=== PATIENT | male | born 1960 | race Caucasian/White ===

== ENCOUNTER 2016-07-14 23:13 | Inpatient (IN) | payer OTHER ==
[2016-07-15] MEDS ORDERED: HYDROmorphone 1 MG/ML 1 ML SYRINGE IVP STA ×2 (00:08→01:52)
[2016-07-15] MEDS ORDERED: SODIUM CHLORIDE 0.9% 1,000 ML IV STA (00:08)
[2016-07-15] MEDS ORDERED: SODIUM CHLORIDE 0.9% 500 ML IV STA (00:08)
--- NOTE | 2016-07-15 00:16 | ED ---
General Adult HPI - General Source: patient, family, RN notes reviewed, old records reviewed Mode of arrival: wheelchair Limitations: no limitations <Ced Ordaz - Last Filed: 07/15/16 01:17> <Rio Kahn - Last Filed: 07/15/16 03:02> - General Chief complaint: Abdominal Pain Stated complaint: Abd /Back Pain Time Seen by Provider: 07/14/16 23:57 - History of Present Illness Initial comments: Chief complaint and history of present illness is a 56-year-old male brought to emergency by family because of abdominal pain. Patient reports it seems toward the epigastric to right upper quadrant go straight through to the back. Patient 's temp was 101.0 upon arrival he did not think her pneumonia had a fever. Patient reports this is pain similar to the pain he had when he was previously admitted in November of last year that time he had pancreatitis with amylase and lipase significantly elevated. CAT scan that time showed acute pancreatitis with fluid in the adjacent area. Patient denies alcohol use or problems with his gallbladder. (Ced Ordaz) - Related Data Home Medications Medication Instructions Recorded Confirmed Bisoprolol-Hctz 10-6.25 mg [Ziac 1 tab PO DAILY 11/23/15 07/14/16 10-6.25 MG] Lisinopril [Zestril] 10 mg PO DAILY 11/23/15 07/14/16 Allergies Allergy/AdvReac Type Severity Reaction Status Date / Time No Known Allergies Allergy Verified 07/14/16 23:36 Review of Systems ROS Other: All systems not noted in ROS Statement are negative. <Ced Ordaz - Last Filed: 07/15/16 01:17> ROS Other: All systems not noted in ROS Statement are negative. <Rio Kahn - Last Filed: 07/15/16 03:02> ROS Statement: Those systems with pertinent positive or pertinent negative responses have been documented in the HPI. Review of systems. Patient denies any visual acuity or headache no stiff neck no chest pain or shortness of breath he has discomfort to the right upper quadrant the course through to the back. No nausea no vomiting has had a bowel movement today. No extremity pain but he has does have peripheral edema. All systems reviewed Past medical problems significant for hypertension for which she's taken several medications. Denies any surgeries. No history noncontributory. No known ALLERGIES. Patient states alcohol use is rare beer when he does drink. Every day smoker encouraged to stop smoking. (Ced Ordaz) Past Medical History Past Medical History: Hypertension Additional Past Medical History / Comment(s): . History of Any Multi-Drug Resistant Organisms: None Reported Past Surgical History: No Surgical Hx Reported Past Anesthesia/Blood Transfusion Reactions: No Reported Reaction Past Psychological History: No Psychological Hx Reported Smoking Status: Never smoker Past Alcohol Use History: Occasional Additional Past Alcohol Use History / Comment(s): Pt states 1-2 beers socially on occasion, family states at least a fifth per day Past Drug Use History: None Reported <Ced Ordaz - Last Filed: 07/15/16 01:17> General Exam Limitations: no limitations <Ced Ordaz - Last Filed: 07/15/16 01:17> <Rio Kahn - Last Filed: 07/15/16 03:02> - General Exam Comments Initial Comments: General: The patient is awake and alert, lying of epigastric and right upper quadrant pain that goes straight through to the back. No nausea no vomiting mild weakness just today. Vital signs shows temperature 101.0 pulse 73 respiratory rate 18 pulse ox 97% room air blood pressure 104/55. Eye: Pupils are equal, round and reactive to light, extra-ocular movements are intact ; there is normal conjunctiva bilaterally. No signs of icterus. Ears, nose, mouth and throat: There are moist mucous membranes and no oral lesions. Neck: The neck is supple, there is no tenderness , no anterior cervical lymphadenopathy. Cardiovascular: There is a regular rate and rhythm. No murmur, rub or gallop is appreciated. Respiratory: Lungs are clear to auscultation, respirations are non-labored, breath sounds are equal. No wheezes, stridor, rales, or rhonchi. Gastrointestinal: Tender with deep palpation to the right upper quadrant. No masses appreciated. Active bowel sounds. No rebound or referred pain. Abdominal pain goes straight through to the back area. No skin rashes noted. Back: Back pain that starts in the epigastric region of the abdomen. Musculoskeletal: Normal ROM, no tenderness, pitting edema to his knees. Neurological: No neuro deficits. Skin is warm and dry and no rashes or lesions are noted. (Ced Ordaz) Medical Decision Making - Lab Data Result diagrams: 07/15/16 00:15 04/10/17 00:15 <Ced Ordaz - Last Filed: 07/15/16 01:17> - Lab Data Result diagrams: 07/15/16 00:15 07/15/16 00:15 <Rio Kahn - Last Filed: 07/15/16 03:02> - Medical Decision Making Labs still pending. X-rays still pending. Final disposition will be determined by Dr. Kahn (Ced Ordaz) - Lab Data Lab Results 07/15/16 07/15/16 07/15/16 Range/Units 00:15 00:15 00:15 WBC 11.6 H (3.8-10.6) k/uL RBC 4.27 L (4.30-5.90) m/uL Hgb 14.6 (13.0-17.5) gm/dL Hct 44.9 (39.0-53.0) % MCV 105.2 H (80.0-100.0) fL MCH 34.2 (25.0-35.0) pg MCHC 32.5 (31.0-37.0) g/dL RDW 15.0 (11.5-15.5) % Plt Count 59 L (150-450) k/uL Neutrophils % 87 % Lymphocytes % 3 % Monocytes % 7 % Eosinophils % 0 % Basophils % 0 % Neutrophils # 10.1 H (1.3-7.7) k/uL Lymphocytes # 0.4 L (1.0-4.8) k/uL Monocytes # 0.9 (0-1.0) k/uL Eosinophils # 0.0 (0-0.7) k/uL Basophils # 0.0 (0-0.2) k/uL Manual Slide Review Performed Macrocytosis Moderate PT (9.0-12.0) sec INR (<1.1) APTT (22.0-30.0) sec Sodium 126 L (137-145) mmol/L Potassium 4.6 (3.5-5.1) mmol/L Chloride 97 L (98-107) mmol/L Carbon Dioxide 23 (22-30) mmol/L Anion Gap 6 mmol/L BUN 10 (9-20) mg/dL Creatinine 0.90 (0.66-1.25) mg/dL Est GFR (MDRD) Af Amer >60 (>60 ml/min/1.73 sqM) Est GFR (MDRD) Non-Af >60 (>60 ml/min/1.73 sqM) Glucose 101 H (74-99) mg/dL Plasma Lactic Acid Mason 1.8 (0.7-2.0) mmol/L Calcium 7.9 L (8.4-10.2) mg/dL Total Bilirubin 6.3 H (0.2-1.3) mg/dL AST 177 H (17-59) U/L ALT 76 H (21-72) U/L Alkaline Phosphatase 116 (38-126) U/L Total Protein 6.9 (6.3-8.2) g/dL Albumin 2.9 L (3.5-5.0) g/dL Amylase 1681 H* (30-110) U/L Lipase >14061 H (23-300) U/L Urine Color Urine Appearance (Clear) Urine pH (5.0-8.0) Ur Specific Pike (1.001-1.035) Urine Protein (Negative) Urine Glucose (UA) (Negative) Urine Ketones (Negative) Urine Blood (Negative) Urine Nitrite (Negative) Urine Bilirubin (Negative) Urine Urobilinogen (<2.0) mg/dL Ur Leukocyte Esterase (Negative) Serum Alcohol <10 mg/dL 07/15/16 07/15/16 Range/Units 00:15 02:04 WBC (3.8-10.6) k/uL RBC (4.30-5.90) m/uL Hgb (13.0-17.5) gm/dL Hct (39.0-53.0) % MCV (80.0-100.0) fL MCH (25.0-35.0) pg MCHC (31.0-37.0) g/dL RDW (11.5-15.5) % Plt Count (150-450) k/uL Neutrophils % % Lymphocytes % % Monocytes % % Eosinophils % % Basophils % % Neutrophils # (1.3-7.7) k/uL Lymphocytes # (1.0-4.8) k/uL Monocytes # (0-1.0) k/uL Eosinophils # (0-0.7) k/uL Basophils # (0-0.2) k/uL Manual Slide Review Macrocytosis PT 14.7 H (9.0-12.0) sec INR 1.5 (<1.1) APTT 26.4 (22.0-30.0) sec Sodium (137-145) mmol/L Potassium (3.5-5.1) mmol/L Chloride (98-107) mmol/L Carbon Dioxide (22-30) mmol/L Anion Gap mmol/L BUN (9-20) mg/dL Creatinine (0.66-1.25) mg/dL Est GFR (MDRD) Af Amer (>60 ml/min/1.73 sqM) Est GFR (MDRD) Non-Af (>60 ml/min/1.73 sqM) Glucose (74-99) mg/dL Plasma Lactic Acid Mason (0.7-2.0) mmol/L Calcium (8.4-10.2) mg/dL Total Bilirubin (0.2-1.3) mg/dL AST (17-59) U/L ALT (21-72) U/L Alkaline Phosphatase (38-126) U/L Total Protein (6.3-8.2) g/dL Albumin (3.5-5.0) g/dL Amylase (30-110) U/L Lipase (23-300) U/L Urine Color Brown Urine Appearance Clear (Clear) Urine pH 6.5 (5.0-8.0) Ur Specific Pike 1.014 (1.001-1.035) Urine Protein Trace H (Negative) Urine Glucose (UA) Negative (Negative) Urine Ketones Negative (Negative) Urine Blood Negative (Negative) Urine Nitrite Negative (Negative) Urine Bilirubin 2+ H (Negative) Urine Urobilinogen 8.0 (<2.0) mg/dL Ur Leukocyte Esterase Negative (Negative) Serum Alcohol mg/dL Disposition <Ced Ordaz - Last Filed: 07/15/16 01:17> <Rio Kahn - Last Filed: 07/15/16 03:02> Clinical Impression: Acute pancreatitis, unspecified, Abdominal pain Disposition: ADMITTED IP TO THIS [facility] Condition: Serious
[2016-07-15 00:34] LABS: Basophils % (A) 0 %; CHCM 32.5; Eosinophils % (A) 0 %; HCT 44.9 % (39.0-53.0); HDW 2.41; HGB 14.6 gm/dL (13.0-17.5); Luc # (Auto) 0.19; Luc % (Auto) 2; Lymphocytes # (A) 0.4 k/uL (1.0-4.8); Lymphocytes % (A) 3 %; MCH 34.2 pg (25.0-35.0); MCHC 32.5 g/dL (31.0-37.0); MCV 105.2 fL (80.0-100.0); Macrocytosis Moderate; Mean Platelet Volume 8.1; Monocytes # (A) 0.9 k/uL (0-1.0); Monocytes % (A) 7 %; Neutrophils # (A) 10.1 k/uL (1.3-7.7); Neutrophils % (A) 87 %; RBC 4.27 m/uL (4.30-5.90); WBC 11.6 k/uL (3.8-10.6); WBC (Perox) 11.11
[2016-07-15 00:46] LABS: INR 1.5 (<1.1); Partial Thromboplastin Time 26.4 sec (22.0-30.0); Prothrombin Time 14.7 sec (9.0-12.0)
[2016-07-15 01:02] LABS: Alcohol <10 mg/dL; Anion Gap 6 mmol/L; Calcium 7.9 mg/dL (8.4-10.2); Carbon Dioxide 23 mmol/L (22-30); Chloride 97 mmol/L (98-107); Glucose 101 mg/dL (74-99); Non-African American GFR(MDRD) >60 (>60 ml/min/1.73 sqM); Sodium 126 mmol/L (137-145); Total Bilirubin 6.3 mg/dL (0.2-1.3)
[2016-07-15 01:12] LABS: Potassium 4.6 mmol/L (3.5-5.1)
[2016-07-15 01:13] LABS: Blood Urea Nitrogen 10 mg/dL (9-20); Manual Review Performed; Total Protein 6.9 g/dL (6.3-8.2)
[2016-07-15 01:14] LABS: ALT 76 U/L (21-72); AST 177 U/L (17-59)
[2016-07-15 01:15] LABS: Alkaline Phosphatase 116 U/L (38-126)
--- NOTE | 2016-07-15 01:38 | XR ---
EXAM: XR Abdomen Complete, 2 or More Views. CLINICAL HISTORY: Right-sided abdominal pain, nausea. TECHNIQUE: Frontal view of the abdomen/pelvis with upright view of the abdomen. Total images: 3. COMPARISON: CT abdomen pelvis dated 11/23/15. FINDINGS: Intraperitoneal space: No evidence of free air. Gastrointestinal tract: There is relative paucity of bowel gas at the right abdomen, nonspecific. There is a single distended loop of small bowel at the left upper quadrant, which does not persist on the upright view. No air-fluid levels. Organs: Small calcifications at the lower pelvis suggest phleboliths. Bones/joints: Degenerative changes at the lower lumbar spine. IMPRESSION: 1. There is relative paucity of bowel gas at the right abdomen, nonspecific. Given history of right abdominal pain, an inflammatory process in this region is not excluded. If indicated, further evaluation with CT may be helpful. 2. No evidence of free air.
[2016-07-15 02:14] LABS: Appearance,Urine Clear (Clear); Bilirubin,Urine 2+ (Negative); Glucose,Urine (UA) Negative (Negative); Ketones,Urine Negative (Negative); Leukocyte Esterase,Urine Negative (Negative); Nitrite,Urine Negative (Negative); PH, Urine 6.5 (5.0-8.0); Protein,Urine Trace (Negative); Specific Gravity,Urine 1.014 (1.001-1.035); UA Billing (MACRO vs. MICRO) CHEM
[2016-07-15 02:18] LABS: Amylase 1681 U/L (30-110)
[2016-07-15] MEDS ORDERED: ONDANSETRON 4 MG/2 ML VIAL IVP PRN (02:56)
[2016-07-15] MEDS ORDERED: NALOXONE 0.4 MG/ML 1 ML VIAL IV PRN (02:56)
[2016-07-15] MEDS ORDERED: THIAMINE 100 MG/ML 2 ML VIAL IM STA (03:01)
[2016-07-15] MEDS ORDERED: LORazepam 2 MG/ML SYRINGE IV PRN ×3 (03:01)
[2016-07-15 04:18] VITALS: BMI 31.8
[2016-07-15] MEDS: SODIUM CHLORIDE 0.9% 1,000 ML IV SCH ×3 (04:32→19:23)
--- NOTE | 2016-07-15 08:16 | P.HPIM ---
History of Present Illness H&P Date: 07/15/16 Chief Complaint: Abdominal pain. This is a history of physical 56-year-old white male who has an underlying history of hypertension. He he states sudden onset abdominal pain yesterday. About 6 months ago he had previous episode of pancreatitis and because of this he returned to the emergency room and had recurrent diagnosis of recurrent acute pancreatitis. He is now stabilized but actually wants to eat. No sniffing chest pain per se. He denies any significant ethanol or illicit substance abuse. No previous gallbladder issues. GIs now consulted for recurrent pancreatitis. He seems to be stable this morning as far pain control. Review of Systems Constitutional: Denies chills, Denies fever Eyes: denies blurred vision, denies pain Ears, nose, mouth and throat: Denies headache, Denies sore throat Cardiovascular: Denies chest pain, Denies shortness of breath Respiratory: Denies cough Gastrointestinal: Reports as per HPI, Reports abdominal pain Musculoskeletal: Denies myalgias Integumentary: Denies pruritus, Denies rash Neurological: Denies numbness, Denies weakness Past Medical History Past Medical History: Hypertension Additional Past Medical History / Comment(s): . History of Any Multi-Drug Resistant Organisms: None Reported Past Surgical History: No Surgical Hx Reported Past Anesthesia/Blood Transfusion Reactions: No Reported Reaction Past Psychological History: No Psychological Hx Reported Smoking Status: Never smoker Past Alcohol Use History: Occasional Additional Past Alcohol Use History / Comment(s): Pt states 1-2 beers socially on occasion, family states at least a fifth per day Past Drug Use History: None Reported - Past Family History Mother Family Medical History: Hypertension Father Family Medical History: CVA/TIA Medications and Allergies Home Medications Medication Instructions Recorded Confirmed Type Bisoprolol-Hctz 10-6.25 mg [Ziac 1 tab PO DAILY 11/23/15 07/15/16 History 10-6.25 MG] Lisinopril [Zestril] 10 mg PO DAILY 11/23/15 07/15/16 History Allergies Allergy/AdvReac Type Severity Reaction Status Date / Time No Known Allergies Allergy Verified 07/15/16 07:51 Physical Exam Vitals: Vital Signs Temp Pulse Pulse Resp BP BP Pulse Ox 07/15/16 07:00 99.0 F 74 16 145/88 97 07/15/16 03:05 99.1 F 79 18 131/63 95 Intake and Output 07/14/16 07/15/16 07/15/16 22:59 06:59 14:59 Intake Total 1200 Balance 1200 Intake: Amount of Fluid Infused ( 1200 ml) Other: # Voids 0 Weight 103.8 kg - Constitutional General appearance: obese - EENT Eyes: EOMI - Neck Neck: no lymphadenopathy - Respiratory Respiratory: bilateral: CTA - Cardiovascular Rhythm: regular - Gastrointestinal General gastrointestinal: soft, no tenderness - Neurologic Neurologic: CNII-XII intact - Musculoskeletal Musculoskeletal: gait normal Results CBC & Chem 7: 07/15/16 00:15 07/15/16 00:15 Thrombosis Risk Factor Assmnt - Choose All That Apply Any of the Below Risk Factors Present?: Yes Each Factor Represents 1 point: Age 41-60 years Other Risk Factors: No Thrombosis Risk Factor Assessment Total Risk Factor Score: 1 Thrombosis Risk Factor Assessment Level: Low Risk Assessment and Plan (1) Acute pancreatitis, unspecified Status: Acute (2) Hypertension Status: Acute Plan: Reconcile home medications as necessary. Question need to stop JERMAINE inhibitor secondary to pancreatitis. However, he is tolerating this medication for many many years. Check CMP with amylase and lipase in a.m. Await GI input. We'll go ahead and order computed tomography scan without contrast. Time with Patient: Greater than 30
[2016-07-15] MEDS: PANTOPRAZOLE 40 MG/10 ML VIAL IV SCH (08:35)
[2016-07-15] MEDS: HYDROmorphone 1 MG/ML 1 ML SYRINGE IV PRN ×3 (08:36→22:09)
--- NOTE | 2016-07-15 09:19 | P.CONS ---
History of Present Illness - Reason for Consult Consult date: 07/15/16 Pancreatitis Requesting physician: Noman Ramos - History of Present Illness 56-year-old gentleman patient of Dr. Ramos past medical history hypertension presents with jaundice, fever, epigastric pain and elevated pancreatic enzymes consistent with acute pancreatitis. Patient was hospitalized in November 2015 with acute pancreatitis at time of unclear etiology. Pain started yesterday in the mid epigastrium with nausea vomiting. Denies hematemesis hematochezia or melena. CT abdomen and pelvis November 2015 reported extensive retroperitoneal fluid around the pancreas. Gallbladder showed no wall thickening. Bile ducts were not dilated. No mentioning of gallstones. He was advised to follow up in the GI office but did not. Patient vehemently denies EtOH abuse but drinks "a few beers here and there". According to the medical records family states that he drinks fifth of liquor a day sometimes. Admission white count 11.6. Hemoglobin 14.6. MCV 105. Platelet 59. INR 1.5. Total bilirubin 6.3. AST 177. ALT 76. Alkaline phosphatase 116. Lipase greater than 20,000. Amylase 1681. Serum alcohol less than 10. Denies changes in his color of urine or stool. T-max 101. Review of Systems Constitutional: Denies fever, chills, sweats, weight gain, or loss. HEENT: Negative for migraines, blurred vision or loss, earaches, drainage, tinnitus, oral mucosal lesions, dysphagia, or odynophagia. Cardiac: Hypertension. Negative for chest pain, arrhythmias, or palpitation. Respiratory: Negative for shortness of breath, hemoptysis, cough, or sputum production. Gastrointestinal: See HPI for pertinent findings. Genitourinary: Negative for hematuria, urgency, frequency, polyuria, dysuria, or penile discharge. Musculoskeletal: Negative for muscle aches, swelling, arthritis, and arthralgias. Neurologic: Negative for stroke or TIA. Endocrine: Negative for thyroid problems. Skin: Negative for rash or itching. Psychiatric: Negative history for depression and anxiety All systems: negative (See HPI) Past Medical History Past Medical History: Hypertension Additional Past Medical History / Comment(s): . History of Any Multi-Drug Resistant Organisms: None Reported Past Surgical History: No Surgical Hx Reported Past Anesthesia/Blood Transfusion Reactions: No Reported Reaction Past Psychological History: No Psychological Hx Reported Smoking Status: Never smoker Past Alcohol Use History: Occasional Additional Past Alcohol Use History / Comment(s): Pt states 1-2 beers socially on occasion, family states at least a fifth per day Past Drug Use History: None Reported - Past Family History Mother Family Medical History: Hypertension Father Family Medical History: CVA/TIA Medications and Allergies Home Medications Medication Instructions Recorded Confirmed Type Bisoprolol-Hctz 10-6.25 mg [Ziac 1 tab PO DAILY 11/23/15 07/15/16 History 10-6.25 MG] Lisinopril [Zestril] 10 mg PO DAILY 11/23/15 07/15/16 History Allergies Allergy/AdvReac Type Severity Reaction Status Date / Time No Known Allergies Allergy Verified 07/15/16 07:51 Physical Exam Vitals: Vital Signs Temp Pulse Pulse Resp BP BP Pulse Ox 07/15/16 07:00 99.0 F 74 16 145/88 97 07/15/16 03:05 99.1 F 79 18 131/63 95 Intake and Output 07/14/16 07/15/16 07/15/16 22:59 06:59 14:59 Intake Total 1200 Balance 1200 Intake: Amount of Fluid Infused ( 1200 ml) Other: # Voids 0 Weight 103.8 kg General appearance: The patient is alert, oriented, in no acute distress. Jaundice. HET: Head is normocephalic and atraumatic. Pupils are equal and reactive. Facial telangiectasias. Sclerae icterus. Oropharynx is clear without lesions. Neck: Supple without lymphadenopathy. Trachea midline. Heart: S1 S2. Regular rate and rhythm. Lungs: No crackles or wheezes are heard. Abdomen: Soft, epigastric tenderness, nondistended with bowel sounds. Reducible umbilical hernia. No peritoneal signs. No palpable organomegaly or masses. Extremities: Palmar erythema. Mild asterixis. Normal skin color and turgor. No cyanosis, rash, ulceration, clubbing, or edema. Radial and pedal pulses are 2/4 bilaterally. Neurological: No focal deficits. Strength and sensation are grossly intact. Results CBC & Chem 7: 07/17/16 09:38 07/19/16 08:48 CT scan - abdomen: pending Assessment and Plan (1) Acute pancreatitis Narrative/Plan: 56-year-old male admitted with acute pancreatitis with jaundice fever and elevated liver enzymes. Cannot exclude underlying cholangitis. This is his second episode of acute pancreatitis in several months. Suspect alcohol pancreatitis and hepatitis even though patient denies EtOH consumption on a daily basis. Biochemically he exhibits features of underlying chronic liver disease possibly from alcohol with thrombocytopenia, macrocytosis mild coagulopathy with physical stigmata of facial telangiectasia, mild asterixis, and mild palmar erythema. Will also obtain serology for workup for autoimmune pancreatitis as well. Status: Acute (2) Acute hepatitis Status: Acute (3) Jaundice Status: Acute (4) Fever Status: Acute (5) Thrombocytopenia Status: Acute (6) Coagulopathy Status: Acute (7) Macrocytosis without anemia Status: Acute Plan: 1. Check ammonia level, GGT , AFP and hepatitis panel. 2. IV Protonix 40 mg daily. 3. Computed tomography scan abdomen. 4. EtOH withdrawal protocol. 5. Blood cultures pending. 6. IV antibiotics recommended if he has recurrent fevers and/or CT shows evidence of cholangitis. Fever could be reactive to pancreatitis and hepatitis. 7. Consideration for oral prednisone for treatment of alcohol hepatitis based on clinical course. Thank you for this kind referral and the opportunity to participate in the care of your patient. This consultation was discussed with Dr. Smith. The impression and plan of care have been directed as dictated.
--- NOTE | 2016-07-15 11:05 | CT ---
EXAMINATION TYPE: CT abdomen w con DATE OF EXAM: 07/15/2016 9:19 AM COMPARISON: 11/23/2015 INDICATION: Patient having abdominal pain. Pancreatitis per order DLP: 1246 mGycm, Automated exposure control for dose reduction was used. CONTRAST: 100 mL of Omnipaque 300. Study performed without Oral Contrast TECHNIQUE: Axial images were obtained from above the diaphragm to the pubic rami in the axial plane a t 5 mm thick sections. Reconstructed images are reviewed on the computer in the coronal plane. FINDINGS: Limited CT sections are obtained the lung bases. Minimal compressive atelectasis is in the dependent portions of the lung bases bilaterally.. CT ABDOMEN: Liver: Small amount of fluid is adjacent to the liver. Mild diminished density in the liver is presen t. Correlate for mild fatty infiltration liver. Spleen: Small amount of fluid is adjacent to the spleen. Pancreas: There may be some mild fluid or inflammatory changes adjacent to the pancreas. Consider lares creatitis within the differential. This would be greater at the tail. Adrenal glands: The adrenal glands are normal. Gallbladder: Small amount of fluid may be near the neck of the gallbladder. Acute cholecystitis is no t excluded. Small gallstone appears to be present. Kidneys: No masses are evident. No hydronephrosis is present. A 0.9 cm mid to superior right renal cortical cyst is present on delayed images. Delayed images were obtained through the kidneys, which remain unremarkable. Aorta: Vascular calcification is within the aorta. Inferior vena cava: Normal. Loops of bowel without oral contrast within the abdomen appear unremarkable. IMPRESSIONS: 1. Mild diffuse ascites. 2. Small gallstone with some minimal pericholecystic fluid. Acute cholecystitis is not excluded. 3. Some fluid is also adjacent to the pancreas, mild pancreatitis is not excluded. 4. Cortical renal cyst right kidney. 5. Mild fatty infiltration of the liver
[2016-07-15 17:14] LABS: GGT 310 U/L (15-73)
[2016-07-15 17:46] LABS: Hepatitis B Surface Ag Index 0.05
[2016-07-15 17:52] LABS: Hepatitis B Core IgM Index 0.03
[2016-07-15 18:04] LABS: Hepatitis C Virus IgG Index 0.08
[2016-07-15 18:05] LABS: Hepatitis C Virus IgG Ab Negative (Negative)
[2016-07-15] MEDS: THIAMINE 100 MG TAB PO SCH (18:18)
[2016-07-16] MEDS: SODIUM CHLORIDE 0.9% 1,000 ML IV SCH ×3 (04:14→21:35)
[2016-07-16] MEDS: HYDROmorphone 1 MG/ML 1 ML SYRINGE IV PRN ×3 (06:54→21:38)
[2016-07-16] MEDS: BISOPROLOL-HCTZ 10-6.25 MG 1 EACH TAB PO SCH (07:59)
[2016-07-16] MEDS: LISINOPRIL 10 MG TAB PO SCH (07:59)
[2016-07-16] MEDS: PANTOPRAZOLE 40 MG/10 ML VIAL IV SCH (07:59)
--- NOTE | 2016-07-16 08:24 | P.PN ---
Subjective Principal diagnosis: pancreatitis/continued care. This is a continue progress note on a 56-year-old white male essentially admitted for recurrent pancreatitis. He has been placed on withdrawal protocol even though he vehemently denies any type of ethanol use. Enzymes are pending for this morning. Appreciate GI input. Objective - Vital Signs Vital signs: Vital Signs Temp 100.5 F H 07/16/16 07:00 Pulse 84 07/16/16 07:00 Resp 16 07/16/16 07:00 BP 134/71 07/16/16 07:00 Pulse Ox 92 L 07/16/16 07:00 Intake & Output 07/15/16 07/16/16 07/16/16 18:59 06:59 18:59 Intake Total 800 Balance 800 Intake: Intake, IV Titration 800 Amount Sodium Chloride 0.9% 1, 800 000 ml @ 125 mls/hr IV . Q8H BRIDGETT Rx#:[id number] Other: # Voids 3 2 - Constitutional General appearance: Present: average body habitus - EENT Eyes: Absent: abnormal pupil - Neck Neck: Absent: lymphadenopathy - Respiratory Respiratory: bilateral: CTA - Gastrointestinal General gastrointestinal: Present: soft. Absent: tenderness - Neurologic Neurologic: Present: CNII-XII intact - Musculoskeletal Musculoskeletal: Present: gait normal - Labs CBC & Chem 7: 07/15/16 00:15 07/15/16 00:15 Labs: Abnormal Lab Results - Last 24 Hours (Table) 07/15/16 07/15/16 Range/Units 09:38 16:22 GGT 310 H (15-73) U/L Ammonia 32 H (<30) umol/L Assessment and Plan (1) Acute pancreatitis, unspecified Status: Acute (2) Hypertension Status: Acute Plan: continue current treatment. We will hopefully be able advance diet later today. Check CBC, CMP, amylase and lipase. Continue current regimen of treatment otherwise.
--- NOTE | 2016-07-16 09:57 | P.PN ---
Subjective Principal diagnosis: Pancreatitis 56-year-old male limited with acute pancreatitis with suspected underlying alcohol abuse history. CT abdomen reported no evidence of pseudocyst, abscess with inflammatory changes around the pancreas consistent with acute pancreatitis. Diffuse mild abdominal ascites. AFP 3.9. GGT 310. Hepatitis panel negative. Abdominal pain still present but improving. Morning chemistries pending. Objective - Vital Signs Vital signs: Vital Signs Temp 100.5 F H 07/16/16 07:00 Pulse 84 07/16/16 07:00 Resp 16 07/16/16 07:00 BP 134/71 07/16/16 07:00 Pulse Ox 92 L 07/16/16 07:00 Intake & Output 07/15/16 07/16/16 07/16/16 18:59 06:59 18:59 Intake Total 800 Balance 800 Intake: Intake, IV Titration 800 Amount Sodium Chloride 0.9% 1, 800 000 ml @ 125 mls/hr IV . Q8H [facility] Rx#:[id number] Other: Voiding Method Toilet # Voids 3 2 - Exam General appearance: The patient is alert, oriented, in no acute distress. Jaundice. HET: Head is normocephalic and atraumatic. Pupils are equal and reactive. Oropharynx is clear without lesions. Sclerae icterus. Facial telangiectasias. Neck: Supple without lymphadenopathy. Trachea midline. Heart: S1 S2. Regular rate and rhythm. Lungs: No crackles or wheezes are heard. Abdomen: Soft, midepigastric tenderness, mildly bloated with bowel sounds. Reducible umbilical hernia No peritoneal signs. No palpable organomegaly or masses. Extremities: Normal skin color and turgor. No cyanosis, rash, ulceration, clubbing, or edema. Radial and pedal pulses are 2/4 bilaterally. Mild bilateral palmar erythema. Neurological: No focal deficits. Strength and sensation are grossly intact. - Labs CBC & Chem 7: 07/15/16 00:15 07/15/16 00:15 Labs: Abnormal Lab Results - Last 24 Hours (Table) 07/15/16 07/15/16 Range/Units 09:38 16:22 GGT 310 H (15-73) U/L Ammonia 32 H (<30) umol/L Assessment and Plan (1) Acute pancreatitis Narrative/Plan: Suspect alcohol pancreatitis and hepatitis Status: Acute (2) Acute hepatitis Status: Acute (3) Jaundice Status: Acute (4) Fever Status: Acute (5) Thrombocytopenia Status: Acute (6) Coagulopathy Status: Acute (7) Macrocytosis without anemia Status: Acute Plan: 1. Ammonia slightly elevated 32 yesterday. Lactulose 20 g daily. Alcohol abstinence and avoidance of hepatotoxic medications discussed with patient. 2. Clear liquid diet with slow advancement as tolerated today. 3. We'll continue to follow with you. 4. Return to GI office in 1-2 weeks after discharge. Assessment and plan a care discussed with Dr. Smith.
[2016-07-16 09:59] LABS: ALT 57 U/L (21-72); AST 84 U/L (17-59); Alkaline Phosphatase 90 U/L (38-126); Anion Gap 5 mmol/L; Blood Urea Nitrogen 15 mg/dL (9-20); Calcium 6.7 mg/dL (8.4-10.2); Carbon Dioxide 21 mmol/L (22-30); Chloride 102 mmol/L (98-107); Glucose 68 mg/dL (74-99); Non-African American GFR(MDRD) >60 (>60 ml/min/1.73 sqM); Potassium 3.9 mmol/L (3.5-5.1); Sodium 128 mmol/L (137-145); Total Bilirubin 5.7 mg/dL (0.2-1.3); Total Protein 5.5 g/dL (6.3-8.2)
[2016-07-16 10:14] LABS: Basophils % (A) 0 %; CH 33.4; CHCM 32.3; Eosinophils # (A) 0.1 k/uL (0-0.7); Eosinophils % (A) 1 %; HCT 35.7 % (39.0-53.0); HDW 2.39; Luc % (Auto) 3; Lymphocytes # (A) 0.5 k/uL (1.0-4.8); Lymphocytes % (A) 7 %; MCH 35.1 pg (25.0-35.0); MCHC 33.7 g/dL (31.0-37.0); MCV 104.3 fL (80.0-100.0); Macrocytosis Moderate; Mean Platelet Volume 8.2; Monocytes # (A) 0.6 k/uL (0-1.0); Monocytes % (A) 9 %; Neutrophils # (A) 5.3 k/uL (1.3-7.7); Neutrophils % (A) 81 %; RBC 3.43 m/uL (4.30-5.90); RDW 14.9 % (11.5-15.5); WBC 6.6 k/uL (3.8-10.6); WBC (Perox) 6.68
[2016-07-16 10:16] LABS: Amylase 356 U/L (30-110)
[2016-07-16] MEDS: LACTULOSE 20 GM/30 ML CUP PO SCH (10:21)
[2016-07-16] MEDS: THIAMINE 100 MG TAB PO SCH ×2 (11:10→17:13)
[2016-07-16 11:34] LABS: IgG Subclass 4 48.1 mg/dL (3.0-175.0)
[2016-07-17] MEDS: SODIUM CHLORIDE 0.9% 1,000 ML IV SCH ×3 (03:00→18:05)
[2016-07-17] MEDS: HYDROmorphone 1 MG/ML 1 ML SYRINGE IV PRN (07:44)
[2016-07-17] MEDS: LACTULOSE 20 GM/30 ML CUP PO SCH (08:12)
[2016-07-17] MEDS: LISINOPRIL 10 MG TAB PO SCH (08:19)
[2016-07-17] MEDS: PANTOPRAZOLE 40 MG/10 ML VIAL IV SCH (08:19)
[2016-07-17] MEDS: BISOPROLOL-HCTZ 10-6.25 MG 1 EACH TAB PO SCH (08:19)
--- NOTE | 2016-07-17 09:03 | P.PN ---
Subjective Principal diagnosis: Pancreatitis This is a continue present on a 56-year-old white male essentially admitted for recurrent bronchitis. We'll long discussion and didn't appropriate alcohol screen. He does score low for risk. However, within ammonia level elevating, he states that the lactulose is Having difficulty secondary to side effects of severe diarrhea. Otherwise, enzymatic elevation is now normalizing. He seems to be tolerating his diet. Objective - Vital Signs Vital signs: Vital Signs Temp 100.6 F H 07/17/16 07:00 Pulse 86 07/17/16 07:00 Resp 18 07/17/16 07:00 BP 150/73 07/17/16 07:00 Pulse Ox 94 L 07/17/16 07:00 Intake & Output 07/16/16 07/17/16 07/17/16 18:59 06:59 18:59 Intake Total 1480 Balance 1480 Intake: Intake, IV Titration 1000 Amount Sodium Chloride 0.9% 1, 1000 000 ml @ 125 mls/hr IV . Q8H [facility] Rx#:[id number] Oral 480 Other: Voiding Method Toilet # Voids 2 1 1 # Bowel Movements 2 - Constitutional General appearance: Present: obese - Respiratory Respiratory: bilateral: CTA - Cardiovascular Rhythm: regular Heart sounds: normal: S1, S2 - Gastrointestinal General gastrointestinal: Present: soft. Absent: tenderness - Labs CBC & Chem 7: 07/16/16 09:03 07/16/16 09:03 Labs: Abnormal Lab Results - Last 24 Hours (Table) 07/15/16 07/16/16 07/16/16 Range/Units 16:22 09:03 09:03 RBC 3.43 L (4.30-5.90) m/uL Hgb 12.0 L (13.0-17.5) gm/dL Hct 35.7 L (39.0-53.0) % MCV 104.3 H (80.0-100.0) fL MCH 35.1 H (25.0-35.0) pg Plt Count 43 L* (150-450) k/uL Lymphocytes # 0.5 L (1.0-4.8) k/uL Sodium 128 L (137-145) mmol/L Carbon Dioxide 21 L (22-30) mmol/L Glucose 68 L (74-99) mg/dL Calcium 6.7 L (8.4-10.2) mg/dL Total Bilirubin 5.7 H (0.2-1.3) mg/dL AST 84 H (17-59) U/L Total Protein 5.5 L (6.3-8.2) g/dL Albumin 2.1 L (3.5-5.0) g/dL Amylase 356 H* (30-110) U/L Lipase 2686 H (23-300) U/L IgG3 123.0 H (11.0-85.0) mg/dL Assessment and Plan (1) Acute pancreatitis, unspecified Status: Acute (2) Hypertension Status: Acute Plan: Continue current regimen of treatment. Hold lactulose if the patient does not tolerate side effects. Otherwise, had a long discussion regarding alcoholic risk and abstinence. Check CMP with amylase and lipase in a.m. Anticipate discharge in next 24-48 hours. Time with Patient: Less than 30
[2016-07-17 10:14] LABS: CH 33.4; HCT 35.4 % (39.0-53.0); HDW 2.34; HGB 11.9 gm/dL (13.0-17.5); MCH 35.4 pg (25.0-35.0); MCHC 33.7 g/dL (31.0-37.0); MCV 104.9 fL (80.0-100.0); Macrocytosis Moderate; Mean Platelet Volume 8.1; RBC 3.37 m/uL (4.30-5.90); RDW 14.9 % (11.5-15.5); WBC 8.9 k/uL (3.8-10.6)
[2016-07-17 10:31] LABS: ALT 58 U/L (21-72); AST 79 U/L (17-59); Alkaline Phosphatase 96 U/L (38-126); Amylase 73 U/L (30-110); Anion Gap 6 mmol/L; Blood Urea Nitrogen 10 mg/dL (9-20); Calcium 6.9 mg/dL (8.4-10.2); Carbon Dioxide 20 mmol/L (22-30); Chloride 103 mmol/L (98-107); Glucose 131 mg/dL (74-99); Non-African American GFR(MDRD) >60 (>60 ml/min/1.73 sqM); Potassium 3.5 mmol/L (3.5-5.1); Sodium 129 mmol/L (137-145); Total Bilirubin 7.2 mg/dL (0.2-1.3); Total Protein 5.6 g/dL (6.3-8.2)
[2016-07-17] MEDS: THIAMINE 100 MG TAB PO SCH ×2 (11:16→18:05)
[2016-07-17] MEDS: IBUPROFEN 400 MG TAB PO PRN (16:02)
--- NOTE | 2016-07-17 16:22 | XR ---
EXAMINATION TYPE: XR chest 2V DATE OF EXAM: 07/17/2016 4:13 PM COMPARISON: NONE HISTORY: Cough, congestion, and fever. TECHNIQUE: Frontal and lateral views of the chest are obtained. FINDINGS: There is no focal air space opacity or pneumothorax seen. The cardiac silhouette size is upper limits of normal. There are tiny bilateral pleural effusions with blunting of posterior costop hrenic angles. The osseous structures are intact. IMPRESSION: Tiny bilateral pleural effusions, no suspicious focal infiltrate.
--- NOTE | 2016-07-17 18:49 | PN ---
DATE OF SERVICE: 07/17/2016 Patient is a 56-year-old pleasant white male admitted to the hospital with acute recurrent pancreatitis, this being his second episode. Last episode was in November of 2015. He was noted to have elevated amylase and lipase. Overall he is feeling much better today. He still has some epigastric pain. Last pain medication was given at 9:00 this morning. He is presently on a soft diet, tolerating well. No nausea. No vomiting. He had some diarrhea yesterday, which has since resolved. No fever, chills, night sweats. On physical examination, he appears comfortable. No apparent distress. Vital signs are stable. Blood pressure 150/73, pulse rate 86. Temperature was 100.6. HEENT EXAMINATION: Unremarkable. Conjunctivae pink. Sclerae anicteric. Oral cavity with no lesions. NECK: No JVD or lymph node enlargement. Chest was clear to auscultation. HEART: Regular rate and rhythm. ABDOMEN: Soft. Mild tenderness in the epigastric area. Bowel sounds are positive. No organomegaly. EXTREMITIES: No pedal edema. SKIN: No rashes. NEURO: Alert and oriented x3. No focal deficits. Labs done from today showed bilirubin of 7.2, AST 79, ALT 58, alkaline phosphatase 96. Amylase 73, lipase 727. Platelets 50,000, WBC 8.9, hemoglobin 11.9. IMPRESSION: 1. Acute recurrent pancreatitis, possibly related to alcohol use, though the patient denies drinking any alcohol. But as per the family, he drinks about a fifth a day. Presently resolving. Amylase and lipase are gradually improving. 2. Elevated bilirubin and mild elevation of AST more than ALT, all consistent with acute alcoholic hepatitis. Recent CT of the abdomen and pelvis showed evidence of fatty liver but no evidence of biliary ductal dilation. 3. Thrombocytopenia, probably related to underlying liver cirrhosis. RECOMMENDATIONS: 1. Agree with soft diet. 2. Repeat labs in the morning. 3. If ( ) improving, he can be discharged home with outpatient followup in 1 to 2 weeks.
[2016-07-18] MEDS: HYDROmorphone 1 MG/ML 1 ML SYRINGE IV PRN ×3 (00:20→16:37)
[2016-07-18] MEDS: SODIUM CHLORIDE 0.9% 1,000 ML IV SCH ×3 (00:34→11:37)
[2016-07-18] MEDS: PANTOPRAZOLE 40 MG TABLET PO SCH (08:23)
[2016-07-18] MEDS: LACTULOSE 20 GM/30 ML CUP PO SCH (08:24)
[2016-07-18] MEDS: BISOPROLOL-HCTZ 10-6.25 MG 1 EACH TAB PO SCH (08:24)
[2016-07-18] MEDS: LISINOPRIL 10 MG TAB PO SCH (08:24)
--- NOTE | 2016-07-18 08:53 | P.PN ---
Subjective Principal diagnosis: Pancreatitis This continue process on a 56-year-old white male essentially admitted for acute pancreatitis. Enzymatic laboratory examination does show significant improvement. He does complain of pain. He is tolerating soft diet. We will go ahead and add Creon today. No significant fever or chills. He is emulating without difficulty. Objective - Vital Signs Vital signs: Vital Signs Temp 98.5 F 07/18/16 07:00 Pulse 73 07/18/16 07:00 Resp 16 07/18/16 07:00 BP 132/63 07/18/16 07:00 Pulse Ox 96 07/18/16 07:00 Intake & Output 07/17/16 07/18/16 07/18/16 18:59 06:59 18:59 Intake Total 1000 Balance 1000 Intake: IV 1000 Sodium Chloride 0.9% 1, 1000 000 ml @ 125 mls/hr IV . Q8H [facility] Rx#:[id number] Other: Voiding Method Toilet # Voids 1 2 - Constitutional General appearance: Present: obese - EENT Eyes: Absent: abnormal pupil - Cardiovascular Rhythm: regular Heart sounds: normal: S1, S2 - Gastrointestinal General gastrointestinal: Present: soft. Absent: tenderness - Neurologic Neurologic: Present: CNII-XII intact - Labs CBC & Chem 7: 07/17/16 09:38 07/17/16 09:38 Labs: Abnormal Lab Results - Last 24 Hours (Table) 07/17/16 07/17/16 Range/Units 09:38 09:38 RBC 3.37 L (4.30-5.90) m/uL Hgb 11.9 L (13.0-17.5) gm/dL Hct 35.4 L (39.0-53.0) % MCV 104.9 H (80.0-100.0) fL MCH 35.4 H (25.0-35.0) pg Plt Count 50 L* (150-450) k/uL Sodium 129 L (137-145) mmol/L Carbon Dioxide 20 L (22-30) mmol/L Glucose 131 H (74-99) mg/dL Calcium 6.9 L (8.4-10.2) mg/dL Total Bilirubin 7.2 H (0.2-1.3) mg/dL AST 79 H (17-59) U/L Total Protein 5.6 L (6.3-8.2) g/dL Albumin 2.1 L (3.5-5.0) g/dL Lipase 727 H (23-300) U/L Assessment and Plan (1) Acute pancreatitis, unspecified Status: Acute (2) Hypertension Status: Acute Plan: Go ahead and KVO IV fluid. Anticipate discharge in next 24 hours and Check amylase and lipase in a.m. Time with Patient: Less than 30
[2016-07-18 09:38] LABS: ALT 57 U/L (21-72); AST 81 U/L (17-59); Alkaline Phosphatase 95 U/L (38-126); Anion Gap 6 mmol/L; Blood Urea Nitrogen 9 mg/dL (9-20); Calcium 6.9 mg/dL (8.4-10.2); Carbon Dioxide 22 mmol/L (22-30); Chloride 101 mmol/L (98-107); Glucose 125 mg/dL (74-99); Non-African American GFR(MDRD) >60 (>60 ml/min/1.73 sqM); Potassium 3.3 mmol/L (3.5-5.1); Sodium 129 mmol/L (137-145); Total Bilirubin 7.7 mg/dL (0.2-1.3); Total Protein 5.6 g/dL (6.3-8.2)
[2016-07-18] MEDS ORDERED: Potassium Replacement Protocol 1 EACH MISC MISCELLANE PRN (11:07)
[2016-07-18] MEDS: POTASSIUM CHLORIDE ER 20 MEQ TAB.ER PO SCH ×4 (11:37→18:25)
[2016-07-18] MEDS: LIPASE 5,000/PROTEASE 17,000/AMYLASE 27,0000 PO SCH ×2 (11:38→16:34)
[2016-07-18] MEDS: THIAMINE 100 MG TAB PO SCH ×2 (11:39→16:34)
[2016-07-18 16:31] LABS: Magnesium 1.8 mg/dL (1.6-2.3); Potassium 3.5 mmol/L (3.5-5.1)
--- NOTE | 2016-07-18 17:56 | PN ---
DATE OF SERVICE: 07/18/2016 Patient is a 56-year-old pleasant white male admitted to the hospital with acute alcoholic pancreatitis as well as acute alcoholic hepatitis. The patient is feeling much better. The abdominal pain has resolved. He is at present on a soft diet, tolerating it well. No fever, chills, night sweats. On physical examination, blood pressure is 144/71, pulse rate 73, temperature 99.3. HEENT EXAMINATION: Unremarkable. Conjunctivae pink. Sclerae anicteric. Oral cavity with no lesions. NECK: No JVD or lymph node enlargement. Chest was clear to auscultation. HEART: Regular rate and rhythm. ABDOMEN: Soft, nontender, nondistended. Liver and spleen not palpable. Bowel sounds are positive. No organomegaly. EXTREMITIES: No pedal edema. SKIN: No rashes. NEURO: He is alert and oriented x3. No focal deficits. LABS FROM TODAY: CBC is not available. Bilirubin is 7.7. AST 81. ALT 57. Amylase and lipase from yesterday 73 and 727, respectively. IMPRESSION: 1. Acute pancreatitis related to alcohol use, gradually improving. 2. Acute alcoholic hepatitis with elevated serum transaminases as well as total bilirubin up to 7.7; remains stable. Ultrasound showed fatty liver disease. RECOMMENDATIONS: 1. Continue with soft low-fat diet. 2. Repeat labs in the morning. If they are improving, he can be discharged home with outpatient followup in 2 weeks. He was advised to remain abstinent from alcohol.
[2016-07-18] MEDS: IBUPROFEN 400 MG TAB PO PRN (18:25)
[2016-07-19 07:42] VITALS: BP 124/60; PULSE 79; RESP 20; TEMP 97.6
[2016-07-19] MEDS: LISINOPRIL 10 MG TAB PO SCH (08:06)
[2016-07-19] MEDS: LACTULOSE 20 GM/30 ML CUP PO SCH (08:06)
[2016-07-19] MEDS: BISOPROLOL-HCTZ 10-6.25 MG 1 EACH TAB PO SCH (08:06)
[2016-07-19] MEDS: LIPASE 5,000/PROTEASE 17,000/AMYLASE 27,0000 PO SCH ×2 (08:06→13:02)
[2016-07-19] MEDS: PANTOPRAZOLE 40 MG TABLET PO SCH (08:06)
[2016-07-19] MEDS: HYDROmorphone 1 MG/ML 1 ML SYRINGE IV PRN (08:09)
[2016-07-19 09:32] LABS: ALT 62 U/L (21-72); AST 98 U/L (17-59); Alkaline Phosphatase 99 U/L (38-126); Amylase 61 U/L (30-110); Anion Gap 5 mmol/L; Blood Urea Nitrogen 8 mg/dL (9-20); Carbon Dioxide 23 mmol/L (22-30); Chloride 102 mmol/L (98-107); Glucose 140 mg/dL (74-99); Non-African American GFR(MDRD) >60 (>60 ml/min/1.73 sqM); Potassium 3.8 mmol/L (3.5-5.1); Sodium 130 mmol/L (137-145); Total Bilirubin 6.4 mg/dL (0.2-1.3); Total Protein 5.6 g/dL (6.3-8.2)
[2016-07-19] MEDS: SODIUM CHLORIDE 0.9% 1,000 ML IV SCH (10:36)
--- NOTE | 2016-07-19 10:47 | P.DS ---
Providers Date of admission: 07/15/16 03:02 Attending physician: Noman Ramos Primary care physician: Noman Ramos - Discharge Diagnosis(es) (1) Acute pancreatitis, unspecified Current Visit: Yes Status: Acute (2) Hypertension Current Visit: No Status: Acute Hospital Course: This is a discharge summary 56-year-old white male essentially admitted for recurrent pancreatitis. The patient may him and he denies ethanol use however patient's family states at least a pint of fifth daily of alcohol. GGT was elevated also. His bilirubin has not come down to 80 nominal level at this time but his pancreatic enzymes are now stabilizing and the patient is tolerating diet. We will go ahead and send him on appropriate GI prophylaxis with appropriate pancreatic enzyme replacement. He will follow-up with me in 7 days. Patient Condition at Discharge: Serious Plan - Discharge Summary New Discharge Prescriptions: Lipase/Protease/Amylase [Jordan Dozier 5,000 Units Capsule] 1 each PO AC-TID #90 capsule. Lipase/Protease/Amylase [Jordan Dozier 5,000 Units Capsule] 1 each PO AC-TID #90 capsule. Pantoprazole [Protonix] 40 mg PO AC-BRKFST #30 tablet.dr Discharge Medication List Bisoprolol-Hctz 10-6.25 mg [Ziac 10-6.25 MG] 1 tab PO DAILY 11/23/15 [History] Lisinopril [Zestril] 10 mg PO DAILY 11/23/15 [History] Lipase/Protease/Amylase [Jordan Dozier 5,000 Units Capsule] 1 each PO AC-TID #90 capsule. 07/19/16 [Rx] Lipase/Protease/Amylase [Jordan Dozier 5,000 Units Capsule] 1 each PO AC-TID #90 capsule. 07/19/16 [Rx] Pantoprazole [Protonix] 40 mg PO AC-BRKFST #30 tablet. 07/19/16 [Rx] Follow up Appointment(s)/Referral(s): Ana Rosa Smith MD [STAFF PHYSICIAN] - 1 Week Noman Ramos MD [Primary Care Provider] - 3 Days Patient Instructions/Handouts: Pancreatitis (DC) Discharge Disposition: HOME SELF-CARE
[2016-07-19] MEDS: THIAMINE 100 MG TAB PO SCH (13:02)
== END 2016-07-19 13:27 | disposition home or self-care (01) | DRG 439 ==
LOC: EC 23:13 → 4MS4W 07-15 03:02
PROVIDERS: ADMIT Family Medicine; ATTEND Family Medicine
DX: K85.20 Alcohol induced acute pancreatitis without necrosis or infection (principal); D68.9 Coagulation defect, unspecified; D69.59 Other secondary thrombocytopenia; K86.1 Other chronic pancreatitis; K70.31 Alcoholic cirrhosis of liver with ascites; K70.11 Alcoholic hepatitis with ascites; D75.89 Other specified diseases of blood and blood-forming organs; I10 Essential (primary) hypertension; K76.0 Fatty (change of) liver, not elsewhere classified; R19.7 Diarrhea, unspecified; Z79.899 Other long term (current) drug therapy; Z82.49 Family history of ischemic heart disease and other diseases of the circulatory system
CPT/HCPCS: 36415; 71020; 74020; 74160; 80053; 80074; 80320; 81003; 82105; 82140; 82150; 82787; 82977; 83605; 83615; 83690; 83735; 84132; 85025; 85027; 85610; 85730; 86038; 87040; 87086; 96361; 96372; 96374; 96376; 99285

== ENCOUNTER 2016-12-07 08:59 | Inpatient (IN) | payer OTHER ==
[2016-12-07] MEDS ORDERED: SODIUM CHLORIDE 0.9% 1,000 ML IV STA ×2 (09:11)
[2016-12-07] MEDS ORDERED: HYDROmorphone 1 MG/ML 1 ML SYRINGE IVP STA (09:11)
[2016-12-07] MEDS ORDERED: ONDANSETRON 4 MG/2 ML VIAL IVP STA (09:11)
--- NOTE | 2016-12-07 09:29 | ED ---
General Adult HPI <Ajay Coughlin - Last Filed: 12/07/16 11:46> - General Source: patient, RN notes reviewed Mode of arrival: wheelchair Limitations: no limitations <Silvestre Goins - Last Filed: 12/07/16 11:58> - General Chief complaint: Abdominal Pain Stated complaint: ABDOMINAL PAIN RADIATING TO BACK, NAUSEA, VOMITING Time Seen by Provider: 12/07/16 09:07 - History of Present Illness Initial comments: Patient 56-year-old male significant past medical history for pancreatitis, who presents emergency room today with chief complaint of right-sided abdominal pain that started last night. Admits to symptoms of nausea vomiting. Denies any signs of blood. States that symptoms are consistent with pancreatitis that he's had in the past. Patient denies any recent fever, chills, shortness of breath, chest pain, back pain, numbness or tingling, dysuria or hematuria, constipation or diarrhea, headaches or visual changes, or any other complaints. (Silvestre Goins) - Related Data Home Medications Medication Instructions Recorded Confirmed Bisoprolol-Hctz 10-6.25 mg [Ziac 1 tab PO DAILY 11/23/15 07/15/16 10-6.25 MG] Lisinopril [Zestril] 10 mg PO DAILY 11/23/15 07/15/16 Previous Rx's Medication Instructions Recorded Lipase/Protease/Amylase [Jordan Dozier 1 each PO AC-TID #90 capsule. 07/19/16 5,000 Units Capsule] Lipase/Protease/Amylase [Jordan Dozier 1 each PO AC-TID #90 capsule. Mei 5,000 Units Capsule] Pantoprazole [Protonix] 40 mg PO AC-BRKFST #30 tablet. 07/19/16 Allergies Allergy/AdvReac Type Severity Reaction Status Date / Time No Known Allergies Allergy Verified 12/07/16 09:05 Review of Systems ROS Other: All systems not noted in ROS Statement are negative. <Ajay Coughlin - Last Filed: 12/07/16 11:46> ROS Other: All systems not noted in ROS Statement are negative. <Silvestre Goins - Last Filed: 12/07/16 11:58> ROS Statement: Those systems with pertinent positive or pertinent negative responses have been documented in the HPI. Past Medical History Past Medical History: Hypertension Additional Past Medical History / Comment(s): .pancreatitis History of Any Multi-Drug Resistant Organisms: None Reported Past Surgical History: No Surgical Hx Reported Past Anesthesia/Blood Transfusion Reactions: No Reported Reaction Past Psychological History: No Psychological Hx Reported Smoking Status: Never smoker Past Alcohol Use History: Occasional Past Drug Use History: None Reported - Past Family History Mother Family Medical History: Hypertension Father Family Medical History: CVA/TIA <Silvestre Goins - Last Filed: 12/07/16 11:58> General Exam <Ajay Coughlin - Last Filed: 12/07/16 11:46> Limitations: no limitations <Silvestre Goins - Last Filed: 12/07/16 11:58> - General Exam Comments Initial Comments: General: The patient is awake and alert, in no distress, and does not appear acutely ill. Eye: Pupils are equal, round and reactive to light, extra-ocular movements are intact. No nystagmus. There is normal conjunctiva bilaterally. No signs of icterus. Ears, nose, mouth and throat: There are moist mucous membranes and no oral lesions. Neck: The neck is supple, there is no tenderness or JVD. Cardiovascular: There is a regular rate and rhythm. No murmur, rub or gallop is appreciated. Respiratory: Lungs are clear to auscultation, respirations are non-labored, breath sounds are equal. No wheezes, stridor, rales, or rhonchi. Gastrointestinal: Normal appearance abdomen. Normal bowel sounds. Soft on palpation. Patient does have tenderness right upper quadrant. Mild epigastric. No rebound tenderness. No Guarding. Musculoskeletal: Normal ROM, no tenderness. Strength 5/5. Sensation intact. Pulses equal bilaterally 2+. Neurological: A&O x 3. CN II-XII intact, There are no obvious motor or sensory deficits. Coordination appears grossly intact. Speech is normal. Skin: Skin is warm and dry and no rashes or lesions are noted. Psychiatric: Cooperative, appropriate mood & affect, normal judgment. (Silvestre Goins) Course <Ajay Coughlin - Last Filed: 12/07/16 11:46> <Silvestre Goins - Last Filed: 12/07/16 11:58> Vital Signs 12/07/16 12/07/16 12/07/16 09:01 10:05 11:29 Temperature 97.4 F L Pulse Rate 80 83 82 Respiratory 18 18 18 Rate Blood Pressure 141/65 107/56 142/65 O2 Sat by Pulse 99 96 95 Oximetry - Reevaluation(s) Reevaluation #1: 12/07/16 11:47 I did personally do a [id number] evaluation the patient did discuss findings with him he will be admitted for treatment of acute pancreatitis. Patient will be admitted to the hospitalist group covering Dr. Ramos. (Ajay Coughlin) Medical Decision Making - Lab Data Result diagrams: 12/07/16 09:17 12/07/16 09:17 <Ajay Coughlin - Last Filed: 12/07/16 11:46> - Lab Data Result diagrams: 12/07/16 09:17 12/07/16 09:17 <Silvestre Goins - Last Filed: 12/07/16 11:58> - Medical Decision Making Patient reexamined at this time shows no signs of distress. He is resting comfortably. Does admit to improve after pain medication given here in emergency room. Assessment pain is beginning to come back. Patient's labs been reviewed shows sodium 131. Patient does have elevated amylase lipase. Amylase greater than 2000. Lipase greater than 20,000. Patient's ultrasound of the right upper quadrant reviewed and shows 1. Heterogeneity of the liver could reflect fatty infiltration or underlying hepatocellular disease. Some perihepatic ascites is redemonstrated. 2. Increasing moderate extrahepatic biliary dilation without suspicious intrahepatic biliary dilation 3. No shattering mobile gallstones or convincing evidence for acute cholecystitis. Case was discussed with attending physician Dr. Coughlin who did discuss case with admitting physician Dr. Hill who admit for Dr. Ramos. Patient will be admitted with consult to GI. Continue on oral hydration and pain medication. (Silvestre Goins) - Lab Data Lab Results 12/07/16 12/07/16 12/07/16 Range/Units 09:17 09: 09: WBC 8.5 (3.8-10.6) k/uL RBC 3.25 L (4.30-5.90) m/uL Hgb 12.2 L (13.0-17.5) gm/dL Hct 36.3 L (39.0-53.0) % MCV 111.8 H (80.0-100.0) fL MCH 37.5 H (25.0-35.0) pg MCHC 33.5 (31.0-37.0) g/dL RDW 14.6 (11.5-15.5) % Plt Count 65 L (150-450) k/uL Neutrophils % 92 % Lymphocytes % 2 % Monocytes % 4 % Eosinophils % 1 % Basophils % 0 % Neutrophils # 7.8 H (1.3-7.7) k/uL Lymphocytes # 0.2 L (1.0-4.8) k/uL Monocytes # 0.3 (0-1.0) k/uL Eosinophils # 0.0 (0-0.7) k/uL Basophils # 0.0 (0-0.2) k/uL Polychromasia Present Macrocytosis Marked PT 18.0 H (9.0-12.0) sec INR 1.9 H (<1.2) APTT 29.0 (22.0-30.0) sec Sodium 131 L (137-145) mmol/L Potassium 3.8 (3.5-5.1) mmol/L Chloride 100 (98-107) mmol/L Carbon Dioxide 22 (22-30) mmol/L Anion Gap 9 mmol/L BUN 6 L (9-20) mg/dL Creatinine 0.65 L (0.66-1.25) mg/dL Est GFR (MDRD) Af Amer >60 (>60 ml/min/1.73 sqM) Est GFR (MDRD) Non-Af >60 (>60 ml/min/1.73 sqM) Glucose 92 (74-99) mg/dL Calcium 8.3 L (8.4-10.2) mg/dL Total Bilirubin 6.1 H (0.2-1.3) mg/dL AST 114 H (17-59) U/L ALT 47 (21-72) U/L Alkaline Phosphatase 152 H (38-126) U/L Total Protein 7.9 (6.3-8.2) g/dL Albumin 3.1 L (3.5-5.0) g/dL Amylase 2004 H* (30-110) U/L Lipase >42836 H (23-300) U/L Urine Color Urine Appearance (Clear) Urine pH (5.0-8.0) Ur Specific [place] (1.001-1.035) Urine Protein (Negative) Urine Glucose (UA) (Negative) Urine Ketones (Negative) Urine Blood (Negative) Urine Nitrite (Negative) Urine Bilirubin (Negative) Urine Urobilinogen (<2.0) mg/dL Ur Leukocyte Esterase (Negative) 12/07/16 Range/Units 11:25 WBC (3.8-10.6) k/uL RBC (4.30-5.90) m/uL Hgb (13.0-17.5) gm/dL Hct (39.0-53.0) % MCV (80.0-100.0) fL MCH (25.0-35.0) pg MCHC (31.0-37.0) g/dL RDW (11.5-15.5) % Plt Count (150-450) k/uL Neutrophils % % Lymphocytes % % Monocytes % % Eosinophils % % Basophils % % Neutrophils # (1.3-7.7) k/uL Lymphocytes # (1.0-4.8) k/uL Monocytes # (0-1.0) k/uL Eosinophils # (0-0.7) k/uL Basophils # (0-0.2) k/uL Polychromasia Macrocytosis PT (9.0-12.0) sec INR (<1.2) APTT (22.0-30.0) sec Sodium (137-145) mmol/L Potassium (3.5-5.1) mmol/L Chloride (98-107) mmol/L Carbon Dioxide (22-30) mmol/L Anion Gap mmol/L BUN (9-20) mg/dL Creatinine (0.66-1.25) mg/dL Est GFR (MDRD) Af Amer (>60 ml/min/1.73 sqM) Est GFR (MDRD) Non-Af (>60 ml/min/1.73 sqM) Glucose (74-99) mg/dL Calcium (8.4-10.2) mg/dL Total Bilirubin (0.2-1.3) mg/dL AST (17-59) U/L ALT (21-72) U/L Alkaline Phosphatase (38-126) U/L Total Protein (6.3-8.2) g/dL Albumin (3.5-5.0) g/dL Amylase (30-110) U/L Lipase (23-300) U/L Urine Color [place] Urine Appearance Clear (Clear) Urine pH 8.0 (5.0-8.0) Ur Specific [place] 1.013 (1.001-1.035) Urine Protein Trace H (Negative) Urine Glucose (UA) Negative (Negative) Urine Ketones Negative (Negative) Urine Blood Negative (Negative) Urine Nitrite Negative (Negative) Urine Bilirubin 2+ H (Negative) Urine Urobilinogen 6.0 (<2.0) mg/dL Ur Leukocyte Esterase Negative (Negative) Disposition Decision Time: 11:40 <Ajay Coughlin - Last Filed: 12/07/16 11:46> Time of Disposition: 11:58 <Silvestre Goins - Last Filed: 12/07/16 11:58> Clinical Impression: Acute pancreatitis Disposition: ADMITTED IP TO THIS HOSP Condition: Good Referrals: Noman Ramos MD [Primary Care Provider] - 1-2 days
[2016-12-07 09:35] LABS: Basophils % (A) 0 %; CH 35.8; CHCM 32.2; Eosinophils % (A) 1 %; HCT 36.3 % (39.0-53.0); HDW 2.55; HGB 12.2 gm/dL (13.0-17.5); Luc # (Auto) 0.12; Luc % (Auto) 1; Lymphocytes # (A) 0.2 k/uL (1.0-4.8); Lymphocytes % (A) 2 %; MCH 37.5 pg (25.0-35.0); MCHC 33.5 g/dL (31.0-37.0); MCV 111.8 fL (80.0-100.0); Macrocytosis Marked; Mean Platelet Volume 7.9; Monocytes # (A) 0.3 k/uL (0-1.0); Monocytes % (A) 4 %; Neutrophils # (A) 7.8 k/uL (1.3-7.7); Neutrophils % (A) 92 %; RBC 3.25 m/uL (4.30-5.90); RDW 14.6 % (11.5-15.5); WBC 8.5 k/uL (3.8-10.6); WBC (Perox) 8.56
[2016-12-07 09:43] LABS: INR 1.9 (<1.2)
[2016-12-07 09:52] LABS: ALT 47 U/L (21-72); AST 114 U/L (17-59); Alkaline Phosphatase 152 U/L (38-126); Anion Gap 9 mmol/L; Blood Urea Nitrogen 6 mg/dL (9-20); Calcium 8.3 mg/dL (8.4-10.2); Carbon Dioxide 22 mmol/L (22-30); Chloride 100 mmol/L (98-107); Glucose 92 mg/dL (74-99); Non-African American GFR(MDRD) >60 (>60 ml/min/1.73 sqM); Potassium 3.8 mmol/L (3.5-5.1); Sodium 131 mmol/L (137-145); Total Bilirubin 6.1 mg/dL (0.2-1.3); Total Protein 7.9 g/dL (6.3-8.2)
[2016-12-07 09:58] LABS: Polychromasia Present
[2016-12-07 09:59] LABS: Amylase 2004 U/L (30-110)
--- NOTE | 2016-12-07 11:41 | US ---
EXAMINATION TYPE: US abdomen limited DATE OF EXAM: 12/07/2016 COMPARISON: CT abdomen July 15, 2016 CLINICAL HISTORY: Pain. Abdomen pain and N/V x 2 days EXAM MEASUREMENTS: Liver Length: 20.5 cm Gallbladder Wall: 0.3 cm CBD: 1.3 cm Right Kidney: 11.7 x 4.7 x 5.9 cm Pancreas: obscured by overlying midline bowel gas Liver: enlarged at 20.5cm, course echogenicity Gallbladder: 0.8cm echogenic focus, low level echoes within dependent portion of gallbladder Evidence for sonographic Lemon's sign: no CBD: dilated at 1.3cm Right Kidney: visualized portions wnl, inferior pole limited by overlying bowel gas Initial images show small amount of fluid near fausto hepatis. Pancreas is not well seen on images sukumar ed. Visualized liver is heterogeneous in appearance without intrahepatic ductal dilatation. Evaluatio n for focal masses is suboptimal due to the heterogeneity. 8mm nonmobile nonshadowing focus in gallbl adder favors polyp. Gallbladder has distended margins. There is no significant increased surrounding fluid or wall thickening. Sonographic Lemon sign is negative. Common bile duct is moderately dilated at 13 mm and more prominent versus prior CT. IMPRESSION: 1. Heterogeneity of liver could reflect fatty infiltration or underlying hepatocellular disease. Clin ical and liver lab correlation advised. Some perihepatic ascites is redemonstrated. 2. Increasing moderate extrahepatic biliary dilatation without suspicious intrahepatic biliary dilata tion. Need to further investigate by ERCP should be based on clinical and lab correlation. 3. No shadowing mobile gallstones or convincing ultrasound evidence for acute cholecystitis
[2016-12-07 11:51] LABS: Appearance,Urine Clear (Clear); Bilirubin,Urine 2+ (Negative); Glucose,Urine (UA) Negative (Negative); Ketones,Urine Negative (Negative); Leukocyte Esterase,Urine Negative (Negative); Nitrite,Urine Negative (Negative); Protein,Urine Trace (Negative); Specific Gravity,Urine 1.013 (1.001-1.035); UA Billing (MACRO vs. MICRO) CHEM
[2016-12-07] MEDS ORDERED: ONDANSETRON 4 MG/2 ML VIAL IVP PRN (11:58)
[2016-12-07] MEDS ORDERED: NALOXONE 0.4 MG/ML 1 ML VIAL IV PRN (11:58)
[2016-12-07] MEDS ORDERED: LORazepam 2 MG/ML SYRINGE IV PRN (11:58)
[2016-12-07] MEDS: HYDROmorphone 1 MG/ML 1 ML SYRINGE IV PRN ×3 (12:09→20:16)
[2016-12-07] MEDS ORDERED: ALPRAZolam 0.25 MG TAB PO PRN (15:24)
[2016-12-07] MEDS ORDERED: TEMAZEPAM 15 MG CAP PO PRN (15:24)
[2016-12-07 15:53] VITALS: BMI 33.5
--- NOTE | 2016-12-07 15:53 | XR ---
EXAMINATION TYPE: XR chest 1V portable DATE OF EXAM: 12/07/2016 CLINICAL HISTORY: CHF per order. Upper abdominal and back pain. TECHNIQUE: Single AP portable upright view of the chest is obtained. COMPARISON: Chest x-ray from July 17, 2016 FINDINGS: There is diminished inspiration on current study. There is new mild cardiomegaly. There is perhaps new mild central vascular congestion. There is patchy left greater than right bibasilar atel ectasis and/or infiltrate. No large pleural effusion or pneumothorax is present. Osseous structures a re intact. IMPRESSION: Cannot exclude CHF exacerbation as there is new mild cardiomegaly with mild central vascu lar congestion though findings may be exaggerated by poor inspiration. In addition there is patchy le ft greater than right bibasilar atelectasis and/or infiltrate noted. Progress two-view chest x-ray ad vised.
[2016-12-07] MEDS: IOHEXOL 350 MG/ML 25 ML BOTTLE (ORAL USE) PO PRN ×2 (16:03→17:11)
[2016-12-07] MEDS: MEROPENEM 2 GM in SODIUM CHLORIDE 0.9% 100 ML IVPB SCH ×2 (16:42→23:32)
[2016-12-07] MEDS: ONDANSETRON 4 MG/2 ML VIAL IVP PRN ×2 (16:48→21:41)
[2016-12-07] MEDS: PANTOPRAZOLE 40 MG/10 ML VIAL IVP SCH (20:16)
[2016-12-07] MEDS: HEPARIN SODIUM,PORCINE 5,000 UNIT/ML 1 ML VIAL SQ SCH (20:16)
--- NOTE | 2016-12-07 20:58 | CT ---
EXAMINATION TYPE: CT abdomen pelvis wo con DATE OF EXAM: 12/07/2016 HISTORY: Generalized abdominal pain per patient. Pancreatitis per order. CT DLP: 1161 mGycm. Automated Exposure Control for Dose Reduction was Utilized. TECHNIQUE: CT scan of the abdomen and pelvis is performed with oral but without IV contrast. COMPARISON: CT abdomen July 15, 2016. Limited abdominal ultrasound earlier today FINDINGS: Within the limitations of a non-contrast study, the following observations are made. LUNG BASES: There is persistent cardiomegaly and tiny bilateral pleural effusions no significant ho ge from prior CT. Liver: Liver is heterogeneously hypodense with lobulated peripheral contour suggesting fatty infiltra tion. Underlying cirrhosis not excluded. There is perihepatic ascites anteriorly that is slightly mor e prominent versus prior. Gallbladder has distended margins. Dependent densities consistent with smal l stones or gallbladder sludge. There is stable mild extra hepatic biliary dilatation without signifi cant intrahepatic biliary dilatation. PANCREAS: There is ill-defined fluid and fat stranding in the upper abdomen centered at level of panc reas with fluid layering inferiorly into Gerota's fascia. This is more prominent than prior CT. Promi nent but subcentimeter scattered lymph nodes are noted. No well-formed fluid collection is seen. Panc reas overall is diffusely prominent in size similar to prior. SPLEEN: There is redemonstration of splenomegaly measuring 14.7 cm on long axis on axial image 34. ADRENALS: No significant abnormality is seen. KIDNEYS: No significant abnormality is seen. BOWEL: Oral contrast only reaches distal jejunal loops in the left abdomen. There is mild prominence of stomach and duodenal sweep. There is prominence and mild dilatation of jejunal loops in the left a bdomen. Distal bowel shows no suspicious dilatation. GENITAL ORGANS: No gross abnormality seen. LYMPH NODES: No greater than 1cm abdominal or pelvic lymph nodes are appreciated. OSSEOUS STRUCTURES: No significant abnormality is seen. OTHER: There is moderate amount of free fluid in the pelvis. There is redemonstration of left ureter umbilical hernia containing short segment of bowel without gallegos spicious dilatation. There is moderate to large left inguinal hernia containing fluid. IMPRESSION: 1. CT findings are consistent with acute pancreatitis as detailed above. IV contrast was not given to evaluate for necrosis. No well-formed fluid collection is present. Degree of inflammatory change is more prominent than prior CT in July. 2. Cirrhotic liver versus fatty infiltration. Splenomegaly and surrounding ascites is noted increasin g suspicion for former. Clinical and lab correlation advised. 3. There is mild extrahepatic biliary dilatation that remains present as significantly changed from p rior CT without abnormal intrahepatic biliary dilatation. No significant change from recent CT is see n as was suspected on recent ultrasound. 4. Suspect pancreatitis is causing reactive ileus and/or partial small bowel obstruction. No complete bowel obstruction is felt present.
[2016-12-07] MEDS: SODIUM CHLORIDE 0.9% 1,000 ML IV SCH ×2 (21:14→21:49)
[2016-12-08] MEDS: SODIUM CHLORIDE 0.9% 1,000 ML IV SCH ×2 (03:55→20:30)
[2016-12-08] MEDS: HYDROmorphone 1 MG/ML 1 ML SYRINGE IV PRN ×5 (03:55→19:20)
[2016-12-08] MEDS: MEROPENEM 2 GM in SODIUM CHLORIDE 0.9% 100 ML IVPB SCH ×2 (07:25→15:45)
[2016-12-08] MEDS: HEPARIN SODIUM,PORCINE 5,000 UNIT/ML 1 ML VIAL SQ SCH (07:25)
[2016-12-08] MEDS: PANTOPRAZOLE 40 MG/10 ML VIAL IVP SCH ×2 (07:25→20:22)
[2016-12-08 08:19] LABS: Basophils % (A) 0 %; CH 35.5; CHCM 31.9; Eosinophils # (A) 0.1 k/uL (0-0.7); Eosinophils % (A) 1 %; HCT 31.7 % (39.0-53.0); HDW 2.53; HGB 10.5 gm/dL (13.0-17.5); Luc % (Auto) 4; Lymphocytes # (A) 0.5 k/uL (1.0-4.8); Lymphocytes % (A) 6 %; MCH 37.1 pg (25.0-35.0); MCHC 33.2 g/dL (31.0-37.0); MCV 111.8 fL (80.0-100.0); Macrocytosis Marked; Mean Platelet Volume 8.4; Monocytes # (A) 0.6 k/uL (0-1.0); Monocytes % (A) 7 %; Neutrophils # (A) 6.6 k/uL (1.3-7.7); Neutrophils % (A) 82 %; RBC 2.84 m/uL (4.30-5.90); RDW 14.5 % (11.5-15.5); WBC (Perox) 8.12
[2016-12-08 08:30] LABS: ALT 45 U/L (21-72); AST 89 U/L (17-59); Alkaline Phosphatase 96 U/L (38-126); Anion Gap 6 mmol/L; Blood Urea Nitrogen 11 mg/dL (9-20); Calcium 7.3 mg/dL (8.4-10.2); Carbon Dioxide 22 mmol/L (22-30); Chloride 101 mmol/L (98-107); Glucose 88 mg/dL (74-99); Non-African American GFR(MDRD) >60 (>60 ml/min/1.73 sqM); Potassium 4.1 mmol/L (3.5-5.1); Sodium 129 mmol/L (137-145); Total Bilirubin 7.4 mg/dL (0.2-1.3); Total Protein 6.7 g/dL (6.3-8.2)
[2016-12-08 08:34] LABS: Amylase 462 U/L (30-110)
[2016-12-08] MEDS: BISOPROLOL-HCTZ 10-6.25 MG 1 EACH TAB PO SCH (08:47)
[2016-12-08] MEDS: LISINOPRIL 10 MG TAB PO SCH (08:47)
--- NOTE | 2016-12-08 09:48 | HP ---
HISTORY AND PHYSICAL DATE OF SERVICE: 12/07/2016. I am covering for Dr. Ramos. CHIEF COMPLAINT: Abdominal pain. HISTORY OF PRESENT ILLNESS: This 56-year-old gentleman with past medical history of hypertension, history of pancreatitis being followed by Dr. Ramos in the outpatient setting has been complaining of abdominal pain. The patient was complaining of right-sided upper abdominal pain last night. The patient also had some nausea and vomiting. The pain also radiated to the back. The patient came to [facility] and had features of acute pancreatitis with increased amylase and lipase. Patient admitted for further evaluation treatment. Abdominal pelvis CT scan was also ordered which showed acute pancreatitis and also probably cirrhotic liver with fatty infiltration, splenomegaly and some ascites also. Mild extrahepatic biliary dilatation was also noted. Reactive ileus was also noted. The abdominal ultrasound done earlier showed no evidence of significant gallstones at this time. There is no history of fever, rigors. No history of headache, loss of consciousness, seizures. PAST MEDICAL HISTORY: History of hypertension, history of pancreatitis. MEDICATIONS PRIOR TO ADMISSION: 1. Zestril 10 mg daily. ALLERGIES: None. FAMILY HISTORY: History of hypertension. SOCIAL HISTORY: Occasional alcohol intake. No history of smoking. REVIEW OF SYSTEM: ENT: No diminished hearing or vision. CARDIOVASCULAR: No angina. RESPIRATORY: No cough or hemoptysis. GI: As mentioned earlier. : No dysuria. NERVOUS SYSTEM: No numbness or weakness. ALLERGY/IMMUNOLOGY: No asthma or hayfever. MUSCULOSKELETAL: As mentioned earlier. HEMATOLOGY/ONCOLOGY: No history of anemia. ENDOCRINE: No history of diabetes or hypothyroidism. CONSTITUTIONAL: As mentioned earlier. DERMATOLOGY: Negative. RHEUMATOLOGY: Negative. PSYCHIATRY: As mentioned earlier. PHYSICAL EXAM: Patient is alert, oriented x3. Pulse is 74, blood pressure 144/76, respiration 18, temperature 98 degrees, pulse ox 93% on room air. HEENT: Conjunctivae normal. Oral mucosa moist. NECK: No jugular venous distention. No carotid bruit. No thyroid enlargement. CARDIOVASCULAR: S1, S2. RESPIRATORY: Breath sounds are diminished in the bases. No rhonchi no crackles. ABDOMEN: Soft. Mild diffuse distention present. There is significant tenderness in the right upper quadrant. No guarding. No rigidity. No mass palpable. Bowel sounds diminished. No ascites. No hepatosplenomegaly clinically. LEGS: No edema, no swelling. NERVOUS SYSTEM: Higher function as mentioned earlier. Cranial nerves II through XII grossly intact. Moves all four limbs. No focal motor sensory deficits. LYMPHATICS: No lymphadenopathy in the neck, axillae or groin. SKIN: No rash, ulcer or bleeding. LABS: WBC 8.3, hemoglobin 12.3, MCV 111.8, sodium 131, INR 1.9. Total bilirubin 6.1. Amylase 2004, lipase is more than 20,000. ASSESSMENT: 1. Acute severe pancreatitis. 2. History of previous pancreatitis. 3. Possible cirrhosis of the liver. 4. Hyperbilirubinemia. 5. Anemia. 6. Recent cerebrovascular accident. 7. Hypertension. RECOMMENDATIONS AND DISCUSSION: In this 56-year-old gentleman who presents with multiple complex medical issues. We will monitor patient closely. Continue the current medications. Continue symptomatic treatment. I recommend a gastroenterology and surgical evaluations. I recommended pain medications. Repeat labs, empiric antibiotics. Otherwise clear liquids as tolerated. Guarded prognosis because of multiple complex medical issues. Further recommendations to follow. A copy of dictation forwarded to Dr. Ramos who is the primary physician. MMODL / IJN: [id number] / MTDGregory
--- NOTE | 2016-12-08 12:29 | P.GSCN ---
History of Present Illness Consult date: 12/08/16 Reason for Consult: Pancreatitis. History of present illness: This 56-year-old gentleman who began feeling pain in his right upper quadrant radiating around to his back 2 nights ago. He previously has had an episode of pancreatitis back in July. He denies any nausea vomiting. Denies any fevers chills. He states he still has some abdominal pain however it's improved now. He denies any recent alcohol use. He says he drinks on occasion. No other complaints at this time. Review of Systems 14 point review systems is obtained negative other than the noted in history of present illness. Past Medical History Past Medical History: Hypertension Additional Past Medical History / Comment(s): pancreatitis History of Any Multi-Drug Resistant Organisms: None Reported Past Surgical History: No Surgical Hx Reported Past Anesthesia/Blood Transfusion Reactions: No Reported Reaction Past Psychological History: No Psychological Hx Reported Smoking Status: Never smoker Past Alcohol Use History: Occasional Additional Past Alcohol Use History / Comment(s): drinks 3 beers 2-3 times a week Past Drug Use History: None Reported - Past Family History Mother Family Medical History: Hypertension Father Family Medical History: CVA/TIA Medications and Allergies Home Medications Medication Instructions Recorded Confirmed Type Bisoprolol-Hctz 10-6.25 mg [Ziac 1 tab PO DAILY 11/23/15 12/07/16 History 10-6.25 MG] Lisinopril [Zestril] 10 mg PO DAILY 11/23/15 12/07/16 History Allergies Allergy/AdvReac Type Severity Reaction Status Date / Time No Known Allergies Allergy Verified 12/07/16 12:29 Surgical - Exam Osteopathic Statement: *. No significant issues noted on an osteopathic structural exam other than those noted in the History and Physical/Consult. Vital Signs Temp Pulse Resp BP Pulse Ox 97.4 F L 80 18 141/65 99 12/07/16 09:01 12/07/16 09:01 12/07/16 09:01 12/07/16 09:01 12/07/16 09:01 - General well developed, well nourished - Eyes Non-icteric PERRL, normal ocular movement - Neck no masses - Respiratory normal expansion, normal respiratory effort - Cardiovascular Rhythm: regular - Abdomen No rebound rigidity or guarding. Negative Lemon sign Abdomen: soft, non tender - Psychiatric oriented to time, oriented to person, oriented to place Results - Labs 12/08/16 06:54 12/08/16 06:54 Abnormal Lab Results - Last 24 Hours (Table) 12/08/16 12/08/16 Range/Units 06:54 06:54 RBC 2.84 L (4.30-5.90) m/uL Hgb 10.5 L (13.0-17.5) gm/dL Hct 31.7 L (39.0-53.0) % MCV 111.8 H (80.0-100.0) fL MCH 37.1 H (25.0-35.0) pg Plt Count 45 L* (150-450) k/uL Lymphocytes # 0.5 L (1.0-4.8) k/uL Sodium 129 L (137-145) mmol/L Calcium 7.3 L (8.4-10.2) mg/dL Total Bilirubin 7.4 H (0.2-1.3) mg/dL AST 89 H (17-59) U/L Albumin 2.5 L (3.5-5.0) g/dL Amylase 462 H* (30-110) U/L Diabetes panel 12/08/16 Range/Units 06:54 Sodium 129 L (137-145) mmol/L Potassium 4.1 (3.5-5.1) mmol/L Chloride 101 (98-107) mmol/L Carbon Dioxide 22 (22-30) mmol/L BUN 11 (9-20) mg/dL Creatinine 0.67 (0.66-1.25) mg/dL Glucose 88 (74-99) mg/dL Calcium 7.3 L (8.4-10.2) mg/dL AST 89 H (17-59) U/L ALT 45 (21-72) U/L Alkaline Phosphatase 96 (38-126) U/L Total Protein 6.7 (6.3-8.2) g/dL Albumin 2.5 L (3.5-5.0) g/dL Calcium panel 12/08/16 Range/Units 06:54 Calcium 7.3 L (8.4-10.2) mg/dL Albumin 2.5 L (3.5-5.0) g/dL Pituitary panel 12/08/16 Range/Units 06:54 Sodium 129 L (137-145) mmol/L Potassium 4.1 (3.5-5.1) mmol/L Chloride 101 (98-107) mmol/L Carbon Dioxide 22 (22-30) mmol/L BUN 11 (9-20) mg/dL Creatinine 0.67 (0.66-1.25) mg/dL Glucose 88 (74-99) mg/dL Calcium 7.3 L (8.4-10.2) mg/dL Adrenal panel 12/08/16 Range/Units 06:54 Sodium 129 L (137-145) mmol/L Potassium 4.1 (3.5-5.1) mmol/L Chloride 101 (98-107) mmol/L Carbon Dioxide 22 (22-30) mmol/L BUN 11 (9-20) mg/dL Creatinine 0.67 (0.66-1.25) mg/dL Glucose 88 (74-99) mg/dL Calcium 7.3 L (8.4-10.2) mg/dL Total Bilirubin 7.4 H (0.2-1.3) mg/dL AST 89 H (17-59) U/L ALT 45 (21-72) U/L Alkaline Phosphatase 96 (38-126) U/L Total Protein 6.7 (6.3-8.2) g/dL Albumin 2.5 L (3.5-5.0) g/dL - Imaging Comments: All imaging studies reviewed. Assessment and Plan (1) Abdominal pain Status: Acute (2) Acute pancreatitis Status: Acute (3) Jaundice Status: Acute Plan: Imaging studies were read as gallbladder polyp however clinically the patient has a dilated common bile duct with hyperbilirubinemia which was increased today indicating he likely has choledocholithiasis with concurrent gallstone pancreatitis. GI is aware of these findings and will await recommendations on possible ERCP if the patient's bilirubins do not improve. Patient will likely need cholecystectomy upon resolution of pancreatitis and hyperbilirubinemia. .
--- NOTE | 2016-12-08 15:06 | CONS ---
CONSULTATION DATE OF DICTATION: December 08, 2016 REASON FOR CONSULTATION: Acute pancreatitis. HISTORY OF PRESENT ILLNESS: The patient is a 56-year-old, pleasant white male, with a acute recurrent pancreatitis being this being his third episode admitted to hospital with acute onset of severe epigastric pain that started around on Friday. The pain progressively got worse. He was admitted to the hospital and was noted to have significant elevation of amylase and lipase consistent with acute pancreatitis. The patient was having symptoms for the last 3 days duration. This morning he says the pain has significantly improved. He had multiple episodes of nausea and vomiting. He was admitted in November of 2015 with an acute pancreatitis and had another episode in July of 2016 with a 2nd episode of pancreatitis. During this hospitalization, he had a CT of the abdomen and pelvis done that showed possible cirrhotic appearing liver with fatty infiltration, splenomegaly, sinusitis and also inflammatory changes in the pancreatic. Also there was mention of some extrahepatic biliary ductal dilatation seen. Ultrasound of the abdomen did not show any evidence of gallstones. PAST MEDICAL HISTORY: Significant for acute recurrent pancreatitis. History of hypertension. MEDICATIONS: Medications at home: 1. Zestril. 2. Diuretic. SOCIAL HISTORY: Drinks alcohol about 4-5 drinks a week. No smoking. FAMILY HISTORY: Unremarkable. REVIEW OF SYSTEMS: Cardiopulmonary is no chest pain, shortness of breath. Genitourinary: No dysuria or hematuria. Musculoskeletal: Unremarkable. Skin: Unremarkable. Endocrine: Unremarkable. Psychiatric: Unremarkable. Neurological: Unremarkable. ENT/vision: Not remarkable. Constitutional: No recent weight loss. No fevers, chills or night sweats. PHYSICAL EXAMINATION: He appears comfortable in no apparent distress. VITAL SIGNS: Stable. Blood pressure is 144/76, pulse is 74, temperature 98. HEENT examination unremarkable. Conjunctivae pink. Sclerae anicteric. Oral cavity no lesions. Neck no jugular venous distention or lymph node enlargement. Chest was clear to auscultation. HEART: Regular rate and rhythm. ABDOMEN: Soft, slightly distended. Some tenderness in the epigastric area. Bowel sounds are positive. No organomegaly. EXTREMITIES: No pedal edema. SKIN: No rashes. NEUROLOGIC: Alert and oriented times three. No focal deficits. LAB: WBC 8.5, hemoglobin 12.2, MCV 111, platelets 65,000. PT 18. INR 1.9. Total bilirubin 6.1, AST 1114, ALT 47, alkaline phosphatase 152, amylase is 2000, lipases 20,000. Today amylase is down to 462. T-bilirubin is up to 7.4, AST 89, ALT 45. IMPRESSION: 1. Acute recurrent pancreatitis. This being the third episode. The first episode was in November of 2015. Second episode in July of 2016 and this is the 3rd episode. The patient presents with severe epigastric pain and noted to have an elevated amylase and lipase consistent with acute pancreatitis. Ultrasound did not show any evidence of gallstones and a CT of the abdomen did show possible cirrhotic appearing liver with changes consistent with acute pancreatitis. The biochemical pictures is very consistent with alcohol related acute recurrent pancreatitis with macrocytic anemia and thrombocytopenia as well as coagulopathy. Also his serum AST is more than ALT and all of these biochemical parameters are very consistent with alcohol-related liver disease/acute recurrent pancreatitis. However on questioning, the patient states that he only drinks 5-6 beers a week. It is unclear at this time if we are dealing with other causes of pancreatitis. During his previous hospitalization, I did investigate him for hypertriglyceridemia as well as autoimmune pancreatitis and all workup at that time was negative. 2. Thrombocytopenia probably related to chronic liver disease/cirrhosis of the liver. 3. Mild coagulopathy probably related to underlying liver disease. RECOMMENDATIONS: 1. Continue symptomatic and supportive care. 2. Continue IV proton pump inhibitor. 3. Will start on clear liquid diet today. 4. I suggested that we proceed with an MRCP to evaluate for any CBD pathology before considering endoscopy intervention. The elevated bilirubin appears to be unlikely related to biliary obstruction at the present time and most represents underlying liver disease. Thank you for the consultation. MMNORAHL / IJN: [id number] /
[2016-12-08] MEDS: ONDANSETRON 4 MG/2 ML VIAL IVP PRN (19:21)
[2016-12-09] MEDS: HYDROmorphone 1 MG/ML 1 ML SYRINGE IV PRN ×5 (00:11→22:26)
[2016-12-09] MEDS: MEROPENEM 2 GM in SODIUM CHLORIDE 0.9% 100 ML IVPB SCH ×3 (00:11→15:05)
[2016-12-09] MEDS: ONDANSETRON 4 MG/2 ML VIAL IVP PRN ×4 (00:12→22:34)
--- NOTE | 2016-12-09 02:36 | P.PN ---
Subjective Principal diagnosis: gallstone pancreatitis/choledocholithiasis Patient doing well today, abdominal pain improved. No complaints. Objective - Vital Signs Vital signs: Vital Signs Temp 97.6 F 12/08/16 20:20 Pulse 66 12/08/16 20:20 Resp 16 12/08/16 21:00 BP 116/68 12/08/16 20:20 Pulse Ox 94 L 12/08/16 20:20 Intake & Output 12/08/16 12/08/16 12/09/16 06:59 18:59 06:59 Intake Total 3790 700 400 Balance 3790 700 400 Weight 108.862 kg Intake: Intake, IV Titration 3200 700 Amount Meropenem 2 gm In Sodium 100 100 Chloride 0.9% 100 ml @ 200 mls/hr IVPB Q8HR BRIDGETT Rx#:[id number] Sodium Chloride 0.9% 1, 600 000 ml @ 100 mls/hr IV . Q10H STA Rx#:[id number] Sodium Chloride 0.9% 1, 3100 000 ml @ 200 mls/hr IV . Q5H BRIDGETT Rx#:[id number] Oral 590 400 Other: Voiding Method Toilet Toilet Toilet # Voids 2 2 1 - Constitutional General appearance: Present: average body habitus, cooperative - EENT Eyes: Present: PERRLA - Cardiovascular Rhythm: regular - Gastrointestinal Gastrointestinal Comment(s): soft nontended nondistended - Psychiatric Psychiatric: Present: A&O x's 3 - Labs CBC & Chem 7: 12/08/16 06:54 12/08/16 06:54 Labs: Abnormal Lab Results - Last 24 Hours (Table) 12/08/16 12/08/16 Range/Units 06:54 06:54 RBC 2.84 L (4.30-5.90) m/uL Hgb 10.5 L (13.0-17.5) gm/dL Hct 31.7 L (39.0-53.0) % MCV 111.8 H (80.0-100.0) fL MCH 37.1 H (25.0-35.0) pg Plt Count 45 L* (150-450) k/uL Lymphocytes # 0.5 L (1.0-4.8) k/uL Sodium 129 L (137-145) mmol/L Calcium 7.3 L (8.4-10.2) mg/dL Total Bilirubin 7.4 H (0.2-1.3) mg/dL AST 89 H (17-59) U/L Albumin 2.5 L (3.5-5.0) g/dL Amylase 462 H* (30-110) U/L Microbiology - Last 24 Hours (Table) 12/07/16 15:45 Blood Culture - Preliminary Blood No Growth after 24 hours 12/08/16 01:12 Urine Culture - Preliminary Urine,Voided Assessment and Plan (1) Abdominal pain Status: Acute (2) Acute pancreatitis Status: Acute (3) Jaundice Status: Acute Plan: Continue medical management per GI and primary. Will need to follow up with Dr. Rhodes in regards to possible cholecystectomy .
[2016-12-09 07:19] LABS: INR 1.9 (<1.2); Prothrombin Time 18.3 sec (9.0-12.0)
[2016-12-09 07:24] LABS: ALT 45 U/L (21-72); AST 75 U/L (17-59); Alkaline Phosphatase 98 U/L (38-126); Amylase 118 U/L (30-110); Anion Gap 6 mmol/L; Blood Urea Nitrogen 10 mg/dL (9-20); Calcium 7.3 mg/dL (8.4-10.2); Carbon Dioxide 23 mmol/L (22-30); Chloride 98 mmol/L (98-107); Glucose 76 mg/dL (74-99); Non-African American GFR(MDRD) >60 (>60 ml/min/1.73 sqM); Potassium 3.9 mmol/L (3.5-5.1); Sodium 127 mmol/L (137-145); Total Bilirubin 6.5 mg/dL (0.2-1.3); Total Protein 6.7 g/dL (6.3-8.2)
[2016-12-09] MEDS: SODIUM CHLORIDE 0.9% 1,000 ML IV SCH ×8 (07:29→22:34)
[2016-12-09 07:41] LABS: Basophils % (A) 0 %; CH 35.5; CHCM 31.5; Eosinophils # (A) 0.1 k/uL (0-0.7); Eosinophils % (A) 2 %; HCT 32.3 % (39.0-53.0); HDW 2.49; HGB 10.6 gm/dL (13.0-17.5); Hypochromasia Slight; Luc # (Auto) 0.24; Luc % (Auto) 4; Lymphocytes # (A) 0.5 k/uL (1.0-4.8); Lymphocytes % (A) 7 %; MCH 37.1 pg (25.0-35.0); MCHC 32.7 g/dL (31.0-37.0); MCV 113.4 fL (80.0-100.0); Macrocytosis Marked; Mean Platelet Volume 8.2; Monocytes # (A) 0.6 k/uL (0-1.0); Monocytes % (A) 10 %; Neutrophils # (A) 4.9 k/uL (1.3-7.7); Neutrophils % (A) 77 %; RBC 2.85 m/uL (4.30-5.90); RDW 14.6 % (11.5-15.5); WBC 6.4 k/uL (3.8-10.6); WBC (Perox) 6.02
[2016-12-09] MEDS: BISOPROLOL-HCTZ 10-6.25 MG 1 EACH TAB PO SCH (07:43)
[2016-12-09] MEDS: LISINOPRIL 10 MG TAB PO SCH (07:43)
[2016-12-09] MEDS: PANTOPRAZOLE 40 MG/10 ML VIAL IVP SCH ×2 (07:43→20:37)
[2016-12-09 08:02] LABS: Manual Review Performed
--- NOTE | 2016-12-09 08:25 | PN ---
PROGRESS NOTE DATE OF SERVICE: 12/08/2006. I am covering for Dr. Ramos. INTERVAL HISTORY: This 56-year-old gentleman admitted with severe abdominal pain and severe acute severe pancreatitis also. The patient also had previous pancreatitis, gallbladder polyp versus stone was suspected by surgery. Patient also had elevated LFTs. The patient also recommend a gastroenterology evaluation. CT scan showed possible appearance. Dr. Smith recommend MRCP evaluation but the patient would like to wait for Dr. Ramos's opinion before that. Laparoscopic cholecystectomy also suggested by surgeon as well. PAST MEDICAL HISTORY: Reviewed. REVIEW OF SYSTEMS: Cardio system: No palpitations or angina. Gastrointestinal: As mentioned earlier. Genitourinary: No dysuria. Central nervous system: No numbness, weakness. MEDICATIONS: Current medications are reviewed and include: 1. Xanax 0.25 t.i.d. 3. Heparin subcu b.i.d. 4. Dilaudid p.r.n. 5. Zestril 10 mg. 6. Ativan. 7. Narcan. 8. IV fluids. 9. Restoril. PHYSICAL EXAM: Patient is alert, oriented times three. Pulse 67. Blood pressure 120/64. Respirations 18, temperature 97.5, pulse ox 94% on room air. HEENT conjunctivae normal. Neck: No jugular venous distention. Cardiovascular: S1, S2. Respiratory: Breath sounds diminished in the bases. A few scattered rhonchi and crackles. ABDOMEN: Soft. Mild diffuse discomfort. Mild distention also present. Legs: No edema. No swelling. Central nervous system: No focal deficits. LABORATORY DATA: WBC 8, hemoglobin 10.5, platelets of 45. Otherwise bilirubin is 1.4, and AST 89 , amylase 462. ASSESSMENT: 1. Acute severe recurrent pancreatitis. 2. History of previous pancreatitis. 3. Possible cirrhosis of the liver. 4. Hyperbilirubinemia. 5. Anemia. 6. Cerebrovascular accident. 7. Hypertension. 8. Rule out cirrhosis of the liver. 9. Coagulopathy secondary to chronic liver disease. 10.Thrombocytopenia. RECOMMENDATIONS AND DISCUSSION: This 56-year-old gentleman presented with multiple medical problems as mentioned earlier. At this time we will monitor the patient closely. Continue current medications and symptomatic treatment. The patient is on clear liquids at this time. MRCP is recommended by Dr. Smith. Otherwise continue to monitor. Continue IV fluids. Monitor amylase and lipase. Prognosis guarded because of multiple complex medical issues. Further recommendations to follow. MMODL / IJN: [id number] / ARRON
--- NOTE | 2016-12-09 16:31 | PN ---
PROGRESS NOTE DATE OF SERVICE: 12/09/2016 The patient is a 56-year-old pleasant white male admitted to the hospital with acute onset of epigastric pain, nausea and vomiting for 2 days duration. Was noted to have elevated amylase and lipase consistent with acute pancreatitis. The patient states that he has been drinking 5-6 alcohol beers or alcohol drinks on a weekly basis for the last several years duration. At the time of admission to the hospital he was noted to have elevated amylase and lipase as well as elevated T. bili up to 7 g/dL. He did have a CT of the abdomen did not show any evidence of gallstones but evidence of changes in the pancreas consistent with acute pancreatitis and mild CBD duct dilation. The patient had two similar episodes of acute pancreatitis in the past one year duration. Today he feels better. Abdominal pain is improving. He is still requiring Dilaudid every 3 hours. Has some nausea. On a clear liquid diet, tolerating well. PHYSICAL EXAMINATION: Appears comfortable, no apparent distress. Vital signs are stable. Blood pressure is 116/68, pulse is 66, temperature 97.6. HEENT: Unremarkable. Conjunctivae pink. Sclerae anicteric. Oral cavity, no lesions. NECK: No JVD, no lymph node enlargement. CHEST: Clear to auscultation. HEART: Regular rate and rhythm. ABDOMEN: Soft. Bowel sounds are positive. No organomegaly. EXTREMITIES: Mild tenderness in the epigastric area. Bowel sounds are positive. EXTREMITIES: No pedal edema. SKIN: No rashes. NEURO: Alert and oriented x3. No focal deficits. LABS: From today show an amylase of 118. Lipase is still pending. T. bili is up to 7.3. AST 75, ALT 45. INR 1.9. WBC 6.4, hemoglobin 10.3, platelets are 52,000 and MCV is 113. IMPRESSION: 1. Acute recurrent pancreatitis, this being the third episode. Amylase and lipase are significantly improved. CT of the abdomen did show changes consistent with acute pancreatitis. Etiology of pancreatitis appears to be alcohol related. During his previous admissions he did have ultrasound of the abdomen that did not show any evidence of gallstones and the current CAT scan also does not show any evidence of gallstones. 2. Elevated bilirubin up to 6.5 with AST more than ALT and mild coagulopathy as well as pancytopenia, all of which are consistent with chronic liver disease with possible cirrhosis of the liver, most likely related to alcohol use. However, on further questioning patient admits to drinking only 4-5 beers on a weekly basis. He was investigated for other causes of pancreatitis which were all negative. In any event, it does not appear that we are dealing with any ascending cholangitis or common bile duct pathology and most likely this represents intrahepatic process. RECOMMENDATIONS: 1. I discussed with the patient and will schedule him for an MRCP tomorrow to evaluate the CBD. 2. Will continue with clear liquid diet. 3. Symptomatic and supportive care. 4. Will follow him closely during his hospital stay. At this time I will hold off on the ERCP and will . MMODL / IJN: [id number] /
--- NOTE | 2016-12-09 23:10 | PN ---
PROGRESS NOTE DATE OF SERVICE: 12/09/2016 This is a progress note. I am covering for Dr. Ramos. INTERVAL HISTORY: This 56-year-old gentleman who was admitted with abdominal pain had acute severe pancreatitis. The patient was suspected to have gallstone pancreatitis or polyp. MRCP has been recommended by Dr. Smith, and laparoscopic cholecystectomy is also consideration. Amylase and Lipase is improving at this time. No chest pain. No palpitations. Lipase level is not available for today. PHYSICAL EXAM: Alert oriented times three. Pulse 69, blood pressure 134/73. Respiratory rate 16, temp is 98.2, pulse ox 97% on room air. HEENT: Conjunctivae normal. Neck no jugular venous distention. Cardiovascular: S1, S2 muffled. Respiratory: Breath sounds diminished at the bases. No rhonchi. No crackles. ABDOMEN: Soft. Mild diffuse discomfort to palpation. No guarding. No rigidity. No mass palpable. Legs no edema. No swelling. central nervous system: No focal deficits. LABORATORY DATA: WBC 6.5, hemoglobin 10.6, INR is 1.9 and amylase is 180, lipase is not available. ASSESSMENT: 1. Acute severe recurrent pancreatitis. 2. History of previous pancreatitis. 3. Possible cirrhosis of the liver. 4. Rule out gallstones or polyps. 5. Hyperbilirubinemia. 6. Anemia. 7. Cerebrovascular accident. 8. Hypertension. 9. Rule out cirrhosis of the liver. 10.Coagulopathy secondary to chronic liver disease. 11.Thrombocytopenia. RECOMMENDATIONS AND DISCUSSION: Recommend to continue current medications and symptomatic treatment. Otherwise at this time recommend follow the patient closely. The platelets were 52 and stable today. Amylase and lipase improving as mentioned earlier, the total bilirubin is still elevated at 6.5, Dr. Smith minutes recommended MRCP for further evaluation. Overall prognosis is guarded because of multiple complex medical issues and Dr. Ramos will follow. MMODL / IJN: [id number] /
[2016-12-10] MEDS: MEROPENEM 2 GM in SODIUM CHLORIDE 0.9% 100 ML IVPB SCH ×4 (00:02→23:01)
[2016-12-10 07:58] LABS: INR 1.7 (<1.2); Prothrombin Time 16.6 sec (9.0-12.0)
[2016-12-10] MEDS: LISINOPRIL 10 MG TAB PO SCH (08:10)
[2016-12-10] MEDS: PANTOPRAZOLE 40 MG/10 ML VIAL IVP SCH (08:10)
[2016-12-10] MEDS: BISOPROLOL-HCTZ 10-6.25 MG 1 EACH TAB PO SCH (08:10)
--- NOTE | 2016-12-10 08:17 | P.PN ---
Subjective Principal diagnosis: Pancreatitis/continuing care. This is a continue present 56-year-old white male essentially admitted for recurrent pancreatitis. The patient is tolerating clear liquids. Question need for cholecystectomy. Appreciate surgical and GI input. Return examination otherwise noted. Objective - Vital Signs Vital signs: Vital Signs Temp 98.4 F 12/10/16 07:00 Pulse 76 12/10/16 07:00 Resp 18 12/10/16 07:00 BP 134/73 12/10/16 07:00 Pulse Ox 95 12/10/16 07:00 Intake & Output 12/09/16 12/10/16 12/10/16 18:59 06:59 18:59 Intake Total 2350 3200 Balance 2350 3200 Intake: Intake, IV Titration 1600 3200 Amount Sodium Chloride 0.9% 1, 1600 3200 000 ml @ 200 mls/hr IV . Q5H [facility] Rx#:[id number] Oral 750 Other: Voiding Method Toilet Toilet # Voids 2 3 # Bowel Movements 1 - Constitutional General appearance: Present: average body habitus - EENT Eyes: Absent: abnormal pupil - Respiratory Respiratory: bilateral: CTA - Cardiovascular Rhythm: regular Heart sounds: normal: S1, S2 - Gastrointestinal General gastrointestinal: Present: soft Localized gastrointestinal: tender: RUQ - Integumentary Integumentary: Absent: normal, pale - Labs CBC & Chem 7: 12/09/16 06:42 12/09/16 06:42 Labs: Abnormal Lab Results - Last 24 Hours (Table) 12/09/16 12/10/16 Range/Units 06:42 07:02 PT 16.6 H (9.0-12.0) sec INR 1.7 H (<1.2) Lipase 1539 H (23-300) U/L Microbiology - Last 24 Hours (Table) 12/07/16 15:45 Blood Culture - Preliminary Blood No Growth after 48 hours 12/08/16 01:12 Urine Culture - Final Urine,Voided Assessment and Plan (1) Acute pancreatitis Status: Acute Plan: Continue current regimen of treatment. Advance diet per surgery and GI. Check amylase and lipase in a.m. Anticipate discharge in next 24-48 hours if stabilizing.
[2016-12-10 08:25] LABS: ALT 41 U/L (21-72); AST 79 U/L (17-59); Alkaline Phosphatase 89 U/L (38-126); Amylase <30 U/L (30-110); Anion Gap 4 mmol/L; Blood Urea Nitrogen 6 mg/dL (9-20); Calcium 6.9 mg/dL (8.4-10.2); Carbon Dioxide 23 mmol/L (22-30); Chloride 98 mmol/L (98-107); Glucose 62 mg/dL (74-99); Non-African American GFR(MDRD) >60 (>60 ml/min/1.73 sqM); Potassium 4.3 mmol/L (3.5-5.1); Sodium 125 mmol/L (137-145); Total Bilirubin 5.8 mg/dL (0.2-1.3); Total Protein 6.3 g/dL (6.3-8.2)
[2016-12-10 08:30] LABS: Aty Lym Flag Slight; CH 35.6; CHCM 32.1; HCT 31.4 % (39.0-53.0); HGB 10.4 gm/dL (13.0-17.5); MCH 37.1 pg (25.0-35.0); MCHC 33.2 g/dL (31.0-37.0); MCV 111.6 fL (80.0-100.0); Macrocytosis Marked; Mean Platelet Volume 8.5; RBC 2.81 m/uL (4.30-5.90); RDW 14.3 % (11.5-15.5); WBC 4.3 k/uL (3.8-10.6); WBC (Perox) 4.45
[2016-12-10 09:08] LABS: Add Differential Manual Differential
[2016-12-10 09:12] LABS: Manual Review Performed; Nucleated Red Blood Cells 0 /100 WBC (0-0); Total Cells Counted 100
--- NOTE | 2016-12-10 09:19 | P.PN ---
Subjective Principal diagnosis: hepatitis jaundice 56-year-old male with clinical history to suggest EtOH abuse underlying alcohol liver disease cirrhosis presents with jaundice suspected alcohol induced pancreatitis. MRCP was recommended secondary to jaundice however patient was waiting to discuss this with his PCP this morning. Total bilirubin 6.9. Amylase less than 30. Lipase pending. INR 1.7. Sodium 125. AST 79. ALT 41 alkaline phosphatase 89 white count 4.3. Platelet 50,000.. Objective - Vital Signs Vital signs: Vital Signs Temp 98.4 F 12/10/16 07:00 Pulse 76 12/10/16 07:30 Resp 18 12/10/16 07:00 BP 134/73 12/10/16 07:00 Pulse Ox 95 12/10/16 07:00 Intake & Output 12/09/16 12/10/16 12/10/16 18:59 06:59 18:59 Intake Total 2350 3200 Balance 2350 3200 Intake: Intake, IV Titration 1600 3200 Amount Sodium Chloride 0.9% 1, 1600 3200 000 ml @ 200 mls/hr IV . Q5H [facility] Rx#:[id number] Oral 750 Other: Voiding Method Toilet Toilet # Voids 2 3 # Bowel Movements 1 - Exam General appearance: The patient is alert, oriented, in no acute distress. Jaundice. HET: Head is normocephalic and atraumatic. Pupils are equal and reactive. Sclerae icterus. Oropharynx is clear without lesions. Neck: Supple without lymphadenopathy. Trachea midline. Heart: S1 S2. Regular rate and rhythm. Lungs: No crackles or wheezes are heard. Abdomen: Soft, nontender, nondistended with bowel sounds. No peritoneal signs. No palpable organomegaly or masses. Extremities: Normal skin color and turgor. No cyanosis, rash, ulceration, clubbing, or edema. Radial and pedal pulses are 2/4 bilaterally. Neurological: No focal deficits. Strength and sensation are grossly intact. - Labs CBC & Chem 7: 12/10/16 07:02 12/10/16 07:02 Labs: Abnormal Lab Results - Last 24 Hours (Table) 12/09/16 12/10/16 12/10/16 Range/Units 06:42 07:02 07:02 RBC 2.81 L (4.30-5.90) m/uL Hgb 10.4 L (13.0-17.5) gm/dL Hct 31.4 L (39.0-53.0) % MCV 111.6 H (80.0-100.0) fL MCH 37.1 H (25.0-35.0) pg Plt Count 50 L* (150-450) k/uL PT (9.0-12.0) sec INR (<1.2) Sodium 125 L (137-145) mmol/L BUN 6 L (9-20) mg/dL Creatinine 0.59 L (0.66-1.25) mg/dL Glucose 62 L (74-99) mg/dL Calcium 6.9 L (8.4-10.2) mg/dL Total Bilirubin 5.8 H (0.2-1.3) mg/dL AST 79 H (17-59) U/L Albumin 2.3 L (3.5-5.0) g/dL Amylase <30 L (30-110) U/L Lipase 1539 H (23-300) U/L 12/10/16 Range/Units 07:02 RBC (4.30-5.90) m/uL Hgb (13.0-17.5) gm/dL Hct (39.0-53.0) % MCV (80.0-100.0) fL MCH (25.0-35.0) pg Plt Count (150-450) k/uL PT 16.6 H (9.0-12.0) sec INR 1.7 H (<1.2) Sodium (137-145) mmol/L BUN (9-20) mg/dL Creatinine (0.66-1.25) mg/dL Glucose (74-99) mg/dL Calcium (8.4-10.2) mg/dL Total Bilirubin (0.2-1.3) mg/dL AST (17-59) U/L Albumin (3.5-5.0) g/dL Amylase (30-110) U/L Lipase (23-300) U/L Microbiology - Last 24 Hours (Table) 12/07/16 15:45 Blood Culture - Preliminary Blood No Growth after 48 hours 12/08/16 01:12 Urine Culture - Final Urine,Voided Assessment and Plan (1) Acute pancreatitis Narrative/Plan: Suspect alcohol-induced pancreatitis with a history of alcohol consumption chronically with previous hospitalizations of hepatitis and pancreatitis. CT imaging suggestive possible cirrhotic liver and changes consistent with acute pancreatitis. Status: Acute (2) Acute hepatitis Status: Acute (3) Cholelithiasis Status: Acute (4) Jaundice Status: Acute (5) Thrombocytopenia Status: Acute (6) Coagulopathy Status: Acute (7) Macrocytosis Status: Chronic Plan: 1 MRCP recommended patient is still deciding. Recommendations discussed with Dr. Ramos this morning. Will await patient's decision. 2. Supportive measures. Assessment and plan a care discussed with Dr. Smith
[2016-12-10] MEDS: HYDROmorphone 1 MG/ML 1 ML SYRINGE IV PRN ×3 (10:46→23:04)
[2016-12-10] MEDS: ONDANSETRON 4 MG/2 ML VIAL IVP PRN ×2 (10:47→23:05)
[2016-12-10] MEDS: PANTOPRAZOLE 40 MG TABLET PO SCH (17:21)
--- NOTE | 2016-12-10 17:23 | P.PN ---
Progress Note - Text the patient's feeling better. Apparently his MRCP was canceled due to the width of his shoulders. He would not fit into the gantry of the MRI. The patient is unclear if he is having an ERCP performed tomorrow. On exam his vital signs are stable. His abdomen is soft. alcohol cirrhosis,. Scondition she was scheduled for ERCP. We will follow with you.
[2016-12-10 19:36] LABS: Hepatitis B Surface Ag Index 0.05
[2016-12-10 19:42] LABS: Hepatitis B Core IgM Index 0.01
[2016-12-10 19:54] LABS: Hepatitis C Virus IgG Ab Negative (Negative); Hepatitis C Virus IgG Index 0.19
[2016-12-10] MEDS: SODIUM CHLORIDE 0.9% 1,000 ML IV SCH (23:17)
[2016-12-11 07:34] LABS: Aty Lym Flag Slight; CH 35.8; CHCM 32.5; HCT 31.8 % (39.0-53.0); HGB 10.3 gm/dL (13.0-17.5); MCHC 32.5 g/dL (31.0-37.0); MCV 110.8 fL (80.0-100.0); Macrocytosis Marked; Mean Platelet Volume 7.5; RBC 2.87 m/uL (4.30-5.90); RDW 14.3 % (11.5-15.5); WBC 2.9 k/uL (3.8-10.6); WBC (Perox) 3.01
[2016-12-11 07:36] LABS: INR 1.8 (<1.2); Prothrombin Time 17.4 sec (9.0-12.0)
[2016-12-11 07:44] LABS: ALT 39 U/L (21-72); AST 60 U/L (17-59); Alkaline Phosphatase 102 U/L (38-126); Amylase <30 U/L (30-110); Anion Gap 3 mmol/L; Blood Urea Nitrogen 5 mg/dL (9-20); Calcium 7.2 mg/dL (8.4-10.2); Carbon Dioxide 25 mmol/L (22-30); Chloride 98 mmol/L (98-107); Glucose 75 mg/dL (74-99); Non-African American GFR(MDRD) >60 (>60 ml/min/1.73 sqM); Potassium 3.7 mmol/L (3.5-5.1); Sodium 126 mmol/L (137-145); Total Bilirubin 5.2 mg/dL (0.2-1.3); Total Protein 6.1 g/dL (6.3-8.2)
[2016-12-11] MEDS: SODIUM CHLORIDE 0.9% 1,000 ML IV SCH ×6 (07:57→08:26)
[2016-12-11] MEDS: MEROPENEM 2 GM in SODIUM CHLORIDE 0.9% 100 ML IVPB SCH ×2 (08:04→16:36)
[2016-12-11] MEDS: PANTOPRAZOLE 40 MG TABLET PO SCH ×2 (08:04→16:37)
[2016-12-11] MEDS: BISOPROLOL-HCTZ 10-6.25 MG 1 EACH TAB PO SCH (08:05)
[2016-12-11] MEDS: LISINOPRIL 10 MG TAB PO SCH (08:05)
[2016-12-11] MEDS: HYDROmorphone 1 MG/ML 1 ML SYRINGE IV PRN (08:05)
[2016-12-11] MEDS: ONDANSETRON 4 MG/2 ML VIAL IVP PRN (08:05)
[2016-12-11 10:24] LABS: Add Differential Manual Differential
[2016-12-11 10:26] LABS: Manual Review Performed; Nucleated Red Blood Cells 0 /100 WBC (0-0); Total Cells Counted 100
--- NOTE | 2016-12-11 11:00 | P.PN ---
Subjective Principal diagnosis: hepatitis jaundice 56-year-old male with clinical history to suggest EtOH abuse underlying alcohol liver disease cirrhosis presents with jaundice suspected alcohol induced pancreatitis. MRCP attempted yesterday cnacelled secondary to body habitus. Total bilirubin improved 5.2. Lipase 300 range. Tolerating low fat diet. Minimal abdominal pain. Objective - Vital Signs Vital signs: Vital Signs Temp 98.7 F 12/11/16 06:59 Pulse 78 12/11/16 08:00 Resp 18 12/11/16 06:59 BP 125/71 12/11/16 06:59 Pulse Ox 97 12/11/16 06:59 Intake & Output 12/10/16 12/11/16 12/11/16 18:59 06:59 18:59 Intake Total 525 400 Balance 525 400 Intake: Intake, IV Titration 525 Amount Sodium Chloride 0.9% 1, 525 000 ml @ 200 mls/hr IV . Q5H [facility] Rx#:[id number] Oral 400 Other: Voiding Method Toilet Toilet # Voids 3 1 # Bowel Movements 1 - Exam General appearance: The patient is alert, oriented, in no acute distress. Jaundice. HET: Head is normocephalic and atraumatic. Pupils are equal and reactive. Sclerae icterus. Oropharynx is clear without lesions. Neck: Supple without lymphadenopathy. Trachea midline. Heart: S1 S2. Regular rate and rhythm. Lungs: No crackles or wheezes are heard. Abdomen: Soft, nontender, nondistended with bowel sounds. No peritoneal signs. No palpable organomegaly or masses. Extremities: Normal skin color and turgor. No cyanosis, rash, ulceration, clubbing, or edema. Radial and pedal pulses are 2/4 bilaterally. Neurological: No focal deficits. Strength and sensation are grossly intact. - Labs CBC & Chem 7: 12/11/16 07:03 12/11/16 07:03 Labs: Abnormal Lab Results - Last 24 Hours (Table) 12/11/16 12/11/16 12/11/16 Range/Units 07:03 07:03 07:03 WBC 2.9 L (3.8-10.6) k/uL RBC 2.87 L (4.30-5.90) m/uL Hgb 10.3 L (13.0-17.5) gm/dL Hct 31.8 L (39.0-53.0) % MCV 110.8 H (80.0-100.0) fL MCH 36.0 H (25.0-35.0) pg Plt Count 48 L* (150-450) k/uL Lymphocytes # (Manual) 0.35 L (1.0-4.8) k/uL PT 17.4 H (9.0-12.0) sec INR 1.8 H (<1.2) Sodium 126 L (137-145) mmol/L BUN 5 L (9-20) mg/dL Creatinine 0.62 L (0.66-1.25) mg/dL Calcium 7.2 L (8.4-10.2) mg/dL Total Bilirubin 5.2 H (0.2-1.3) mg/dL AST 60 H (17-59) U/L Total Protein 6.1 L (6.3-8.2) g/dL Albumin 2.2 L (3.5-5.0) g/dL Amylase <30 L (30-110) U/L Lipase 336 H (23-300) U/L Microbiology - Last 24 Hours (Table) 12/07/16 15:45 Blood Culture - Preliminary Blood No Growth after 72 hours Assessment and Plan (1) Acute pancreatitis Narrative/Plan: Suspect alcohol-induced pancreatitis with a history of alcohol consumption chronically with previous hospitalizations of hepatitis and pancreatitis. CT imaging suggestive possible cirrhotic liver and changes consistent with acute pancreatitis. Status: Acute (2) Acute hepatitis Status: Acute (3) Cholelithiasis Status: Acute (4) Jaundice Status: Acute (5) Thrombocytopenia Status: Acute (6) Coagulopathy Status: Acute (7) Macrocytosis Status: Chronic Plan: 1. Outpatient MRI recommended. Will have GI office schedule. 2. DC per medicine. RTO after MRI is completed. Assessment and plan of care discussed with Dr. Smith
--- NOTE | 2016-12-11 14:40 | P.PN ---
Subjective 56-year-old male being seen on rounds patient currently is resting in bed. Patient states tolerating a low-fat diet. MRCP was attempted the day before but needed to be canceled secondary to patient's body habitus patient states is a noted improvement in the abdominal pain. Patient verbalizes an understanding of the plan of care. Patient states "I think I'm going to be discharged tomorrow and the MRCP will be scheduled at another facility. Once things could stabilized I will likely need a gallbladder addressed." Objective - Vital Signs Vital signs: Vital Signs Temp 98.7 F 12/11/16 06:59 Pulse 78 12/11/16 08:00 Resp 18 12/11/16 06:59 BP 125/71 12/11/16 06:59 Pulse Ox 97 12/11/16 06:59 Intake & Output 12/10/16 12/11/16 12/11/16 18:59 06:59 18:59 Intake Total 525 400 Balance 525 400 Intake: Intake, IV Titration 525 Amount Sodium Chloride 0.9% 1, 525 000 ml @ 200 mls/hr IV . Q5H [facility] Rx#:[id number] Oral 400 Other: Voiding Method Toilet Toilet # Voids 3 1 # Bowel Movements 1 - Exam Physical exam pleasant 56-year-old gentleman resting in bed watching television does not appear in acute distress states abdominal pain improved Lungs essentially clear with adequate air movement on room air Heart S1-S2 audible and regular Abdomen soft bowel tones present to palpable organomegaly. Nontender not distended bowel tones extremities no edema - Labs CBC & Chem 7: 12/11/16 07:03 12/11/16 07:03 Labs: Abnormal Lab Results - Last 24 Hours (Table) 12/11/16 12/11/16 12/11/16 Range/Units 07:03 07:03 07:03 WBC 2.9 L (3.8-10.6) k/uL RBC 2.87 L (4.30-5.90) m/uL Hgb 10.3 L (13.0-17.5) gm/dL Hct 31.8 L (39.0-53.0) % MCV 110.8 H (80.0-100.0) fL MCH 36.0 H (25.0-35.0) pg Plt Count 48 L* (150-450) k/uL Lymphocytes # (Manual) 0.35 L (1.0-4.8) k/uL PT 17.4 H (9.0-12.0) sec INR 1.8 H (<1.2) Sodium 126 L (137-145) mmol/L BUN 5 L (9-20) mg/dL Creatinine 0.62 L (0.66-1.25) mg/dL Calcium 7.2 L (8.4-10.2) mg/dL Total Bilirubin 5.2 H (0.2-1.3) mg/dL AST 60 H (17-59) U/L Total Protein 6.1 L (6.3-8.2) g/dL Albumin 2.2 L (3.5-5.0) g/dL Amylase <30 L (30-110) U/L Lipase 336 H (23-300) U/L Microbiology - Last 24 Hours (Table) 12/07/16 15:45 Blood Culture - Preliminary Blood No Growth after 72 hours Assessment and Plan Plan: Impression (1) Acute pancreatitis Narrative/Plan: Suspect alcohol-induced pancreatitis with a history of alcohol consumption chronically with previous hospitalizations of hepatitis and pancreatitis. CT imaging suggestive possible cirrhotic liver and changes consistent with acute pancreatitis. Status: Acute (2) Acute hepatitis Status: Acute (3) Cholelithiasis Status: Acute (4) Jaundice Status: Acute (5) Thrombocytopenia Status: Acute (6) Coagulopathy Status: Acute (7) Macrocytosis chronic From a surgical perspective patient is felt to be clinically stable and appropriate to proceed with a discharge home defer to the timing of the discharge to internal medicine service. Patient will need to possible have a lap cholecystectomy with Dr. bourne
[2016-12-12] MEDS: HYDROmorphone 1 MG/ML 1 ML SYRINGE IV PRN (00:20)
[2016-12-12] MEDS: MEROPENEM 2 GM in SODIUM CHLORIDE 0.9% 100 ML IVPB SCH ×2 (00:21→10:38)
[2016-12-12] MEDS: SODIUM CHLORIDE 0.9% 1,000 ML IV SCH (03:15)
--- NOTE | 2016-12-12 07:28 | P.DS ---
Providers Date of admission: 12/07/16 11:46 Attending physician: Noman Ramos Consults: 12/07/16 11:58 Consult Physician Stat Consulting Provider: Ana Rosa Smith Consult Reason/Comments: pancreatitis Do you want consulting provider notified?: Yes 12/07/16 15:20 Consult Physician Routine Consulting Provider: Colton Rhodes Consult Reason/Comments: gall stones Do you want consulting provider notified?: Yes Primary care physician: Noman Ramos - Discharge Diagnosis(es) (1) Acute pancreatitis Current Visit: No Status: Acute Hospital Course: This discharge summary 56-year-old white male essentially admitted for recurrent pancreatitis. There is suspicion of alcoholism given his liver dysfunctionality and PT/INR results. He denies any excessive ethanol usage. The patient has been stabilized and will require outpatient MRCP. The patient is discharged in stable condition with pancreatic enzyme supplementation to follow-up with me in about one week.z Patient Condition at Discharge: Good Plan - Discharge Summary New Discharge Prescriptions: New Lipase/Protease/Amylase [Bhupinder Dozier 6,000 Units Capsule] 1 each PO BID #60 capsule. No Action Lisinopril [Zestril] 10 mg PO DAILY Bisoprolol-Hctz 10-6.25 mg [Ziac 10-6.25 MG] 1 tab PO DAILY Discharge Medication List Bisoprolol-Hctz 10-6.25 mg [Ziac 10-6.25 MG] 1 tab PO DAILY 11/23/15 [History] Lisinopril [Zestril] 10 mg PO DAILY 11/23/15 [History] Lipase/Protease/Amylase [Bhupinder Dozier 6,000 Units Capsule] 1 each PO BID #60 capsule. 12/12/16 [Rx] Follow up Appointment(s)/Referral(s): Ana Rosa Smith MD [STAFF PHYSICIAN] - 2 Weeks Cloton Rhodes MD [STAFF PHYSICIAN] - 3 Weeks Noman Ramos MD [Primary Care Provider] - 1 Week Ambulatory/Diagnostic Orders: Miscellaneous Radiology Order [RAD.AMB] Time Frame: 1 Week, Location: Determined By Patient Activity/Diet/Wound Care/Special Instructions: Outpatient MRI; Dr. Smith's office to schedule. Discharge Disposition: HOME SELF-CARE
[2016-12-12 08:10] VITALS: BP 133/74; PULSE 75; TEMP 98.9
[2016-12-12] MEDS: BISOPROLOL-HCTZ 10-6.25 MG 1 EACH TAB PO SCH (08:28)
[2016-12-12] MEDS: LISINOPRIL 10 MG TAB PO SCH (08:29)
[2016-12-12] MEDS: PANTOPRAZOLE 40 MG TABLET PO SCH (08:29)
[2016-12-12 08:44] LABS: ALT 47 U/L (21-72); AST 61 U/L (17-59); Alkaline Phosphatase 92 U/L (38-126); Amylase <30 U/L (30-110); Anion Gap 3 mmol/L; Blood Urea Nitrogen 5 mg/dL (9-20); Calcium 7.4 mg/dL (8.4-10.2); Carbon Dioxide 28 mmol/L (22-30); Chloride 98 mmol/L (98-107); Glucose 74 mg/dL (74-99); Non-African American GFR(MDRD) >60 (>60 ml/min/1.73 sqM); Potassium 3.7 mmol/L (3.5-5.1); Sodium 129 mmol/L (137-145); Total Bilirubin 4.9 mg/dL (0.2-1.3)
[2016-12-12 08:47] LABS: INR 1.8 (<1.2); Prothrombin Time 17.7 sec (9.0-12.0)
[2016-12-12 09:03] LABS: Aty Lym Flag Slight; CH 35.4; HCT 31.2 % (39.0-53.0); HGB 10.1 gm/dL (13.0-17.5); MCH 35.9 pg (25.0-35.0); MCHC 32.2 g/dL (31.0-37.0); MCV 111.3 fL (80.0-100.0); Macrocytosis Marked; Mean Platelet Volume 7.8; RDW 14.3 % (11.5-15.5); WBC 2.3 k/uL (3.8-10.6); WBC (Perox) 2.29
[2016-12-12 09:47] VITALS: RESP 16
[2016-12-12 10:53] LABS: Add Differential Manual Differential
[2016-12-12 10:56] LABS: Manual Review Performed; Nucleated Red Blood Cells 0 /100 WBC (0-0); Total Cells Counted 100
== END 2016-12-12 13:00 | disposition home or self-care (01) | DRG 439 ==
LOC: EC 08:59 → 5MS5E 11:46
PROVIDERS: ADMIT Family Medicine; ATTEND Family Medicine
DX: K85.20 Alcohol induced acute pancreatitis without necrosis or infection (principal); B17.9 Acute viral hepatitis, unspecified; D61.818 Other pancytopenia; D68.4 Acquired coagulation factor deficiency; D69.6 Thrombocytopenia, unspecified; R56.9 Unspecified convulsions; K80.70 Calculus of gallbladder and bile duct without cholecystitis without obstruction; K70.31 Alcoholic cirrhosis of liver with ascites; D53.9 Nutritional anemia, unspecified; D75.89 Other specified diseases of blood and blood-forming organs; I10 Essential (primary) hypertension; F10.20 Alcohol dependence, uncomplicated; Z79.899 Other long term (current) drug therapy; Z82.49 Family history of ischemic heart disease and other diseases of the circulatory system
CPT/HCPCS: 36415; 71010; 74176; 76705; 80053; 80074; 81003; 82150; 83690; 85025; 85610; 85730; 87040; 87086; 93005; 96361; 96374; 96375; 96376; 99285

== ENCOUNTER 2017-12-01 20:38 | Inpatient (IN) | payer MEDICAID, OTHER ==
[2017-12-01 21:33] LABS: INR 1.6 (<1.2); Partial Thromboplastin Time 29.9 sec (22.0-30.0); Prothrombin Time 14.5 sec (9.0-12.0)
[2017-12-01 21:35] LABS: Anisocytosis Slight; Basophils % (A) 1 %; Eosinophils # (A) 0.2 k/uL (0-0.7); Eosinophils % (A) 5 %; HCT 32.5 % (39.0-53.0); HGB 10.5 gm/dL (13.0-17.5); Lymphocytes # (A) 0.5 k/uL (1.0-4.8); Lymphocytes % (A) 16 %; MCH 35.8 pg (25.0-35.0); MCHC 32.3 g/dL (31.0-37.0); MCV 110.7 fL (80.0-100.0); Macrocytosis Marked; Mean Platelet Volume 7.4; Monocytes # (A) 0.3 k/uL (0-1.0); Monocytes % (A) 10 %; Neutrophils # (A) 1.9 k/uL (1.3-7.7); Neutrophils % (A) 63 %; RBC 2.94 m/uL (4.30-5.90); RDW 16.6 % (11.5-15.5)
--- NOTE | 2017-12-01 21:37 | ED ---
General Adult HPI - General Chief complaint: Chest Pain Stated complaint: depression/sob/chest pain Time Seen by Provider: 12/01/17 21:02 Source: patient, RN notes reviewed, old records reviewed Mode of arrival: wheelchair Limitations: no limitations - History of Present Illness Initial comments: 57-year-old male presents to emergency department with 2 complaints, both chest pain and depression with suicidal ideation. Patient states over the past 3 weeks he's had intermittent central chest pain with some left arm pain and dyspnea. These episodes last approximately 15 minutes. No diaphoresis. No nausea or vomiting. Patient denies significant abdominal pain. No known history of CAD. He does have history of pancreatitis and admits to alcohol consumption. Patient's second and likely primary complaint is depression with suicidal ideation. He has had worsening depression over the past several weeks. He has had thoughts of committing suicide although he does not have a specific plan. Denies any self-harm or suicide attempt. - Related Data Home Medications Medication Instructions Recorded Confirmed Bisoprolol-Hctz 10-6.25 mg [Ziac 1 tab PO DAILY 11/23/15 12/01/17 10-6.25 MG] Lisinopril [Zestril] 10 mg PO DAILY 11/23/15 12/01/17 Previous Rx's Medication Instructions Recorded Lipase/Protease/Amylase [Bhupinder Dozier 1 each PO BID #60 capsule. 12/12/16 6,000 Units Capsule] Allergies Allergy/AdvReac Type Severity Reaction Status Date / Time No Known Allergies Allergy Verified 12/01/17 20:57 Review of Systems ROS Statement: Those systems with pertinent positive or pertinent negative responses have been documented in the HPI. ROS Other: All systems not noted in ROS Statement are negative. Past Medical History Past Medical History: Hypertension Additional Past Medical History / Comment(s): pancreatitis History of Any Multi-Drug Resistant Organisms: None Reported Past Surgical History: No Surgical Hx Reported Past Anesthesia/Blood Transfusion Reactions: No Reported Reaction Past Psychological History: No Psychological Hx Reported Smoking Status: Never smoker Past Alcohol Use History: Occasional Past Drug Use History: None Reported - Past Family History Mother Family Medical History: Hypertension Father Family Medical History: CVA/TIA General Exam Limitations: no limitations General appearance: alert, in no apparent distress Head exam: Present: atraumatic, normocephalic Eye exam: Present: normal appearance, PERRL ENT exam: Present: normal exam Neck exam: Present: normal inspection. Absent: tenderness, meningismus Respiratory exam: Present: normal lung sounds bilaterally. Absent: respiratory distress, wheezes, rales Cardiovascular Exam: Present: regular rate, normal rhythm GI/Abdominal exam: Present: soft, tenderness (Mild epigastric tenderness). Absent: distended Extremities exam: Present: normal inspection, normal capillary refill. Absent: pedal edema Back exam: Present: normal inspection. Absent: full ROM, tenderness Neurological exam: Present: alert, oriented X3, CN II-XII intact. Absent: motor sensory deficit Psychiatric exam: Present: depressed, suicidal ideation Skin exam: Present: warm, dry, intact. Absent: cyanosis, diaphoretic Course Vital Signs 12/01/17 12/01/17 20:53 21:54 Temperature 98.8 F Pulse Rate 68 66 Respiratory 16 18 Rate Blood Pressure 125/67 143/60 O2 Sat by Pulse 97 98 Oximetry EKG Findings - EKG Comments: EKG Findings:: EKG: Normal sinus rhythm, first-degree AV block, rate of 71, NJ interval 214, QRS duration 88, QTC 443, no ST segment elevation. Medical Decision Making - Medical Decision Making 57-year-old male presenting with chief complaint of depression and suicidal ideation. Secondary complaint is chest pain. Patient is evaluated in the emergency department for both of these issues. EKG is negative for definitive signs of ischemia, chest x-ray negative for acute cardiopulmonary disease. Laboratory studies reveal significant abnormalities however all of these appear chronic and improved from baseline including, white blood cell count 3.0 from 2.3, hemoglobin 10.5 from 10.1, INR 1.6 from 1.8, sodium 129 which is stable, total bilirubin is 2.9 from 4.9. Lipase mildly elevated and improved from baseline at 314, albumin 3.3 from 2.2, troponin is negative. All of these laboratory Values are explained by patient's chronic alcoholism. He is evaluated by EPS in the emergency department and will be admitted for further psychiatric treatment and evaluation. - Lab Data Result diagrams: 12/01/17 21:15 12/01/17 21:15 Lab Results 12/01/17 12/01/17 12/01/17 Range/Units 21:15 21:15 21:15 WBC 3.0 L (3.8-10.6) k/uL RBC 2.94 L (4.30-5.90) m/uL Hgb 10.5 L (13.0-17.5) gm/dL Hct 32.5 L (39.0-53.0) % MCV 110.7 H (80.0-100.0) fL MCH 35.8 H (25.0-35.0) pg MCHC 32.3 (31.0-37.0) g/dL RDW 16.6 H (11.5-15.5) % Plt Count 54 L (150-450) k/uL Neutrophils % 63 % Lymphocytes % 16 % Monocytes % 10 % Eosinophils % 5 % Basophils % 1 % Neutrophils # 1.9 (1.3-7.7) k/uL Lymphocytes # 0.5 L (1.0-4.8) k/uL Monocytes # 0.3 (0-1.0) k/uL Eosinophils # 0.2 (0-0.7) k/uL Basophils # 0.0 (0-0.2) k/uL Manual Slide Review Performed Poikilocytosis (manual Present Anisocytosis Slight Macrocytosis Marked PT (9.0-12.0) sec INR (<1.2) APTT (22.0-30.0) sec Sodium 129 L (137-145) mmol/L Potassium 3.8 (3.5-5.1) mmol/L Chloride 97 L (98-107) mmol/L Carbon Dioxide 21 L (22-30) mmol/L Anion Gap 11 mmol/L BUN 6 L (9-20) mg/dL Creatinine 0.80 (0.66-1.25) mg/dL Est GFR (CKD-EPI)AfAm >90 (>60 ml/min/1.73 sqM) Est GFR (CKD-EPI)NonAf >90 (>60 ml/min/1.73 sqM) Glucose 86 (74-99) mg/dL Calcium 8.2 L (8.4-10.2) mg/dL Magnesium 2.0 (1.6-2.3) mg/dL Total Bilirubin 2.9 H (0.2-1.3) mg/dL AST 62 H (17-59) U/L ALT 39 (21-72) U/L Alkaline Phosphatase 90 (38-126) U/L Total Creatine Kinase 97 (55-170) U/L CK-MB (CK-2) 1.1 (0.0-2.4) ng/mL CK-MB (CK-2) Rel Index 1.1 Troponin I <0.012 (0.000-0.034) ng/mL NT-Pro-B Natriuret Pep pg/mL Total Protein 7.6 (6.3-8.2) g/dL Albumin 3.3 L (3.5-5.0) g/dL Amylase 70 (30-110) U/L Lipase 314 H (23-300) U/L Urine Opiates Screen (NotDetected) Ur Oxycodone Screen (NotDetected) Urine Methadone Screen (NotDetected) Ur Propoxyphene Screen (NotDetected) Ur Barbiturates Screen (NotDetected) U Tricyclic Antidepress (NotDetected) Ur Phencyclidine Scrn (NotDetected) Ur Amphetamines Screen (NotDetected) U Methamphetamines Scrn (NotDetected) U Benzodiazepines Scrn (NotDetected) Urine Cocaine Screen (NotDetected) U Marijuana (THC) Screen (NotDetected) Serum Alcohol 93 mg/dL 12/01/17 12/01/17 12/01/17 Range/Units 21:15 21:15 21:52 WBC (3.8-10.6) k/uL RBC (4.30-5.90) m/uL Hgb (13.0-17.5) gm/dL Hct (39.0-53.0) % MCV (80.0-100.0) fL MCH (25.0-35.0) pg MCHC (31.0-37.0) g/dL RDW (11.5-15.5) % Plt Count (150-450) k/uL Neutrophils % % Lymphocytes % % Monocytes % % Eosinophils % % Basophils % % Neutrophils # (1.3-7.7) k/uL Lymphocytes # (1.0-4.8) k/uL Monocytes # (0-1.0) k/uL Eosinophils # (0-0.7) k/uL Basophils # (0-0.2) k/uL Manual Slide Review Poikilocytosis (manual Anisocytosis Macrocytosis PT 14.5 H (9.0-12.0) sec INR 1.6 H (<1.2) APTT 29.9 (22.0-30.0) sec Sodium (137-145) mmol/L Potassium (3.5-5.1) mmol/L Chloride (98-107) mmol/L Carbon Dioxide (22-30) mmol/L Anion Gap mmol/L BUN (9-20) mg/dL Creatinine (0.66-1.25) mg/dL Est GFR (CKD-EPI)AfAm (>60 ml/min/1.73 sqM) Est GFR (CKD-EPI)NonAf (>60 ml/min/1.73 sqM) Glucose (74-99) mg/dL Calcium (8.4-10.2) mg/dL Magnesium (1.6-2.3) mg/dL Total Bilirubin (0.2-1.3) mg/dL AST (17-59) U/L ALT (21-72) U/L Alkaline Phosphatase (38-126) U/L Total Creatine Kinase (55-170) U/L CK-MB (CK-2) (0.0-2.4) ng/mL CK-MB (CK-2) Rel Index Troponin I (0.000-0.034) ng/mL NT-Pro-B Natriuret Pep 263 pg/mL Total Protein (6.3-8.2) g/dL Albumin (3.5-5.0) g/dL Amylase (30-110) U/L Lipase (23-300) U/L Urine Opiates Screen Not Detected (NotDetected) Ur Oxycodone Screen Not Detected (NotDetected) Urine Methadone Screen Not Detected (NotDetected) Ur Propoxyphene Screen Not Detected (NotDetected) Ur Barbiturates Screen Not Detected (NotDetected) U Tricyclic Antidepress Not Detected (NotDetected) Ur Phencyclidine Scrn Not Detected (NotDetected) Ur Amphetamines Screen Not Detected (NotDetected) U Methamphetamines Scrn Not Detected (NotDetected) U Benzodiazepines Scrn Not Detected (NotDetected) Urine Cocaine Screen Not Detected (NotDetected) U Marijuana (THC) Screen Not Detected (NotDetected) Serum Alcohol mg/dL Disposition Clinical Impression: Depression, Suicidal ideation Disposition: ADMITTED IP TO THIS HOSP Condition: Stable Is patient prescribed a controlled substance at d/c from ED?: No Referrals: Noman Ramos MD [Primary Care Provider] - 1-2 days Decision to Admit Reason: Admit from EC Decision Date: 12/01/17 Decision Time: 23:30
[2017-12-01 21:42] LABS: ALT 39 U/L (21-72); AST 62 U/L (17-59); Albumin 3.3 g/dL (3.5-5.0); Alkaline Phosphatase 90 U/L (38-126); Amylase 70 U/L (30-110); Anion Gap 11 mmol/L; Blood Urea Nitrogen 6 mg/dL (9-20); Calcium 8.2 mg/dL (8.4-10.2); Carbon Dioxide 21 mmol/L (22-30); Chloride 97 mmol/L (98-107); Glucose 86 mg/dL (74-99); Lipase 314 U/L (23-300); Potassium 3.8 mmol/L (3.5-5.1); Sodium 129 mmol/L (137-145); Total Bilirubin 2.9 mg/dL (0.2-1.3); Total Protein 7.6 g/dL (6.3-8.2)
[2017-12-01 21:45] LABS: Platelet Count 54 k/uL (150-450); Poikilocytosis (M) Present
[2017-12-01 21:48] LABS: Creatine Kinase 97 U/L (55-170)
[2017-12-01 21:49] LABS: Alcohol 93 mg/dL
[2017-12-01 22:00] LABS: Creatine Kinase MB 1.1 ng/mL (0.0-2.4); Troponin I <0.012 ng/mL (0.000-0.034)
--- NOTE | 2017-12-01 22:00 | XR ---
EXAMINATION TYPE: XR chest 2V DATE OF EXAM: 12/01/2017 COMPARISON: December 07, 2016 HISTORY: Chest pain TECHNIQUE: Frontal and lateral views of the chest are obtained. FINDINGS: Heart and mediastinum are normal. Lungs are clear. Diaphragm is normal. Bony thorax is int act. There are chest leads. IMPRESSION: No active cardiopulmonary disease. No change.
[2017-12-01 22:10] LABS: Amphetamine Screen,Urine Not Detected (NotDetected); Barbiturate Screen,Urine Not Detected (NotDetected); Benzodiazepines Screen,Urine Not Detected (NotDetected); Cocaine Screen,Urine Not Detected (NotDetected); Methadone Screen, Urine Not Detected (NotDetected); Opiate Screen,Urine Not Detected (NotDetected); Oxycodone Screen, Urine Not Detected (NotDetected); Phencyclidine Screen,Urine Not Detected (NotDetected); Tricyclic Antidepressant,Urine Not Detected (NotDetected); Urn Cannabinoid Scrn Not Detected (NotDetected)
[2017-12-02] MEDS ORDERED: MAGNESIUM HYDROXIDE 2,400 MG/10 ML CUP PO PRN (00:12)
[2017-12-02] MEDS ORDERED: LORazepam 1 MG TAB PO PRN (00:12)
[2017-12-02] MEDS ORDERED: MAG HYDROX/AL HYDROX/SIMETH 30 ML CUP PO PRN (00:12)
[2017-12-02] MEDS ORDERED: ACETAMINOPHEN TAB 325 MG TAB PO PRN (00:12)
[2017-12-02 02:42] VITALS: BMI 34.4
[2017-12-02] MEDS: BISOPROLOL-HCTZ 10-6.25 MG 1 EACH TAB PO SCH (08:58)
[2017-12-02] MEDS: AMYLASE PO SCH ×2 (08:58→20:31)
[2017-12-02] MEDS: PROTEASE PO SCH ×2 (08:58→20:31)
[2017-12-02] MEDS: LOSARTAN 50 MG TAB PO SCH (08:58)
[2017-12-02] MEDS: LIPASE PO SCH ×2 (08:58→20:31)
[2017-12-02] MEDS: ESCITALOPRAM 5 MG TAB PO SCH (11:11)
[2017-12-02] MEDS: THIAMINE 100 MG TAB PO SCH (11:38)
[2017-12-02] MEDS: FOLIC ACID 1 MG TAB PO SCH (11:38)
--- NOTE | 2017-12-02 13:24 | P.HP ---
Psychiatric H&P - . H&P Date: 12/02/17 History & Physical: Allergies Allergy/AdvReac Type Severity Reaction Status Date / Time lisinopril AdvReac Cough Verified 12/02/17 01:42 Vital Signs Temp 98.0 F 12/02/17 02:26 Pulse 72 12/02/17 11:39 Resp 16 12/02/17 11:39 BP 146/70 12/02/17 11:39 Pulse Ox 98 12/01/17 23:44 Intake & Output 12/01/17 12/02/17 12/02/17 18:59 06:59 18:59 Weight 111.9 kg Laboratory Last Values WBC 3.0 k/uL (3.8-10.6) L 12/01/17 21:15 RBC 2.94 m/uL (4.30-5.90) L 12/01/17 21:15 Hgb 10.5 gm/dL (13.0-17.5) L 12/01/17 21:15 Hct 32.5 % (39.0-53.0) L 12/01/17 21:15 MCV 110.7 fL (80.0-100.0) H 12/01/17 21:15 MCH 35.8 pg (25.0-35.0) H 12/01/17 21:15 MCHC 32.3 g/dL (31.0-37.0) 12/01/17 21:15 RDW 16.6 % (11.5-15.5) H 12/01/17 21:15 Plt Count 54 k/uL (150-450) L 12/01/17 21:15 Neutrophils % 63 % 12/01/17 21:15 Lymphocytes % 16 % 12/01/17 21:15 Monocytes % 10 % 12/01/17 21:15 Eosinophils % 5 % 12/01/17 21:15 Basophils % 1 % 12/01/17 21:15 Neutrophils # 1.9 k/uL (1.3-7.7) 12/01/17 21:15 Lymphocytes # 0.5 k/uL (1.0-4.8) L 12/01/17 21:15 Monocytes # 0.3 k/uL (0-1.0) 12/01/17 21:15 Eosinophils # 0.2 k/uL (0-0.7) 12/01/17 21:15 Basophils # 0.0 k/uL (0-0.2) 12/01/17 21:15 Manual Slide Review Performed 12/01/17 21:15 Poikilocytosis (manual Present 12/01/17 21:15 Anisocytosis Slight 12/01/17 21:15 Macrocytosis Marked 12/01/17 21:15 PT 14.5 sec (9.0-12.0) H 12/01/17 21:15 INR 1.6 (<1.2) H 12/01/17 21:15 APTT 29.9 sec (22.0-30.0) 12/01/17 21:15 Sodium 129 mmol/L (137-145) L 12/01/17 21:15 Potassium 3.8 mmol/L (3.5-5.1) 12/01/17 21:15 Chloride 97 mmol/L (98-107) L 12/01/17 21:15 Carbon Dioxide 21 mmol/L (22-30) L 12/01/17 21:15 Anion Gap 11 mmol/L 12/01/17 21:15 BUN 6 mg/dL (9-20) L 12/01/17 21:15 Creatinine 0.80 mg/dL (0.66-1.25) 12/01/17 21:15 Est GFR (CKD-EPI)AfAm >90 (>60 ml/min/1.73 sqM) 12/01/17 21:15 Est GFR (CKD-EPI)NonAf >90 (>60 ml/min/1.73 sqM) 12/01/17 21:15 Glucose 86 mg/dL (74-99) 12/01/17 21:15 Calcium 8.2 mg/dL (8.4-10.2) L 12/01/17 21:15 Magnesium 2.0 mg/dL (1.6-2.3) 12/01/17 21:15 Total Bilirubin 2.9 mg/dL (0.2-1.3) H 12/01/17 21:15 GGT 134 U/L (15-73) H 12/01/17 21:15 AST 62 U/L (17-59) H 12/01/17 21:15 ALT 39 U/L (21-72) 12/01/17 21:15 Alkaline Phosphatase 90 U/L (38-126) 12/01/17 21:15 Total Creatine Kinase 97 U/L (55-170) 12/01/17 21:15 CK-MB (CK-2) 1.1 ng/mL (0.0-2.4) 12/01/17 21:15 CK-MB (CK-2) Rel Index 1.1 12/01/17 21:15 Troponin I <0.012 ng/mL (0.000-0.034) 12/01/17 21:15 NT-Pro-B Natriuret Pep 263 pg/mL 12/01/17 21:15 Total Protein 7.6 g/dL (6.3-8.2) 12/01/17 21:15 Albumin 3.3 g/dL (3.5-5.0) L 12/01/17 21:15 Triglycerides 67 mg/dL (<150) 12/01/17 21:15 Cholesterol 104 mg/dL (<200) 12/01/17 21:15 LDL Cholesterol, Calc 56 mg/dL (0-99) 12/01/17 21:15 HDL Cholesterol 35 mg/dL (40-60) L 12/01/17 21:15 Amylase 70 U/L (30-110) 12/01/17 21:15 Lipase 314 U/L (23-300) H 12/01/17 21:15 TSH 1.590 mIU/L (0.465-4.680) 12/01/17 21:15 Urine Opiates Screen Not Detected (NotDetected) 12/01/17 21:52 Ur Oxycodone Screen Not Detected (NotDetected) 12/01/17 21:52 Urine Methadone Screen Not Detected (NotDetected) 12/01/17 21:52 Ur Propoxyphene Screen Not Detected (NotDetected) 12/01/17 21:52 Ur Barbiturates Screen Not Detected (NotDetected) 12/01/17 21:52 U Tricyclic Antidepress Not Detected (NotDetected) 12/01/17 21:52 Ur Phencyclidine Scrn Not Detected (NotDetected) 12/01/17 21:52 Ur Amphetamines Screen Not Detected (NotDetected) 12/01/17 21:52 U Methamphetamines Scrn Not Detected (NotDetected) 12/01/17 21:52 U Benzodiazepines Scrn Not Detected (NotDetected) 12/01/17 21:52 Urine Cocaine Screen Not Detected (NotDetected) 12/01/17 21:52 U Marijuana (THC) Screen Not Detected (NotDetected) 12/01/17 21:52 Serum Alcohol 93 mg/dL 12/01/17 21:15 12/02/17 13:04 Identification: Patient is a 57-year-old male who was brought to the emergency room by his daughter and son-in-law due to suicidal ideations and depression as well as he reported complaints of chest pain. History of Present Illness: Patient states that the depression has been present for the last 4 months and he has not sought any treatment for this. He states that his daughter who works here at the hospital as a nurse recommended that he come into the hospital. He states that he's been sleeping more and has little motivation and no interest to do anything. He states that he's been living alone and his appetite is been decreased and he is feeling hopeless and helpless. He states that he has suicidal thoughts that there is no future for him but has no plan and does not want to . Patient states that he felt he should not be alone and presented to the hospital. Patient states that his other problem is that he now has no place to live as he was evicted from his apartment due to inability continue to pay the rent. Patient states that he lost his job 5-6 years ago and has been unemployed since that time and supporting himself on an inheritance. He states that he has no money left in his inheritance. He has been in this apartment for one year. Patient states that he has never been depressed in the past and has never received any treatment for depression in the past and has never been admitted to the inpatient psychiatric unit. Patient states that he is made no suicide attempts in the past. Patient does not endorse any history of psychotic symptoms manic symptoms or anxiety symptoms. Past Psychiatric History: Patient denies any prior inpatient admissions or outpatient treatment and has never been tried on any psychotropic medication. Past Medical/Surgical History: Patient has hypertension, he's been diagnosed and treated for pancreatitis. Family History: Patient reports no psychiatric history in the family, no alcohol or drug history in the family and no completed suicides. Social History: Patient was born and raised in [place] both of his parents are and he was an only child. He completed high school, had no service attended [employer] and then transferred to [employer] where he received his degree in [employer] science. 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 He states that the [employer] closed at this home and he was out of a job. Patient states this occurred in 2012. Patient states he's tried to find other jobs here but has not been able to do so and states that he has multiple applications out. Patient states that his mother in 2010 she was preceded by her and he received an inheritance from his parents at that time which he has been using to support himself since losing his job. Patient was for the first time for 5 years and . He had no children from that marriage. Patient was the second time for 22 years and is a , his in 2012. He has 3 children from that marriage who are ages 28, 26 and 24. Patient denies any abuse history. Patient states that he has no source of financial support he has no pension but he is on food stamps. He has been evicted from his apartment and has no place to live. Substance Use History: Patient states that he's used alcohol since he was in college drank more heavily in the past it states that the most he is ever used in the past was 8-9 beers 4-5 times a week. He states that currently he is using 4-5 beers a day and isn't drinking on a daily basis. He denies any use of hard liquor. Patient denies any current or prior drug use history and does not use tobacco products. Legal History: Patient denies any legal history Mental status: Appearance/Attitude: Patient is casually dressed, makes eye contact and is cooperative Behavior: Patient does not exhibit any psychomotor agitation or retardation. Speech/Language: Patient's speech is spontaneous of normal volume and rhythm and he is coherent. Thought Process: Patient is goal-directed there is no evidence of loose associations or flight of ideas Thought Content: Patient denies any auditory or visual hallucinations and no delusions or paranoid ideation or elicited. Patient states that he is feeling hopeless and helpless, he has no source of financial support and states he has been feeling depressed over the last 4 months patient states that he was recently evicted from his apartment. Patient states that he has been sleeping more but has no energy, no motivation. Patient states that his appetite is not been good. Suicidal/Homicidal Ideation: Patient states he has no current suicidal plan but states he has passive thoughts that he wonders if it's worth living, 20 to go on but states that he doesn't want to . Patient has no current homicidal ideation Sensorium/Cognition: Patient is alert and oriented to person, place, and time and his recent and remote memory are grossly intact Mood/Affect: Patient's mood is bland and his affect is blunted Insight/Judgment: Patient's insight and judgment are fair Intellectual Functioning: Patient's intellectual functioning appears average Strength/Weakness: Patient has an education, work history/lack of financial support, lack of housing Assessment: Patient presents states that he is had depressive symptoms for the last 4 months, has never been treated for depression in the past and does not endorse a history of anxiety, gino, psychosis or depressive symptoms prior to this. He has no history of suicide attempts in the past. Patient states that he's been feeling increasingly depressed, sleeping more with little motivation or energy to do things. Patient states he's feeling hopeless and helpless about the future has no suicidal plan but has had passive suicidal thoughts about whether or not it is worth going on. Patient states that he has no source of support is his inheritance ran out and he is unable to pay his rent and was evicted from his apartment. Patient lost his job 6 years ago as well as his in 2012. Patient downplays the use of alcohol, in reviewing his prior admissions it was proposed that his pancreatitis was secondary to lisinopril however an abdominal CAT scan in December 2016 revealed a fatty liver, ascites and splenomegaly as well as possible cirrhosis of the liver. Patient's lipase remains elevated, his AST is elevated and it GGT was ordered which was also elevated. Patient downplays the use of alcohol, does not see his pancreatitis is having anything to do with his alcohol use. Patient also has changes to his CBC which could be reflective of alcohol use. Upon discharge in December 2016 that was felt that some of his changes to his laboratory studies as well as the CAT scan results could have been consistent with alcohol use. Admission Diagnosis: Depressive disorder not otherwise specified, rule out alcohol induced depressive disorder, rule out alcohol use disorder Plan: Patient was admitted on a voluntary basis, placed on routine observation in group and activity therapy were ordered. Patient was also had routine laboratory studies and a medical consultation was also requested. Patient was placed on Lexapro 5 mg daily to target his depressive symptoms. He has a GGT elevation, blood alcohol level of 93 on admission, CAT scan results from December 2016 as well as a persistently elevated lipase, evidence of a macrocytic anemia which are suspect of an alcohol use disorder. Patient however downplayed this during our interview. Patient requires hospitalization to stabilize his mood. 12/02/17 13:20
--- NOTE | 2017-12-02 13:50 | P.CONS ---
History of Present Illness - Reason for Consult Consult date: 12/02/17 - Chief Complaint Depression - History of Present Illness This is a consultation on a 57-year-old white male who has been struggling with depression and despair with loneliness. He is living in a third floor apartment and is worried about inevitable falling and with poor health. Because of this element, he was appropriately admitted for severe depression and suicidality issues. He struggles with relationships with his family because he does struggle with chronic pancreatitis but admits to not drinking very much, evenfamily disagrees. No previous mental health issues. No significant fever or chills. No nausea, vomiting or diarrhea. No history of delirium tremens in the past. Review of Systems Constitutional: Denies chills, Denies fever Eyes: denies blurred vision, denies pain Ears, nose, mouth and throat: Denies headache, Denies sore throat Cardiovascular: Denies chest pain, Denies shortness of breath Respiratory: Denies cough Gastrointestinal: Denies abdominal pain, Denies diarrhea, Denies nausea, Denies vomiting Musculoskeletal: Denies myalgias Integumentary: Denies pruritus, Denies rash Psychiatric: Reports depression, Reports hopelessness, Reports mood swings Past Medical History Past Medical History: Hypertension Additional Past Medical History / Comment(s): pancreatitis History of Any Multi-Drug Resistant Organisms: None Reported Past Surgical History: No Surgical Hx Reported Past Anesthesia/Blood Transfusion Reactions: No Reported Reaction Smoking Status: Never smoker - Past Family History Mother Family Medical History: Hypertension Father Family Medical History: CVA/TIA Medications and Allergies Home Medications Medication Instructions Recorded Confirmed Type Bisoprolol-Hctz 10-6.25 mg [Ziac 1 tab PO DAILY 11/23/15 12/01/17 History 10-6.25 MG] Lipase/Protease/Amylase [Bhupinder Dozier 1 each PO BID #60 capsule. 12/12/16 Rx 6,000 Units Capsule] Losartan [Cozaar] 50 mg PO DAILY 12/02/17 12/02/17 History Allergies Allergy/AdvReac Type Severity Reaction Status Date / Time lisinopril AdvReac Cough Verified 12/02/17 01:42 Physical Exam Vitals: Vital Signs Temp Pulse Pulse Resp BP BP Pulse Ox 12/02/17 11:39 72 16 146/70 12/02/17 09:01 97 20 151/66 12/02/17 02:26 98.0 F 72 16 131/73 12/01/17 23:44 98.5 F 80 16 123/80 98 12/01/17 21:54 66 18 143/60 98 12/01/17 20:53 98.8 F 68 16 125/67 97 Intake and Output 12/01/17 12/02/17 12/02/17 22:59 06:59 14:59 Other: Weight 99.79 kg 111.9 kg - Constitutional General appearance: obese - EENT Eyes: no abnormal pupil - Respiratory Respiratory: bilateral: CTA - Cardiovascular Rhythm: regular Heart sounds: normal: S1, S2 Abnormal Heart Sounds: no S3 Gallop - Gastrointestinal General gastrointestinal: soft, no splenomegaly - Integumentary Integumentary: no cellulitis - Psychiatric Psychiatric: A&O x's 3, intact judgment & insight Results CBC & Chem 7: 12/01/17 21:15 12/01/17 21:15 Labs: Abnormal Lab Results - Last 24 Hours (Table) 12/01/17 12/01/17 12/01/17 Range/Units 21:15 21:15 21:15 WBC 3.0 L (3.8-10.6) k/uL RBC 2.94 L (4.30-5.90) m/uL Hgb 10.5 L (13.0-17.5) gm/dL Hct 32.5 L (39.0-53.0) % MCV 110.7 H (80.0-100.0) fL MCH 35.8 H (25.0-35.0) pg RDW 16.6 H (11.5-15.5) % Plt Count 54 L (150-450) k/uL Lymphocytes # 0.5 L (1.0-4.8) k/uL PT 14.5 H (9.0-12.0) sec INR 1.6 H (<1.2) Sodium 129 L (137-145) mmol/L Chloride 97 L (98-107) mmol/L Carbon Dioxide 21 L (22-30) mmol/L BUN 6 L (9-20) mg/dL Calcium 8.2 L (8.4-10.2) mg/dL Total Bilirubin 2.9 H (0.2-1.3) mg/dL GGT (15-73) U/L AST 62 H (17-59) U/L Albumin 3.3 L (3.5-5.0) g/dL HDL Cholesterol (40-60) mg/dL Lipase 314 H (23-300) U/L 12/01/17 Range/Units 21:15 WBC (3.8-10.6) k/uL RBC (4.30-5.90) m/uL Hgb (13.0-17.5) gm/dL Hct (39.0-53.0) % MCV (80.0-100.0) fL MCH (25.0-35.0) pg RDW (11.5-15.5) % Plt Count (150-450) k/uL Lymphocytes # (1.0-4.8) k/uL PT (9.0-12.0) sec INR (<1.2) Sodium (137-145) mmol/L Chloride (98-107) mmol/L Carbon Dioxide (22-30) mmol/L BUN (9-20) mg/dL Calcium (8.4-10.2) mg/dL Total Bilirubin (0.2-1.3) mg/dL GGT 134 H (15-73) U/L AST (17-59) U/L Albumin (3.5-5.0) g/dL HDL Cholesterol 35 L (40-60) mg/dL Lipase (23-300) U/L Assessment and Plan (1) Chronic pancreatitis Current Visit: Yes Status: Acute Code(s): K86.1 - OTHER CHRONIC PANCREATITIS SNOMED Code(s): 270557957 (2) Depression Current Visit: Yes Status: Acute Code(s): F32.9 - MAJOR DEPRESSIVE DISORDER , SINGLE EPISODE, UNSPECIFIED SNOMED Code(s): 67993860 (3) Suicidal ideation Current Visit: Yes Status: Acute Code(s): R45.851 - SUICIDAL IDEATIONS SNOMED Code(s): 6830912 (4) Hypertension Current Visit: No Status: Acute Code(s): I10 - ESSENTIAL (PRIMARY) HYPERTENSION SNOMED Code(s): 01020104 Plan: Reconcile home medications. Check CMP in the a.m. If there is element of macrocytosis, we will go ahead and restart multivitamin and thiamine. Check amylase and lipase in a.m. See orders otherwise.
[2017-12-02 21:28] LABS: Hemoglobin A1C 4.6 % (4.0-6.0)
[2017-12-03] MEDS: BISOPROLOL-HCTZ 10-6.25 MG 1 EACH TAB PO SCH (07:59)
[2017-12-03] MEDS: ESCITALOPRAM 5 MG TAB PO SCH (07:59)
[2017-12-03] MEDS: PROTEASE PO SCH ×2 (07:59→20:24)
[2017-12-03] MEDS: LOSARTAN 50 MG TAB PO SCH (07:59)
[2017-12-03] MEDS: LIPASE PO SCH ×2 (07:59→20:24)
[2017-12-03] MEDS: AMYLASE PO SCH ×2 (07:59→20:24)
[2017-12-03 10:07] LABS: ALT 38 U/L (21-72); AST 54 U/L (17-59); Albumin 3.2 g/dL (3.5-5.0); Alkaline Phosphatase 78 U/L (38-126); Anion Gap 9 mmol/L; Blood Urea Nitrogen 9 mg/dL (9-20); Calcium 8.2 mg/dL (8.4-10.2); Carbon Dioxide 24 mmol/L (22-30); Chloride 97 mmol/L (98-107); Glucose 147 mg/dL (74-99); Potassium 4.4 mmol/L (3.5-5.1); Sodium 130 mmol/L (137-145); Total Bilirubin 4.5 mg/dL (0.2-1.3); Total Protein 7.5 g/dL (6.3-8.2)
[2017-12-03] MEDS: FOLIC ACID 1 MG TAB PO SCH (12:12)
[2017-12-03] MEDS: THIAMINE 100 MG TAB PO SCH (12:12)
--- NOTE | 2017-12-03 12:27 | P.PN ---
Progress Note - Text Progress Note Date: 12/03/17 Interval History: Patient is a 57-year-old male who was seen today and he reports that he didn't sleep well last evening, that he is still a little bit suicidal and still feeling depressed. Patient stated that when he met with Dr. Ramos that they had discussed possibly a referral for assisted living or to [facility]. Patient states that he hasn't been working recently but has many resumes and applications out. Patient states that he has no side effects from beginning the Lexapro. Mental Status: Appearance/Attitude: Patient is casually dressed, makes good eye contact and is cooperative. Behavior: Patient does not display any psychomotor agitation or retardation. Speech/Language: Patient's speech is spontaneous of normal volume and rhythm and he is coherent. Thought Process: Patient's thought processes are goal-directed and there is no evidence of loose association or flight of ideas Thought Content: Patient denies any auditory or visual hallucinations and no delusions or paranoid ideation or elicited. Patient states that he still feeling depressed, little bit suicidal and did not sleep well last night. He states that he hasn't been working for some time and has no source of income and has not thought about where he would be living once he was discharged from the hospital. Suicidal/Homicidal Ideation: Patient denies any current homicidal ideation but states that he still a little bit suicidal with no plan or intent to act. Sensorium/Cognition: Patient is alert and oriented to person, place, and time and his recent and remote memory are grossly intact Mood/Affect: Patient's mood remains bland and his affect blunted, he states he still feeling depressed Insight/Judgment: Patient's insight and judgment are fair Assessment: Patient and I had a long discussion regarding his macrocytic anemia , his elevated liver enzymes, his elevated GGT as well as his history of pancreatitis in the past. I discussed with the patient that he needs to avoid all alcohol in the future, and reviewed with him the long-term complications of alcohol use. Patient's repeat liver enzymes have returned to normal, he is on folic acid and thiamine to target his macrocytic anemia. Patient has been attending groups and activities. Plan: Patient continue on Lexapro 5 mg in the morning and will add melatonin 3 mg at bedtime to assist with his sleep. Patient and I discussed the fact that he is not a candidate for assisted living or a half-way as he does not meet the criteria for a half-way and needs private funding to live in assisted living. I stated that he would most likely be referred to a skilled nursing on discharge. Patient requires hospitalization to continue to stabilize his mood.
[2017-12-03] MEDS: MELATONIN 3 MG TABLET PO SCH (20:24)
[2017-12-04] MEDS: ESCITALOPRAM 5 MG TAB PO SCH (08:44)
[2017-12-04] MEDS: BISOPROLOL-HCTZ 10-6.25 MG 1 EACH TAB PO SCH (08:44)
[2017-12-04] MEDS: AMYLASE PO SCH ×2 (08:44→21:02)
[2017-12-04] MEDS: PROTEASE PO SCH ×2 (08:44→21:02)
[2017-12-04] MEDS: LOSARTAN 50 MG TAB PO SCH (08:44)
[2017-12-04] MEDS: LIPASE PO SCH ×2 (08:44→21:02)
--- NOTE | 2017-12-04 11:59 | P.PN ---
Progress Note - Text Progress Note Date: 12/04/17 Interval History: Patient is a 57-year-old male who reports that he didn't sleep well last night and continues to feel lonely and down and helpless. Patient states he still feeling depressed and continues to have suicidal thoughts but no plan or intent to act. He states that he thinks his daughter is working on discharge plans for him. Patient denies any withdrawal symptoms. Patient states that his sleep is still an issue. He reports that he has been attending groups and has found him extremely helpful. Mental Status: Appearance/Attitude: Patient is casually dressed, makes eye contact and is cooperative. Behavior: He does not exhibit any psychomotor agitation or retardation. Speech/Language: Patient's speech is spontaneous of normal volume and rhythm and he is coherent. Thought Process: Patient is goal-directed there is no evidence of loose association or flight of ideas Thought Content: Patient denies any auditory or visual hallucination and no delusions or paranoid ideation or elicited. Patient states that he thinks his daughter is going to help find some living situation for him. He reports he continues to feel lonely, helpless and really doesn't appear to be overly worried about his financial situation. He reports that he is not able to sleep at night and his appetite is good. Suicidal/Homicidal Ideation: Patient reports he continues to have suicidal thoughts but no plan or intent to act and no current homicidal ideation Sensorium/Cognition: Patient is alert and oriented to person, place, and time and his recent and remote memory are grossly intact. Mood/Affect: Patient's mood is depressed, his affect is blunted. Insight/Judgment: His insight and judgment are limited regarding his financial situation, living situation Assessment: Patient reports his sleep is still poor and he is still feeling depressed and lonely, helpless and states that he still is suicidal thoughts but no plan or intent to act. He states that his daughter is going to check on things regarding his discharge living plans. Patient does not appear to be overly concerned about his financial situation. Patient states that he finds the group and activities helpful and has been attending them. It is documented that the patient slept for 6 hours he states he was not sleeping most of the night. Plan: Will increase patient's Lexapro to 10 mg to target his mood and continue with melatonin 3 mg at bedtime to assist with sleep. I again discussed with the patient that as he has no source of financial support that he would most likely be discharged to a care home. Patient had no response either verbally or emotionally to this. Patient continues to require hospitalization to further stabilize his mood.
[2017-12-04] MEDS: THIAMINE 100 MG TAB PO SCH (12:07)
[2017-12-04] MEDS: FOLIC ACID 1 MG TAB PO SCH (12:07)
[2017-12-04] MEDS: MELATONIN 3 MG TABLET PO SCH (21:02)
[2017-12-05] MEDS: AMYLASE PO SCH ×2 (08:51→20:55)
[2017-12-05] MEDS: BISOPROLOL-HCTZ 10-6.25 MG 1 EACH TAB PO SCH (08:51)
[2017-12-05] MEDS: PROTEASE PO SCH ×2 (08:51→20:55)
[2017-12-05] MEDS: LIPASE PO SCH ×2 (08:51→20:55)
[2017-12-05] MEDS: LOSARTAN 50 MG TAB PO SCH (08:51)
[2017-12-05] MEDS: ESCITALOPRAM 10 MG TAB PO SCH (08:51)
[2017-12-05] MEDS: THIAMINE 100 MG TAB PO SCH (12:17)
[2017-12-05] MEDS: FOLIC ACID 1 MG TAB PO SCH (12:17)
--- NOTE | 2017-12-05 15:43 | P.PN ---
Progress Note - Text Progress Note Date: 12/05/17 Interval History: Patient is a 57-year-old male who was seen today patient reports that he slept well last night, is eating well and has been attending groups and activities. Patient states that his daughter is still looking into things such as the [facility] housing, as he states he has no idea where he will live upon discharge. Patient states that he is not having any current suicidal ideation but is still feeling depressed. Patient states that he is blood pressure was better today and he felt a little dizzy earlier but states that is better. Mental Status: Appearance/Attitude: Patient is casually dressed, makes good eye contact and was cooperative Behavior: Patient does not exhibit any psychomotor agitation or retardation. Speech/Language: Patient's speech is spontaneous of normal volume and rhythm and he is coherent. Thought Process: Patient is goal-directed there is no evidence of loose association or flight of ideas Thought Content: Patient denies any auditory or visual hallucinations and no delusions or paranoid ideation or elicited. Patient states that his daughter is looking for housing solutions for him, he states that he isn't sure what he is going to do. Patient states that he felt a little dizzy this morning but his blood pressure has been better. Patient states that he slept better last night with the melatonin. He reports that he is eating well. Suicidal/Homicidal Ideation: Patient denies any current suicidal or homicidal ideation Sensorium/Cognition: Patient is alert and oriented to person, place, and time and his recent and remote memory are grossly intact Mood/Affect: Patient's mood is still depressed and his affect is blunted Insight/Judgment: Patient's insight and judgment are fair Assessment: Patient and I again discussed macrocytic anemia, consequences of alcohol use and the patient discussed that his daughter was looking for housing for him as he has no solution to the fact that he has no housing. Patient states that he has numerous resumes and applications out for jobs. He reports no suicidal ideation but still feels depressed. He states his sleep is much improved. Patient is attending groups and activities. Plan: Patient continues on Lexapro 10 mg and melatonin 3 mg daily to target his mood and sleep. Patient has no housing at this time and will probably need a referral to shelters on discharge. Patient does not wish any referral for inpatient or outpatient alcohol rehab stating that he can stop on his own. I would anticipate discharge early next week.
[2017-12-05] MEDS: MELATONIN 3 MG TABLET PO SCH (20:55)
[2017-12-06] MEDS: LOSARTAN 50 MG TAB PO SCH (09:39)
[2017-12-06] MEDS: BISOPROLOL-HCTZ 10-6.25 MG 1 EACH TAB PO SCH (09:39)
[2017-12-06] MEDS: PROTEASE PO SCH ×2 (09:39→21:37)
[2017-12-06] MEDS: AMYLASE PO SCH ×2 (09:39→21:37)
[2017-12-06] MEDS: LIPASE PO SCH ×2 (09:39→21:37)
[2017-12-06] MEDS: ESCITALOPRAM 10 MG TAB PO SCH (09:39)
[2017-12-06] MEDS: FOLIC ACID 1 MG TAB PO SCH (12:36)
[2017-12-06] MEDS: THIAMINE 100 MG TAB PO SCH (12:36)
--- NOTE | 2017-12-06 20:45 | P.PN ---
Progress Note - Text Progress Note Date: 12/06/17 IDENTIFICATION DATA 57-year-old male with no prior psychiatric treatment history admitted due to suicidal ideations and depression. INTERVAL HISTORY: He is tolerating his medications well. No side effects reported. He is still depressed and has ongoing suicidal ideations. He reports his sleep has improved to some extent with melatonin. He reports good appetite. He reports going to groups has been helpful to him MENTAL STATUS EXAMINATION: Patient is 57 year old man appears in fair marginal grooming and hygiene. His speech and thought process are linear and goal directed. mood is reported as sad and affect appropriate. he denies auditory or visual hallucinations. denies paranoia. He is alert and oriented X 4. ASSESSMENT AND PLAN: Continue current treatment.
[2017-12-06] MEDS: MELATONIN 3 MG TABLET PO SCH (21:37)
[2017-12-07] MEDS: AMYLASE PO SCH ×2 (08:52→20:24)
[2017-12-07] MEDS: ESCITALOPRAM 10 MG TAB PO SCH (08:52)
[2017-12-07] MEDS: PROTEASE PO SCH ×2 (08:52→20:24)
[2017-12-07] MEDS: LIPASE PO SCH ×2 (08:52→20:24)
[2017-12-07] MEDS: BISOPROLOL-HCTZ 10-6.25 MG 1 EACH TAB PO SCH (08:52)
[2017-12-07] MEDS: LOSARTAN 50 MG TAB PO SCH (08:56)
[2017-12-07] MEDS: THIAMINE 100 MG TAB PO SCH (13:25)
[2017-12-07] MEDS: FOLIC ACID 1 MG TAB PO SCH (13:25)
--- NOTE | 2017-12-07 15:30 | P.PN ---
Progress Note - Text Progress Note Date: 12/07/17 IDENTIFICATION DATA 57-year-old male with no prior psychiatric treatment history admitted due to suicidal ideations and depression. INTERVAL HISTORY: He denies sucidal ideations today but continues reports feeling depressed. He also reports not feeling safe to go home. He is tolerating his medications well. He reports to have slept only for two hours yesterday night and claims he stated awake most of the night and could not return back to sleep for unknown reasons. Discussed with the patient if it is just an isolated event or if it contijnues to be problem then his dose of melatonin could be increased as he seems to have responded well to it. He also reports having low blood pressure readings and feeling lightheaded at times. Discussed with t he patient about how diet changes could also affect his blood pressure. However if his reading continue to reamin low and if he is symptomatic he should follow up with primary care physician. He expressed his understanding . No behavioral problems reported. He is adjusting well and gets along well with his pers and staff. He reports good appetite. He reports going to all his groups. MENTAL STATUS EXAMINATION: Patient is 57 year old man appears in fair marginal grooming and hygiene. His speech and thought process are linear and goal directed. mood is reported as sad and affect appropriate. he denies auditory or visual hallucinations. denies paranoia. He is alert and oriented X 4. His insight and judgment are fair. ASSESSMENT AND PLAN: Continue current treatment.
[2017-12-07] MEDS: MELATONIN 3 MG TABLET PO SCH (20:25)
[2017-12-08] MEDS: ESCITALOPRAM 10 MG TAB PO SCH (09:12)
[2017-12-08] MEDS: LOSARTAN 50 MG TAB PO SCH (09:12)
[2017-12-08] MEDS: BISOPROLOL-HCTZ 10-6.25 MG 1 EACH TAB PO SCH (09:12)
[2017-12-08] MEDS: LIPASE PO SCH ×2 (09:13→20:08)
[2017-12-08] MEDS: AMYLASE PO SCH ×2 (09:13→20:08)
[2017-12-08] MEDS: PROTEASE PO SCH ×2 (09:13→20:08)
[2017-12-08] MEDS: FOLIC ACID 1 MG TAB PO SCH (12:33)
[2017-12-08] MEDS: THIAMINE 100 MG TAB PO SCH (12:33)
--- NOTE | 2017-12-08 16:36 | P.PN ---
Progress Note - Text Progress Note Date: 12/08/17 Clinical Problems: Major depressive disorder single episode without psychotic features, lack of housing, lack of employment, financial problems Interim history: I reviewed the medical record and interviewed the patient. He is a 57-year-old male admitted to the [facility] voluntarily with complaints of depression and suicidal ideation. He is becoming increasing depressed and developed suicidal ideation prior to admission due to mounting financial problems. He was recently evicted from his apartment for failure to pay his rent. He has no income and has been unable to find employment. He complained of continued feelings of depression but denied having suicidal thoughts since admission to the unit. He feels overwhelmed by his multiple psychosocial problems. He alleges that he has no family or friends with whom he may live and requests assistance with some form of placement. I explained that our only option would be to refer him to a local assisted. He denied side effects to the current dose of Lexapro (10 mg daily). He complained of intermittent problems with insomnia, decreased energy, persistent subjective anxiety and poor appetite. He denied psychotic symptoms. Mental status exam: He presented as a casually groomed moderately obese 57-year- old male who was pleasant on approach. He made eye contact and attended to the interview. He had healed scars from facial acne but no prominent physical maladies. He had a depressed facial expression. He was alert and oriented to person, place and time. He showed psychomotor retardation but no abnormal movements. His speech was spontaneous with decreased rate, rhythm and volume. His affect was depressed and not reactive. He denied suicidal ideation or wishes. He denied homicidal ideation. He expressed continued feelings of hopelessness, helplessness and worthlessness. He ruminated about his multiple psychosocial problems and repeatedly expressed feelings of hopelessness. He did not express ideas reference, paranoid ideation or delusional thoughts. His thinking was abstract and associations were coherent and, logical and goal directed. He denied hallucinations and did not appear to responding to internal stimuli. Assessment: He continues demonstrate moderately severe symptoms of depression without current suicidal ideation, plan or intent. He had benefited continue inpatient psychiatric hospitalization and social work assistance to dressed his psychosocial problems. Plan: Continue inpatient psychiatric hospitalization. Continue seeing precautions. Continue Lexapro 10 mg per day and titrated according to clinical response and tolerance. Encouraged continued participation in therapeutic groups and activities. Evaluate clinical status response to treatment daily basis.
[2017-12-08] MEDS: MELATONIN 3 MG TABLET PO SCH (20:53)
[2017-12-09] MEDS: LOSARTAN 50 MG TAB PO SCH (09:49)
[2017-12-09] MEDS: BISOPROLOL-HCTZ 10-6.25 MG 1 EACH TAB PO SCH (09:49)
[2017-12-09] MEDS: ESCITALOPRAM 10 MG TAB PO SCH (09:49)
[2017-12-09] MEDS: LIPASE PO SCH ×2 (09:50→20:09)
[2017-12-09] MEDS: PROTEASE PO SCH ×2 (09:50→20:09)
[2017-12-09] MEDS: AMYLASE PO SCH ×2 (09:50→20:09)
[2017-12-09] MEDS: FOLIC ACID 1 MG TAB PO SCH (12:39)
[2017-12-09] MEDS: THIAMINE 100 MG TAB PO SCH (12:39)
--- NOTE | 2017-12-09 15:13 | P.PN ---
Progress Note - Text Progress Note Date: 12/09/17 Clinical Problems: Major depressive disorder single episode without psychotic features, lack of housing, lack of employment, financial problems Interim history: Reviewed the medical record, interviewed the patient and discuss his treatment and treatment plan during team meeting. He complained of continued feelings depression, hopelessness and helplessness. He spoke with his daughter, who recently returned from holiday, and hopes that she will be a little assist with finding housing. He continues to feel overwhelmed by his multiple social problems and is afraid of a referral to a homeless longterm. I explained that unless his family were to intervene our only option would be a referral to the home of longterm. He feels that life is not worth living and at times wishing that he were but denied specific suicidal intent or plan. He continues to have difficulty falling and staying asleep. He has decreased energy and subjective tension. Mental status exam: He presented as an obese elderly male who was pleasant on approach. He made eye contact and attended the interview. He had no prominent physical Modalities. He had a depressed facial expression. He showed psychomotor retardation but no abnormal movements. He had a slow but steady gait. His speech was spontaneous with decreased rate, rhythm and volume. He had no articulation difficulties. His affect was depressed and not reactive. He described wishes but denied specific suicidal ideation. He continued to express feelings of hopelessness, helplessness and worthlessness. He ruminated about his multiple psychosocial problems including lack of housing. He did not express ideas reference, paranoid ideation or delusions. His thinking was abstract and his associations were coherent and logical. He denied hallucinations and did not appear to be responding to internal stimuli. Assessment: He continues to have symptoms of depression and depressive cognitions. The symptoms have not improved with a current dose of Lexapro. There is no evidence of psychosis. Plan: Continue inpatient psychiatric hospitalization. Increase Lexapro to 20 mg daily. Continue with antihypertensive medications as recommended by medicine service. Continue melatonin 3 mg at bedtime for sleep. Encouraged continued participation in therapeutic groups and activities. Evaluate clinical status response to treatment daily basis.
[2017-12-09 15:17] LABS: Appearance,Urine Clear (Clear); Bilirubin,Urine Negative (Negative); Blood,Urine Negative (Negative); Color,Urine Yellow; Glucose,Urine (UA) 3+ (Negative); Ketones,Urine Negative (Negative); Leukocyte Esterase,Urine Negative (Negative); Nitrite,Urine Negative (Negative); PH, Urine 7.5 (5.0-8.0); Protein,Urine Negative (Negative)
[2017-12-09] MEDS: MELATONIN 3 MG TABLET PO SCH (20:56)
[2017-12-10] MEDS: LIPASE PO SCH ×2 (08:54→21:17)
[2017-12-10] MEDS: LOSARTAN 50 MG TAB PO SCH (08:54)
[2017-12-10] MEDS: BISOPROLOL-HCTZ 10-6.25 MG 1 EACH TAB PO SCH (08:54)
[2017-12-10] MEDS: AMYLASE PO SCH ×2 (08:54→21:17)
[2017-12-10] MEDS: ESCITALOPRAM 20 MG TAB PO SCH (08:54)
[2017-12-10] MEDS: PROTEASE PO SCH ×2 (08:54→21:17)
[2017-12-10] MEDS: THIAMINE 100 MG TAB PO SCH (12:32)
[2017-12-10] MEDS: FOLIC ACID 1 MG TAB PO SCH (12:32)
--- NOTE | 2017-12-10 14:57 | P.PN ---
Progress Note - Text Progress Note Date: 12/10/17 Clinical Problems: Major depressive disorder single episode without psychotic features, lack of housing, lack of employment, lack of income, financial problems Interim history: I reviewed the medical record, interviewed the patient and discuss his treatment and treatment plan during team meeting. His overwhelming concern is lack of housing. He spoke with his daughter. She has spoken with several agencies about housing alternatives. He is apprehensive about living in a intermediate. He denied side effects to the increased dose of Lexapro. He slept 7 hours last night and is attended most therapeutic groups and activities. Mental status exam: He presented as casually dressed and groomed 57-year-old male who is moderately obese. He made eye contact and attended to interview. He had an anxious facial expression. He showed slight psychomotor retardation but no abnormal movements. Her speech was spontaneous with decreased rate and rhythm. His affect was depressed and anxious. He denied suicidal ideation or wishes. He denied homicidal ideation. He expresses feelings of helplessness regarding his financial and housing problems. He did not express ideas reference, paranoid ideation or delusional thoughts. Distinct was abstract and associations were logical, coherent and goal directed. Assessment: He remains overwhelmed by his social problems and appears frightened by the prospect of living in a homeless intermediate. Unfortunately, a family or friends or unwilling to house him, the only option would have would be discharged to a local intermediate. Plan: Continue inpatient hospitalization. Continue safety precautions. I referred him to his social professionals to again discuss housing options. Continue Lexapro 20 mg daily. Consider discharge on 12/11/2017. Continue participation in therapeutic groups and activities. Evaluate clinical status response to treatment daily basis.
[2017-12-10] MEDS: MELATONIN 3 MG TABLET PO SCH (21:17)
[2017-12-11 06:35] VITALS: TEMP 98
[2017-12-11] MEDS: BISOPROLOL-HCTZ 10-6.25 MG 1 EACH TAB PO SCH (09:08)
[2017-12-11] MEDS: PROTEASE PO SCH (09:08)
[2017-12-11] MEDS: LOSARTAN 50 MG TAB PO SCH (09:08)
[2017-12-11] MEDS: AMYLASE PO SCH (09:08)
[2017-12-11] MEDS: LIPASE PO SCH (09:08)
[2017-12-11] MEDS: ESCITALOPRAM 20 MG TAB PO SCH (09:08)
[2017-12-11] MEDS: FOLIC ACID 1 MG TAB PO SCH (12:18)
[2017-12-11] MEDS: THIAMINE 100 MG TAB PO SCH (12:18)
[2017-12-11 12:22] VITALS: BP 144/64; PULSE 64; RESP 16
--- NOTE | 2017-12-11 13:49 | P.DS ---
Providers Date of admission: 12/02/17 00:05 Attending physician: Tariq Matthews MD Consults: 12/02/17 00:12 Consult Physician Routine Consulting Provider: Noman Ramos Consult Reason/Comments: H&P for mental health admission Do you want consulting provider notified?: Yes, Notify in am Primary care physician: Noman Ramos - Discharge Diagnosis(es) (1) Suicidal ideation Current Visit: Yes Status: Resolved Priority: Medium (2) Depression Current Visit: Yes Status: Chronic Priority: Medium (3) Housing lack Current Visit: Yes Status: Chronic Priority: High (4) Financial problems Current Visit: Yes Status: Chronic Priority: High (5) Chronic pancreatitis Current Visit: Yes Status: Chronic Priority: Low Hospital Course: The patient is a 57-year-old male who presented to the psychiatric unit with complaints of chest pain, depression and suicidal ideation. He was initially admitted to medicine for evaluation of the chest pain then transferred to the psychiatric unit. Patient complained of depression and symptoms depression including feelings of hopelessness and helplessness. Depression has worsened with mounting financial problems. He lost his job 5-6 years ago and has been supporting himself with an inheritance. He is exhausted the inheritance and was evicted from his apartment. He has no income and no place to live. He is made to the psychiatric unit initially under the care of Dr. Silva. We provided a a biopsychosocial assessment. The telesales consultant play therapist completed initial physical exam and medical history. The play therapist diagnosed chronic pancreatitis, hypertension and recommended to continue his outpatient medications including Ziac 10-6.25, Zenpep DR 5000 units twice a day and Cozaar 50 mg daily. We treated his depressive symptoms with Lexapro 10 mg a day and titrated final dose to 20 mg daily and prescribed melatonin 3 mg at bedtime for sleep. He participated actively in therapeutic groups and activities. He posed no management problem and required no when necessary medications for behavioral dyscontrol. The patient's primary concern was his lack of income and housing. The social service manager spoke with his daughter who related that the patient had "burned his bridges" and the family is unable to provide him with assistance We explained that if he is unable to live with friends or family that our only resource is a referral to the local fdc. He was very anxious about the thought of going into fdc. At the time of discharge she presented as a mildly obese 57-year-old male who was pleasant on approach. He made eye contact and attended to the interview. He had healed acne scars on his face but no prominent physical abnormalities. He had an anxious facial expression. He was alert and oriented to person, place and time. He showed slight psychomotor retardation but no abnormal movements. His speech was spontaneous with slight decrease in rate and rhythm. His affect was anxious but stable and appropriate. He denied suicidal ideation or wishes. He denied homicidal ideation. He did not express feelings of hopelessness and helplessness. He ruminated about his multiple social problems and his concerns about living in a fdc. He did not express ideas reference, paranoid ideation or delusional thoughts. His thinking was abstract and associations were coherent, logical and goal directed. He denied hallucinations and did not appear to be responding to internal stimuli. Patient Condition at Discharge: Stable Plan - Discharge Summary Discharge Rx Participant: No New Discharge Prescriptions: New Bisoprolol-Hctz 10-6.25 mg [Ziac 10-6.25 MG] 1 each PO DAILY #30 tab Escitalopram [Lexapro] 20 mg PO DAILY #30 tab Lipase/Protease/Amylase [Jordan Dozier 5,000 Units Capsule] 1 each PO BID #60 capsule. Melatonin 3 mg PO HS #30 tablet Continue Losartan [Cozaar] 50 mg PO DAILY #30 tab Discontinued Bisoprolol-Hctz 10-6.25 mg [Ziac 10-6.25 MG] 1 tab PO DAILY Lipase/Protease/Amylase [Bhupinder Dozier 6,000 Units Capsule] 1 each PO BID #60 capsule. Discharge Medication List Bisoprolol-Hctz 10-6.25 mg [Ziac 10-6.25 MG] 1 each PO DAILY #30 tab 12/11/17 [ Rx] Escitalopram [Lexapro] 20 mg PO DAILY #30 tab 12/11/17 [Rx] Lipase/Protease/Amylase [Jordan Dozier 5,000 Units Capsule] 1 each PO BID #60 capsule. 12/11/17 [Rx] Losartan [Cozaar] 50 mg PO DAILY #30 tab 12/11/17 [Rx] Melatonin 3 mg PO HS #30 tablet 12/11/17 [Rx] Follow up Appointment(s)/Referral(s): [facility] [Outside] - 12/17/17 8:00 pm (Tariq Almaguer) Noman Ramos MD [Primary Care Provider] - 1-2 days Patient Instructions/Handouts: Depression (DC), Suicide Prevention (DC) Activity/Diet/Wound Care/Special Instructions: Activity and Diet as tolerated. Avoid the use of street drugs and alcohol. Take all medications as prescribed, when you are in need of refills contact your medical doctor or psychiatrist. Please go to all scheduled outpatient appointments for aftercare treatment. If symptoms return or worsen you can call the crisis line @ and/or return to the nearest emergency room for evaluation. Discharge Disposition: HOME SELF-CARE
== END 2017-12-11 14:32 | disposition home or self-care (01) | DRG 881 ==
LOC: EC 20:38 → 3MHU 12-02 00:05
PROVIDERS: ADMIT Psychiatry & Neurology Psychiatry; ATTEND Psychiatry & Neurology Psychiatry
DX: F32.9 Major depressive disorder, single episode, unspecified (principal); K86.1 Other chronic pancreatitis; R45.851 Suicidal ideations; D53.9 Nutritional anemia, unspecified; E66.9 Obesity, unspecified; F10.20 Alcohol dependence, uncomplicated; F41.9 Anxiety disorder, unspecified; G47.00 Insomnia, unspecified; I10 Essential (primary) hypertension; K76.0 Fatty (change of) liver, not elsewhere classified; R45.850 Homicidal ideations; Z79.899 Other long term (current) drug therapy; Z82.49 Family history of ischemic heart disease and other diseases of the circulatory system; Z59.0 Homelessness; Z88.8 Allergy status to other drugs, medicaments and biological substances; Z56.0 Unemployment, unspecified
CPT/HCPCS: 36415; 71046; 80053; 80061; 80306; 80320; 81003; 82150; 82550; 82553; 82977; 83036; 83690; 83735; 83880; 84443; 84484; 85025; 85610; 85730; 93005; 99285

== ENCOUNTER 2018-05-23 09:45 | Inpatient (IN) | payer MEDICAID, OTHER ==
[2018-05-23] MEDS ORDERED: MORPHINE SULFATE 4 MG/ML SYRINGE IVP STA (10:08)
[2018-05-23] MEDS ORDERED: ACETAMINOPHEN TAB 500 MG TAB PO STA (10:08)
[2018-05-23] MEDS ORDERED: ONDANSETRON 4 MG/2 ML VIAL IVP STA (10:08)
--- NOTE | 2018-05-23 10:17 | ED ---
Extremity Problem HPI - General Source: patient, RN notes reviewed Mode of arrival: ambulatory Limitations: no limitations <Rodrigo Elaine - Last Filed: 05/23/18 12:05> <Wilfrid Lees - Last Filed: 05/23/18 12:12> - General Chief complaint: Extremity Problem,Nontraumatic Stated complaint: gout pain Time Seen by Provider: 05/23/18 10:00 - History of Present Illness Initial comments: 58-year-old male presents emergency Department chief complaint of left foot, leg pain. Patient states this started and has progressed patient states she's had no injury noticed some swelling. Patient states the pain is severe to the point where he cannot ambulate on it. Patient also noted to have a fever today. Patient states he just generalized feels sick. Patient states he has a history of hypertension no other significant past medical history. Patient denies any redness to his leg no history DVT. Denies chest pain or shortness of breath. Patient states he is shaking from his fever. (Rodrigo Elaine) - Related Data Previous Rx's Medication Instructions Recorded Bisoprolol-Hctz 10-6.25 mg [Ziac 1 each PO DAILY #30 tab 12/11/17 10-6.25 MG] Escitalopram [Lexapro] 20 mg PO DAILY #30 tab 12/11/17 Lipase/Protease/Amylase [Zenpep Dr 1 each PO BID #60 capsule.dr 12/11/17 5,000 Unit Capsule] Losartan [Cozaar] 50 mg PO DAILY #30 tab 12/11/17 Melatonin 3 mg PO HS #30 tablet 12/11/17 Allergies Allergy/AdvReac Type Severity Reaction Status Date / Time lisinopril AdvReac Cough Verified 12/02/17 01:42 Review of Systems ROS Other: All systems not noted in ROS Statement are negative. <Rodrigo Elaine - Last Filed: 05/23/18 12:05> ROS Other: All systems not noted in ROS Statement are negative. <Wilfrid Lees - Last Filed: 05/23/18 12:12> ROS Statement: Those systems with pertinent positive or pertinent negative responses have been documented in the HPI. Past Medical History Past Medical History: Hypertension Additional Past Medical History / Comment(s): pancreatitis History of Any Multi-Drug Resistant Organisms: None Reported Past Surgical History: No Surgical Hx Reported Past Anesthesia/Blood Transfusion Reactions: No Reported Reaction Past Psychological History: No Psychological Hx Reported Smoking Status: Never smoker Past Alcohol Use History: None Reported Past Drug Use History: None Reported - Past Family History Mother Family Medical History: Hypertension Father Family Medical History: CVA/TIA <ReedRodrigo canales - Last Filed: 05/23/18 12:05> General Exam Limitations: no limitations General appearance: alert, in no apparent distress Head exam: Present: atraumatic, normocephalic, normal inspection Neck exam: Present: normal inspection, full ROM. Absent: tenderness, meningismus, lymphadenopathy Respiratory exam: Present: normal lung sounds bilaterally. Absent: respiratory distress, wheezes, rales, rhonchi, stridor Cardiovascular Exam: Present: regular rate, normal rhythm, normal heart sounds. Absent: systolic murmur, diastolic murmur, rubs, gallop, clicks Extremities exam: Present: other (Left foot, left leg notable swelling, minimal erythema, pedal pulses bilaterally there is diffuse tenderness with palpation the left foot, left ankle region swelling extends to the left knee) Neurological exam: Present: alert, oriented X3, CN II-XII intact Skin exam: Present: warm, dry, intact, normal color. Absent: rash <Rodrigo Elaine - Last Filed: 05/23/18 12:05> Course <Rodrigo Elaine - Last Filed: 05/23/18 12:05> <Wilfrid Lees - Last Filed: 05/23/18 12:12> Vital Signs 05/23/18 09:48 Temperature 100.3 F H Pulse Rate 96 Respiratory 18 Rate Blood Pressure 156/68 O2 Sat by Pulse 97 Oximetry - Reevaluation(s) Reevaluation #1: 05/23/18 12:11 Patient was reexamined and reevaluated by myself, Dr. Lees. Patient resting comfortably in bed. Patient states discomfort has been severe and he is unable to walk on the extremity. Patient's left foot does have moderate swelling. There is some mild erythema. There is some mild erythema of the lower leg without significant swelling. There is mild tenderness to palpation. Pedal pulses intact. Cap refill less than 2 seconds. Results reviewed. Case was discussed with practitioner in detail, I did review and agree with all. Findings. This includes all diagnostic interpretations and treatment plan. Case was discussed in detail with Dr. Heart, who will admit covering for Dr. Ramos. (Wilfrid Lees) Medical Decision Making - Lab Data Result diagrams: 05/23/18 11:00 05/23/18 11:00 <Rodrigo Elaine - Last Filed: 05/23/18 12:05> - Lab Data Result diagrams: 05/23/18 11:00 05/23/18 11:00 <Wilfrid Lees - Last Filed: 05/23/18 12:12> - Medical Decision Making 58-year-old male present emergency from for left leg pain and swelling. Patient is negative for DVT, x-ray show soft tissue swelling there is mild erythema possible early cellulitis. Patient has have noted thrombocytopenia, elevated lactic acid. Patient be admitted for IV antibiotics, intractable pain (Rodrigo Elaine) - Lab Data Lab Results 05/23/18 05/23/18 05/23/18 Range/Units 11:00 11:00 11:00 WBC 4.8 (3.8-10.6) k/uL RBC 3.33 L (4.30-5.90) m/uL Hgb 10.6 L (13.0-17.5) gm/dL Hct 31.3 L (39.0-53.0) % MCV 94.1 (80.0-100.0) fL MCH 31.8 (25.0-35.0) pg MCHC 33.8 (31.0-37.0) g/dL RDW 16.4 H (11.5-15.5) % Plt Count 49 L (150-450) k/uL Neutrophils % 79 % Lymphocytes % 7 % Monocytes % 10 % Eosinophils % 1 % Basophils % 0 % Neutrophils # 3.8 (1.3-7.7) k/uL Lymphocytes # 0.3 L (1.0-4.8) k/uL Monocytes # 0.5 (0-1.0) k/uL Eosinophils # 0.1 (0-0.7) k/uL Basophils # 0.0 (0-0.2) k/uL Manual Slide Review Performed Anisocytosis Slight PT (9.0-12.0) sec INR (<1.2) APTT (22.0-30.0) sec Sodium 132 L (137-145) mmol/L Potassium 4.5 (3.5-5.1) mmol/L Chloride 102 (98-107) mmol/L Carbon Dioxide 21 L (22-30) mmol/L Anion Gap 9 mmol/L BUN 18 (9-20) mg/dL Creatinine 0.58 L (0.66-1.25) mg/dL Est GFR (CKD-EPI)AfAm >90 (>60 ml/min/1.73 sqM) Est GFR (CKD-EPI)NonAf >90 (>60 ml/min/1.73 sqM) Glucose 101 H (74-99) mg/dL Plasma Lactic Acid Mason 2.1 H* (0.7-2.0) mmol/L Uric Acid 3.0 L (3.5-8.5) mg/dL Calcium 8.4 (8.4-10.2) mg/dL Total Bilirubin 3.9 H (0.2-1.3) mg/dL AST 40 (17-59) U/L ALT 30 (21-72) U/L Alkaline Phosphatase 87 (38-126) U/L C-Reactive Protein 31.4 H (<10.0) mg/L Total Protein 7.3 (6.3-8.2) g/dL Albumin 3.1 L (3.5-5.0) g/dL Urine Color Urine Appearance (Clear) Urine pH (5.0-8.0) Ur Specific [place] (1.001-1.035) Urine Protein (Negative) Urine Glucose (UA) (Negative) Urine Ketones (Negative) Urine Blood (Negative) Urine Nitrite (Negative) Urine Bilirubin (Negative) Urine Urobilinogen (<2.0) mg/dL Ur Leukocyte Esterase (Negative) Urine RBC (0-5) /hpf Urine WBC (0-5) /hpf Urine Mucus (None) /hpf Influenza Type A RNA (Not Detectd) Influenza Type B (PCR) (Not Detectd) 05/23/18 05/23/18 05/23/18 Range/Units 11:00 11:00 11:00 WBC (3.8-10.6) k/uL RBC (4.30-5.90) m/uL Hgb (13.0-17.5) gm/dL Hct (39.0-53.0) % MCV (80.0-100.0) fL MCH (25.0-35.0) pg MCHC (31.0-37.0) g/dL RDW (11.5-15.5) % Plt Count (150-450) k/uL Neutrophils % % Lymphocytes % % Monocytes % % Eosinophils % % Basophils % % Neutrophils # (1.3-7.7) k/uL Lymphocytes # (1.0-4.8) k/uL Monocytes # (0-1.0) k/uL Eosinophils # (0-0.7) k/uL Basophils # (0-0.2) k/uL Manual Slide Review Anisocytosis PT 13.4 H (9.0-12.0) sec INR 1.3 H (<1.2) APTT 28.8 (22.0-30.0) sec Sodium (137-145) mmol/L Potassium (3.5-5.1) mmol/L Chloride (98-107) mmol/L Carbon Dioxide (22-30) mmol/L Anion Gap mmol/L BUN (9-20) mg/dL Creatinine (0.66-1.25) mg/dL Est GFR (CKD-EPI)AfAm (>60 ml/min/1.73 sqM) Est GFR (CKD-EPI)NonAf (>60 ml/min/1.73 sqM) Glucose (74-99) mg/dL Plasma Lactic Acid Mason (0.7-2.0) mmol/L Uric Acid (3.5-8.5) mg/dL Calcium (8.4-10.2) mg/dL Total Bilirubin (0.2-1.3) mg/dL AST (17-59) U/L ALT (21-72) U/L Alkaline Phosphatase (38-126) U/L C-Reactive Protein (<10.0) mg/L Total Protein (6.3-8.2) g/dL Albumin (3.5-5.0) g/dL Urine Color Light Brown Urine Appearance Clear (Clear) Urine pH 6.0 (5.0-8.0) Ur Specific [place] 1.032 (1.001-1.035) Urine Protein 1+ H (Negative) Urine Glucose (UA) Negative (Negative) Urine Ketones Negative (Negative) Urine Blood Negative (Negative) Urine Nitrite Negative (Negative) Urine Bilirubin 1+ H (Negative) Urine Urobilinogen 6.0 (<2.0) mg/dL Ur Leukocyte Esterase Negative (Negative) Urine RBC 3 (0-5) /hpf Urine WBC 2 (0-5) /hpf Urine Mucus Many H (None) /hpf Influenza Type A RNA Not Detected (Not Detectd) Influenza Type B (PCR) Not Detected (Not Detectd) Disposition <Rodrigo Elaine - Last Filed: 05/23/18 12:05> <Wilfrid Lees - Last Filed: 05/23/18 12:12> Clinical Impression: Thrombocytopenia, Anemia, Left leg cellulitis, Lactic acidosis, Sepsis Disposition: ADMITTED IP TO THIS HOSP Condition: Fair Referrals: Noman Ramos MD [Primary Care Provider] - 1-2 days
[2018-05-23 11:22] LABS: Anisocytosis Slight; Basophils % (A) 0 %; Eosinophils # (A) 0.1 k/uL (0-0.7); Eosinophils % (A) 1 %; HCT 31.3 % (39.0-53.0); HGB 10.6 gm/dL (13.0-17.5); Lymphocytes # (A) 0.3 k/uL (1.0-4.8); Lymphocytes % (A) 7 %; MCH 31.8 pg (25.0-35.0); MCHC 33.8 g/dL (31.0-37.0); MCV 94.1 fL (80.0-100.0); Monocytes # (A) 0.5 k/uL (0-1.0); Monocytes % (A) 10 %; Neutrophils # (A) 3.8 k/uL (1.3-7.7); Neutrophils % (A) 79 %; RBC 3.33 m/uL (4.30-5.90); RDW 16.4 % (11.5-15.5); WBC 4.8 k/uL (3.8-10.6)
[2018-05-23 11:25] LABS: Appearance,Urine Clear (Clear); Bilirubin,Urine 1+ (Negative); Blood,Urine Negative (Negative); Color,Urine Light Brown; Glucose,Urine (UA) Negative (Negative); Ketones,Urine Negative (Negative); Leukocyte Esterase,Urine Negative (Negative); Mucus,Urine Many /hpf; Nitrite,Urine Negative (Negative); Protein,Urine 1+ (Negative); RBC,Urine 3 /hpf (0-5); Specific Gravity,Urine 1.032 (1.001-1.035)
--- NOTE | 2018-05-23 11:25 | US ---
EXAMINATION TYPE: US venous doppler duplex LE LT DATE OF EXAM: 05/23/2018 10:09 AM COMPARISON: NONE CLINICAL HISTORY: Pain. SIDE PERFORMED: Left TECHNIQUE: The lower extremity deep venous system is examined utilizing real time linear array sonog patrick with graded compression, doppler sonography and color-flow sonography. VESSELS IMAGED: External Iliac Vein (EIV) Common Femoral Vein Deep Femoral Vein Greater Saphenous Vein * Femoral Vein Popliteal Vein Small Saphenous Vein * Proximal Calf Veins (* superficial vessels) Left Leg: Negative for DVT IMPRESSION: No evidence for DVT at this time.
[2018-05-23 11:34] LABS: ALT 30 U/L (21-72); AST 40 U/L (17-59); Albumin 3.1 g/dL (3.5-5.0); Alkaline Phosphatase 87 U/L (38-126); Anion Gap 9 mmol/L; Blood Urea Nitrogen 18 mg/dL (9-20); C Reactive Protein 31.4 mg/L (<10.0); Calcium 8.4 mg/dL (8.4-10.2); Carbon Dioxide 21 mmol/L (22-30); Chloride 102 mmol/L (98-107); Glucose 101 mg/dL (74-99); Potassium 4.5 mmol/L (3.5-5.1); Sodium 132 mmol/L (137-145); Total Bilirubin 3.9 mg/dL (0.2-1.3); Total Protein 7.3 g/dL (6.3-8.2)
[2018-05-23 11:35] LABS: INR 1.3 (<1.2); Prothrombin Time 13.4 sec (9.0-12.0)
[2018-05-23 11:36] LABS: Partial Thromboplastin Time 28.8 sec (22.0-30.0)
--- NOTE | 2018-05-23 11:44 | XR ---
EXAMINATION TYPE: XR foot limited LT DATE OF EXAM: 05/23/2018 CLINICAL HISTORY: pain TECHNIQUE: Frontal, lateral images of the left foot are obtained. COMPARISON: None. FINDINGS: There is no acute fracture/dislocation evident. Moderate degenerative narrowing and subcho ndral cyst formation midfoot. Moderate soft tissue swelling overlying the dorsum of the foot may be p osttraumatic in nature or related to cellulitis. Correlate clinically. No bony destructive process to suggest osteomyelitis at this time. IMPRESSION: Moderate soft tissue swelling overlying the dorsum of the foot may be posttraumatic in nature or rela jaron to cellulitis. Correlate clinically. ICD 10 NO FRACTURE, INITIAL EVALUATION
[2018-05-23 11:49] LABS: Platelet Count 49 k/uL (150-450)
[2018-05-23] MEDS ORDERED: VANCOMYCIN IV PER PHARMACY 1 EACH MISC MISCELLANE PRN (12:03)
[2018-05-23] MEDS ORDERED: HYDROmorphone 1 MG/ML 1 ML SYRINGE IVP STA (12:05)
[2018-05-23] MEDS ORDERED: IBUPROFEN 400 MG TAB PO PRN (12:06)
[2018-05-23] MEDS ORDERED: HYDROmorphone 0.5 MG/0.5 ML SYRINGE IVP PRN (12:06)
[2018-05-23] MEDS ORDERED: NALOXONE 0.4 MG/ML 1 ML VIAL IV PRN (12:06)
[2018-05-23] MEDS ORDERED: ACETAMINOPHEN TAB 325 MG TAB PO PRN (12:06)
[2018-05-23] MEDS ORDERED: VANCOMYCIN 2,000 MG in SODIUM CHLORIDE 0.9% 500 ML 500 ML IVPB STA (12:09)
[2018-05-23 14:00] VITALS: BMI 38.4
[2018-05-23] MEDS: ceFAZolin IN SWFI 2 GM/20 ML SYRINGE IVP SCH ×2 (17:07→23:19)
[2018-05-23] MEDS: HYDROmorphone 1 MG/ML 1 ML SYRINGE IVP PRN ×2 (17:08→20:33)
[2018-05-23] MEDS ORDERED: ALPRAZolam 0.25 MG TAB PO PRN (20:37)
[2018-05-23] MEDS ORDERED: TEMAZEPAM 15 MG CAP PO PRN (20:37)
[2018-05-23] MEDS: HEPARIN SODIUM,PORCINE 5,000 UNIT/ML 1 ML VIAL SQ SCH (22:50)
--- NOTE | 2018-05-23 22:55 | HP ---
HISTORY AND PHYSICAL I am covering for Dr. Ramos. DATE OF SERVICE: 05/23/2018 CHIEF COMPLAINT: Left leg cellulitis and pain. HISTORY OF PRESENT ILLNESS: This 58-year-old gentleman with a past medical history of hypertension, history of pancreatitis, being followed by Dr. Ramos in the outpatient setting apparently noted significant pain and swelling of the left leg since last and progressed and involved the more proximal part and the patient had difficulty in ambulation. The patient came to [facility] Emergency Room and was admitted for further evaluation and treatment. There is no history of fever, rigors or chills. No history of headache, loss of consciousness or seizures. PAST MEDICAL: Hypertension and pancreatitis. MEDICATIONS: Home medications are: 1. Cozaar 50 mg p.o. daily. 2. Bisoprolol that is Ziac 1 p.o. daily. ALLERGIES: LISINOPRIL. FAMILY HISTORY: Of hypertension in the family. SOCIAL HISTORY: No history of smoking. Occasional alcohol intake. REVIEW OF SYSTEMS: ENT: No diminished hearing or vision. CARDIOVASCULAR SYSTEM: No angina or palpitations. RESPIRATORY: As mentioned earlier. GI no nausea or vomiting. : No dysuria. NERVOUS SYSTEM: No numbness or weakness. ALLERGY/IMMUNOLOGY: No asthma or hay fever. MUSCULOSKELETAL as mentioned earlier. HEMATOLOGY/ONCOLOGY: No history of anemia. ENDOCRINE: No history of diabetes or hypothyroidism. CONSTITUTIONAL: As mentioned earlier. Dermatology: Negative. Rheumatology: Negative. Psychiatry: As mentioned earlier. PHYSICAL EXAMINATION: Alert oriented x3. Pulse 80, blood pressure 130/70, respiration 16, temperature 97.6, T-max 100.2, pulse ox 98% on room air. HEENT: Conjunctivae normal. NECK: No jugular venous distention. CARDIOVASCULAR: S1, S2 muffled. RESPIRATION: Breath sounds diminished in the bases. A few scattered rhonchi. No crackles. ABDOMEN: Soft, nontender. LEGS: Left leg cellulitis. NERVOUS SYSTEM: No focal deficits. SKIN: As mentioned earlier. JOINTS: No active deforming arthropathy. LAB STUDIES: WBC 4.2, hemoglobin 10.6. INR 1.3. Sodium 132. Lactic acid 2.1. ASSESSMENT: 1. Acute left leg cellulitis. 2. History of hypertension. 3. History of pancreatitis. 4. Anemia, normocytic anemia of undetermined etiology. 5. Hyponatremia. 6. Lactic acid improved. RECOMMENDATIONS AND DISCUSSION: This 58-year-old gentleman who presented with multiple complex medical issues. We will monitor the patient closely. Continue the current medications, management and symptomatic treatment. Otherwise IV antibiotics. Infectious Disease evaluation. Resume the home medications. The venous Doppler was done which showed no DVT. A copy of dictation being forwarded to Dr. Ramos who is the primary physician. LISA / MAITEN: [id number] / MTDD
[2018-05-24] MEDS ORDERED: VANCOMYCIN 1,750 MG in SODIUM CHLORIDE 0.9% 500 ML 500 ML IVPB SCH ×2
[2018-05-24] MEDS: HYDROmorphone 1 MG/ML 1 ML SYRINGE IVP PRN ×5 (04:27→23:05)
[2018-05-24 07:43] LABS: Anisocytosis Slight; HCT 30.8 % (39.0-53.0); HGB 9.9 gm/dL (13.0-17.5); MCH 30.9 pg (25.0-35.0); MCHC 32.2 g/dL (31.0-37.0); MCV 96.2 fL (80.0-100.0); Mean Platelet Volume 7.9; RBC 3.21 m/uL (4.30-5.90); RDW 16.3 % (11.5-15.5); WBC 3.7 k/uL (3.8-10.6)
[2018-05-24] MEDS: LOSARTAN 50 MG TAB PO SCH (07:45)
[2018-05-24] MEDS: HEPARIN SODIUM,PORCINE 5,000 UNIT/ML 1 ML VIAL SQ SCH ×2 (07:45→20:40)
[2018-05-24] MEDS: MULTIVITAMINS, THERA 1 EACH TAB PO SCH (07:45)
[2018-05-24] MEDS: BISOPROLOL-HCTZ 10-6.25 MG 1 EACH TAB PO SCH (07:45)
[2018-05-24] MEDS: PANTOPRAZOLE 40 MG TABLET PO SCH (07:45)
[2018-05-24 07:53] LABS: Platelet Count 56 k/uL (150-450)
[2018-05-24 07:57] LABS: Anion Gap 4 mmol/L; Blood Urea Nitrogen 16 mg/dL (9-20); Carbon Dioxide 26 mmol/L (22-30); Chloride 99 mmol/L (98-107); Glucose 87 mg/dL (74-99); Potassium 4.9 mmol/L (3.5-5.1); Sodium 129 mmol/L (137-145)
[2018-05-24] MEDS: ceFAZolin IN SWFI 2 GM/20 ML SYRINGE IVP SCH ×3 (09:32→23:06)
[2018-05-24 09:45] LABS: Basophils # (M) 0.04 k/uL (0-0.2); Eosinophils # (M) 0.04 k/uL (0-0.7); Lymphocytes # (M) 0.19 k/uL (1.0-4.8); Monocytes # (M) 0.59 k/uL (0-1.0); Neutrophils # (M) 2.85 k/uL (1.3-7.7); Neutrophils % (M) 77 %; Nucleated Red Blood Cells 0 /100 WBC (0-0); Total Cells Counted 100
[2018-05-24] MEDS: HYDROcodone/APAP 5-325MG 1 EACH TAB PO PRN ×2 (11:57→20:40)
--- NOTE | 2018-05-24 14:12 | XR ---
EXAMINATION TYPE: XR chest 1V portable DATE OF EXAM: 05/24/2018 Comparison: 12/01/2017 Clinical History: 58 year-old male shortness of breath, CHF Findings: Heart mildly enlarged. Mild diffuse interstitial prominence. No consolidation or pleural effusion. Impression: Mild cardiomegaly and interstitial prominence. Findings may reflect mild pulmonary vascular congestio n. No dion pulmonary edema.
[2018-05-24] MEDS ORDERED: VANCOMYCIN IV PER PHARMACY 1 EACH MISC MISCELLANE PRN (14:18)
--- NOTE | 2018-05-24 14:21 | P.CONS ---
History of Present Illness - Reason for Consult Consult date: 05/23/18 Left leg and foot cellulitis Requesting physician: Victorino Heart - Chief Complaint Left leg pain and swelling x 3 days - History of Present Illness Patient is a 58-year-old male presenting to the ER at [facility] chief complaints of left foot and leg swelling that started on that is 3 days prior to presentation hospital patient denies any history of any trauma or twisting of his ankle the swelling and redness continued to get worse over the next 2 days and the patient complaining of pain in the foot ankle area intensity is about 10 out of 10 when he walks on it is mostly she throbbing in nature, with pain getting worse the point that he was unable to walk on it and the patient are having a fever that he presented to hospital patient did have a fear 100.3 on presentation patient did have worsening B Doppler was negative for DVT the patient was started on vancomycin and admitted to the hospital infectious disease was consulted for further recommendation regarding antibiotic therapy Review of Systems Review of system Constitutional: The patient complaining of fever or rigors or chills, the patient does complain of weakness. Eyes: No complaint ENT: No complaint Respiratory: No complaint Cardiovascular: No complaint Gastrointestinal: No complaint Genitourinary: No complaint Musculoskeletal: As per history of present illness Integumentary: No complaint Endocrine : No complaint Psycologial : No complaint Neurological: No complaint. Past Medical History Past Medical History: Hypertension Additional Past Medical History / Comment(s): pancreatitis-pt states pancreatitis was side effect from Lisinopril. History of Any Multi-Drug Resistant Organisms: None Reported Past Surgical History: No Surgical Hx Reported Additional Past Surgical History / Comment(s): . Past Anesthesia/Blood Transfusion Reactions: No Reported Reaction Smoking Status: Never smoker - Past Family History Mother Family Medical History: Hypertension Father Family Medical History: CVA/TIA Medications and Allergies Home Medications Medication Instructions Recorded Confirmed Type Losartan [Cozaar] 50 mg PO DAILY #30 tab 12/11/17 05/23/18 Rx Bisoprolol-Hctz 10-6.25 mg [Ziac 1 tab PO DAILY 05/23/18 05/23/18 History 10-6.25 MG] Allergies Allergy/AdvReac Type Severity Reaction Status Date / Time lisinopril AdvReac Cough Verified 05/23/18 12:18 Physical Exam Vitals: Vital Signs Temp Pulse Pulse Resp BP BP Pulse Ox 05/23/18 20:24 97.6 F 80 16 136/70 98 05/23/18 13:01 98.3 F 88 16 129/79 100 05/23/18 09:48 100.3 F H 96 18 156/68 97 Intake and Output 05/23/18 05/23/18 05/23/18 06:59 14:59 22:59 Intake Total 50 Balance 50 Intake: Intake, IV Titration 50 Amount cefTRIAXone 1 gm In 50 Sodium Chloride 0.9% 50 ml @ 100 mls/hr IVPB [facility] Rx#:[id number] Other: Voiding Method Urinal # Voids 1 Weight 117.934 kg General: The patient is awake and alert, in no distress. Skin: no rashes and no masses palpable. Eye: Pupils are equal, round, there is normal conjunctiva bilaterally. Ears, nose, mouth and throat: There are moist mucous membranes and no oral lesions. Neck: The neck is supple, there is no thyromegaly. Cardiovascular: S1-S2 regular rate and rhythm. No murmur. Respiratory: Unlabored breathing clear to auscultation bilaterally Gastrointestinal: Soft, non-distended, non-tender abdomen without masses or organomegaly noted. Neurological: There are no obvious motor or sensory deficits. Coordination appears grossly intact. Speech is normal. Psychiatric: Patient is awake and alert and oriented 3, appropriate mood & affect, normal judgment. Musculoskeletal : Left foot with diffuse swelling very minimal redness with some of the swelling redness extending to the lower leg currently with no open wound or any drainage Results CBC & Chem 7: 05/24/18 07:05 05/24/18 07:05 Labs: Abnormal Lab Results - Last 24 Hours (Table) 05/23/18 05/23/18 05/23/18 Range/Units 11:00 11:00 11:00 RBC 3.33 L (4.30-5.90) m/uL Hgb 10.6 L (13.0-17.5) gm/dL Hct 31.3 L (39.0-53.0) % RDW 16.4 H (11.5-15.5) % Plt Count 49 L (150-450) k/uL Lymphocytes # 0.3 L (1.0-4.8) k/uL PT (9.0-12.0) sec INR (<1.2) Sodium 132 L (137-145) mmol/L Carbon Dioxide 21 L (22-30) mmol/L Creatinine 0.58 L (0.66-1.25) mg/dL Glucose 101 H (74-99) mg/dL Plasma Lactic Acid Mason 2.1 H* (0.7-2.0) mmol/L Uric Acid 3.0 L (3.5-8.5) mg/dL Total Bilirubin 3.9 H (0.2-1.3) mg/dL C-Reactive Protein 31.4 H (<10.0) mg/L Albumin 3.1 L (3.5-5.0) g/dL Urine Protein (Negative) Urine Bilirubin (Negative) Urine Mucus (None) /hpf 05/23/18 05/23/18 Range/Units 11:00 11:00 RBC (4.30-5.90) m/uL Hgb (13.0-17.5) gm/dL Hct (39.0-53.0) % RDW (11.5-15.5) % Plt Count (150-450) k/uL Lymphocytes # (1.0-4.8) k/uL PT 13.4 H (9.0-12.0) sec INR 1.3 H (<1.2) Sodium (137-145) mmol/L Carbon Dioxide (22-30) mmol/L Creatinine (0.66-1.25) mg/dL Glucose (74-99) mg/dL Plasma Lactic Acid Mason (0.7-2.0) mmol/L Uric Acid (3.5-8.5) mg/dL Total Bilirubin (0.2-1.3) mg/dL C-Reactive Protein (<10.0) mg/L Albumin (3.5-5.0) g/dL Urine Protein 1+ H (Negative) Urine Bilirubin 1+ H (Negative) Urine Mucus Many H (None) /hpf Assessment and Plan (1) Left leg cellulitis Current Visit: Yes Status: Acute Code(s): L03.116 - CELLULITIS OF LEFT LOWER LIMB SNOMED Code(s): 402187444 Plan: 1-patient with acute left foot and leg cellulitis in this patient who do have a diffuse swelling redness suspicious for likely streptococcal cellulitis clinically doubt MRSA infection 2- we will discontinue vancomycin 3-start the patient cefazolin 2 g every 8 hours 4- Jagdeep wrap to the left foot and leg from March the toe to below the knee we will follow-up on clinical condition to further adjust medication if needed , thank you for this consultation will follow this patient along with you Time with Patient: Greater than 30
[2018-05-24] MEDS: FUROSEMIDE 10 MG/ML 4 ML VIAL IV SCH (14:28)
[2018-05-24] MEDS: VANCOMYCIN 1,750 MG in SODIUM CHLORIDE 0.9% 500 ML 500 ML IVPB SCH ×2 (15:48→23:06)
--- NOTE | 2018-05-24 17:20 | PN ---
PROGRESS NOTE I am covering for Dr. Ramos. DATE OF SERVICE: 03/23/2019 HISTORY: This 58-year-old gentleman was admitted with bilateral leg cellulitis on the right. He is being closely monitored. No chest pain. No palpitations. The patient also has leg edema also. A chest x-ray done today showed some interstitial prominence, otherwise Infectious Disease is following the patient closely. No chest pain. No palpitations. No fever. EXAM: Alert, oriented x3. Pulse is 66, blood pressure 170/70, respirations 16, temperature 98.6, pulse ox 94% on room air. HEENT: Conjunctivae normal. NECK: Supple. No JVD. CARDIOVASCULAR: S1 and S2 muffled. LUNGS: Breath sounds diminished in the bases. Few scattered rhonchi. No crackles. ABDOMEN: Soft, nontender. EXTREMITIES: Legs no edema, no swelling. NERVOUS SYSTEM: No focal deficits. LABS: WBC 3.2, hemoglobin 9.9, sodium 139. Other labs are noted. ASSESSMENT: 1. Bilateral leg cellulitis, left more than right. 2. History of hypertension. 3. History of pancreatitis. 4. Anemia, normocytic anemia, of undetermined etiology. 5. Hyponatremia. 6. Elevated lactic acid, improved. 7. Rule out CHF. RECOMMENDATIONS: Continue current medications and symptomatic treatment. Otherwise at this time I would recommend to continue the antibiotics. Also recommend a 2D echo with Doppler and BNP also. Dr. Ramos will follow. MMODL / IJN: [id number] /
--- NOTE | 2018-05-24 22:41 | PN ---
PROGRESS NOTE DATE OF SERVICE: 05/24/2018. REASON FOR FOLLOWUP: Left leg cellulitis. INTERVAL HISTORY: The patient's clinical course is complicated by development of new fever. Another fever this morning of 102.8. The patient's blood culture positive with gram- positive cocci. The patient did have pain to the left leg area with no worsening, more of a dull aching pain 3 to 4 out of 10 in duration. Denies having any chest pain. No shortness of breath or cough. No abdominal pain. No diarrhea. REVIEW OF SYSTEMS: Positive points have been mentioned in HPI. The rest of the review of systems has been negative. PAST MEDICAL: History reviewed and medication reviewed. PHYSICAL EXAMINATION: Blood pressure 117/72 with a pulse of 69, temperature 98.6, he is 94% on room air. GENERAL DESCRIPTION: A middle-aged male lying in bed in no distress. HEENT: Pallor. No scleral icterus. Oral mucosa dry. NECK: Trachea central. No thyromegaly. LUNGS: Unlabored breathing. Clear to auscultation anteriorly. HEART: S1, S2. Regular rate and rhythm. ABDOMEN: Soft. EXTREMITIES: Left leg did have some swelling and redness, slightly decreased. No area or any drainage. LABS: Hemoglobin is 9.8, white count 3.7, BUN of 16, creatinine 0.69. Blood culture with Staph aureus. DIAGNOSTIC IMPRESSION AND PLAN: Patient with acute left lower extremity cellulitis. Patient now with evidence of Staphylococcus aureus bacteremia. Vancomycin will be added while waiting for the sensitivity to finalize. Keep the patient Cefazolin as well along with Jagdeep wrap to keep the swelling down. Continue supportive care. MMODL / IJN: [id number] / [facility]CTORS HOSPITALGregory
[2018-05-25] MEDS: HYDROcodone/APAP 5-325MG 1 EACH TAB PO PRN ×4 (02:15→23:12)
[2018-05-25] MEDS: HYDROmorphone 1 MG/ML 1 ML SYRINGE IVP PRN ×4 (05:53→20:31)
[2018-05-25] MEDS: VANCOMYCIN 1,750 MG in SODIUM CHLORIDE 0.9% 500 ML 500 ML IVPB SCH ×3 (06:00→23:12)
[2018-05-25] MEDS: FUROSEMIDE 10 MG/ML 4 ML VIAL IV SCH (07:22)
[2018-05-25] MEDS: HEPARIN SODIUM,PORCINE 5,000 UNIT/ML 1 ML VIAL SQ SCH ×2 (07:22→20:32)
[2018-05-25] MEDS: LOSARTAN 50 MG TAB PO SCH (07:22)
[2018-05-25] MEDS: BISOPROLOL-HCTZ 10-6.25 MG 1 EACH TAB PO SCH (07:23)
[2018-05-25] MEDS: PANTOPRAZOLE 40 MG TABLET PO SCH (07:24)
[2018-05-25] MEDS: ceFAZolin IN SWFI 2 GM/20 ML SYRINGE IVP SCH ×3 (09:03→23:12)
[2018-05-25 09:24] LABS: Anisocytosis Slight; HCT 30.7 % (39.0-53.0); HGB 9.9 gm/dL (13.0-17.5); MCH 31.4 pg (25.0-35.0); MCHC 32.3 g/dL (31.0-37.0); MCV 97.2 fL (80.0-100.0); Macrocytosis Slight; Mean Platelet Volume 7.1; RBC 3.16 m/uL (4.30-5.90); RDW 16.4 % (11.5-15.5); WBC 3.8 k/uL (3.8-10.6)
[2018-05-25 09:28] LABS: Anion Gap 5 mmol/L; Blood Urea Nitrogen 15 mg/dL (9-20); Calcium 7.5 mg/dL (8.4-10.2); Carbon Dioxide 26 mmol/L (22-30); Chloride 96 mmol/L (98-107); Glucose 121 mg/dL (74-99); Platelet Count 75 k/uL (150-450); Potassium 4.1 mmol/L (3.5-5.1); Sodium 127 mmol/L (137-145)
--- NOTE | 2018-05-25 09:46 | P.PN ---
Subjective Progress Note Date: 05/25/18 Principal diagnosis: Cellulitis of the lower extremities The patient is a 58-year-old white male essentially admitted for cellulitis of the lower extremities. The patient has underlying history of hypertension. No fever or chills. Positive blood culture for staph coccus aureus otherwise. Objective - Vital Signs Vital signs: Vital Signs Temp 98.8 F 05/25/18 05:00 Pulse 76 05/25/18 05:00 Resp 18 05/25/18 05:00 BP 122/69 05/25/18 05:00 Pulse Ox 93 L 05/25/18 05:00 Intake & Output 05/24/18 05/25/18 05/25/18 18:59 06:59 18:59 Output Total 500 Balance -500 Output: Urine 500 Other: Voiding Method Urinal Urinal Urinal # Voids 3 1 # Bowel Movements 1 - Constitutional General appearance: Present: cooperative, no acute distress - EENT Eyes: Absent: abnormal pupil - Neck Neck: Absent: lymphadenopathy - Respiratory Respiratory: bilateral: CTA - Cardiovascular Rhythm: regular Heart sounds: normal: S1, S2 Abnormal Heart Sounds: Absent: S3 Gallop - Gastrointestinal General gastrointestinal: Present: soft - Integumentary Integumentary: Present: cellulitis - Labs CBC & Chem 7: 05/25/18 08:22 05/25/18 08:22 Labs: Abnormal Lab Results - Last 24 Hours (Table) 05/24/18 05/25/18 05/25/18 Range/Units 07:05 08:22 08:22 RBC 3.16 L (4.30-5.90) m/uL Hgb 9.9 L (13.0-17.5) gm/dL Hct 30.7 L (39.0-53.0) % RDW 16.4 H (11.5-15.5) % Plt Count 75 L (150-450) k/uL Lymphocytes # (Manual) 0.19 L (1.0-4.8) k/uL Sodium 127 L (137-145) mmol/L Chloride 96 L (98-107) mmol/L Glucose 121 H (74-99) mg/dL Calcium 7.5 L (8.4-10.2) mg/dL Microbiology - Last 24 Hours (Table) 05/23/18 11:00 Blood Culture Gram Stain - Preliminary Blood Blood Culture - Preliminary Staph aureus Assessment and Plan (1) Left leg cellulitis Current Visit: Yes Status: Acute Code(s): L03.116 - CELLULITIS OF LEFT LOWER LIMB SNOMED Code(s): 507475983 (2) Sepsis Current Visit: Yes Status: Acute Code(s): A41.9 - SEPSIS, UNSPECIFIED ORGANISM SNOMED Code(s): 80126199 (3) Thrombocytopenia Current Visit: Yes Status: Acute Code(s): D69.6 - THROMBOCYTOPENIA, UNSPECIFIED SNOMED Code(s): 179874171 (4) Depression Current Visit: No Status: Chronic Priority: Medium Code(s): F32.9 - MAJOR DEPRESSIVE DISORDER, SINGLE EPISODE, UNSPECIFIED SNOMED Code(s): 67131536 (5) Financial problems Current Visit: No Status: Chronic Priority: High Code(s): Z59.8 - OTHER PROBLEMS RELATED TO HOUSING AND ECONOMIC CIRCUMSTANCES SNOMED Code(s): 848918701 Plan: Continue current regimen anabiotic treatment pending blood culture and sensitivity. Check CBC in a.m. Watch for any type of alcohol-related issue. See orders otherwise. Time with Patient: Greater than 30
[2018-05-25 11:06] LABS: Eosinophils # (M) 0.19 k/uL (0-0.7); Lymphocytes # (M) 0.65 k/uL (1.0-4.8); Monocytes # (M) 0.42 k/uL (0-1.0); Neutrophils # (M) 2.55 k/uL (1.3-7.7); Neutrophils % (M) 67 %; Nucleated Red Blood Cells 0 /100 WBC (0-0); Poikilocytosis (M) Present; Total Cells Counted 100
[2018-05-25 11:07] LABS: Polychromasia Present
--- NOTE | 2018-05-25 11:10 | ECHOF ---
Referral Reason:chf MEASUREMENTS -------- HEIGHT: 175.3 cm WEIGHT: 9.1 kg BP: 122/69 RVIDd: 3.8 cm (< 3.3) IVSd: 1.0 cm (0.6 - 1.1) LVIDd: 5.5 cm (3.9 - 5.3) LVPWd: 1.0 cm (0.6 - 1.1) IVSs: 1.4 cm LVIDs: 3.7 cm LVPWs: 1.7 cm LA Diam: 4.8 cm (2.7 - 3.8) LAESV Index (A-L): 116.02 ml/m Ao Diam: 2.8 cm (2.0 - 3.7) AV Cusp: 2.3 cm (1.5 - 2.6) LA Diam: 4.3 cm (2.7 - 3.8) MV EXCURSION: 23.037 mm (> 18.000) MV EF SLOPE: 120 mm/s (70 - 150) EPSS: 0.4 cm MV E Archie: 0.80 m/s MV DecT: 201 ms MV A Archie: 0.59 m/s MV E/A Ratio: 1.36 RAP: 5.00 mmHg RVSP: 27.27 mmHg FINDINGS -------- Sinus rhythm. This was a technically adequate study. Morbid Obesity LV size, wall thickness and systolic function are normal, with an EF greater than 55%. The left home tricular size is normal. The right ventricle is normal in size. The left atrium is markedly dilated. LA is severely dilated >40 ml/m2 The right atrial size is normal. The aortic valve is trileaflet, and appears structurally normal. No aortic stenosis or regurgitation. Mild mitral regurgitation is present. Mild tricuspid regurgitation present. There is no evidence of pulmonary hypertension. The right v entricular systolic pressure, as measured by Doppler, is 27.27mmHg. There is no pulmonic regurgitation present. The aortic root size is normal. There is no pericardial effusion. CONCLUSIONS -------- 1. Morbid Obesity 2. LV size, wall thickness and systolic function are normal, with an EF greater than 55%. 3. The left ventricular size is normal. 4. The right ventricle is normal in size. 5. The left atrium is markedly dilated. 6. LA is severely dilated >40 ml/m2 7. The right atrial size is normal. 8. The aortic valve is trileaflet, and appears structurally normal. No aortic stenosis or regurgitati on. 9. Mild mitral regurgitation is present. 10. Mild tricuspid regurgitation present. 11. There is no evidence of pulmonary hypertension. 12. The right ventricular systolic pressure, as measured by Doppler, is 27.27mmHg. 13. There is no pulmonic regurgitation present. 14. The aortic root size is normal. 15. There is no pericardial effusion. RABBIT DRESSER: Minna Glasgow RDCS
[2018-05-25] MEDS: MULTIVITAMINS, THERA 1 EACH TAB PO SCH (12:10)
--- NOTE | 2018-05-25 19:04 | CT ---
CT scan of the left foot. History swelling and pain. Comparison none. TECHNIQUE: Multiple axial sections were obtained from the mid tibia to the bottom of the metatarsals with intrav enous contrast. The contrast was Isovue 100 mL. FINDINGS: There is a plantar calcaneal spur. There is hypertrophic spurring and joint space narrowing of the ta rsometatarsal joints. There is soft tissue mild swelling around the forefoot. The metatarsals appear intact. I see no focal bone destruction. The subtalar joint is intact. Calcaneus is intact. I see no discrete fluid collection. IMPRESSION: Osteoarthritic changes at the tarsometatarsal joints. No evidence of osteomyelitis. Soft tissue swelling consistent with cellulitis. No abscess.
--- NOTE | 2018-05-25 20:23 | PN ---
PROGRESS NOTE DATE OF SERVICE: 05/25/2018. REASON FOR FOLLOWUP: Left foot cellulitis, history of bacteremia. INTERVAL HISTORY: The patient is currently afebrile, has been breathing comfortably. Denies having any chest pain. No shortness of breath or cough. No abdominal pain or any diarrhea. PHYSICAL EXAMINATION: On examination, blood pressure is 91/59 with a pulse of 75, temperature 98.2. He is 95%. General description is a middle-aged male lying in bed in no distress. Respiratory system: Unlabored breathing. Clear to auscultation anteriorly. Heart S1, S2. Regular rate and rhythm. Abdomen soft. No tenderness. Left foot still has significant swelling but no redness was noted. Slightly tender to touch. No significant redness at the ankle joint area. LABS: Hemoglobin 9.8, white count 3.8 with a BUN of 15, creatinine 0.66. Blood culture with Staph aureus. Repeat blood culture sent yesterday are currently pending. DIAGNOSTIC IMPRESSION AND PLAN: Patient had with left foot and leg cellulitis in this patient now with evidence of a Staph aureus bacteremia with concern for possible deep infection. We will obtain a CT of the left foot with contrast to rule out any abscess. The patient is currently covered with cefazolin and vanco while waiting for the ID and sensitivity of this Staph aureus. Continue supportive care. MMODL / IJN: [id number] /
[2018-05-25] MEDS ORDERED: VANCOMYCIN TROUGH DUE 1 EACH MISC MISCELLANE ONE (22:00)
[2018-05-26] MEDS: HYDROmorphone 1 MG/ML 1 ML SYRINGE IVP PRN ×2 (03:22→09:23)
[2018-05-26] MEDS: HYDROcodone/APAP 5-325MG 1 EACH TAB PO PRN ×3 (06:00→20:15)
[2018-05-26] MEDS: VANCOMYCIN 1,750 MG in SODIUM CHLORIDE 0.9% 500 ML 500 ML IVPB SCH (06:01)
[2018-05-26 08:56] LABS: Anisocytosis Slight; HGB 10.1 gm/dL (13.0-17.5); MCH 31.1 pg (25.0-35.0); MCHC 31.5 g/dL (31.0-37.0); MCV 98.7 fL (80.0-100.0); Macrocytosis Slight; Mean Platelet Volume 7.1; RBC 3.24 m/uL (4.30-5.90); RDW 16.5 % (11.5-15.5); WBC 3.1 k/uL (3.8-10.6)
[2018-05-26] MEDS: PANTOPRAZOLE 40 MG TABLET PO SCH (08:58)
[2018-05-26] MEDS: HEPARIN SODIUM,PORCINE 5,000 UNIT/ML 1 ML VIAL SQ SCH ×2 (08:58→20:15)
[2018-05-26] MEDS: LOSARTAN 50 MG TAB PO SCH (08:58)
[2018-05-26 09:00] LABS: Platelet Count 81 k/uL (150-450)
[2018-05-26] MEDS: ceFAZolin IN SWFI 2 GM/20 ML SYRINGE IVP SCH ×3 (09:09→23:21)
[2018-05-26] MEDS: FUROSEMIDE 10 MG/ML 4 ML VIAL IV SCH (09:09)
[2018-05-26 09:12] LABS: ALT 27 U/L (21-72); AST 39 U/L (17-59); Albumin 2.6 g/dL (3.5-5.0); Alkaline Phosphatase 74 U/L (38-126); Anion Gap 4 mmol/L; Blood Urea Nitrogen 11 mg/dL (9-20); Calcium 7.5 mg/dL (8.4-10.2); Carbon Dioxide 28 mmol/L (22-30); Chloride 96 mmol/L (98-107); Glucose 104 mg/dL (74-99); Potassium 4.2 mmol/L (3.5-5.1); Sodium 128 mmol/L (137-145); Total Bilirubin 1.5 mg/dL (0.2-1.3); Total Protein 6.3 g/dL (6.3-8.2)
[2018-05-26] MEDS: BISOPROLOL-HCTZ 10-6.25 MG 1 EACH TAB PO SCH (09:12)
[2018-05-26 09:45] LABS: Band Neutrophils % 1 %; Eosinophils # (M) 0.12 k/uL (0-0.7); Lymphocytes # (M) 0.43 k/uL (1.0-4.8); Monocytes # (M) 0.31 k/uL (0-1.0); Neutrophils % (M) 71 %; Nucleated Red Blood Cells 0 /100 WBC (0-0); Total Cells Counted 100
[2018-05-26] MEDS: MULTIVITAMINS, THERA 1 EACH TAB PO SCH (13:12)
--- NOTE | 2018-05-26 16:18 | P.PN ---
Subjective Principal diagnosis: Cellulitis of the lower extremities The patient is here essentially because of cellulitis of the left lower extremity and positive sepsis for Staphylococcus aureus. Patient states he feels much better today.No voiding difficulties. Objective - Vital Signs Vital signs: Vital Signs Temp 98.1 F 05/26/18 13:45 Pulse 69 05/26/18 13:45 Resp 17 05/26/18 13:45 BP 97/54 05/26/18 13:45 Pulse Ox 97 05/26/18 13:45 Intake & Output 05/25/18 05/26/18 05/26/18 18:59 06:59 18:59 Intake Total 1650 1070 500 Output Total 700 400 Balance 1650 370 100 Intake: Intake, IV Titration 500 500 Amount Vancomycin 1,750 mg In 500 500 Sodium Chloride 0.9% 500 ml 500 ml @ 167 mls/hr IVPB Q8H [facility] Rx#: [id number] Oral 1150 1070 Output: Urine 700 400 Other: Voiding Method Urinal Urinal Urinal # Voids 3 1 - Constitutional General appearance: Present: average body habitus - EENT Eyes: Absent: abnormal pupil - Respiratory Respiratory: bilateral: diminished - Cardiovascular Rhythm: regular Heart sounds: normal: S1, S2 Abnormal Heart Sounds: Absent: S3 Gallop - Gastrointestinal General gastrointestinal: Present: soft. Absent: tenderness - Neurologic Neurologic: Present: CNII-XII intact - Labs CBC & Chem 7: 05/26/18 08:12 05/26/18 08:12 Labs: Abnormal Lab Results - Last 24 Hours (Table) 05/26/18 05/26/18 Range/Units 08:12 08:12 WBC 3.1 L (3.8-10.6) k/uL RBC 3.24 L (4.30-5.90) m/uL Hgb 10.1 L (13.0-17.5) gm/dL Hct 32.0 L (39.0-53.0) % RDW 16.5 H (11.5-15.5) % Plt Count 81 L (150-450) k/uL Lymphocytes # (Manual) 0.43 L (1.0-4.8) k/uL Sodium 128 L (137-145) mmol/L Chloride 96 L (98-107) mmol/L Creatinine 0.57 L (0.66-1.25) mg/dL Glucose 104 H (74-99) mg/dL Calcium 7.5 L (8.4-10.2) mg/dL Total Bilirubin 1.5 H (0.2-1.3) mg/dL Albumin 2.6 L (3.5-5.0) g/dL Microbiology - Last 24 Hours (Table) 05/23/18 11:00 Blood Culture Gram Stain - Final Blood Blood Culture - Final Staph aureus 05/24/18 15:59 Blood Culture - Preliminary Blood No Growth after 24 hours Assessment and Plan (1) Left leg cellulitis Current Visit: Yes Status: Acute Code(s): L03.116 - CELLULITIS OF LEFT LOWER LIMB SNOMED Code(s): 032189530 (2) Sepsis Current Visit: Yes Status: Acute Code(s): A41.9 - SEPSIS, UNSPECIFIED ORGANISM SNOMED Code(s): 53402857 (3) Thrombocytopenia Current Visit: Yes Status: Acute Code(s): D69.6 - THROMBOCYTOPENIA, UNSPECIFIED SNOMED Code(s): 364218506 (4) Depression Current Visit: No Status: Chronic Priority: Medium Code(s): F32.9 - MAJOR DEPRESSIVE DISORDER, SINGLE EPISODE, UNSPECIFIED SNOMED Code(s): 88661811 (5) Financial problems Current Visit: No Status: Chronic Priority: High Code(s): Z59.8 - OTHER PROBLEMS RELATED TO HOUSING AND ECONOMIC CIRCUMSTANCES SNOMED Code(s): 361921956 Plan: Continue current regimen and about treatment. Pending sensitivity for recent blood culture positivity for Staphylococcus aureus. Check CBC and CMP in a.m. See orders otherwise. Time with Patient: Less than 30
[2018-05-26] MEDS ORDERED: VANCOMYCIN 2,000 MG in SODIUM CHLORIDE 0.9% 500 ML 500 ML IVPB SCH (19:00)
[2018-05-27] MEDS: HYDROmorphone 1 MG/ML 1 ML SYRINGE IVP PRN (05:40)
--- NOTE | 2018-05-27 06:08 | PN ---
PROGRESS NOTE DATE OF SERVICE: 05/26/2018. REASON FOR FOLLOWUP: Left foot cellulitis and MSSA bacteremia. INTERVAL HISTORY: The patient is currently afebrile, has been breathing comfortably. The patient denies having any chest pain or shortness of breath, cough, no abdominal pain or pain to the left foot area. PHYSICAL EXAMINATION: Blood pressure is 111/63 with a pulse of 54, temperature 98.2. He is 97% on room air. General description is a middle-aged male lying in bed in no distress. Respiratory system: Unlabored breathing, clear to auscultation anteriorly. Heart S1, S2. Regular rate and rhythm. Abdomen soft, no tenderness. Left foot leg redness slightly decreased. LABS: Hemoglobin is 10.9, white count 3.1, BUN of 11, creatinine 0.57. Blood culture MSSA. Repeat blood culture has been negative. DIAGNOSTIC IMPRESSION AND PLAN: Patient with acute left foot cellulitis. The patient did have a CT which was negative for any abscess or osteomyelitis. The patient blood culture finalized with MSSA and he will keep the patient on cefazolin 2 g. However, discontinue the vancomycin and plan on getting a midline possible with a plan for continuation of cefazolin 2 g every eight hours in the outpatient setting for at least 2 more weeks. Continue supportive care. MMODL / IJN: [id number] / [facility]
[2018-05-27] MEDS: HYDROcodone/APAP 5-325MG 1 EACH TAB PO PRN ×3 (06:17→20:39)
--- NOTE | 2018-05-27 07:47 | P.PN ---
Subjective Principal diagnosis: Element of cellulitis The patient is here essentially because of cellulitis of left lower extremity with element of sepsis. Long-term IV antibiotic therapy has been suggested. Discharge planning will be consulted for possible placement for infusion element Objective - Vital Signs Vital signs: Vital Signs Temp 98.8 F 05/27/18 04:35 Pulse 76 05/27/18 04:35 Resp 18 05/27/18 04:35 BP 118/61 05/27/18 04:35 Pulse Ox 93 L 05/27/18 04:35 Intake & Output 05/26/18 05/27/18 05/27/18 18:59 06:59 18:59 Intake Total 1000 Output Total 1200 Balance -200 Intake: Intake, IV Titration 1000 Amount Vancomycin 1,750 mg In 500 Sodium Chloride 0.9% 500 ml 500 ml @ 167 mls/hr IVPB Q8H [facility] Rx#: [id number] Vancomycin 2,000 mg In 500 Sodium Chloride 0.9% 500 ml 500 ml @ 167 mls/hr IVPB Q12H [facility] Rx#: [id number] Output: Urine 1200 Other: Voiding Method Urinal Urinal # Voids 2 - Constitutional General appearance: Present: obese - EENT Eyes: Absent: abnormal pupil - Respiratory Respiratory: bilateral: CTA - Cardiovascular Rhythm: regular Abnormal Heart Sounds: Absent: S3 Gallop - Gastrointestinal General gastrointestinal: Present: soft. Absent: tenderness - Integumentary Integumentary: Present: cellulitis - Labs CBC & Chem 7: 05/26/18 08:12 05/26/18 08:12 Labs: Abnormal Lab Results - Last 24 Hours (Table) 05/26/18 05/26/18 Range/Units 08:12 08:12 WBC 3.1 L (3.8-10.6) k/uL RBC 3.24 L (4.30-5.90) m/uL Hgb 10.1 L (13.0-17.5) gm/dL Hct 32.0 L (39.0-53.0) % RDW 16.5 H (11.5-15.5) % Plt Count 81 L (150-450) k/uL Lymphocytes # (Manual) 0.43 L (1.0-4.8) k/uL Sodium 128 L (137-145) mmol/L Chloride 96 L (98-107) mmol/L Creatinine 0.57 L (0.66-1.25) mg/dL Glucose 104 H (74-99) mg/dL Calcium 7.5 L (8.4-10.2) mg/dL Total Bilirubin 1.5 H (0.2-1.3) mg/dL Albumin 2.6 L (3.5-5.0) g/dL Microbiology - Last 24 Hours (Table) 05/24/18 15:59 Blood Culture - Preliminary Blood No Growth after 48 hours 05/23/18 11:00 Blood Culture Gram Stain - Final Blood Blood Culture - Final Staph aureus Assessment and Plan (1) Left leg cellulitis Current Visit: Yes Status: Acute Code(s): L03.116 - CELLULITIS OF LEFT LOWER LIMB SNOMED Code(s): 379978916 (2) Sepsis Current Visit: Yes Status: Acute Code(s): A41.9 - SEPSIS, UNSPECIFIED ORGANISM SNOMED Code(s): 99360721 (3) Thrombocytopenia Current Visit: Yes Status: Acute Code(s): D69.6 - THROMBOCYTOPENIA, UNSPECIFIED SNOMED Code(s): 980654276 (4) Depression Current Visit: No Status: Chronic Priority: Medium Code(s): F32.9 - MAJOR DEPRESSIVE DISORDER, SINGLE EPISODE, UNSPECIFIED SNOMED Code(s): 58828827 (5) Financial problems Current Visit: No Status: Chronic Priority: High Code(s): Z59.8 - OTHER PROBLEMS RELATED TO HOUSING AND ECONOMIC CIRCUMSTANCES SNOMED Code(s): 685907739 Plan: The plan would be to transfer this patient ECF/rehab with the additional help for ambulation. The patient will have line for infusion and surgeon in the next day or so. Check CBC and CMP in a.m. Prognosis is improving. PT and OT. Time with Patient: Less than 30
[2018-05-27 08:09] LABS: Anisocytosis Slight; HCT 30.8 % (39.0-53.0); HGB 10.1 gm/dL (13.0-17.5); MCHC 32.7 g/dL (31.0-37.0); Macrocytosis Slight; Mean Platelet Volume 6.8; RBC 3.15 m/uL (4.30-5.90); RDW 16.3 % (11.5-15.5); WBC 2.9 k/uL (3.8-10.6)
[2018-05-27 08:12] LABS: Anion Gap 4 mmol/L; Blood Urea Nitrogen 11 mg/dL (9-20); Calcium 7.6 mg/dL (8.4-10.2); Carbon Dioxide 29 mmol/L (22-30); Chloride 98 mmol/L (98-107); Glucose 110 mg/dL (74-99); Potassium 4.3 mmol/L (3.5-5.1); Sodium 131 mmol/L (137-145)
[2018-05-27] MEDS: ceFAZolin IN SWFI 2 GM/20 ML SYRINGE IVP SCH ×2 (08:19→15:20)
[2018-05-27] MEDS: FUROSEMIDE 10 MG/ML 4 ML VIAL IV SCH (08:19)
[2018-05-27] MEDS: PANTOPRAZOLE 40 MG TABLET PO SCH (08:20)
[2018-05-27 08:21] LABS: Platelet Count 72 k/uL (150-450)
[2018-05-27] MEDS: HEPARIN SODIUM,PORCINE 5,000 UNIT/ML 1 ML VIAL SQ SCH ×2 (08:21→20:39)
[2018-05-27] MEDS: LOSARTAN 50 MG TAB PO SCH (08:21)
[2018-05-27] MEDS: BISOPROLOL-HCTZ 10-6.25 MG 1 EACH TAB PO SCH (08:21)
[2018-05-27 09:26] LABS: Eosinophils # (M) 0.06 k/uL (0-0.7); Lymphocytes # (M) 0.49 k/uL (1.0-4.8); Monocytes # (M) 0.41 k/uL (0-1.0); Neutrophils # (M) 1.94 k/uL (1.3-7.7); Neutrophils % (M) 67 %; Nucleated Red Blood Cells 0 /100 WBC (0-0); Total Cells Counted 100
[2018-05-27 09:27] LABS: Poikilocytosis (M) Present
--- NOTE | 2018-05-27 11:43 | CDI ---
Documentation Clarification Form Date: 05/27/2018 11:23:28 AM From: Chanel Mejia RN, CCDS Admit Date: 05/23/2018 12:13:00 PM Patient Name: Fred Kim Visit Number: [id number] Discharge Date: ATTENTION: The Clinical Documentation Specialists (CDI) and [facility] Coding Staff appreciate your assistance in clarifying documentation. Please respond to the clarification below the line at the bottom and electronically sign. The CDI & [facility] Coding staff will review the response and follow-up if needed. Please note: Queries are made part of the Legal Health Record. If you have any questions, please contact the author of this message via ITS. Dr. Noman Ramos Thrombocytopenia is documented in the Emergency Department impression, in your documentation on 05/25/18 and ongoing progress notes . Patient history/risk factors: Hypertension, Pancreatitis Clinical Indicators: Present for pain and swelling of left leg with history of pancreatitis and was noted in H/P has occasional alcohol intake. Platelet count: 49, 56, 74, 81, 72 Treatment: Monitor CBC In your professional opinion, can the type and etiology of thrombocytopenia be further specified as one of the following, if known? Idiopathic Thrombocytopenia Primary Thrombocytopenia Secondary Thrombocytopenia Thrombocytopenia due to drugs Other, please specify Unable to determine (Last Revision: January 2017) The patient most likely has an underlying history of thrombocytopenia due to alcohol use chronically. Please add some form of thrombocytopenia related to secondary cause of alcoholism. MTDD
--- NOTE | 2018-05-27 12:26 | CDI ---
Documentation Clarification Form Date: 05/27/2018 11:45:38 AM From: Chanel Mejia RN, CCDS Admit Date: 05/23/2018 12:13:00 PM Patient Name: Fred Kim Visit Number: [id number] Discharge Date: ATTENTION: The Clinical Documentation Specialists (CDI) and [facility] Coding Staff appreciate your assistance in clarifying documentation. Please respond to the clarification below the line at the bottom and electronically sign. The CDI & [facility] Coding staff will review the response and follow-up if needed. Please note: Queries are made part of the Legal Health Record. If you have any questions, please contact the author of this message via ITS. Dr. Noman Ramos CHF is documented in the progress notes on 05/24/18, Rule out CHF. History/Risk Factors: Hypertension, Pancreatitis Clinical Indicators: 58-year-old male who present with bilateral leg cellulitis and leg edema. Lungs: Breath sounds diminished in the bases. Few scattered rhonchi. VS/Pulse OX: 117/72 69 16 98.6 BNP: 632 Echocardiogram Results: EF greater than 55 % Chest X Ray: Mild cardiomegaly and interstitial prominence. Findings may reflect mild pulmonary vascular congestion. No dion pulmonary edema Treatment: Lasix 40 IV Daily In your professional opinion, can you please clarify the acuity and type of CHF if known? CHF ruled out Acute Diastolic Heart Failure: Acute on Chronic Diastolic Heart Failure Unable to Determine Other, please specify (Last Revision: July 2017) CHF ruled out. Please add to diagnoses MTDD
[2018-05-27] MEDS: MULTIVITAMINS, THERA 1 EACH TAB PO SCH (13:00)
--- NOTE | 2018-05-27 20:17 | PN ---
PROGRESS NOTE DATE OF SERVICE: 05/27/2018. REASON FOR FOLLOWUP: Left foot cellulitis with MSSA bacteremia. INTERVAL HISTORY: The patient is currently afebrile. He has been breathing comfortably. The patient denies having any chest pain or shortness of breath or cough. No abdominal pain. Left foot still has some swelling but some improvement in the pain. PHYSICAL EXAMINATION: Blood pressure is 96/54 with a pulse of 60, temperature 98.4. He is 94% on room air. General description is a middle-aged male lying in bed in no distress. RESPIRATORY SYSTEM: Unlabored breathing. Clear to auscultation anteriorly. HEART: S1, S2. Regular rate and rhythm. ABDOMEN: Soft. No tenderness. LEFT LEG: Foot swelling and redness slightly decreased. LABS: Hemoglobin is 10.1 with a white count of 2.9, BUN of 11, creatinine 0.57. Blood culture with MSSA. Blood culture repeat 05/24 has been negative so far. DIAGNOSTIC IMPRESSION AND PLAN: Patient with acute left foot cellulitis in this patient who did have methicillin- susceptible Staphylococcus aeruginosa bacteremia. CT was negative for any abscess or osteomyelitis. The patient will need cefazolin 2 grams q.8 for a total of 2 weeks from his negative blood culture, for which we will place a midline. Continue supportive care. MMODL / IJN: [id number] /
[2018-05-28] MEDS: ceFAZolin IN SWFI 2 GM/20 ML SYRINGE IVP SCH ×4 (00:04→23:53)
[2018-05-28] MEDS: HYDROcodone/APAP 5-325MG 1 EACH TAB PO PRN ×3 (01:44→17:58)
[2018-05-28 08:53] LABS: Anisocytosis Slight; Basophils % (A) 0 %; Eosinophils # (A) 0.1 k/uL (0-0.7); Eosinophils % (A) 6 %; HCT 30.8 % (39.0-53.0); Hypochromasia Slight; Lymphocytes # (A) 0.5 k/uL (1.0-4.8); Lymphocytes % (A) 23 %; MCH 31.9 pg (25.0-35.0); MCHC 32.5 g/dL (31.0-37.0); MCV 98.4 fL (80.0-100.0); Macrocytosis Slight; Monocytes # (A) 0.2 k/uL (0-1.0); Monocytes % (A) 8 %; Neutrophils # (A) 1.3 k/uL (1.3-7.7); Neutrophils % (A) 60 %; RBC 3.13 m/uL (4.30-5.90); RDW 16.2 % (11.5-15.5); WBC 2.2 k/uL (3.8-10.6)
[2018-05-28 09:13] LABS: Platelet Count 71 k/uL (150-450)
[2018-05-28] MEDS: PANTOPRAZOLE 40 MG TABLET PO SCH (09:16)
[2018-05-28] MEDS: BISOPROLOL-HCTZ 10-6.25 MG 1 EACH TAB PO SCH (09:17)
[2018-05-28] MEDS: HEPARIN SODIUM,PORCINE 5,000 UNIT/ML 1 ML VIAL SQ SCH ×2 (09:17→20:06)
[2018-05-28] MEDS: LOSARTAN 50 MG TAB PO SCH (09:17)
[2018-05-28 09:25] LABS: ALT 31 U/L (21-72); AST 47 U/L (17-59); Albumin 2.5 g/dL (3.5-5.0); Alkaline Phosphatase 84 U/L (38-126); Anion Gap 6 mmol/L; Blood Urea Nitrogen 13 mg/dL (9-20); Calcium 7.8 mg/dL (8.4-10.2); Carbon Dioxide 27 mmol/L (22-30); Chloride 98 mmol/L (98-107); Glucose 105 mg/dL (74-99); Potassium 4.2 mmol/L (3.5-5.1); Sodium 131 mmol/L (137-145); Total Bilirubin 1.6 mg/dL (0.2-1.3); Total Protein 6.2 g/dL (6.3-8.2)
[2018-05-28] MEDS: MULTIVITAMINS, THERA 1 EACH TAB PO SCH (11:22)
[2018-05-28] MEDS: FUROSEMIDE 10 MG/ML 4 ML VIAL IV SCH (11:22)
--- NOTE | 2018-05-28 20:36 | PN ---
PROGRESS NOTE DATE OF SERVICE: 05/28/2018. REASON FOR FOLLOWUP: Left foot cellulitis and MSSA bacteremia. INTERVAL HISTORY: The patient is currently afebrile. The patient has been breathing comfortably, left foot and leg swelling very slightly decreased, able to put a little bit of weight on it. Denies any chest pain or shortness of breath or cough. No abdominal pain or diarrhea. PHYSICAL EXAMINATION: Blood pressure 141/72 with a pulse of 52. Temperature 98.3. He is 97% on room air. General description is a middle aged male up in the bed in no distress. RESPIRATORY SYSTEM: Unlabored breathing. Clear to auscultation anteriorly. HEART: S1, S2. Regular rate and rhythm. ABDOMEN: Soft, no tenderness. Left foot and leg swelling and redness have slightly decreased. No drainage. LABS: Hemoglobin is 10 with white count 2.2, BUN of 13, creatinine 0.66. DIAGNOSTIC IMPRESSION AND PLAN: Patient with acute left foot cellulitis in this patient who did have MSSA bacteremia. The patient's CT was negative for any abscess or osteo. Patient currently on cefazolin 2 g daily for another 2 weeks with close outpatient followup. Jagdeep wrap to keep the swelling down. Continue supportive care. MMODL / IJN: [id number] / ARRON
[2018-05-28 20:37] VITALS: RESP 16
[2018-05-29 04:50] VITALS: BP 134/68; PULSE 66; TEMP 99
--- NOTE | 2018-05-29 07:46 | P.DS ---
Providers Date of admission: 05/23/18 12:13 Attending physician: Noman Ramos Consults: 05/23/18 12:06 Consult Physician Stat Consulting Provider: Geovanna Randle Consult Reason/Comments: Left leg cellulitis, fever Do you want consulting provider notified?: Yes Primary care physician: Noman Ramos - Discharge Diagnosis(es) (1) Left leg cellulitis Current Visit: Yes Status: Acute (2) Sepsis Current Visit: Yes Status: Acute (3) Thrombocytopenia Current Visit: Yes Status: Acute (4) Depression Current Visit: No Status: Chronic Priority: Medium (5) Financial problems Current Visit: No Status: Chronic Priority: High Hospital Course: This discharge summary 58-year-old white male essentially admitted for cellulitis with element of sepsis. Positive blood culture was noted. The patient is now treated with daily for the next 2 weeks. Because of his immobility and rehab potential, he hopefully will be transferred to [facility] for rehab facility. The patient will follow-up with me in approximately 3 weeks. Patient Condition at Discharge: Fair Plan - Discharge Summary New Discharge Prescriptions: New Cefazolin Sodium/D5w [Kefzol 2 Gm/D5w 100 ml] 2 gm IV DAILY #14 plast..bag No Action Losartan [Cozaar] 50 mg PO DAILY #30 tab Bisoprolol-Hctz 10-6.25 mg [Ziac 10-6.25 MG] 1 tab PO DAILY Discharge Medication List Losartan [Cozaar] 50 mg PO DAILY #30 tab 12/11/17 [Rx] Bisoprolol-Hctz 10-6.25 mg [Ziac 10-6.25 MG] 1 tab PO DAILY 05/23/18 [History] Cefazolin Sodium/D5w [Kefzol 2 Gm/D5w 100 ml] 2 gm IV DAILY #14 plast..bag 05/29 [Rx] Follow up Appointment(s)/Referral(s): Noman Ramos MD [Primary Care Provider] - 3 Weeks
[2018-05-29] MEDS ORDERED: guaiFENesin-DM 100-10MG/5ML 10 ML CUP PO PRN (07:58)
[2018-05-29] MEDS: PANTOPRAZOLE 40 MG TABLET PO SCH (08:20)
[2018-05-29] MEDS: BISOPROLOL-HCTZ 10-6.25 MG 1 EACH TAB PO SCH (08:20)
[2018-05-29] MEDS: HEPARIN SODIUM,PORCINE 5,000 UNIT/ML 1 ML VIAL SQ SCH (08:20)
[2018-05-29] MEDS: FUROSEMIDE 10 MG/ML 4 ML VIAL IV SCH (08:20)
[2018-05-29] MEDS: ceFAZolin IN SWFI 2 GM/20 ML SYRINGE IVP SCH (08:20)
[2018-05-29] MEDS: HYDROcodone/APAP 5-325MG 1 EACH TAB PO PRN (08:21)
[2018-05-29] MEDS: LOSARTAN 50 MG TAB PO SCH (08:21)
[2018-05-29] MEDS: MULTIVITAMINS, THERA 1 EACH TAB PO SCH (08:21)
--- NOTE | 2018-05-29 15:16 | PN ---
PROGRESS NOTE DATE OF SERVICE: 05/29/2018 REASON FOR FOLLOWUP: Left foot cellulitis with MSSA bacteremia. INTERVAL HISTORY: The patient is currently afebrile. The patient has been breathing comfortably. Denies having any chest pain any cough. No abdominal pain. Overall pain to the left foot is currently decreased. PHYSICAL EXAMINATION: Blood pressure 134/68 with a pulse of 66, temperature 99. He is 97% on room air. General description is a middle-aged male lying in bed in no distress. RESPIRATORY SYSTEM: Unlabored breathing. Clear to auscultation anteriorly. HEART: S1, S2. Regular rate and rhythm. ABDOMEN: Soft. No tenderness. Left foot swelling slightly decreased. No redness. LABS: No new labs have been obtained today. Blood culture from 05/24/2018 has been negative. DIAGNOSTIC IMPRESSION AND PLAN: Patient with left foot cellulitis. CT was negative for any osteomyelitis or an abscess. The patient did have MSSA bacteremia with repeat blood culture that has been negative. Patient is to continue with cefazolin 2 grams q.8 for another 2 weeks with close outpatient followup. Continue with Jagdeep wrap to keep the swelling down. Continue with supportive care. MMODL / IJN: [id number] /
== END 2018-05-29 15:50 | DRG 872 ==
LOC: EC 09:45 → 3NMEDONC 12:13
PROVIDERS: ADMIT Family Medicine; ATTEND Family Medicine
PROC: 05HD33Z Insertion of Infusion Device into Right Cephalic Vein, Percutaneous Approach (ICD-10-PCS; principal; 2018-05-28 08:00)
DX: A41.01 Sepsis due to Methicillin susceptible Staphylococcus aureus (principal); E87.1 Hypo-osmolality and hyponatremia; E87.2 Acidosis; L03.115 Cellulitis of right lower limb; L03.116 Cellulitis of left lower limb; D64.9 Anemia, unspecified; F32.9 Major depressive disorder, single episode, unspecified; I10 Essential (primary) hypertension; M10.9 Gout, unspecified; R56.9 Unspecified convulsions; Z59.9 Problem related to housing and economic circumstances, unspecified; Z79.899 Other long term (current) drug therapy; Z82.49 Family history of ischemic heart disease and other diseases of the circulatory system; Z82.3 Family history of stroke; D69.59 Other secondary thrombocytopenia
CPT/HCPCS: 36410; 36415; 71045; 76937; 80048; 80053; 80202; 81001; 83605; 83880; 84550; 85025; 85610; 85730; 86140; 87040; 87077; 87186; 87502; 93306; 96365; 96375; 99285

== ENCOUNTER → 2018-06-26 | Outpatient (CLI) | payer OTHER | END | disposition home or self-care (01) | LOC: LABWHC1 13:58 | PROVIDERS: ATTEND Internal Medicine Infectious Disease | DX: R78.81 Bacteremia (principal); B95.61 Methicillin susceptible Staphylococcus aureus infection as the cause of diseases classified elsewhere | CPT/HCPCS: 36415; 87040 ==

== ENCOUNTER 2019-11-23 14:50 | Inpatient (IN) | payer OTHER ==
[2019-11-23] MEDS ORDERED: IPRATROPIUM-ALBUTEROL 3 ML NEB INHALATION STA (15:18)
[2019-11-23] MEDS ORDERED: ACETAMINOPHEN TAB 500 MG TAB PO STA (15:18)
--- NOTE | 2019-11-23 15:21 | ED ---
General Adult HPI - General Chief complaint: Weakness Stated complaint: fatigue Time Seen by Provider: 11/23/19 15:01 Source: patient, RN notes reviewed Mode of arrival: wheelchair Limitations: no limitations - History of Present Illness Initial comments: Patient is a pleasant [age]-year-old male presenting to the emergency department with fatigue. Symptoms have been present and progressive over several days. Patient does have cough with clear sputum. Patient feels achy however did not notice fever at home. Patient does feel little short of breath. No history of COPD or asthma or similar lung problems. Patient has had decreased appetite and decreased solid food intake for the past couple of days. Patient states his urine does look somewhat dark. No dysuria. No abdominal pain. - Related Data Home Medications Medication Instructions Recorded Confirmed Bisoprolol-Hctz 10-6.25 mg [Ziac 1 tab PO DAILY 05/23/18 11/23/19 10-6.25 MG] Aspirin EC [Ecotrin Low Dose] 81 mg PO DAILY 11/23/19 11/23/19 Irbesartan [Avapro] 150 mg PO DAILY 11/23/19 11/23/19 Multivit-Min/FA/Lycopen/Lutein 1 tab PO DAILY 11/23/19 11/23/19 [Centrum Silver Men Tablet] Vitamin D3(Unknown Dose) 1 tab PO DAILY 11/23/19 11/23/19 Allergies Allergy/AdvReac Type Severity Reaction Status Date / Time lisinopril AdvReac causes Verified 11/23/19 15:50 pancreatitis Review of Systems ROS Statement: Those systems with pertinent positive or pertinent negative responses have been documented in the HPI. ROS Other: All systems not noted in ROS Statement are negative. Constitutional: Reports: as per HPI, chills Eyes: Denies: eye pain ENT: Denies: ear pain Respiratory: Reports: as per HPI, cough, dyspnea Cardiovascular: Denies: chest pain Endocrine: Reports: fatigue Gastrointestinal: Reports: nausea. Denies: abdominal pain Genitourinary: Reports: as per HPI Musculoskeletal: Denies: back pain Skin: Denies: rash Neurological: Denies: confusion Past Medical History Past Medical History: Hypertension Additional Past Medical History / Comment(s): pancreatitis-pt states pancreatitis was side effect from Lisinopril. History of Any Multi-Drug Resistant Organisms: None Reported Past Surgical History: No Surgical Hx Reported Additional Past Surgical History / Comment(s): . Past Anesthesia/Blood Transfusion Reactions: No Reported Reaction Past Psychological History: No Psychological Hx Reported Smoking Status: Never smoker Past Alcohol Use History: Occasional Past Drug Use History: None Reported - Past Family History Mother Family Medical History: Hypertension Father Family Medical History: CVA/TIA General Exam Limitations: physical limitation General appearance: alert, in no apparent distress Head exam: Present: normocephalic Eye exam: Present: normal appearance, PERRL Neck exam: Present: normal inspection Respiratory exam: Present: wheezes Cardiovascular Exam: Present: regular rate, normal rhythm GI/Abdominal exam: Present: soft. Absent: tenderness Extremities exam: Present: normal inspection. Absent: pedal edema, calf tend erness Neurological exam: Present: alert Psychiatric exam: Present: normal affect, normal mood Skin exam: Present: normal color Course Vital Signs 11/23/19 11/23/19 11/23/19 14:54 15:57 16:04 Temperature 102 F H Pulse Rate 85 79 81 Respiratory 18 18 18 Rate Blood Pressure 124/64 O2 Sat by Pulse 98 Oximetry 11/23/19 11/23/19 16:15 17:00 Temperature 103 F H Pulse Rate 80 76 Respiratory 20 18 Rate Blood Pressure 87/49 94/57 O2 Sat by Pulse 94 L 93 L Oximetry - Reevaluation(s) Reevaluation #1: 11/23/19 16:27 Patient does have borderline blood pressure. Patient was given fluid bolus of 30 mL/kg based off ideal body weight of 78 kg, calculated at 2350 mL. 11/23/19 16:30 Patient does meet sepsis criteria diagnosed at 1625. Blood culture and lactic acid have been ordered. IV fluid bolus ordered. IV antibiotics will be ordered. EKG Findings - EKG Comments: EKG Findings:: Normal sinus rhythm 83. LA 182. QRS 76. QT 370. QTc 434. Normal axis. Normal QRS. No acute ST change. Medical Decision Making - Medical Decision Making Patient reevaluated and updated. Blood pressure systolic is 94 after 1 L. 2 4:30 liters have been ordered. Case was discussed with Dr. Cho who patient requested secondary to change of insurance tumor guardian. Dr. Ramos is aware. Dr. Cho will admit. He does request CT chest abdomen pelvis and ICU admission. Dr. Elliott has been paged. - Lab Data Result diagrams: 11/23/19 15:14 11/23/19 15:14 Lab Results 11/23/19 11/23/19 11/23/19 Range/Units 15:14 15:14 15:14 WBC 24.9 H (3.8-10.6) k/uL RBC 4.08 L (4.30-5.90) m/uL Hgb 14.3 (13.0-17.5) gm/dL Hct 42.6 (39.0-53.0) % MCV 104.2 H (80.0-100.0) fL MCH 34.9 (25.0-35.0) pg MCHC 33.5 (31.0-37.0) g/dL RDW 13.9 (11.5-15.5) % Plt Count 90 L (150-450) k/uL Neutrophils % 90 % Lymphocytes % 2 % Monocytes % 5 % Eosinophils % 0 % Basophils % 0 % Neutrophils # 22.4 H (1.3-7.7) k/uL Lymphocytes # 0.5 L (1.0-4.8) k/uL Monocytes # 1.3 H (0-1.0) k/uL Eosinophils # 0.0 (0-0.7) k/uL Basophils # 0.0 (0-0.2) k/uL Macrocytosis Slight PT 14.7 H (9.0-12.0) sec INR 1.5 H (<1.2) APTT 26.5 (22.0-30.0) sec Sodium 122 L (137-145) mmol/L Potassium 3.9 (3.5-5.1) mmol/L Chloride 92 L (98-107) mmol/L Carbon Dioxide 19 L (22-30) mmol/L Anion Gap 11 mmol/L BUN 19 (9-20) mg/dL Creatinine 0.88 (0.66-1.25) mg/dL Est GFR (CKD-EPI)AfAm >90 (>60 ml/min/1.73 sqM) Est GFR (CKD-EPI)NonAf >90 (>60 ml/min/1.73 sqM) Glucose 101 H (74-99) mg/dL Plasma Lactic Acid Mason (0.7-2.0) mmol/L Calcium 7.7 L (8.4-10.2) mg/dL Magnesium 2.1 (1.6-2.3) mg/dL Total Bilirubin 9.3 H (0.2-1.3) mg/dL AST 96 H (17-59) U/L ALT 53 H (4-49) U/L Alkaline Phosphatase 129 H (38-126) U/L Lactate Dehydrogenase 686 H (313-618) U/L C-Reactive Protein 79.1 H (<10.0) mg/L Total Protein 7.2 (6.3-8.2) g/dL Albumin 3.2 L (3.5-5.0) g/dL 11/23/19 Range/Units 15:14 WBC (3.8-10.6) k/uL RBC (4.30-5.90) m/uL Hgb (13.0-17.5) gm/dL Hct (39.0-53.0) % MCV (80.0-100.0) fL MCH (25.0-35.0) pg MCHC (31.0-37.0) g/dL RDW (11.5-15.5) % Plt Count (150-450) k/uL Neutrophils % % Lymphocytes % % Monocytes % % Eosinophils % % Basophils % % Neutrophils # (1.3-7.7) k/uL Lymphocytes # (1.0-4.8) k/uL Monocytes # (0-1.0) k/uL Eosinophils # (0-0.7) k/uL Basophils # (0-0.2) k/uL Macrocytosis PT (9.0-12.0) sec INR (<1.2) APTT (22.0-30.0) sec Sodium (137-145) mmol/L Potassium (3.5-5.1) mmol/L Chloride (98-107) mmol/L Carbon Dioxide (22-30) mmol/L Anion Gap mmol/L BUN (9-20) mg/dL Creatinine (0.66-1.25) mg/dL Est GFR (CKD-EPI)AfAm (>60 ml/min/1.73 sqM) Est GFR (CKD-EPI)NonAf (>60 ml/min/1.73 sqM) Glucose (74-99) mg/dL Plasma Lactic Acid Mason 2.0 (0.7-2.0) mmol/L Calcium (8.4-10.2) mg/dL Magnesium (1.6-2.3) mg/dL Total Bilirubin (0.2-1.3) mg/dL AST (17-59) U/L ALT (4-49) U/L Alkaline Phosphatase (38-126) U/L Lactate Dehydrogenase (313-618) U/L C-Reactive Protein (<10.0) mg/L Total Protein (6.3-8.2) g/dL Albumin (3.5-5.0) g/dL - Radiology Data Radiology results: image reviewed (Chest x-ray shows right lower lobe infiltrate) Critical Care Time Critical Care Time: Yes Total Critical Care Time: 33 Disposition Clinical Impression: Sepsis, Pneumonia Disposition: ADMITTED IP TO THIS [facility] Condition: Serious Is patient prescribed a controlled substance at d/c from ED?: No Decision Time: 16:31
--- NOTE | 2019-11-23 16:01 | XR ---
EXAMINATION TYPE: XR chest 1V portable DATE OF EXAM: 11/23/2019 CLINICAL HISTORY: Suspected Covid 19 pneumonia. Weakness, fatigue, shortness of breath. TECHNIQUE: Portable upright view of the chest obtained. COMPARISON: 05/24/2018 chest radiograph FINDINGS: The cardiomediastinal silhouette is within normal limits for size. Pulmonary vasculature i s normal. There is asymmetric opacity of the right lung base. No pleural effusion. No evidence of pne umothorax. The osseous structures are intact. IMPRESSION: Asymmetric opacity over the right lung base, more than is expected for the overlying soft tissue. Findings may represent airspace opacity.
[2019-11-23 16:03] LABS: Basophils % (A) 0 %; Eosinophils % (A) 0 %; HCT 42.6 % (39.0-53.0); HGB 14.3 gm/dL (13.0-17.5); Lymphocytes # (A) 0.5 k/uL (1.0-4.8); Lymphocytes % (A) 2 %; MCH 34.9 pg (25.0-35.0); MCHC 33.5 g/dL (31.0-37.0); MCV 104.2 fL (80.0-100.0); Macrocytosis Slight; Mean Platelet Volume 7.8; Monocytes # (A) 1.3 k/uL (0-1.0); Monocytes % (A) 5 %; Neutrophils # (A) 22.4 k/uL (1.3-7.7); Neutrophils % (A) 90 %; RBC 4.08 m/uL (4.30-5.90); RDW 13.9 % (11.5-15.5); WBC 24.9 k/uL (3.8-10.6)
[2019-11-23 16:08] LABS: Platelet Count 90 k/uL (150-450)
[2019-11-23 16:10] LABS: ALT 53 U/L (4-49); AST 96 U/L (17-59); African American GFR (CKD) >90 (>60 ml/min/1.73 sqM); Albumin 3.2 g/dL (3.5-5.0); Alkaline Phosphatase 129 U/L (38-126); Anion Gap 11 mmol/L; Blood Urea Nitrogen 19 mg/dL (9-20); C Reactive Protein 79.1 mg/L (<10.0); Calcium 7.7 mg/dL (8.4-10.2); Carbon Dioxide 19 mmol/L (22-30); Chloride 92 mmol/L (98-107); Glucose 101 mg/dL (74-99); LDH 686 U/L (313-618); Magnesium 2.1 mg/dL (1.6-2.3); Non-African American GFR(CKD) >90 (>60 ml/min/1.73 sqM); Potassium 3.9 mmol/L (3.5-5.1); Sodium 122 mmol/L (137-145); Total Bilirubin 9.3 mg/dL (0.2-1.3); Total Protein 7.2 g/dL (6.3-8.2)
[2019-11-23 16:13] LABS: INR 1.5 (<1.2); Partial Thromboplastin Time 26.5 sec (22.0-30.0); Prothrombin Time 14.7 sec (9.0-12.0)
[2019-11-23] MEDS ORDERED: SODIUM CHLORIDE 0.9% 1,000 ML IV STA ×2 (16:25→16:27)
[2019-11-23] MEDS ORDERED: SODIUM CHLORIDE 0.9% 500 ML 500 ML IV STA (16:25)
[2019-11-23] MEDS ORDERED: IPRATROPIUM-ALBUTEROL 3 ML NEB INHALATION PRN (16:31)
[2019-11-23] MEDS ORDERED: AZITHROMYCIN 500 MG in SODIUM CHLORIDE 0.9% 250 ML IVPB STA (16:31)
[2019-11-23] MEDS ORDERED: PNEUMONIA PROTOCOL UTILIZED 1 EACH MISC PO PRN (16:31)
[2019-11-23 17:14] LABS: Amylase 40 U/L (30-110)
--- NOTE | 2019-11-23 17:17 | US ---
EXAMINATION TYPE: US gallbladder DATE OF EXAM: 11/23/2019 COMPARISON: NONE CLINICAL HISTORY: fever. elevated lft's, no abd symptoms EXAM MEASUREMENTS: Liver Length: 18.8 cm Gallbladder Wall: 0.5 cm CBD: 0.7 cm Right Kidney: 12.6 x 4.3 x 5.5 cm Pancreas: limited views appear wnl Liver: upper limits of normal for size, lobular contour, mild free fluid adjacent to right lobe Gallbladder: single stone seen = 1.5cm Evidence for sonographic Lemon's sign: no CBD: wnl Right Kidney: wnl IMPRESSION: There is a single large gallstone. There is mild gallbladder wall thickening suggestive of cholecysti tis. No dilation of the intrahepatic bile ducts. Large common bile duct suggestive of some gallbladde r dysfunction.
[2019-11-23 18:20] LABS: Glucose,Whole Blood 101 mg/dL (75-99)
--- NOTE | 2019-11-23 18:35 | CT ---
EXAMINATION TYPE: CT ChestAbdPelvis w con DATE OF EXAM: 11/23/2019 COMPARISON: None HISTORY: Pneumonia, sepsis, hyperbilirubinemia. CT DLP: 1957.4 mGycm Automated exposure control for dose reduction was used. CONTRAST: Performed with IV Contrast, patient injected with 100 mL of Isovue 300. Images were obtained from the thoracic inlet to the floor the pelvis with IV contrast. There is some airspace consolidation in the lateral aspect of the right upper lobe. The left lung is clear. There is no mediastinal adenopathy. There are no hilar masses. There is some coronary artery c alcification. There is no pleural effusion or pneumothorax. Liver is irregular suggestive of cirrhosis. Spleen is enlarged and measures 16 cm. There is no eviden ce of pancreatic mass. There is 1 cm gallstone. Gallbladder has normal size. The bile ducts are not d ilated. Stomach is intact. There is no adrenal mass. Kidneys show satisfactory contrast opacification. There is no hydronephrosi s. Ureters are not dilated. There is no retroperitoneal adenopathy. There is 3 x 2 cm umbilical herni a that contains fat. Bladder distends smoothly. There is no inguinal hernia. There is no free fluid i n the pelvis. There is no evidence of pelvic mass. There is no mesenteric edema. There is no ascites or free air. There is no evidence of bowel obstruct ion. There are some prominent veins at the umbilicus. Thoracic and lumbar vertebra appear intact without evidence of compression fracture. There is a degen erative mild first-degree L4-5 spondylolisthesis. IMPRESSION: Changes in the liver consistent with cirrhosis. Splenomegaly. There are some umbilical varices sugges tive of portal venous chronic hypertension. No evidence of portal vein thrombosis. Right upper lobe airspace consolidation in the lateral aspect consistent with bronchopneumonia.
[2019-11-23] MEDS: SODIUM CHLORIDE 0.9% 1,000 ML IV SCH (21:08)
--- NOTE | 2019-11-24 07:53 | XR ---
EXAMINATION TYPE: XR chest 1V DATE OF EXAM: 11/24/2019 COMPARISON: 11/23/2019 HISTORY: Cough TECHNIQUE: Single frontal view of the chest is obtained. FINDINGS: Large area of consolidation involving the right lower lung field. Left lung clear. No pleu ral effusion or pneumothorax. Heart size stable. IMPRESSION: Correlate for pneumonia stable in appearance.
[2019-11-24] MEDS: SODIUM CHLORIDE 0.9% 1,000 ML IV SCH ×3 (08:12→17:20)
[2019-11-24 08:51] LABS: Basophils % (A) 0 %; Eosinophils # (A) 0.2 k/uL (0-0.7); Eosinophils % (A) 2 %; HCT 35.1 % (39.0-53.0); HGB 11.7 gm/dL (13.0-17.5); Lymphocytes # (A) 0.4 k/uL (1.0-4.8); Lymphocytes % (A) 3 %; MCH 35.2 pg (25.0-35.0); MCHC 33.4 g/dL (31.0-37.0); MCV 105.5 fL (80.0-100.0); Macrocytosis Moderate; Mean Platelet Volume 7.9; Monocytes # (A) 0.8 k/uL (0-1.0); Monocytes % (A) 6 %; Neutrophils # (A) 10.5 k/uL (1.3-7.7); Neutrophils % (A) 86 %; RBC 3.33 m/uL (4.30-5.90); RDW 13.9 % (11.5-15.5); WBC 12.2 k/uL (3.8-10.6)
[2019-11-24 08:54] LABS: Platelet Count 76 k/uL (150-450)
[2019-11-24 09:15] LABS: African American GFR (CKD) >90 (>60 ml/min/1.73 sqM); Anion Gap 7 mmol/L; Blood Urea Nitrogen 19 mg/dL (9-20); Calcium 6.9 mg/dL (8.4-10.2); Carbon Dioxide 20 mmol/L (22-30); Chloride 100 mmol/L (98-107); Glucose 117 mg/dL (74-99); Non-African American GFR(CKD) >90 (>60 ml/min/1.73 sqM); Potassium 3.4 mmol/L (3.5-5.1); Sodium 127 mmol/L (137-145)
--- NOTE | 2019-11-24 10:03 | CONS ---
CONSULTATION PULMONARY/CRITICAL CARE CONSULTATION: DATE OF SERVICE: 11/24/2019 HISTORY OF PRESENT ILLNESS: This is a 59-year-old gentleman who presented to the emergency department on November 22. He apparently presented with fever, weakness, fatigue. The patient was not really eating or drinking very much. He had not been feeling well for about 5 or 6 days prior to admission. Finally got so bad, he had come in to be evaluated. In addition, he did have shortness of breath. He also complained of cough and chest congestion with occasional phlegm production. The patient was tested for haney virus in the emergency department. Those results are currently pending. Chest x-ray and CT scan showed a right-sided pneumonia. It is likely community-acquired. The patient is a lifelong nonsmoker. He does have a history of hypertension for which he is being treated. His current physician is Dr. Cho. He used to see Dr. Ramos. His only allergy is LISINOPRIL. Here in the ICU, the patient is on O2 at 2 L. He is getting saline at 130 mL an hour. He never required any vasopressor. He is currently on Rocephin and Zithromax for the pneumonia. He is feeling much better. His sodium was 122. CURRENT HOME MEDICATIONS: Include Ziac daily, aspirin, Avapro, multiple vitamins, and vitamin D3. ALLERGIES: LISINOPRIL. MEDICAL HISTORY: Only essential hypertension. The patient also has a history of pancreatitis secondary to previous use of lisinopril. SURGICAL HISTORY: Surgical history is denied. FAMILY HISTORY: Positive for mother with hypertension, a father with CVA. SOCIAL HISTORY: Negative for tobacco use. He drinks occasionally. No illicit drug use. 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 REVIEW OF SYSTEMS: CONSTITUTIONAL: Fatigue, weakness, fever. NEUROLOGIC: Negative. HEENT: Negative. CARDIOVASCULAR: Negative. PULMONARY: Shortness of breath, cough, chest congestion, occasional phlegm production. GI: Negative. : Negative. RHEUMATOLOGIC: Negative. IMMUNOLOGIC: Negative. ENDOCRINOLOGIC: Negative. DERMATOLOGIC: Negative. PHYSICAL EXAMINATION: VITAL SIGNS: Current vital signs are reviewed. Temperature is 98.7, heart rate 63, respiratory rate 18, blood pressure 130/63, mean 85, saturations are 95%. Appears in no acute distress. HEENT: Examination is grossly unremarkable. Nasal O2 in place. It is running at 2 L. NECK: Supple, full range of motion. No adenopathy. Neck veins are flat. CARDIOVASCULAR: Examination reveals regular rhythm and rate. S1, S2 normal. No S3, S4, or murmur. LUNGS: A few scattered rhonchi and wheezes. They were mostly noted on the right side. Left lung sounds are relatively clear. No crackles. ABDOMEN: Soft. Bowel sounds are heard. No masses or tenderness. EXTREMITIES: Intact. No cyanosis, clubbing, or edema. SKIN: Without rash. NEUROLOGIC: Examination is brief but nonfocal. LABS: Reviewed. White count 12.2, hemoglobin 11.7, hematocrit 35.1, platelet count 76,000. The electrolyte profile from today is still pending. From yesterday, sodium was 122, carbon dioxide 19, anion gap of 11. Kidney function normal. In addition, his bilirubin from yesterday was 9.3, calcium 7.7, AST 96, ALT 53, alkaline phosphatase 129, LDH 686, and C-reactive protein 79.1. Procalcitonin was elevated at 0.98. Microbiology is currently pending or negative. IMAGING: A chest x-ray shows right-sided infiltrate. Chest x-ray from today shows again an area of consolidation in the right lower lobe. CT scan of the chest, abdomen and pelvis showed changes in the liver consistent with cirrhosis. There is splenomegaly. There is some umbilical varices suggestive of portal venous hypertension. There is also right upper lobe airspace consolidation consistent with bronchopneumonia. The gallbladder ultrasound reveals a single large gallstone. There is mild gallbladder wall thickening suggestive of cholecystitis. MEDICATIONS: Reviewed. Currently he is on Zithromax, Rocephin, DuoNeb and saline IV. ASSESSMENT: 1. Right upper lobe bronchopneumonia. 2. Sepsis, stable. 3. Gallstone pancreatitis. 4. History of hypertension. PLAN: Currently, the patient is on good antibiotics in form of azithromycin and ceftriaxone. The patient will eventually need to be evaluated for possible cholecystectomy. Currently, he is being treated for the pneumonia. His clinical status is stable. We will continue to follow. He never required any pressors. We will continue with current medications. Repeat sodium today. No additional recommendations are made. Prognosis is guarded. His only medical problem is hypertension. MMODL / IJN: [id number] /
[2019-11-24 11:33] LABS: Glucose,Whole Blood 114 mg/dL (75-99)
[2019-11-24] MEDS: LOSARTAN 50 MG TAB PO SCH (11:49)
[2019-11-24] MEDS: BISOPROLOL-HCTZ 10-6.25 MG 1 EACH TAB PO SCH (11:49)
[2019-11-24] MEDS: ASPIRIN 81 MG PO SCH (11:49)
[2019-11-24] MEDS: MULTIVITAMINS, THERA 1 EACH TAB PO SCH (11:49)
[2019-11-24 13:19] LABS: Appearance,Urine Cloudy (Clear); Bacteria,Urine Rare /hpf; Bilirubin,Urine 1+ (Negative); Blood,Urine Large (Negative); Color,Urine Dark Brown; Glucose,Urine (UA) Negative (Negative); Ketones,Urine Negative (Negative); Leukocyte Esterase,Urine Negative (Negative); Nitrite,Urine Negative (Negative); Protein,Urine Trace (Negative); RBC,Urine >182 /hpf (0-5); Specific Gravity,Urine 1.022 (1.001-1.035); Urobilinogen,Urine >12.0 mg/dL (<2.0); WBC,Urine 6 /hpf (0-5)
[2019-11-24 16:36] LABS: Glucose,Whole Blood 108 mg/dL (75-99)
--- NOTE | 2019-11-24 16:48 | P.HPIM ---
History of Present Illness H&P Date: 11/23/19 Chief Complaint: Right lower lobe pneumonia/ Acute cholecystitis/liver cirrhosis This is a 59 year old male with a previous medical history significant for hypertension and hypertensive cardiovascular disease, hyperlipidemia, history of pancreatitis in the past along with prior history of sepsis due to cellulitis about 2 year ago, patient presented to the emergency department at [facility] after a week long of increased fatigue and generalized weakness associated with increased coughing with increased phlegm production, he has lost his appetite and has not been eating much, he denied any sick contact, he noticed that his urine is getting darker with nausea without any vomiting , and yesterday he had diarrhea and his son came and took him to the ER for evaluation, he had a CXR that showed right lower lobe pneumonia, and had leukocytosis with significant hyponatremia secondary to hypovolemia , his USof the abdomen suggesting of acute cholecystitis and gallstones , this was followed by CT chest/ Abdomen and pelvis that confirmed pneumonia and liver cirrhosis changes with splenomegaly, patient was admitted to the ICU and consultation for and Dr. Smith was obtained. Review of Systems Constitutional: Reports anorexia, Reports fatigue, Reports sweats, Reports weakness Eyes: denies blurred vision, denies bulging eye, denies decreased vision Ears: deny: decreased hearing Ears, nose, mouth and throat: Denies dysphagia, Denies neck lump, Denies sore throat Cardiovascular: Reports decreased exercise tolerance, Reports dyspnea on exertion, Reports shortness of breath, Denies chest pain, Denies leg edema, Denies lightheadedness, Denies rapid heart beat, Denies syncope Respiratory: Reports congestion, Reports cough, Reports cough with sputum, Reports respiratory infections, Reports sleep apnea, Denies hemoptysis, Denies home oxygen, Denies pain, Denies snoring, Denies wheezing Gastrointestinal: Reports bloating, Reports change in bowel habits, Reports dyspepsia, Reports early satiety, Reports indigestion, Reports jaundice, Reports loss of appetite, Reports nausea, Denies abdominal pain, Denies hematemesis, Denies hematochezia, Denies lactose intolerance, Denies melena, Denies vomiting Genitourinary: Reports nocturia, Denies dysuria Musculoskeletal: Denies myalgias Musculoskeletal: absent: ankle pain, ankle stiffness, ankle swelling, elbow pain, elbow stiffness, elbow swelling, foot pain, foot stiffness, foot swelling, hand pain, hand stiffness, hand swelling, hip pain, hip stiffness, hip swelling, knee pain, knee stiffness, knee swelling, shoulder pain, shoulder stiffness, shoulder swelling, wrist pain, wrist stiffness, wrist swelling Integumentary: Denies pruritus, Denies rash Neurological: Denies numbness, Denies weakness Psychiatric: Denies anxiety, Denies depression Endocrine: Denies fatigue, Denies weight change Past Medical History Past Medical History: Hypertension, Liver Disease Additional Past Medical History / Comment(s): pancreatitis-pt states pancreatitis was side effect from Lisinopril. History of Any Multi-Drug Resistant Organisms: None Reported Past Surgical History: No Surgical Hx Reported Additional Past Surgical History / Comment(s): . Past Anesthesia/Blood Transfusion Reactions: No Reported Reaction Past Psychological History: No Psychological Hx Reported Smoking Status: Never smoker Past Alcohol Use History: Occasional Additional Past Alcohol Use History / Comment(s): pt states he drinks no alcohol at this time. Past Drug Use History: None Reported - Past Family History Mother Family Medical History: Hypertension (Mother at the age of 91 from old age and had hypertension.) Father Family Medical History: CVA/TIA (Father at the age of 65 from CVA) Son(s) Family Medical History: No Reported History (2 sons no major medical issues.) Daughter(s) Family Medical History: No Reported History (one daughter no issues.) Medications and Allergies Home Medications Medication Instructions Recorded Confirmed Type Bisoprolol-Hctz 10-6.25 mg [Ziac 1 tab PO DAILY 05/23/18 11/23/19 History 10-6.25 MG] Aspirin EC [Ecotrin Low Dose] 81 mg PO DAILY 11/23/19 11/23/19 History Irbesartan [Avapro] 150 mg PO DAILY 11/23/19 11/23/19 History Multivit-Min/FA/Lycopen/Lutein 1 tab PO DAILY 11/23/19 11/23/19 History [Centrum Silver Men Tablet] Vitamin D3(Unknown Dose) 1 tab PO DAILY 11/23/19 11/23/19 History Allergies Allergy/AdvReac Type Severity Reaction Status Date / Time lisinopril AdvReac causes Verified 11/23/19 15:50 pancreatitis Physical Exam Vitals: Vital Signs Temp Pulse Resp BP Pulse Ox 11/24/19 04:00 18 11/24/19 02:00 63 18 130/63 95 11/24/19 01:00 63 16 141/66 96 11/24/19 00:00 98.7 F 65 18 134/67 95 11/23/19 23:29 62 15 134/67 94 L 11/23/19 23:00 64 13 134/67 95 11/23/19 22:00 64 16 95 11/23/19 21:00 67 13 96 11/23/19 20:00 99.1 F 67 11 L 94 L 11/23/19 19:30 70 16 95 11/23/19 19:20 73 20 95 11/23/19 19:10 75 21 93 L 11/23/19 19:00 75 21 94 L 11/23/19 18:50 70 14 148/77 95 11/23/19 18:40 74 13 141/71 95 11/23/19 18:30 75 22 148/83 95 11/23/19 18:20 84 32 H 89 L 11/23/19 18:18 75 18 118/61 97 11/23/19 17:30 73 18 105/66 94 L 11/23/19 17:20 99.9 F H 74 18 104/59 94 L 11/23/19 17:00 76 18 94/57 93 L 11/23/19 16:15 103 F H 80 20 87/49 94 L 11/23/19 16:04 81 18 11/23/19 15:57 79 18 11/23/19 14:54 102 F H 85 18 124/64 98 Intake and Output 11/23/19 11/24/19 11/24/19 22:59 06:59 14:59 Intake Total 650 1040 260 Balance 650 1040 260 Intake: IV 390 1040 260 0.9 390 1040 260 Intake, IV Titration 260 Amount Sodium Chloride 0.9% 1, 260 000 ml @ 130 mls/hr IV . Q7H42M [facility] Rx#:[id number] Other: # Voids 1 1 # Bowel Movements 1 Weight 111.13 kg 112.24 kg Physical Examination: HEENT: head is atraumatic normocephalic, pupils were equal round reactive to light and accommodations extra ocular muscle movements were intact, sclerae were deeply icteric, mucous membranes of the mouth are somewhat dry. Neck: supple no JVP or lymphadenopathy. Chest: decrease breath sounds at the bases with positive egophony to the right middle and right lower lobes, no chest wall tenderness or intercostal retractions. Heart: first heart sound is depressed, second heart sound is normal there is no gallop or murmur. Abdomen: soft distended positive for splenomegaly, positive for bowel sounds. Extremities: there is chronic skin changes due to prior stasis dermatitis and possible old cellulitis. Neurologic examination: patient is awake alert and oriented X3 CN II-XII are grossly intact , muscle power 5/5 in upper and lower extremities , deep tendon reflexes were normal. Results CBC & Chem 7: 11/24/19 08:34 11/24/19 08:34 Labs: Abnormal Lab Results - Last 24 Hours (Table) 11/23/19 11/23/19 11/23/19 Range/Units 15:14 15:14 15:14 WBC 24.9 H (3.8-10.6) k/uL RBC 4.08 L (4.30-5.90) m/uL Hgb (13.0-17.5) gm/dL Hct (39.0-53.0) % MCV 104.2 H (80.0-100.0) fL MCH (25.0-35.0) pg Plt Count 90 L (150-450) k/uL Neutrophils # 22.4 H (1.3-7.7) k/uL Lymphocytes # 0.5 L (1.0-4.8) k/uL Monocytes # 1.3 H (0-1.0) k/uL PT 14.7 H (9.0-12.0) sec INR 1.5 H (<1.2) Sodium 122 L (137-145) mmol/L Potassium (3.5-5.1) mmol/L Chloride 92 L (98-107) mmol/L Carbon Dioxide 19 L (22-30) mmol/L Creatinine (0.66-1.25) mg/dL Glucose 101 H (74-99) mg/dL POC Glucose (mg/dL) (75-99) mg/dL Calcium 7.7 L (8.4-10.2) mg/dL Total Bilirubin 9.3 H (0.2-1.3) mg/dL AST 96 H (17-59) U/L ALT 53 H (4-49) U/L Alkaline Phosphatase 129 H (38-126) U/L Lactate Dehydrogenase 686 H (313-618) U/L C-Reactive Protein 79.1 H (<10.0) mg/L Albumin 3.2 L (3.5-5.0) g/dL Procalcitonin (0.02-0.09) ng/mL 11/23/19 11/23/19 11/24/19 Range/Units 15:14 18:18 08:34 WBC (3.8-10.6) k/uL RBC (4.30-5.90) m/uL Hgb (13.0-17.5) gm/dL Hct (39.0-53.0) % MCV (80.0-100.0) fL MCH (25.0-35.0) pg Plt Count (150-450) k/uL Neutrophils # (1.3-7.7) k/uL Lymphocytes # (1.0-4.8) k/uL Monocytes # (0-1.0) k/uL PT (9.0-12.0) sec INR (<1.2) Sodium 127 L (137-145) mmol/L Potassium 3.4 L (3.5-5.1) mmol/L Chloride (98-107) mmol/L Carbon Dioxide 20 L (22-30) mmol/L Creatinine 0.64 L (0.66-1.25) mg/dL Glucose 117 H (74-99) mg/dL POC Glucose (mg/dL) 101 H (75-99) mg/dL Calcium 6.9 L (8.4-10.2) mg/dL Total Bilirubin (0.2-1.3) mg/dL AST (17-59) U/L ALT (4-49) U/L Alkaline Phosphatase (38-126) U/L Lactate Dehydrogenase (313-618) U/L C-Reactive Protein (<10.0) mg/L Albumin (3.5-5.0) g/dL Procalcitonin 0.98 H (0.02-0.09) ng/mL 11/24/19 Range/Units 08:34 WBC 12.2 H (3.8-10.6) k/uL RBC 3.33 L (4.30-5.90) m/uL Hgb 11.7 L (13.0-17.5) gm/dL Hct 35.1 L (39.0-53.0) % MCV 105.5 H (80.0-100.0) fL MCH 35.2 H (25.0-35.0) pg Plt Count 76 L (150-450) k/uL Neutrophils # 10.5 H (1.3-7.7) k/uL Lymphocytes # 0.4 L (1.0-4.8) k/uL Monocytes # (0-1.0) k/uL PT (9.0-12.0) sec INR (<1.2) Sodium (137-145) mmol/L Potassium (3.5-5.1) mmol/L Chloride (98-107) mmol/L Carbon Dioxide (22-30) mmol/L Creatinine (0.66-1.25) mg/dL Glucose (74-99) mg/dL POC Glucose (mg/dL) (75-99) mg/dL Calcium (8.4-10.2) mg/dL Total Bilirubin (0.2-1.3) mg/dL AST (17-59) U/L ALT (4-49) U/L Alkaline Phosphatase (38-126) U/L Lactate Dehydrogenase (313-618) U/L C-Reactive Protein (<10.0) mg/L Albumin (3.5-5.0) g/dL Procalcitonin (0.02-0.09) ng/mL Thrombosis Risk Factor Assmnt - DVT/VTE Prophylaxis DVT/VTE Prophylaxis: Pharmacologic Prophylaxis ordered, Mechanical Prophylaxis ordered Assessment and Plan Assessment: Assessment and plan: 1. Right lower lobe pneumonia with sepsis. we will continue with IVF normal saline 130 ml/ h and we will continue with Rocephin 1 gr IVPB daily along with Zithromax 500 mg IVPB daily, sputum cultures and blood cultures, we will check COVID-19 as well, we will consult pulmonary , we will contiue with O2 support and Nebulized treatment Duoneb 3 ml QID. 2. severe hypovolemic hyponatremia. we will continue with IVF with NS at 130 ml/h and we will continue to monitor labs very closely. 3. Leukocytosis due to pneumonia with sepsis. we will continue with IVF and IV antibiotics and repeat CBC in AM. 4. 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 we will check hepatitis panel and ferritin level, and Alpha Feto Protein, patient does not think he has issues with alcohol. 5. History of pancreatitis in the past . stable. 6. Hypertension and hypertensive cardiovascular disease. we will continue with Losartan 50 mg orally daily and Bisoprolol 10 mg orally daily no HCTZ. 7. Thrombocytopenia. likely related to lver cirrhosis. 8. DVT prophylaxis. we will start Heparin 5000 units SC q 12 hours. 9. GI prophylaxis. we will continue with protonix 40 mg orally daily. 10. Admit to inpatient estimated length of stay is 2 midnights. 11. Full code.
[2019-11-24] MEDS: AZITHROMYCIN 500 MG TAB PO SCH (17:20)
[2019-11-24 19:33] LABS: Ferritin 509.4 ng/mL (22.0-322.0)
[2019-11-24 20:42] LABS: Glucose,Whole Blood 121 mg/dL (75-99)
[2019-11-24 21:32] LABS: Hepatitis A Antibody IgM Non-Reactive (Non-Reactive); Hepatitis B Core IgM Non-Reactive (Non-Reactive); Hepatitis B Surface Antigen Non-Reactive (Non-Reactive); Hepatitis C IgG Antibody Non-Reactive (Non-Reactive)
[2019-11-25] MEDS: SODIUM CHLORIDE 0.9% 1,000 ML IV SCH ×4 (00:10→08:28)
--- NOTE | 2019-11-25 03:10 | CONS ---
CONSULTATION DATE OF DICTATION: 11/24/2019 REASON FOR CONSULTATION: Elevated LFTs and possible cirrhosis. HISTORY OF PRESENT ILLNESS: The patient is a 59-year-old pleasant white male with history of hypertension, hyperlipidemia, was admitted to the hospital because of increasing fatigue, shortness of breath, coughing with sputum production for the last 2 or 3 days duration. He came into the emergency room and he had chest x-ray done that showed right lower lobe pneumonia and was also noted to have leukocytosis. He was subsequently admitted to the hospital for pneumonia and presently on broad-spectrum antibiotics. At the time of admission hospital, he was also noted to have elevated LFTs and jaundice. T-bilirubin was 9. ALT and AST were slightly elevated. He did have a CT of the abdomen and pelvis done that showed evidence of nodular-appearing liver consistent with liver cirrhosis and changes consistent with portal hypertension and splenomegaly. Also, he was noted to have pneumonia presently getting antibiotics. He was initially in ICU was just transferred to the floor. Overall he is feeling better. The coughing has subsided. Shortness of breath has improved. The patient has no history of chronic liver disease. No history of jaundice or hepatitis in the past. No family history of chronic liver disease. He denies taking any new medications recently. He admits to drinking alcohol 2 to 3 beers a day about 5 days a week for several years. He denies ever being alcoholic in the past. No history of chronic liver disease. PAST MEDICAL HISTORY: Hypertension, history of pancreatitis. PAST SURGICAL HISTORY: None. MEDICATIONS: Medications at home include aspirin, Avapro, Centrum Silver, vitamin D3, Ziac. ALLERGIES: LISINOPRIL. SOCIAL HISTORY: No smoking. Alcohol use with moderate amount of drinking about 15 to 20 beers on a weekly basis for several years. FAMILY HISTORY: Mother was diagnosed with hypertension. Father had CAD. REVIEW OF SYSTEMS: CARDIOPULMONARY: No chest pain or shortness of breath. GENITOURINARY: No dysuria or hematuria. MUSCULOSKELETAL: Unremarkable. SKIN: Unremarkable. ENDOCRINE: Unremarkable. PSYCHIATRY: Unremarkable. NEUROLOGY: Unremarkable. ENT/VISION: Unremarkable. CONSTITUTIONAL: No recent weight loss. No fever, chills, night sweats. PHYSICAL EXAMINATION: He appears comfortable, no apparent distress. Vital signs are stable. Blood pressure is 123/71, pulse rate 67, temperature 98. HEENT EXAMINATION: Unremarkable. Conjunctivae pink. Sclerae icteric. Oral cavity, no lesions. NECK: No JVD or lymph node enlargement. CHEST: Clear to auscultation. HEART: Regular rate and rhythm. ABDOMEN: Soft. Liver was palpable 2 cm below the right costal margin. Spleen was not palpable. EXTREMITIES: No pedal edema. NEURO: He is alert and oriented x3. No focal deficits. LABS: WBC 12.2, hemoglobin 11.7, platelets 76. MCV is 104. INR 1.5. AST 96, ALT 53, alkaline phosphatase 129, T bilirubin is 9.3. Ferritin is 509. Amylase and lipase are normal. CT of the abdomen done last night did show nodular appearing liver consistent with liver cirrhosis. Evidence of splenomegaly. Small umbilical varices suggestive of portal venous hypertension. Right upper lobe consolidation consistent with pneumonia. IMPRESSION: 1. Right upper lobe pneumonia on broad-spectrum antibiotics doing well. 2. Cirrhosis of the liver noted on imaging studies in this patient with no history of chronic liver disease. He does have history of moderate drinking and usually consumes about 15 to 20 beers on a weekly basis for the last 20 to 30 years duration. His biochemical parameters are very consistent with alcoholic liver disease resulting in possible cirrhosis with portal hypertension. However, other etiologies of chronic liver disease needs to be considered. 3. Elevated LFTs and jaundice as well as coagulopathy, all consistent with alcoholic liver disease. Rule out other etiologies. 4. Portal hypertension. RECOMMENDATIONS: I had a lengthy discussion with the patient regarding possible etiologies for chronic liver disease and most likely in his case would be related to alcohol use. I recommended abstinence from alcohol. In the meantime, we will initiate workup for chronic liver disease. Obtain hepatitis serologies for A, B and C, autoimmune markers as well as alpha fetoprotein. Repeat labs in the morning. Will follow with you closely. Thank you for this consultation. MMODL / IJN: [id number] /
[2019-11-25 07:20] LABS: Basophils % (A) 0 %; Eosinophils # (A) 0.2 k/uL (0-0.7); Eosinophils % (A) 2 %; HCT 39.8 % (39.0-53.0); HGB 12.9 gm/dL (13.0-17.5); Lymphocytes # (A) 0.6 k/uL (1.0-4.8); Lymphocytes % (A) 7 %; MCH 34.7 pg (25.0-35.0); MCHC 32.6 g/dL (31.0-37.0); MCV 106.6 fL (80.0-100.0); Macrocytosis Moderate; Mean Platelet Volume 7.7; Monocytes # (A) 0.4 k/uL (0-1.0); Monocytes % (A) 4 %; Neutrophils # (A) 7.8 k/uL (1.3-7.7); Neutrophils % (A) 84 %; Platelet Count 108 k/uL (150-450); RBC 3.73 m/uL (4.30-5.90); WBC 9.3 k/uL (3.8-10.6)
[2019-11-25 07:37] LABS: Glucose 99 mg/dL (74-99)
[2019-11-25 07:38] LABS: Glucose,Whole Blood 108 mg/dL (75-99)
[2019-11-25 07:41] LABS: ALT 102 U/L (4-49); AST 185 U/L (17-59); African American GFR (CKD) >90 (>60 ml/min/1.73 sqM); Albumin 2.7 g/dL (3.5-5.0); Alkaline Phosphatase 126 U/L (38-126); Anion Gap 6 mmol/L; Blood Urea Nitrogen 13 mg/dL (9-20); Calcium 6.8 mg/dL (8.4-10.2); Carbon Dioxide 25 mmol/L (22-30); Chloride 99 mmol/L (98-107); Non-African American GFR(CKD) >90 (>60 ml/min/1.73 sqM); Potassium 3.9 mmol/L (3.5-5.1); Sodium 130 mmol/L (137-145); Total Bilirubin 3.9 mg/dL (0.2-1.3); Total Protein 6.4 g/dL (6.3-8.2)
[2019-11-25] MEDS: MULTIVITAMINS, THERA 1 EACH TAB PO SCH (08:29)
[2019-11-25] MEDS: BISOPROLOL-HCTZ 10-6.25 MG 1 EACH TAB PO SCH (08:29)
[2019-11-25] MEDS: ASPIRIN 81 MG PO SCH (08:29)
[2019-11-25] MEDS: LOSARTAN 50 MG TAB PO SCH (08:29)
--- NOTE | 2019-11-25 11:13 | P.PN ---
Subjective Progress Note Date: 11/25/19 Principal diagnosis: Right lung bronchopneumonia The patient is seen today 11/25/2019 in follow-up on the regular medical floor. He is currently sitting up in bed. Awake and alert in no acute distress. Feeling about the same as compared to yesterday. No real improvement. He is maintaining O2 saturations in the 90s on 2 L/m per nasal cannula. He's been afebrile. Hemodynamically stable. Blood culture reveals no growth to date. White count 9.3. Hemoglobin 12.9. Sodium 1:30. Potassium 3.9. Creatinine 0.57. AST 185. ALT 102. Hepatitis screen negative. He remains on ceftriaxone and azithromycin. Bronchodilators as needed. Objective - Vital Signs Vital signs: Vital Signs Temp 98.2 F 11/25/19 06:59 Pulse 68 11/25/19 06:59 Resp 18 11/25/19 06:59 BP 133/79 11/25/19 06:59 Pulse Ox 94 L 11/25/19 06:59 Intake & Output 11/24/19 11/25/19 11/25/19 18:59 06:59 18:59 Intake Total 260 1690 Balance 260 1690 Intake: IV 260 0.9 260 Intake, IV Titration 1450 Amount Sodium Chloride 0.9% 1, 1450 000 ml @ 130 mls/hr IV . Q7H42M [facility] Rx#:[id number] Oral 240 Other: Voiding Method Urinal Toilet Toilet Urinal Urinal # Voids 1 1 # Bowel Movements 1 - Exam GENERAL EXAM: Alert, pleasant 59-year-old gentleman, on 2 L nasal cannula, comfortable in no apparent distress. HEAD: Normocephalic. EYES: Normal reaction of pupils, equal size. NOSE: Clear with pink turbinates. THROAT: No erythema or exudates. NECK: No masses, no JVD. CHEST: No chest wall deformity. LUNGS: Equal air entry with scattered rhonchi more so on the right lung CVS: S1 and S2 normal with no audible murmur, regular rhythm. ABDOMEN: No hepatosplenomegaly, normal bowel sounds, no guarding or rigidity. SPINE: No scoliosis or deformity SKIN: No rashes CENTRAL NERVOUS SYSTEM: No focal deficits, tone is normal in all 4 extremities. EXTREMITIES: There is no peripheral edema. No clubbing, no cyanosis. Peripheral pulses are intact. - Labs CBC & Chem 7: 11/25/19 06:41 11/25/19 06:41 Labs: Abnormal Lab Results - Last 24 Hours (Table) 11/23/19 11/24/19 11/24/19 Range/Units 15:14 11:30 13:00 RBC (4.30-5.90) m/uL Hgb (13.0-17.5) gm/dL MCV (80.0-100.0) fL Plt Count (150-450) k/uL Neutrophils # (1.3-7.7) k/uL Lymphocytes # (1.0-4.8) k/uL Sodium (137-145) mmol/L Creatinine (0.66-1.25) mg/dL POC Glucose (mg/dL) 114 H (75-99) mg/dL Calcium (8.4-10.2) mg/dL Ferritin 509.4 H (22.0-322.0) ng/mL Total Bilirubin (0.2-1.3) mg/dL AST (17-59) U/L ALT (4-49) U/L Albumin (3.5-5.0) g/dL Urine Protein Trace H (Negative) Urine Blood Large H (Negative) Urine Bilirubin 1+ H (Negative) Urine RBC >182 H (0-5) /hpf Urine WBC 6 H (0-5) /hpf Urine Bacteria Rare H (None) /hpf 11/24/19 11/24/19 11/24/19 Range/Units 13:17 16:35 20:41 RBC (4.30-5.90) m/uL Hgb (13.0-17.5) gm/dL MCV (80.0-100.0) fL Plt Count (150-450) k/uL Neutrophils # (1.3-7.7) k/uL Lymphocytes # (1.0-4.8) k/uL Sodium (137-145) mmol/L Creatinine (0.66-1.25) mg/dL POC Glucose (mg/dL) 108 H 121 H (75-99) mg/dL Calcium (8.4-10.2) mg/dL Ferritin 469.6 H (22.0-322.0) ng/mL Total Bilirubin (0.2-1.3) mg/dL AST (17-59) U/L ALT (4-49) U/L Albumin (3.5-5.0) g/dL Urine Protein (Negative) Urine Blood (Negative) Urine Bilirubin (Negative) Urine RBC (0-5) /hpf Urine WBC (0-5) /hpf Urine Bacteria (None) /hpf 11/25/19 11/25/19 11/25/19 Range/Units 06:41 06:41 06:57 RBC 3.73 L (4.30-5.90) m/uL Hgb 12.9 L (13.0-17.5) gm/dL MCV 106.6 H (80.0-100.0) fL Plt Count 108 L (150-450) k/uL Neutrophils # 7.8 H (1.3-7.7) k/uL Lymphocytes # 0.6 L (1.0-4.8) k/uL Sodium 130 L (137-145) mmol/L Creatinine 0.57 L (0.66-1.25) mg/dL POC Glucose (mg/dL) 108 H (75-99) mg/dL Calcium 6.8 L (8.4-10.2) mg/dL Ferritin (22.0-322.0) ng/mL Total Bilirubin 3.9 H (0.2-1.3) mg/dL AST 185 H (17-59) U/L ALT 102 H (4-49) U/L Albumin 2.7 L (3.5-5.0) g/dL Urine Protein (Negative) Urine Blood (Negative) Urine Bilirubin (Negative) Urine RBC (0-5) /hpf Urine WBC (0-5) /hpf Urine Bacteria (None) /hpf Microbiology - Last 24 Hours (Table) 11/23/19 15:14 Blood Culture - Preliminary Blood No Growth after 24 hours Assessment and Plan Assessment: Acute community-acquired right lung pneumonia Acute hypoxemic respiratory failure secondary to above Gallstone pancreatitis Sepsis secondary to above Liver cirrhosis Previous history of pancreatitis Alcohol use Hypertension Plan: The patient was seen and evaluated by Dr. Kaye Continue the current treatment plan Repeat chest x-ray in a.m. Titrate down the FiO2 as tolerated We'll continue to follow I, the cosigning physician, performed a history & physical examination of the patient. Lungs sounds with scattered rhonchi more so on the right. Maintaining good O2 saturations in the 90s on 2 L/m per nasal cannula. I discussed the assessment and plan of care with my nurse practitioner, Zaida Moon. I attest to the above note as dictated by her.
--- NOTE | 2019-11-25 12:15 | P.PN ---
Subjective Progress Note Date: 11/24/19 This is a 59 year old male with a previous medical history significant for hypertension and hypertensive cardiovascular disease, hyperlipidemia, history of pancreatitis in the past along with prior history of sepsis due to cellulitis about 2 year ago, patient presented to the emergency department at [facility] after a week long of increased fatigue and generalized weakness associated with increased coughing with increased phlegm production, he has lost his appetite and has not been eating much, he denied any sick contact, he noticed that his urine is getting darker with nausea without any vomiting , and yesterday he had diarrhea and his son came and took him to the ER for evaluation, he had a CXR that showed right lower lobe pneumonia, and had leukocytosis with significant hyponatremia secondary to hypovolemia , his USof the abdomen suggesting of acute cholecystitis and gallstones , this was followed by CT chest/ Abdomen and pelvis that confirmed pneumonia and liver cirrhosis changes with splenomegaly, patient was admitted to the ICU and consultation for and Dr. Smith was obtained. 11/23: Patient has been transferred out of the intensive care unit and is seen t fermin on the [facility] floor. He has been afebrile since admission, blood pressure 139/75, pulse ox 94% on room air, heart rate 69. Repeat blood work reveals improving leukocytosis at 12.2, hemoglobin is 11.7, platelet count 76. Sodium improved to 127, potassium 3.4 and has been replaced, chloride 100, CO2 20, BUN 19 and creatinine 0.64. Blood sugars running between 101 and 117. Calcium 6.9. Patient states that he is feeling much better from yesterday. Patient complains of cough with sputum production. Patient has been seen by Dr. Kaye and legionella mycoplasma testing added. Coronavirus testing remains pending. Blood culture is status received. He is currently on antibiotics the form of azathioprine myosin and ceftriaxone. Sputum culture to be obtained. We have also added and alpha-fetoprotein tumor marker, ferritin level, viral hepatitis panel and consult with GI. Patient has been seen by Dr. Castaneda on previous admissions for acute pancreatitis. Objective - Vital Signs Vital signs: Vital Signs Temp 98.3 F 11/24/19 11:19 Pulse 69 11/24/19 11:19 Resp 18 11/24/19 11:19 BP 139/75 11/24/19 11:19 Pulse Ox 94 L 11/24/19 11:19 Intake & Output 11/23/19 11/24/19 11/24/19 18:59 06:59 18:59 Intake Total 130 1560 260 Balance 130 1560 260 Weight 111.13 kg 112.24 kg Intake: IV 1430 260 0.9 1430 260 Intake, IV Titration 130 130 Amount Sodium Chloride 0.9% 1, 130 130 000 ml @ 130 mls/hr IV . Q7H42M [facility] Rx#:[id number] Other: # Voids 1 # Bowel Movements 1 - Exam Review of Systems Constitutional: Reports anorexia, Reports fatigue, Reports sweats, Reports weakness Eyes: denies blurred vision, denies bulging eye, denies decreased vision Ears, nose, mouth and throat: Denies dysphagia, Denies neck lump, Denies sore throat Cardiovascular: Reports decreased exercise tolerance, Reports dyspnea on exertion, Reports shortness of breath, Denies chest pain, Denies leg edema, Denies lightheadedness, Denies rapid heart beat, Denies syncope Respiratory: Reports congestion, Reports cough, Reports cough with sputum, Reports respiratory infections, Reports sleep apnea, Denies hemoptysis, Denies home oxygen, Denies pain, Denies snoring, Denies wheezing Gastrointestinal: Reports bloating, Reports change in bowel habits, Reports dyspepsia, Reports early satiety, Reports indigestion, Reports jaundice, Reports loss of appetite, Reports nausea, Denies abdominal pain, Denies hematemesis, Denies hematochezia, Denies lactose intolerance, Denies melena, Denies vomiting Genitourinary: Reports nocturia, Denies dysuria Musculoskeletal: Denies myalgias Musculoskeletal: absent: ankle pain, ankle stiffness, ankle swelling, elbow pain, elbow stiffness, elbow swelling, foot pain, foot stiffness, foot swelling, hand pain, hand stiffness, hand swelling, hip pain, hip stiffness, hip swelling, knee pain, knee stiffness, knee swelling, shoulder pain, shoulder stiffness, shoulder swelling, wrist pain, wrist stiffness, wrist swelling Integumentary: Denies pruritus, Denies rash Neurological: Denies numbness, Denies weakness Psychiatric: Denies anxiety, Denies depression Endocrine: Denies fatigue, Denies weight change Physical Examination: HEENT: head is atraumatic normocephalic, pupils were equal round reactive to lig ht and accommodations extra ocular muscle movements were intact, sclerae were deeply icteric, mucous membranes of the mouth are somewhat dry. Neck: supple no JVP or lymphadenopathy. Chest: decrease breath sounds at the bases with positive egophony to the right middle and right lower lobes, no chest wall tenderness or intercostal retractions. Heart: first heart sound is depressed, second heart sound is normal there is no gallop or murmur. Abdomen: soft distended positive for splenomegaly, positive for bowel sounds. Extremities: chronic skin changes due to prior stasis dermatitis and possible old cellulitis. Neurologic examination: patient is awake alert and oriented X3 CN II-XII are saw ssly intact , muscle power 5/5 in upper and lower extremities , deep tendon reflexes were normal. - Labs CBC & Chem 7: 11/25/19 06:41 11/25/19 06:41 Labs: Abnormal Lab Results - Last 24 Hours (Table) 11/23/19 11/23/19 11/23/19 Range/Units 15:14 15:14 15:14 WBC 24.9 H (3.8-10.6) k/uL RBC 4.08 L (4.30-5.90) m/uL Hgb (13.0-17.5) gm/dL Hct (39.0-53.0) % MCV 104.2 H (80.0-100.0) fL MCH (25.0-35.0) pg Plt Count 90 L (150-450) k/uL Neutrophils # 22.4 H (1.3-7.7) k/uL Lymphocytes # 0.5 L (1.0-4.8) k/uL Monocytes # 1.3 H (0-1.0) k/uL PT 14.7 H (9.0-12.0) sec INR 1.5 H (<1.2) Sodium 122 L (137-145) mmol/L Potassium (3.5-5.1) mmol/L Chloride 92 L (98-107) mmol/L Carbon Dioxide 19 L (22-30) mmol/L Creatinine (0.66-1.25) mg/dL Glucose 101 H (74-99) mg/dL POC Glucose (mg/dL) (75-99) mg/dL Calcium 7.7 L (8.4-10.2) mg/dL Total Bilirubin 9.3 H (0.2-1.3) mg/dL AST 96 H (17-59) U/L ALT 53 H (4-49) U/L Alkaline Phosphatase 129 H (38-126) U/L Lactate Dehydrogenase 686 H (313-618) U/L C-Reactive Protein 79.1 H (<10.0) mg/L Albumin 3.2 L (3.5-5.0) g/dL Procalcitonin (0.02-0.09) ng/mL 11/23/19 11/23/19 11/24/19 Range/Units 15:14 18:18 08:34 WBC (3.8-10.6) k/uL RBC (4.30-5.90) m/uL Hgb (13.0-17.5) gm/dL Hct (39.0-53.0) % MCV (80.0-100.0) fL MCH (25.0-35.0) pg Plt Count (150-450) k/uL Neutrophils # (1.3-7.7) k/uL Lymphocytes # (1.0-4.8) k/uL Monocytes # (0-1.0) k/uL PT (9.0-12.0) sec INR (<1.2) Sodium 127 L (137-145) mmol/L Potassium 3.4 L (3.5-5.1) mmol/L Chloride (98-107) mmol/L Carbon Dioxide 20 L (22-30) mmol/L Creatinine 0.64 L (0.66-1.25) mg/dL Glucose 117 H (74-99) mg/dL POC Glucose (mg/dL) 101 H (75-99) mg/dL Calcium 6.9 L (8.4-10.2) mg/dL Total Bilirubin (0.2-1.3) mg/dL AST (17-59) U/L ALT (4-49) U/L Alkaline Phosphatase (38-126) U/L Lactate Dehydrogenase (313-618) U/L C-Reactive Protein (<10.0) mg/L Albumin (3.5-5.0) g/dL Procalcitonin 0.98 H (0.02-0.09) ng/mL 11/24/19 11/24/19 Range/Units 08:34 11:30 WBC 12.2 H (3.8-10.6) k/uL RBC 3.33 L (4.30-5.90) m/uL Hgb 11.7 L (13.0-17.5) gm/dL Hct 35.1 L (39.0-53.0) % MCV 105.5 H (80.0-100.0) fL MCH 35.2 H (25.0-35.0) pg Plt Count 76 L (150-450) k/uL Neutrophils # 10.5 H (1.3-7.7) k/uL Lymphocytes # 0.4 L (1.0-4.8) k/uL Monocytes # (0-1.0) k/uL PT (9.0-12.0) sec INR (<1.2) Sodium (137-145) mmol/L Potassium (3.5-5.1) mmol/L Chloride (98-107) mmol/L Carbon Dioxide (22-30) mmol/L Creatinine (0.66-1.25) mg/dL Glucose (74-99) mg/dL POC Glucose (mg/dL) 114 H (75-99) mg/dL Calcium (8.4-10.2) mg/dL Total Bilirubin (0.2-1.3) mg/dL AST (17-59) U/L ALT (4-49) U/L Alkaline Phosphatase (38-126) U/L Lactate Dehydrogenase (313-618) U/L C-Reactive Protein (<10.0) mg/L Albumin (3.5-5.0) g/dL Procalcitonin (0.02-0.09) ng/mL Assessment and Plan Plan: 1. Right lower lobe pneumonia with sepsis. continue with IVF normal saline 130 ml/ h, Rocephin 1 gr IVPB daily along with Zithromax 500 mg IVPB daily, sputum cultures and blood cultures, we will check COVID-19 as well, consult with appreciated, we will contiue with O2 support and Nebulized treatment Duoneb 3 ml QID. 2. severe hypovolemic hyponatremia. Continue with IVF with NS at 130 ml/h and we will continue to monitor labs very closely. 3. Leukocytosis due to pneumonia with sepsis. we will continue with IVF and IV antibiotics and repeat CBC in AM. 4. 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 we will check hepatitis panel and ferritin level, and Alpha Feto Protein, patient does not think he has issues with alcohol. 5. History of pancreatitis in the past. stable. Consult GI. 6. Hypertension and hypertensive cardiovascular disease. we will continue with Losartan 50 mg orally daily and Bisoprolol 10 mg orally daily no HCTZ. 7. Thrombocytopenia. likely related to lver cirrhosis. 8. DVT prophylaxis. we will start Heparin 5000 units SC q 12 hours. 9. GI prophylaxis. we will continue with protonix 40 mg orally daily. 10. Admit to inpatient estimated length of stay is 2 midnights. 11. Full code. Discharge plan: to be determined Impression and plan of care have been directed as dictated by the signing physician. Sherita Nicole nurse practitioner acting as scribe for signing physician.
--- NOTE | 2019-11-25 12:39 | P.PN ---
Subjective Progress Note Date: 11/25/19 This is a 59 year old male with a previous medical history significant for hypertension and hypertensive cardiovascular disease, hyperlipidemia, history of pancreatitis in the past along with prior history of sepsis due to cellulitis about 2 year ago, patient presented to the emergency department at [facility] after a week long of increased fatigue and generalized weakness associated with increased coughing with increased phlegm production, he has lost his appetite and has not been eating much, he denied any sick contact, he noticed that his urine is getting darker with nausea without any vomiting , and yesterday he had diarrhea and his son came and took him to the ER for evaluation, he had a CXR that showed right lower lobe pneumonia, and had leukocytosis with significant hyponatremia secondary to hypovolemia , his USof the abdomen suggesting of acute cholecystitis and gallstones , this was followed by CT chest/ Abdomen and pelvis that confirmed pneumonia and liver cirrhosis changes with splenomegaly, patient was admitted to the ICU and consultation for and Dr. Smith was obtained. 11/23: Patient has been transferred out of the intensive care unit and is seen t fermin on the [facility] floor. He has been afebrile since admission, blood pressure 139/75, pulse ox 94% on room air, heart rate 69. Repeat blood work reveals improving leukocytosis at 12.2, hemoglobin is 11.7, platelet count 76. Sodium improved to 127, potassium 3.4 and has been replaced, chloride 100, CO2 20, BUN 19 and creatinine 0.64. Blood sugars running between 101 and 117. Calcium 6.9. Patient states that he is feeling much better from yesterday. Patient complains of cough with sputum production. Patient has been seen by Dr. Kaye and legionella mycoplasma testing added. Coronavirus testing remains pending. Blood culture is status received. He is currently on antibiotics the form of azathioprine myosin and ceftriaxone. Sputum culture to be obtained. We have also added and alpha-fetoprotein tumor marker, ferritin level, viral hepatitis panel and consult with GI. Patient has been seen by Dr. Castaneda on previous admissions for acute pancreatitis. 11/24: Patient has been seen by Sera Smith with recommendations for chronic liver disease workup. Patient is seen and followed by pulmonary medicine. Patient has been afebrile, heart rate 68, blood pressure 133/79, pulse ox 94% on room air. Repeat blood work reveals Barbara BC 9.3, hemoglobin 12.9, platelet count 108. Sodium 130, potassium 3.9, chloride 99, CO2 25, BUN 13 and creatinine 0.57. Calcium 6.8, total bilirubin 3.9, AST 185, ALT 102. Ferritin level high at 469.6. Ammonia level 17. Alpha-fetoprotein tumor marker less than 2.5. Hepatitis panel negative. Coronavirus not detected. Urinalysis dark brown cloudy, blood large, bilirubin 1+, RBCs greater than 182, WBC 6, bacteria rare. Legionella, mycoplasma, alpha-1 antitrypsin, LINDSAY, ceruloplasmin, protein electrophoresis, iron profile, smooth muscle antibody pending. Patient is complaining of insomnia which has been a long-term problem for him. He has tried melatonin without improvement. Trazodone started. He continues to have cough. Objective - Vital Signs Vital signs: Vital Signs Temp 98.2 F 11/25/19 06:59 Pulse 68 11/25/19 06:59 Resp 18 11/25/19 06:59 BP 133/79 11/25/19 06:59 Pulse Ox 94 L 11/25/19 06:59 Intake & Output 11/24/19 11/25/19 11/25/19 18:59 06:59 18:59 Intake Total 260 1690 Balance 260 1690 Intake: IV 260 0.9 260 Intake, IV Titration 1450 Amount Sodium Chloride 0.9% 1, 1450 000 ml @ 130 mls/hr IV . Q7H42M [facility] Rx#:[id number] Oral 240 Other: Voiding Method Urinal Toilet Toilet Urinal Urinal # Voids 1 1 # Bowel Movements 1 - Exam Review of Systems Constitutional: Reports anorexia, Reports fatigue, Reports sweats, Reports weakness Eyes: denies blurred vision, denies bulging eye, denies decreased vision Ears, nose, mouth and throat: Denies dysphagia, Denies neck lump, Denies sore throat Cardiovascular: Reports decreased exercise tolerance, Reports dyspnea on exertion, Reports shortness of breath, Denies chest pain, Denies leg edema, Denies lightheadedness, Denies rapid heart beat, Denies syncope Respiratory: Reports congestion, Reports cough, Reports cough with sputum production, Reports respiratory infections, Reports sleep apnea, Denies hemoptysis, Denies home oxygen, Denies pain, Denies snoring, Denies wheezing Gastrointestinal: Reports bloating, Reports change in bowel habits, Reports dyspepsia, Reports early satiety, Reports indigestion, Reports jaundice, Reports loss of appetite, Reports nausea, Denies abdominal pain, Denies hematemesis, Denies hematochezia, Denies lactose intolerance, Denies melena, Denies vomiting Genitourinary: Reports nocturia, Denies dysuria Musculoskeletal: Denies myalgias Musculoskeletal: absent: ankle pain, ankle stiffness, ankle swelling, elbow pain, elbow stiffness, elbow swelling, foot pain, foot stiffness, foot swelling, hand pain, hand stiffness, hand swelling, hip pain, hip stiffness, hip swelling, knee pain, knee stiffness, knee swelling, shoulder pain, shoulder stiffness, shoulder swelling, wrist pain, wrist stiffness, wrist swelling Integumentary: Denies pruritus, Denies rash Neurological: Denies numbness, Denies weakness Psychiatric: Denies anxiety, Denies depression Endocrine: Denies fatigue, Denies weight change Physical Examination: GEN: This is a 59-year-old male patient resting in bed and appears to be comfortable and in no acute distress. HEENT: head is atraumatic normocephalic, pupils were equal round reactive to light and accommodations extra ocular muscle movements were intact, sclerae were deeply icteric, mucous membranes of the mouth are somewhat dry. Neck: supple no JVP or lymphadenopathy. Chest: decrease breath sounds at the bases with positive egophony to the right middle and right lower lobes, no chest wall tenderness or intercostal retractions. Heart: first heart sound is depressed, second heart sound is normal there is no gallop or murmur. Abdomen: soft distended positive for splenomegaly, positive for bowel sounds. Extremities: chronic skin changes due to prior stasis dermatitis and possible old cellulitis. Neurologic examination: patient is awake alert and oriented X3 CN II-XII are grossly intact , muscle power 5/5 in upper and lower extremities , deep tendon reflexes were normal. - Labs CBC & Chem 7: 11/25/19 06:41 11/25/19 06:41 Labs: Abnormal Lab Results - Last 24 Hours (Table) 11/23/19 11/24/19 11/24/19 Range/Units 15:14 13:00 13:17 RBC (4.30-5.90) m/uL Hgb (13.0-17.5) gm/dL MCV (80.0-100.0) fL Plt Count (150-450) k/uL Neutrophils # (1.3-7.7) k/uL Lymphocytes # (1.0-4.8) k/uL Sodium (137-145) mmol/L Creatinine (0.66-1.25) mg/dL POC Glucose (mg/dL) (75-99) mg/dL Calcium (8.4-10.2) mg/dL Ferritin 509.4 H 469.6 H (22.0-322.0) ng/mL Total Bilirubin (0.2-1.3) mg/dL AST (17-59) U/L ALT (4-49) U/L Albumin (3.5-5.0) g/dL Urine Protein Trace H (Negative) Urine Blood Large H (Negative) Urine Bilirubin 1+ H (Negative) Urine RBC >182 H (0-5) /hpf Urine WBC 6 H (0-5) /hpf Urine Bacteria Rare H (None) /hpf 11/24/19 11/24/19 11/25/19 Range/Units 16:35 20:41 06:41 RBC 3.73 L (4.30-5.90) m/uL Hgb 12.9 L (13.0-17.5) gm/dL MCV 106.6 H (80.0-100.0) fL Plt Count 108 L (150-450) k/uL Neutrophils # 7.8 H (1.3-7.7) k/uL Lymphocytes # 0.6 L (1.0-4.8) k/uL Sodium (137-145) mmol/L Creatinine (0.66-1.25) mg/dL POC Glucose (mg/dL) 108 H 121 H (75-99) mg/dL Calcium (8.4-10.2) mg/dL Ferritin (22.0-322.0) ng/mL Total Bilirubin (0.2-1.3) mg/dL AST (17-59) U/L ALT (4-49) U/L Albumin (3.5-5.0) g/dL Urine Protein (Negative) Urine Blood (Negative) Urine Bilirubin (Negative) Urine RBC (0-5) /hpf Urine WBC (0-5) /hpf Urine Bacteria (None) /hpf 11/25/19 11/25/19 Range/Units 06:41 06:57 RBC (4.30-5.90) m/uL Hgb (13.0-17.5) gm/dL MCV (80.0-100.0) fL Plt Count (150-450) k/uL Neutrophils # (1.3-7.7) k/uL Lymphocytes # (1.0-4.8) k/uL Sodium 130 L (137-145) mmol/L Creatinine 0.57 L (0.66-1.25) mg/dL POC Glucose (mg/dL) 108 H (75-99) mg/dL Calcium 6.8 L (8.4-10.2) mg/dL Ferritin (22.0-322.0) ng/mL Total Bilirubin 3.9 H (0.2-1.3) mg/dL AST 185 H (17-59) U/L ALT 102 H (4-49) U/L Albumin 2.7 L (3.5-5.0) g/dL Urine Protein (Negative) Urine Blood (Negative) Urine Bilirubin (Negative) Urine RBC (0-5) /hpf Urine WBC (0-5) /hpf Urine Bacteria (None) /hpf Microbiology - Last 24 Hours (Table) 11/23/19 15:14 Blood Culture - Preliminary Blood No Growth after 24 hours Assessment and Plan Plan: 1. Right lower lobe pneumonia with sepsis. continue with IVF normal saline 130 ml/ h, Rocephin 1 gr IVPB daily along with Zithromax 500 mg IVPB daily, sputum cultures and blood cultures, we will check COVID-19 as well, consult with appreciated, we will contiue with O2 support and Nebulized treatment Duoneb 3 ml QID. 2. severe hypovolemic hyponatremia. Continue with IVF with NS at 130 ml/h and we will continue to monitor labs very closely. 3. Leukocytosis due to pneumonia with sepsis. we will continue with IVF and IV antibiotics and repeat CBC in AM. 4. 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 we will check hepatitis panel and ferritin level, and Alpha Feto Protein, patient does not think he has issues with alcohol. 5. History of pancreatitis in the past. stable. Consult GI. 6. Hypertension and hypertensive cardiovascular disease. we will continue with Losartan 50 mg orally daily and Bisoprolol 10 mg orally daily no HCTZ. 7. Thrombocytopenia. likely related to lver cirrhosis. 8. DVT prophylaxis. we will start Heparin 5000 units SC q 12 hours. 9. GI prophylaxis. we will continue with protonix 40 mg orally daily. 10. Insomnia. Patient started on Trazodone. 11. Full code. Discharge plan: home Impression and plan of care have been directed as dictated by the signing physi cian. Sherita Nicole nurse practitioner acting as scribe for signing physician.
[2019-11-25 14:26] LABS: Ceruloplasmin 27.9 mg/dL (20.0-60.0)
[2019-11-25] MEDS: AZITHROMYCIN 500 MG TAB PO SCH (16:50)
[2019-11-25 16:55] LABS: % Iron Saturation 19.74 (15.00-50.00); Iron 46 ug/dL (65-175); Total Iron Binding Capacity 233 ug/dL (228-460)
--- NOTE | 2019-11-25 19:54 | PN ---
PROGRESS NOTE DATE OF SERVICE: 11/25/2019 HISTORY OF PRESENT ILLNESS: Patient is a 59-year-old pleasant white male admitted to the hospital with pneumonia and presently on broad-spectrum antibiotics. While in the hospital, he had a CT scan that showed cirrhosis of the liver with elevated LFTs and hence he was seen on consultation yesterday. Workup for chronic liver disease is in progress. The patient denies any symptoms other than fatigue and weakness. PHYSICAL EXAMINATION: VITAL SIGNS: Stable. Blood pressure is 112/58, pulse rate 65, temperature 98.2. HEENT: Examination unremarkable. Conjunctivae are pink. Sclerae anicteric. Oral cavity no lesions. NECK: No JVD or lymph node enlargement. CHEST: Clear auscultation. HEART: Regular rate and rhythm. ABDOMEN: Soft. Bowel sounds are positive. No organomegaly. EXTREMITIES: No pedal edema. NEUROLOGIC: Alert and oriented x3. No focal deficits. LABS: WBC 9.3, hemoglobin 12.9, MCV 106, platelets 108, T-bili down to 3.9. AST and ALT are 185 and 102 respectively. Alkaline phosphatase 126. Alpha fetoprotein less than 2.5. Alpha 1 antitrypsin normal. Ceruloplasmin is normal. Iron saturation 19%, ferritin 469. Hepatitis serologies for A, B and C negative. LINDSAY is negative. IMPRESSION: 1. Cirrhosis of the liver secondary to possible alcoholic liver disease. So far all the workup has been negative including hepatitis serologies for B and C, LINDSAY, autoimmune markers, as well as ferritin and iron saturation. Serum bilirubin has improved significantly. 2. Pneumonia, on broad-spectrum antibiotics. 3. Thrombocytopenia probably secondary to underlying chronic liver disease and cirrhosis of the liver. 4. Microcytic anemia, probably related to underlying liver cirrhosis. RECOMMENDATION: 1. Await the rest of the workup. 2. Continue antibiotics. 3. Repeat labs in the morning. 4. Abstinence from alcohol. We will follow with you closely. Thank you for this consultation. MMODL / IJN: [id number] /
[2019-11-25] MEDS: traZODone HCL 50 MG TAB PO SCH (20:54)
[2019-11-25] MEDS ORDERED: MELATONIN 5 MG TABLET PO SCH (21:00)
[2019-11-26] MEDS: ASPIRIN 81 MG PO SCH (08:46)
[2019-11-26] MEDS: LOSARTAN 50 MG TAB PO SCH (08:46)
[2019-11-26] MEDS: MULTIVITAMINS, THERA 1 EACH TAB PO SCH (08:46)
[2019-11-26] MEDS ORDERED: IBUPROFEN 600 MG TAB PO PRN (09:09)
[2019-11-26] MEDS: predniSONE 20 MG TAB PO SCH (09:57)
[2019-11-26] MEDS: BISOPROLOL-HCTZ 10-6.25 MG 1 EACH TAB PO SCH (09:57)
[2019-11-26] MEDS: guaiFENesin-Coden 100-10MG/5ML 10 ML CUP PO PRN ×3 (09:57→21:52)
[2019-11-26 10:19] LABS: Basophils % (A) 1 %; Eosinophils # (A) 0.1 k/uL (0-0.7); Eosinophils % (A) 2 %; HCT 36.5 % (39.0-53.0); HGB 12.1 gm/dL (13.0-17.5); Lymphocytes # (A) 0.6 k/uL (1.0-4.8); Lymphocytes % (A) 12 %; MCH 35.5 pg (25.0-35.0); MCHC 33.2 g/dL (31.0-37.0); MCV 106.9 fL (80.0-100.0); Macrocytosis Moderate; Mean Platelet Volume 7.6; Monocytes # (A) 0.4 k/uL (0-1.0); Monocytes % (A) 7 %; Neutrophils % (A) 74 %; RBC 3.42 m/uL (4.30-5.90); RDW 13.8 % (11.5-15.5); WBC 5.3 k/uL (3.8-10.6)
[2019-11-26 10:20] LABS: ALT 107 U/L (4-49); AST 141 U/L (17-59); African American GFR (CKD) >90 (>60 ml/min/1.73 sqM); Albumin 2.7 g/dL (3.5-5.0); Alkaline Phosphatase 121 U/L (38-126); Anion Gap 6 mmol/L; Blood Urea Nitrogen 10 mg/dL (9-20); Calcium 7.4 mg/dL (8.4-10.2); Carbon Dioxide 26 mmol/L (22-30); Chloride 98 mmol/L (98-107); Glucose 118 mg/dL (74-99); Non-African American GFR(CKD) >90 (>60 ml/min/1.73 sqM); Potassium 3.8 mmol/L (3.5-5.1); Sodium 130 mmol/L (137-145); Total Bilirubin 3.3 mg/dL (0.2-1.3); Total Protein 6.3 g/dL (6.3-8.2)
--- NOTE | 2019-11-26 10:31 | P.PN ---
Subjective Progress Note Date: 11/26/19 Principal diagnosis: Right lung bronchopneumonia The patient is seen today 11/25/2019 in follow-up on the regular medical floor. He is currently sitting up in bed. Awake and alert in no acute distress. Feeling about the same as compared to yesterday. No real improvement. He is maintaining O2 saturations in the 90s on 2 L/m per nasal cannula. He's been afebrile. Hemodynamically stable. Blood culture reveals no growth to date. White count 9.3. Hemoglobin 12.9. Sodium 1:30. Potassium 3.9. Creatinine 0.57. AST 185. ALT 102. Hepatitis screen negative. He remains on ceftriaxone and azithromycin. Bronchodilators as needed. The patient is seen today 11/26/2019 in follow-up on the regular medical floor. He is awake and alert in no acute distress. He is a bit more short of breath. Some what bronchospastic and wheezy today. Still with cough and congestion. He is maintaining O2 saturations in the mid 90s on 2 L/m per nasal cannula. He's been afebrile. Hemodynamically stable. Blood culture reveals no growth. Sodium 1:30. Potassium 3.8. Creatinine 0.60. AST 141. ALT 107. He remains on ceftriaxone and azithromycin. Objective - Vital Signs Vital signs: Vital Signs Temp 98.1 F 11/26/19 07:00 Pulse 66 11/26/19 07:00 Resp 18 11/26/19 07:00 BP 120/54 11/26/19 07:00 Pulse Ox 96 11/26/19 07:00 Intake & Output 11/25/19 11/26/19 11/26/19 18:59 06:59 18:59 Intake Total 1390 Balance 1390 Intake: Intake, IV Titration 1090 Amount Sodium Chloride 0.9% 1, 1040 000 ml @ 130 mls/hr IV . Q7H42M [facility] Rx#:[id number] cefTRIAXone 2 gm In 50 Sodium Chloride 0.9% 50 ml @ 100 mls/hr IVPB Q24H [facility] Rx#:[id number] Oral 300 Other: Voiding Method Toilet Toilet Toilet Urinal Urinal Urinal # Voids 3 1 - Exam GENERAL EXAM: Alert, pleasant 59-year-old gentleman, on 2 L nasal cannula, comfortable in no apparent distress. HEAD: Normocephalic. EYES: Normal reaction of pupils, equal size. NOSE: Clear with pink turbinates. THROAT: No erythema or exudates. NECK: No masses, no JVD. CHEST: No chest wall deformity. LUNGS: Equal air entry with end expiratory wheeze, scattered rhonchi more so on the right lung CVS: S1 and S2 normal with no audible murmur, regular rhythm. ABDOMEN: No hepatosplenomegaly, normal bowel sounds, no guarding or rigidity. SPINE: No scoliosis or deformity SKIN: No rashes CENTRAL NERVOUS SYSTEM: No focal deficits, tone is normal in all 4 extremities. EXTREMITIES: There is no peripheral edema. No clubbing, no cyanosis. Peripheral pulses are intact. - Labs CBC & Chem 7: 11/25/19 06:41 11/26/19 09:36 Labs: Abnormal Lab Results - Last 24 Hours (Table) 11/24/19 11/25/19 11/25/19 Range/Units 08:34 06:41 06:41 Sodium (137-145) mmol/L Creatinine (0.66-1.25) mg/dL Glucose (74-99) mg/dL Calcium (8.4-10.2) mg/dL Iron 46 L (65-175) ug/dL Total Bilirubin (0.2-1.3) mg/dL AST (17-59) U/L ALT (4-49) U/L Total Protein (PEP) 6.0 L (6.2-8.2) g/dL Albumin (3.5-5.0) g/dL Mycoplasma pneumon IgG 2.35 H (<=0.90) INDEX 11/26/19 Range/Units 09:36 Sodium 130 L (137-145) mmol/L Creatinine 0.60 L (0.66-1.25) mg/dL Glucose 118 H (74-99) mg/dL Calcium 7.4 L (8.4-10.2) mg/dL Iron (65-175) ug/dL Total Bilirubin 3.3 H (0.2-1.3) mg/dL AST 141 H (17-59) U/L ALT 107 H (4-49) U/L Total Protein (PEP) (6.2-8.2) g/dL Albumin 2.7 L (3.5-5.0) g/dL Mycoplasma pneumon IgG (<=0.90) INDEX Microbiology - Last 24 Hours (Table) 11/23/19 15:14 Blood Culture - Preliminary Blood No Growth after 48 hours Assessment and Plan Assessment: Acute community-acquired right lung pneumonia Acute hypoxemic respiratory failure secondary to above Gallstone pancreatitis Sepsis secondary to above Liver cirrhosis Previous history of pancreatitis Alcohol use Hypertension Plan: The patient was seen and evaluated by Kailey Leonard scheduled, [facility] Repeat chest x-ray in a.m. We'll continue to follow I, the cosigning physician, performed a history & physical examination of the patient. Lungs sounds with end expiratory wheeze, scattered rhonchi more so on the right. Maintaining good O2 saturations in the 90s on 2 L/m per nasal cannula. I discussed the assessment and plan of care with my nurse practitioner, Zaida Moon. I attest to the above note as dictated by her.
[2019-11-26] MEDS: IPRATROPIUM-ALBUTEROL 3 ML NEB INHALATION SCH ×3 (11:30→19:48)
[2019-11-26 11:45] LABS: Anisocytosis (M) Present; Platelet Count 92 k/uL (150-450)
[2019-11-26 15:23] LABS: Albumin 2.59 g/dL (3.80-4.90); Gamma Globulin 1.53 g/dL (0.70-1.50)
--- NOTE | 2019-11-26 16:14 | P.PN ---
Subjective Progress Note Date: 11/26/19 This is a 59 year old male with a previous medical history significant for hypertension and hypertensive cardiovascular disease, hyperlipidemia, history of pancreatitis in the past along with prior history of sepsis due to cellulitis about 2 year ago, patient presented to the emergency department at [facility] after a week long of increased fatigue and generalized weakness associated with increased coughing with increased phlegm production, he has lost his appetite and has not been eating much, he denied any sick contact, he noticed that his urine is getting darker with nausea without any vomiting , and yesterday he had diarrhea and his son came and took him to the ER for evaluation, he had a CXR that showed right lower lobe pneumonia, and had leukocytosis with significant hyponatremia secondary to hypovolemia , his USof the abdomen suggesting of acute cholecystitis and gallstones , this was followed by CT chest/ Abdomen and pelvis that confirmed pneumonia and liver cirrhosis changes with splenomegaly, patient was admitted to the ICU and consultation for and Dr. Smith was obtained. 11/23: Patient has been transferred out of the intensive care unit and is seen t fermin on the [facility] floor. He has been afebrile since admission, blood pressure 139/75, pulse ox 94% on room air, heart rate 69. Repeat blood work reveals improving leukocytosis at 12.2, hemoglobin is 11.7, platelet count 76. Sodium improved to 127, potassium 3.4 and has been replaced, chloride 100, CO2 20, BUN 19 and creatinine 0.64. Blood sugars running between 101 and 117. Calcium 6.9. Patient states that he is feeling much better from yesterday. Patient complains of cough with sputum production. Patient has been seen by Dr. Kaye and legionella mycoplasma testing added. Coronavirus testing remains pending. Blood culture is status received. He is currently on antibiotics the form of azathioprine myosin and ceftriaxone. Sputum culture to be obtained. We have also added and alpha-fetoprotein tumor marker, ferritin level, viral hepatitis panel and consult with GI. Patient has been seen by Dr. Castaneda on previous admissions for acute pancreatitis. 11/24: Patient has been seen by Sera Smith with recommendations for chronic liver disease workup. Patient is seen and followed by pulmonary medicine. Patient has been afebrile, heart rate 68, blood pressure 133/79, pulse ox 94% on room air. Repeat blood work reveals Barbara BC 9.3, hemoglobin 12.9, platelet count 108. Sodium 130, potassium 3.9, chloride 99, CO2 25, BUN 13 and creatinine 0.57. Calcium 6.8, total bilirubin 3.9, AST 185, ALT 102. Ferritin level high at 469.6. Ammonia level 17. Alpha-fetoprotein tumor marker less than 2.5. Hepatitis panel negative. Coronavirus not detected. Urinalysis dark brown cloudy, blood large, bilirubin 1+, RBCs greater than 182, WBC 6, bacteria rare. Legionella, mycoplasma, alpha-1 antitrypsin, LINDSAY, ceruloplasmin, protein electrophoresis, iron profile, smooth muscle antibody pending. Patient is complaining of insomnia which has been a long-term problem for him. He has tried melatonin without improvement. Trazodone started. He continues to have cough. 11/25: Patient had a rough night with coughing and shortness of breath. He is improved at the time of evaluation. He continues to have cough with sputum production. He has been afebrile, heart rate 66, blood pressure 141/78, pulse ox 92% on room air. Sodium 130, Potassium 3.8. Creatinine 0.60. AST 141. ALT 107. He remains on ceftriaxone and azithromycin. Repeat chest x-ray has been ordered for tomorrow. We will add in Lasix, Aldactone and discontinue hydrochlorothiazide. Anticipate possible discharge over the weekend. Blood culture showing no growth at 48 hours. Objective - Vital Signs Vital signs: Vital Signs Temp 98.1 F 11/26/19 07:00 Pulse 72 11/26/19 11:43 Resp 18 11/26/19 07:00 BP 120/54 11/26/19 07:00 Pulse Ox 96 11/26/19 07:00 Intake & Output 11/25/19 11/26/19 11/26/19 18:59 06:59 18:59 Intake Total 1390 Balance 1390 Intake: Intake, IV Titration 1090 Amount Sodium Chloride 0.9% 1, 1040 000 ml @ 130 mls/hr IV . [id number] [facility] Rx#:[id number] cefTRIAXone 2 gm In 50 Sodium Chloride 0.9% 50 ml @ 100 mls/hr IVPB Q24H [facility] Rx#:[id number] Oral 300 Other: Voiding Method Toilet Toilet Toilet Urinal Urinal Urinal # Voids 3 1 - Exam Review of Systems Constitutional: Reports anorexia, Reports fatigue, Reports sweats, Reports weakness Eyes: denies blurred vision, denies bulging eye, denies decreased vision Ears, nose, mouth and throat: Denies dysphagia, Denies neck lump, Denies sore throat Cardiovascular: Reports decreased exercise tolerance, Reports dyspnea on exertion, Reports shortness of breath, Denies chest pain, Denies leg edema, Denies lightheadedness, Denies rapid heart beat, Denies syncope Respiratory: Reports congestion, Reports cough, Reports cough with sputum production, Reports respiratory infections, Reports sleep apnea, Denies hemoptysis, Denies home oxygen, Denies pain, Denies snoring, Denies wheezing Gastrointestinal: Reports bloating, Reports change in bowel habits, Reports dyspepsia, Reports early satiety, Reports indigestion, Reports jaundice, Reports loss of appetite, Reports nausea, Denies abdominal pain, Denies hematemesis, Denies hematochezia, Denies lactose intolerance, Denies melena, Denies vomiting Genitourinary: Reports nocturia, Denies dysuria Musculoskeletal: absent: ankle pain, ankle stiffness, ankle swelling, elbow pain, elbow stiffness, elbow swelling, foot pain, foot stiffness, foot swelling, hand pain, hand stiffness, hand swelling, hip pain, hip stiffness, hip swelling, knee pain, knee stiffness, knee swelling, shoulder pain, shoulder stiffness, shoulder swelling, wrist pain, wrist stiffness, wrist swelling Integumentary: Denies pruritus, Denies rash Neurological: Denies numbness, Denies weakness Psychiatric: Denies anxiety, Denies depression Endocrine: Denies fatigue, Denies weight change Physical Examination: GEN: This is a 59-year-old male patient resting in bed and appears to be comfortable and in no acute distress. HEENT: head is atraumatic normocephalic, pupils were equal round reactive to light and accommodations extra ocular muscle movements were intact, sclerae were deeply icteric, mucous membranes of the mouth are somewhat dry. Neck: supple no JVP or lymphadenopathy. Chest: decrease breath sounds at the bases with mild positive egophony to the right middle and right lower lobes, few scattered rhonchi, no chest wall tendern ess or intercostal retractions. Heart: first heart sound is depressed, second heart sound is normal there is no gallop or murmur. Abdomen: soft distended positive for splenomegaly, positive for bowel sounds. Extremities: chronic skin changes due to prior stasis dermatitis and possible old cellulitis. Neurologic examination: patient is awake alert and oriented X3 CN II-XII are grossly intact , muscle power 5/5 in upper and lower extremities , deep tendon reflexes were normal. - Labs CBC & Chem 7: 11/26/19 09:36 11/26/19 09:36 Labs: Abnormal Lab Results - Last 24 Hours (Table) 11/24/19 11/25/19 11/26/19 Range/Units 08:34 06:41 09:36 RBC 3.42 L (4.30-5.90) m/uL Hgb 12.1 L (13.0-17.5) gm/dL Hct 36.5 L (39.0-53.0) % MCV 106.9 H (80.0-100.0) fL MCH 35.5 H (25.0-35.0) pg Plt Count 92 L (150-450) k/uL Lymphocytes # 0.6 L (1.0-4.8) k/uL Sodium (137-145) mmol/L Creatinine (0.66-1.25) mg/dL Glucose (74-99) mg/dL Calcium (8.4-10.2) mg/dL Iron 46 L (65-175) ug/dL Total Bilirubin (0.2-1.3) mg/dL AST (17-59) U/L ALT (4-49) U/L Albumin (3.5-5.0) g/dL Mycoplasma pneumon IgG 2.35 H (<=0.90) INDEX 11/26/19 Range/Units 09:36 RBC (4.30-5.90) m/uL Hgb (13.0-17.5) gm/dL Hct (39.0-53.0) % MCV (80.0-100.0) fL MCH (25.0-35.0) pg Plt Count (150-450) k/uL Lymphocytes # (1.0-4.8) k/uL Sodium 130 L (137-145) mmol/L Creatinine 0.60 L (0.66-1.25) mg/dL Glucose 118 H (74-99) mg/dL Calcium 7.4 L (8.4-10.2) mg/dL Iron (65-175) ug/dL Total Bilirubin 3.3 H (0.2-1.3) mg/dL AST 141 H (17-59) U/L ALT 107 H (4-49) U/L Albumin 2.7 L (3.5-5.0) g/dL Mycoplasma pneumon IgG (<=0.90) INDEX Microbiology - Last 24 Hours (Table) 11/23/19 15:14 Blood Culture - Preliminary Blood No Growth after 48 hours Assessment and Plan Plan: 1. Right lower lobe pneumonia with sepsis. Continue Rocephin 1 gr IVPB daily along with Zithromax 500 mg oral daily, sputum cultures and blood cultures, consult with appreciated, we will contiue with O2 support and Nebulized treatment Duoneb 3 ml QID. 2. severe hypovolemic hyponatremia. Patient is off IV fluids.. 3. Leukocytosis due to pneumonia with sepsis. we will continue antibiotics. 4. Liver cirrhosis with splenomegaly and umbilical varices most likely secondary to alcohol abuse. Lasix 20 mg daily, Aldactone 25 mg daily added. Discontinue hydrochlorothiazide. Continue beta nicki. 5. History of pancreatitis in the past. stable. Consult GI. 6. Hypertension and hypertensive cardiovascular disease. we will continue with Losartan 50 mg orally daily and Bisoprolol 10 mg orally daily no HCTZ. 7. Thrombocytopenia. likely related to lver cirrhosis. 8. DVT prophylaxis. we will start Heparin 5000 units SC q 12 hours. 9. GI prophylaxis. we will continue with protonix 40 mg orally daily. 10. Insomnia. Patient started on Trazodone. 11. Full code. Discharge plan: home Impression and plan of care have been directed as dictated by the signing physician. Sherita Nicole nurse practitioner acting as scribe for signing physician.
[2019-11-26] MEDS: SPIRONOLACTONE 25 MG TAB PO SCH (16:27)
[2019-11-26] MEDS: FUROSEMIDE 20 MG TAB PO SCH (16:27)
[2019-11-26] MEDS: AZITHROMYCIN 500 MG TAB PO SCH (16:27)
--- NOTE | 2019-11-26 18:52 | PN ---
PROGRESS NOTE DATE OF DICTATION: 11/26/2019 This patient is a 59-year-old white male admitted to the hospital with pneumonia. While in the hospital he was noted to have cirrhosis of the liver with elevated LFTs and jaundice on a CT scan of the abdomen. He had hepatitis serologies for A, B and C which were negative. Workup is negative. Iron studies normal. Ferritin elevated at 400. LINDSAY negative alpha 1 antitrysin normal. Ceruloplasmin normal PHYSICAL EXAMINATION: He appears comfortable. No apparent distress. VITAL SIGNS: Stable. Blood pressure is 112/85, pulse rate 92 per minute and afebrile. HEENT examination unremarkable. Conjunctivae pink. Sclerae slightly icteric. Oral cavity no lesions. NECK: No JVD or lymph node enlargement. CHEST: Clear to auscultation. HEART: Regular rate and rhythm. ABDOMEN: Soft. Bowel sounds are positive. No organomegaly. EXTREMITIES: No pedal edema. SKIN: No rashes. NEUROLOGIC: Alert and oriented x3. No focal deficits. LABS: Labs done from today show WBC 5.3, hemoglobin 12.7, platelets 92,000. Bilirubin is 3.3, AST 107, ALT 121, alkaline phosphatase normal. IMPRESSION: 1. Cirrhosis of the liver, possibly related to alcohol history. All workup for chronic liver disease has been negative. Patient has well-compensated liver disease. 2. Pneumonia, on broad-spectrum antibiotics. RECOMMENDATIONS: Monitor LFTs closely. Discussed with the patient regarding all the workup. Recommended abstinence from alcohol. Patient was advised to follow up in the office 2 weeks following discharge from the hospital to monitor LFTs closely. Thank you for this consultation. MMODL / IJN: [id number] / ARRON
[2019-11-26] MEDS: traZODone HCL 50 MG TAB PO SCH (21:52)
[2019-11-27] MEDS: guaiFENesin-Coden 100-10MG/5ML 10 ML CUP PO PRN ×3 (04:53→21:24)
--- NOTE | 2019-11-27 07:31 | XR ---
EXAMINATION TYPE: XR chest 1V DATE OF EXAM: 11/27/2019 HISTORY: Shortness of breath. COMPARISON: 11/24/2019 TECHNIQUE: Single view of the chest is submitted. FINDINGS: Demonstrated are scattered senescent parenchymal change. Right lower lobe infiltrate is noted. Orally for pneumonia and progress studies are advised. The heart is stable. Hilar and mediastinal structures are within normal limits. Degenerative changes are seen of the dorsal spine. IMPRESSION: 1. Right lower lobe infiltrate is noted. Orally for pneumonia and progress studies are advised.
[2019-11-27 07:41] LABS: HCT 37.1 % (39.0-53.0); Hypochromasia Slight; MCH 34.6 pg (25.0-35.0); MCHC 32.5 g/dL (31.0-37.0); MCV 106.5 fL (80.0-100.0); Macrocytosis Moderate; Mean Platelet Volume 7.4; RBC 3.48 m/uL (4.30-5.90); RDW 13.9 % (11.5-15.5)
[2019-11-27 07:49] LABS: Platelet Count 97 k/uL (150-450)
[2019-11-27 07:55] LABS: ALT 90 U/L (4-49); AST 96 U/L (17-59); African American GFR (CKD) >90 (>60 ml/min/1.73 sqM); Albumin 2.8 g/dL (3.5-5.0); Alkaline Phosphatase 127 U/L (38-126); Anion Gap 6 mmol/L; Blood Urea Nitrogen 12 mg/dL (9-20); Carbon Dioxide 23 mmol/L (22-30); Chloride 102 mmol/L (98-107); Glucose 110 mg/dL (74-99); Non-African American GFR(CKD) >90 (>60 ml/min/1.73 sqM); Potassium 3.9 mmol/L (3.5-5.1); Sodium 131 mmol/L (137-145); Total Bilirubin 2.6 mg/dL (0.2-1.3); Total Protein 6.5 g/dL (6.3-8.2)
[2019-11-27] MEDS: BISOPROLOL 5 MG TAB PO SCH (08:32)
[2019-11-27] MEDS: MULTIVITAMINS, THERA 1 EACH TAB PO SCH (08:33)
[2019-11-27] MEDS: predniSONE 20 MG TAB PO SCH (08:33)
[2019-11-27] MEDS: LOSARTAN 50 MG TAB PO SCH (08:33)
[2019-11-27] MEDS: SPIRONOLACTONE 25 MG TAB PO SCH (08:33)
[2019-11-27] MEDS: FUROSEMIDE 20 MG TAB PO SCH (08:33)
[2019-11-27] MEDS: ASPIRIN 81 MG PO SCH (08:33)
[2019-11-27] MEDS: IPRATROPIUM-ALBUTEROL 3 ML NEB INHALATION SCH ×4 (09:30→20:45)
--- NOTE | 2019-11-27 11:38 | P.PN ---
Subjective Progress Note Date: 11/27/19 This is a 59 year old male with a previous medical history significant for hypertension and hypertensive cardiovascular disease, hyperlipidemia, history of pancreatitis in the past along with prior history of sepsis due to cellulitis about 2 year ago, patient presented to the emergency department at [facility] after a week long of increased fatigue and generalized weakness associated with increased coughing with increased phlegm production, he has lost his appetite and has not been eating much, he denied any sick contact, he noticed that his urine is getting darker with nausea without any vomiting , and yesterday he had diarrhea and his son came and took him to the ER for evaluation, he had a CXR that showed right lower lobe pneumonia, and had leukocytosis with significant hyponatremia secondary to hypovolemia , his USof the abdomen suggesting of acute cholecystitis and gallstones , this was followed by CT chest/ Abdomen and pelvis that confirmed pneumonia and liver cirrhosis changes with splenomegaly, patient was admitted to the ICU and consultation for and Dr. Smith was obtained. 11/23: Patient has been transferred out of the intensive care unit and is seen t fermin on the [facility] floor. He has been afebrile since admission, blood pressure 139/75, pulse ox 94% on room air, heart rate 69. Repeat blood work reveals improving leukocytosis at 12.2, hemoglobin is 11.7, platelet count 76. Sodium improved to 127, potassium 3.4 and has been replaced, chloride 100, CO2 20, BUN 19 and creatinine 0.64. Blood sugars running between 101 and 117. Calcium 6.9. Patient states that he is feeling much better from yesterday. Patient complains of cough with sputum production. Patient has been seen by Dr. Kaye and legionella mycoplasma testing added. Coronavirus testing remains pending. Blood culture is status received. He is currently on antibiotics the form of azathioprine myosin and ceftriaxone. Sputum culture to be obtained. We have also added and alpha-fetoprotein tumor marker, ferritin level, viral hepatitis panel and consult with GI. Patient has been seen by Dr. Castaneda on previous admissions for acute pancreatitis. 11/24: Patient has been seen by Sera Smith with recommendations for chronic liver disease workup. Patient is seen and followed by pulmonary medicine. Patient has been afebrile, heart rate 68, blood pressure 133/79, pulse ox 94% on room air. Repeat blood work reveals Barbara BC 9.3, hemoglobin 12.9, platelet count 108. Sodium 130, potassium 3.9, chloride 99, CO2 25, BUN 13 and creatinine 0.57. Calcium 6.8, total bilirubin 3.9, AST 185, ALT 102. Ferritin level high at 469.6. Ammonia level 17. Alpha-fetoprotein tumor marker less than 2.5. Hepatitis panel negative. Coronavirus not detected. Urinalysis dark brown cloudy, blood large, bilirubin 1+, RBCs greater than 182, WBC 6, bacteria rare. Legionella, mycoplasma, alpha-1 antitrypsin, LINDSAY, ceruloplasmin, protein electrophoresis, iron profile, smooth muscle antibody pending. Patient is complaining of insomnia which has been a long-term problem for him. He has tried melatonin without improvement. Trazodone started. He continues to have cough. 11/25: Patient had a rough night with coughing and shortness of breath. He is improved at the time of evaluation. He continues to have cough with sputum production. He has been afebrile, heart rate 66, blood pressure 141/78, pulse ox 92% on room air. Sodium 130, Potassium 3.8. Creatinine 0.60. AST 141. ALT 107. He remains on ceftriaxone and azithromycin. Repeat chest x-ray has been ordered for tomorrow. We will add in Lasix, Aldactone and discontinue hydrochlorothiazide. Anticipate possible discharge over the weekend. Blood culture showing no growth at 48 hours. 11/26: Patient sitting up in no apparent distress he continues to be a bit short of breath. He denies any coughing or any phlegm production, he has no abdominal pain, nausea or vomiting he had urinated very well over the last 24 hours, he is not using his oxygen, he is ventilating very well, he is tolerating his diet very well, most likely would be staying in the hospital for another 24 hours and hopefully home on Friday. Objective - Vital Signs Vital signs: Vital Signs Temp 97.7 F 11/27/19 06:56 Pulse 70 11/27/19 09:40 Resp 18 11/27/19 06:56 BP 157/73 11/27/19 06:56 Pulse Ox 93 L 11/27/19 06:56 Intake & Output 11/26/19 11/27/19 11/27/19 18:59 06:59 18:59 Intake Total 300 Balance 300 Intake: Oral 300 Other: Voiding Method Toilet Toilet Toilet Urinal Urinal Urinal # Voids 1 1 - Exam - Exam Review of Systems Constitutional: Reports anorexia, Reports fatigue, Reports sweats, Reports weakness Eyes: denies blurred vision, denies bulging eye, denies decreased vision Ears, nose, mouth and throat: Denies dysphagia, Denies neck lump, Denies sore t hroat Cardiovascular: Reports decreased exercise tolerance, Reports dyspnea on exertion, Reports shortness of breath, Denies chest pain, Denies leg edema, Denies lightheadedness, Denies rapid heart beat, Denies syncope Respiratory: Reports congestion, Reports cough, Reports cough with sputum production, Reports respiratory infections, Reports sleep apnea, Denies hemoptysis, Denies home oxygen, Denies pain, Denies snoring, Denies wheezing Gastrointestinal: Reports bloating, Reports change in bowel habits, Reports dyspepsia, Reports early satiety, Reports indigestion, Reports jaundice, Reports loss of appetite, Reports nausea, Denies abdominal pain, Denies hematemesis, Denies hematochezia, Denies lactose intolerance, Denies melena, Denies vomiting Genitourinary: Reports nocturia, Denies dysuria Musculoskeletal: absent: ankle pain, ankle stiffness, ankle swelling, elbow pain, elbow stiffness, elbow swelling, foot pain, foot stiffness, foot swelling, hand pain, hand stiffness, hand swelling, hip pain, hip stiffness, hip swelling, knee pain, knee stiffness, knee swelling, shoulder pain, shoulder stiffness, shoulder swelling, wrist pain, wrist stiffness, wrist swelling Integumentary: Denies pruritus, Denies rash Neurological: Denies numbness, Denies weakness Psychiatric: Denies anxiety, Denies depression Endocrine: Denies fatigue, Denies weight change Physical Examination: GEN: This is a 59-year-old male patient resting in bed and appears to be comfortable and in no acute distress. HEENT: head is atraumatic normocephalic, pupils were equal round reactive to light and accommodations extra ocular muscle movements were intact, sclerae were deeply icteric, mucous membranes of the mouth are somewhat dry. Neck: supple no JVP or lymphadenopathy. Chest: decrease breath sounds at the bases with mild positive egophony to the right middle and right lower lobes, few scattered rhonchi, no chest wall tenderness or intercostal retractions. Heart: first heart sound is depressed, second heart sound is normal there is no gallop or murmur. Abdomen: soft distended positive for splenomegaly, positive for bowel sounds. Extremities: chronic skin changes due to prior stasis dermatitis and possible old cellulitis. Neurologic examination: patient is awake alert and oriented X3 CN II-XII are grossly intact , muscle power 5/5 in upper and lower extremities , deep tendon reflexes were normal. - Labs CBC & Chem 7: 11/27/19 07:15 11/27/19 07:15 Labs: Abnormal Lab Results - Last 24 Hours (Table) 11/25/19 11/25/19 11/26/19 Range/Units 06:41 06:41 09:36 RBC 3.42 L (4.30-5.90) m/uL Hgb 12.1 L (13.0-17.5) gm/dL Hct 36.5 L (39.0-53.0) % MCV 106.9 H (80.0-100.0) fL MCH 35.5 H (25.0-35.0) pg Plt Count 92 L (150-450) k/uL Lymphocytes # 0.6 L (1.0-4.8) k/uL Sodium (137-145) mmol/L Creatinine (0.66-1.25) mg/dL Glucose (74-99) mg/dL Calcium (8.4-10.2) mg/dL Total Bilirubin (0.2-1.3) mg/dL AST (17-59) U/L ALT (4-49) U/L Alkaline Phosphatase (38-126) U/L Albumin (3.5-5.0) g/dL Albumin (PEP) 2.59 L (3.80-4.90) g/dL Gamma Globulins 1.53 H (0.70-1.50) g/dL Anti-Smooth Muscle Ab 43 H (<20) UNITS 11/27/19 11/27/19 Range/Units 07:15 07:15 RBC 3.48 L (4.30-5.90) m/uL Hgb 12.0 L (13.0-17.5) gm/dL Hct 37.1 L (39.0-53.0) % MCV 106.5 H (80.0-100.0) fL MCH (25.0-35.0) pg Plt Count 97 L (150-450) k/uL Lymphocytes # (1.0-4.8) k/uL Sodium 131 L (137-145) mmol/L Creatinine 0.55 L (0.66-1.25) mg/dL Glucose 110 H (74-99) mg/dL Calcium 8.0 L (8.4-10.2) mg/dL Total Bilirubin 2.6 H (0.2-1.3) mg/dL AST 96 H (17-59) U/L ALT 90 H (4-49) U/L Alkaline Phosphatase 127 H (38-126) U/L Albumin 2.8 L (3.5-5.0) g/dL Albumin (PEP) (3.80-4.90) g/dL Gamma Globulins (0.70-1.50) g/dL Anti-Smooth Muscle Ab (<20) UNITS Microbiology - Last 24 Hours (Table) 11/26/19 00:01 Gram Stain - Preliminary Sputum Sputum Culture - Preliminary 11/23/19 15:14 Blood Culture - Preliminary Blood No Growth after 72 hours Assessment and Plan Assessment: Assessment and Plan Plan: 1. Right lower lobe pneumonia with sepsis. Continue Rocephin 1 gr IVPB daily along with Zithromax 500 mg oral daily, sputum cultures and blood cultures, patient Mycoplasma antibody were positive for IgG and IgM was negative, he is mentating and Zithromax 500 mg orally once every day, as well as Rocephin, we'll continue with incentive spirometer will continue with DuoNeb treatment nebulization 4 times every day continue with oxygen to keep his saturation greater than 93% at all the time. 2. severe hypovolemic hyponatremia. His sodium is back to normal. 3. Leukocytosis due to pneumonia with sepsis. Resolved. 4. 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 Continue patient on Lasix 20 mg orally once every day spironolactone 25 mg orally once every day, continue bisoprolol 10 mg orally once every day was taken off hydrochlorothiazide due to hypovolemic hyponatremia. 5. History of pancreatitis in the past. stable. Appears stable 6. Hypertension and hypertensive cardiovascular disease. we will continue with Losartan 50 mg orally daily and Bisoprolol 10 mg orally daily. 7. Thrombocytopenia. likely related to lver cirrhosis. 8. DVT prophylaxis. we will start Heparin 5000 units SC q 12 hours. 9. GI prophylaxis. we will continue with protonix 40 mg orally daily. 10. Insomnia. We'll continue with trazodone. 11. Increase activity. 12. Likely home on Friday.
--- NOTE | 2019-11-27 12:54 | PN ---
PROGRESS NOTE DATE OF SERVICE: 11/27/2019 INTERVAL HISTORY: The patient is a 59-year-old pleasant white male admitted to the hospital with pneumonia on antibiotics, was diagnosed with cirrhosis on imaging studies during this hospitalization. Workup for chronic liver disease is all negative. Anti smooth muscle antibody was slightly positive. However, antinuclear antibody was negative. LABS: From today show bilirubin is 2.6, AST and ALT are 96 and 90 respectively, alkaline phosphatase is 127. BUN and creatinine are within normal limits. WBC 7, hemoglobin 12, platelets 97,000. PHYSICAL EXAMINATION: He appears comfortable. VITAL SIGNS: Stable. Blood pressure 157/73, pulse 67, temperature 97.7. HEENT: Examination unremarkable. Conjunctivae are pink. Sclerae anicteric. Oral cavity no lesions. NECK: No JVD or lymph node enlargement. CHEST: Clear to auscultation. HEART: Regular rate and rhythm. ABDOMEN: Obese. Bowel sounds are positive. No organomegaly. EXTREMITIES: No edema. NEURO: He is alert and oriented x3. No focal deficits. IMPRESSION: 1. Cirrhosis of the liver, most likely alcohol related. All workup for chronic liver disease is negative. The anti smooth muscle antibody was slightly positive, but in the setting of negative antinuclear antibody and the pattern of LFTs, it is very unlikely we are dealing with autoimmune hepatitis. Often patients with alcoholic fatty liver disease do have a false-positive anti smooth muscle antibody. 2. Pneumonia, on broad-spectrum antibiotics. 3. Anemia and thrombocytopenia. Macrocytic anemia and thrombocytopenia may be related to portal hypertension and hypersplenism. RECOMMENDATIONS: 1. Discussed with the patient all the workup of chronic liver disease. 2. Abstinence from alcohol. 3. He was advised to follow up in the office in 2-3 weeks following discharge from the hospital. Thank you for this consultation. MMODL / IJN: [id number] /
--- NOTE | 2019-11-27 13:02 | P.PN ---
Subjective Progress Note Date: 11/27/19 Principal diagnosis: Right lung bronchopneumonia The patient is seen today 11/25/2019 in follow-up on the regular medical floor. He is currently sitting up in bed. Awake and alert in no acute distress. Feeling about the same as compared to yesterday. No real improvement. He is maintaining O2 saturations in the 90s on 2 L/m per nasal cannula. He's been afebrile. Hemodynamically stable. Blood culture reveals no growth to date. White count 9.3. Hemoglobin 12.9. Sodium 1:30. Potassium 3.9. Creatinine 0.57. AST 185. ALT 102. Hepatitis screen negative. He remains on ceftriaxone and azithromycin. Bronchodilators as needed. The patient is seen today 11/26/2019 in follow-up on the regular medical floor. He is awake and alert in no acute distress. He is a bit more short of breath. Some what bronchospastic and wheezy today. Still with cough and congestion. He is maintaining O2 saturations in the mid 90s on 2 L/m per nasal cannula. He's been afebrile. Hemodynamically stable. Blood culture reveals no growth. Sodium 1:30. Potassium 3.8. Creatinine 0.60. AST 141. ALT 107. He remains on ceftriaxone and azithromycin. The patient is seen today 11/27/2019 in follow-up on the regular medical floor. He is currently resting comfortably in bed. No acute distress. Maintaining good O2 saturations in the 90s on room air. She's afebrile. Hemodynamically stable. Blood culture reveals no growth. Sputum culture pending. White count 7.0. Hemoglobin 12.0. Platelet count 97,000. Sodium 131. Potassium 3.9. Creatinine 0.55. AST 96. ALT 90. Alk phos 127. Chest x-ray reveals stable right lower lobe infiltrate. Remains on bronchodilators and azithromycin. Objective - Vital Signs Vital signs: Vital Signs Temp 97.7 F 11/27/19 06:56 Pulse 70 11/27/19 12:58 Resp 18 11/27/19 06:56 BP 157/73 11/27/19 06:56 Pulse Ox 93 L 11/27/19 06:56 Intake & Output 11/26/19 11/27/19 11/27/19 18:59 06:59 18:59 Intake Total 300 Balance 300 Intake: Oral 300 Other: Voiding Method Toilet Toilet Toilet Urinal Urinal Urinal # Voids 1 1 - Exam GENERAL EXAM: Alert, pleasant 59-year-old gentleman, on room air, comfortable in no apparent distress. HEAD: Normocephalic. EYES: Normal reaction of pupils, equal size. NOSE: Clear with pink turbinates. THROAT: No erythema or exudates. NECK: No masses, no JVD. CHEST: No chest wall deformity. LUNGS: Equal air entry with scattered rhonchi more so on the right lung CVS: S1 and S2 normal with no audible murmur, regular rhythm. ABDOMEN: No hepatosplenomegaly, normal bowel sounds, no guarding or rigidity. SPINE: No scoliosis or deformity SKIN: No rashes CENTRAL NERVOUS SYSTEM: No focal deficits, tone is normal in all 4 extremities. EXTREMITIES: There is no peripheral edema. No clubbing, no cyanosis. Peripheral pulses are intact. - Labs CBC & Chem 7: 11/27/19 07:15 11/27/19 07:15 Labs: Abnormal Lab Results - Last 24 Hours (Table) 11/25/19 11/25/19 11/27/19 Range/Units 06:41 06:41 07:15 RBC 3.48 L (4.30-5.90) m/uL Hgb 12.0 L (13.0-17.5) gm/dL Hct 37.1 L (39.0-53.0) % MCV 106.5 H (80.0-100.0) fL Plt Count 97 L (150-450) k/uL Sodium (137-145) mmol/L Creatinine (0.66-1.25) mg/dL Glucose (74-99) mg/dL Calcium (8.4-10.2) mg/dL Total Bilirubin (0.2-1.3) mg/dL AST (17-59) U/L ALT (4-49) U/L Alkaline Phosphatase (38-126) U/L Albumin (3.5-5.0) g/dL Albumin (PEP) 2.59 L (3.80-4.90) g/dL Gamma Globulins 1.53 H (0.70-1.50) g/dL Anti-Smooth Muscle Ab 43 H (<20) UNITS 11/27/19 Range/Units 07:15 RBC (4.30-5.90) m/uL Hgb (13.0-17.5) gm/dL Hct (39.0-53.0) % MCV (80.0-100.0) fL Plt Count (150-450) k/uL Sodium 131 L (137-145) mmol/L Creatinine 0.55 L (0.66-1.25) mg/dL Glucose 110 H (74-99) mg/dL Calcium 8.0 L (8.4-10.2) mg/dL Total Bilirubin 2.6 H (0.2-1.3) mg/dL AST 96 H (17-59) U/L ALT 90 H (4-49) U/L Alkaline Phosphatase 127 H (38-126) U/L Albumin 2.8 L (3.5-5.0) g/dL Albumin (PEP) (3.80-4.90) g/dL Gamma Globulins (0.70-1.50) g/dL Anti-Smooth Muscle Ab (<20) UNITS Microbiology - Last 24 Hours (Table) 11/26/19 00:01 Gram Stain - Preliminary Sputum Sputum Culture - Preliminary 11/23/19 15:14 Blood Culture - Preliminary Blood No Growth after 72 hours Assessment and Plan Assessment: Acute community-acquired right lung pneumonia Acute hypoxemic respiratory failure secondary to above Gallstone pancreatitis Sepsis secondary to above Liver cirrhosis Previous history of pancreatitis Alcohol use Hypertension Plan: The patient was seen and evaluated by Dr. Kaye Chest x-ray and labs reviewed Continue prednisone, DuoNeb scheduled, Robitussin-AC Continue azithromycin We'll continue to follow I, the cosigning physician, performed a history & physical examination of the patient. Lungs sounds with scattered rhonchi more so on the right. Maintaining good O2 saturations in the 90s on room air. I discussed the assessment and plan of care with my nurse practitioner, Zaida Moon. I attest to the above note as dictated by her.
[2019-11-27] MEDS: AZITHROMYCIN 500 MG TAB PO SCH (16:33)
[2019-11-27] MEDS: traZODone HCL 50 MG TAB PO SCH (21:24)
[2019-11-28] MEDS: guaiFENesin-Coden 100-10MG/5ML 10 ML CUP PO PRN ×3 (06:03→21:32)
[2019-11-28 07:04] LABS: Basophils % (A) 0 %; Eosinophils # (A) 0.1 k/uL (0-0.7); Eosinophils % (A) 3 %; HCT 36.6 % (39.0-53.0); HGB 11.6 gm/dL (13.0-17.5); Lymphocytes # (A) 0.5 k/uL (1.0-4.8); Lymphocytes % (A) 12 %; MCH 33.9 pg (25.0-35.0); MCHC 31.9 g/dL (31.0-37.0); MCV 106.3 fL (80.0-100.0); Macrocytosis Moderate; Mean Platelet Volume 7.8; Monocytes # (A) 0.4 k/uL (0-1.0); Monocytes % (A) 8 %; Neutrophils # (A) 3.5 k/uL (1.3-7.7); Neutrophils % (A) 74 %; Platelet Count 107 k/uL (150-450); RBC 3.44 m/uL (4.30-5.90); RDW 13.8 % (11.5-15.5); WBC 4.7 k/uL (3.8-10.6)
[2019-11-28 07:22] LABS: ALT 88 U/L (4-49); AST 78 U/L (17-59); African American GFR (CKD) >90 (>60 ml/min/1.73 sqM); Albumin 2.8 g/dL (3.5-5.0); Alkaline Phosphatase 113 U/L (38-126); Anion Gap 5 mmol/L; Blood Urea Nitrogen 14 mg/dL (9-20); Calcium 8.2 mg/dL (8.4-10.2); Carbon Dioxide 27 mmol/L (22-30); Chloride 101 mmol/L (98-107); Glucose 96 mg/dL (74-99); Non-African American GFR(CKD) >90 (>60 ml/min/1.73 sqM); Sodium 133 mmol/L (137-145); Total Bilirubin 2.3 mg/dL (0.2-1.3); Total Protein 6.4 g/dL (6.3-8.2)
[2019-11-28] MEDS: MULTIVITAMINS, THERA 1 EACH TAB PO SCH (08:28)
[2019-11-28] MEDS: FUROSEMIDE 20 MG TAB PO SCH (08:28)
[2019-11-28] MEDS: LOSARTAN 50 MG TAB PO SCH (08:28)
[2019-11-28] MEDS: predniSONE 20 MG TAB PO SCH (08:28)
[2019-11-28] MEDS: BISOPROLOL 5 MG TAB PO SCH (08:28)
[2019-11-28] MEDS: ASPIRIN 81 MG PO SCH (08:28)
[2019-11-28] MEDS: SPIRONOLACTONE 25 MG TAB PO SCH (08:28)
[2019-11-28] MEDS: IPRATROPIUM-ALBUTEROL 3 ML NEB INHALATION SCH ×4 (08:36→19:37)
--- NOTE | 2019-11-28 10:46 | P.PN ---
Subjective Progress Note Date: 11/28/19 Principal diagnosis: Right lung bronchopneumonia The patient is seen today 11/25/2019 in follow-up on the regular medical floor. He is currently sitting up in bed. Awake and alert in no acute distress. Feeling about the same as compared to yesterday. No real improvement. He is maintaining O2 saturations in the 90s on 2 L/m per nasal cannula. He's been afebrile. Hemodynamically stable. Blood culture reveals no growth to date. White count 9.3. Hemoglobin 12.9. Sodium 1:30. Potassium 3.9. Creatinine 0.57. AST 185. ALT 102. Hepatitis screen negative. He remains on ceftriaxone and azithromycin. Bronchodilators as needed. The patient is seen today 11/26/2019 in follow-up on the regular medical floor. He is awake and alert in no acute distress. He is a bit more short of breath. Some what bronchospastic and wheezy today. Still with cough and congestion. He is maintaining O2 saturations in the mid 90s on 2 L/m per nasal cannula. He's been afebrile. Hemodynamically stable. Blood culture reveals no growth. Sodium 1:30. Potassium 3.8. Creatinine 0.60. AST 141. ALT 107. He remains on ceftriaxone and azithromycin. The patient is seen today 11/27/2019 in follow-up on the regular medical floor. He is currently resting comfortably in bed. No acute distress. Maintaining good O2 saturations in the 90s on room air. She's afebrile. Hemodynamically stable. Blood culture reveals no growth. Sputum culture pending. White count 7.0. Hemoglobin 12.0. Platelet count 97,000. Sodium 131. Potassium 3.9. Creatinine 0.55. AST 96. ALT 90. Alk phos 127. Chest x-ray reveals stable right lower lobe infiltrate. Remains on bronchodilators and azithromycin. The patient is seen today 11/28/2019 in follow-up on the regular medical floor. He is awake and alert in no acute distress. Breathing easier today compared to yesterday. Still some cough and congestion. Stating he had a coughing episode approximate 4:30 this morning. He is maintaining good O2 saturations in the mid 90s on room air. He's afebrile. Hemodynamically stable. Blood cultures reveal no growth. Sputum culture positive for Kamryn only. White count 4.7. Hemo globin 11.6. Sodium 133. Potassium 4.0. Creatinine 0.58. AST 78. ALT 88. He is continued on DuoNeb inhalations, oral prednisone, azithromycin. Objective - Vital Signs Vital signs: Vital Signs Temp 98.0 F 11/28/19 07:31 Pulse 68 11/28/19 08:58 Resp 16 11/28/19 07:31 BP 138/78 11/28/19 07:31 Pulse Ox 95 11/28/19 07:31 Intake & Output 11/27/19 11/28/19 11/28/19 18:59 06:59 18:59 Intake Total 250 Balance 250 Intake: Oral 250 Other: Voiding Method Toilet Toilet Toilet Urinal Urinal Urinal # Voids 3 1 - Exam GENERAL EXAM: Alert, pleasant 59-year-old gentleman, on room air, comfortable in no apparent distress. HEAD: Normocephalic. EYES: Normal reaction of pupils, equal size. NOSE: Clear with pink turbinates. THROAT: No erythema or exudates. NECK: No masses, no JVD. CHEST: No chest wall deformity. LUNGS: Equal air entry with scattered rhonchi more so on the right lung CVS: S1 and S2 normal with no audible murmur, regular rhythm. ABDOMEN: No hepatosplenomegaly, normal bowel sounds, no guarding or rigidity. SPINE: No scoliosis or deformity SKIN: No rashes CENTRAL NERVOUS SYSTEM: No focal deficits, tone is normal in all 4 extremities. EXTREMITIES: There is no peripheral edema. No clubbing, no cyanosis. Peripheral pulses are intact. - Labs CBC & Chem 7: 11/28/19 06:24 11/28/19 06:24 Labs: Abnormal Lab Results - Last 24 Hours (Table) 11/28/19 11/28/19 Range/Units 06:24 06:24 RBC 3.44 L (4.30-5.90) m/uL Hgb 11.6 L (13.0-17.5) gm/dL Hct 36.6 L (39.0-53.0) % MCV 106.3 H (80.0-100.0) fL Plt Count 107 L (150-450) k/uL Lymphocytes # 0.5 L (1.0-4.8) k/uL Sodium 133 L (137-145) mmol/L Creatinine 0.58 L (0.66-1.25) mg/dL Calcium 8.2 L (8.4-10.2) mg/dL Total Bilirubin 2.3 H (0.2-1.3) mg/dL AST 78 H (17-59) U/L ALT 88 H (4-49) U/L Albumin 2.8 L (3.5-5.0) g/dL Microbiology - Last 24 Hours (Table) 11/26/19 00:01 Gram Stain - Final Sputum Sputum Culture - Final Kamryn albicans 11/23/19 15:14 Blood Culture - Preliminary Blood No Growth after 96 hours Assessment and Plan Assessment: Acute community-acquired right lung pneumonia Acute hypoxemic respiratory failure secondary to above Gallstone pancreatitis Sepsis secondary to above Liver cirrhosis Previous history of pancreatitis Alcohol use Hypertension Plan: The patient was seen and evaluated by Dr. Vargas Peterson prednisone, DuoNeb scheduled, Robitussin-AC Continue azithromycin Repeat chest x-ray in a.m. Probable discharge in the a.m. I, the cosigning physician, performed a history & physical examination of the patient. Lungs sounds with scattered rhonchi more so on the right. Maintaining good O2 saturations in the 90s on room air. I discussed the assessment and plan of care with my nurse practitioner, Zaida Moon. I attest to the above note as dictated by her.
--- NOTE | 2019-11-28 11:46 | P.PN ---
Subjective Progress Note Date: 11/28/19 This is a 59 year old male with a previous medical history significant for hypertension and hypertensive cardiovascular disease, hyperlipidemia, history of pancreatitis in the past along with prior history of sepsis due to cellulitis about 2 year ago, patient presented to the emergency department at [facility] after a week long of increased fatigue and generalized weakness associated with increased coughing with increased phlegm production, he has lost his appetite and has not been eating much, he denied any sick contact, he noticed that his urine is getting darker with nausea without any vomiting , and yesterday he had diarrhea and his son came and took him to the ER for evaluation, he had a CXR that showed right lower lobe pneumonia, and had leukocytosis with significant hyponatremia secondary to hypovolemia , his USof the abdomen suggesting of acute cholecystitis and gallstones , this was followed by CT chest/ Abdomen and pelvis that confirmed pneumonia and liver cirrhosis changes with splenomegaly, patient was admitted to the ICU and consultation for and Dr. Smith was obtained. 11/23: Patient has been transferred out of the intensive care unit and is seen t fermin on the [facility] floor. He has been afebrile since admission, blood pressure 139/75, pulse ox 94% on room air, heart rate 69. Repeat blood work reveals improving leukocytosis at 12.2, hemoglobin is 11.7, platelet count 76. Sodium improved to 127, potassium 3.4 and has been replaced, chloride 100, CO2 20, BUN 19 and creatinine 0.64. Blood sugars running between 101 and 117. Calcium 6.9. Patient states that he is feeling much better from yesterday. Patient complains of cough with sputum production. Patient has been seen by Dr. Kaye and legionella mycoplasma testing added. Coronavirus testing remains pending. Blood culture is status received. He is currently on antibiotics the form of azathioprine myosin and ceftriaxone. Sputum culture to be obtained. We have also added and alpha-fetoprotein tumor marker, ferritin level, viral hepatitis panel and consult with GI. Patient has been seen by Dr. Castaneda on previous admissions for acute pancreatitis. 11/24: Patient has been seen by Sera Smith with recommendations for chronic liver disease workup. Patient is seen and followed by pulmonary medicine. Patient has been afebrile, heart rate 68, blood pressure 133/79, pulse ox 94% on room air. Repeat blood work reveals Barbara BC 9.3, hemoglobin 12.9, platelet count 108. Sodium 130, potassium 3.9, chloride 99, CO2 25, BUN 13 and creatinine 0.57. Calcium 6.8, total bilirubin 3.9, AST 185, ALT 102. Ferritin level high at 469.6. Ammonia level 17. Alpha-fetoprotein tumor marker less than 2.5. Hepatitis panel negative. Coronavirus not detected. Urinalysis dark brown cloudy, blood large, bilirubin 1+, RBCs greater than 182, WBC 6, bacteria rare. Legionella, mycoplasma, alpha-1 antitrypsin, LINDSAY, ceruloplasmin, protein electrophoresis, iron profile, smooth muscle antibody pending. Patient is complaining of insomnia which has been a long-term problem for him. He has tried melatonin without improvement. Trazodone started. He continues to have cough. 11/25: Patient had a rough night with coughing and shortness of breath. He is improved at the time of evaluation. He continues to have cough with sputum production. He has been afebrile, heart rate 66, blood pressure 141/78, pulse ox 92% on room air. Sodium 130, Potassium 3.8. Creatinine 0.60. AST 141. ALT 107. He remains on ceftriaxone and azithromycin. Repeat chest x-ray has been ordered for tomorrow. We will add in Lasix, Aldactone and discontinue hydrochlorothiazide. Anticipate possible discharge over the weekend. Blood culture showing no growth at 48 hours. 11/26: Patient sitting up in no apparent distress he continues to be a bit short of breath. He denies any coughing or any phlegm production, he has no abdominal pain, nausea or vomiting he had urinated very well over the last 24 hours, he is not using his oxygen, he is ventilating very well, he is tolerating his diet very well, most likely would be staying in the hospital for another 24 hours and hopefully home on Friday. 11/27: Patient is laying down in bed in no apparent distress she had an episode of shortness of breath in the morning with increased coughing and minimal from production, he has no fever or chills at this time, he has no abdominal pain no nausea or vomiting has a good bowel movement is tolerating history metoprolol, he is likely will be discharged from the next 1 or 2 days likely on Friday. Objective - Vital Signs Vital signs: Vital Signs Temp 98.0 F 11/28/19 07:31 Pulse 68 11/28/19 08:58 Resp 16 11/28/19 07:31 BP 138/78 11/28/19 07:31 Pulse Ox 95 11/28/19 07:31 Intake & Output 11/27/19 11/28/19 11/28/19 18:59 06:59 18:59 Intake Total 250 Balance 250 Intake: Oral 250 Other: Voiding Method Toilet Toilet Toilet Urinal Urinal Urinal # Voids 3 1 - Exam - Exam Review of Systems Constitutional: Reports anorexia, Reports fatigue, Reports sweats, Reports weakness Eyes: denies blurred vision, denies bulging eye, denies decreased vision Ears, nose, mouth and throat: Denies dysphagia, Denies neck lump, Denies sore throat Cardiovascular: Reports decreased exercise tolerance, Reports dyspnea on ex ertion, Reports shortness of breath, Denies chest pain, Denies leg edema, Denies lightheadedness, Denies rapid heart beat, Denies syncope Respiratory: Reports congestion, Reports cough, Reports cough with sputum production, Reports respiratory infections, Reports sleep apnea, Denies hemoptysis, Denies home oxygen, Denies pain, Denies snoring, Denies wheezing Gastrointestinal: Reports bloating, Reports change in bowel habits, Reports dyspepsia, Reports early satiety, Reports indigestion, Reports jaundice, Reports loss of appetite, Reports nausea, Denies abdominal pain, Denies hematemesis, Denies hematochezia, Denies lactose intolerance, Denies melena, Denies vomiting Genitourinary: Reports nocturia, Denies dysuria Musculoskeletal: absent: ankle pain, ankle stiffness, ankle swelling, elbow p ain, elbow stiffness, elbow swelling, foot pain, foot stiffness, foot swelling, hand pain, hand stiffness, hand swelling, hip pain, hip stiffness, hip swelling, knee pain, knee stiffness, knee swelling, shoulder pain, shoulder stiffness, shoulder swelling, wrist pain, wrist stiffness, wrist swelling Integumentary: Denies pruritus, Denies rash Neurological: Denies numbness, Denies weakness Psychiatric: Denies anxiety, Denies depression Endocrine: Denies fatigue, Denies weight change Physical Examination: GEN: This is a 59-year-old male patient resting in bed and appears to be comfortable and in no acute distress. HEENT: head is atraumatic normocephalic, pupils were equal round reactive to light and accommodations extra ocular muscle movements were intact, sclerae were deeply icteric, mucous membranes of the mouth are somewhat dry. Neck: supple no JVP or lymphadenopathy. Chest: decrease breath sounds at the bases with mild positive egophony to the right middle and right lower lobes, few scattered rhonchi, no chest wall tenderness or intercostal retractions. Heart: first heart sound is depressed, second heart sound is normal there is no gallop or murmur. Abdomen: soft distended positive for splenomegaly, positive for bowel sounds. Extremities: chronic skin changes due to prior stasis dermatitis and possible old cellulitis. Neurologic examination: patient is awake alert and oriented X3 CN II-XII are grossly intact , muscle power 5/5 in upper and lower extremities , deep tendon reflexes were normal. - Labs CBC & Chem 7: 11/28/19 06:24 11/28/19 06:24 Labs: Abnormal Lab Results - Last 24 Hours (Table) 11/28/19 11/28/19 Range/Units 06:24 06:24 RBC 3.44 L (4.30-5.90) m/uL Hgb 11.6 L (13.0-17.5) gm/dL Hct 36.6 L (39.0-53.0) % MCV 106.3 H (80.0-100.0) fL Plt Count 107 L (150-450) k/uL Lymphocytes # 0.5 L (1.0-4.8) k/uL Sodium 133 L (137-145) mmol/L Creatinine 0.58 L (0.66-1.25) mg/dL Calcium 8.2 L (8.4-10.2) mg/dL Total Bilirubin 2.3 H (0.2-1.3) mg/dL AST 78 H (17-59) U/L ALT 88 H (4-49) U/L Albumin 2.8 L (3.5-5.0) g/dL Microbiology - Last 24 Hours (Table) 11/26/19 00:01 Gram Stain - Final Sputum Sputum Culture - Final Kamryn albicans 11/23/19 15:14 Blood Culture - Preliminary Blood No Growth after 96 hours Assessment and Plan Assessment: Assessment and Plan Plan: 1. Right lower lobe pneumonia with sepsis. Continue Zithromax 500 mg oral daily, we will continue with oxygen as needed, continue with DuoNeb 3 mL nebulization 4 times every day, sputum culture showed Kamryn albicans, blood cultures are negative after 96 hours, Mycoplasma IgG is positive Mycoplasma IgM is negative, keep the patient for another one of today's. 2. severe hypovolemic hyponatremia. His sodium is back to normal. 3. Leukocytosis due to pneumonia with sepsis. Resolved. 4. 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 Continue patient on Lasix 20 mg orally once every day spironolactone 25 mg orally once every day, continue bisoprolol 10 mg orally once every day was taken off hydrochlorothiazide due to hypovolemic hyponatremia. 5. History of pancreatitis in the past. stable. Appears stable 6. Hypertension and hypertensive cardiovascular disease. we will continue with Losartan 50 mg orally daily and Bisoprolol 10 mg orally daily. 7. Thrombocytopenia. likely related to lver cirrhosis. 8. DVT prophylaxis. we will start Heparin 5000 units SC q 12 hours. 9. GI prophylaxis. we will continue with protonix 40 mg orally daily. 10. Insomnia. We'll continue with trazodone 11. Increase activity. 12. Likely home on Friday.
--- NOTE | 2019-11-28 13:43 | PN ---
PROGRESS NOTE DATE OF SERVICE: 11/28/2019 INTERVAL HISTORY: Patient is a 59-year-old pleasant white male with positive alcoholic cirrhosis of the liver and elevated LFTs, admitted to the hospital with pneumonia. He is doing well. He states that early this morning he had severe wheezing and shortness of breath and felt better after receiving an albuterol treatment. This morning he is feeling better. PHYSICAL EXAMINATION: He appears comfortable. VITAL SIGNS: Stable. Blood pressure is 149/96, pulse rate 86 per minute and afebrile. HEENT: Examination unremarkable. Conjunctivae pink. Sclerae anicteric. Oral cavity no lesions. CHEST: Decreased breath sounds with expiratory wheezing. HEART: Regular rate and rhythm. ABDOMEN: Soft, it was obese. Bowel sounds are positive. No organomegaly. EXTREMITIES: Trace pedal edema. NEUROLOGIC: Alert and oriented x3. No focal deficits. LABS: From today WBC is 4.7, hemoglobin 11.6, platelets 107. AST and ALT are 78 and 88 respectively. T bilirubin of 2.3, alkaline phosphatase 113. IMPRESSION: 1. Pneumonia. On broad-spectrum antibiotics. 2. Alcoholic cirrhosis of the liver with portal hypertension. All workup for chronic liver disease has been negative. Serum transaminases gradually improving. T bilirubin is down to 2.3. RECOMMENDATIONS: Continue with current antibiotic therapy. In regard to the chronic liver disease and cirrhosis of the liver, I suggested that he follow up in the office in 3-4 weeks following discharge from the hospital. At this time we will sign off. Please call us if needed. Thank you for this consultation. MMALEKSANDER / MAITEN: [id number] /
[2019-11-28] MEDS: AZITHROMYCIN 500 MG TAB PO SCH (16:42)
[2019-11-28] MEDS: traZODone HCL 50 MG TAB PO SCH (21:28)
[2019-11-29] MEDS: ASPIRIN 81 MG PO SCH (07:26)
[2019-11-29] MEDS: SPIRONOLACTONE 25 MG TAB PO SCH (07:26)
[2019-11-29] MEDS: predniSONE 20 MG TAB PO SCH (07:26)
[2019-11-29] MEDS: LOSARTAN 50 MG TAB PO SCH (07:27)
[2019-11-29] MEDS: FUROSEMIDE 20 MG TAB PO SCH (07:27)
[2019-11-29] MEDS: MULTIVITAMINS, THERA 1 EACH TAB PO SCH (07:27)
[2019-11-29] MEDS: BISOPROLOL 5 MG TAB PO SCH (07:27)
[2019-11-29] MEDS: guaiFENesin-Coden 100-10MG/5ML 10 ML CUP PO PRN ×2 (07:29→17:59)
[2019-11-29] MEDS: IPRATROPIUM-ALBUTEROL 3 ML NEB INHALATION SCH ×4 (08:27→19:42)
--- NOTE | 2019-11-29 08:38 | XR ---
EXAMINATION TYPE: XR chest 2V DATE OF EXAM: 11/29/2019 CLINICAL HISTORY: Pneumonia TECHNIQUE: Frontal and lateral views of the chest are obtained. COMPARISON: 11/27/[address] chest 11/23/2019. FINDINGS: The cardiomediastinal silhouette is within normal limits for size. Pulmonary vasculature i s normal. Patchy airspace opacity of the right middle lobe is mildly decreased versus 11/27/2019 [facility]. No pleural effusion or pneumothorax seen. The osseous structures are intact. IMPRESSION: Right middle lobe pneumonia mildly decreased versus 11/27/2019 comparison.
--- NOTE | 2019-11-29 11:33 | P.PN ---
Subjective Progress Note Date: 11/29/19 Principal diagnosis: Right lung bronchopneumonia The patient is seen today 11/25/2019 in follow-up on the regular medical floor. He is currently sitting up in bed. Awake and alert in no acute distress. Feeling about the same as compared to yesterday. No real improvement. He is maintaining O2 saturations in the 90s on 2 L/m per nasal cannula. He's been afebrile. Hemodynamically stable. Blood culture reveals no growth to date. White count 9.3. Hemoglobin 12.9. Sodium 1:30. Potassium 3.9. Creatinine 0.57. AST 185. ALT 102. Hepatitis screen negative. He remains on ceftriaxone and azithromycin. Bronchodilators as needed. The patient is seen today 11/26/2019 in follow-up on the regular medical floor. He is awake and alert in no acute distress. He is a bit more short of breath. Some what bronchospastic and wheezy today. Still with cough and congestion. He is maintaining O2 saturations in the mid 90s on 2 L/m per nasal cannula. He's been afebrile. Hemodynamically stable. Blood culture reveals no growth. Sodium 1:30. Potassium 3.8. Creatinine 0.60. AST 141. ALT 107. He remains on ceftriaxone and azithromycin. The patient is seen today 11/27/2019 in follow-up on the regular medical floor. He is currently resting comfortably in bed. No acute distress. Maintaining good O2 saturations in the 90s on room air. She's afebrile. Hemodynamically stable. Blood culture reveals no growth. Sputum culture pending. White count 7.0. Hemoglobin 12.0. Platelet count 97,000. Sodium 131. Potassium 3.9. Creatinine 0.55. AST 96. ALT 90. Alk phos 127. Chest x-ray reveals stable right lower lobe infiltrate. Remains on bronchodilators and azithromycin. The patient is seen today 11/28/2019 in follow-up on the regular medical floor. He is awake and alert in no acute distress. Breathing easier today compared to yesterday. Still some cough and congestion. Stating he had a coughing episode approximate 4:30 this morning. He is maintaining good O2 saturations in the mid 90s on room air. He's afebrile. Hemodynamically stable. Blood cultures reveal no growth. Sputum culture positive for Kamryn only. White count 4.7. Hemo globin 11.6. Sodium 133. Potassium 4.0. Creatinine 0.58. AST 78. ALT 88. He is continued on DuoNeb inhalations, oral prednisone, azithromycin. On 11/29/2019 patient seen in follow-up on the regular medical surgical floor. He is awake and alert, in no acute distress, breathing easier today, he is on room air, lung sounds are clear, his chest x-ray shows clearing of the right middle lobe pneumonia. No fever or chills, no complaints of chest pain. Breathing is comfortable. Room air pulse ox is 95%, sputum culture showed Kamryn albicans only, blood culture showed no growth. Patient has been transitioned to oral prednisone, patient has completed a course of Zithromax and Rocephin. Objective - Vital Signs Vital signs: Vital Signs Temp 98.0 F 11/29/19 07:00 Pulse 60 11/29/19 08:40 Resp 18 11/29/19 08:00 BP 160/88 11/29/19 07:00 Pulse Ox 95 11/29/19 07:00 Intake & Output 11/28/19 11/29/19 11/29/19 18:59 06:59 18:59 Intake Total 1200 500 Balance 1200 500 Intake: Oral 1200 500 Other: Voiding Method Toilet Toilet Toilet Urinal Urinal Urinal # Voids 2 1 - Exam GENERAL EXAM: Alert, very pleasant, 59-year-old white male, on room air with a pulse ox of 95% comfortable in no apparent distress. HEAD: Normocephalic/atraumatic. EYES: Normal reaction of pupils, equal size. Conjunctiva pink, sclera white. NOSE: Clear with pink turbinates. THROAT: No erythema or exudates. NECK: No masses, no JVD, no thyroid enlargement, no adenopathy. CHEST: No chest wall deformity. Symmetrical expansion. LUNGS: Equal air entry with no crackles, wheeze, rhonchi or dullness. CVS: Regular rate and rhythm, normal S1 and S2, no gallops, no murmurs, no rubs ABDOMEN: Soft, nontender. No hepatosplenomegaly, normal bowel sounds, no guarding or rigidity. EXTREMITIES: No clubbing, no edema, no cyanosis, 2+ pulses and upper and lower extremities. MUSCULOSKELETAL: Muscle strength and tone normal. SPINE: No scoliosis or deformity SKIN: No rashes CENTRAL NERVOUS SYSTEM: Alert and oriented -3. No focal deficits, tone is normal in all 4 extremities. PSYCHIATRIC: Alert and oriented -3. Appropriate affect. Intact judgment and insight. - Labs CBC & Chem 7: 11/28/19 06:24 11/28/19 06:24 Labs: Microbiology - Last 24 Hours (Table) 11/23/19 15:14 Blood Culture - Preliminary Blood No Growth after 120 hours 11/26/19 00:01 Gram Stain - Final Sputum Sputum Culture - Final Kamryn albicans Assessment and Plan Plan: Assessment: #1. Acute community acquired right lung pneumonia, improving, patient completed a course of Rocephin and azithromycin #2. Acute hypoxemic respiratory failure secondary to the above, resolved #3. Gallstone pancreatitis #4. Sepsis secondary to the above #5. Liver cirrhosis #6. Previous history of pancreatitis #7. Alcohol use #8. Hypertension Plan: Continue current medical treatment, patient has completed his antibiotics, no fever or chills, chest x-ray shows improvement of the right lung pneumonia, patient is on room air, no acute events overnight, increase activity as tolerated, anticipate discharge home in the next 24 hours I performed a history & physical examination of the patient and discussed their management with my nurse practitioner, Shayla Jones. I reviewed the nurse practitioner's note and agree with the documented findings and plan of care. Lung sounds are positive for clear breath sounds. The findings and the impression was discussed with the patient. I attest to the documentation by the nurse practitioner. Time with Patient: Less than 30
--- NOTE | 2019-11-29 18:28 | P.PN ---
Subjective Progress Note Date: 11/29/19 This is a 59 year old male with a previous medical history significant for hypertension and hypertensive cardiovascular disease, hyperlipidemia, history of pancreatitis in the past along with prior history of sepsis due to cellulitis about 2 year ago, patient presented to the emergency department at [facility] after a week long of increased fatigue and generalized weakness associated with increased coughing with increased phlegm production, he has lost his appetite and has not been eating much, he denied any sick contact, he noticed that his urine is getting darker with nausea without any vomiting , and yesterday he had diarrhea and his son came and took him to the ER for evaluation, he had a CXR that showed right lower lobe pneumonia, and had leukocytosis with significant hyponatremia secondary to hypovolemia , his USof the abdomen suggesting of acute cholecystitis and gallstones , this was followed by CT chest/ Abdomen and pelvis that confirmed pneumonia and liver cirrhosis changes with splenomegaly, patient was admitted to the ICU and consultation for and Dr. Smith was obtained. 11/23: Patient has been transferred out of the intensive care unit and is seen t fermin on the [facility] floor. He has been afebrile since admission, blood pressure 139/75, pulse ox 94% on room air, heart rate 69. Repeat blood work reveals improving leukocytosis at 12.2, hemoglobin is 11.7, platelet count 76. Sodium improved to 127, potassium 3.4 and has been replaced, chloride 100, CO2 20, BUN 19 and creatinine 0.64. Blood sugars running between 101 and 117. Calcium 6.9. Patient states that he is feeling much better from yesterday. Patient complains of cough with sputum production. Patient has been seen by Dr. Kaye and legionella mycoplasma testing added. Coronavirus testing remains pending. Blood culture is status received. He is currently on antibiotics the form of azathioprine myosin and ceftriaxone. Sputum culture to be obtained. We have also added and alpha-fetoprotein tumor marker, ferritin level, viral hepatitis panel and consult with GI. Patient has been seen by Dr. Castaneda on previous admissions for acute pancreatitis. 11/24: Patient has been seen by Sera Smith with recommendations for chronic liver disease workup. Patient is seen and followed by pulmonary medicine. Patient has been afebrile, heart rate 68, blood pressure 133/79, pulse ox 94% on room air. Repeat blood work reveals Barbara BC 9.3, hemoglobin 12.9, platelet count 108. Sodium 130, potassium 3.9, chloride 99, CO2 25, BUN 13 and creatinine 0.57. Calcium 6.8, total bilirubin 3.9, AST 185, ALT 102. Ferritin level high at 469.6. Ammonia level 17. Alpha-fetoprotein tumor marker less than 2.5. Hepatitis panel negative. Coronavirus not detected. Urinalysis dark brown cloudy, blood large, bilirubin 1+, RBCs greater than 182, WBC 6, bacteria rare. Legionella, mycoplasma, alpha-1 antitrypsin, LINDSAY, ceruloplasmin, protein electrophoresis, iron profile, smooth muscle antibody pending. Patient is complaining of insomnia which has been a long-term problem for him. He has tried melatonin without improvement. Trazodone started. He continues to have cough. 11/25: Patient had a rough night with coughing and shortness of breath. He is improved at the time of evaluation. He continues to have cough with sputum production. He has been afebrile, heart rate 66, blood pressure 141/78, pulse ox 92% on room air. Sodium 130, Potassium 3.8. Creatinine 0.60. AST 141. ALT 107. He remains on ceftriaxone and azithromycin. Repeat chest x-ray has been ordered for tomorrow. We will add in Lasix, Aldactone and discontinue hydrochlorothiazide. Anticipate possible discharge over the weekend. Blood culture showing no growth at 48 hours. 11/26: Patient sitting up in no apparent distress he continues to be a bit short of breath. He denies any coughing or any phlegm production, he has no abdominal pain, nausea or vomiting he had urinated very well over the last 24 hours, he is not using his oxygen, he is ventilating very well, he is tolerating his diet very well, most likely would be staying in the hospital for another 24 hours and hopefully home on Friday. 11/27: Patient is laying down in bed in no apparent distress she had an episode of shortness of breath in the morning with increased coughing and minimal from production, he has no fever or chills at this time, he has no abdominal pain no nausea or vomiting has a good bowel movement is tolerating history metoprolol, he is likely will be discharged from the next 1 or 2 days likely on Friday. 11/28: Patient is doing much better , still feel short of breath and he requires nebulized treatment , less coughing and less phlegm production, patient has been using his Zihromax 500 mg po daily, likely home in 2 4 hours. Objective - Vital Signs Vital signs: Vital Signs Temp 98.0 F 11/29/19 07:00 Pulse 60 11/29/19 08:40 Resp 18 11/29/19 08:00 BP 160/88 11/29/19 07:00 Pulse Ox 95 11/29/19 07:00 Intake & Output 11/28/19 11/29/19 11/29/19 18:59 06:59 18:59 Intake Total 1200 500 Balance 1200 500 Intake: Oral 1200 500 Other: Voiding Method Toilet Toilet Toilet Urinal Urinal Urinal # Voids 2 1 - Exam - Exam Review of Systems Constitutional: Reports anorexia, Reports fatigue, Reports sweats, Reports weakness Eyes: denies blurred vision, denies bulging eye, denies decreased vision Ears, nose, mouth and throat: Denies dysphagia, Denies neck lump, Denies sore throat Cardiovascular: Reports decreased exercise tolerance, Reports dyspnea on exertion, Reports shortness of breath, Denies chest pain, Denies leg edema, Denies lightheadedness, Denies rapid heart beat, Denies syncope Respiratory: Reports congestion, Reports cough, Reports cough with sputum production, Reports respiratory infections, Reports sleep apnea, Denies hemoptysis, Denies home oxygen, Denies pain, Denies snoring, Denies wheezing Gastrointestinal: Reports bloating, Reports change in bowel habits, Reports dyspepsia, Reports early satiety, Reports indigestion, Reports jaundice, Reports loss of appetite, Reports nausea, Denies abdominal pain, Denies hematemesis, Denies hematochezia, Denies lactose intolerance, Denies melena, Denies vomiting Genitourinary: Reports nocturia, Denies dysuria Musculoskeletal: absent: ankle pain, ankle stiffness, ankle swelling, elbow pain, elbow stiffness, elbow swelling, foot pain, foot stiffness, foot swelling, hand pain, hand stiffness, hand swelling, hip pain, hip stiffness, hip swelling, knee pain, knee stiffness, knee swelling, shoulder pain, shoulder stiffness, shoulder swelling, wrist pain, wrist stiffness, wrist swelling Integumentary: Denies pruritus, Denies rash Neurological: Denies numbness, Denies weakness Psychiatric: Denies anxiety, Denies depression Endocrine: Denies fatigue, Denies weight change Physical Examination: GEN: This is a 59-year-old male patient resting in bed and appears to be comfortable and in no acute distress. HEENT: head is atraumatic normocephalic, pupils were equal round reactive to light and accommodations extra ocular muscle movements were intact, sclerae were deeply icteric, mucous membranes of the mouth are somewhat dry. Neck: supple no JVP or lymphadenopathy. Chest: decrease breath sounds at the bases with mild positive egophony to the right middle and right lower lobes, few scattered rhonchi, no chest wall tenderness or intercostal retractions. Heart: first heart sound is depressed, second heart sound is normal there is no gallop or murmur. Abdomen: soft distended positive for splenomegaly, positive for bowel sounds. Extremities: chronic skin changes due to prior stasis dermatitis and possible old cellulitis. Neurologic examination: patient is awake alert and oriented X3 CN II-XII are grossly intact , muscle power 5/5 in upper and lower extremities , deep tendon reflexes were normal. - Labs CBC & Chem 7: 11/28/19 06:24 11/28/19 06:24 Labs: Microbiology - Last 24 Hours (Table) 11/23/19 15:14 Blood Culture - Preliminary Blood No Growth after 120 hours 11/26/19 00:01 Gram Stain - Final Sputum Sputum Culture - Final Kamryn albicans Assessment and Plan Assessment: Assessment and Plan Plan: 1. Right lower lobe pneumonia with sepsis. Continue Zithromax 500 mg oral daily, we will continue with oxygen as needed, continue with DuoNeb 3 mL nebulization 4 times every day, sputum culture showed Kamryn albicans, blood cultures are negative after 96 hours, Mycoplasma IgG is positive Mycoplasma IgM is negative, keep the patient for another one of today's. 2. severe hypovolemic hyponatremia. His sodium is back to normal. 3. Leukocytosis due to pneumonia with sepsis. Resolved. 4. 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 Continue patient on Lasix 20 mg orally once every day spironolactone 25 mg orally once every day, continue bisoprolol 10 mg orally once every day was taken off hydrochlorothiazide due to hypovolemic hyponatremia. 5. History of pancreatitis in the past. stable. Appears stable 6. Hypertension and hypertensive cardiovascular disease. we will continue with Losartan 50 mg orally daily and Bisoprolol 10 mg orally daily. 7. Thrombocytopenia. likely related to lver cirrhosis. 8. DVT prophylaxis. we will start Heparin 5000 units SC q 12 hours. 9. GI prophylaxis. we will continue with protonix 40 mg orally daily. 10. Insomnia. We'll continue with trazodone 11. Increase activity. 12. Likely home in AM
[2019-11-29] MEDS: traZODone HCL 50 MG TAB PO SCH (21:43)
[2019-11-30] MEDS: guaiFENesin-Coden 100-10MG/5ML 10 ML CUP PO PRN (02:28)
[2019-11-30] MEDS: IPRATROPIUM-ALBUTEROL 3 ML NEB INHALATION SCH ×2 (07:28→12:44)
[2019-11-30] MEDS: predniSONE 20 MG TAB PO SCH (07:39)
[2019-11-30] MEDS: SPIRONOLACTONE 25 MG TAB PO SCH (07:40)
[2019-11-30] MEDS: FUROSEMIDE 20 MG TAB PO SCH (07:40)
[2019-11-30] MEDS: LOSARTAN 50 MG TAB PO SCH (07:40)
[2019-11-30] MEDS: ASPIRIN 81 MG PO SCH (07:40)
[2019-11-30] MEDS: MULTIVITAMINS, THERA 1 EACH TAB PO SCH (07:40)
[2019-11-30] MEDS: BISOPROLOL 5 MG TAB PO SCH (07:40)
[2019-11-30 07:56] VITALS: RESP 16
[2019-11-30 08:07] VITALS: BP 126/81; PULSE 66; TEMP 98.4
[2019-11-30 08:26] LABS: Basophils % (A) 0 %; Eosinophils # (A) 0.1 k/uL (0-0.7); Eosinophils % (A) 1 %; HCT 43.9 % (39.0-53.0); HGB 14.1 gm/dL (13.0-17.5); Lymphocytes % (A) 15 %; MCH 34.7 pg (25.0-35.0); MCHC 32.2 g/dL (31.0-37.0); MCV 107.8 fL (80.0-100.0); Macrocytosis Moderate; Mean Platelet Volume 7.2; Monocytes # (A) 0.6 k/uL (0-1.0); Monocytes % (A) 8 %; Neutrophils % (A) 72 %; RBC 4.07 m/uL (4.30-5.90); RDW 13.8 % (11.5-15.5)
[2019-11-30 08:28] LABS: Platelet Count 174 k/uL (150-450)
[2019-11-30 08:30] LABS: ALT 95 U/L (4-49); AST 70 U/L (17-59); African American GFR (CKD) >90 (>60 ml/min/1.73 sqM); Albumin 3.4 g/dL (3.5-5.0); Alkaline Phosphatase 116 U/L (38-126); Anion Gap 7 mmol/L; Blood Urea Nitrogen 17 mg/dL (9-20); Calcium 8.8 mg/dL (8.4-10.2); Carbon Dioxide 29 mmol/L (22-30); Chloride 98 mmol/L (98-107); Glucose 85 mg/dL (74-99); Non-African American GFR(CKD) >90 (>60 ml/min/1.73 sqM); Potassium 4.3 mmol/L (3.5-5.1); Sodium 134 mmol/L (137-145); Total Bilirubin 2.6 mg/dL (0.2-1.3); Total Protein 7.6 g/dL (6.3-8.2)
--- NOTE | 2019-11-30 11:19 | P.PN ---
Subjective Progress Note Date: 11/30/19 Principal diagnosis: Right lung bronchopneumonia The patient is seen today 11/25/2019 in follow-up on the regular medical floor. He is currently sitting up in bed. Awake and alert in no acute distress. Feeling about the same as compared to yesterday. No real improvement. He is maintaining O2 saturations in the 90s on 2 L/m per nasal cannula. He's been afebrile. Hemodynamically stable. Blood culture reveals no growth to date. White count 9.3. Hemoglobin 12.9. Sodium 1:30. Potassium 3.9. Creatinine 0.57. AST 185. ALT 102. Hepatitis screen negative. He remains on ceftriaxone and azithromycin. Bronchodilators as needed. The patient is seen today 11/26/2019 in follow-up on the regular medical floor. He is awake and alert in no acute distress. He is a bit more short of breath. Some what bronchospastic and wheezy today. Still with cough and congestion. He is maintaining O2 saturations in the mid 90s on 2 L/m per nasal cannula. He's been afebrile. Hemodynamically stable. Blood culture reveals no growth. Sodium 1:30. Potassium 3.8. Creatinine 0.60. AST 141. ALT 107. He remains on ceftriaxone and azithromycin. The patient is seen today 11/27/2019 in follow-up on the regular medical floor. He is currently resting comfortably in bed. No acute distress. Maintaining good O2 saturations in the 90s on room air. She's afebrile. Hemodynamically stable. Blood culture reveals no growth. Sputum culture pending. White count 7.0. Hemoglobin 12.0. Platelet count 97,000. Sodium 131. Potassium 3.9. Creatinine 0.55. AST 96. ALT 90. Alk phos 127. Chest x-ray reveals stable right lower lobe infiltrate. Remains on bronchodilators and azithromycin. The patient is seen today 11/28/2019 in follow-up on the regular medical floor. He is awake and alert in no acute distress. Breathing easier today compared to yesterday. Still some cough and congestion. Stating he had a coughing episode approximate 4:30 this morning. He is maintaining good O2 saturations in the mid 90s on room air. He's afebrile. Hemodynamically stable. Blood cultures reveal no growth. Sputum culture positive for Kamryn only. White count 4.7. Hemo globin 11.6. Sodium 133. Potassium 4.0. Creatinine 0.58. AST 78. ALT 88. He is continued on DuoNeb inhalations, oral prednisone, azithromycin. On 11/29/2019 patient seen in follow-up on the regular medical surgical floor. He is awake and alert, in no acute distress, breathing easier today, he is on room air, lung sounds are clear, his chest x-ray shows clearing of the right middle lobe pneumonia. No fever or chills, no complaints of chest pain. Breathing is comfortable. Room air pulse ox is 95%, sputum culture showed Kamryn albicans only, blood culture showed no growth. Patient has been transitioned to oral prednisone, patient has completed a course of Zithromax and Rocephin. On 11/30/2019 patient seen in follow-up on the regular medical surgical floor. Clinically has remained stable over last few days, no specific complaints, no shortness of breath, mild end expiratory wheezing in bilateral lower lobes, no phlegm production, no hemoptysis, no complaints of chest pain, breathing is comfortable, room air pulse ox is 97%, respirations are equal and nonlabored, afebrile. Blood cultures have shown no growth, sputum culture was positive for Kamryn albicans only, patient has completed his course of azithromycin and Rocephin, yesterday chest x-ray showed improvement in the appearance of right lung pneumonia. His lab work shows no evidence of leukocytosis, with white blood cell, 7.0, hemoglobin of 14.1, sodium is 134, respiratory electrolytes were within normal limits, BUN 17 creatinine 0.61 Objective - Vital Signs Vital signs: Vital Signs Temp 98.4 F 11/30/19 07:00 Pulse 66 11/30/19 08:00 Resp 16 11/30/19 08:00 BP 126/81 11/30/19 07:00 Pulse Ox 97 11/30/19 07:00 Intake & Output 11/29/19 11/30/19 11/30/19 18:59 06:59 18:59 Other: Voiding Method Toilet Toilet Toilet Urinal Urinal Urinal # Voids 2 2 - Exam GENERAL EXAM: Alert, very pleasant, 59-year-old white male, on room air with a pulse ox of 97% comfortable in no apparent distress. HEAD: Normocephalic/atraumatic. EYES: Normal reaction of pupils, equal size. Conjunctiva pink, sclera white. NOSE: Clear with pink turbinates. THROAT: No erythema or exudates. NECK: No masses, no JVD, no thyroid enlargement, no adenopathy. CHEST: No chest wall deformity. Symmetrical expansion. LUNGS: Equal air entry with no crackles, wheeze, rhonchi or dullness. CVS: Regular rate and rhythm, normal S1 and S2, no gallops, no murmurs, no rubs ABDOMEN: Soft, nontender. No hepatosplenomegaly, normal bowel sounds, no guarding or rigidity. EXTREMITIES: No clubbing, no edema, no cyanosis, 2+ pulses and upper and lower extremities. MUSCULOSKELETAL: Muscle strength and tone normal. SPINE: No scoliosis or deformity SKIN: No rashes CENTRAL NERVOUS SYSTEM: Alert and oriented -3. No focal deficits, tone is normal in all 4 extremities. PSYCHIATRIC: Alert and oriented -3. Appropriate affect. Intact judgment and insight. - Labs CBC & Chem 7: 11/30/19 07:42 11/30/19 07:42 Labs: Abnormal Lab Results - Last 24 Hours (Table) 11/30/19 11/30/19 Range/Units 07:42 07:42 RBC 4.07 L (4.30-5.90) m/uL MCV 107.8 H (80.0-100.0) fL Sodium 134 L (137-145) mmol/L Creatinine 0.61 L (0.66-1.25) mg/dL Total Bilirubin 2.6 H (0.2-1.3) mg/dL AST 70 H (17-59) U/L ALT 95 H (4-49) U/L Albumin 3.4 L (3.5-5.0) g/dL Microbiology - Last 24 Hours (Table) 11/23/19 15:14 Blood Culture - Final Blood No Growth after 144 hours Assessment and Plan Plan: Assessment: #1. Acute community acquired right lung pneumonia, improving, patient completed a course of Rocephin and azithromycin #2. Acute hypoxemic respiratory failure secondary to the above, resolved #3. Gallstone pancreatitis #4. Sepsis secondary to the above #5. Liver cirrhosis #6. Previous history of pancreatitis #7. Alcohol use #8. Hypertension Plan: Patient remains stable, no specific complaints, no acute events overnight, he is on room air, his been afebrile, he has completed his antibiotics, no leukocytosis and today's labs, today's chest x-ray has been reviewed, showing some patchy airspace residual pneumonia in the right middle lobe, improved since admission, and a relatively unchanged since yesterday's exam. From pulmonary perspective patient is stable for discharge home today and she will need outpatient follow-up with Dr. Kaye in the office in 7-10 days I performed a history & physical examination of the patient and discussed their management with my nurse practitioner, Shayla Jones. I reviewed the nurse practitioner's note and agree with the documented findings and plan of care. Lung sounds are positive for clear breath sounds. The findings and the impression was discussed with the patient. I attest to the documentation by the nurse practitioner. Time with Patient: Less than 30
--- NOTE | 2019-11-30 12:34 | XR ---
EXAMINATION TYPE: XR chest 2V DATE OF EXAM: 11/30/2019 CLINICAL HISTORY: Pneumonia TECHNIQUE: Frontal and lateral views of the chest are obtained. COMPARISON: 12/04 07/25 chest radiograph FINDINGS: The cardiomediastinal silhouette is within normal limits for size. Pulmonary vasculature i s normal. Patchy subtle airspace opacity of the right middle lobe. No pleural effusion, or pneumothor ax seen. The osseous structures are intact. IMPRESSION: Right middle lobe consolidation similar to 11/29/2019, and decreased versus 11/27/2019 comp ron.
--- NOTE | 2019-11-30 12:51 | P.DS ---
Providers Date of admission: 11/23/19 16:31 Expected date of discharge: 11/30/19 Attending physician: Reggie Cho Consults: 11/23/19 17:51 Consult Physician Urgent Consulting Provider: Ajay Kaye Consult Reason/Comments: critical care Do you want consulting provider notified?: Already Contacted 11/24/19 13:03 Consult Physician Routine Consulting Provider: Ana Rosa Smith Consult Reason/Comments: elevated liver enzymes Do you want consulting provider notified?: Yes Primary care physician: Noman Ramos [facility] Course: This is a 59 year old male with a previous medical history significant for hypertension and hypertensive cardiovascular disease, hyperlipidemia, history of pancreatitis in the past along with prior history of sepsis due to cellulitis about 2 year ago, patient presented to the emergency department at [facility] after a week long of increased fatigue and generalized weakness associated with increased coughing with increased phlegm production, he has lost his appetite and has not been eating much, he denied any sick contact, he noticed that his urine is getting darker with nausea without any vomiting , and yesterday he had diarrhea and his son came and took him to the ER for evaluation, he had a CXR that showed right lower lobe pneumonia, and had leukocytosis with significant hyponatremia secondary to hypovolemia , his USof t he abdomen suggesting of acute cholecystitis and gallstones , this was followed by CT chest/ Abdomen and pelvis that confirmed pneumonia and liver cirrhosis changes with splenomegaly, patient was admitted to the ICU and consultation for and Dr. Smith was obtained. 11/23: Patient has been transferred out of the intensive care unit and is seen today on the [facility] floor. He has been afebrile since admission, blood pressure 139/75, pulse ox 94% on room air, heart rate 69. Repeat blood work reveals improving leukocytosis at 12.2, hemoglobin is 11.7, platelet count 76. Sodium improved to 127, potassium 3.4 and has been replaced, chloride 100, CO2 20, BUN 19 and creatinine 0.64. Blood sugars running between 101 and 117. Calcium 6.9. Patient states that he is feeling much better from yesterday. Patient complains of cough with sputum production. Patient has been seen by Dr. Kaye and legionella mycoplasma testing added. Coronavirus testing remains pending. Blood culture is status received. He is currently on antibiotics the form of azathioprine myosin and ceftriaxone. Sputum culture to be obtained. We have also added and alpha-fetoprotein tumor marker, ferritin level, viral hepatitis panel and consult with GI. Patient has been seen by Dr. Castaneda on previous admissions for acute pancreatitis. 11/24: Patient has been seen by Sera Smith with recommendations for chronic liver disease workup. Patient is seen and followed by pulmonary medicine. Patient has been afebrile, heart rate 68, blood pressure 133/79, pulse ox 94% on room air. Repeat blood work reveals Barbara BC 9.3, hemoglobin 12.9, platelet count 108. Sodium 130, potassium 3.9, chloride 99, CO2 25, BUN 13 and creatinine 0.57. Calcium 6.8, total bilirubin 3.9, AST 185, ALT 102. Ferritin level high at 469.6. Ammonia level 17. Alpha-fetoprotein tumor marker less than 2.5. Hepatitis panel negative. Coronavirus not detected. Urinalysis dark brown cloudy, blood large, bilirubin 1+, RBCs greater than 182, WBC 6, bacteria rare. Legionella, mycoplasma, alpha-1 antitrypsin, LINDSAY, ceruloplasmin, protein electrophoresis, iron profile, smooth muscle antibody pending. Patient is complaining of insomnia which has been a long-term problem for him. He has tried melatonin without improvement. Trazodone started. He continues to have cough. 11/25: Patient had a rough night with coughing and shortness of breath. He is improved at the time of evaluation. He continues to have cough with sputum production. He has been afebrile, heart rate 66, blood pressure 141/78, pulse ox 92% on room air. Sodium 130, Potassium 3.8. Creatinine 0.60. AST 141. ALT 107. He remains on ceftriaxone and azithromycin. Repeat chest x-ray has been ordered for tomorrow. We will add in Lasix, Aldactone and discontinue hydrochlorothiazide. Anticipate possible discharge over the weekend. Blood culture showing no growth at 48 hours. 11/26: Patient sitting up in no apparent distress he continues to be a bit short of breath. He denies any coughing or any phlegm production, he has no abdominal pain, nausea or vomiting he had urinated very well over the last 24 hours, he is not using his oxygen, he is ventilating very well, he is tolerating his diet very well, most likely would be staying in the hospital for another 24 hours and hopefully home on Friday. 11/27: Patient is laying down in bed in no apparent distress she had an episode of shortness of breath in the morning with increased coughing and minimal from production, he has no fever or chills at this time, he has no abdominal pain no nausea or vomiting has a good bowel movement is tolerating history metoprolol, he is likely will be discharged from the next 1 or 2 days likely on Friday. 11/28: Patient is doing much better , still feel short of breath and he requires nebulized treatment , less coughing and less phlegm production, patient has been using his Zihromax 500 mg po daily, likely home in 2 4 hours. discharge diagnoses: 1. Right lower lobe pneumonia with sepsis. 2. severe hypovolemic hyponatremia. 3. Leukocytosis due to pneumonia with sepsis. 4. 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 5. History of pancreatitis in the past. 6. Hypertension and hypertensive cardiovascular disease. 7. Thrombocytopenia Patient Condition at Discharge: Serious Plan - Discharge Summary New Discharge Prescriptions: No Action Bisoprolol-Hctz 10-6.25 mg [Ziac 10-6.25 MG] 1 tab PO DAILY Irbesartan [Avapro] 150 mg PO DAILY Aspirin EC [Ecotrin Low Dose] 81 mg PO DAILY Vitamin D3(Unknown Dose) 1 tab PO DAILY Multivit-Min/FA/Lycopen/Lutein [Centrum Silver Men Tablet] 1 tab PO DAILY Discharge Medication List Bisoprolol-Hctz 10-6.25 mg [Ziac 10-6.25 MG] 1 tab PO DAILY 05/23/18 [History] Aspirin EC [Ecotrin Low Dose] 81 mg PO DAILY 11/23/19 [History] Irbesartan [Avapro] 150 mg PO DAILY 11/23/19 [History] Multivit-Min/FA/Lycopen/Lutein [Centrum Silver Men Tablet] 1 tab PO DAILY 11/23/19 [History] Vitamin D3(Unknown Dose) 1 tab PO DAILY 11/23/19 [History] Follow up Appointment(s)/Referral(s): Reggie Cho MD [STAFF PHYSICIAN] - 1 Week Ana Rosa Smith MD [STAFF PHYSICIAN] - 2 Weeks
--- NOTE | 2019-12-02 13:45 | CDI ---
Documentation Clarification Form Date: 12/02/2019 01:27:19 PM From: Nirali Subramanian Phone: If you have a question about this query, please contact Holly José Chart Writer at [phone] between 8am and 5pm. Admit Date: 11/23/2019 04:31:00 PM Patient Name: Fred Kim Visit Number: [id number] Discharge Date: 11/30/2019 02:28:00 PM ATTENTION: The Clinical Documentation Specialists (CDI) and [facility] Coding Staff appreciate your assistance in clarifying documentation. Please respond to the clarification below the line at the bottom and electronically sign. The CDI & [facility] Coding staff will review the response and follow-up if needed. Please note: Queries are made part of the Legal Health Record. If you have any questions, please contact the author of this message via ITS. Dr. Reggie Cho The patient presented with documented sepsis secondary to pneumonia. Per 11/29 PN Sputum culture was positive for Kamryn Albicans. Please clarify if there is any clinical significance to sputum culture being positive for Kamryn albicans. History/Risk Factors: Patient with sepsis and pneumonia, cholecystitis and gallstone pancreatitis, alcoholic liver disease portal HTN and jaundice. Lab findings: sputum positive for Kamryn Albicans Radiology findings: Correlate for pneumonia Vital Signs: 102 F, 85 bpm, 18 124/64 98 % RA on admit then 89% Other Clinical Indicators: Treatment: Zithromax 500 mg IVPB And Rocephin 1 gr. IVPB O2 nebulizer treatments Consults: Pulmonary In your professional opinion, can you please clarify Clinical significance of Kamryn Albicans in sputum culture No clinical significance Other, please specify Unable to determine No clinical significance of Kamryn Albicans in sputum MTDD
== END 2019-11-30 14:28 | disposition home or self-care (01) | DRG 871 ==
LOC: EC 14:50 → 3SCARD 16:31 → 2SICU 17:15 → 4SSUR 11-24 10:43
PROVIDERS: ADMIT Internal Medicine; ATTEND Internal Medicine
DX: A41.9 Sepsis, unspecified organism (principal); J18.0 Bronchopneumonia, unspecified organism; J96.01 Acute respiratory failure with hypoxia; K85.10 Biliary acute pancreatitis without necrosis or infection; D68.9 Coagulation defect, unspecified; E87.1 Hypo-osmolality and hyponatremia; K76.6 Portal hypertension; K80.00 Calculus of gallbladder with acute cholecystitis without obstruction; D50.9 Iron deficiency anemia, unspecified; D53.9 Nutritional anemia, unspecified; D69.59 Other secondary thrombocytopenia; E78.5 Hyperlipidemia, unspecified; E86.1 Hypovolemia; Z20.828 Contact with and (suspected) exposure to other viral communicable diseases; G47.00 Insomnia, unspecified; I11.9 Hypertensive heart disease without heart failure; K70.30 Alcoholic cirrhosis of liver without ascites; K70.0 Alcoholic fatty liver; Z79.82 Long term (current) use of aspirin; Z79.899 Other long term (current) drug therapy; Z82.3 Family history of stroke; Z82.49 Family history of ischemic heart disease and other diseases of the circulatory system; I86.8 Varicose veins of other specified sites; R16.1 Splenomegaly, not elsewhere classified; Z88.8 Allergy status to other drugs, medicaments and biological substances; F10.20 Alcohol dependence, uncomplicated
CPT/HCPCS: 36415; 71045; 71046; 71260; 74177; 76705; 80048; 80053; 80074; 81001; 82103; 82105; 82140; 82150; 82390; 82728; 83516; 83540; 83550; 83605; 83615; 83690; 83735; 84145; 84165; 85025; 85027; 85610; 85730; 86038; 86140; 86738; 87040; 87070; 87205; 87449; 93005; 94640; 94760; 96365; 96367; 99291

== ENCOUNTER → 2020-05-26 | Outpatient (CLI) | payer OTHER ==
--- NOTE | 2020-05-26 16:05 | XR ---
EXAMINATION TYPE: XR Hip Bilateral Complete DATE OF EXAM: 05/26/2020 COMPARISON: NONE HISTORY: Pain TECHNIQUE: 2 views submitted of each hip FINDINGS: There is no evidence of erosive change or acute fracture. Hypertrophic change of the acetabulum bilat erally. Mild concentric narrowing of joint space. Tiny density seen adjacent to the lateral margin th e right acetabulum. Vascular calcifications noted. IMPRESSION: 1. No evidence of acute fracture or dislocation. 2. Mild arthropathy correlate for femoral acetabular impingement. Tiny density seen along the lateral margin of the right acetabulum can sometimes be associated with chronic acetabular labral tear. 3. Calcifications in the pelvis likely vascular. If there is concern for ureteral stone correlate wit h noncontrast CT.
--- NOTE | 2020-05-26 16:10 | XR ---
EXAMINATION TYPE: XR knee standing AP BILAT DATE OF EXAM: 05/26/2020 COMPARISON: NONE HISTORY: Pain TECHNIQUE: 5 views of each knee submitted including a standing frontal view. FINDINGS: There is narrowing of the medial compartment of the knee joint with no evidence of erosive change. Mild hypertrophic changes are seen. Mild hypertrophic arthropathy of the bilateral patellofem oral joint. Osseous structures intact. No acute fracture or dislocation. IMPRESSION: 1. Mild bilateral osteoarthritis.
== END | disposition home or self-care (01) ==
LOC: RADXRMAIN 14:24
PROVIDERS: ATTEND Internal Medicine
DX: M12.852 Other specific arthropathies, not elsewhere classified, left hip (principal); M12.851 Other specific arthropathies, not elsewhere classified, right hip; M85.88 Other specified disorders of bone density and structure, other site
CPT/HCPCS: 73521; 73565

== ENCOUNTER 2021-07-13 14:57 | Inpatient (IN) | payer OTHER ==
--- NOTE | 2021-07-13 17:24 | ED ---
General Adult HPI - General Chief complaint: Extremity Problem,Nontraumatic Stated complaint: R leg swelling-sent by Dr. Cho Source: patient Mode of arrival: ambulatory Limitations: no limitations - History of Present Illness Initial comments: 61-year-old male with past medical history of liver cirrhosis secondary to alcohol use, pancreatitis, hypertension presents emergency Department with lower extremity edema. He was hospitalized at our facility from June 18. He was then discharged to [facility]. He just returned home on Friday. States he is having difficulty living at home. Cannot take care of himself. Has difficulty ambulating, getting dressed. Swelling in his legs has gotten increasingly worse. He has shortness of breath when at rest. No chest pain. States that his abdominal girth does not appear to be increasing in size. He has been taking his diuretics as directed without any missed doses. No fevers, chills or cough. No changes in his bowel or bladder habits. Patient was seen in Dr. Humphrey office earlier today and was directed to come into the emergency department for admission. No other alleviating, precipitating or modifying factors - Related Data Home Medications Medication Instructions Recorded Confirmed Albuterol Sulfate [Proair Hfa] 2 puff INHALATION RT-Q6H PRN 06/18/21 07/13/21 Zinc Gluconate [Zinc] 50 mg PO HS 06/18/21 07/13/21 traZODone HCL [Desyrel] 100 mg PO HS 06/18/21 07/13/21 Furosemide [Lasix] 20 mg PO DAILY 07/13/21 07/13/21 Midodrine [ProAmatine] 5 mg PO Q8H 07/13/21 07/13/21 Spironolactone 25 mg PO DAILY 07/13/21 07/13/21 Previous Rx's Medication Instructions Recorded Ipratropium-Albuterol Nebulize 3 ml INHALATION RT-QID PRN ml 06/22/21 [Duoneb 0.5 mg-3 mg/3 ml Soln] Pantoprazole [Protonix] 40 mg PO AC-[id number] tab 06/22/21 Allergies Allergy/AdvReac Type Severity Reaction Status Date / Time lisinopril AdvReac causes Verified 07/13/21 17:28 pancreatitis Review of Systems ROS Statement: Those systems with pertinent positive or pertinent negative responses have been documented in the HPI. ROS Other: All systems not noted in ROS Statement are negative. Past Medical History Past Medical History: Hypertension, Liver Disease, Pneumonia Additional Past Medical History / Comment(s): Liver cirrhosis, splenomegaly, pancreatitis-pt states pancreatitis was side effect from Lisinopril, pt denies hx of alcoholism/drinking heavily, cellulitis with sepsis History of Any Multi-Drug Resistant Organisms: None Reported Past Surgical History: No Surgical Hx Reported Additional Past Surgical History / Comment(s): Pt has never had surgery. Past Anesthesia/Blood Transfusion Reactions: Unable to Obtain Additional Past Anesthesia/Blood Transfusion Reaction / Comment(s): Pt has never had anesthesia Past Psychological History: No Psychological Hx Reported Smoking Status: Never smoker Past Alcohol Use History: None Reported Past Drug Use History: None Reported - Past Family History Mother Family Medical History: Hypertension Additional Family Medical History / Comment(s): Mother lived to be 91 yrs old. Father Family Medical History: CVA/TIA Additional Family Medical History / Comment(s): Father of a CVA at the age of 65yrs. Son(s) Family Medical History: No Reported History Daughter(s) Family Medical History: No Reported History General Exam Limitations: no limitations Course Vital Signs 07/13/21 07/13/21 07/13/21 15:00 16:36 18:44 Temperature 97.4 F L Pulse Rate 106 H 95 91 Respiratory 20 18 18 Rate Blood Pressure 151/78 116/79 121/73 O2 Sat by Pulse 97 99 100 Oximetry 07/13/21 20:28 Temperature 98.2 F Pulse Rate 98 Respiratory 20 Rate Blood Pressure 123/76 O2 Sat by Pulse 98 Oximetry EKG Findings - EKG Comments: EKG Findings:: EKG demonstrates sinus rhythm with a rate of 93. ID interval 202. QRS 77. QTC 407. No acute ST segment elevations or depressions Medical Decision Making - Medical Decision Making Upon arrival the patient is placed into room 4. A thorough history and physical exam is performed. IV access is established and laboratory studies are conducted. Patient does have a pancytopenia. INR 1.6. D-dimer 2. Sodium low at 1:30. Bilirubin down to 6. Chest x-ray demonstrates no acute cardiopulmonary process. CT of the chest is performed because of the elevated d-dimer. Demonstrates scattered reticular opacities most pronounced in the right upper lobe. Hepatic cirrhosis with ascites. No evidence of PE. Results are discussed patient. Discussed results with Dr. Cho. He recommends 40 mg Lasix twice a day and 50 mg of spironolactone daily. Patient is given an additional 25 mg of spironolactone as he already took his home dose. Patient's admitted and taken to the floor in stable condition - Lab Data Result diagrams: 07/13/21 17:11 07/13/21 17:11 Lab Results 07/13/21 07/13/21 07/13/21 Range/Units 17:11 17:11 17:11 WBC 3.7 L (3.8-10.6) k/uL RBC 2.40 L (4.30-5.90) m/uL Hgb 9.2 L D (13.0-17.5) gm/dL Hct 28.1 L (39.0-53.0) % MCV 117.3 H (80.0-100.0) fL MCH 38.4 H (25.0-35.0) pg MCHC 32.8 (31.0-37.0) g/dL RDW 17.3 H (11.5-15.5) % Plt Count 64 L (150-450) k/uL MPV 8.1 Neutrophils % (Manual) 83 % Lymphocytes % (Manual) 4 % Monocytes % (Manual) 5 % Eosinophils % (Manual) 8 % Neutrophils # (Manual) 3.07 (1.3-7.7) k/uL Lymphocytes # (Manual) 0.15 L (1.0-4.8) k/uL Monocytes # (Manual) 0.19 (0-1.0) k/uL Eosinophils # (Manual) 0.30 (0-0.7) k/uL Nucleated RBCs 0 (0-0) /100 WBC Manual Slide Review Performed Polychromasia Present Hypochromasia Moderate Poikilocytosis Slight Anisocytosis Slight Macrocytosis Marked A PT 16.7 H (9.0-12.0) sec INR 1.6 H (<1.2) APTT 30.2 H (22.0-30.0) sec D-Dimer 2.06 H (<0.60) mg/L FEU Sodium 130 L (137-145) mmol/L Potassium 4.2 (3.5-5.1) mmol/L Chloride 104 (98-107) mmol/L Carbon Dioxide 21 L (22-30) mmol/L Anion Gap 5 mmol/L BUN 13 (9-20) mg/dL Creatinine 0.75 (0.66-1.25) mg/dL Est GFR (CKD-EPI)AfAm >90 (>60 ml/min/1.73 sqM) Est GFR (CKD-EPI)NonAf >90 (>60 ml/min/1.73 sqM) Glucose 103 H (74-99) mg/dL Plasma Lactic Acid Mason (0.7-2.0) mmol/L Calcium 7.8 L (8.4-10.2) mg/dL Magnesium 1.8 (1.6-2.3) mg/dL Total Bilirubin 6.0 H (0.2-1.3) mg/dL AST 88 H (17-59) U/L ALT 73 H (4-49) U/L Alkaline Phosphatase 104 (38-126) U/L Ammonia (<30) umol/L Troponin I (0.000-0.034) ng/mL NT-Pro-B Natriuret Pep pg/mL Total Protein 7.2 (6.3-8.2) g/dL Albumin 2.4 L (3.5-5.0) g/dL Urine Color Urine Appearance (Clear) Urine pH (5.0-8.0) Ur Specific [place] (1.001-1.035) Urine Protein (Negative) Urine Glucose (UA) (Negative) Urine Ketones (Negative) Urine Blood (Negative) Urine Nitrite (Negative) Urine Bilirubin (Negative) Urine Urobilinogen (<2.0) mg/dL Ur Leukocyte Esterase (Negative) 07/13/21 07/13/21 07/13/21 Range/Units 17:11 17:11 17:11 WBC (3.8-10.6) k/uL RBC (4.30-5.90) m/uL Hgb (13.0-17.5) gm/dL Hct (39.0-53.0) % MCV (80.0-100.0) fL MCH (25.0-35.0) pg MCHC (31.0-37.0) g/dL RDW (11.5-15.5) % Plt Count (150-450) k/uL MPV Neutrophils % (Manual) % Lymphocytes % (Manual) % Monocytes % (Manual) % Eosinophils % (Manual) % Neutrophils # (Manual) (1.3-7.7) k/uL Lymphocytes # (Manual) (1.0-4.8) k/uL Monocytes # (Manual) (0-1.0) k/uL Eosinophils # (Manual) (0-0.7) k/uL Nucleated RBCs (0-0) /100 WBC Manual Slide Review Polychromasia Hypochromasia Poikilocytosis Anisocytosis Macrocytosis PT (9.0-12.0) sec INR (<1.2) APTT (22.0-30.0) sec D-Dimer (<0.60) mg/L FEU Sodium (137-145) mmol/L Potassium (3.5-5.1) mmol/L Chloride (98-107) mmol/L Carbon Dioxide (22-30) mmol/L Anion Gap mmol/L BUN (9-20) mg/dL Creatinine (0.66-1.25) mg/dL Est GFR (CKD-EPI)AfAm (>60 ml/min/1.73 sqM) Est GFR (CKD-EPI)NonAf (>60 ml/min/1.73 sqM) Glucose (74-99) mg/dL Plasma Lactic Acid Mason 1.6 (0.7-2.0) mmol/L Calcium (8.4-10.2) mg/dL Magnesium (1.6-2.3) mg/dL Total Bilirubin (0.2-1.3) mg/dL AST (17-59) U/L ALT (4-49) U/L Alkaline Phosphatase (38-126) U/L Ammonia <9 (<30) umol/L Troponin I <0.012 (0.000-0.034) ng/mL NT-Pro-B Natriuret Pep 860 pg/mL Total Protein (6.3-8.2) g/dL Albumin (3.5-5.0) g/dL Urine Color Urine Appearance (Clear) Urine pH (5.0-8.0) Ur Specific [place] (1.001-1.035) Urine Protein (Negative) Urine Glucose (UA) (Negative) Urine Ketones (Negative) Urine Blood (Negative) Urine Nitrite (Negative) Urine Bilirubin (Negative) Urine Urobilinogen (<2.0) mg/dL Ur Leukocyte Esterase (Negative) 07/13/21 Range/Units 17:11 WBC (3.8-10.6) k/uL RBC (4.30-5.90) m/uL Hgb (13.0-17.5) gm/dL Hct (39.0-53.0) % MCV (80.0-100.0) fL MCH (25.0-35.0) pg MCHC (31.0-37.0) g/dL RDW (11.5-15.5) % Plt Count (150-450) k/uL MPV Neutrophils % (Manual) % Lymphocytes % (Manual) % Monocytes % (Manual) % Eosinophils % (Manual) % Neutrophils # (Manual) (1.3-7.7) k/uL Lymphocytes # (Manual) (1.0-4.8) k/uL Monocytes # (Manual) (0-1.0) k/uL Eosinophils # (Manual) (0-0.7) k/uL Nucleated RBCs (0-0) /100 WBC Manual Slide Review Polychromasia Hypochromasia Poikilocytosis Anisocytosis Macrocytosis PT (9.0-12.0) sec INR (<1.2) APTT (22.0-30.0) sec D-Dimer (<0.60) mg/L FEU Sodium (137-145) mmol/L Potassium (3.5-5.1) mmol/L Chloride (98-107) mmol/L Carbon Dioxide (22-30) mmol/L Anion Gap mmol/L BUN (9-20) mg/dL Creatinine (0.66-1.25) mg/dL Est GFR (CKD-EPI)AfAm (>60 ml/min/1.73 sqM) Est GFR (CKD-EPI)NonAf (>60 ml/min/1.73 sqM) Glucose (74-99) mg/dL Plasma Lactic Acid Mason (0.7-2.0) mmol/L Calcium (8.4-10.2) mg/dL Magnesium (1.6-2.3) mg/dL Total Bilirubin (0.2-1.3) mg/dL AST (17-59) U/L ALT (4-49) U/L Alkaline Phosphatase (38-126) U/L Ammonia (<30) umol/L Troponin I (0.000-0.034) ng/mL NT-Pro-B Natriuret Pep pg/mL Total Protein (6.3-8.2) g/dL Albumin (3.5-5.0) g/dL Urine Color Yellow Urine Appearance Clear (Clear) Urine pH 6.0 (5.0-8.0) Ur Specific [place] 1.042 H (1.001-1.035) Urine Protein Negative (Negative) Urine Glucose (UA) Negative (Negative) Urine Ketones Negative (Negative) Urine Blood Negative (Negative) Urine Nitrite Negative (Negative) Urine Bilirubin 1+ H (Negative) Urine Urobilinogen 4.0 (<2.0) mg/dL Ur Leukocyte Esterase Negative (Negative) Disposition Clinical Impression: Hyponatremia, Alcoholic cirrhosis of liver, Coagulopathy, Thrombocytopenia Disposition: ADMITTED IP TO THIS [facility] Condition: Stable Is patient prescribed a controlled substance at d/c from ED?: No Time of Disposition: 19:07 Decision to Admit Reason: Admit from EC Decision Date: 07/13/21 Decision Time: 19:07
[2021-07-13 17:34] LABS: African American GFR (CKD) >90 (>60 ml/min/1.73 sqM); Anion Gap 5 mmol/L; Blood Urea Nitrogen 13 mg/dL (9-20); Carbon Dioxide 21 mmol/L (22-30); Chloride 104 mmol/L (98-107); Glucose 103 mg/dL (74-99); Potassium 4.2 mmol/L (3.5-5.1); Sodium 130 mmol/L (137-145)
[2021-07-13 17:35] LABS: ALT 73 U/L (4-49); AST 88 U/L (17-59); Albumin 2.4 g/dL (3.5-5.0); Alkaline Phosphatase 104 U/L (38-126); Calcium 7.8 mg/dL (8.4-10.2); Lactic Acid, Venous 1.6 mmol/L (0.7-2.0); Magnesium 1.8 mg/dL (1.6-2.3); Non-African American GFR(CKD) >90 (>60 ml/min/1.73 sqM); Total Protein 7.2 g/dL (6.3-8.2)
[2021-07-13 17:38] LABS: INR 1.6 (<1.2); Partial Thromboplastin Time 30.2 sec (22.0-30.0); Prothrombin Time 16.7 sec (9.0-12.0)
[2021-07-13 17:54] LABS: Anisocytosis Slight; HCT 28.1 % (39.0-53.0); Hypochromasia Moderate; MCH 38.4 pg (25.0-35.0); MCHC 32.8 g/dL (31.0-37.0); MCV 117.3 fL (80.0-100.0); Macrocytosis Marked; Mean Platelet Volume 8.1; Poikilocytosis Slight; RDW 17.3 % (11.5-15.5); WBC 3.7 k/uL (3.8-10.6)
[2021-07-13 17:58] LABS: HGB 9.2 gm/dL (13.0-17.5)
--- NOTE | 2021-07-13 18:20 | XR ---
EXAMINATION TYPE: XR chest 2V DATE OF EXAM: 07/13/2021 5:40 PM COMPARISON: 11/30/2019 TECHNIQUE: XR chest 2V Frontal and lateral views of the chest. CLINICAL INDICATION:Male, 61 years old with history of difficulty breathing; FINDINGS: Lungs/Pleura: There is no evidence of pleural effusion, focal consolidation, or pneumothorax. Pulmonary vascularity: Unremarkable. Heart/mediastinum: Cardiomediastinal silhouette is unremarkable. Musculoskeletal: No acute osseous pathology. IMPRESSION: No acute cardiopulmonary disease/process.
--- NOTE | 2021-07-13 18:41 | CT ---
EXAMINATION TYPE: CT chest angio for PE CT DLP: 595.1 mGycm, Automated exposure control for dose reduction was used. DATE OF EXAM: 07/13/2021 6:05 PM COMPARISON: Chest radiograph from same day. Multiple CTs of the chest with most recent on 11/23/2019 . CLINICAL INDICATION:Male, 61 years old with history of Shortness of breath. TECHNIQUE/CONTRAST: CTA scan of the thorax is performed with IV Contrast, patient injected with 100 mL of Isovue 370, pul monary embolism protocol. MIP images are created and reviewed. FINDINGS: Pulmonary Artery: There is no evidence for a filling defect within the pulmonary vasculature to sugge st acute pulmonary embolism. The pulmonary artery is of normal size. Lungs/Pleura: No evidence of focal consolidation, pleural effusion or pneumothorax. Scattered reticul ar opacities most pronounced in the right upper lobe periphery nonspecific. Airway: Large airways are patent. Heart: Within normal limits for size. Three-vessel coronary artery atherosclerosis. Vasculature: No evidence of aortic aneurysm. Mediastinum: No gross evidence of adenopathy. Musculoskeletal: No acute osseous abnormalities Soft Tissues: Unremarkable. Lower neck: No significant findings. Upper Abdomen: Moderate amount of ascites. There is a shrunken nodular contour to liver. IMPRESSION: 1. No evidence of pulmonary embolism. 2. Scattered reticular opacities most pronounced in the right upper lobe periphery could represent se quela prior infection. 3. Hepatic cirrhosis with ascites.
[2021-07-13 18:48] LABS: Lymphocytes # (M) 0.15 k/uL (1.0-4.8); Monocytes # (M) 0.19 k/uL (0-1.0); Neutrophils # (M) 3.07 k/uL (1.3-7.7); Neutrophils % (M) 83 %; Nucleated Red Blood Cells 0 /100 WBC (0-0); Total Cells Counted 100
[2021-07-13 18:49] LABS: Platelet Count 64 k/uL (150-450); Polychromasia Present
[2021-07-13] MEDS ORDERED: NALOXONE 0.4 MG/ML 1 ML VIAL IV PRN (19:07)
[2021-07-13 19:12] LABS: Appearance,Urine Clear (Clear); Bilirubin,Urine 1+ (Negative); Blood,Urine Negative (Negative); Color,Urine Yellow; Glucose,Urine (UA) Negative (Negative); Ketones,Urine Negative (Negative); Leukocyte Esterase,Urine Negative (Negative); Nitrite,Urine Negative (Negative); Protein,Urine Negative (Negative); Specific Gravity,Urine 1.042 (1.001-1.035)
[2021-07-13] MEDS ORDERED: SPIRONOLACTONE 25 MG TAB PO STA (19:17)
[2021-07-13] MEDS: FUROSEMIDE 10 MG/ML 4 ML VIAL IV SCH ×2 (20:29→21:41)
[2021-07-13] MEDS ORDERED: IPRATROPIUM-ALBUTEROL 3 ML NEB INHALATION PRN (23:12)
[2021-07-13] MEDS ORDERED: MIDODRINE 5 MG TAB PO SCH (23:15)
[2021-07-13] MEDS ORDERED: NON FORMULARY DRUG (Zinc Gluconate 50 MG Tab) PO SCH (23:15)
[2021-07-14] MEDS: traZODone HCL 100 MG TAB PO SCH ×2 (00:46→21:11)
[2021-07-14 09:09] LABS: African American GFR (CKD) 110.2 (60.0-200.0); BUN/Creat Ratio 14.5 Ratio (12.00-20.00); Blood Urea Nitrogen 11.6 mg/dL (9.0-27.0); Calcium 7.7 mg/dL (8.7-10.3); Non-African American GFR(CKD) 95.1 (60.0-200.0); Potassium 3.6 mmol/L (3.5-5.5)
[2021-07-14] MEDS: MIDODRINE 5 MG TAB PO SCH ×3 (09:17→17:48)
[2021-07-14] MEDS: SPIRONOLACTONE 25 MG TAB PO SCH (09:17)
[2021-07-14] MEDS: FUROSEMIDE 10 MG/ML 4 ML VIAL IV SCH ×2 (09:17→21:10)
[2021-07-14] MEDS: PANTOPRAZOLE 40 MG TABLET PO SCH (09:18)
[2021-07-14 09:24] LABS: Basophils # (A) 0.02 X 10*3/uL (0.00-0.10); Basophils % (A) 0.8 %; Eosinophils # (A) 0.24 X 10*3/uL (0.04-0.35); Eosinophils % (A) 9.8 %; HCT 22.6 % (39.6-50.0); HGB 7.4 g/dL (13.0-17.0); Immature Grans, Automated 0.4 %; Lymphocytes # (A) 0.41 X 10*3/uL (0.90-5.00); Lymphocytes % (A) 16.7 %; MCH 36.6 pg (27.0-32.0); MCHC 32.7 g/dL (32.0-37.0); MCV 111.9 fL (80.0-97.0); Monocytes # (A) 0.33 X 10*3/uL (0.20-1.00); Monocytes % (A) 13.5 %; NRBC Per 100 WBC 0 /100 WBCS (0.0-0.0); Neutrophils # (A) 1.44 X 10*3/uL (1.80-7.70); Neutrophils % (A) 58.8 %; Platelet Count 45 X 10*3/uL (140-440); RBC 2.02 X 10*6/uL (4.40-5.60); RDW 17.2 % (11.5-14.5); WBC 2.45 X 10*3/uL (4.50-10.00)
[2021-07-14 09:25] LABS: Immature Platelet Fraction 3.4 % (1.1-6.1)
--- NOTE | 2021-07-14 11:43 | P.HPIM ---
History of Present Illness H&P Date: 07/14/21 Chief Complaint: Alcoholic liver cirrhosis with anasarca. HISTORY OF PRESENT ILLNESS: This is a 61 year old male with a previous medical history significant for hypertension and hypertensive cardiovascular disease, hyperlipidemia, history of pancreatitis in the past along with prior history of sepsis due to cellulitis about 2 year ago, history of chronic alcoholic hepatitis with alcoholic liver cirrhosis with elevated coags liver function test as well as from cytopenia without evidence of ascites in the past, patient was recently hospitalized on 06/18/2021 after he was admitted to the hospital with generalized abdominal distention as well as increase fluid in both lower extremities and inability to ambulate due to significant edema in both lower extremities, patient was admitted for worsening liver cirrhosis and he was treated with diuretics initially including Lasix and spironolactone however the patient became hypotensive and he was taken off diuretics including Lasix and spironolactone and he was taken off his antihypertensive medication as well, patient was seen in consultation by gastroenterology was recommended to continue with low-salt high-protein diet and follow-up with GI as an outpatient, patient was sent to [facility] for physical therapy rehabilitation he was just discharged about a few days ago after his days at the rehabilitation are ended and the patient came to my office yesterday with increased fatigue and tiredness and inability to perform activities of daily living, significant edema both lower extremities despite taking Lasix 20 mg once every day as well as spironolactone 25 mg once every day, patient has been sober without any alcohol ingestion since he was at [facility] patient was hard to ambulate he was taken outside the office by wheelchair and the patient wanted to be admitted to an extended care facility for chronic care as he is not able to carry on his activities of daily living, his son was with him at the bedside and he stated that he is not able to the care of his dad because the patient is not able to perform activities of daily living patient had significant edema both lower extremities, significant abdominal distention without evidence of ascites patient was referred to the ER for evaluation he was started on Lasix 40 mg IV push every 12 hours along with spironolactone 50 mg orally once every day, patient had an elevated d-dimer underwent CTA of the chest that was negative for pulmonary embolism, patient was admitted to the hospital for evaluation by physical therapy and hopefully this position to extended care facility for chronic care. REVIEW OF SYSTEMS: Constitutional: No documented fever, no chills, no night sweats. No weight change. positive for weakness, positive for fatigue or lethargy. No daytime sleepiness. HEENT: No headache. No blurred vision or double vision, no loss of vision. No loss of Hearing, no ringing in the ears, no dizziness. No nasal drainage or congestion. No epistaxis. No sore throat. Lungs: No shortness of breath, no cough, no sputum production. No wheezing. Reports dyspnea with activity. Cardiovascular: No chest pain, positive for lower extremity edema. No palpitations. No paroxysmal nocturnal dyspnea. No orthopnea. No lightheadedness or dizziness. No syncopal episodes. Abdominal: Reports abdominal pain. No nausea, vomiting. positive for diarrhea. No constipation. No bloody or tarry stools reports loss of appetite. Genitourinary: No dysuria, increased frequency, urgency. No urinary retention. Musculoskeletal: No myalgias. positive for muscle weakness, no gait dysfunction, no frequent falls. No back pain. No neck pain. Integumentary: No wounds, no lesions. No rash or pruritus. No unusual bruising. No change in hair or nails. Neurologic: No aphasia. No facial droop. No change in mentation. No head injury. No headache. No paralysis. No paresthesia. Psychiatric: No depression. No anxiety. No mood swings. Endocrine: No abnormal blood sugars. No weight change. PAST MEDICAL HISTORY: Hypertension and hypertensive cardiovascular disease Hyperlipidemia. History of pancreatitis Chronic alcoholic hepatitis Liver cirrhosis. GERD. osteoarthritis. PAST SURGICAL HISTORY: No surgery. SOCIAL HISTORY: Patient is a lifelong nonsmoker, he drinks about 3-4 beers on a daily basis, was counseled about alcohol cessation many many times in the past unfortunately he continues to drink despite his alcoholic liver cirrhosis. He denies any marijuana use or abuse he denies any drug use or abuse. FAMILY HISTORY: Mother at age of 91 from old age and she had a history of hypertension, father at age 65 from CVA. Patient has 2 sons no major medical problems, and one daughter no major medical problems. PHYSICAL EXAMINATION: General: 61-year-old male laying down in bed in no apparent distress HEENT: Head is atraumatic, normocephalic, pupils were equal round reactive to light and recommendation, extraocular muscle movement were intact, sclera are deeply icteric, conjunctivae were pale, mucous membranes of the mouth are somewhat dry. Neck: Supple, no JVP, normal carotid upstroke bilaterally, no lymphadenopathy. Chest: Decreased breath sounds at the bases, few rhonchi, no expiratory wheezes, no chest wall tenderness, no intercostal retractions. Heart: First heart sound is normal, second heart sounds normal there is BLANCA 2/6 located at the left sternal border Abdomen: Soft, distended moderate ascites, nonspecific tenderness, positive bowel sounds. Extremities: There is +3 edema no calf tenderness DP +2 bilaterally. Neurologic examination: Patient is awake alert and oriented X 3, cranial nerves II-12 appear grossly intact, muscle power were 5 out of 5 in upper extremities and 5 out of 5 in bilateral lower extremities, deep tendon reflexes normal b ilaterally. ASSESSMENT AND PLAN: 1. Acute on chronic alcohol hepatitis with alcoholic liver cirrhosis associated with decompensated Ascites . Start the patient on low-salt diet, high-protein diet, start the patient on Lasix 40 mg IV push every 12 hours, start the patient on Spiriva and rectal 50 mg orally once every day, continue with monitor the patient input and output and daily weight. 2. Moderate amount of ascites. Less and patient does not have significant amount of ascites in abdomen soft he never had any paracentesis. We'll continue with diuretics for now and monitor the patient's symptoms very closely. 3. Hypertension and hypertensive cardiovascular disease. Currently nor motensive patient has been off his antihypertensive medications. 4. GERD. Continue patient on Protonix 40 mg orally once every day. 5. DVT prophylaxis. Bilateral knee-high TAMI hose. 6. Pancytopenia. likely related to liver cirrhosis, continue to monitor the patient CBC over the next 24 hours, we'll transfuse for hemoglobin less than 7. 7. Hyponatremia likely related to hypervolemia. Start the patient on Lasix 40 mg IV push every 12 hours, start the patient on spironolactone 50 mg orally once every day, monitor the patient CMP over the next 24 hours. 8. Medical debility due to underlying liver cirrhosis physical therapy evaluation. 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 10. Admitted to inpatient. Estimate a length of stay 2 midnights. 11. Patient is full code. Past Medical History Past Medical History: Hypertension, Liver Disease, Pneumonia Additional Past Medical History / Comment(s): Liver cirrhosis, splenomegaly, pancreatitis-pt states pancreatitis was side effect from Lisinopril, pt denies hx of alcoholism/drinking heavily, cellulitis with sepsis History of Any Multi-Drug Resistant Organisms: None Reported Past Surgical History: No Surgical Hx Reported Additional Past Surgical History / Comment(s): Pt has never had surgery. Past Anesthesia/Blood Transfusion Reactions: Unable to Obtain Additional Past Anesthesia/Blood Transfusion Reaction / Comment(s): Pt has never had anesthesia Past Psychological History: No Psychological Hx Reported Smoking Status: Never smoker Past Alcohol Use History: None Reported Past Drug Use History: None Reported - Past Family History Mother Family Medical History: Hypertension Additional Family Medical History / Comment(s): Mother lived to be 91 yrs old. Father Family Medical History: CVA/TIA Additional Family Medical History / Comment(s): Father of a CVA at the age of 65yrs. Son(s) Family Medical History: No Reported History Daughter(s) Family Medical History: No Reported History Medications and Allergies Home Medications Medication Instructions Recorded Confirmed Type Albuterol Sulfate [Proair Hfa] 2 puff INHALATION RT-Q6H PRN 06/18/21 07/13/21 History Zinc Gluconate [Zinc] 50 mg PO HS 06/18/21 07/13/21 History traZODone HCL [Desyrel] 100 mg PO HS 06/18/21 07/13/21 History Ipratropium-Albuterol Nebulize 3 ml INHALATION RT-QID PRN ml 06/22/21 07/13/21 Rx [Duoneb 0.5 mg-3 mg/3 ml Soln] Pantoprazole [Protonix] 40 mg PO AC-[id number] tab 06/22/21 07/13/21 Rx Furosemide [Lasix] 20 mg PO DAILY 07/13/21 07/13/21 History Midodrine [ProAmatine] 5 mg PO Q8H 07/13/21 07/13/21 History Spironolactone 25 mg PO DAILY 07/13/21 07/13/21 History Allergies Allergy/AdvReac Type Severity Reaction Status Date / Time lisinopril AdvReac causes Verified 07/13/21 17:28 pancreatitis Physical Exam Vitals: Vital Signs Temp Pulse Pulse Resp BP BP Pulse Ox 07/14/21 07:30 98.5 F 71 16 111/66 97 07/14/21 01:37 98.6 F 78 18 115/64 97 07/13/21 20:28 98.2 F 98 20 123/76 98 07/13/21 18:44 91 18 121/73 100 07/13/21 16:36 95 18 116/79 99 07/13/21 15:00 97.4 F L 106 H 20 151/78 97 Intake and Output 07/13/21 07/14/21 07/14/21 22:59 06:59 14:59 Output Total 700 Balance -700 Output: Urine 700 Other: Weight 124.284 kg Results CBC & Chem 7: 07/14/21 06:08 07/14/21 06:02 Labs: Abnormal Lab Results - Last 24 Hours (Table) 07/13/21 07/13/21 07/13/21 Range/Units 17:11 17:11 17:11 WBC 3.7 L (3.8-10.6) k/uL RBC 2.40 L (4.30-5.90) m/uL Hgb 9.2 L D (13.0-17.5) gm/dL Hct 28.1 L (39.0-53.0) % MCV 117.3 H (80.0-100.0) fL MCH 38.4 H (25.0-35.0) pg RDW 17.3 H (11.5-15.5) % Plt Count 64 L (150-450) k/uL Neutrophils # (1.80-7.70) X 10*3/uL Lymphocytes # (0.90-5.00) X 10*3/uL Lymphocytes # (Manual) 0.15 L (1.0-4.8) k/uL Macrocytosis Marked A PT 16.7 H (9.0-12.0) sec INR 1.6 H (<1.2) APTT 30.2 H (22.0-30.0) sec D-Dimer 2.06 H (<0.60) mg/L FEU Sodium 130 L (137-145) mmol/L Carbon Dioxide 21 L (22-30) mmol/L Glucose 103 H (74-99) mg/dL Calcium 7.8 L (8.4-10.2) mg/dL Total Bilirubin 6.0 H (0.2-1.3) mg/dL AST 88 H (17-59) U/L ALT 73 H (4-49) U/L Albumin 2.4 L (3.5-5.0) g/dL Ur Specific [place] (1.001-1.035) Urine Bilirubin (Negative) 07/13/21 07/14/21 07/14/21 Range/Units 17:11 06:02 06:08 WBC 2.45 L (3.8-10.6) k/uL RBC 2.02 L (4.30-5.90) m/uL Hgb 7.4 L (13.0-17.5) gm/dL Hct 22.6 L (39.0-53.0) % MCV 111.9 H (80.0-100.0) fL MCH 36.6 H (25.0-35.0) pg RDW 17.2 H (11.5-15.5) % Plt Count 45 L (150-450) k/uL Neutrophils # 1.44 L (1.80-7.70) X 10*3/uL Lymphocytes # 0.41 L (0.90-5.00) X 10*3/uL Lymphocytes # (Manual) (1.0-4.8) k/uL Macrocytosis PT (9.0-12.0) sec INR (<1.2) APTT (22.0-30.0) sec D-Dimer (<0.60) mg/L FEU Sodium 133 L (137-145) mmol/L Carbon Dioxide 19.0 L (22-30) mmol/L Glucose (74-99) mg/dL Calcium 7.7 L (8.4-10.2) mg/dL Total Bilirubin (0.2-1.3) mg/dL AST (17-59) U/L ALT (4-49) U/L Albumin (3.5-5.0) g/dL Ur Specific [place] 1.042 H (1.001-1.035) Urine Bilirubin 1+ H (Negative) Thrombosis Risk Factor Assmnt - Choose All That Apply Any of the Below Risk Factors Present?: Yes Each Factor Represents 1 point: Swollen legs (current) Other Risk Factors: Yes Each Risk Factor Represents 2 Points: Age 61-74 years Thrombosis Risk Factor Assessment Total Risk Factor Score: 3 Thrombosis Risk Factor Assessment Level: Moderate Risk
[2021-07-15 07:09] LABS: INR 1.6 (<1.2); Partial Thromboplastin Time 31.7 sec (22.0-30.0); Prothrombin Time 16.8 sec (9.0-12.0)
[2021-07-15] MEDS: FOLIC ACID 1 MG TAB PO SCH (08:32)
[2021-07-15] MEDS: PANTOPRAZOLE 40 MG TABLET PO SCH (08:32)
[2021-07-15] MEDS: SPIRONOLACTONE 25 MG TAB PO SCH (08:32)
[2021-07-15] MEDS: CYANOCOBALAMIN 500 MCG TAB PO SCH (08:32)
[2021-07-15] MEDS: MIDODRINE 5 MG TAB PO SCH ×3 (08:33→17:30)
--- NOTE | 2021-07-15 08:49 | P.PN ---
Subjective Progress Note Date: 07/15/21 HISTORY OF PRESENT ILLNESS: This is a 61 year old male with a previous medical history significant for hypertension and hypertensive cardiovascular disease, hyperlipidemia, history of pancreatitis in the past along with prior history of sepsis due to cellulitis about 2 year ago, history of chronic alcoholic hepatitis with alcoholic liver cirrhosis with elevated coags liver function test as well as from cytopenia without evidence of ascites in the past, patient was recently hospitalized on 06/18/2021 after he was admitted to the hospital with generalized abdominal distention as well as increase fluid in both lower extremities and inability to ambulate due to significant edema in both lower extremities, patient was admitted for worsening liver cirrhosis and he was treated with diuretics initially including Lasix and spironolactone however the patient became hypotensive and he was taken off diuretics including Lasix and spironolactone and he was taken off his antihypertensive medication as well, patient was seen in consultation by gastroenterology was recommended to continue with low-salt high-protein diet and follow-up with GI as an outpatient, patient was sent to [facility] for physical therapy rehabilitation he was just discharged about a few days ago after his days at the rehabilitation are ended and the patient came to my office yesterday with increased fatigue and tiredness and inability to perform activities of daily living, significant edema both lower extremities despite taking Lasix 20 mg once every day as well as spironolactone 25 mg once every day, patient has been sober without any alcohol ingestion since he was at [facility] patient was hard to ambulate he was taken outside the office by wheelchair and the patient wanted to be admitted to an extended care facility for chronic care as he is not able to carry on his activities of daily living, his son was with him at the bedside and he stated that he is not able to the care of his dad because the patient is not able to perform activities of daily living patient had significant edema both lower extremities, significant abdominal distention without evidence of ascites patient was referred to the ER for evaluation he was started on Lasix 40 mg IV push every 12 hours along with spironolactone 50 mg orally once every day, patient had an elevated d-dimer underwent CTA of the chest that was negative for pulmonary embolism, patient was admitted to the hospital for evaluation by [facility] and hopefully this position to extended care facility for chronic care. 07/15: Patient is laying down in bed he appears to be a bit down today, he continues to urinate a lot with the Lasix, we will continue to monitor the patient awake twice, magnesium, potassium, patient will be started on stool softeners Senokot 2 tablets at bedtime, because of constipation, patient declined lactulose as this time even though it may be a better choice due to his liver cirrhosis and possibility of hepatic encephalopathy due to ammonia buildup. REVIEW OF SYSTEMS: Constitutional: No documented fever, no chills, no night sweats. No weight change. positive for weakness, positive for fatigue or lethargy. No daytime sleepiness. HEENT: No headache. No blurred vision or double vision, no loss of vision. No loss of Hearing, no ringing in the ears, no dizziness. No nasal drainage or congestion. No epistaxis. No sore throat. Lungs: No shortness of breath, no cough, no sputum production. No wheezing. Reports dyspnea with activity. Cardiovascular: No chest pain, positive for lower extremity edema. No palpitations. No paroxysmal nocturnal dyspnea. No orthopnea. No lightheadedness or dizziness. No syncopal episodes. Abdominal: Reports abdominal pain. No nausea, vomiting. positive for diarrhea. No constipation. No bloody or tarry stools reports loss of appetite. Genitourinary: No dysuria, increased frequency, urgency. No urinary retention. Musculoskeletal: No myalgias. positive for muscle weakness, no gait dysfunction, no frequent falls. No back pain. No neck pain. Integumentary: No wounds, no lesions. No rash or pruritus. No unusual bruising. No change in hair or nails. Neurologic: No aphasia. No facial droop. No change in mentation. No head injury. No headache. No paralysis. No paresthesia. Psychiatric: No depression. No anxiety. No mood swings. Endocrine: No abnormal blood sugars. No weight change. PHYSICAL EXAMINATION: General: 61-year-old male laying down in bed in no apparent distress HEENT: Head is atraumatic, normocephalic, pupils were equal round reactive to light and recommendation, extraocular muscle movement were intact, sclera are deeply icteric, conjunctivae were pale, mucous membranes of the mouth are somewhat dry. Neck: Supple, no JVP, normal carotid upstroke bilaterally, no lymphadenopathy. Chest: Decreased breath sounds at the bases, few rhonchi, no expiratory wheezes, no chest wall tenderness, no intercostal retractions. Heart: First heart sound is normal, second heart sounds normal there is BLANCA 2/6 located at the left sternal border Abdomen: Soft, distended moderate ascites, nonspecific tenderness, positive bowel sounds. Extremities: There is +3 edema no calf tenderness DP +2 bilaterally. Neurologic examination: Patient is awake alert and oriented X 3, cranial nerves II-12 appear grossly intact, muscle power were 5 out of 5 in upper extremities and 5 out of 5 in bilateral lower extremities, deep tendon reflexes normal bilaterally. ASSESSMENT AND PLAN: 1. Acute on chronic alcohol hepatitis with alcoholic liver cirrhosis associated with decompensated Ascites . continue patient on low-salt diet, high-protein diet, start the patient on Lasix 40 mg IV push every 12 hours, start the patient on Spirinolactone 50 mg orally once every day, continue with monitor the patient input and output and daily weight. 2. Moderate amount of ascites. Less and patient does not have significant amount of ascites in abdomen soft he never had any paracentesis. We'll continue with diuretics for now and monitor the patient's symptoms very closely. 3. Hypertension and hypertensive cardiovascular disease. Currently normotensive patient has been off his antihypertensive medications. 4. GERD. Continue patient on Protonix 40 mg orally once every day. 5. DVT prophylaxis. Bilateral knee-high TAMI hose. 6. Pancytopenia. likely related to liver cirrhosis, continue to monitor the patient CBC over the next 24 hours, we'll transfuse for hemoglobin less than 7. 7. Hyponatremia likely related to hypervolemia. continue Lasix 40 mg IV push every 12 hours, start the patient on spironolactone 50 mg orally once every day, monitor the patient CMP over the next 24 hours. 8. Medical debility due to underlying liver cirrhosis physical therapy evaluation. 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 Objective - Vital Signs Vital signs: Vital Signs Temp 98.5 F 07/15/21 08:00 Pulse 92 07/15/21 08:00 Resp 16 07/15/21 08:00 BP 129/70 07/15/21 08:00 Pulse Ox 94 L 07/15/21 08:00 Intake & Output 07/14/21 07/15/21 07/15/21 18:59 06:59 18:59 Output Total 650 Balance -650 Output: Urine 650 Other: # Voids 3 4 # Bowel Movements 1 - Labs CBC & Chem 7: 07/14/21 06:08 07/14/21 06:02 Labs: Abnormal Lab Results - Last 24 Hours (Table) 07/14/21 07/14/21 07/15/21 Range/Units 06:02 06:08 06:28 WBC 2.45 L (4.50-10.00) X 10*3/uL RBC 2.02 L (4.40-5.60) X 10*6/uL Hgb 7.4 L (13.0-17.0) g/dL Hct 22.6 L (39.6-50.0) % MCV 111.9 H (80.0-97.0) fL MCH 36.6 H (27.0-32.0) pg RDW 17.2 H (11.5-14.5) % Plt Count 45 L (140-440) X 10*3/uL Neutrophils # 1.44 L (1.80-7.70) X 10*3/uL Lymphocytes # 0.41 L (0.90-5.00) X 10*3/uL PT 16.8 H (9.0-12.0) sec INR 1.6 H (<1.2) APTT 31.7 H (22.0-30.0) sec Sodium 133 L (135-145) mmol/L Carbon Dioxide 19.0 L (20.0-27.5) mmol/L Calcium 7.7 L (8.7-10.3) mg/dL Ammonia (<30) umol/L 07/15/21 Range/Units 06:28 WBC (4.50-10.00) X 10*3/uL RBC (4.40-5.60) X 10*6/uL Hgb (13.0-17.0) g/dL Hct (39.6-50.0) % MCV (80.0-97.0) fL MCH (27.0-32.0) pg RDW (11.5-14.5) % Plt Count (140-440) X 10*3/uL Neutrophils # (1.80-7.70) X 10*3/uL Lymphocytes # (0.90-5.00) X 10*3/uL PT (9.0-12.0) sec INR (<1.2) APTT (22.0-30.0) sec Sodium (135-145) mmol/L Carbon Dioxide (20.0-27.5) mmol/L Calcium (8.7-10.3) mg/dL Ammonia 46 H (<30) umol/L
[2021-07-15] MEDS ORDERED: IRON POLYSACCHARIDES COMPLEX 150 MG CAP PO SCH (09:00)
[2021-07-15] MEDS: FUROSEMIDE 10 MG/ML 4 ML VIAL IV SCH ×2 (09:33→21:03)
[2021-07-15] MEDS: SENNOSIDES-DOCUSATE SODIUM 1 EACH TAB PO SCH ×2 (09:33→21:03)
[2021-07-15 12:24] LABS: African American GFR (CKD) 110.9 (60.0-200.0); Albumin 2.2 g/dL (3.8-4.9); Albumin/Globulin Ratio 0.58 (1.60-3.17); Anion Gap 8.7 mmol/L (10.00-18.00); BUN/Creat Ratio 13.2 Ratio (12.00-20.00); Blood Urea Nitrogen 10.4 mg/dL (9.0-27.0); Calcium 7.8 mg/dL (8.7-10.3); Carbon Dioxide 22.3 mmol/L (20.0-27.5); Globulin 3.7 g/dL (1.6-3.3); Non-African American GFR(CKD) 95.7 (60.0-200.0); Total Bilirubin 5.2 mg/dL (0.30-1.20); Total Protein 5.9 g/dL (6.2-8.2)
[2021-07-15 12:38] LABS: Basophils # (A) 0.02 X 10*3/uL (0.00-0.10); Basophils % (A) 0.8 %; Eosinophils # (A) 0.26 X 10*3/uL (0.04-0.35); Eosinophils % (A) 10.3 %; HCT 24.3 % (39.6-50.0); HGB 7.9 g/dL (13.0-17.0); Immature Grans, Automated 0 %; Immature Platelet Fraction 2.9 % (1.1-6.1); Lymphocytes # (A) 0.43 X 10*3/uL (0.90-5.00); MCH 36.6 pg (27.0-32.0); MCHC 32.5 g/dL (32.0-37.0); MCV 112.5 fL (80.0-97.0); Mean Platelet Volume 11.3 fL (9.5-12.2); Monocytes # (A) 0.32 X 10*3/uL (0.20-1.00); Monocytes % (A) 12.6 %; NRBC Per 100 WBC 0 /100 WBCS (0.0-0.0); Neutrophils % (A) 59.3 %; Platelet Count 50 X 10*3/uL (140-440); RBC 2.16 X 10*6/uL (4.40-5.60); RDW 16.9 % (11.5-14.5); WBC 2.53 X 10*3/uL (4.50-10.00)
[2021-07-15] MEDS: traZODone HCL 100 MG TAB PO SCH (21:03)
[2021-07-16] MEDS: CYANOCOBALAMIN 500 MCG TAB PO SCH (07:22)
[2021-07-16] MEDS: FOLIC ACID 1 MG TAB PO SCH (07:23)
[2021-07-16] MEDS: SPIRONOLACTONE 25 MG TAB PO SCH ×2 (07:23→20:18)
[2021-07-16] MEDS: MIDODRINE 5 MG TAB PO SCH ×3 (07:23→17:09)
[2021-07-16] MEDS: PANTOPRAZOLE 40 MG TABLET PO SCH (07:23)
[2021-07-16] MEDS: SENNOSIDES-DOCUSATE SODIUM 1 EACH TAB PO SCH ×2 (07:23→20:18)
[2021-07-16] MEDS: FUROSEMIDE 10 MG/ML 4 ML VIAL IV SCH ×2 (09:02→20:18)
[2021-07-16] MEDS: IRON POLYSACCHARIDES COMPLEX 150 MG CAP PO SCH (12:16)
[2021-07-16 12:41] LABS: African American GFR (CKD) >90 (>60 ml/min/1.73 sqM); Anion Gap 6 mmol/L; Blood Urea Nitrogen 10 mg/dL (9-20); Calcium 7.4 mg/dL (8.4-10.2); Carbon Dioxide 29 mmol/L (22-30); Chloride 98 mmol/L (98-107); Glucose 115 mg/dL (74-99); Non-African American GFR(CKD) >90 (>60 ml/min/1.73 sqM); Sodium 133 mmol/L (137-145)
[2021-07-16] MEDS ORDERED: POTASSIUM CHLORIDE ER 20 MEQ TAB.ER PO STA ×3 (13:56→19:05)
--- NOTE | 2021-07-16 14:00 | P.PN ---
Subjective Progress Note Date: 07/16/21 HISTORY OF PRESENT ILLNESS: This is a 61 year old male with a previous medical history significant for hypertension and hypertensive cardiovascular disease, hyperlipidemia, history of pancreatitis in the past along with prior history of sepsis due to cellulitis about 2 year ago, history of chronic alcoholic hepatitis with alcoholic liver cirrhosis with elevated coags liver function test as well as from cytopenia without evidence of ascites in the past, patient was recently hospitalized on 06/18/2021 after he was admitted to the hospital with generalized abdominal distention as well as increase fluid in both lower extremities and inability to ambulate due to significant edema in both lower extremities, patient was admitted for worsening liver cirrhosis and he was treated with diuretics initially including Lasix and spironolactone however the patient became hypotensive and he was taken off diuretics including Lasix and spironolactone and he was taken off his antihypertensive medication as well, patient was seen in consultation by gastroenterology was recommended to continue with low-salt high-protein diet and follow-up with GI as an outpatient, patient was sent to [facility] for physical therapy rehabilitation he was just discharged about a few days ago after his days at the rehabilitation are ended and the patient came to my office yesterday with increased fatigue and tiredness and inability to perform activities of daily living, significant edema both lower extremities despite taking Lasix 20 mg once every day as well as spironolactone 25 mg once every day, patient has been sober without any alcohol ingestion since he was at [facility] patient was hard to ambulate he was taken outside the office by wheelchair and the patient wanted to be admitted to an extended care facility for chronic care as he is not able to carry on his activities of daily living, his son was with him at the bedside and he stated that he is not able to the care of his dad because the patient is not able to perform activities of daily living patient had significant edema both lower extremities, significant abdominal distention without evidence of ascites patient was referred to the ER for evaluation he was started on Lasix 40 mg IV push every 12 hours along with spironolactone 50 mg orally once every day, patient had an elevated d-dimer underwent CTA of the chest that was negative for pulmonary embolism, patient was admitted to the hospital for evaluation by [facility] and hopefully this position to extended care facility for chronic care. 07/15: Patient is laying down in bed he appears to be a bit down today, he continues to urinate a lot with the Lasix, we will continue to monitor the patient awake twice, magnesium, potassium, patient will be started on stool softeners Senokot 2 tablets at bedtime, because of constipation, patient declined lactulose as this time even though it may be a better choice due to his liver cirrhosis and possibility of hepatic encephalopathy due to ammonia buildup. 07/16: Patient is diuresing very well but continues to have significant edema. We'll continue Lasix at 40 mg IV twice daily and increase Aldactone to 50 mg twice daily. Patient has been afebrile, heart rate 78, blood pressure 97/58, pulse ox 95% on room air Blood work today reveals sodium 133, potassium 3.0 and will be replaced. BUN 10 and creatinine 0.71. REVIEW OF SYSTEMS: Constitutional: No documented fever, no chills, no night sweats. No weight change. positive for weakness, positive for fatigue or lethargy. No daytime sleepiness. HEENT: No headache. No blurred vision or double vision, no loss of vision. No loss of Hearing, no ringing in the ears, no dizziness. No nasal drainage or congestion. No epistaxis. No sore throat. Lungs: No shortness of breath, no cough, no sputum production. No wheezing. Reports dyspnea with activity. Cardiovascular: No chest pain, positive for lower extremity edema. No palpitations. No paroxysmal nocturnal dyspnea. No orthopnea. No lightheadedness or dizziness. No syncopal episodes. Abdominal: Reports abdominal pain. No nausea, vomiting. positive for diarrhea. No constipation. No bloody or tarry stools reports loss of appetite. Genitourinary: No dysuria, increased frequency, urgency. No urinary retention. Musculoskeletal: No myalgias. positive for muscle weakness, no gait dysfunction, no frequent falls. No back pain. No neck pain. Integumentary: No wounds, no lesions. No rash or pruritus. No unusual bruising. No change in hair or nails. Neurologic: No aphasia. No facial droop. No change in mentation. No head injury. No headache. No paralysis. No paresthesia. Psychiatric: No depression. No anxiety. No mood swings. Endocrine: No abnormal blood sugars. No weight change. PHYSICAL EXAMINATION: General: 61-year-old male laying down in bed in no apparent distress HEENT: Head is atraumatic, normocephalic, pupils were equal round reactive to li ght and recommendation, extraocular muscle movement were intact, sclera are deeply icteric, conjunctivae were pale, mucous membranes of the mouth are somewhat dry. Neck: Supple, no JVP, normal carotid upstroke bilaterally, no lymphadenopathy. Chest: Decreased breath sounds at the bases, few rhonchi, no expiratory wheezes, no chest wall tenderness, no intercostal retractions. Heart: First heart sound is normal, second heart sounds normal there is BLANCA 2/6 located at the left sternal border Abdomen: Soft, distended moderate ascites, nonspecific tenderness, positive bowel sounds. Extremities: There is +2-3 edema no calf tenderness DP +2 bilaterally. Jagdeep wraps in place to the bilateral lower extremities. Neurologic examination: Patient is awake alert and oriented X 3, cranial nerves II-12 appear grossly intact, muscle power were 5 out of 5 in upper extremities and 5 out of 5 in bilateral lower extremities, deep tendon reflexes normal bilaterally. ASSESSMENT AND PLAN: 1. Acute on chronic alcohol hepatitis with alcoholic liver cirrhosis associated with decompensated Ascites . continue patient on low-salt diet, high-protein diet, start the patient on Lasix 40 mg IV push every 12 hours, start the patient on Spirinolactone 50 mg orally twice daily, continue with monitor the patient input and output and daily weight. 2. Moderate amount of ascites. Less and patient does not have significant amount of ascites in abdomen soft he never had any paracentesis. We'll continue with diuretics for now and monitor the patient's symptoms very closely. 3. Hypertension and hypertensive cardiovascular disease. Currently normotensive patient has been off his antihypertensive medications. 4. GERD. Continue patient on Protonix 40 mg orally once every day. 5. DVT prophylaxis. Bilateral knee-high TAMI hose. 6. Pancytopenia. likely related to liver cirrhosis, continue to monitor the patient CBC over the next 24 hours, we'll transfuse for hemoglobin less than 7. 7. Hyponatremia likely related to hypervolemia. continue Lasix 40 mg IV push every 12 hours, start the patient on spironolactone 50 mg orally once every day, monitor the patient CMP over the next 24 hours. 8. Medical debility due to underlying liver cirrhosis physical therapy evaluation. 9. Hypotension. Patient is on midodrine 5 mg 3 times daily. plate worker consultation for discharge planning patient is asking to be admitted to a shelter for chronic care. DISCHARGE PLAN Friday Impression and plan of care have been directed as dictated by the signing physician. Sherita Nicole nurse practitioner acting as scribe for signing physician. Objective - Vital Signs Vital signs: Vital Signs Temp 98.6 F 07/16/21 07:36 Pulse 78 07/16/21 07:36 Resp 18 07/16/21 07:36 BP 97/58 07/16/21 07:36 Pulse Ox 95 07/16/21 07:36 Intake & Output 07/15/21 07/16/21 07/16/21 18:59 06:59 18:59 Output Total 1300 Balance -1300 Output: Urine 1300 Other: # Voids 3 # Bowel Movements 1 - Labs CBC & Chem 7: 07/15/21 06:28 07/16/21 12:12 Labs: Abnormal Lab Results - Last 24 Hours (Table) 07/15/21 07/15/21 Range/Units 06:28 06:28 WBC 2.53 L (4.50-10.00) X 10*3/uL RBC 2.16 L (4.40-5.60) X 10*6/uL Hgb 7.9 L (13.0-17.0) g/dL Hct 24.3 L (39.6-50.0) % MCV 112.5 H (80.0-97.0) fL MCH 36.6 H (27.0-32.0) pg RDW 16.9 H (11.5-14.5) % Plt Count 50 L (140-440) X 10*3/uL Neutrophils # 1.50 L (1.80-7.70) X 10*3/uL Lymphocytes # 0.43 L (0.90-5.00) X 10*3/uL Sodium 132 L (135-145) mmol/L Potassium 3.0 L (3.5-5.5) mmol/L Anion Gap 8.70 L (10.00-18.00) mmol/L Calcium 7.8 L (8.7-10.3) mg/dL Total Bilirubin 5.20 H (0.30-1.20) mg/dL AST 64 H (14-35) U/L ALT 61 H (10-49) U/L Total Protein 5.9 L (6.2-8.2) g/dL Albumin 2.2 L (3.8-4.9) g/dL Globulin 3.7 H (1.6-3.3) g/dL Albumin/Globulin Ratio 0.58 L (1.60-3.17) g/dL
[2021-07-16] MEDS: traZODone HCL 100 MG TAB PO SCH (20:18)
[2021-07-16] MEDS: SERTRALINE 50 MG TAB PO SCH (20:19)
[2021-07-17] MEDS: MIDODRINE 5 MG TAB PO SCH ×3 (06:53→15:44)
[2021-07-17] MEDS: FOLIC ACID 1 MG TAB PO SCH (06:53)
[2021-07-17] MEDS: SPIRONOLACTONE 25 MG TAB PO SCH ×2 (06:53→22:17)
[2021-07-17] MEDS: CYANOCOBALAMIN 500 MCG TAB PO SCH (06:53)
[2021-07-17] MEDS: SENNOSIDES-DOCUSATE SODIUM 1 EACH TAB PO SCH ×2 (06:53→22:18)
[2021-07-17] MEDS: PANTOPRAZOLE 40 MG TABLET PO SCH (06:54)
[2021-07-17] MEDS: FUROSEMIDE 10 MG/ML 4 ML VIAL IV SCH (09:26)
[2021-07-17 10:06] LABS: African American GFR (CKD) 116.4 (60.0-200.0); Albumin 2.1 g/dL (3.8-4.9); Albumin/Globulin Ratio 0.6 (1.60-3.17); Blood Urea Nitrogen 9.8 mg/dL (9.0-27.0); Calcium 7.6 mg/dL (8.7-10.3); Globulin 3.5 g/dL (1.6-3.3); Non-African American GFR(CKD) 100.4 (60.0-200.0); Potassium 3.3 mmol/L (3.5-5.5); Total Bilirubin 4.6 mg/dL (0.30-1.20); Total Protein 5.6 g/dL (6.2-8.2)
[2021-07-17] MEDS ORDERED: Potassium Replacement Protocol 1 EACH MISC MISCELLANE PRN (10:11)
[2021-07-17 10:34] LABS: HCT 24.4 % (39.6-50.0); HGB 7.8 g/dL (13.0-17.0); MCH 35.8 pg (27.0-32.0); MCV 111.9 fL (80.0-97.0); Mean Platelet Volume 11.3 fL (9.5-12.2); NRBC Per 100 WBC 0 /100 WBCS (0.0-0.0); Platelet Count 44 X 10*3/uL (140-440); RBC 2.18 X 10*6/uL (4.40-5.60); RDW 16.3 % (11.5-14.5); WBC 2.31 X 10*3/uL (4.50-10.00)
[2021-07-17 10:35] LABS: Immature Platelet Fraction 3.5 % (1.1-6.1)
[2021-07-17] MEDS: POTASSIUM CHLORIDE ER 20 MEQ TAB.ER PO SCH ×2 (10:40→11:39)
[2021-07-17] MEDS: IRON POLYSACCHARIDES COMPLEX 150 MG CAP PO SCH (11:39)
[2021-07-17] MEDS ORDERED: POTASSIUM CHLORIDE ER 20 MEQ TAB.ER PO STA (12:35)
--- NOTE | 2021-07-17 14:21 | P.PN ---
Subjective Progress Note Date: 07/17/21 HISTORY OF PRESENT ILLNESS: This is a 61 year old male with a previous medical history significant for hypertension and hypertensive cardiovascular disease, hyperlipidemia, history of pancreatitis in the past along with prior history of sepsis due to cellulitis about 2 year ago, history of chronic alcoholic hepatitis with alcoholic liver cirrhosis with elevated coags liver function test as well as from cytopenia without evidence of ascites in the past, patient was recently hospitalized on 06/18/2021 after he was admitted to the hospital with generalized abdominal distention as well as increase fluid in both lower extremities and inability to ambulate due to significant edema in both lower extremities, patient was admitted for worsening liver cirrhosis and he was treated with diuretics initially including Lasix and spironolactone however the patient became hypotensive and he was taken off diuretics including Lasix and spironolactone and he was taken off his antihypertensive medication as well, patient was seen in consultation by gastroenterology was recommended to continue with low-salt high-protein diet and follow-up with GI as an outpatient, patient was sent to [facility] for physical therapy rehabilitation he was just discharged about a few days ago after his days at the rehabilitation are ended and the patient came to my office yesterday with increased fatigue and tiredness and inability to perform activities of daily living, significant edema both lower extremities despite taking Lasix 20 mg once every day as well as spironolactone 25 mg once every day, patient has been sober without any alcohol ingestion since he was at [facility] patient was hard to ambulate he was taken outside the office by wheelchair and the patient wanted to be admitted to an extended care facility for chronic care as he is not able to carry on his activities of daily living, his son was with him at the bedside and he stated that he is not able to the care of his dad because the patient is not able to perform activities of daily living patient had significant edema both lower extremities, significant abdominal distention without evidence of ascites patient was referred to the ER for evaluation he was started on Lasix 40 mg IV push every 12 hours along with spironolactone 50 mg orally once every day, patient had an elevated d-dimer underwent CTA of the chest that was negative for pulmonary embolism, patient was admitted to the hospital for evaluation by [facility] and hopefully this position to extended care facility for chronic care. 07/15: Patient is laying down in bed he appears to be a bit down today, he continues to urinate a lot with the Lasix, we will continue to monitor the patient awake twice, magnesium, potassium, patient will be started on stool softeners Senokot 2 tablets at bedtime, because of constipation, patient declined lactulose as this time even though it may be a better choice due to his liver cirrhosis and possibility of hepatic encephalopathy due to ammonia buildup. 07/16: Patient is diuresing very well but continues to have significant edema. We'll continue Lasix at 40 mg IV twice daily and increase Aldactone to 50 mg twice daily. Patient has been afebrile, heart rate 78, blood pressure 97/58, pulse ox 95% on room air Blood work today reveals sodium 133, potassium 3.0 and will be replaced. BUN 10 and creatinine 0.71. 07/17: Patient has improvement of his lower extremity edema. He does have some nausea started around midnight when he was getting up to the bathroom. He developed diarrhea. He has been afebrile, heart rate 81, blood pressure 123/74, pulse ox 94% on room air. Lasix will be transitioned to oral and patient continued on Aldactone. Insurance authorization has been obtained and patient will be discharged to [facility] tomorrow. REVIEW OF SYSTEMS: Constitutional: No documented fever, no chills, no night sweats. No weight change. positive for weakness, positive for fatigue or lethargy. No daytime sleepiness. HEENT: No headache. No blurred vision or double vision, no loss of vision. No loss of Hearing, no ringing in the ears, no dizziness. No nasal drainage or congestion. No epistaxis. No sore throat. Lungs: No shortness of breath, no cough, no sputum production. No wheezing. Reports dyspnea with activity. Cardiovascular: No chest pain, positive for lower extremity edema-improved. No palpitations. No paroxysmal nocturnal dyspnea. No orthopnea. No lightheadedne ss or dizziness. No syncopal episodes. Abdominal: Reports abdominal pain. Positive nausea, vomiting. positive for diarrhea. No constipation. No bloody or tarry stools reports loss of appetite. Genitourinary: No dysuria, increased frequency, urgency. No urinary retention. Musculoskeletal: No myalgias. positive for muscle weakness, no gait dysfunction, no frequent falls. No back pain. No neck pain. Integumentary: No wounds, no lesions. No rash or pruritus. No unusual bruising. No change in hair or nails. Neurologic: No aphasia. No facial droop. No change in mentation. No head injury. No headache. No paralysis. No paresthesia. Psychiatric: No depression. No anxiety. No mood swings. Endocrine: No abnormal blood sugars. No weight change. PHYSICAL EXAMINATION: General: 61-year-old male laying down in bed in no apparent distress HEENT: Head is atraumatic, normocephalic, pupils were equal round reactive to light and recommendation, extraocular muscle movement were intact, sclera are deeply icteric, conjunctivae were pale, mucous membranes of the mouth are somewh at dry. Neck: Supple, no JVP, normal carotid upstroke bilaterally, no lymphadenopathy. Chest: Decreased breath sounds at the bases, few rhonchi, no expiratory wheezes, no chest wall tenderness, no intercostal retractions. Heart: First heart sound is normal, second heart sounds normal there is BLANCA 2/6 located at the left sternal border Abdomen: Soft, distended moderate ascites, nonspecific tenderness, positive bowel sounds. Extremities: There is +1 edema no calf tenderness DP +2 bilaterally. Jagdeep wraps in place to the bilateral lower extremities. Neurologic examination: Patient is awake alert and oriented X 3, cranial nerves II-12 appear grossly intact, muscle power were 5 out of 5 in upper extremities and 5 out of 5 in bilateral lower extremities, deep tendon reflexes normal bilaterally. ASSESSMENT AND PLAN: 1. Acute on chronic alcohol hepatitis with alcoholic liver cirrhosis associated with decompensated Ascites . continue patient on low-salt diet, high-protein diet, start the patient on Lasix 40 mg oral twice daily continue Aldactone 50 mg twice daily.Monitor the patient input and output and daily weight. 2. Moderate amount of ascites. Less and patient does not have significant amount of ascites in abdomen soft he never had any paracentesis. We'll continue with diuretics for now and monitor the patient's symptoms very closely. 3. Hypertension and hypertensive cardiovascular disease. Currently normotensive patient has been off his antihypertensive medications. 4. GERD. Continue patient on Protonix 40 mg orally once every day. 5. DVT prophylaxis. Bilateral knee-high TAMI hose. 6. Pancytopenia. likely related to liver cirrhosis, we'll transfuse for hemoglobin less than 7. 7. Hyponatremia likely related to hypervolemia.. Continue Lasix and Aldactone. 8. Medical debility due to underlying liver cirrhosis physical therapy evaluation. 9. Hypotension. Patient is on midodrine 5 mg 3 times daily. social contact worker consultation for discharge planning patient is asking to be admitted to a skilled nursing for chronic care. DISCHARGE PLAN Friday Impression and plan of care have been directed as dictated by the signing physician. Sherita Nicole nurse practitioner acting as scribe for signing physician. Objective - Vital Signs Vital signs: Vital Signs Temp 97.9 F 07/17/21 07:08 Pulse 81 07/17/21 07:08 Resp 19 07/17/21 07:08 BP 123/74 07/17/21 07:08 Pulse Ox 94 L 07/17/21 07:08 Intake & Output 07/16/21 07/17/21 07/17/21 18:59 06:59 18:59 Intake Total 1080 Output Total 800 Balance 1080 -800 Intake: Oral 1080 Output: Urine 800 Other: # Voids 3 1 # Bowel Movements 1 1 - Labs CBC & Chem 7: 07/17/21 04:17 07/17/21 04:17 Labs: Abnormal Lab Results - Last 24 Hours (Table) 07/16/21 07/17/21 07/17/21 Range/Units 12:12 04:17 04:17 WBC 2.31 L (4.50-10.00) X 10*3/uL RBC 2.18 L (4.40-5.60) X 10*6/uL Hgb 7.8 L (13.0-17.0) g/dL Hct 24.4 L (39.6-50.0) % MCV 111.9 H (80.0-97.0) fL MCH 35.8 H (27.0-32.0) pg RDW 16.3 H (11.5-14.5) % Plt Count 44 L (140-440) X 10*3/uL Sodium 133 L 133 L (137-145) mmol/L Potassium 3.0 L 3.3 L (3.5-5.1) mmol/L Anion Gap 6.00 L (10.00-18.00) mmol/L Glucose 115 H (74-99) mg/dL Calcium 7.4 L 7.6 L (8.4-10.2) mg/dL Total Bilirubin 4.60 H (0.30-1.20) mg/dL AST 50 H (14-35) U/L ALT 51 H (10-49) U/L Total Protein 5.6 L (6.2-8.2) g/dL Albumin 2.1 L (3.8-4.9) g/dL Globulin 3.5 H (1.6-3.3) g/dL Albumin/Globulin Ratio 0.60 L (1.60-3.17) g/dL
[2021-07-17] MEDS: FUROSEMIDE 40 MG TAB PO SCH (15:44)
[2021-07-17] MEDS: traZODone HCL 100 MG TAB PO SCH (22:18)
[2021-07-17] MEDS: SERTRALINE 50 MG TAB PO SCH (22:18)
[2021-07-18] MEDS: FOLIC ACID 1 MG TAB PO SCH (07:29)
[2021-07-18] MEDS: CYANOCOBALAMIN 500 MCG TAB PO SCH (07:29)
[2021-07-18] MEDS: SENNOSIDES-DOCUSATE SODIUM 1 EACH TAB PO SCH (07:30)
[2021-07-18] MEDS: SPIRONOLACTONE 25 MG TAB PO SCH (07:30)
[2021-07-18] MEDS: PANTOPRAZOLE 40 MG TABLET PO SCH (07:31)
[2021-07-18] MEDS: MIDODRINE 5 MG TAB PO SCH ×2 (07:32→13:17)
[2021-07-18] MEDS: FUROSEMIDE 40 MG TAB PO SCH ×2 (07:32→15:31)
[2021-07-18] MEDS ORDERED: POTASSIUM CHLORIDE ER 20 MEQ TAB.ER PO SCH (09:00)
[2021-07-18] MEDS ORDERED: SENNOSIDES-DOCUSATE SODIUM 1 EACH TAB PO PRN (11:59)
[2021-07-18] MEDS: IRON POLYSACCHARIDES COMPLEX 150 MG CAP PO SCH (13:17)
--- NOTE | 2021-07-18 13:30 | P.DS ---
Providers Date of admission: 07/13/21 19:07 Expected date of discharge: 07/18/21 Attending physician: Reggie Cho Primary care physician: Reggie Cho Hospital Course: HISTORY OF PRESENT ILLNESS: This is a 61 year old male with a previous medical history significant for hypertension and hypertensive cardiovascular disease, hyperlipidemia, history of pancreatitis in the past along with prior history of sepsis due to cellulitis about 2 year ago, history of chronic alcoholic hepatitis with alcoholic liver cirrhosis with elevated coags liver function test as well as from cytopenia without evidence of ascites in the past, patient was recently hospitalized on 06/18/2021 after he was admitted to the hospital with generalized abdominal distention as well as increase fluid in both lower extremities and inability to ambulate due to significant edema in both lower extremities, patient was admitted for worsening liver cirrhosis and he was treated with diuretics initially including Lasix and spironolactone however the patient became hypotensive and he was taken off diuretics including Lasix and spironolactone and he was taken off his antihypertensive medication as well, patient was seen in consultation by gastroenterology was recommended to continue with low-salt high-protein diet and follow-up with GI as an outpatient, patient was sent to [facility] for physical therapy rehabilitation he was just discharged about a few days ago after his days at the rehabilitation are ended and the patient came to my office yesterday with increased fatigue and tiredness and inability to perform activities of daily living, significant edema both lower extremities despite taking Lasix 20 mg once every day as well as spironolactone 25 mg once every day, patient has been sober without any alcohol ingestion since he was at [facility] patient was hard to ambulate he was taken outside the office by wheelchair and the patient wanted to be admitted to an extended care facility for chronic care as he is not able to carry on his activities of daily living, his son was with him at the bedside and he stated that he is not able to the care of his dad because the patient is not able to perform activities of daily living patient had significant edema both lower extremities, significant abdominal distention without evidence of ascites patient was referred to the ER for evaluation he was started on Lasix 40 mg IV push every 12 hours along with spironolactone 50 mg orally once every day, patient had an elevated d-dimer underwent CTA of the chest that was negative for pulmonary embolism, patient was admitted to the hospital for evaluation by physical therapy and hopefully this position to extended care facility for chronic care. 07/15: Patient is laying down in bed he appears to be a bit down today, he contin ues to urinate a lot with the Lasix, we will continue to monitor the patient awake twice, magnesium, potassium, patient will be started on stool softeners Senokot 2 tablets at bedtime, because of constipation, patient declined lactulose as this time even though it may be a better choice due to his liver cirrhosis and possibility of hepatic encephalopathy due to ammonia buildup. 07/16: Patient is diuresing very well but continues to have significant edema. We'll continue Lasix at 40 mg IV twice daily and increase Aldactone to 50 mg twice daily. Patient has been afebrile, heart rate 78, blood pressure 97/58, pulse ox 95% on room air Blood work today reveals sodium 133, potassium 3.0 and will be replaced. BUN 10 and creatinine 0.71. 07/17: Patient has improvement of his lower extremity edema. He does have some nausea started around midnight when he was getting up to the bathroom. He developed diarrhea. He has been afebrile, heart rate 81, blood pressure 123/74, pulse ox 94% on room air. Lasix will be transitioned to oral and patient continued on Aldactone. Insurance authorization has been obtained and patient will be discharged to [facility] tomorrow. 07/18: Patient denies new complaints. Ambulating slowly with cane, edema is improved. Appetite is adequate. Potassium is improved as well and will plan to monitor closely while on Potassium and aldactone. Patient will be discharged to [facility] in stable conidition. DISCHARGE DIAGNOSES 1. Acute on chronic alcohol hepatitis with alcoholic liver cirrhosis associated with decompensated Ascites. 2. Moderate amount of ascites. 3. Hypertension and hypertensive cardiovascular disease. 4. GERD. 5. Hypotension. 6. Pancytopenia. likely related to liver cirrhosis. 7. Hyponatremia likely related to hypervolemia. 8. Medical debility due to underlying liver cirrhosis physical therapy evaluation. DISCHARGE PLAN Regen Greater than 35 minutes was utilized and coordinating patient's discharge. Impression and plan of care have been directed as dictated by the signing physician. Sherita Nicole nurse practitioner acting as scribe for signing physician. Patient Condition at Discharge: Stable Plan - Discharge Summary Discharge Rx Participant: No New Discharge Prescriptions: New Folic Acid 1 mg PO DAILY tab Iron Polysaccharides Complex [Niferex-150] 150 mg PO DAILY@1200 cap Sennosides-Docusate Sodium [Senokot-S] 1 each PO BID PRN tab PRN Reason: Constipation Cyanocobalamin [Vitamin B-12] 1,000 mcg PO DAILY tab Spironolactone [Aldactone] 50 mg PO BID tab Potassium Chloride ER [K-Dur 20] 20 meq PO DAILY tablet Furosemide [Lasix] 40 mg PO BID@0900,1600 tab Sertraline [Zoloft] 50 mg PO HS tab Discontinued Furosemide [Lasix] 20 mg PO DAILY No Action Ipratropium-Albuterol Nebulize [Duoneb 0.5 mg-3 mg/3 ml Soln] 3 ml INHALATION RT-QID PRN ml PRN Reason: Shortness Of Breath Or Wheezing Zinc Gluconate [Zinc] 50 mg PO HS Albuterol Sulfate [Proair Hfa] 2 puff INHALATION RT-Q6H PRN PRN Reason: Shortness Of Breath traZODone HCL [Desyrel] 100 mg PO HS Pantoprazole [Protonix] 40 mg PO AC-BRKFST tab Spironolactone 25 mg PO DAILY Midodrine [ProAmatine] 5 mg PO Q8H Discharge Medication List Albuterol Sulfate [Proair Hfa] 2 puff INHALATION RT-Q6H PRN 06/18/21 [History] Zinc Gluconate [Zinc] 50 mg PO HS 06/18/21 [History] traZODone HCL [Desyrel] 100 mg PO HS 06/18/21 [History] Ipratropium-Albuterol Nebulize [Duoneb 0.5 mg-3 mg/3 ml Soln] 3 ml INHALATION RT-QID PRN ml 06/22/21 [Rx] Pantoprazole [Protonix] 40 mg PO AC-BRKFST tab 06/22/21 [Rx] Midodrine [ProAmatine] 5 mg PO Q8H 07/13/21 [History] Spironolactone 25 mg PO DAILY 07/13/21 [History] Cyanocobalamin [Vitamin B-12] 1,000 mcg PO DAILY tab 07/18/21 [Rx] Folic Acid 1 mg PO DAILY tab 07/18/21 [Rx] Furosemide [Lasix] 40 mg PO BID@0900,1600 tab 07/18/21 [Rx] Iron Polysaccharides Complex [Niferex-150] 150 mg PO DAILY@1200 cap 07/18/21 [Rx] Potassium Chloride ER [K-Dur 20] 20 meq PO DAILY tablet 07/18/21 [Rx] Sennosides-Docusate Sodium [Senokot-S] 1 each PO BID PRN tab 07/18/21 [Rx] Sertraline [Zoloft] 50 mg PO HS tab 07/18/21 [Rx] Spironolactone [Aldactone] 50 mg PO BID tab 07/18/21 [Rx] Follow up Appointment(s)/Referral(s): Reggie Cho MD [Primary Care Provider] - 1 Week (at [facility]) Ambulatory/Diagnostic Orders: Comprehensive Metabolic Panel [LAB.AMB] Location: None Selected Discharge Disposition: TRANSFER TO SNF/ECF
[2021-07-18 15:16] VITALS: BP 125/74; PULSE 92; RESP 18; TEMP 98.7
== END 2021-07-18 17:14 | DRG 433 ==
LOC: EC 14:57 → 4SSUR 19:07
PROVIDERS: ADMIT Internal Medicine; ATTEND Internal Medicine
DX: K70.11 Alcoholic hepatitis with ascites (principal); D61.818 Other pancytopenia; E87.1 Hypo-osmolality and hyponatremia; D68.9 Coagulation defect, unspecified; K86.1 Other chronic pancreatitis; K70.31 Alcoholic cirrhosis of liver with ascites; F10.20 Alcohol dependence, uncomplicated; R16.1 Splenomegaly, not elsewhere classified; E87.70 Fluid overload, unspecified; R60.0 Localized edema; K59.00 Constipation, unspecified; I10 Essential (primary) hypertension; I95.9 Hypotension, unspecified; E78.5 Hyperlipidemia, unspecified; K21.9 Gastro-esophageal reflux disease without esophagitis; M19.90 Unspecified osteoarthritis, unspecified site; Z88.8 Allergy status to other drugs, medicaments and biological substances; Z79.899 Other long term (current) drug therapy; Z87.01 Personal history of pneumonia (recurrent); Z86.19 Personal history of other infectious and parasitic diseases; Z82.49 Family history of ischemic heart disease and other diseases of the circulatory system; Z82.3 Family history of stroke
CPT/HCPCS: 36415; 71046; 71275; 80048; 80053; 81003; 82140; 83605; 83735; 83880; 84132; 84484; 85025; 85027; 85379; 85610; 85730; 93005; 94760; 96374; 99285

== ENCOUNTER 2021-08-17 08:49 | Day surgery (SDC) | payer OTHER ==
[2021-08-17 09:36] LABS: Mean Platelet Volume 7.4
[2021-08-17 09:39] LABS: Platelet Count 87 k/uL (150-450)
[2021-08-17 09:41] VITALS: TEMP 98
[2021-08-17 09:49] LABS: INR 1.4 (<1.2); Prothrombin Time 14.8 sec (9.0-12.0)
[2021-08-17 09:50] LABS: African American GFR (CKD) >90 (>60 ml/min/1.73 sqM); Non-African American GFR(CKD) >90 (>60 ml/min/1.73 sqM)
[2021-08-17] MEDS ORDERED: LIDOCAINE 1% INJ 10MG/ML (5 ML VIAL-PF) SQ ONE (10:17)
[2021-08-17] MEDS: ALBUMIN HUMAN 25% 50 ML in EMPTY BAG 1 BAG IVPB SCH ×4 (10:42→11:19)
--- NOTE | 2021-08-17 11:58 | US ---
Ultrasound-guided paracentesis. DATE OF EXAM: 08/17/2021 CLINICAL HISTORY: Ascites The procedure was discussed with the patient. The risks, complications, benefits, and alternatives we re discussed and any questions were answered. Informed consent was obtained. The patient was placed s upine on the ultrasound table and prepped and draped in the usual sterile fashion. All elements of maximal barrier technique were utilized. Under ultrasound guidance, access into the right lower quadrant was obtained, via the paracentesis catheter system and direct ultrasound guidanc e. Approximately 6.7 liters of straw-colored fluid was removed. The patient was stable throughout the pr ocedure and remained stable upon discharge from Department of Radiology. IMPRESSION: Successful paracentesis under ultrasound guidance.
[2021-08-17 12:06] VITALS: RESP 16
[2021-08-17 12:07] VITALS: BP 144/70; PULSE 85
[2021-08-17 19:41] LABS: Appearance,BF Cloudy
[2021-08-17 23:25] LABS: Glucose, BF Source Peritoneal Fluid; Glucose, Body Fluid 107 mg/dL; LDH, Body Fluid Source Peritoneal Fluid; T. Protein, Body Fluid Source Peritoneal Fluid; Total Protein, Body Fluid 1150 mg/dL
== END 2021-08-17 11:55 | disposition home or self-care (01) ==
LOC: RADPROMAIN 08:49
PROVIDERS: ATTEND Internal Medicine
DX: R18.8 Other ascites (principal)
CPT/HCPCS: 88108; 88305; 89050; 82565; 85049; 85610; 82945; 83615; 84157; 36415; 49083; J2001; P9047

== ENCOUNTER 2021-10-03 08:55 | Day surgery (SDC) | payer OTHER ==
[2021-10-03 09:34] VITALS: RESP 18; TEMP 98.3
[2021-10-03 09:38] LABS: Mean Platelet Volume 8.2
[2021-10-03 09:43] LABS: INR 1.4 (<1.2); Prothrombin Time 14.4 sec (9.0-12.0)
[2021-10-03 09:49] LABS: African American GFR (CKD) >90 (>60 ml/min/1.73 sqM); Non-African American GFR(CKD) >90 (>60 ml/min/1.73 sqM)
[2021-10-03 09:51] LABS: Platelet Count 80 k/uL (150-450)
[2021-10-03] MEDS: ALBUMIN HUMAN 25% 50 ML in EMPTY BAG 1 BAG IVPB SCH ×4 (10:31→11:35)
[2021-10-03 12:41] VITALS: BP 129/56; PULSE 90
--- NOTE | 2021-10-03 13:11 | US ---
Ultrasound-guided paracentesis. DATE OF EXAM: 10/03/2021 CLINICAL HISTORY: Ascites The procedure was discussed with the patient. The risks, complications, benefits, and alternatives we re discussed and any questions were answered. Informed consent was obtained. The patient was placed s upine on the ultrasound table and prepped and draped in the usual sterile fashion. All elements of maximal barrier technique were utilized. Under ultrasound guidance, access into the right lower quadrant was obtained, via the paracentesis catheter system and direct ultrasound guidanc e. Approximately 12 liters of straw-colored fluid was removed. The patient was stable throughout the pro cedure and remained stable upon discharge from Department of Radiology. IMPRESSION: Successful paracentesis under ultrasound guidance.
== END 2021-10-03 12:30 | disposition home or self-care (01) ==
LOC: RADPROMAIN 08:55
PROVIDERS: ATTEND Internal Medicine
DX: K70.31 Alcoholic cirrhosis of liver with ascites (principal)
CPT/HCPCS: 82565; 85049; 85610; 36415; 49083; P9047

== ENCOUNTER 2021-10-29 08:41 | Day surgery (SDC) | payer OTHER ==
[2021-10-29 09:08] VITALS: RESP 16; TEMP 99.1
[2021-10-29 09:26] LABS: INR 1.4 (<1.2); Prothrombin Time 14.3 sec (9.0-12.0)
[2021-10-29 09:49] LABS: African American GFR (CKD) >90 (>60 ml/min/1.73 sqM); Non-African American GFR(CKD) >90 (>60 ml/min/1.73 sqM)
[2021-10-29] MEDS: ALBUMIN HUMAN 25% 50 ML in EMPTY BAG 1 BAG IVPB SCH ×4 (10:20→11:10)
[2021-10-29 10:52] LABS: Platelet Count 75 k/uL (150-450)
[2021-10-29 12:03] VITALS: BP 126/73; PULSE 85
--- NOTE | 2021-10-29 13:08 | US ---
EXAMINATION TYPE: US paracentesis abd w/image DATE OF EXAM: 10/29/2021 COMPARISON: NONE HISTORY: Ascites. PROCEDURE: Maximal barrier technique was utilized. The skin overlying a suitable pocket of fluid was localized with ultrasound and the overlying skin was prepped and draped. Ultrasound was utilized with sterile technique. Lidocaine was used for local anesthesia and a skin renetta made with a scalpel. Catheter was advanced under direct ultrasound guidance into a suitable pocket of fluid and approximately 14.1 lite rs of ascites fluid were removed. Catheter was withdrawn and hemostasis achieved. There is no immed iate complication; the patient is discharged in stable condition. IMPRESSION: STATUS POST ULTRASOUND GUIDED PARACENTESIS FOR PALLIATION OF ASCITES. THIS PROCEDURE WA S PERFORMED BY THE UNDERSIGNED.
== END 2021-10-29 12:15 | disposition home or self-care (01) ==
LOC: RADPROMAIN 08:41
PROVIDERS: ATTEND Internal Medicine
DX: R18.8 Other ascites (principal)
CPT/HCPCS: 82565; 85049; 85610; 36415; 49083; P9047

== ENCOUNTER 2021-11-12 08:48 | Day surgery (SDC) | payer OTHER ==
[2021-11-12 09:21] VITALS: RESP 16; TEMP 98.5
[2021-11-12 09:38] LABS: Mean Platelet Volume 8.1
[2021-11-12 09:42] LABS: Platelet Count 70 k/uL (150-450)
[2021-11-12 09:45] LABS: INR 1.4 (<1.2); Prothrombin Time 14.1 sec (9.0-12.0)
[2021-11-12 09:51] LABS: African American GFR (CKD) >90 (>60 ml/min/1.73 sqM); Non-African American GFR(CKD) >90 (>60 ml/min/1.73 sqM)
[2021-11-12] MEDS: ALBUMIN HUMAN 25% 50 ML in EMPTY BAG 1 BAG IVPB SCH ×4 (10:25→11:16)
[2021-11-12 11:54] VITALS: BP 124/69; PULSE 82
--- NOTE | 2021-11-12 12:29 | US ---
Ultrasound-guided paracentesis. DATE OF EXAM: 11/12/2021 CLINICAL HISTORY: Ascites The procedure was discussed with the patient. The risks, complications, benefits, and alternatives we re discussed and any questions were answered. Informed consent was obtained. The patient was placed s upine on the ultrasound table and prepped and draped in the usual sterile fashion. All elements of maximal barrier technique were utilized. Under ultrasound guidance, access into the right lower quadrant was obtained, via the paracentesis catheter system and direct ultrasound guidanc e. Approximately 12.1 liters of straw-colored fluid was removed. The patient was stable throughout the p rocedure and remained stable upon discharge from Department of Radiology. IMPRESSION: Successful paracentesis under ultrasound guidance.
== END 2021-11-12 12:05 | disposition home or self-care (01) ==
LOC: RADPROMAIN 08:48
PROVIDERS: ATTEND Internal Medicine
DX: K70.31 Alcoholic cirrhosis of liver with ascites (principal); Z88.8 Allergy status to other drugs, medicaments and biological substances; Z79.899 Other long term (current) drug therapy; Z82.49 Family history of ischemic heart disease and other diseases of the circulatory system; Z82.3 Family history of stroke
CPT/HCPCS: 82565; 85049; 85610; 36415; 49083; P9047

== ENCOUNTER 2021-12-12 08:43 | Day surgery (SDC) | payer OTHER ==
[2021-12-12 09:34] VITALS: RESP 16; TEMP 98.2
[2021-12-12 09:46] LABS: Mean Platelet Volume 10.2
[2021-12-12 09:51] LABS: Platelet Count 41 k/uL (150-450)
[2021-12-12 09:53] LABS: African American GFR (CKD) >90 (>60 ml/min/1.73 sqM); Non-African American GFR(CKD) >90 (>60 ml/min/1.73 sqM)
[2021-12-12 10:29] LABS: INR 1.4 (<1.2); Prothrombin Time 14.3 sec (9.0-12.0)
[2021-12-12] MEDS: ALBUMIN HUMAN 25% 50 ML in EMPTY BAG 1 BAG IVPB SCH ×4 (11:56→12:49)
[2021-12-12 12:54] VITALS: BP 136/60; PULSE 75
--- NOTE | 2021-12-14 08:15 | US ---
Ultrasound-guided paracentesis. DATE OF EXAM: 12/13/2021 CLINICAL HISTORY: Ascites The procedure was discussed with the patient. The risks, complications, benefits, and alternatives we re discussed and any questions were answered. Informed consent was obtained. The patient was placed s upine on the ultrasound table and prepped and draped in the usual sterile fashion. All elements of maximal barrier technique were utilized. Under ultrasound guidance, access into the right lower quadrant was obtained, via the paracentesis catheter system and direct ultrasound guidanc e. Approximately 12 liters of straw-colored fluid was removed. The patient was stable throughout the pro cedure and remained stable upon discharge from Department of Radiology. IMPRESSION: Successful paracentesis under ultrasound guidance.
== END 2021-12-12 13:20 | disposition home or self-care (01) ==
LOC: RADPROMAIN 08:43
PROVIDERS: ATTEND Internal Medicine
DX: K70.31 Alcoholic cirrhosis of liver with ascites (principal); Z88.8 Allergy status to other drugs, medicaments and biological substances; Z79.899 Other long term (current) drug therapy; Z82.3 Family history of stroke; Z82.49 Family history of ischemic heart disease and other diseases of the circulatory system
CPT/HCPCS: 82565; 85049; 85610; 36415; 49083; P9047

== ENCOUNTER → 2021-12-19 | Outpatient (CLI) | payer OTHER | END | disposition home or self-care (01) | LOC: LABPAT 13:37 | PROVIDERS: ATTEND Internal Medicine | DX: Z01.812 Encounter for preprocedural laboratory examination (principal) | CPT/HCPCS: 36415; 86850; 86900; 86901 ==

== ENCOUNTER 2021-12-26 07:43 | Day surgery (SDC) | payer OTHER ==
[2021-12-26 08:43] VITALS: RESP 16; TEMP 98.6
[2021-12-26 08:51] LABS: Mean Platelet Volume 8.1; Platelet Count 64 k/uL (150-450)
[2021-12-26] MEDS: ALBUMIN HUMAN 25% 50 ML in EMPTY BAG 1 BAG IVPB SCH ×4 (08:55→10:17)
[2021-12-26 08:56] LABS: INR 1.4 (<1.2); Prothrombin Time 14.8 sec (9.0-12.0)
[2021-12-26 09:00] LABS: African American GFR (CKD) >90 (>60 ml/min/1.73 sqM); Non-African American GFR(CKD) >90 (>60 ml/min/1.73 sqM)
[2021-12-26 11:49] VITALS: BP 130/71; PULSE 76
--- NOTE | 2021-12-26 13:50 | US ---
EXAMINATION TYPE: US paracentesis abd w/image DATE OF EXAM: 12/26/2021 COMPARISON: NONE HISTORY: Ascites. PROCEDURE: Maximal barrier technique was utilized. The skin overlying a suitable pocket of fluid was localized with ultrasound and the overlying skin was prepped and draped. Ultrasound was utilized with sterile technique. Lidocaine was used for local anesthesia and a skin renetta made with a scalpel. Catheter was advanced under direct ultrasound guidance into a suitable pocket of fluid and approximately 13.7 lite rs of ascites fluid were removed. Catheter was withdrawn and hemostasis achieved. There is no immed iate complication; the patient is discharged in stable condition. IMPRESSION: STATUS POST ULTRASOUND GUIDED PARACENTESIS FOR PALLIATION OF ASCITES. THIS PROCEDURE WA S PERFORMED BY THE UNDERSIGNED.
== END 2021-12-26 12:00 | disposition home or self-care (01) ==
LOC: RADPROMAIN 07:43
PROVIDERS: ATTEND Internal Medicine
DX: R18.8 Other ascites (principal)
CPT/HCPCS: 86900; 86901; 82565; 85049; 85610; 86850; 36415 ×2; 49083; P9047

== ENCOUNTER 2022-01-09 07:36 | Day surgery (SDC) | payer OTHER ==
[2022-01-09 08:34] LABS: Mean Platelet Volume 8.4
[2022-01-09 08:38] VITALS: RESP 18; TEMP 98.1
[2022-01-09 08:38] LABS: INR 1.4 (<1.2); Prothrombin Time 14.2 sec (9.0-12.0)
[2022-01-09 08:40] LABS: Platelet Count 61 k/uL (150-450)
[2022-01-09 08:46] LABS: African American GFR (CKD) >90 (>60 ml/min/1.73 sqM); Non-African American GFR(CKD) >90 (>60 ml/min/1.73 sqM)
[2022-01-09] MEDS: ALBUMIN HUMAN 25% 50 ML in EMPTY BAG 1 BAG IVPB SCH ×4 (09:48→10:41)
[2022-01-09 11:19] VITALS: BP 127/60; PULSE 77
--- NOTE | 2022-01-09 11:55 | US ---
Ultrasound-guided paracentesis. DATE OF EXAM: 01/09/2022 CLINICAL HISTORY: Ascites The procedure was discussed with the patient. The risks, complications, benefits, and alternatives we re discussed and any questions were answered. Informed consent was obtained. The patient was placed s upine on the ultrasound table and prepped and draped in the usual sterile fashion. All elements of maximal barrier technique were utilized. Under ultrasound guidance, access into the right lower quadrant was obtained, via the paracentesis catheter system and direct ultrasound guidanc e. Approximately 12.6 liters of straw-colored fluid was removed. The patient was stable throughout the p rocedure and remained stable upon discharge from Department of Radiology. IMPRESSION: Successful paracentesis under ultrasound guidance.
== END 2022-01-09 11:15 | disposition home or self-care (01) ==
LOC: RADPROMAIN 07:36
PROVIDERS: ATTEND Internal Medicine
DX: R18.8 Other ascites (principal)
CPT/HCPCS: 82565; 85049; 85610; 36415; 49083; P9047

== ENCOUNTER 2022-01-23 07:47 | Day surgery (SDC) | payer OTHER ==
[2022-01-23 08:37] LABS: INR 1.4 (<1.2); Prothrombin Time 14.2 sec (9.0-12.0)
[2022-01-23 08:38] VITALS: TEMP 98
[2022-01-23 08:38] LABS: Mean Platelet Volume 9.7
[2022-01-23 08:43] LABS: African American GFR (CKD) >90 (>60 ml/min/1.73 sqM); Non-African American GFR(CKD) >90 (>60 ml/min/1.73 sqM)
[2022-01-23 08:56] LABS: Platelet Count 65 k/uL (150-450)
[2022-01-23] MEDS: ALBUMIN HUMAN 25% 50 ML in EMPTY BAG 1 BAG IVPB SCH ×4 (09:20→10:19)
[2022-01-23 09:35] VITALS: RESP 18
[2022-01-23 10:37] VITALS: BP 128/58; PULSE 75
--- NOTE | 2022-01-23 12:11 | US ---
Ultrasound-guided paracentesis. DATE OF EXAM: 01/23/2022 CLINICAL HISTORY: Cirrhosis with ascites The procedure was discussed with the patient. The risks, complications, benefits, and alternatives we re discussed and any questions were answered. Informed consent was obtained. The patient was placed s upine on the ultrasound table and prepped and draped in the usual sterile fashion. All elements of maximal barrier technique were utilized. Under ultrasound guidance, access into the right lower quadrant was obtained, via the paracentesis catheter system and direct ultrasound guidanc e. Approximately 14 liters of straw-colored fluid was removed. The patient was stable throughout the pro cedure and remained stable upon discharge from Department of Radiology. IMPRESSION: Successful paracentesis under ultrasound guidance.
== END 2022-01-23 11:49 | disposition home or self-care (01) ==
LOC: RADPROMAIN 07:47
PROVIDERS: ATTEND Internal Medicine
DX: R18.8 Other ascites (principal); K74.60 Unspecified cirrhosis of liver
CPT/HCPCS: 82565; 85049; 85610; 36415; 49083; P9047

== ENCOUNTER 2022-02-20 07:42 | Day surgery (SDC) | payer OTHER ==
[2022-02-20 08:39] LABS: Mean Platelet Volume 8.9
[2022-02-20 08:45] LABS: INR 1.3 (<1.2)
[2022-02-20 08:50] LABS: African American GFR (CKD) >90 (>60 ml/min/1.73 sqM); Non-African American GFR(CKD) >90 (>60 ml/min/1.73 sqM)
[2022-02-20 08:53] VITALS: TEMP 97.6
[2022-02-20 08:53] LABS: Glucose 86 mg/dL (74-99)
[2022-02-20 09:01] LABS: Platelet Count 68 k/uL (150-450)
[2022-02-20] MEDS: ALBUMIN HUMAN 25% 50 ML in EMPTY BAG 1 BAG IVPB SCH ×4 (09:23→10:18)
[2022-02-20 10:17] VITALS: RESP 16
[2022-02-20 11:30] VITALS: BP 117/71; PULSE 74
--- NOTE | 2022-02-20 12:17 | US ---
Ultrasound-guided paracentesis. DATE OF EXAM: 02/20/2022 CLINICAL HISTORY: Ascites The procedure was discussed with the patient. The risks, complications, benefits, and alternatives we re discussed and any questions were answered. Informed consent was obtained. The patient was placed s upine on the ultrasound table and prepped and draped in the usual sterile fashion. All elements of maximal barrier technique were utilized. Under ultrasound guidance, access into the right lower quadrant was obtained, via the paracentesis catheter system and direct ultrasound guidanc e. Approximately 15 liters of straw-colored fluid was removed. The patient was stable throughout the pro cedure and remained stable upon discharge from Department of Radiology. IMPRESSION: Successful paracentesis under ultrasound guidance.
== END 2022-02-20 11:20 | disposition home or self-care (01) ==
LOC: RADPROMAIN 07:42
PROVIDERS: ATTEND Internal Medicine
DX: R18.8 Other ascites (principal)
CPT/HCPCS: 82565; 82947; 85049; 85610; 36415; 49083; P9047

== ENCOUNTER 2022-03-06 07:43 | Day surgery (SDC) | payer OTHER ==
[2022-03-06 08:42] VITALS: RESP 16; TEMP 98.2
[2022-03-06 08:46] LABS: Mean Platelet Volume 8.7
[2022-03-06 08:49] LABS: Platelet Count 61 k/uL (150-450)
[2022-03-06 08:55] LABS: African American GFR (CKD) >90 (>60 ml/min/1.73 sqM); Non-African American GFR(CKD) >90 (>60 ml/min/1.73 sqM)
[2022-03-06 09:04] LABS: INR 1.4 (<1.2); Prothrombin Time 13.8 sec (9.0-12.0)
[2022-03-06] MEDS: ALBUMIN HUMAN 25% 50 ML in EMPTY BAG 1 BAG IVPB SCH ×4 (09:33→10:25)
[2022-03-06 11:14] VITALS: BP 117/67; PULSE 79
--- NOTE | 2022-03-06 13:10 | US ---
EXAM: Ultrasound-guided Paracentesis DATE: 03/06/2022 11:39 AM REASON FOR EXAM: Ascites RADIOLOGIST: Dr. Riley LENS GRINDER: None ANESTHESIA: Local Lidocaine TECHNIQUE: I verify that I have discussed the potential benefits, risks, and side effects regarding this treatme nt/procedure, the likelihood of the patient achieving his or her goals, and the potential problems th at might occur during recuperation. I verify that I have explained the alternatives to the patient i ncluding the risks, benefits, and side effects related to the alternatives and the risks related to n ot receiving the operation/procedure/treatment. The patient/surrogate decision maker has had an oppo rtunity to ask and have questions answered. I have secured the patient's or the surrogate decision m joe's consent prior to the operation/procedure/treatment. Patient was placed supine on ultrasound table and the lower abdomen was prepped and draped in usual s terile fashion. 1% lidocaine was infused into the skin and subcutaneous soft tissues to achieve local anesthesia. Under sonographic guidance a 5 F Yueh needle was advanced into the ascites. Approximat bret 14,800 ml of dark pascale-colored fluid was removed. FINDINGS: Sonographic images of the abdomen demonstrate a large amount of free fluid. IMPRESSION: Technically successful uncomplicated paracentesis.
== END 2022-03-06 11:25 | disposition home or self-care (01) ==
LOC: RADPROMAIN 07:43
PROVIDERS: ATTEND Internal Medicine
DX: R18.8 Other ascites (principal)
CPT/HCPCS: 82565; 85049; 85610; 49083; P9047

== ENCOUNTER → 2022-03-06 | Outpatient (CLI) | payer OTHER ==
[2022-03-06 19:23] LABS: Chol/HDL Ratio 2.46 Ratio; LDL Cholesterol,Calculated 44.7 mg/dL (0.0-131.0); Magnesium 2.2 mg/dL (1.5-2.4)
[2022-03-06 19:38] LABS: Basophils # (A) 0.02 X 10*3/uL (0.00-0.10); Eosinophils % (A) 5.2 %; HCT 30.4 % (39.6-50.0); HGB 10.1 g/dL (13.0-17.0); Immature Grans, Automated 0 %; Immature Platelet Fraction 2.9 % (1.1-6.1); Lymphocytes # (A) 0.35 X 10*3/uL (0.90-5.00); MCHC 33.2 g/dL (32.0-37.0); MCV 99.3 fL (80.0-97.0); Mean Platelet Volume 11.7 fL (9.5-12.2); Monocytes # (A) 0.22 X 10*3/uL (0.20-1.00); Monocytes % (A) 11.3 %; NRBC Per 100 WBC 0 /100 WBCS (0.0-0.0); Neutrophils # (A) 1.25 X 10*3/uL (1.80-7.70); Neutrophils % (A) 64.5 %; Platelet Count 48 X 10*3/uL (140-440); RBC 3.06 X 10*6/uL (4.40-5.60); RDW 14.6 % (11.5-14.5); WBC 1.94 X 10*3/uL (4.50-10.00)
[2022-03-06 19:53] LABS: INR 1.3 (0.90-1.11); Prothrombin Time 14.5 sec (9.9-11.9)
[2022-03-06 20:18] LABS: ALT 20 U/L (10-49); AST 32 U/L (14-35); African American GFR (CKD) 107.5 (60.0-200.0); Albumin 3.2 g/dL (3.8-4.9); Albumin/Globulin Ratio 1.11 (1.60-3.17); Alkaline Phosphatase 90 U/L (41-126); BUN/Creat Ratio 11.15 Ratio (12.00-20.00); Blood Urea Nitrogen 9.5 mg/dL (9.0-27.0); Calcium 8.2 mg/dL (8.7-10.3); Chloride 104 mmol/L (96-109); Globulin 2.9 g/dL (1.6-3.3); Glucose 79 mg/dL (70-110); Non-African American GFR(CKD) 92.8 (60.0-200.0); Potassium 3.4 mmol/L (3.5-5.5); Sodium 136 mmol/L (135-145); Total Protein 6.1 g/dL (6.2-8.2)
== END | disposition home or self-care (01) ==
LOC: LABWHC1 11:24
PROVIDERS: ATTEND Internal Medicine
DX: E78.2 Mixed hyperlipidemia (principal); K70.31 Alcoholic cirrhosis of liver with ascites; J44.9 Chronic obstructive pulmonary disease, unspecified
CPT/HCPCS: 36415; 80053; 80061; 82140; 83036; 83735; 83880; 84439; 84443; 85025; 85610

== ENCOUNTER 2022-03-18 10:08 | Day surgery (SDC) | payer OTHER ==
[2022-03-18 10:54] VITALS: TEMP 98.1
[2022-03-18 11:11] LABS: Mean Platelet Volume 9.4
[2022-03-18] MEDS: ALBUMIN HUMAN 25% 50 ML in EMPTY BAG 1 BAG IVPB SCH ×4 (11:11→12:18)
[2022-03-18 11:17] LABS: Platelet Count 55 k/uL (150-450)
[2022-03-18 11:28] LABS: African American GFR (CKD) >90 (>60 ml/min/1.73 sqM); Non-African American GFR(CKD) >90 (>60 ml/min/1.73 sqM)
[2022-03-18 11:40] LABS: INR 1.3 (<1.2); Prothrombin Time 13.5 sec (9.0-12.0)
[2022-03-18 12:39] VITALS: RESP 16
[2022-03-18 13:51] VITALS: BP 109/61; PULSE 77
--- NOTE | 2022-03-18 14:29 | US ---
Ultrasound-guided paracentesis. DATE OF EXAM: 03/18/2022 CLINICAL HISTORY: Ascites The procedure was discussed with the patient. The risks, complications, benefits, and alternatives we re discussed and any questions were answered. Informed consent was obtained. The patient was placed s upine on the ultrasound table and prepped and draped in the usual sterile fashion. All elements of maximal barrier technique were utilized. Under ultrasound guidance, access into the left lower quadrant was obtained, via the paracentesis catheter system and direct ultrasound guidance . Approximately 14.6 liters of straw-colored fluid was removed. The patient was stable throughout the p rocedure and remained stable upon discharge from Department of Radiology. IMPRESSION: Successful paracentesis under ultrasound guidance.
== END 2022-03-18 14:05 | disposition home or self-care (01) ==
LOC: RADPROMAIN 10:08
PROVIDERS: ATTEND Internal Medicine
DX: R18.8 Other ascites (principal)
CPT/HCPCS: 82565; 85049; 85610; 36415; 49083; P9047

== ENCOUNTER 2022-03-19 08:59 | Day surgery (SDC) | payer OTHER ==
[2022-03-14 10:55] VITALS: BMI 31.2
[~2022-03-19 08:59] MED LIST: LACTATED RINGERS 1,000 ML IV SCH
[2022-03-19 09:40] VITALS: RESP 16; TEMP 97.9
[2022-03-19] MEDS ORDERED: LIDOCAINE 1% (10MG/ML) FOR IV START INTRADERMA ONE (10:08)
[2022-03-19] MEDS ORDERED: LIDOCAINE 2% INJ 20 MG/ML (2 ML VIAL) ONE (10:10)
[2022-03-19] MEDS ORDERED: PROPOFOL 10 MG/ML 20 ML VIAL IV ONE (10:10)
--- NOTE | 2022-03-19 10:19 | P.GSHP ---
History of Present Illness H&P Date: 03/19/22 Chief Complaint: Colon cancer screening 61-year-old male here today for colonoscopy. He has not had 1 previously. No bowel complaints. No family history of colon cancer. Patient does have cirrhosis with ascites. Had paracentesis yesterday. Past Medical History Past Medical History: Hypertension, Liver Disease, Pneumonia Additional Past Medical History / Comment(s): Liver cirrhosis, splenomegaly, pancreatitis-pt states pancreatitis was side effect from Lisinopril, pt denies hx of alcoholism/drinking heavily, cellulitis with sepsis, ASCITES History of Any Multi-Drug Resistant Organisms: None Reported Past Surgical History: No Surgical Hx Reported Additional Past Surgical History / Comment(s): Pt has never had surgery. Past Anesthesia/Blood Transfusion Reactions: No Reported Reaction, Unable to Obtain Additional Past Anesthesia/Blood Transfusion Reaction / Comment(s): Pt has never had anesthesia Past Psychological History: No Psychological Hx Reported Additional Psychological History / Comment(s): He uses a cane to ambulate. He can drive and states he is indpendent. Smoking Status: Never smoker Past Alcohol Use History: None Reported Past Drug Use History: None Reported - Past Family History Mother Family Medical History: Hypertension Additional Family Medical History / Comment(s): Mother lived to be 91 yrs old. Father Family Medical History: CVA/TIA Additional Family Medical History / Comment(s): Father of a CVA at the age of 65yrs. Son(s) Family Medical History: No Reported History Daughter(s) Family Medical History: No Reported History Medications and Allergies Home Medications Medication Instructions Recorded Confirmed Type traZODone HCL [Desyrel] 100 mg PO HS 06/18/21 03/18/22 History Pantoprazole [Protonix] 40 mg PO AC-BRKFST tab 06/22/21 03/18/22 Rx Midodrine [ProAmatine] 5 mg PO Q8H 07/13/21 03/18/22 History Folic Acid 1 mg PO DAILY tab 07/18/21 03/18/22 Rx Furosemide [Lasix] 40 mg PO BID@0900,1600 tab 07/18/21 03/18/22 Rx Potassium Chloride ER [K-Dur 20] 20 meq PO DAILY tablet 07/18/21 03/18/22 Rx Sertraline [Zoloft] 50 mg PO HS tab 07/18/21 03/18/22 Rx Spironolactone [Aldactone] 50 mg PO BID tab 07/18/21 03/18/22 Rx Allergies Allergy/AdvReac Type Severity Reaction Status Date / Time lisinopril AdvReac causes Verified 03/19/22 09:38 pancreatitis Surgical - Exam Vital Signs Temp Pulse Resp BP Pulse Ox 97.9 F 83 16 140/71 97 03/19/22 09:38 03/19/22 09:38 03/19/22 09:38 03/19/22 09:38 03/19/22 09:38 Physical exam: General: Well-developed, well-nourished HEENT: Normocephalic, sclerae nonicteric Abdomen: Nontender, mild distention, reducible umbilical hernia present Extremities: No edema Neuro: Alert and oriented Assessment and Plan (1) Colon cancer screening Narrative/Plan: Will proceed with colonoscopy Current Visit: Yes Status: Acute Code(s): Z12.11 - ENCOUNTER FOR SCREENING FOR MALIGNANT NEOPLASM OF COLON SNOMED Code(s): 636465388
--- NOTE | 2022-03-19 10:34 | P.PCN ---
Date of Procedure: 03/19/22 Procedure(s) Performed: PREOPERATIVE DIAGNOSIS: Colon cancer screening POSTOPERATIVE DIAGNOSIS: Normal exam PROCEDURE: Colonoscopy ANESTHESIA: MAC SURGEON: Silvestre Lester M.D. SPECIMENS: None ENDOSCOPIC PROCEDURE: The patient was placed on the endoscopy table in the left decubitus position. The Olympus colonoscope was inserted into the anus and passed under direct visualization to the base of the cecum. The appendiceal orifice was visualized. From that point the scope was slowly withdrawn inspecti ng all surfaces carefully. There were no neoplastic inflammatory or polypoid lesions throughout the cecum, ascending, transverse, descending, sigmoid and rectum. There was no visible diverticulosis noted. Digital rectal examination was normal. The patient was taken to the recovery room in stable condition per anesthesia guidelines. RECOMMENDATIONS: Resume diet. Patient with umbilical hernia. Patient with cirrhosis and ascites. Continue observation for now. Recommend abdominal binder to protect the patient's umbilical hernia skin.
[2022-03-19 10:59] VITALS: BP 126/72; PULSE 77
== END 2022-03-19 11:30 | disposition home or self-care (01) ==
LOC: ORWHC2ENDO 08:59
PROVIDERS: ATTEND Surgery
DX: Z12.11 Encounter for screening for malignant neoplasm of colon (principal); K74.60 Unspecified cirrhosis of liver; A41.9 Sepsis, unspecified organism; R18.8 Other ascites; K42.9 Umbilical hernia without obstruction or gangrene; I10 Essential (primary) hypertension; J18.9 Pneumonia, unspecified organism; R16.1 Splenomegaly, not elsewhere classified; Z87.19 Personal history of other diseases of the digestive system; Z82.49 Family history of ischemic heart disease and other diseases of the circulatory system; F10.188 Alcohol abuse with other alcohol-induced disorder; Z88.8 Allergy status to other drugs, medicaments and biological substances; Z79.01 Long term (current) use of anticoagulants; Z79.83 Long term (current) use of bisphosphonates; Z79.899 Other long term (current) drug therapy
CPT/HCPCS: 45378; J2704; J2001; G0121

== ENCOUNTER 2022-04-03 07:51 | Day surgery (SDC) | payer OTHER ==
[2022-04-03 08:40] VITALS: TEMP 98.3
[2022-04-03 08:47] LABS: Mean Platelet Volume 9.1
[2022-04-03 08:57] LABS: Platelet Count 56 k/uL (150-450)
[2022-04-03 08:58] LABS: INR 1.4 (<1.2)
[2022-04-03 09:00] LABS: African American GFR (CKD) >90 (>60 ml/min/1.73 sqM); Non-African American GFR(CKD) >90 (>60 ml/min/1.73 sqM)
[2022-04-03] MEDS: ALBUMIN HUMAN 25% 50 ML in EMPTY BAG 1 BAG IVPB SCH ×4 (09:27→10:21)
[2022-04-03 09:34] VITALS: RESP 16
[2022-04-03] MEDS ORDERED: ALBUMIN HUMAN 25% 50 ML in EMPTY BAG 1 BAG IVPB ONE (10:59)
[2022-04-03 11:56] VITALS: BP 115/73; PULSE 72
--- NOTE | 2022-04-03 13:15 | US ---
EXAMINATION TYPE: US paracentesis abd w/image DATE OF EXAM: 04/03/2022 CLINICAL HISTORY: Cirrhosis with ascites The procedure was discussed with the patient. The risks, complications, benefits, and alternatives we re discussed and any questions were answered. Informed consent was obtained. The patient was placed s upine on the ultrasound table and prepped and draped in the usual sterile fashion. All elements of maximal barrier technique were utilized. An appropriate site in the right lower quad rant was marked for access. Approximately 17.4 liters of straw-colored fluid was removed. The patient was stable throughout the p rocedure and remained stable upon discharge from Department of Radiology. IMPRESSION: Successful therapeutic paracentesis under ultrasound guidance.
== END 2022-04-03 11:45 | disposition home or self-care (01) ==
LOC: RADPROMAIN 07:51
PROVIDERS: ATTEND Internal Medicine
DX: R18.8 Other ascites (principal); K74.60 Unspecified cirrhosis of liver
CPT/HCPCS: 82565; 85049; 85610; 36415; 49083; P9047

== ENCOUNTER 2022-04-17 07:48 | Day surgery (SDC) | payer OTHER ==
[2022-04-17 08:33] LABS: Mean Platelet Volume 8.2
[2022-04-17 08:37] LABS: Platelet Count 72 k/uL (150-450)
[2022-04-17 08:39] LABS: INR 1.4 (<1.2); Prothrombin Time 13.8 sec (9.0-12.0)
[2022-04-17 08:47] VITALS: TEMP 98
[2022-04-17 08:47] LABS: African American GFR (CKD) >90 (>60 ml/min/1.73 sqM); Non-African American GFR(CKD) >90 (>60 ml/min/1.73 sqM)
[2022-04-17] MEDS: ALBUMIN HUMAN 25% 50 ML in EMPTY BAG 1 BAG IVPB SCH ×4 (09:34→10:28)
[2022-04-17 12:12] VITALS: BP 116/69; PULSE 78; RESP 18
--- NOTE | 2022-04-17 12:50 | US ---
Ultrasound-guided paracentesis. DATE OF EXAM: 04/17/2022 CLINICAL HISTORY: Ascites The procedure was discussed with the patient. The risks, complications, benefits, and alternatives we re discussed and any questions were answered. Informed consent was obtained. The patient was placed s upine on the ultrasound table and prepped and draped in the usual sterile fashion. All elements of maximal barrier technique were utilized. Under ultrasound guidance, access into the right lower quadrant was obtained, via the paracentesis catheter system and direct ultrasound guidanc e. Approximately 17 liters of straw-colored fluid was removed. The patient was stable throughout the pro cedure and remained stable upon discharge from Department of Radiology. IMPRESSION: Successful paracentesis under ultrasound guidance.
== END 2022-04-17 11:55 | disposition home or self-care (01) ==
LOC: RADPROMAIN 07:48
PROVIDERS: ATTEND Internal Medicine
DX: R18.8 Other ascites (principal)
CPT/HCPCS: 82565; 85049; 85610; 36415; 49083; P9047

== ENCOUNTER 2022-04-24 07:54 | Day surgery (SDC) | payer OTHER ==
[2022-04-24 08:35] VITALS: RESP 16; TEMP 98
[2022-04-24 08:35] LABS: Mean Platelet Volume 8.3
[2022-04-24 08:44] LABS: African American GFR (CKD) >90 (>60 ml/min/1.73 sqM); Non-African American GFR(CKD) >90 (>60 ml/min/1.73 sqM)
[2022-04-24 08:45] LABS: Platelet Count 62 k/uL (150-450)
[2022-04-24 08:50] LABS: INR 1.3 (<1.2)
[2022-04-24] MEDS: ALBUMIN HUMAN 25% 50 ML in EMPTY BAG 1 BAG IVPB SCH ×4 (08:51→09:45)
[2022-04-24 10:59] VITALS: BP 115/65; PULSE 72
--- NOTE | 2022-04-24 13:39 | US ---
Ultrasound-guided paracentesis. DATE OF EXAM: 04/24/2022 CLINICAL HISTORY: Ascites The procedure was discussed with the patient. The risks, complications, benefits, and alternatives we re discussed and any questions were answered. Informed consent was obtained. The patient was placed s upine on the ultrasound table and prepped and draped in the usual sterile fashion. All elements of maximal barrier technique were utilized. Under ultrasound guidance, access into the right lower quadrant was obtained, via the paracentesis catheter system and direct ultrasound guidanc e. Approximately 13.9 liters of straw-colored fluid was removed. The patient was stable throughout the p rocedure and remained stable upon discharge from Department of Radiology. IMPRESSION: Successful paracentesis under ultrasound guidance.
== END 2022-04-24 10:55 | disposition home or self-care (01) ==
LOC: RADPROMAIN 07:54
PROVIDERS: ATTEND Internal Medicine
DX: R18.8 Other ascites (principal)
CPT/HCPCS: 82565; 85049; 85610; 36415; 49083; P9047

== ENCOUNTER 2022-05-01 07:45 | Day surgery (SDC) | payer OTHER ==
[2022-05-01 09:15] VITALS: RESP 18; TEMP 97.9
[2022-05-01] MEDS: ALBUMIN HUMAN 25% 50 ML in EMPTY BAG 1 BAG IVPB SCH ×4 (09:40→10:31)
[2022-05-01 11:28] VITALS: BP 135/61; PULSE 74
--- NOTE | 2022-05-01 13:09 | US ---
EXAMINATION TYPE: US paracentesis abd w/image DATE OF EXAM: 05/01/2022 CLINICAL HISTORY: Ascites The procedure was discussed with the patient. The risks, complications, benefits, and alternatives we re discussed and any questions were answered. Informed consent was obtained. The patient was placed s upine on the ultrasound table and prepped and draped in the usual sterile fashion. All elements of maximal barrier technique were utilized. Ultrasound was used to aman an appropriate s ite in the right lower quadrant. [place] II the ascites was obtained with a paracentesis catheter. Approximately 8.8 liters of straw-colored fluid was removed. The patient was stable throughout the pr ocedure and remained stable upon discharge from Department of Radiology. IMPRESSION: Successful therapeutic paracentesis under ultrasound guidance.
== END 2022-05-01 11:10 | disposition home or self-care (01) ==
LOC: RADPROMAIN 07:45
PROVIDERS: ATTEND Internal Medicine
DX: R18.8 Other ascites (principal)
CPT/HCPCS: 36415; 49083; P9047

== ENCOUNTER 2022-05-08 07:38 | Day surgery (SDC) | payer OTHER ==
[2022-05-08 08:35] VITALS: RESP 16; TEMP 98
[2022-05-08 08:46] LABS: Mean Platelet Volume 7.9
[2022-05-08 08:53] LABS: Platelet Count 69 k/uL (150-450)
[2022-05-08 08:58] LABS: African American GFR (CKD) >90 (>60 ml/min/1.73 sqM); Non-African American GFR(CKD) >90 (>60 ml/min/1.73 sqM)
[2022-05-08 09:01] LABS: INR 1.3 (<1.2); Prothrombin Time 13.3 sec (9.0-12.0)
[2022-05-08] MEDS: ALBUMIN HUMAN 25% 50 ML in EMPTY BAG 1 BAG IVPB SCH ×4 (09:19→10:04)
[2022-05-08 10:48] VITALS: BP 114/66; PULSE 76
--- NOTE | 2022-05-08 12:35 | US ---
Ultrasound-guided paracentesis. DATE OF EXAM: 05/08/2022 CLINICAL HISTORY: Ascites The procedure was discussed with the patient. The risks, complications, benefits, and alternatives we re discussed and any questions were answered. Informed consent was obtained. The patient was placed s upine on the ultrasound table and prepped and draped in the usual sterile fashion. All elements of maximal barrier technique were utilized. Under ultrasound guidance, access into the right lower quadrant was obtained, via the paracentesis catheter system and direct ultrasound guidanc e. Approximately 13.5 liters of straw-colored fluid was removed. The patient was stable throughout the p rocedure and remained stable upon discharge from Department of Radiology. IMPRESSION: Successful paracentesis under ultrasound guidance.
== END 2022-05-08 11:00 | disposition home or self-care (01) ==
LOC: RADPROMAIN 07:38
PROVIDERS: ATTEND Internal Medicine
DX: R18.8 Other ascites (principal)
CPT/HCPCS: 82565; 85049; 85610; 36415; 49083; P9047

== ENCOUNTER 2022-06-19 07:56 | Day surgery (SDC) | payer OTHER ==
[2022-06-19 08:48] LABS: Mean Platelet Volume 7.9
[2022-06-19 08:51] VITALS: TEMP 98.1
[2022-06-19 08:55] LABS: Platelet Count 60 k/uL (150-450)
[2022-06-19 08:57] LABS: INR 1.2 (<1.2); Prothrombin Time 12.4 sec (9.0-12.0)
[2022-06-19 09:04] LABS: African American GFR (CKD) >90 (>60 ml/min/1.73 sqM); Non-African American GFR(CKD) >90 (>60 ml/min/1.73 sqM)
[2022-06-19] MEDS: ALBUMIN HUMAN 25% 50 ML in EMPTY BAG 1 BAG IVPB SCH ×4 (09:26→10:11)
[2022-06-19 09:50] VITALS: RESP 16
[2022-06-19 11:10] VITALS: BP 100/70; PULSE 76
--- NOTE | 2022-06-19 11:23 | US ---
Ultrasound-guided paracentesis. DATE OF EXAM: 06/19/2022 CLINICAL HISTORY: Ascites The procedure was discussed with the patient. The risks, complications, benefits, and alternatives we re discussed and any questions were answered. Informed consent was obtained. The patient was placed s upine on the ultrasound table and prepped and draped in the usual sterile fashion. All elements of maximal barrier technique were utilized. Under ultrasound guidance, access into the right lower quadrant was obtained, via the paracentesis catheter system and direct ultrasound guidanc e. Approximately 12.5 liters of straw-colored fluid was removed. The patient was stable throughout the p rocedure and remained stable upon discharge from Department of Radiology. IMPRESSION: Successful paracentesis under ultrasound guidance.
== END 2022-06-19 11:00 | disposition home or self-care (01) ==
LOC: RADPROMAIN 07:56
PROVIDERS: ATTEND Internal Medicine
DX: R18.8 Other ascites (principal)
CPT/HCPCS: 82565; 85049; 85610; 36415; 49083; P9047

== ENCOUNTER 2022-06-26 07:40 | Day surgery (SDC) | payer OTHER ==
[2022-06-26 08:59] VITALS: RESP 16; TEMP 97.8
[2022-06-26 08:59] LABS: African American GFR (CKD) >90 (>60 ml/min/1.73 sqM); Non-African American GFR(CKD) >90 (>60 ml/min/1.73 sqM)
[2022-06-26 09:03] LABS: Platelet Count 55 k/uL (150-450)
[2022-06-26 09:20] LABS: INR 1.3 (<1.2)
[2022-06-26] MEDS: ALBUMIN HUMAN 25% 50 ML in EMPTY BAG 1 BAG IVPB SCH ×4 (10:12→10:54)
[2022-06-26 11:39] VITALS: BP 116/57; PULSE 76
--- NOTE | 2022-06-26 13:26 | US ---
Ultrasound-guided paracentesis. DATE OF EXAM: 06/26/2022 CLINICAL HISTORY: Ascites The procedure was discussed with the patient. The risks, complications, benefits, and alternatives we re discussed and any questions were answered. Informed consent was obtained. The patient was placed s upine on the ultrasound table and prepped and draped in the usual sterile fashion. All elements of maximal barrier technique were utilized. Under ultrasound guidance, access into the right lower quadrant was obtained, via the paracentesis catheter system and direct ultrasound guidanc e. The patient was stable throughout the procedure and remained stable upon discharge from Department of Radiology. IMPRESSION: Successful paracentesis under ultrasound guidance.
== END 2022-06-26 11:45 | disposition home or self-care (01) ==
LOC: RADPROMAIN 07:40
PROVIDERS: ATTEND Internal Medicine
DX: R18.8 Other ascites (principal)
CPT/HCPCS: 82565; 85049; 85610; 36415; 49083; P9047

== ENCOUNTER 2022-07-03 07:46 | Day surgery (SDC) | payer OTHER ==
[2022-07-03 08:57] LABS: Mean Platelet Volume 8.1
[2022-07-03 09:03] LABS: African American GFR (CKD) >90 (>60 ml/min/1.73 sqM); Non-African American GFR(CKD) >90 (>60 ml/min/1.73 sqM)
[2022-07-03 09:06] VITALS: RESP 16; TEMP 97.8
[2022-07-03 09:06] LABS: Platelet Count 48 k/uL (150-450)
[2022-07-03 09:18] LABS: INR 1.3 (<1.2); Prothrombin Time 13.3 sec (9.0-12.0)
[2022-07-03] MEDS: ALBUMIN HUMAN 25% 50 ML in EMPTY BAG 1 BAG IVPB SCH ×4 (09:50→10:40)
--- NOTE | 2022-07-03 11:20 | US ---
Ultrasound-guided paracentesis. DATE OF EXAM: 07/03/2022 CLINICAL HISTORY: Ascites The procedure was discussed with the patient. The risks, complications, benefits, and alternatives we re discussed and any questions were answered. Informed consent was obtained. The patient was placed s upine on the ultrasound table and prepped and draped in the usual sterile fashion. All elements of maximal barrier technique were utilized. Under ultrasound guidance, access into the right lower quadrant was obtained, via the paracentesis catheter system and direct ultrasound guidanc e. Approximately 12 liters of straw-colored fluid was removed. The patient was stable throughout the pro cedure and remained stable upon discharge from Department of Radiology. IMPRESSION: Successful paracentesis under ultrasound guidance.
[2022-07-03 11:33] VITALS: BP 123/71; PULSE 70
== END 2022-07-03 11:30 | disposition home or self-care (01) ==
LOC: RADPROMAIN 07:46
PROVIDERS: ATTEND Internal Medicine
DX: R18.8 Other ascites (principal)
CPT/HCPCS: 82565; 85049; 85610; 36415; 49083; P9047

== ENCOUNTER 2022-07-10 08:05 | Day surgery (SDC) | payer OTHER ==
[2022-07-10 08:59] LABS: INR 1.4 (<1.2); Mean Platelet Volume 8.1; Prothrombin Time 14.2 sec (9.0-12.0)
[2022-07-10 09:11] LABS: Platelet Count 64 k/uL (150-450)
[2022-07-10 09:17] LABS: African American GFR (CKD) >90 (>60 ml/min/1.73 sqM); Non-African American GFR(CKD) >90 (>60 ml/min/1.73 sqM)
[2022-07-10] MEDS: ALBUMIN HUMAN 25% 50 ML in EMPTY BAG 1 BAG IVPB SCH ×4 (09:24→11:01)
[2022-07-10 10:02] VITALS: RESP 16; TEMP 98.5
--- NOTE | 2022-07-10 11:37 | US ---
Ultrasound-guided paracentesis. DATE OF EXAM: 07/10/2022 CLINICAL HISTORY: Ascites The procedure was discussed with the patient. The risks, complications, benefits, and alternatives we re discussed and any questions were answered. Informed consent was obtained. The patient was placed s upine on the ultrasound table and prepped and draped in the usual sterile fashion. All elements of maximal barrier technique were utilized. Under ultrasound guidance, access into the left lower quadrant was obtained, via the paracentesis catheter system and direct ultrasound guidance . The patient was stable throughout the procedure and remained stable upon discharge from Department of Radiology. IMPRESSION: Successful paracentesis under ultrasound guidance.
[2022-07-10 11:58] VITALS: BP 98/61; PULSE 77
== END 2022-07-10 11:35 | disposition home or self-care (01) ==
LOC: RADPROMAIN 08:05
PROVIDERS: ATTEND Internal Medicine
DX: R18.8 Other ascites (principal)
CPT/HCPCS: 82565; 85049; 85610; 36415; 49083; P9047

== ENCOUNTER 2022-07-12 08:59 | Day surgery (SDC) | payer OTHER ==
[2022-07-12] MEDS ORDERED: LIDOCAINE 1% (10MG/ML) FOR IV START INTRADERMA ONE (09:40)
[2022-07-12 09:41] VITALS: TEMP 97.5
[2022-07-12] MEDS ORDERED: PROPOFOL 10 MG/ML 20 ML VIAL IV ONE (09:49)
--- NOTE | 2022-07-12 09:59 | P.PCN ---
Date of Procedure: 07/12/22 Procedure(s) Performed: BRIEF HISTORY: Patient is a 62-year-old, pleasant, white male with history of alcoholic cirrhosis of the liver diagnosed in November 2021. He has refractory ascites requiring paracentesis on a weekly basis. He scheduled for an upper endoscopy to evaluate for esophageal varices. PROCEDURE PERFORMED: Esophagogastroduodenoscopy with biopsy. PREOPERATIVE DIAGNOSIS: History of alcoholic cirrhosis of the liver, screening for esophageal varices. IV sedation per anesthesia. PROCEDURE: After informed consent was obtained, the patient was brought into the endoscopy unit. IV sedation was administered by Anesthesia under continuous monitoring. Initially the Olympus GIF-140 video endoscope was inserted into the mouth. Esophagus intubated without any difficulty. It was gradually advanced into the stomach and duodenum and carefully examined. The bulb and the second part of the duodenum appeared normal. The scope at this time was withdrawn to the stomach, adequately insufflated with air, and upon careful examination, mucosa of the antrum, body, cardia and the fundus had changes consistent with [id number]: Hypertensive gastropathy. No gastric varices seen. normal. The scope was then withdrawn into the esophagus. The GE junction was located at 39 cm from the incisors. There were no esophageal varices seen. There were whitish plaques noted throughout the entire esophagus consistent with [place] esophagitis. Biopsies were done from the esophagus and the patient tolerated the procedure well. IMPRESSION: 1. Whitish plaques throughout the entire esophagus consistent with [place] esophagitis. 2. No evidence of gastric or esophageal varices 3. Mild portal hypertensive gastropathy RECOMMENDATIONS: The findings of this examination were discussed with the patient as well as his family. He will be given a prescription for oral nystatin swish and swallow for 7 days. Recommend repeat EGD in 2-3 years to screen for esophageal varices
[2022-07-12 10:20] VITALS: BP 112/70; PULSE 84; RESP 18
== END 2022-07-12 11:12 | disposition home or self-care (01) ==
LOC: ORWHC2ENDO 08:59
PROVIDERS: ATTEND Internal Medicine Gastroenterology
DX: B37.81 Candidal esophagitis (principal); K31.89 Other diseases of stomach and duodenum; K76.6 Portal hypertension; K70.31 Alcoholic cirrhosis of liver with ascites; K20.90 Esophagitis, unspecified without bleeding; Z88.8 Allergy status to other drugs, medicaments and biological substances; F10.20 Alcohol dependence, uncomplicated; I10 Essential (primary) hypertension; R16.1 Splenomegaly, not elsewhere classified; Z79.1 Long term (current) use of non-steroidal anti-inflammatories (NSAID); Z79.899 Other long term (current) drug therapy
CPT/HCPCS: 88305; 43239; J2704

== ENCOUNTER 2022-07-17 07:56 | Day surgery (SDC) | payer OTHER ==
[2022-07-17 08:35] LABS: Mean Platelet Volume 7.8
[2022-07-17 08:38] VITALS: TEMP 98.6
[2022-07-17 08:48] LABS: African American GFR (CKD) >90 (>60 ml/min/1.73 sqM); Non-African American GFR(CKD) >90 (>60 ml/min/1.73 sqM)
[2022-07-17 08:50] LABS: Platelet Count 54 k/uL (150-450)
[2022-07-17 08:53] LABS: INR 1.3 (<1.2); Prothrombin Time 12.8 sec (9.0-12.0)
[2022-07-17] MEDS: ALBUMIN HUMAN 25% 50 ML in EMPTY BAG 1 BAG IVPB SCH ×4 (09:10→10:30)
--- NOTE | 2022-07-17 09:52 | US ---
Ultrasound-guided paracentesis. DATE OF EXAM: 07/17/2022 CLINICAL HISTORY: Ascites The procedure was discussed with the patient. The risks, complications, benefits, and alternatives we re discussed and any questions were answered. Informed consent was obtained. The patient was placed s upine on the ultrasound table and prepped and draped in the usual sterile fashion. All elements of maximal barrier technique were utilized. Under ultrasound guidance, access into the right lower quadrant was obtained, via the paracentesis catheter system and direct ultrasound guidanc e. The patient was stable throughout the procedure and remained stable upon discharge from Department of Radiology. IMPRESSION: Successful paracentesis under ultrasound guidance.
[2022-07-17 10:40] VITALS: BP 109/54; PULSE 79; RESP 16
== END 2022-07-17 10:38 | disposition home or self-care (01) ==
LOC: RADPROMAIN 07:56
PROVIDERS: ATTEND Internal Medicine
DX: K70.31 Alcoholic cirrhosis of liver with ascites (principal)
CPT/HCPCS: 82565; 85049; 85610; 36415; 49083; P9047

== ENCOUNTER 2022-07-24 12:06 | Day surgery (SDC) | payer OTHER ==
[2022-07-24 12:56] VITALS: TEMP 98.9
[2022-07-24 13:12] LABS: African American GFR (CKD) >90 (>60 ml/min/1.73 sqM); Mean Platelet Volume 7.8; Non-African American GFR(CKD) >90 (>60 ml/min/1.73 sqM)
[2022-07-24 13:14] LABS: Platelet Count 59 k/uL (150-450)
[2022-07-24 13:21] LABS: INR 1.3 (<1.2); Prothrombin Time 13.6 sec (9.0-12.0)
[2022-07-24] MEDS: ALBUMIN HUMAN 25% 50 ML in EMPTY BAG 1 BAG IVPB SCH ×4 (13:57→14:53)
[2022-07-24 14:28] VITALS: RESP 16
[2022-07-24 14:59] VITALS: BP 106/54; PULSE 74
--- NOTE | 2022-07-25 08:02 | US ---
Ultrasound-guided paracentesis. DATE OF EXAM: 07/24/2022 CLINICAL HISTORY: Ascites The procedure was discussed with the patient. The risks, complications, benefits, and alternatives we re discussed and any questions were answered. Informed consent was obtained. The patient was placed s upine on the ultrasound table and prepped and draped in the usual sterile fashion. All elements of maximal barrier technique were utilized. Under ultrasound guidance, access into the peritoneal cavity was obtained, via the paracentesis catheter system. Clear, serous fluid was removed. The patient was stable throughout the procedure and remained stable upon discharge from Department of Radiology. IMPRESSION: Successful paracentesis under ultrasound guidance.
== END 2022-07-24 15:15 | disposition home or self-care (01) ==
LOC: RADPROMAIN 12:06
PROVIDERS: ATTEND Internal Medicine
DX: R18.8 Other ascites (principal)
CPT/HCPCS: 82565; 85049; 85610; 36415; 49083; P9047

== ENCOUNTER 2022-07-31 08:01 | Day surgery (SDC) | payer OTHER ==
[2022-07-31 08:47] LABS: Mean Platelet Volume 8.1
[2022-07-31 08:50] VITALS: TEMP 98.4
[2022-07-31 09:02] LABS: Platelet Count 62 k/uL (150-450)
[2022-07-31 09:10] LABS: INR 1.4 (<1.2); Prothrombin Time 14.1 sec (9.0-12.0)
[2022-07-31] MEDS: ALBUMIN HUMAN 25% 50 ML in EMPTY BAG 1 BAG IVPB SCH ×4 (09:25→10:14)
[2022-07-31 09:47] VITALS: RESP 16
--- NOTE | 2022-07-31 10:22 | US ---
Ultrasound-guided paracentesis. DATE OF EXAM: 07/31/2022 CLINICAL HISTORY: Ascites The procedure was discussed with the patient. The risks, complications, benefits, and alternatives we re discussed and any questions were answered. Informed consent was obtained. The patient was placed s upine on the ultrasound table and prepped and draped in the usual sterile fashion. All elements of maximal barrier technique were utilized. Under ultrasound guidance, access into the right lower quadrant was obtained, via the paracentesis catheter system and direct ultrasound guidanc e. The patient was stable throughout the procedure and remained stable upon discharge from Department of Radiology. IMPRESSION: Successful paracentesis under ultrasound guidance.
[2022-07-31 11:07] VITALS: BP 106/71; PULSE 69
== END 2022-07-31 10:40 | disposition home or self-care (01) ==
LOC: RADPROMAIN 08:01
PROVIDERS: ATTEND Internal Medicine
DX: R18.8 Other ascites (principal)
CPT/HCPCS: 82565; 85049; 85610; 36415; 49083; P9047

== ENCOUNTER 2022-08-07 08:02 | Day surgery (SDC) | payer OTHER ==
[2022-08-07 08:42] LABS: Mean Platelet Volume 8.5
[2022-08-07 08:51] LABS: African American GFR (CKD) >90 (>60 ml/min/1.73 sqM); Non-African American GFR(CKD) 90 (>60 ml/min/1.73 sqM)
[2022-08-07 08:53] LABS: INR 1.3 (<1.2); Prothrombin Time 13.2 sec (9.0-12.0)
[2022-08-07 08:54] LABS: Platelet Count 68 k/uL (150-450)
[2022-08-07] MEDS: ALBUMIN HUMAN 25% 50 ML in EMPTY BAG 1 BAG IVPB SCH ×2 (09:15→09:39)
[2022-08-07 09:35] VITALS: RESP 18
[2022-08-07 11:48] VITALS: BP 103/65; PULSE 74
--- NOTE | 2022-08-07 12:38 | US ---
Ultrasound-guided paracentesis. DATE OF EXAM: 08/07/2022 CLINICAL HISTORY: ascites The procedure was discussed with the patient. The risks, complications, benefits, and alternatives we re discussed and any questions were answered. Informed consent was obtained. The patient was placed s upine on the ultrasound table and prepped and draped in the usual sterile fashion. All elements of maximal barrier technique were utilized. Under ultrasound guidance, access into the right lower quadrant was obtained, via the paracentesis catheter system and direct ultrasound guidanc e. Approximately 10.2 liters of straw-colored fluid was removed. The patient was stable throughout the p rocedure and remained stable upon discharge from Department of Radiology. IMPRESSION: Successful paracentesis under ultrasound guidance.
== END 2022-08-07 11:40 | disposition home or self-care (01) ==
LOC: RADPROMAIN 08:02
PROVIDERS: ATTEND Internal Medicine
DX: R18.8 Other ascites (principal)
CPT/HCPCS: 36415; 49083; 82565; 85049; 85610

== ENCOUNTER 2022-08-14 08:05 | Day surgery (SDC) | payer OTHER ==
[2022-08-14 08:46] VITALS: RESP 16; TEMP 98
[2022-08-14 09:05] LABS: Mean Platelet Volume 7.7
[2022-08-14 09:13] LABS: INR 1.3 (<1.2); Prothrombin Time 13.1 sec (9.0-12.0)
[2022-08-14 09:17] LABS: Platelet Count 75 k/uL (150-450)
[2022-08-14] MEDS: ALBUMIN HUMAN 25% 50 ML in EMPTY BAG 1 BAG IVPB SCH ×4 (09:48→10:34)
[2022-08-14 10:59] VITALS: BP 103/59; PULSE 69
--- NOTE | 2022-08-14 11:21 | US ---
Ultrasound-guided paracentesis. DATE OF EXAM: 08/14/2022 CLINICAL HISTORY: Ascites The procedure was discussed with the patient. The risks, complications, benefits, and alternatives we re discussed and any questions were answered. Informed consent was obtained. The patient was placed s upine on the ultrasound table and prepped and draped in the usual sterile fashion. All elements of maximal barrier technique were utilized. Under ultrasound guidance, access into the right lower quadrant was obtained, via the paracentesis catheter system and direct ultrasound guidanc e. Approximately 10.3 liters of straw-colored fluid was removed. The patient was stable throughout the p rocedure and remained stable upon discharge from Department of Radiology. IMPRESSION: Successful paracentesis under ultrasound guidance.
== END 2022-08-14 11:15 | disposition home or self-care (01) ==
LOC: RADPROMAIN 08:05
PROVIDERS: ATTEND Internal Medicine
DX: R18.8 Other ascites (principal)
CPT/HCPCS: 82565; 85049; 85610; 36415; 49083; P9047

== ENCOUNTER 2022-08-21 08:04 | Day surgery (SDC) | payer OTHER ==
[2022-08-21 08:43] LABS: Mean Platelet Volume 8.2
[2022-08-21 08:47] LABS: Platelet Count 71 k/uL (150-450)
[2022-08-21 08:49] LABS: INR 1.3 (<1.2)
[2022-08-21 08:54] VITALS: RESP 16; TEMP 98.2
[2022-08-21 09:07] LABS: African American GFR (CKD) >90 (>60 ml/min/1.73 sqM); Non-African American GFR(CKD) >90 (>60 ml/min/1.73 sqM)
[2022-08-21] MEDS: ALBUMIN HUMAN 25% 50 ML in EMPTY BAG 1 BAG IVPB SCH ×4 (09:15→10:18)
[2022-08-21 11:45] VITALS: BP 102/58; PULSE 72
--- NOTE | 2022-08-21 11:48 | US ---
Ultrasound-guided paracentesis. DATE OF EXAM: 08/21/2022 CLINICAL HISTORY: Ascites The procedure was discussed with the patient. The risks, complications, benefits, and alternatives we re discussed and any questions were answered. Informed consent was obtained. The patient was placed s upine on the ultrasound table and prepped and draped in the usual sterile fashion. All elements of maximal barrier technique were utilized. Under ultrasound guidance, access into the right lower quadrant was obtained, via the paracentesis catheter system and direct ultrasound guidanc e. Approximately 10 liters of straw-colored fluid was removed. The patient was stable throughout the pro cedure and remained stable upon discharge from Department of Radiology. IMPRESSION: Successful paracentesis under ultrasound guidance.
== END 2022-08-21 11:05 | disposition home or self-care (01) ==
LOC: RADPROMAIN 08:04
PROVIDERS: ATTEND Internal Medicine
DX: R18.8 Other ascites (principal)
CPT/HCPCS: 82565; 85049; 85610; 36415; 49083; P9047

== ENCOUNTER 2022-08-28 08:00 | Day surgery (SDC) | payer OTHER ==
[2022-08-28 08:51] LABS: Mean Platelet Volume 7.8
[2022-08-28 08:55] LABS: INR 1.2 (<1.2); Platelet Count 60 k/uL (150-450); Prothrombin Time 12.6 sec (9.0-12.0)
[2022-08-28 09:04] LABS: African American GFR (CKD) >90 (>60 ml/min/1.73 sqM); Non-African American GFR(CKD) >90 (>60 ml/min/1.73 sqM)
[2022-08-28 09:10] VITALS: TEMP 98.1
[2022-08-28] MEDS: ALBUMIN HUMAN 25% 50 ML in EMPTY BAG 1 BAG IVPB SCH ×4 (09:43→10:27)
[2022-08-28 10:04] VITALS: RESP 16
[2022-08-28 11:17] VITALS: BP 104/64; PULSE 75
--- NOTE | 2022-08-28 16:31 | US ---
Ultrasound-guided paracentesis. DATE OF EXAM: 08/28/2022 CLINICAL HISTORY: Ascites. Swelling. Comparison: Study performed one week earlier and older studies. Findings: The procedure was discussed with the patient. The risks, complications, benefits, and alternatives we re discussed and any questions were answered. Informed consent was obtained. The patient was placed s upine on the ultrasound table and prepped and draped in the usual sterile fashion. All elements of maximal barrier technique were utilized. Under ultrasound guidance, access into the right lower quadrant was obtained, via the paracentesis catheter system and direct ultrasound guidanc e. Amount of fluid removed documented by IR nurse. The patient was stable throughout the procedure and r emained stable upon discharge from Department of Radiology. IMPRESSION: Successful paracentesis under ultrasound guidance for therapeutic benefit.
== END 2022-08-28 11:02 | disposition home or self-care (01) ==
LOC: RADPROMAIN 08:00
PROVIDERS: ATTEND Internal Medicine
DX: R18.8 Other ascites (principal)
CPT/HCPCS: 82565; 85049; 85610; 36415; 49083; P9047

== ENCOUNTER 2022-09-04 08:47 | Day surgery (SDC) | payer OTHER ==
[2022-09-04 09:30] LABS: Platelet Count 68 k/uL (150-450)
[2022-09-04 09:41] LABS: African American GFR (CKD) >90 (>60 ml/min/1.73 sqM); Non-African American GFR(CKD) >90 (>60 ml/min/1.73 sqM)
[2022-09-04 09:43] LABS: INR 1.1 (<1.2); Prothrombin Time 11.7 sec (9.0-12.0)
[2022-09-04] MEDS: ALBUMIN HUMAN 25% 50 ML in EMPTY BAG 1 BAG IVPB SCH ×4 (09:52→10:39)
[2022-09-04 11:25] VITALS: RESP 15
--- NOTE | 2022-09-04 11:45 | US ---
Ultrasound-guided paracentesis. DATE OF EXAM: 09/04/2022 CLINICAL HISTORY: Ascites The procedure was discussed with the patient. The risks, complications, benefits, and alternatives we re discussed and any questions were answered. Informed consent was obtained. The patient was placed s upine on the ultrasound table and prepped and draped in the usual sterile fashion. All elements of maximal barrier technique were utilized. Under ultrasound guidance, access into the right lower quadrant was obtained, via the paracentesis catheter system and direct ultrasound guidanc e. Approximately 11 liters of straw-colored fluid was removed. The patient was stable throughout the pro cedure and remained stable upon discharge from Department of Radiology. IMPRESSION: Successful paracentesis under ultrasound guidance.
[2022-09-04 11:55] VITALS: BP 116/77; PULSE 81; TEMP 98
== END 2022-09-04 11:50 | disposition home or self-care (01) ==
LOC: RADPROMAIN 08:47
PROVIDERS: ATTEND Internal Medicine
DX: R18.8 Other ascites (principal)
CPT/HCPCS: 82565; 85049; 85610; 36415; 49083; P9047

== ENCOUNTER 2022-09-12 08:42 | Day surgery (SDC) | payer OTHER ==
[2022-09-12 09:19] LABS: Mean Platelet Volume 7.5
[2022-09-12 09:27] LABS: African American GFR (CKD) >90 (>60 ml/min/1.73 sqM); Non-African American GFR(CKD) >90 (>60 ml/min/1.73 sqM)
[2022-09-12 09:29] LABS: Platelet Count 73 k/uL (150-450)
[2022-09-12 09:32] LABS: INR 1.2 (<1.2)
[2022-09-12 09:33] VITALS: RESP 16; TEMP 98
[2022-09-12] MEDS: ALBUMIN HUMAN 25% 50 ML in EMPTY BAG 1 BAG IVPB SCH ×4 (09:33→10:26)
[2022-09-12 11:16] VITALS: BP 117/59; PULSE 80
--- NOTE | 2022-09-12 14:27 | US ---
Ultrasound-guided paracentesis. DATE OF EXAM: 09/12/2022 CLINICAL HISTORY: Ascites The procedure was discussed with the patient. The risks, complications, benefits, and alternatives we re discussed and any questions were answered. Informed consent was obtained. The patient was placed s upine on the ultrasound table and prepped and draped in the usual sterile fashion. All elements of maximal barrier technique were utilized. Under ultrasound guidance, access into the right lower quadrant was obtained, via the paracentesis catheter system and direct ultrasound guidanc e. Approximately 11 liters of straw-colored fluid was removed. The patient was stable throughout the pro cedure and remained stable upon discharge from Department of Radiology. IMPRESSION: Successful paracentesis under ultrasound guidance.
== END 2022-09-12 11:18 | disposition home or self-care (01) ==
LOC: RADPROMAIN 08:42
PROVIDERS: ATTEND Internal Medicine
DX: R18.8 Other ascites (principal)
CPT/HCPCS: 82565; 85049; 85610; 49083; P9047

== ENCOUNTER 2022-09-17 07:56 | Day surgery (SDC) | payer OTHER ==
[2022-09-17] MEDS: ALBUMIN HUMAN 25% 50 ML in EMPTY BAG 1 BAG IVPB SCH ×4 (08:45→09:30)
[2022-09-17 09:15] VITALS: RESP 18; TEMP 98.3
[2022-09-17 11:07] VITALS: BP 105/67; PULSE 74
--- NOTE | 2022-09-17 11:48 | US ---
Ultrasound-guided paracentesis. DATE OF EXAM: 09/17/2022 CLINICAL HISTORY: Ascites The procedure was discussed with the patient. The risks, complications, benefits, and alternatives we re discussed and any questions were answered. Informed consent was obtained. The patient was placed s upine on the ultrasound table and prepped and draped in the usual sterile fashion. All elements of maximal barrier technique were utilized. Under ultrasound guidance, access into the right lower quadrant was obtained, via the paracentesis catheter system and direct ultrasound guidanc e. Approximately 10 liters of straw-colored fluid was removed. The patient was stable throughout the pro cedure and remained stable upon discharge from Department of Radiology. IMPRESSION: Successful paracentesis under ultrasound guidance.
== END 2022-09-17 11:00 | disposition home or self-care (01) ==
LOC: RADPROMAIN 07:56
PROVIDERS: ATTEND Internal Medicine
DX: R18.8 Other ascites (principal)
CPT/HCPCS: 49083; P9047

== ENCOUNTER 2022-09-18 07:27 | Day surgery (SDC) | payer OTHER ==
[2022-09-16 11:17] VITALS: BMI 26.9
[~2022-09-18 07:27] MED LIST changes: +LIDOCAINE 1% (10MG/ML) FOR IV START INTRADERMA PRN; +MOXIFLOXACIN HCL 0.5% DROPS 3 ML BTL OP PRN; +TETRACAINE 0.5% OPHTH (PF) DROPS 4 ML BTL OP PRN; +TIMOLOL 0.5% OPHTH DROPS 5 ML BTL OP PRN
[2022-09-18] MEDS: CYCLOPENTOLATE 1% OPHTH SOLN 2 ML BTL OP PRN ×3 (08:04→08:16)
[2022-09-18] MEDS: PHENYLEPHRINE 2.5% OPHTH DRP 2ML OP PRN ×3 (08:07→08:14)
[2022-09-18 08:44] VITALS: RESP 16; TEMP 98.1
[2022-09-18] MEDS ORDERED: fentaNYL (PF) 50 MCG/ML 2 ML AMP ONE (09:13)
[2022-09-18] MEDS ORDERED: MIDAZOLAM 2 MG/2 ML VIAL ONE (09:13)
[2022-09-18] MEDS ORDERED: EPINEPHrine (PF) 0.3 ML in BALANCED SALT IRRIG SOLN COMB2 500 ML IRRIGATION ONE (09:29)
[2022-09-18] MEDS ORDERED: BALANCED SALT IRRIG SOLN COMB2 15 ML IRRIG.SOLN INTRAOCULA ONE (09:30)
[2022-09-18] MEDS ORDERED: LIDOCAINE 1% (PF) 10MG/ML VIAL MISCELLANE ONE (09:30)
[2022-09-18] MEDS ORDERED: DUOVISC KIT (GREEN BOX) INTRAOCULA ONE (09:30)
[2022-09-18] MEDS ORDERED: TIMOLOL 0.5% OPHTH DROPS 5 ML BTL RIGHT EYE ONE (09:32)
[2022-09-18] MEDS ORDERED: MOXIFLOXACIN HCL 0.5% DROPS 3 ML BTL RIGHT EYE ONE (09:34)
--- NOTE | 2022-09-18 09:43 | P.OP ---
Date of Procedure: 09/18/22 Preoperative Diagnosis: NS Postoperative Diagnosis: same Procedure(s) Performed: PIOL, OD Implants: [id number] 16.00 Anesthesia: MAC Surgeon: Lance Alvarez Pathology: none sent Condition: stable Disposition: same day Indications for Procedure: blurry vision Operative Findings: no complications
[2022-09-18 10:03] VITALS: BP 127/79; PULSE 78
--- NOTE | 2022-09-18 11:29 | OP ---
OPERATIVE REPORT DATE OF SERVICE : 09/18/2022 PREOPERATIVE DIAGNOSIS: Nuclear sclerosis. POSTOPERATIVE DIAGNOSIS: Nuclear sclerosis. OPERATION: Phacoemulsification of cataract and intraocular intra-ocular lens implant of the right eye. ESTIMATED BLOOD LOSS: Zero. SPECIMEN TAKEN: None. NARRATIVE: After obtaining the appropriate consent, the patient was brought to the operating room where the patient was placed under cardiac monitoring and prepped and draped in the usual sterile manner. At the 11 o'clock position, a 15-degree super sharp blade was used to create a paracentesis followed by instillation of 1% Xylocaine MPF 50:50 mix with BSS into the anterior chamber. This was followed by Duovisc viscoelastic to stabilize the anterior chamber. At the 9 o'clock position a self-sealing corneal flap incision was created using 2.8 mm gloria keratome. A cystotome was used to initiate a continuous tear capsulorrhexis which was completed with the Utrata forceps. A Binkhorst cannula was used to hydrodissect the lens nucleus followed by hydrodelineation. Phacoemulsification of the lens was performed utilizing phacochop in 31.68 seconds at 20% power. The remaining cortical material was removed using the irrigation aspiration mode followed by additional 1% Xylocaine MPF into the anterior chamber followed by viscoelastic to stabilize the capsular bag. A [employer]ch [employer] Lomb MX60E 16.0, posterior chamber lens was placed into the capsular bag without difficulty. The remaining viscoelastic material was removed from the anterior chamber with the irrigation/aspiration. Balanced salt solution was used to normalize the intraocular pressure. The incision was checked for watertight integrity. The patient then received 2 drops of 0.5% timolol followed by 2 drops Vigamox, was lightly patched and shielded in the usual manner. There were no complications from the procedure. The patient tolerated the procedure well and was returned to recovery in good condition. MMODL / IJN: [id number] /
== END 2022-09-18 10:31 | disposition home or self-care (01) ==
LOC: OR 07:27
PROVIDERS: ATTEND Ophthalmology
DX: H25.11 Age-related nuclear cataract, right eye (principal); I10 Essential (primary) hypertension; K74.60 Unspecified cirrhosis of liver; K75.9 Inflammatory liver disease, unspecified; K21.9 Gastro-esophageal reflux disease without esophagitis; Z98.890 Other specified postprocedural states; Z79.2 Long term (current) use of antibiotics; Z79.52 Long term (current) use of systemic steroids; Z79.899 Other long term (current) drug therapy; Z88.8 Allergy status to other drugs, medicaments and biological substances
CPT/HCPCS: 66982; C1780; J2250; J0171; J3010; J2001

== ENCOUNTER 2022-09-24 07:48 | Day surgery (SDC) | payer OTHER ==
[2022-09-24 08:55] LABS: Mean Platelet Volume 8.1
[2022-09-24 08:59] LABS: Platelet Count 61 k/uL (150-450)
[2022-09-24 09:04] LABS: INR 1.1 (<1.2); Prothrombin Time 11.3 sec (9.0-12.0)
[2022-09-24 09:05] LABS: African American GFR (CKD) >90 (>60 ml/min/1.73 sqM); Glucose 98 mg/dL (74-99); Non-African American GFR(CKD) >90 (>60 ml/min/1.73 sqM)
[2022-09-24] MEDS: ALBUMIN HUMAN 25% 50 ML in EMPTY BAG 1 BAG IVPB SCH ×3 (09:41→10:16)
[2022-09-24 09:48] VITALS: RESP 16; TEMP 97.6
--- NOTE | 2022-09-24 09:59 | US ---
Ultrasound-guided paracentesis. DATE OF EXAM: 09/24/2022 CLINICAL HISTORY: Ascites The procedure was discussed with the patient. The risks, complications, benefits, and alternatives we re discussed and any questions were answered. Informed consent was obtained. The patient was placed s upine on the ultrasound table and prepped and draped in the usual sterile fashion. All elements of maximal barrier technique were utilized. Under ultrasound guidance, access into the right lower quadrant was obtained, via the paracentesis catheter system and direct ultrasound guidanc e. Approximately 10 liters of straw-colored fluid was removed. The patient was stable throughout the pro cedure and remained stable upon discharge from Department of Radiology. IMPRESSION: Successful paracentesis under ultrasound guidance.
[2022-09-24] MEDS ORDERED: ALBUMIN HUMAN 25% 50 ML in EMPTY BAG 1 BAG IVPB ONE (10:18)
[2022-09-24 11:36] VITALS: BP 124/71; PULSE 74
== END 2022-09-24 11:20 | disposition home or self-care (01) ==
LOC: RADPROMAIN 07:48
PROVIDERS: ATTEND Internal Medicine
DX: R18.8 Other ascites (principal)
CPT/HCPCS: 82565; 82947; 85049; 85610; 36415; 49083; P9047

== ENCOUNTER 2022-10-01 07:58 | Day surgery (SDC) | payer OTHER ==
[2022-10-01 08:51] LABS: Mean Platelet Volume 8.5
[2022-10-01 08:54] LABS: Platelet Count 59 k/uL (150-450)
[2022-10-01 09:01] LABS: INR 1.2 (<1.2); Prothrombin Time 12.1 sec (9.0-12.0)
[2022-10-01 09:10] VITALS: RESP 16; TEMP 97.7
[2022-10-01 09:12] LABS: African American GFR (CKD) >90 (>60 ml/min/1.73 sqM); Non-African American GFR(CKD) 86 (>60 ml/min/1.73 sqM)
[2022-10-01] MEDS: ALBUMIN HUMAN 25% 50 ML in EMPTY BAG 1 BAG IVPB SCH ×4 (09:51→10:37)
[2022-10-01 11:22] VITALS: BP 111/60; PULSE 77
--- NOTE | 2022-10-02 08:27 | US ---
Ultrasound-guided paracentesis. DATE OF EXAM: 10/01/2022 CLINICAL HISTORY: Ascites. Swelling. Comparison: Study performed one week earlier and older studies. Findings: The procedure was discussed with the patient. The risks, complications, benefits, and alternatives we re discussed and any questions were answered. Informed consent was obtained. The patient was placed s upine on the ultrasound table and prepped and draped in the usual sterile fashion. All elements of maximal barrier technique were utilized. Under ultrasound guidance, access into the right lower quadrant was obtained, via the paracentesis catheter system and direct ultrasound guidanc e. Amount of fluid removed documented by IR nurse was 13.6L straw colored fluid. The patient was stable throughout the procedure and remained stable upon discharge from Department of Radiology. IMPRESSION: Successful paracentesis under ultrasound guidance for therapeutic benefit.
== END 2022-10-01 11:35 | disposition home or self-care (01) ==
LOC: RADPROMAIN 07:58
PROVIDERS: ATTEND Internal Medicine
DX: R18.8 Other ascites (principal)
CPT/HCPCS: 82565; 85049; 85610; 36415; 49083; P9047

== ENCOUNTER 2022-10-02 07:38 | Day surgery (SDC) | payer OTHER ==
[2022-09-30 11:28] VITALS: BMI 26.9
[~2022-10-02 07:38] MED LIST changes: -LACTATED RINGERS 1,000 ML IV SCH; -LIDOCAINE 1% (10MG/ML) FOR IV START INTRADERMA PRN
[2022-10-02] MEDS ORDERED: LIDOCAINE 1% (10MG/ML) FOR IV START INTRADERMA PRN (07:49)
[2022-10-02] MEDS ORDERED: LACTATED RINGERS 1,000 ML IV SCH (07:49)
[2022-10-02] MEDS: CYCLOPENTOLATE 1% OPHTH SOLN 2 ML BTL OP PRN ×3 (08:07→08:30)
[2022-10-02] MEDS: PHENYLEPHRINE 2.5% OPHTH DRP 2ML OP PRN ×3 (08:11→08:34)
[2022-10-02 08:30] VITALS: TEMP 98.3
[2022-10-02] MEDS ORDERED: HYDROCORTISONE SUCCINATE 100 MG/2 ML VIAL ONE (09:33)
[2022-10-02] MEDS ORDERED: MIDAZOLAM 2 MG/2 ML VIAL ONE (09:33)
[2022-10-02] MEDS ORDERED: fentaNYL (PF) 50 MCG/ML 2 ML AMP ONE (09:33)
[2022-10-02] MEDS ORDERED: EPINEPHrine (PF) 0.3 ML in BALANCED SALT IRRIG SOLN COMB2 500 ML IRRIGATION ONE (09:43)
[2022-10-02] MEDS ORDERED: LIDOCAINE 1% (PF) 10MG/ML VIAL MISCELLANE ONE (09:45)
[2022-10-02] MEDS ORDERED: HYALURONATE SODIUM INTRAOCULAR 1 EACH SYRINGE (12MG/ML) INTRAOCULA ONE (09:45)
[2022-10-02] MEDS ORDERED: BALANCED SALT IRRIG SOLN COMB2 15 ML IRRIG.SOLN INTRAOCULA ONE (09:45)
[2022-10-02] MEDS ORDERED: TRIAMCINOLONE ACETONIDE (PF) 40 MG/ML 1ML VIAL INTRAOCULA ONE (10:23)
[2022-10-02] MEDS ORDERED: ACETYLCHOLINE CHLORIDE 10 MG/ML 2 ML KIT INTRAOCULA ONE (10:23)
[2022-10-02] MEDS ORDERED: DUOVISC KIT (GREEN BOX) INTRAOCULA ONE (10:38)
--- NOTE | 2022-10-02 10:55 | P.OP ---
Date of Procedure: 10/02/22 Preoperative Diagnosis: NS Postoperative Diagnosis: pc rent & vitrectomy with lens implant Procedure(s) Performed: PIOL, OS & anterior vitrectomy Implants: [id number] 17.00 Anesthesia: MAC Surgeon: Lance Alvarez Pathology: none sent Condition: stable Disposition: same day Indications for Procedure: blurry vision Operative Findings: limited ant vit with Triescence and sulcus fixed IOL
[2022-10-02 10:57] VITALS: RESP 12
[2022-10-02 11:17] VITALS: BP 106/65; PULSE 67
--- NOTE | 2022-10-03 01:02 | OP ---
OPERATIVE REPORT DATE OF SERVICE : 10/02/2022 PROCEDURE PERFORMED: Phacoemulsification of cataract and intraocular lens implant to the left eye. PREOPERATIVE DIAGNOSIS: Nuclear sclerosis. 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 ANESTHESIA: Monitored anesthesia care. ESTIMATED BLOOD LOSS: None. SPECIMEN TAKEN: None. NARRATIVE: After obtaining the appropriate consent, the patient was brought to the operating room. There, he was placed under cardiac monitoring and prepped and draped in the usual sterile manner. He was approached from his left temporal side and at the 5 o'clock position, an MVR blade was used to create a paracentesis port. Through this opening, 1% Xylocaine MPF 50:50 mix with balanced salt solution was injected into the anterior chamber. This was followed by a Viscoat, which was used to stabilize the anterior chamber and at the 3 o'clock position, a 2.5 mm keratome was used to create a self- sealing corneal flap incision. Through this opening, a cystotome was introduced to begin a continuous tear capsulorrhexis which was completed using the Utrata forceps. Hydrodissection and hydrodelineation of the lens were accomplished with balanced salt solution. Phacoemulsification of the lens was begun. However, the phacoemulsification machine malfunctioned and there was no ability to phacoemulsify at the moment intended. Through several attempts, it was finally decided to manually divide and conquer this advanced dense cataract using standard dividing conquer and extracapsular cataract surgery methods. Intermittently, the phacoemulsification unit did perform and the lens was eventually removed in 47.72 seconds at 17% power, however, during the final stages of removal of cortical material, following the additional Xylocaine MPF into the anterior chamber, it was identified that the posterior capsule had become torn. Viscoelastic was used to stabilize the posterior rent and Triesence was used to identify any vitreous which is drained into the anterior chamber. Examination of the eye did not reveal any nuclear material having fallen into the vitreous cavity. Therefore, a simple limited anterior vitrectomy was performed from the anterior chamber without difficulty. The anterior capsule had remained intact during the course of this procedure. Therefore, the sulcus fixed Bausch [employer] Lomb LI61AO 17 diopter posterior chamber intraocular lens was chosen. However, during the initial delivery of this implant into the eye, it was identified once 90% of the optic had been delivered into the anterior chamber that both the lead haptic which had a small distortion to it and the trailing haptic, which was bent 180 degrees upon itself, it was decided that lens would not be well supported in the ciliary sulcus and was removed using the Dexin Interactive lens removal system. A second LI61 AO 17 diopter posterior chamber intraocular lens did deliver faithfully into the anterior chamber touching both haptics within the sulcus and the optic was overlying the anterior capsule. Miochol was used to bring about pupillary miosis and the remaining viscoelastic was removed from the anterior chamber under irrigation and aspiration. Because of the temporal incision had to be enlarged to accommodate the LI61 lens injector once the eye was brought to normal intraocular pressure, the wound was dried and Tisseel was used to ensure watertighting closure at the end of the case. The patient did receive 2 drops of 0.5% timolol followed by 2 drops of 0.5% moxifloxacin. He was then lightly patched and shielded in the usual manner. He did experience some discomfort during the course of the procedure, which was handled through intravenous and additional topical medications, however, he was returned to recovery in good condition. MMODL / IJN: [id number] / ARRON
== END 2022-10-02 11:52 | disposition home or self-care (01) ==
LOC: OR 07:38
PROVIDERS: ATTEND Ophthalmology
DX: H25.12 Age-related nuclear cataract, left eye (principal); H01.00A Unspecified blepharitis right eye, upper and lower eyelids; H52.4 Presbyopia; H52.223 Regular astigmatism, bilateral; I10 Essential (primary) hypertension; Z96.1 Presence of intraocular lens; Z79.899 Other long term (current) drug therapy; Z98.890 Other specified postprocedural states
CPT/HCPCS: 67042; 66984; C1762; V2632; J2250; J1720; J0171; J3010; J3300; J2001

== ENCOUNTER 2022-10-07 08:36 | Day surgery (SDC) | payer OTHER ==
[2022-10-07 09:42] LABS: Mean Platelet Volume 8.6
[2022-10-07 09:45] LABS: Platelet Count 71 k/uL (150-450)
[2022-10-07 09:52] LABS: INR 1.1 (<1.2); Prothrombin Time 11.7 sec (9.0-12.0)
[2022-10-07 09:55] LABS: African American GFR (CKD) >90 (>60 ml/min/1.73 sqM); Non-African American GFR(CKD) 88 (>60 ml/min/1.73 sqM)
[2022-10-07 10:00] VITALS: TEMP 98.2
[2022-10-07] MEDS: ALBUMIN HUMAN 25% 50 ML in EMPTY BAG 1 BAG IVPB SCH ×4 (10:49→11:21)
[2022-10-07 11:47] VITALS: RESP 16
[2022-10-07 12:31] VITALS: BP 121/61; PULSE 76
--- NOTE | 2022-10-07 13:16 | US ---
Ultrasound-guided paracentesis. DATE OF EXAM: 10/07/2022 CLINICAL HISTORY: Ascites The procedure was discussed with the patient. The risks, complications, benefits, and alternatives we re discussed and any questions were answered. Informed consent was obtained. The patient was placed s upine on the ultrasound table and prepped and draped in the usual sterile fashion. All elements of maximal barrier technique were utilized. Under ultrasound guidance, access into the right lower quadrant was obtained, via the paracentesis catheter system and direct ultrasound guidanc e. Approximately 13 liters of straw-colored fluid was removed. The patient was stable throughout the pro cedure and remained stable upon discharge from Department of Radiology. IMPRESSION: Successful paracentesis under ultrasound guidance.
== END 2022-10-07 12:25 | disposition home or self-care (01) ==
LOC: RADPROMAIN 08:36
PROVIDERS: ATTEND Internal Medicine
DX: R18.8 Other ascites (principal)
CPT/HCPCS: 82565; 85049; 85610; 36415; 49083; P9047

== ENCOUNTER 2022-10-15 07:52 | Day surgery (SDC) | payer OTHER ==
[2022-10-15 08:40] LABS: Mean Platelet Volume 9.1
[2022-10-15 08:42] LABS: Platelet Count 65 k/uL (150-450)
[2022-10-15 08:43] VITALS: TEMP 98.1
[2022-10-15 08:47] LABS: INR 1.2 (<1.2); Prothrombin Time 12.4 sec (9.0-12.0)
[2022-10-15 08:50] LABS: African American GFR (CKD) >90 (>60 ml/min/1.73 sqM); Non-African American GFR(CKD) 85 (>60 ml/min/1.73 sqM)
[2022-10-15] MEDS: ALBUMIN HUMAN 25% 50 ML in EMPTY BAG 1 BAG IVPB SCH ×4 (09:20→09:53)
[2022-10-15 09:57] VITALS: RESP 16
[2022-10-15 10:26] VITALS: BP 110/66; PULSE 71
--- NOTE | 2022-10-15 11:47 | US ---
Ultrasound-guided paracentesis. DATE OF EXAM: 10/15/2022 CLINICAL HISTORY: Ascites The procedure was discussed with the patient. The risks, complications, benefits, and alternatives we re discussed and any questions were answered. Informed consent was obtained. The patient was placed s upine on the ultrasound table and prepped and draped in the usual sterile fashion. All elements of maximal barrier technique were utilized. Under ultrasound guidance, access into the right lower quadrant was obtained, via the paracentesis catheter system and direct ultrasound guidanc e. Approximately 13 liters of straw-colored fluid was removed. The patient was stable throughout the pro cedure and remained stable upon discharge from Department of Radiology. IMPRESSION: Successful paracentesis under ultrasound guidance.
== END 2022-10-15 11:00 | disposition home or self-care (01) ==
LOC: RADPROMAIN 07:52
PROVIDERS: ATTEND Internal Medicine
DX: R18.8 Other ascites (principal)
CPT/HCPCS: 82565; 85049; 85610; 36415; 49083; P9047

== ENCOUNTER 2022-10-29 07:48 | Day surgery (SDC) | payer OTHER ==
[2022-10-29 08:56] VITALS: TEMP 98.2
[2022-10-29 08:58] LABS: Mean Platelet Volume 8.9
[2022-10-29 09:00] LABS: Platelet Count 54 k/uL (150-450)
[2022-10-29 09:02] LABS: African American GFR (CKD) >90 (>60 ml/min/1.73 sqM); Non-African American GFR(CKD) 88 (>60 ml/min/1.73 sqM)
[2022-10-29 09:05] LABS: INR 1.2 (<1.2); Prothrombin Time 12.5 sec (9.0-12.0)
[2022-10-29] MEDS: ALBUMIN HUMAN 25% 50 ML in EMPTY BAG 1 BAG IVPB SCH ×4 (09:31→10:16)
[2022-10-29 09:56] VITALS: RESP 16
[2022-10-29 11:27] VITALS: BP 112/62; PULSE 72
--- NOTE | 2022-10-29 11:58 | US ---
EXAMINATION TYPE: US paracentesis abd w/image DATE OF EXAM: 10/29/2022 9:29 AM CLINICAL INDICATION:Male, 62 years old with history of R18.8 ascites; COMPARISON: 10/22/2022 ATTENDING: Dr. Ajay Cunha PROCEDURE: Informed consent was obtained. The risks of the procedure were extensively explained incl uding risk of damage to surrounding bowel with perforation and need for additional procedures. Proced ure was performed in the ultrasound procedure suite. Ultrasound imaging of the abdomen demonstrate as citic fluid. An appropriate access site was localized to the right lower abdomen. Timeout was taken p er protocol. The skin was prepped and draped in the usual sterile fashion and then locally anesthetiz ed with 1% lidocaine. The peritoneal cavity was then accessed via a 5-Bengali one-step needle/cathete r. Approximately 13,700 cc of clear straw-colored fluid was obtained. Postprocedural imaging of the abdomen demonstrate a minimal amount of abdominal fluid. Patient tolerated procedure well without immediate complication. Hemostasis at the procedural site w as obtained with a sterile bandage placed. The patient was monitored in the holding area following th e procedure and was subsequently discharged in stable condition. IMPRESSION: Ultrasound guided paracentesis, with approximately 13,700 cc of clear straw-colored fluid drained. No immediate complications were evident.
== END 2022-10-29 11:05 | disposition home or self-care (01) ==
LOC: RADPROMAIN 07:48
PROVIDERS: ATTEND Internal Medicine
DX: R18.8 Other ascites (principal)
CPT/HCPCS: 82565; 85049; 85610; 49083; P9047

== ENCOUNTER 2022-11-05 07:56 | Day surgery (SDC) | payer OTHER ==
[2022-11-05 08:29] VITALS: RESP 16; TEMP 98.1
[2022-11-05 08:55] LABS: Mean Platelet Volume 8.2
[2022-11-05 08:56] LABS: Platelet Count 58 k/uL (150-450)
[2022-11-05 09:00] LABS: African American GFR (CKD) >90 (>60 ml/min/1.73 sqM); Non-African American GFR(CKD) 89 (>60 ml/min/1.73 sqM)
[2022-11-05 09:04] LABS: INR 1.2 (<1.2); Prothrombin Time 12.6 sec (9.0-12.0)
[2022-11-05] MEDS: ALBUMIN HUMAN 25% 50 ML in EMPTY BAG 1 BAG IVPB SCH ×4 (09:28→10:16)
[2022-11-05 11:05] VITALS: BP 124/59; PULSE 80
--- NOTE | 2022-11-05 11:16 | US ---
Ultrasound-guided paracentesis. DATE OF EXAM: 11/05/2022 CLINICAL HISTORY: Ascites The procedure was discussed with the patient. The risks, complications, benefits, and alternatives we re discussed and any questions were answered. Informed consent was obtained. The patient was placed s upine on the ultrasound table and prepped and draped in the usual sterile fashion. All elements of maximal barrier technique were utilized. Under ultrasound guidance, access into the right lower quadrant was obtained, via the paracentesis catheter system and direct ultrasound guidanc e. Approximately 14 liters of straw-colored fluid was removed. The patient was stable throughout the pro cedure and remained stable upon discharge from Department of Radiology. IMPRESSION: Successful paracentesis under ultrasound guidance.
== END 2022-11-05 11:15 | disposition home or self-care (01) ==
LOC: RADPROMAIN 07:56
PROVIDERS: ATTEND Internal Medicine
DX: R18.8 Other ascites (principal)
CPT/HCPCS: 82565; 85049; 85610; 36415; 49083; P9047

== ENCOUNTER → 2022-11-11 | Outpatient (CLI) | payer OTHER ==
[2022-11-11 15:49] LABS: INR 1.09 sec (0.93-1.11); Prothrombin Time 12.3 sec (9.9-11.9)
[2022-11-11 16:04] LABS: Basophils # (A) 0.02 X 10*3/uL (0.00-0.10); Basophils % (A) 0.6 %; Eosinophils # (A) 0.15 X 10*3/uL (0.04-0.35); Eosinophils % (A) 4.4 %; HCT 33.5 % (39.6-50.0); HGB 11.1 d/dL (13.0-17.0); Immature Platelet Fraction 2.2 % (1.1-6.1); Lymphocytes # (A) 0.27 X 10*3/uL (0.90-5.00); Lymphocytes % (A) 7.9 %; MCHC 33.1 d/dL (32.0-37.0); MCV 96.5 FL (80.0-97.0); Mean Platelet Volume 10.9 FL (9.5-12.2); Monocytes # (A) 0.31 X 10*3/uL (0.20-1.00); NRBC Per 100 WBC 0 X 10*3/uL (0.00-0.01); Neutrophils # (A) 2.67 X 10*3/uL (1.80-7.70); Neutrophils % (A) 77.8 %; Platelet Count 59 X 10*3/uL (140-440); RBC 3.47 X 10*6/uL (4.40-5.60); RBC Morphology Normal (Normal); RDW 14.3 % (11.5-14.5); WBC 3.43 X 10*3/uL (4.50-10.00)
[2022-11-11 16:55] LABS: ALT 21 U/L (10-49); AST 33 U/L (14-35); Albumin 3.4 d/dL (3.8-4.9); Albumin/Globulin Ratio 1.42 Ratio (1.60-3.17); Alkaline Phosphatase 92 U/L (41-126); BUN/Creat Ratio 13.55 Ratio (12.00-20.00); Blood Urea Nitrogen 14.9 mg/dL (9.0-27.0); Calcium 8.5 mg/dL (8.7-10.3); Carbon Dioxide 21.6 mmol/L (21.6-31.8); Chloride 97 mmol/L (96-109); Globulin 2.4 d/dL (1.6-3.3); Glucose 138 mg/dL (70-110); Potassium 4.5 mmol/L (3.5-5.5); Sodium 130 mmol/L (135-145); Total Protein 5.8 d/dL (6.2-8.2)
== END | disposition home or self-care (01) ==
LOC: LABWHC1 09:20
PROVIDERS: ATTEND Internal Medicine Gastroenterology
DX: K70.31 Alcoholic cirrhosis of liver with ascites (principal)
CPT/HCPCS: 36415; 80053; 85025; 85610

== ENCOUNTER 2022-11-12 07:43 | Day surgery (SDC) | payer OTHER ==
[2022-11-12 08:24] VITALS: RESP 16; TEMP 98.2
[2022-11-12] MEDS: ALBUMIN HUMAN 25% 50 ML in EMPTY BAG 1 BAG IVPB SCH ×4 (09:12→09:55)
[2022-11-12 10:30] VITALS: BP 122/63; PULSE 76
--- NOTE | 2022-11-12 11:31 | US ---
EXAMINATION TYPE: US paracentesis abd w/image DATE OF EXAM: 11/12/2022 9:06 AM CLINICAL INDICATION:Male, 62 years old with history of R18.8 ASCITES; COMPARISON: 11/05/2022 ATTENDING: Dr. Ajay Cunha PROCEDURE: Informed consent was obtained. The risks of the procedure were extensively explained incl uding risk of damage to surrounding bowel with perforation and need for additional procedures. Proced ure was performed in the ultrasound procedure suite. Ultrasound imaging of the abdomen demonstrate as citic fluid. An appropriate access site was localized to the right lower abdomen. Timeout was taken p er protocol. The skin was prepped and draped in the usual sterile fashion and then locally anesthetiz ed with 1% lidocaine. The peritoneal cavity was then accessed via a 5-[place]ore[place] one-step needle/cathete r. Approximately 73922 cc of clear straw-colored fluid was obtained. Postprocedural imaging of the abdomen demonstrate a minimal amount of abdominal fluid. Patient tolerated procedure well without immediate complication. Hemostasis at the procedural site w as obtained with a sterile bandage placed. The patient was monitored in the holding area following th e procedure and was subsequently discharged in stable condition. IMPRESSION: Ultrasound guided paracentesis, with approximately 22474 cc of clear straw-colored fluid drained. No immediate complications were evident.
== END 2022-11-12 10:40 | disposition home or self-care (01) ==
LOC: RADPROMAIN 07:43
PROVIDERS: ATTEND Internal Medicine
DX: R18.8 Other ascites (principal)
CPT/HCPCS: 49083; P9047

== ENCOUNTER 2022-11-15 08:50 | Day surgery (SDC) | payer OTHER ==
[2022-11-15 09:12] VITALS: RESP 16; TEMP 97.9
[2022-11-15] MEDS: ALBUMIN HUMAN 25% 50 ML in EMPTY BAG 1 BAG IVPB SCH ×4 (10:16→10:59)
[2022-11-15 10:51] VITALS: PULSE 73
[2022-11-15 11:54] VITALS: BP 118/66
--- NOTE | 2022-11-15 22:49 | US ---
EXAMINATION TYPE: US paracentesis abd w/image DATE OF EXAM: 11/15/2022 CLINICAL HISTORY: 62-year-old male R18.8, ascites, referred for biweekly paracentesis. The procedure was discussed with the patient. The risks, complications, benefits, and alternatives we re discussed and any questions were answered. Informed consent was obtained. The patient was placed s upine on the ultrasound table and prepped and draped in the usual sterile fashion. All elements of maximal barrier technique were utilized. Ultrasound was used to determine the precise skin entry site along the right lower quadrant. Utilizing a 6 Cymraes safety centesis catheter system and trocar technique, the catheter was advanced into the right lower quadrant ascites collection. Approximately 8.7 liters of straw-colored fluid was removed. The catheter was removed, hemostasis obtained, and a dressing placed. The patient was stable throughout the procedure and remained stable upon discharge from Department of Radiology. IMPRESSION: Successful therapeutic paracentesis under ultrasound guidance. 8.7 L removed.
== END 2022-11-15 11:20 | disposition home or self-care (01) ==
LOC: RADPROMAIN 08:50
PROVIDERS: ATTEND Internal Medicine
DX: R18.8 Other ascites (principal)
CPT/HCPCS: 49083; P9047

== ENCOUNTER 2022-11-19 07:53 | Day surgery (SDC) | payer OTHER ==
[2022-11-19 08:35] VITALS: RESP 16; TEMP 98.3
[2022-11-19] MEDS: ALBUMIN HUMAN 25% 50 ML in EMPTY BAG 1 BAG IVPB SCH ×4 (09:20→10:22)
[2022-11-19 10:32] VITALS: BP 129/79; PULSE 79
--- NOTE | 2022-11-19 11:50 | US ---
Ultrasound-guided paracentesis. DATE OF EXAM: 11/19/2022 CLINICAL HISTORY: Ascites The procedure was discussed with the patient. The risks, complications, benefits, and alternatives we re discussed and any questions were answered. Informed consent was obtained. The patient was placed s upine on the ultrasound table and prepped and draped in the usual sterile fashion. All elements of maximal barrier technique were utilized. Under ultrasound guidance, access into the right lower quadrant was obtained, via the paracentesis catheter system and direct ultrasound guidanc e. Approximately 8.1 liters of straw-colored fluid was removed. The patient was stable throughout the pr ocedure and remained stable upon discharge from Department of Radiology. IMPRESSION: Successful paracentesis under ultrasound guidance.
== END 2022-11-19 10:25 | disposition home or self-care (01) ==
LOC: RADPROMAIN 07:53
PROVIDERS: ATTEND Internal Medicine
DX: R18.8 Other ascites (principal)
CPT/HCPCS: 49083; P9047

== ENCOUNTER → 2022-11-20 | Outpatient (CLI) | payer OTHER ==
--- NOTE | 2022-11-20 23:43 | US ---
EXAMINATION TYPE: US liver DATE OF EXAM: 11/20/2022 COMPARISON: NONE CLINICAL INDICATION: Male, 62 years old with history of K70.31 ALCOHOLIC CIRRHOSIS OF LIVER WITH ASCI BERTA; cirrhosis ascites follow up patient has para every week. TECHNIQUE: Multiple sonographic images of the right upper quadrant are obtained. FINDINGS: EXAM MEASUREMENTS: Liver Length: 21 cm Gallbladder Wall: .4 cm CBD: .5 cm Right Kidney: 10.8 x 4.8 x 4.5 cm OVERHEAD DOOR TECHNICIAN NOTES: Pancreas: Obscured by bowel gas Liver: Increased attenuation hepatomegaly ascites. Gallbladder: Stones visualized Evidence for sonographic Lemon's sign: no CBD: wnl Right Kidney: No hydronephrosis or masses seen IMPRESSION: 1. Ascites. 2. Hepatomegaly. 3.: Cholelithiasis. Gallbladder wall thickening is present. Correlate for acute cholecystitis.
== END | disposition home or self-care (01) ==
LOC: RADUSWWP 10:11
PROVIDERS: ATTEND Internal Medicine Gastroenterology
DX: K70.31 Alcoholic cirrhosis of liver with ascites (principal); K80.20 Calculus of gallbladder without cholecystitis without obstruction
CPT/HCPCS: 76705

== ENCOUNTER 2022-11-22 13:40 | Emergency (ER) | payer OTHER ==
[2022-11-22 14:02] VITALS: RESP 18
[2022-11-22] MEDS ORDERED: TRANEXAMIC ACID 1,000 MG/10 ML VIAL MISCELLANE ONE (14:20)
[2022-11-22] MEDS ORDERED: GELATIN SPONGE,ABSORB (LARGE) 1 EACH SPONGE TOPICAL STA (15:35)
--- NOTE | 2022-11-22 15:59 | ED ---
ENT HPI - General Chief complaint: ENT Stated complaint: bleeding gums-post surgery Time Seen by Provider: 11/22/22 14:09 Source: patient, family Mode of arrival: ambulatory Limitations: no limitations - History of Present Illness Initial comments: Patient is a 62-year-old male who presents to the emergency department for bleeding gums. Patient had full dental extraction this morning around 9:30 at the dentist. Patient continued to have some oozing in his gums despite pressure. Patient denies that he was given epinephrine despite triage note. He denies blood thinner use. He has very minimal pain due to numbing. No lightheadedness, dizziness, syncope, chest pain, shortness of breath. - Related Data Home Medications Medication Instructions Recorded Confirmed traZODone HCL [Desyrel] 100 mg PO HS 06/18/21 11/26/22 Midodrine [ProAmatine] 5 mg PO Q8H 07/13/21 11/26/22 Spironolactone [Aldactone] 100 mg PO BID 05/29/22 11/26/22 Previous Rx's Medication Instructions Recorded Pantoprazole [Protonix] 40 mg PO AC-BRKFST tab 06/22/21 Folic Acid 1 mg PO DAILY tab 07/18/21 Furosemide [Lasix] 40 mg PO BID@0900,1600 tab 07/18/21 Potassium Chloride ER [K-Dur 20] 20 meq PO DAILY tablet 07/18/21 Allergies Allergy/AdvReac Type Severity Reaction Status Date / Time lisinopril AdvReac causes Verified 11/26/22 08:55 pancreatitis Review of Systems ROS Statement: Those systems with pertinent positive or pertinent negative responses have been documented in the HPI. ROS Other: All systems not noted in ROS Statement are negative. Past Medical History Past Medical History: Hypertension, Liver Disease, Pneumonia Additional Past Medical History / Comment(s): Liver cirrhosis, splenomegaly, pa ncreatitis-pt states pancreatitis was side effect from Lisinopril, pt denies hx of alcoholism/drinking heavily, cellulitis with sepsis, ASCITES History of Any Multi-Drug Resistant Organisms: None Reported Past Surgical History: No Surgical Hx Reported Additional Past Surgical History / Comment(s): Pt has never had surgery. Past Anesthesia/Blood Transfusion Reactions: No Reported Reaction, Unable to Obtain Additional Past Anesthesia/Blood Transfusion Reaction / Comment(s): Pt has never had anesthesia Past Psychological History: No Psychological Hx Reported Smoking Status: Never smoker Past Alcohol Use History: None Reported Past Drug Use History: None Reported - Past Family History Mother Family Medical History: Hypertension Additional Family Medical History / Comment(s): Mother lived to be 91 yrs old. Father Family Medical History: CVA/TIA Additional Family Medical History / Comment(s): Father of a CVA at the age of 65yrs. Son(s) Family Medical History: No Reported History Daughter(s) Family Medical History: No Reported History General Exam Limitations: no limitations General appearance: alert ENT exam: Present: normal oropharynx (All teeth extracted mild oozing of blood from the bilateral lower posterior gums) Respiratory exam: Present: normal lung sounds bilaterally. Absent: respiratory distress, wheezes, rales, rhonchi, stridor Cardiovascular Exam: Present: regular rate, normal rhythm, normal heart sounds. Absent: systolic murmur, diastolic murmur, rubs, gallop, clicks Neurological exam: Present: alert Psychiatric exam: Present: normal affect, normal mood Skin exam: Present: warm, dry, intact, normal color. Absent: rash Course Vital Signs 11/22/22 11/22/22 13:58 16:21 Temperature 97.2 F L 98.3 F Pulse Rate 85 82 Respiratory 18 18 Rate Blood Pressure 132/66 150/69 O2 Sat by Pulse 99 98 Oximetry Medical Decision Making - Medical Decision Making Was pt. sent in by a medical professional or institution (, PA, SECTION MAINTAINER, urgent care, hospital, or residential...) When possible be specific @ -No Did you speak to anyone other than the patient for history (EMS, parent, family, police, friend...)? What history was obtained from this source @ -No Did you review nursing and triage notes (agree or disagree)? Why? @ -I reviewed and agree with nursing and triage notes Were old charts reviewed (outside hosp., previous admission, EMS record, old EKG, old radiological studies, urgent care reports/EKG's, residential records)? Report findings @ -No old charts were reviewed Differential Diagnosis (chest pain, altered mental status, abdominal pain women, abdominal pain men, vaginal bleeding, weakness, fever, dyspnea, syncope, headache, dizziness, GI bleed, back pain, seizure, CVA, palpatations, mental health)? @ -not applicable EKG interpreted by me (3pts min.). @ -As above X-rays interpreted by me (1pt min.). @ -None done CT interpreted by me (1pt min.). @ -None done U/S interpreted by me (1pt. min.). @ -None done What testing was considered but not performed or refused? (CT, X-rays, U/S, labs)? Why? @ -None What meds were considered but not given or refused? Why? @ -None Did you discuss the management of the patient with other professionals (professionals i.e. DrGonzalez, PA, SECTION MAINTAINER, lab, RT, psych nurse, social service technician, vp production, teacher, electorate officer, manager rn case)? Give summary @ -No Was smoking cessation discussed for >3mins.? @ -No Was critical care preformed (if so, how long)? @ -No Were there social determinants of health that impacted care today? How? (Homelessness, low income, unemployed, alcoholism, drug addiction, transportation, low edu. Level, literacy, decrease access to med. care, senior care, rehab)? @ -No Was there de-escalation of care discussed even if they declined (Discuss DNR or withdrawal of care, Hospice)? DNR status @ -No What co-morbidities impacted this encounter? (DM, HTN, Smoking, COPD, CAD, Cancer, CVA, ARF, Chemo, Hep., AIDS, mental health diagnosis, sleep apnea, morbid obesity)? @ -None Was patient admitted / discharged? Hospital course, mention meds given and route, prescriptions, significant lab abnormalities, going to OR and other pertinent info. @ -Patient presenting for bleeding gums after dental procedure. All teeth are extracted there is mild oozing of blood from the bilateral lower posterior gums. Patient swish with ice water. TXA soaked gauze was then applied which slowed the bleeding. I applied gelfoam which didn't stay well however bleeding is minimal patient is discharged in stable condition. He will continue to swish ice cold water home. We discussed return parameters. Undiagnosed new problem with uncertain prognosis? @ -No Drug Therapy requiring intensive monitoring for toxicity (Heparin, Nitro, Ins ulin, Cardizem)? @ -No Were any procedures done? @ -No Diagnosis/symptom? @ -bleeding gums Acute, or Chronic, or Acute on Chronic? @ -acute Uncomplicated (without systemic symptoms) or Complicated (systemic symptoms)? @ -uncomplicated Side effects of treatment? @ -No Exacerbation, Progression, or Severe Exacerbation? @ -No Poses a threat to life or bodily function? How? (Chest pain, [place], [place], pneumonia, PE, COPD, DKA, ARF, appy, cholecystitis, CVA, Diverticulitis, Homicidal, Suicidal, threat to staff... and all critical care pts) @ -No Dr. Resendiz is my attending Disposition Clinical Impression: Bleeding gums Disposition: HOME SELF-CARE Condition: Good Instructions (If sedation given, give patient instructions): Postoperative Bleeding (ED) Additional Instructions: Keep the Gelfoam in until tomorrow. If it falls out and continue to bleed, swish with ice cold water. Follow-up with dentist in 1-2 days. Return to the emergency Department if you experience new, concerning, or worsening symptoms Is patient prescribed a controlled substance at d/c from ED?: No Referrals: Reggie Cho MD [Primary Care Provider] - 1-2 days
[2022-11-22] MEDS ORDERED: ACETAMINOPHEN TAB 500 MG TAB PO STA (16:05)
[2022-11-22 16:22] VITALS: BP 150/69; PULSE 82; TEMP 98.3
== END 2022-11-22 16:22 | disposition home or self-care (01) ==
LOC: EC 13:40
DX: K08.409 Partial loss of teeth, unspecified cause, unspecified class (principal); I10 Essential (primary) hypertension; Z79.899 Other long term (current) drug therapy; Z88.8 Allergy status to other drugs, medicaments and biological substances; Z98.818 Other dental procedure status
CPT/HCPCS: 99283

== ENCOUNTER 2022-11-26 07:50 | Day surgery (SDC) | payer OTHER ==
[2022-11-26 08:49] VITALS: TEMP 98
[2022-11-26 09:20] VITALS: PULSE 76; RESP 16
[2022-11-26] MEDS: ALBUMIN HUMAN 25% 50 ML in EMPTY BAG 1 BAG IVPB SCH ×4 (09:24→09:51)
[2022-11-26 10:48] VITALS: BP 108/74
--- NOTE | 2022-11-26 11:23 | US ---
Ultrasound-guided paracentesis. DATE OF EXAM: 11/26/2022 CLINICAL HISTORY: Ascites The procedure was discussed with the patient. The risks, complications, benefits, and alternatives we re discussed and any questions were answered. Informed consent was obtained. The patient was placed s upine on the ultrasound table and prepped and draped in the usual sterile fashion. All elements of maximal barrier technique were utilized. Under ultrasound guidance, access into the right lower quadrant was obtained, via the paracentesis catheter system and direct ultrasound guidanc e. Approximately 9 liters of straw-colored fluid was removed. The patient was stable throughout the proc edure and remained stable upon discharge from Department of Radiology. IMPRESSION: Successful paracentesis under ultrasound guidance.
== END 2022-11-26 10:15 | disposition home or self-care (01) ==
LOC: RADPROMAIN 07:50
PROVIDERS: ATTEND Internal Medicine
DX: R18.8 Other ascites (principal)
CPT/HCPCS: 49083; P9047

== ENCOUNTER 2022-11-29 08:54 | Day surgery (SDC) | payer OTHER ==
[2022-11-29 09:30] VITALS: TEMP 98
[2022-11-29] MEDS: ALBUMIN HUMAN 25% 50 ML in EMPTY BAG 1 BAG IVPB SCH ×4 (10:05→10:59)
[2022-11-29 11:01] VITALS: BP 126/69; PULSE 79; RESP 18
--- NOTE | 2022-11-29 12:01 | US ---
Ultrasound-guided paracentesis. DATE OF EXAM: 11/29/2022 CLINICAL HISTORY: Ascites The procedure was discussed with the patient. The risks, complications, benefits, and alternatives we re discussed and any questions were answered. Informed consent was obtained. The patient was placed s upine on the ultrasound table and prepped and draped in the usual sterile fashion. All elements of maximal barrier technique were utilized. Under ultrasound guidance, access into the right lower quadrant was obtained, via the paracentesis catheter system and direct ultrasound guidanc e. Approximately 6.3 liters of straw-colored fluid was removed. The patient was stable throughout the pr ocedure and remained stable upon discharge from Department of Radiology. IMPRESSION: Successful paracentesis under ultrasound guidance.
== END 2022-11-29 11:04 | disposition home or self-care (01) ==
LOC: RADPROMAIN 08:54
PROVIDERS: ATTEND Internal Medicine
DX: R18.8 Other ascites (principal)
CPT/HCPCS: 49083; P9047

== ENCOUNTER 2022-12-03 08:10 | Day surgery (SDC) | payer OTHER ==
[2022-12-03 08:49] VITALS: TEMP 98.4
[2022-12-03] MEDS: ALBUMIN HUMAN 25% 50 ML in EMPTY BAG 1 BAG IVPB SCH ×3 (09:23→10:44)
[2022-12-03 09:58] VITALS: PULSE 71
[2022-12-03 10:33] VITALS: BP 116/60; RESP 6
--- NOTE | 2022-12-03 11:14 | US ---
Ultrasound-guided paracentesis. DATE OF EXAM: 12/03/2022 CLINICAL HISTORY: Ascites The procedure was discussed with the patient. The risks, complications, benefits, and alternatives we re discussed and any questions were answered. Informed consent was obtained. The patient was placed s upine on the ultrasound table and prepped and draped in the usual sterile fashion. All elements of maximal barrier technique were utilized. Under ultrasound guidance, access into the right lower quadrant was obtained, via the paracentesis catheter system and direct ultrasound guidanc e. Approximately 5.4 liters of straw-colored fluid was removed. The patient was stable throughout the pr ocedure and remained stable upon discharge from Department of Radiology. IMPRESSION: Successful paracentesis under ultrasound guidance.
== END 2022-12-03 10:25 | disposition home or self-care (01) ==
LOC: RADPROMAIN 08:10
PROVIDERS: ATTEND Internal Medicine
DX: R18.8 Other ascites (principal)
CPT/HCPCS: 36415; 49083; P9047

== ENCOUNTER 2022-12-06 08:47 | Day surgery (SDC) | payer OTHER ==
[2022-12-06 10:02] VITALS: RESP 16; TEMP 98.4
[2022-12-06 10:14] LABS: INR 1.2 (<1.2)
[2022-12-06 10:25] LABS: Platelet Count 78 k/uL (150-450)
[2022-12-06 10:28] LABS: African American GFR (CKD) >90 (>60 ml/min/1.73 sqM); Non-African American GFR(CKD) 85 (>60 ml/min/1.73 sqM)
[2022-12-06] MEDS: ALBUMIN HUMAN 25% 50 ML in EMPTY BAG 1 BAG IVPB SCH ×2 (10:46→11:03)
[2022-12-06 11:42] VITALS: BP 133/68; PULSE 81
--- NOTE | 2022-12-06 11:48 | US ---
Ultrasound-guided paracentesis. DATE OF EXAM: 12/06/2022 CLINICAL HISTORY: Ascites The procedure was discussed with the patient. The risks, complications, benefits, and alternatives we re discussed and any questions were answered. Informed consent was obtained. The patient was placed s upine on the ultrasound table and prepped and draped in the usual sterile fashion. All elements of maximal barrier technique were utilized. Under ultrasound guidance, access into the right lower quadrant was obtained, via the paracentesis catheter system and direct ultrasound guidanc e. Approximately 2.2 liters of straw-colored fluid was removed. The patient was stable throughout the pr ocedure and remained stable upon discharge from Department of Radiology. IMPRESSION: Successful paracentesis under ultrasound guidance.
== END 2022-12-06 11:07 | disposition home or self-care (01) ==
LOC: RADPROMAIN 08:47
PROVIDERS: ATTEND Internal Medicine
DX: R18.8 Other ascites (principal)
CPT/HCPCS: 82565; 85049; 85610; 36415; 49083; P9047

== ENCOUNTER 2022-12-10 07:54 | Day surgery (SDC) | payer OTHER ==
[2022-12-10 09:07] VITALS: RESP 18
[2022-12-10] MEDS: ALBUMIN HUMAN 25% 50 ML in EMPTY BAG 1 BAG IVPB SCH ×2 (09:45→10:11)
--- NOTE | 2022-12-10 10:40 | US ---
Ultrasound-guided paracentesis. DATE OF EXAM: 12/10/2022 CLINICAL HISTORY: Ascites The procedure was discussed with the patient. The risks, complications, benefits, and alternatives we re discussed and any questions were answered. Informed consent was obtained. The patient was placed s upine on the ultrasound table and prepped and draped in the usual sterile fashion. All elements of maximal barrier technique were utilized. Under ultrasound guidance, access into the right lower quadrant was obtained, via the paracentesis catheter system and direct ultrasound guidanc e. Approximately 5.2 liters of straw-colored fluid was removed. The patient was stable throughout the pr ocedure and remained stable upon discharge from Department of Radiology. IMPRESSION: Successful paracentesis under ultrasound guidance.
[2022-12-10 11:45] VITALS: BP 110/68; PULSE 77
== END 2022-12-10 10:15 | disposition home or self-care (01) ==
LOC: RADPROMAIN 07:54
PROVIDERS: ATTEND Internal Medicine
DX: R18.8 Other ascites (principal)
CPT/HCPCS: 36430; 49083; P9047

== ENCOUNTER → 2022-12-12 | Outpatient (CLI) | payer OTHER ==
[2022-12-12 11:38] LABS: Basophils % (A) 0 %; Eosinophils # (A) 0.1 k/uL (0-0.7); Eosinophils % (A) 4 %; HCT 35.2 % (39.0-53.0); HGB 11.7 gm/dL (13.0-17.5); Lymphocytes # (A) 0.3 k/uL (1.0-4.8); Lymphocytes % (A) 12 %; MCH 32.4 pg (25.0-35.0); MCHC 33.2 g/dL (31.0-37.0); MCV 97.7 fL (80.0-100.0); Monocytes # (A) 0.3 k/uL (0-1.0); Monocytes % (A) 12 %; Neutrophils # (A) 1.4 k/uL (1.3-7.7); Neutrophils % (A) 68 %; RDW 14.2 % (11.5-15.5); WBC 2.1 k/uL (3.8-10.6)
[2022-12-12 11:44] LABS: ALT 20 U/L (4-49); AST 33 U/L (17-59); African American GFR (CKD) >90 (>60 ml/min/1.73 sqM); Albumin 3.3 g/dL (3.5-5.0); Albumin/Globulin Ratio 1.1; Alkaline Phosphatase 67 U/L (38-126); Anion Gap 9 mmol/L; Blood Urea Nitrogen 15 mg/dL (9-20); Calcium 8.6 mg/dL (8.4-10.2); Carbon Dioxide 21 mmol/L (22-30); Chloride 94 mmol/L (98-107); Globulin 3.1 g/dL; Glucose 121 mg/dL (74-99); Non-African American GFR(CKD) 83 (>60 ml/min/1.73 sqM); Sodium 124 mmol/L (137-145); Total Bilirubin 1.9 mg/dL (0.2-1.3); Total Protein 6.4 g/dL (6.3-8.2)
[2022-12-12 12:57] LABS: Platelet Count 61 k/uL (150-450); RBC Morphology Normal
== END | disposition home or self-care (01) ==
LOC: LABWHC1 09:59
PROVIDERS: ATTEND Internal Medicine
DX: K70.31 Alcoholic cirrhosis of liver with ascites (principal)
CPT/HCPCS: 36415; 80053; 82105; 85025

== ENCOUNTER 2022-12-13 08:52 | Day surgery (SDC) | payer OTHER ==
[2022-12-13 09:40] VITALS: RESP 16; TEMP 98.1
[2022-12-13] MEDS: ALBUMIN HUMAN 25% 50 ML in EMPTY BAG 1 BAG IVPB SCH ×2 (11:15→11:16)
[2022-12-13 11:17] VITALS: BP 122/61; PULSE 72
--- NOTE | 2022-12-13 12:37 | US ---
EXAMINATION TYPE: US paracentesis abd w/image DATE OF EXAM: 12/13/2022 CLINICAL HISTORY: 62-year-old male recurrent ascites, here for biweekly paracentesis. The procedure was discussed with the patient. The risks, complications, benefits, and alternatives we re discussed and any questions were answered. Informed consent was obtained. The patient was placed s upine on the ultrasound table and prepped and draped in the usual sterile fashion. All elements of maximal barrier technique were utilized. Ultrasound guidance was utilized to determine the precise skin entry site along the right lower quadr ant. Utilizing trocar technique, a 6 Nauruan safety centesis catheter was placed into the right lower quadrant ascites without difficulty and 2.6 L of patient's typical, minimally opaque, straw-colored f luid was obtained. Catheter was removed, hemostasis obtained, and dressing placed. The patient was stable throughout the procedure and remained stable upon discharge from Department of Radiology. IMPRESSION: Successful therapeutic paracentesis under ultrasound guidance. 2.6 L removed. Consider moving the pat ient to weekly (rather than biweekly) paracentesis.
== END 2022-12-13 11:05 | disposition home or self-care (01) ==
LOC: RADPROMAIN 08:52
PROVIDERS: ATTEND Internal Medicine
DX: R18.8 Other ascites (principal)
CPT/HCPCS: 36415; 49083

== ENCOUNTER 2022-12-17 08:00 | Day surgery (SDC) | payer OTHER ==
[2022-12-17 09:03] VITALS: RESP 16; TEMP 98.2
[2022-12-17] MEDS: ALBUMIN HUMAN 25% 50 ML in EMPTY BAG 1 BAG IVPB SCH ×2 (09:40→10:49)
[2022-12-17 10:37] VITALS: BP 106/59; PULSE 67
--- NOTE | 2022-12-17 12:53 | US ---
Ultrasound-guided paracentesis. DATE OF EXAM: 12/17/2022 CLINICAL HISTORY: Ascites The procedure was discussed with the patient. The risks, complications, benefits, and alternatives we re discussed and any questions were answered. Informed consent was obtained. The patient was placed s upine on the ultrasound table and prepped and draped in the usual sterile fashion. All elements of maximal barrier technique were utilized. Under ultrasound guidance, access into the right lower quadrant was obtained, via the paracentesis catheter system and direct ultrasound guidanc e. Approximately 4.2 liters of straw-colored fluid was removed. The patient was stable throughout the pr ocedure and remained stable upon discharge from Department of Radiology. IMPRESSION: Successful paracentesis under ultrasound guidance.
== END 2022-12-17 10:30 | disposition home or self-care (01) ==
LOC: RADPROMAIN 08:00
PROVIDERS: ATTEND Internal Medicine
DX: R18.8 Other ascites (principal)
CPT/HCPCS: 36415; 49083; P9047

== ENCOUNTER → 2022-12-23 | Outpatient (CLI) | payer OTHER ==
[2022-12-23 09:25] LABS: HCT 34.7 % (39.0-53.0); HGB 11.4 gm/dL (13.0-17.5); MCH 32.5 pg (25.0-35.0); MCHC 32.8 g/dL (31.0-37.0); Macrocytosis Slight; Mean Platelet Volume 8.3; RDW 14.6 % (11.5-15.5); WBC 2.2 k/uL (3.8-10.6)
[2022-12-23 09:29] LABS: Platelet Count 55 k/uL (150-450)
[2022-12-23 09:35] LABS: INR 1.1 (<1.2); Prothrombin Time 11.8 sec (9.0-12.0)
[2022-12-23 09:36] LABS: African American GFR (CKD) >90 (>60 ml/min/1.73 sqM); Non-African American GFR(CKD) 86 (>60 ml/min/1.73 sqM)
== END | disposition home or self-care (01) ==
LOC: LABWHC1 07:54
PROVIDERS: ATTEND Internal Medicine
DX: K70.31 Alcoholic cirrhosis of liver with ascites (principal)
CPT/HCPCS: 36415; 82565; 85027; 85610

== ENCOUNTER 2022-12-24 07:57 | Day surgery (SDC) | payer OTHER ==
[2022-12-24 08:46] VITALS: RESP 16; TEMP 98.4
[2022-12-24 09:18] VITALS: PULSE 69
[2022-12-24] MEDS: ALBUMIN HUMAN 25% 50 ML in EMPTY BAG 1 BAG IVPB SCH ×4 (09:20→09:40)
[2022-12-24 09:44] VITALS: BP 100/60
--- NOTE | 2022-12-24 10:57 | US ---
Ultrasound-guided paracentesis. DATE OF EXAM: 12/24/2022 CLINICAL HISTORY: Ascites The procedure was discussed with the patient. The risks, complications, benefits, and alternatives we re discussed and any questions were answered. Informed consent was obtained. The patient was placed s upine on the ultrasound table and prepped and draped in the usual sterile fashion. All elements of maximal barrier technique were utilized. Under ultrasound guidance, access into the right lower quadrant was obtained, via the paracentesis catheter system and direct ultrasound guidanc e. Approximately 6.1 liters of straw-colored fluid was removed. The patient was stable throughout the pr ocedure and remained stable upon discharge from Department of Radiology. IMPRESSION: Successful paracentesis under ultrasound guidance.
== END 2022-12-24 09:51 | disposition home or self-care (01) ==
LOC: RADPROMAIN 07:57
PROVIDERS: ATTEND Internal Medicine
DX: R18.8 Other ascites (principal)
CPT/HCPCS: 49083; P9047

== ENCOUNTER 2023-01-07 07:49 | Day surgery (SDC) | payer OTHER ==
[2023-01-07 08:29] VITALS: RESP 16; TEMP 98.8
[2023-01-07] MEDS: ALBUMIN HUMAN 25% 50 ML in EMPTY BAG 1 BAG IVPB SCH ×4 (09:25→10:12)
[2023-01-07 10:28] VITALS: BP 113/69; PULSE 72
--- NOTE | 2023-01-07 12:55 | US ---
Ultrasound-guided paracentesis. DATE OF EXAM: 01/07/2023 CLINICAL HISTORY: Ascites The procedure was discussed with the patient. The risks, complications, benefits, and alternatives we re discussed and any questions were answered. Informed consent was obtained. The patient was placed s upine on the ultrasound table and prepped and draped in the usual sterile fashion. All elements of maximal barrier technique were utilized. Under ultrasound guidance, access into the right lower quadrant was obtained, via the paracentesis catheter system and direct ultrasound guidanc e. Approximately 7 liters of straw-colored fluid was removed. The patient was stable throughout the proc edure and remained stable upon discharge from Department of Radiology. IMPRESSION: Successful paracentesis under ultrasound guidance.
== END 2023-01-07 10:40 | disposition other institution (70) ==
LOC: RADPROMAIN 07:49
PROVIDERS: ATTEND Internal Medicine
DX: R18.8 Other ascites (principal)
CPT/HCPCS: 36415; 49083; P9047

== ENCOUNTER → 2023-01-13 | Outpatient (CLI) | payer OTHER ==
[2023-01-13 09:41] LABS: HCT 36.9 % (39.0-53.0); HGB 12.1 gm/dL (13.0-17.5); MCH 32.6 pg (25.0-35.0); MCHC 32.7 g/dL (31.0-37.0); MCV 99.7 fL (80.0-100.0); Macrocytosis Slight; RBC 3.71 m/uL (4.30-5.90); RDW 14.7 % (11.5-15.5)
[2023-01-13 09:51] LABS: Platelet Count 61 k/uL (150-450)
[2023-01-13 09:58] LABS: African American GFR (CKD) >90 (>60 ml/min/1.73 sqM); Non-African American GFR(CKD) >90 (>60 ml/min/1.73 sqM)
[2023-01-13 10:03] LABS: INR 1.2 (<1.2); Prothrombin Time 12.4 sec (9.0-12.0)
== END | disposition home or self-care (01) ==
LOC: LABWHC1 08:56
PROVIDERS: ATTEND Internal Medicine
DX: Z53.9 Procedure and treatment not carried out, unspecified reason (principal)

== ENCOUNTER 2023-01-14 07:53 | Day surgery (SDC) | payer OTHER ==
[2023-01-14] MEDS: ALBUMIN HUMAN 25% 50 ML in EMPTY BAG 1 BAG IVPB SCH ×3 (09:16→09:53)
[2023-01-14 09:31] VITALS: RESP 16; TEMP 98
[2023-01-14 10:35] VITALS: BP 110/68; PULSE 66
--- NOTE | 2023-01-14 11:57 | US ---
Ultrasound-guided paracentesis. DATE OF EXAM: 01/14/2023 CLINICAL HISTORY: Ascites The procedure was discussed with the patient. The risks, complications, benefits, and alternatives we re discussed and any questions were answered. Informed consent was obtained. The patient was placed s upine on the ultrasound table and prepped and draped in the usual sterile fashion. All elements of maximal barrier technique were utilized. Under ultrasound guidance, access into the right lower quadrant was obtained, via the paracentesis catheter system and direct ultrasound guidanc e. Approximately 5.1 liters of straw-colored fluid was removed. The patient was stable throughout the pr ocedure and remained stable upon discharge from Department of Radiology. IMPRESSION: Successful paracentesis under ultrasound guidance.
== END 2023-01-14 10:21 | disposition home or self-care (01) ==
LOC: RADPROMAIN 07:53
PROVIDERS: ATTEND Internal Medicine
DX: R18.8 Other ascites (principal)
CPT/HCPCS: 49083; P9047

== ENCOUNTER 2023-01-21 07:46 | Day surgery (SDC) | payer OTHER ==
[2023-01-21 09:03] VITALS: TEMP 98.2
[2023-01-21] MEDS: ALBUMIN HUMAN 25% 50 ML in EMPTY BAG 1 BAG IVPB SCH ×2 (09:38→10:42)
[2023-01-21 09:42] VITALS: RESP 16
--- NOTE | 2023-01-21 10:40 | US ---
Ultrasound-guided paracentesis. DATE OF EXAM: 01/21/2023 CLINICAL HISTORY: Ascites The procedure was discussed with the patient. The risks, complications, benefits, and alternatives we re discussed and any questions were answered. Informed consent was obtained. The patient was placed s upine on the ultrasound table and prepped and draped in the usual sterile fashion. All elements of maximal barrier technique were utilized. Under ultrasound guidance, access into the right lower quadrant was obtained, via the paracentesis catheter system and direct ultrasound guidanc e. Approximately 4.7 liters of straw-colored fluid was removed. The patient was stable throughout the pr ocedure and remained stable upon discharge from Department of Radiology. IMPRESSION: Successful paracentesis under ultrasound guidance.
[2023-01-21 10:57] VITALS: BP 105/63; PULSE 67
== END 2023-01-21 10:25 | disposition home or self-care (01) ==
LOC: RADPROMAIN 07:46
PROVIDERS: ATTEND Internal Medicine
DX: R18.8 Other ascites (principal)
CPT/HCPCS: 36415; 49083; P9047

== ENCOUNTER 2023-01-28 07:48 | Day surgery (SDC) | payer OTHER ==
[2023-01-28 08:57] VITALS: TEMP 98.8
[2023-01-28 09:37] VITALS: RESP 16
[2023-01-28] MEDS: ALBUMIN HUMAN 25% 50 ML in EMPTY BAG 1 BAG IVPB SCH (10:14)
[2023-01-28 10:36] VITALS: BP 109/66; PULSE 75
--- NOTE | 2023-02-03 08:38 | US ---
EXAMINATION TYPE: US paracentesis abd w/image DATE OF EXAM: 01/28/2023 9:37 AM CLINICAL INDICATION:Male, 62 years old with history of R18.8 ASCITES; COMPARISON: 01/21/2023 ATTENDING: Dr. Ajay Cunha PROCEDURE: Informed consent was obtained. The risks of the procedure were extensively explained incl uding risk of damage to surrounding bowel with perforation and need for additional procedures. Proced ure was performed in the ultrasound procedure suite. Ultrasound imaging of the abdomen demonstrate as citic fluid. An appropriate access site was localized to the right lower abdomen. Timeout was taken p er protocol. The skin was prepped and draped in the usual sterile fashion and then locally anesthetiz ed with 1% lidocaine. The peritoneal cavity was then accessed via a 5-Malay one-step needle/cathete r. Approximately 3950 cc of clear straw-colored fluid was obtained. Postprocedural imaging of the a bdomen demonstrate a minimal amount of abdominal fluid. Patient tolerated procedure well without immediate complication. Hemostasis at the procedural site w as obtained with a sterile bandage placed. The patient was monitored in the holding area following th e procedure and was subsequently discharged in stable condition. IMPRESSION: Ultrasound guided paracentesis, with approximately 3950 cc of clear straw-colored fluid drained. No immediate complications were evident.
== END 2023-01-28 10:00 | disposition home or self-care (01) ==
LOC: RADPROMAIN 07:48
PROVIDERS: ATTEND Internal Medicine
DX: R18.8 Other ascites (principal)
CPT/HCPCS: 49083

== ENCOUNTER 2023-02-04 08:10 | Day surgery (SDC) | payer OTHER ==
[2023-01-13 09:41] LABS: HCT 36.9 % (39.0-53.0); HGB 12.1 gm/dL (13.0-17.5); MCH 32.6 pg (25.0-35.0); MCHC 32.7 g/dL (31.0-37.0); MCV 99.7 fL (80.0-100.0); Macrocytosis Slight; RBC 3.71 m/uL (4.30-5.90); RDW 14.7 % (11.5-15.5)
[2023-01-13 09:51] LABS: Platelet Count 61 k/uL (150-450)
[2023-01-13 09:58] LABS: African American GFR (CKD) >90 (>60 ml/min/1.73 sqM); Non-African American GFR(CKD) >90 (>60 ml/min/1.73 sqM)
[2023-01-13 10:03] LABS: INR 1.2 (<1.2); Prothrombin Time 12.4 sec (9.0-12.0)
[2023-02-04] MEDS: ALBUMIN HUMAN 25% 50 ML in EMPTY BAG 1 BAG IVPB SCH ×3 (09:45→10:47)
[2023-02-04 09:57] VITALS: TEMP 98.1
[2023-02-04 11:05] VITALS: BP 111/64; PULSE 78; RESP 16
--- NOTE | 2023-02-04 11:50 | US ---
Ultrasound-guided paracentesis. DATE OF EXAM: 02/04/2023 CLINICAL HISTORY: Ascites The procedure was discussed with the patient. The risks, complications, benefits, and alternatives we re discussed and any questions were answered. Informed consent was obtained. The patient was placed s upine on the ultrasound table and prepped and draped in the usual sterile fashion. All elements of maximal barrier technique were utilized. Under ultrasound guidance, access into the right lower quadrant was obtained, via the paracentesis catheter system and direct ultrasound guidanc e. Approximately 5.8 liters of straw-colored fluid was removed. The patient was stable throughout the pr ocedure and remained stable upon discharge from Department of Radiology. IMPRESSION: Successful paracentesis under ultrasound guidance.
== END 2023-02-04 10:30 | disposition home or self-care (01) ==
LOC: RADPROMAIN 08:10
PROVIDERS: ATTEND Internal Medicine
DX: R18.8 Other ascites (principal)
CPT/HCPCS: 82565; 85027; 85610; 82105; 49083; P9047

== ENCOUNTER 2023-02-11 07:47 | Day surgery (SDC) | payer OTHER ==
[2023-02-11 08:37] VITALS: RESP 16; TEMP 98.7
[2023-02-11] MEDS: ALBUMIN HUMAN 25% 50 ML in EMPTY BAG 1 BAG IVPB SCH ×2 (10:02→10:12)
[2023-02-11 11:08] VITALS: BP 104/61; PULSE 68
--- NOTE | 2023-02-11 13:02 | US ---
Ultrasound-guided paracentesis. DATE OF EXAM: 02/11/2023 CLINICAL HISTORY: Ascites The procedure was discussed with the patient. The risks, complications, benefits, and alternatives we re discussed and any questions were answered. Informed consent was obtained. The patient was placed s upine on the ultrasound table and prepped and draped in the usual sterile fashion. All elements of maximal barrier technique were utilized. Under ultrasound guidance, access into the right lower quadrant was obtained, via the paracentesis catheter system and direct ultrasound guidanc e. Approximately 4.9 liters of straw-colored fluid was removed. The patient was stable throughout the pr ocedure and remained stable upon discharge from Department of Radiology. IMPRESSION: Successful paracentesis under ultrasound guidance.
== END 2023-02-11 10:25 | disposition home or self-care (01) ==
LOC: RADPROMAIN 07:47
PROVIDERS: ATTEND Internal Medicine
DX: R18.8 Other ascites (principal)
CPT/HCPCS: 49083; P9047

== ENCOUNTER 2023-02-18 08:01 | Day surgery (SDC) | payer OTHER ==
[2023-02-18 09:19] VITALS: RESP 16; TEMP 97.8
[2023-02-18 09:44] VITALS: BP 122/73; PULSE 68
--- NOTE | 2023-02-18 09:48 | US ---
EXAMINATION TYPE: US abdomen limited DATE OF EXAM: 02/18/2023 COMPARISON: Liver ultrasound 11/20/2022 CLINICAL INDICATION: Male, 62 years old with history of cirrhosis; TECHNIQUE: Multiple sonographic images of the right upper quadrant are obtained. FINDINGS: EXAM MEASUREMENTS: Liver Length: 19.3 cm Gallbladder Wall: 0.3 cm CBD: 0.3 cm Right Kidney: 11.1 x 4.4 x 5.0 cm [employer]MIN[employer]RATOR NOTES: Pancreas: Limited vis due to gas Liver: irregular and enlarged Gallbladder: Stone noted Evidence for sonographic Lemon's sign: no CBD: wnl Right Kidney: wnl Poor position of pancreas due to overlying bowel gas. Liver demonstrates a cirrhotic appearance with surface nodularity and coarse in echotexture. No obvious lesion identified. Cholelithiasis demonstrat ed. No wall thickening. Negative sonographic Lemon sign. Common bile duct is within normal limits. R ight kidney demonstrate no evidence of hydronephrosis, nephrolithiasis, or solid mass. Corticomedulla ry differentiation is maintained. Moderate volume ascites identified. IMPRESSION: 1. Hepatic cirrhosis without focal lesion identified. 2. Cholelithiasis without evidence for acute cholecystitis. 3. Moderate volume ascites.
--- NOTE | 2023-02-18 10:55 | US ---
Ultrasound-guided paracentesis. DATE OF EXAM: 02/18/2023 CLINICAL HISTORY: Ascites The procedure was discussed with the patient. The risks, complications, benefits, and alternatives we re discussed and any questions were answered. Informed consent was obtained. The patient was placed s upine on the ultrasound table and prepped and draped in the usual sterile fashion. All elements of maximal barrier technique were utilized. Under ultrasound guidance, access into the right lower quadrant was obtained, via the paracentesis catheter system and direct ultrasound guidanc e. Approximately 4.4 liters of straw-colored fluid was removed. The patient was stable throughout the pr ocedure and remained stable upon discharge from Department of Radiology. IMPRESSION: Successful paracentesis under ultrasound guidance.
== END 2023-02-18 09:55 | disposition home or self-care (01) ==
LOC: RADPROMAIN 08:01
PROVIDERS: ATTEND Internal Medicine
DX: R18.8 Other ascites (principal); K80.20 Calculus of gallbladder without cholecystitis without obstruction; K74.60 Unspecified cirrhosis of liver
CPT/HCPCS: 49083; 76705

== ENCOUNTER 2023-02-25 08:00 | Day surgery (SDC) | payer OTHER ==
[2023-02-25 09:23] VITALS: RESP 16; TEMP 98
[2023-02-25 10:56] VITALS: BP 121/73; PULSE 68
--- NOTE | 2023-02-25 16:34 | US ---
EXAMINATION TYPE: US paracentesis abd w/image DATE OF EXAM: 02/25/2023 CLINICAL HISTORY: 62-year-old male K70.31, referred for weekly paracentesis for ascites The procedure was discussed with the patient. The risks, complications, benefits, and alternatives we re discussed and any questions were answered. Informed consent was obtained. The patient was placed supine on the ultrasound table and prepped and draped in the usual sterile fas hion. All elements of maximal barrier technique were utilized. Under ultrasound guidance, access into the right lower quadrant ascites was obtained, via the 5 Turkish one-step paracentesis catheter system and direct ultrasound guidance. Approximately 4.9 liters of straw-colored fluid was removed. The patient was stable throughout the pr ocedure and remained stable upon discharge from Department of Radiology. IMPRESSION: Successful therapeutic paracentesis under ultrasound guidance. 4.9 L of fluid removed.
== END 2023-02-25 10:35 | disposition home or self-care (01) ==
LOC: RADPROMAIN 08:00
PROVIDERS: ATTEND Internal Medicine
DX: R18.8 Other ascites (principal)
CPT/HCPCS: 36415; 49083

== ENCOUNTER 2023-03-04 08:07 | Day surgery (SDC) | payer OTHER ==
[2023-03-04 09:01] VITALS: RESP 16; TEMP 98.5
[2023-03-04] MEDS: ALBUMIN HUMAN 25% 50 ML in EMPTY BAG 1 BAG IVPB SCH ×4 (09:09→10:13)
[2023-03-04 11:02] VITALS: BP 126/75; PULSE 73
--- NOTE | 2023-03-04 12:01 | US ---
Ultrasound-guided paracentesis. DATE OF EXAM: 03/04/2023 CLINICAL HISTORY: Ascites The procedure was discussed with the patient. The risks, complications, benefits, and alternatives we re discussed and any questions were answered. Informed consent was obtained. The patient was placed s upine on the ultrasound table and prepped and draped in the usual sterile fashion. All elements of maximal barrier technique were utilized. Under ultrasound guidance, access into the right lower quadrant was obtained, via the paracentesis catheter system and direct ultrasound guidanc e. Approximately 6.1 liters of straw-colored fluid was removed. The patient was stable throughout the pr ocedure and remained stable upon discharge from Department of Radiology. IMPRESSION: Successful paracentesis under ultrasound guidance.
== END 2023-03-04 10:25 | disposition home or self-care (01) ==
LOC: RADPROMAIN 08:07
PROVIDERS: ATTEND Internal Medicine
DX: R18.8 Other ascites (principal)
CPT/HCPCS: 49083; P9047

== ENCOUNTER 2023-03-11 07:50 | Day surgery (SDC) | payer OTHER ==
[2023-03-11 09:02] VITALS: RESP 16
[2023-03-11] MEDS: ALBUMIN HUMAN 25% 50 ML in EMPTY BAG 1 BAG IVPB SCH ×3 (09:24→09:30)
--- NOTE | 2023-03-11 09:58 | US ---
Ultrasound-guided paracentesis. DATE OF EXAM: 03/11/2023 CLINICAL HISTORY: Ascites The procedure was discussed with the patient. The risks, complications, benefits, and alternatives we re discussed and any questions were answered. Informed consent was obtained. The patient was placed s upine on the ultrasound table and prepped and draped in the usual sterile fashion. All elements of maximal barrier technique were utilized. Under ultrasound guidance, access into the right lower quadrant was obtained, via the paracentesis catheter system and direct ultrasound guidanc e. Approximately 4.7 liters of straw-colored fluid was removed. The patient was stable throughout the pr ocedure and remained stable upon discharge from Department of Radiology. IMPRESSION: Successful paracentesis under ultrasound guidance.
[2023-03-11 10:38] VITALS: BP 126/72; PULSE 78; TEMP 98
== END 2023-03-11 09:55 | disposition home or self-care (01) ==
LOC: RADPROMAIN 07:50
PROVIDERS: ATTEND Internal Medicine
DX: R18.8 Other ascites (principal)
CPT/HCPCS: 49083; P9047

== ENCOUNTER 2023-03-18 08:05 | Day surgery (SDC) | payer OTHER ==
[2023-03-18 08:59] VITALS: TEMP 98
[2023-03-18] MEDS: ALBUMIN HUMAN 25% 50 ML in EMPTY BAG 1 BAG IVPB SCH ×2 (09:34→09:52)
[2023-03-18 09:51] VITALS: BP 118/74; PULSE 67; RESP 18
--- NOTE | 2023-03-18 10:03 | US ---
Ultrasound-guided paracentesis. DATE OF EXAM: 03/18/2023 CLINICAL HISTORY: Ascites The procedure was discussed with the patient. The risks, complications, benefits, and alternatives we re discussed and any questions were answered. Informed consent was obtained. The patient was placed s upine on the ultrasound table and prepped and draped in the usual sterile fashion. All elements of maximal barrier technique were utilized. Under ultrasound guidance, access into the right lower quadrant was obtained, via the paracentesis catheter system and direct ultrasound guidanc e. Approximately 5 liters of straw-colored fluid was removed. The patient was stable throughout the proc edure and remained stable upon discharge from Department of Radiology. IMPRESSION: Successful paracentesis under ultrasound guidance.
== END 2023-03-18 10:05 | disposition home or self-care (01) ==
LOC: RADPROMAIN 08:05
PROVIDERS: ATTEND Internal Medicine
DX: R18.8 Other ascites (principal)
CPT/HCPCS: 36415; 49083; P9047

== ENCOUNTER 2023-03-26 08:00 | Day surgery (SDC) | payer OTHER ==
[2023-03-26 09:24] VITALS: TEMP 98.6
[2023-03-26] MEDS: ALBUMIN HUMAN 25% 50 ML in EMPTY BAG 1 BAG IVPB SCH ×3 (09:45→10:18)
[2023-03-26 09:52] VITALS: RESP 16
[2023-03-26 11:14] VITALS: BP 129/73; PULSE 70
--- NOTE | 2023-03-26 14:33 | US ---
Ultrasound-guided paracentesis. DATE OF EXAM: 03/26/2023 CLINICAL HISTORY: Ascites The procedure was discussed with the patient. The risks, complications, benefits, and alternatives we re discussed and any questions were answered. Informed consent was obtained. The patient was placed s upine on the ultrasound table and prepped and draped in the usual sterile fashion. All elements of maximal barrier technique were utilized. Under ultrasound guidance, access into the right lower quadrant was obtained, via the paracentesis catheter system and direct ultrasound guidanc e. Approximately 6.6 liters of straw-colored fluid was removed. The patient was stable throughout the pr ocedure and remained stable upon discharge from Department of Radiology. IMPRESSION: Successful paracentesis under ultrasound guidance.
== END 2023-03-26 10:50 | disposition home or self-care (01) ==
LOC: RADPROMAIN 08:00
PROVIDERS: ATTEND Internal Medicine
DX: R18.8 Other ascites (principal)
CPT/HCPCS: 49083; P9047

== ENCOUNTER → 2023-04-01 | Outpatient (CLI) | payer OTHER ==
[2023-04-01 11:09] LABS: ALT 27 U/L (4-49); AST 37 U/L (17-59); African American GFR (CKD) >90 (>60 ml/min/1.73 sqM); Albumin 3.4 g/dL (3.5-5.0); Alkaline Phosphatase 96 U/L (38-126); Anion Gap 9 mmol/L; Blood Urea Nitrogen 11 mg/dL (9-20); Calcium 8.7 mg/dL (8.4-10.2); Carbon Dioxide 21 mmol/L (22-30); Chloride 97 mmol/L (98-107); Globulin 3.4 g/dL; Glucose 88 mg/dL (74-99); Non-African American GFR(CKD) >90 (>60 ml/min/1.73 sqM); Sodium 127 mmol/L (137-145); Total Bilirubin 1.5 mg/dL (0.2-1.3); Total Protein 6.8 g/dL (6.3-8.2)
== END | disposition home or self-care (01) ==
LOC: LABWHC1 09:14
PROVIDERS: ATTEND Internal Medicine Gastroenterology
DX: K70.31 Alcoholic cirrhosis of liver with ascites (principal)
CPT/HCPCS: 36415; 80053; 82105

== ENCOUNTER → 2023-04-01 | Outpatient (CLI) | payer OTHER ==
[2023-04-01 09:33] LABS: INR 1.2 (<1.2); Prothrombin Time 12.8 sec (10.0-12.5)
[2023-04-01 09:36] LABS: African American GFR (CKD) >90 (>60 ml/min/1.73 sqM); Non-African American GFR(CKD) 90 (>60 ml/min/1.73 sqM)
[2023-04-01 09:59] LABS: HCT 37.2 % (39.0-53.0); HGB 12.7 gm/dL (13.0-17.5); MCH 32.8 pg (25.0-35.0); MCHC 34.1 g/dL (31.0-37.0); MCV 96.2 fL (80.0-100.0); Platelet Count 77 k/uL (150-450); RBC 3.87 m/uL (4.30-5.90); RDW 14.2 % (11.5-15.5)
--- NOTE | 2023-04-01 10:13 | US ---
EXAMINATION TYPE: US liver DATE OF EXAM: 04/01/2023 COMPARISON: 03/26/2023. CLINICAL INDICATION: Male, 62 years old with history of K70.31 ALCOHOLIC CIRRHOSIS OF LIVER WITH ASCI BERTA; TECHNIQUE: Multiple sonographic images of the right upper quadrant are obtained. FINDINGS: EXAM MEASUREMENTS: Liver Length: 12.5 cm Gallbladder Wall: 0.3 cm CBD: 0.7 cm Right Kidney: 11.2 x 3.7 x 5.3 cm Pancreas: wnl Liver: wnl Gallbladder: Hyperechoic foci with shadowing present Evidence for sonographic Lemon's sign: No CBD: dilated Right Kidney: wnl Ascites seen all 4 quadrants; paracentesis scheduled for tomorrow IMPRESSION: 1. Hepatic cirrhosis with small ascites. 2. Cholelithiasis.
== END | disposition home or self-care (01) ==
LOC: RADUSWWP 09:10
PROVIDERS: ATTEND Internal Medicine Gastroenterology
DX: K70.31 Alcoholic cirrhosis of liver with ascites (principal); K80.20 Calculus of gallbladder without cholecystitis without obstruction
CPT/HCPCS: 76705; 82565; 85027; 85610

== ENCOUNTER 2023-04-02 08:10 | Day surgery (SDC) | payer OTHER ==
[2023-04-02 09:16] VITALS: RESP 16; TEMP 98.9
[2023-04-02] MEDS: ALBUMIN HUMAN 25% 50 ML in EMPTY BAG 1 BAG IVPB SCH ×3 (09:47→11:00)
[2023-04-02 10:37] VITALS: PULSE 67
[2023-04-02 11:02] VITALS: BP 103/63
--- NOTE | 2023-04-03 09:07 | US ---
EXAMINATION TYPE: US paracentesis abd w/image DATE OF EXAM: 04/02/2023 10:00 AM CLINICAL INDICATION:Male, 62 years old with history of R18.8 ASCITES; COMPARISON: 03/26/2023 ATTENDING: Dr. Ajay Cunha PROCEDURE: Informed consent was obtained. The risks of the procedure were extensively explained incl uding risk of damage to surrounding bowel with perforation and need for additional procedures. Proced ure was performed in the ultrasound procedure suite. Ultrasound imaging of the abdomen demonstrate as citic fluid. An appropriate access site was localized to the right lower abdomen. Timeout was taken p er protocol. The skin was prepped and draped in the usual sterile fashion and then locally anesthetiz ed with 1% lidocaine. The peritoneal cavity was then accessed via a 5-Italian one-step needle/cathete r. Approximately 5300 cc of clear straw-colored fluid was obtained. Postprocedural imaging of the a bdomen demonstrate a minimal amount of abdominal fluid. Patient tolerated procedure well without immediate complication. Hemostasis at the procedural site w as obtained with a sterile bandage placed. The patient was monitored in the holding area following th e procedure and was subsequently discharged in stable condition. IMPRESSION: Ultrasound guided paracentesis, with approximately 5300 cc of clear straw-colored fluid drained. No immediate complications were evident.
== END 2023-04-02 10:45 | disposition home or self-care (01) ==
LOC: RADPROMAIN 08:10
PROVIDERS: ATTEND Internal Medicine
DX: R18.8 Other ascites (principal)
CPT/HCPCS: 36415; 49083; P9047

== ENCOUNTER 2023-04-09 08:09 | Day surgery (SDC) | payer OTHER ==
[2023-04-09 08:55] VITALS: RESP 16; TEMP 99.1
[2023-04-09 10:31] VITALS: BP 110/68; PULSE 74
--- NOTE | 2023-04-09 10:54 | US ---
EXAMINATION TYPE: US paracentesis abd w/image DATE OF EXAM: 04/09/2023 9:20 AM CLINICAL INDICATION:Male, 62 years old with history of R18.8; COMPARISON: 04/02/2023. ATTENDING: Dr. Ajay Cunha PROCEDURE: Informed consent was obtained. The risks of the procedure were extensively explained incl uding risk of damage to surrounding bowel with perforation and need for additional procedures. Proced ure was performed in the ultrasound procedure suite. Ultrasound imaging of the abdomen demonstrate as citic fluid. An appropriate access site was localized to the right lower abdomen. Timeout was taken p er protocol. The skin was prepped and draped in the usual sterile fashion and then locally anesthetiz ed with 1% lidocaine. The peritoneal cavity was then accessed via a 5-Libyan one-step needle/cathete r. Approximately 3700 cc of clear straw-colored fluid was obtained. Postprocedural imaging of the ab domen demonstrate a minimal amount of abdominal fluid. Patient tolerated procedure well without immediate complication. Hemostasis at the procedural site w as obtained with a sterile bandage placed. The patient was monitored in the holding area following th e procedure and was subsequently discharged in stable condition. IMPRESSION: Ultrasound guided paracentesis, with approximately 3700 cc of clear straw-colored fluid drained. No immediate complications were evident.
== END 2023-04-09 10:26 | disposition home or self-care (01) ==
LOC: RADPROMAIN 08:09
PROVIDERS: ATTEND Internal Medicine
DX: R18.8 Other ascites (principal)
CPT/HCPCS: 49083

== ENCOUNTER 2023-04-16 08:01 | Day surgery (SDC) | payer OTHER ==
[2023-04-16 09:07] VITALS: RESP 16; TEMP 98.9
[2023-04-16 10:18] VITALS: BP 122/73; PULSE 70
--- NOTE | 2023-04-16 13:21 | US ---
EXAMINATION TYPE: US paracentesis abd w/image DATE OF EXAM: 04/16/2023 CLINICAL HISTORY: 62-year-old male R18.8, ascites, referred for routine outpatient paracentesis for cirrhosis. The procedure was discussed with the patient. The risks, complications, benefits, and alternatives we re discussed and any questions were answered. Informed consent was obtained. The patient was placed s upine on the ultrasound table and prepped and draped in the usual sterile fashion. All elements of maximal barrier technique were utilized. Ultrasound was utilized to determine the precise skin entry site along the right flank/right lower qu adrant. A 5 Hebrew one-step catheter and trocar technique was utilized to access the ascites collection under direct ultrasound guidance. Approximately 4.8 liters of straw-colored fluid was removed. The patient was stable throughout the pr ocedure and remained stable upon discharge from Department of Radiology. IMPRESSION: Successful therapeutic paracentesis under ultrasound guidance. 4.8 L of fluid removed.
== END 2023-04-16 10:05 | disposition home or self-care (01) ==
LOC: RADPROMAIN 08:01
PROVIDERS: ATTEND Internal Medicine
DX: R18.8 Other ascites (principal)
CPT/HCPCS: 49083

== ENCOUNTER 2023-04-23 08:32 | Day surgery (SDC) | payer OTHER, MEDICARE ==
[2023-04-23 09:33] LABS: Mean Platelet Volume 7.8
[2023-04-23 09:37] LABS: Platelet Count 63 k/uL (150-450)
[2023-04-23 10:01] VITALS: TEMP 98.9
[2023-04-23] MEDS: ALBUMIN HUMAN 25% 50 ML in EMPTY BAG 1 BAG IVPB SCH ×2 (10:29→10:41)
[2023-04-23 10:49] VITALS: BP 119/75; PULSE 70; RESP 16
--- NOTE | 2023-04-23 11:47 | US ---
Ultrasound-guided paracentesis. DATE OF EXAM: 04/23/2023 CLINICAL HISTORY: Ascites The procedure was discussed with the patient. The risks, complications, benefits, and alternatives we re discussed and any questions were answered. Informed consent was obtained. The patient was placed s upine on the ultrasound table and prepped and draped in the usual sterile fashion. All elements of maximal barrier technique were utilized. Under ultrasound guidance, access into the right lower quadrant was obtained, via the paracentesis catheter system and direct ultrasound guidanc e. Approximately 4.5 liters of straw-colored fluid was removed. The patient was stable throughout the pr ocedure and remained stable upon discharge from Department of Radiology. IMPRESSION: Successful paracentesis under ultrasound guidance.
== END 2023-04-23 11:05 | disposition home or self-care (01) ==
LOC: RADPROMAIN 08:32
PROVIDERS: ATTEND Internal Medicine
DX: R18.8 Other ascites (principal)
CPT/HCPCS: 85049; 36415; 49083; P9047

== ENCOUNTER 2023-04-30 08:36 | Day surgery (SDC) | payer OTHER, MEDICARE ==
[2023-04-30] MEDS ORDERED: ALBUMIN HUMAN 25% 50 ML in EMPTY BAG 1 BAG IVPB SCH (08:45)
[2023-04-30 09:24] LABS: Mean Platelet Volume 8.5
[2023-04-30 09:27] LABS: INR 1.3 (<1.2); Prothrombin Time 13.5 sec (10.0-12.5)
[2023-04-30 09:28] LABS: African American GFR (CKD) >90 (>60 ml/min/1.73 sqM); Non-African American GFR(CKD) >90 (>60 ml/min/1.73 sqM); Platelet Count 37 k/uL (150-450)
[2023-04-30 09:30] VITALS: BP 113/63; PULSE 78; RESP 16; TEMP 98.5
--- NOTE | 2023-04-30 12:16 | US ---
EXAMINATION TYPE: US discontinued paracentesis DATE OF EXAM: 04/30/2023 11:07 AM CLINICAL INDICATION:Male, 62 years old with history of K70.31 Alcoholic Cirrhosis; COMPARISON: 04/23/2023 ATTENDING: Dr. Ajay Cunha PROCEDURE: Patient was scanned for preprocedural evaluation for ascites. Blood work came back in the patient's platelets are low. The exam was canceled at that time. IMPRESSION: Canceled ultrasound guided paracentesis secondary to low platelets.
== END 2023-04-30 10:50 | disposition home or self-care (01) ==
LOC: RADPROMAIN 08:36
PROVIDERS: ATTEND Internal Medicine
DX: Z53.8 Procedure and treatment not carried out for other reasons (principal)
CPT/HCPCS: 36415; 76705; 82565; 85049; 85610

== ENCOUNTER 2023-05-07 08:27 | Day surgery (SDC) | payer OTHER ==
[2023-05-07 09:04] VITALS: TEMP 99.2
[2023-05-07] MEDS: ALBUMIN HUMAN 25% 50 ML in EMPTY BAG 1 BAG IVPB SCH ×4 (09:30→10:38)
[2023-05-07 10:58] VITALS: BP 120/74; PULSE 72; RESP 18
--- NOTE | 2023-05-07 13:16 | US ---
EXAMINATION TYPE: US paracentesis abd w/image DATE OF EXAM: 05/07/2023 CLINICAL HISTORY: 62-year-old male K70.31, alcoholic cirrhosis of liver with ascites, weekly paracen tesis. The procedure was discussed with the patient. The risks, complications, benefits, and alternatives we re discussed and any questions were answered. Informed consent was obtained. The patient was placed s upine on the ultrasound table and prepped and draped in the usual sterile fashion. All elements of maximal barrier technique were utilized. Ultrasound was utilized to determine the precise skin entry site along the left right lower quadrant. A 5 Nepali One-Step catheter and trocar technique was utilized to access the ascites collection under direct ultrasound guidance. Approximately 6.9 liters of clear, straw-colored fluid was removed. Catheter was removed, hemostasis obtained, and a dressing placed. The patient was stable throughout the procedure and remained stable upon discharge from Department of Radiology. IMPRESSION: Successful therapeutic paracentesis under ultrasound guidance. 6.9 L of fluid removed.
== END 2023-05-07 10:50 | disposition home or self-care (01) ==
LOC: RADPROMAIN 08:27
PROVIDERS: ATTEND Internal Medicine
DX: R18.8 Other ascites (principal)
CPT/HCPCS: 49083; P9047

== ENCOUNTER 2023-05-14 08:55 | Day surgery (SDC) | payer OTHER, MEDICARE ==
[2023-05-14 10:13] VITALS: RESP 16; TEMP 99
--- NOTE | 2023-05-14 11:42 | US ---
Ultrasound-guided paracentesis. DATE OF EXAM: 05/14/2023 CLINICAL HISTORY: Ascites The procedure was discussed with the patient. The risks, complications, benefits, and alternatives we re discussed and any questions were answered. Informed consent was obtained. The patient was placed s upine on the ultrasound table and prepped and draped in the usual sterile fashion. All elements of maximal barrier technique were utilized. Under ultrasound guidance, access into the right lower quadrant was obtained, via the paracentesis catheter system and direct ultrasound guidanc e. Approximately 4.1 liters of straw-colored fluid was removed. The patient was stable throughout the pr ocedure and remained stable upon discharge from Department of Radiology. IMPRESSION: Successful paracentesis under ultrasound guidance.
[2023-05-14 11:44] VITALS: BP 109/70; PULSE 74
== END 2023-05-14 11:10 | disposition home or self-care (01) ==
LOC: RADPROMAIN 08:55
PROVIDERS: ATTEND Internal Medicine
DX: R18.8 Other ascites (principal)
CPT/HCPCS: 49083

== ENCOUNTER 2023-05-28 08:33 | Day surgery (SDC) | payer MEDICARE, OTHER ==
[2023-05-28 09:30] VITALS: TEMP 98.6
[2023-05-28] MEDS: ALBUMIN HUMAN 25% 50 ML in EMPTY BAG 1 BAG IVPB SCH (09:57)
[2023-05-28 10:33] VITALS: RESP 12
[2023-05-28 11:04] VITALS: BP 107/66
[2023-05-28 11:05] VITALS: PULSE 60
--- NOTE | 2023-05-28 11:13 | US ---
Ultrasound-guided paracentesis. DATE OF EXAM: 05/28/2023 CLINICAL HISTORY: Ascites The procedure was discussed with the patient. The risks, complications, benefits, and alternatives we re discussed and any questions were answered. Informed consent was obtained. The patient was placed s upine on the ultrasound table and prepped and draped in the usual sterile fashion. All elements of maximal barrier technique were utilized. Under ultrasound guidance, access into the right lower quadrant was obtained, via the paracentesis catheter system and direct ultrasound guidanc e. Approximately 8.4 liters of straw-colored fluid was removed. The patient was stable throughout the pr ocedure and remained stable upon discharge from Department of Radiology. IMPRESSION: Successful paracentesis under ultrasound guidance.
== END 2023-05-28 11:15 | disposition home or self-care (01) ==
LOC: RADPROMAIN 08:33
PROVIDERS: ATTEND Internal Medicine
DX: R18.8 Other ascites (principal)
CPT/HCPCS: 36415; 49083; P9047

== ENCOUNTER 2023-06-11 08:24 | Day surgery (SDC) | payer MEDICARE, OTHER ==
[2023-06-11 09:54] VITALS: RESP 18; TEMP 98.4
[2023-06-11] MEDS: ALBUMIN HUMAN 25% 50 ML in EMPTY BAG 1 BAG IVPB SCH (10:15)
[2023-06-11 10:28] VITALS: BP 116/72; PULSE 124
--- NOTE | 2023-06-11 13:20 | US ---
EXAMINATION TYPE: US paracentesis abd w/image DATE OF EXAM: 06/11/2023 CLINICAL HISTORY: 63-year-old male K70.31, alcoholic cirrhosis of liver with ascites, biweekly parac entesis. The procedure was discussed with the patient. The risks, complications, benefits, and alternatives we re discussed and any questions were answered. Informed consent was obtained. The patient was placed s upine on the ultrasound table and prepped and draped in the usual sterile fashion. All elements of maximal barrier technique were utilized. Ultrasound was utilized to determine the precise skin entry site along the left lower quadrant/left f lank. A 5 Thai One-Step catheter and trocar technique was utilized to access the ascites collection under direct ultrasound guidance. Approximately 6.7 liters of clear, straw-colored fluid was removed. Catheter was removed, hemostasis obtained, and a dressing placed. The patient was stable throughout the procedure and remained stable upon discharge from Department of Radiology. IMPRESSION: Successful therapeutic paracentesis under ultrasound guidance. 6.7 L of fluid removed.
== END 2023-06-11 10:45 | disposition home or self-care (01) ==
LOC: RADPROMAIN 08:24
PROVIDERS: ATTEND Internal Medicine
DX: K70.31 Alcoholic cirrhosis of liver with ascites (principal)
CPT/HCPCS: 49083; P9047

== ENCOUNTER 2023-06-25 08:43 | Day surgery (SDC) | payer MEDICARE, OTHER ==
[2023-06-25 09:41] VITALS: TEMP 98.2
[2023-06-25] MEDS: ALBUMIN HUMAN 25% 50 ML in EMPTY BAG 1 BAG IVPB SCH (10:07)
[2023-06-25 11:01] VITALS: RESP 16
--- NOTE | 2023-06-25 11:26 | US ---
Ultrasound-guided paracentesis. DATE OF EXAM: 06/25/2023 CLINICAL HISTORY: Ascites The procedure was discussed with the patient. The risks, complications, benefits, and alternatives we re discussed and any questions were answered. Informed consent was obtained. The patient was placed s upine on the ultrasound table and prepped and draped in the usual sterile fashion. All elements of maximal barrier technique were utilized. Under ultrasound guidance, access into the right lower quadrant was obtained, via the paracentesis catheter system and direct ultrasound guidanc e. Approximately 9.2 liters of straw-colored fluid was removed. The patient was stable throughout the pr ocedure and remained stable upon discharge from Department of Radiology. IMPRESSION: Successful paracentesis under ultrasound guidance.
[2023-06-25 11:38] VITALS: BP 140/80; PULSE 69
== END 2023-06-25 11:15 | disposition home or self-care (01) ==
LOC: RADPROMAIN 08:43
PROVIDERS: ATTEND Internal Medicine
DX: R18.8 Other ascites (principal)
CPT/HCPCS: 49083; P9047

== ENCOUNTER 2023-07-09 08:27 | Day surgery (SDC) | payer MEDICARE, OTHER ==
[2023-07-09] MEDS: ALBUMIN HUMAN 25% 50 ML in EMPTY BAG 1 BAG IVPB SCH (10:14)
[2023-07-09 10:36] VITALS: RESP 18; TEMP 99.1
[2023-07-09 11:16] VITALS: BP 118/64; PULSE 75
--- NOTE | 2023-07-14 09:30 | US ---
EXAMINATION TYPE: US paracentesis abd w/image DATE OF EXAM: 07/09/2023 9:32 AM CLINICAL INDICATION:Male, 63 years old with history of K70.31 ALCOHOLIC CIRRHOSIS OF LIVER WITH ASCIT ES; COMPARISON: 06/25/2023. ATTENDING: Dr. Ajay Cunha PROCEDURE: Informed consent was obtained. The risks of the procedure were extensively explained incl uding risk of damage to surrounding bowel with perforation and need for additional procedures. Proced ure was performed in the ultrasound procedure suite. Ultrasound imaging of the abdomen demonstrate as citic fluid. An appropriate access site was localized to the right lower abdomen. Timeout was taken p er protocol. The skin was prepped and draped in the usual sterile fashion and then locally anesthetiz ed with 1% lidocaine. The peritoneal cavity was then accessed via a 5-Lebanese one-step needle/cathete r. Approximately 8100 cc fluid was obtained. Postprocedural imaging of the abdomen demonstrate a mi nimal amount of abdominal fluid. Patient tolerated procedure well without immediate complication. Hemostasis at the procedural site w as obtained with a sterile bandage placed. The patient was monitored in the holding area following th e procedure and was subsequently discharged in stable condition. IMPRESSION: Ultrasound guided paracentesis, with approximately 8100 cc of fluid drained. No immediate complicat ions were evident.
== END 2023-07-09 11:05 | disposition home or self-care (01) ==
LOC: RADPROMAIN 08:27
PROVIDERS: ATTEND Internal Medicine
DX: K70.31 Alcoholic cirrhosis of liver with ascites (principal)
CPT/HCPCS: 49083; P9047

== ENCOUNTER 2023-07-23 08:33 | Day surgery (SDC) | payer MEDICARE, OTHER ==
[2023-07-23 10:33] VITALS: RESP 18; TEMP 98.2
[2023-07-23] MEDS: ALBUMIN HUMAN 25% 50 ML in EMPTY BAG 1 BAG IVPB SCH (10:55)
[2023-07-23 11:17] VITALS: BP 116/70; PULSE 67
--- NOTE | 2023-07-23 16:57 | US ---
EXAMINATION TYPE: US paracentesis abd w/image DATE OF EXAM: 07/23/2023 10:12 AM CLINICAL INDICATION:Male, 63 years old with history of K70.31 ALCOHOLIC CIRRHOSIS OF LIVER WITH ASCIT ES; COMPARISON: 07/09/2023 ATTENDING: Dr. Ajay Cunha PROCEDURE: Informed consent was obtained. The risks of the procedure were extensively explained incl uding risk of damage to surrounding bowel with perforation and need for additional procedures. Proced ure was performed in the ultrasound procedure suite. Ultrasound imaging of the abdomen demonstrate as citic fluid. An appropriate access site was localized to the right lower abdomen. Timeout was taken p er protocol. The skin was prepped and draped in the usual sterile fashion and then locally anesthetiz ed with 1% lidocaine. The peritoneal cavity was then accessed via a 5-Icelandic one-step needle/cathete r. Approximately 3700 cc of clear straw-colored fluid was obtained. Postprocedural imaging of the ab domen demonstrate a minimal amount of abdominal fluid. Patient tolerated procedure well without immediate complication. Hemostasis at the procedural site w as obtained with a sterile bandage placed. The patient was monitored in the holding area following th e procedure and was subsequently discharged in stable condition. IMPRESSION: Ultrasound guided paracentesis, with approximately 3700 cc of clear straw-colored fluid drained. No immediate complications were evident.
== END 2023-07-23 11:30 | disposition home or self-care (01) ==
LOC: RADPROMAIN 08:33
PROVIDERS: ATTEND Internal Medicine
DX: K70.31 Alcoholic cirrhosis of liver with ascites (principal)
CPT/HCPCS: 49083; P9047

== ENCOUNTER → 2023-08-05 | Outpatient (CLI) | payer MEDICARE ==
--- NOTE | 2023-08-05 12:13 | XR ---
EXAMINATION TYPE: XR chest 2V DATE OF EXAM: 08/05/2023 12:06 PM CLINICAL INDICATION:Male, 63 years old with history of J069 VIRAL UPPER RESPIRATORY TRACT INFCTION; P HH COMPARISON: 07/13/2021 TECHNIQUE: XR chest 2V Frontal and lateral views of the chest. FINDINGS: Lungs/Pleura: There is no evidence of pleural effusion, focal consolidation, or pneumothorax. Pulmonary vascularity: Unremarkable. Heart/mediastinum: Cardiomediastinal silhouette is unremarkable. Musculoskeletal: No acute osseous pathology. IMPRESSION: No acute cardiopulmonary disease/process.
== END | disposition home or self-care (01) ==
LOC: RADXRMAIN 11:38
PROVIDERS: ATTEND Internal Medicine
DX: J06.9 Acute upper respiratory infection, unspecified (principal)
CPT/HCPCS: 71046

== ENCOUNTER 2023-08-06 08:43 | Day surgery (SDC) | payer MEDICARE, OTHER ==
[2023-08-06 10:42] VITALS: RESP 16
[2023-08-06] MEDS: ALBUMIN HUMAN 25% 50 ML in EMPTY BAG 1 BAG IVPB SCH (10:50)
--- NOTE | 2023-08-06 11:19 | US ---
Ultrasound-guided paracentesis. DATE OF EXAM: 08/06/2023 CLINICAL HISTORY: Ascites The procedure was discussed with the patient. The risks, complications, benefits, and alternatives we re discussed and any questions were answered. Informed consent was obtained. The patient was placed s upine on the ultrasound table and prepped and draped in the usual sterile fashion. All elements of maximal barrier technique were utilized. Under ultrasound guidance, access into the right lower quadrant was obtained, via the paracentesis catheter system and direct ultrasound guidanc e. Approximately 7.6 liters of straw-colored fluid was removed. The patient was stable throughout the pr ocedure and remained stable upon discharge from Department of Radiology. IMPRESSION: Successful paracentesis under ultrasound guidance.
[2023-08-06] MEDS: ALBUMIN HUMAN 25% 50 ML in EMPTY BAG 1 BAG IVPB ONE (11:33)
[2023-08-06 11:36] VITALS: BP 109/75; PULSE 79; TEMP 97.9
== END 2023-08-06 12:00 | disposition home or self-care (01) ==
LOC: RADPROMAIN 08:43
PROVIDERS: ATTEND Internal Medicine
DX: R18.8 Other ascites (principal)
CPT/HCPCS: 49083; P9073; P9047

== ENCOUNTER 2023-08-16 18:23 | Inpatient (IN) | payer MEDICARE, OTHER ==
--- NOTE | 2023-08-16 18:37 | ED ---
General Adult HPI - General Chief complaint: Weakness Stated complaint: Weakness Time Seen by Provider: 08/16/23 18:29 Source: EMS Mode of arrival: EMS Limitations: no limitations - History of Present Illness Initial comments: This patient is a 63-year-old man with history of cirrhosis, who presents with complaint that he is feeling weak and fatigued. He states this been going on 2 to 3 days. He had gone to see his physician Dr. Cho, in the clinic who reportedly told him he was concerned about possibility of abdominal infection. The patient has been having some generalized abdominal discomfort for 2 days and reports that he had a fever at home to 102 degrees. Patient has not noticed change in urination or bowel movements. No nausea or vomiting. Onset/Timin -: days(s) Location: abdomen Radiation: non-radiation Quality: dull Consistency: constant Improves with: none Worsens with: movement Associated Symptoms: loss of appetite, malaise Treatments Prior to Arrival: none - Related Data Home Medications Medication Instructions Recorded Confirmed traZODone HCL [Desyrel] 100 mg PO HS 06/18/21 08/28/23 Midodrine [ProAmatine] 5 mg PO Q8H 07/13/21 08/28/23 Albuterol Inhaler [Ventolin Hfa 2 puff INHALATION RT-TID PRN 08/06/23 08/28/23 Inhaler] Tuberculin Ppd (Skin Test) 1 dose INTRADERMA HS 08/28/23 08/28/23 [Tubersol] Previous Rx's Medication Instructions Recorded Pantoprazole [Protonix] 40 mg PO AC-BRKFST tab 06/22/21 Folic Acid 1 mg PO DAILY tab 07/18/21 Potassium Chloride ER [K-Dur 20] 20 meq PO DAILY tablet 07/18/21 Furosemide [Lasix] 40 mg PO DAILY tab 08/27/23 Lactulose [Cephulac] 10 gm PO TID ml 08/27/23 Spironolactone [Aldactone] 25 mg PO BID tab 08/27/23 Allergies Allergy/AdvReac Type Severity Reaction Status Date / Time lisinopril AdvReac causes Verified 08/16/23 19:37 pancreatitis Review of Systems ROS Statement: Those systems with pertinent positive or pertinent negative responses have been documented in the HPI. ROS Other: All systems not noted in ROS Statement are negative. Constitutional: Reports: chills, weakness. Denies: fever Respiratory: Denies: cough, dyspnea Cardiovascular: Reports: edema. Denies: chest pain, palpitations Gastrointestinal: Reports: abdominal pain. Denies: nausea, vomiting, diarrhea, constipation Genitourinary: Denies: dysuria, hematuria Musculoskeletal: Denies: back pain Skin: Denies: rash Neurological: Denies: headache, weakness Past Medical History Past Medical History: Hypertension, Liver Disease, Pneumonia Additional Past Medical History / Comment(s): Liver cirrhosis, splenomegaly, pancreatitis-pt states pancreatitis was side effect from Lisinopril, pt denies hx of alcoholism/drinking heavily, cellulitis with sepsis, ASCITES History of Any Multi-Drug Resistant Organisms: None Reported Past Surgical History: No Surgical Hx Reported Additional Past Surgical History / Comment(s): dental extraction, cataract bilateral - Pt states he was awake for both procedure and has never had general anesthesia Past Anesthesia/Blood Transfusion Reactions: No Reported Reaction, Unable to Obtain Additional Past Anesthesia/Blood Transfusion Reaction / Comment(s): Pt has never had anesthesia Past Psychological History: No Psychological Hx Reported Smoking Status: Never smoker Past Alcohol Use History: None Reported Past Drug Use History: None Reported - Past Family History Mother Family Medical History: Hypertension Additional Family Medical History / Comment(s): Mother lived to be 91 yrs old. Father Family Medical History: CVA/TIA Additional Family Medical History / Comment(s): Father of a CVA at the age of 65yrs. Son(s) Family Medical History: No Reported History Daughter(s) Family Medical History: No Reported History General Exam General appearance: alert, in no apparent distress Head exam: Present: atraumatic, normocephalic Eye exam: Present: normal appearance. Absent: scleral icterus, conjunctival injection Neck exam: Present: normal inspection Respiratory exam: Present: normal lung sounds bilaterally. Absent: respiratory distress, wheezes, rales, rhonchi, stridor, accessory muscle use Cardiovascular Exam: Present: regular rate, normal rhythm, normal heart sounds. Absent: systolic murmur, diastolic murmur, rubs, gallop GI/Abdominal exam: Present: soft, tenderness (Mild diffuse tenderness no rebound or guarding). Absent: distended, guarding, rebound, rigid, mass, pulsatile mass, hernia Extremities exam: Present: normal inspection, normal capillary refill. Absent: pedal edema, calf tenderness Back exam: Present: normal inspection. Absent: CVA tenderness (R), CVA tenderness (L) Neurological exam: Present: alert Skin exam: Present: warm, dry, intact, normal color. Absent: rash Course Vital Signs 08/16/23 08/16/23 08/16/23 18:30 21:27 21:28 Temperature 97.6 F Pulse Rate 90 96 96 Respiratory 18 18 Rate Blood Pressure 148/67 135/45 135/45 O2 Sat by Pulse 98 95 96 Oximetry 08/16/23 08/16/23 08/17/23 22:00 23:00 00:00 Temperature Pulse Rate 91 92 93 Respiratory Rate Blood Pressure 135/45 123/57 135/62 O2 Sat by Pulse 99 99 98 Oximetry 08/17/23 08/17/23 08/17/23 01:00 01:44 02:50 Temperature Pulse Rate 92 91 86 Respiratory 18 16 Rate Blood Pressure 127/66 129/76 121/78 O2 Sat by Pulse 98 98 97 Oximetry EKG Findings - EKG Results: EKG: interpreted by TENZIN, sinus rhythm (Rate 91 bpm), normal axis, normal QRS, normal ST/T, no acute changes Medical Decision Making - Medical Decision Making The patient had chest x-ray that I interpreted as negative for acute infiltrate, pneumothorax, congestive heart failure. Was pt. sent in by a medical professional or institution ([facility] Whelan, [employer], urgent care, hospital, or long term...) When possible be specific @ -Yes the patient was sent by his primary physician to have further evaluation related to abdominal pain and fatigue. Did you speak to anyone other than the patient for history (EMS, parent, family, police, friend...)? What history was obtained from this source @ -[No] Did you review nursing and triage notes (agree or disagree)? Why? @ -[I reviewed and agree with nursing and triage notes] Were old charts reviewed (outside hosp., previous admission, EMS record, old E KG, old radiological studies, urgent care reports/EKG's, long term records)? Report findings @ -[Yes, old charts were reviewed] Differential Diagnosis (chest pain, altered mental status, abdominal pain women, abdominal pain men, vaginal bleeding, weakness, fever, dyspnea, syncope, headache, dizziness, GI bleed, back pain, seizure, CVA, palpatations, mental health, musculoskeletal)? @ -[Differential Fever: Pneumonia, viral URI, endocarditis, myocarditis, pericarditis, otitis, sinusitis, peritonsillar Abscess, retropharyngeal Abscess, epiglottitis, peritonitis, appendicitis, Vicky cystitis, diverticulitis, hepatitis, colitis, UTI, PID, TOA, pyelonephritis, prostatitis, epididymitis, meningitis, encephalitis, pulmonary embolism, CVA, thyroid storm, pancreatitis, adrenal crisis, cavernous sinus thrombosis, this is not meant to be an all-inclusive list. EKG interpreted by me (3pts min.). @ -[As above] X-rays interpreted by me (1pt min.). @ -[None done] CT interpreted by me (1pt min.). @ -[None done] U/S interpreted by me (1pt. min.). @ -[None done] What testing was considered but not performed or refused? (CT, X-rays, U/S, labs)? Why? @ -[None] What meds were considered but not given or refused? Why? @ -[None] Did you discuss the management of the patient with other professionals (professionals i.e. , PA, [employer]ER, lab, RT, psych nurse, social studies teacher, polymerization helper, teacher, sheriffs officer, lining caser)? Give summary @ -[No] Was smoking cessation discussed for >3mins.? @ -[No] Was critical care preformed (if so, how long)? @ -[No] Were there social determinants of health that impacted care today? How? (Homelessness, low income, unemployed, alcoholism, drug addiction, transportation, low edu. Level, literacy, decrease access to med. care, fci, rehab)? @ -[No] Was there de-escalation of care discussed even if they declined (Discuss DNR or withdrawal of care, Hospice)? DNR status @ -[No] What co-morbidities impacted this encounter? (DM, HTN, Smoking, COPD, CAD, Cancer, CVA, ARF, Chemo, Hep., AIDS, mental health diagnosis, sleep apnea, morbid obesity)? @ -[Chronic liver disease Was patient admitted / discharged? Hospital course, mention meds given and route, prescriptions, significant lab abnormalities, going to OR and other pertinent info. @ -[Patient is 63-year-old man with history of chronic liver disease with some abdominal pain, fever by history, and progressive fatigue. He had seen his primary physician who sent him for further evaluation. I discussed the case with Dr. Cho, I would like the patient admitted and will arrange further evaluation and treatment for possible peritonitis though at this point the discomfort is minimal. Patient also moderately hyponatremic though there is chronic element. Undiagnosed new problem with uncertain prognosis? @ -[No] Drug Therapy requiring intensive monitoring for toxicity (Heparin, Nitro, Insul in, Cardizem)? @ -[No] Were any procedures done? @ -[No] Diagnosis/symptom? @ -[Acute on chronic hyponatremia Abdominal pain, acute History of fever Acute, or Chronic, or Acute on Chronic? @ -[ Uncomplicated (without systemic symptoms) or Complicated (systemic symptoms)? @ -complicated by fatigue Side effects of treatment? @ -[No] Exacerbation, Progression, or Severe Exacerbation? @ -[No] Poses a threat to life or bodily function? How? (Chest pain, [place], [place], pneumonia, PE, COPD, DKA, ARF, appy, cholecystitis, CVA, Diverticulitis, Homicidal, Suicidal, threat to staff... and all critical care pts) @ -[At this point requires further evaluation to determine if there is peritonitis - Lab Data Result diagrams: 08/27/23 07:41 08/27/23 07:41 Lab Results 08/16/23 08/16/23 08/16/23 Range/Units 19:35 19:35 19:35 WBC 10.7 H (3.8-10.6) k/uL RBC 4.09 L (4.30-5.90) m/uL Hgb 13.2 (13.0-17.5) gm/dL Hct 38.1 L (39.0-53.0) % MCV 93.2 D (80.0-100.0) fL MCH 32.2 (25.0-35.0) pg MCHC 34.5 (31.0-37.0) g/dL RDW 15.7 H (11.5-15.5) % Plt Count 108 L D (150-450) k/uL MPV 8.3 Neutrophils % 78 % Lymphocytes % 3 % Monocytes % 16 % Eosinophils % 1 % Basophils % 0 % Neutrophils # 8.3 H (1.3-7.7) k/uL Lymphocytes # 0.3 L (1.0-4.8) k/uL Monocytes # 1.8 H (0-1.0) k/uL Eosinophils # 0.1 (0-0.7) k/uL Basophils # 0.0 (0-0.2) k/uL PT 15.0 H (10.0-12.5) sec INR 1.5 H (<1.2) APTT 24.1 (22.0-30.0) sec Sodium 120 L (137-145) mmol/L Potassium 5.1 (3.5-5.1) mmol/L Chloride 92 L (98-107) mmol/L Carbon Dioxide 18 L (22-30) mmol/L Anion Gap 10 mmol/L BUN 25 H (9-20) mg/dL Creatinine 0.74 (0.66-1.25) mg/dL Est GFR (CKD-EPI)AfAm >90 (>60 ml/min/1.73 sqM) Est GFR (CKD-EPI)NonAf >90 (>60 ml/min/1.73 sqM) Glucose 80 (74-99) mg/dL Plasma Lactic Acid Mason (0.7-2.0) mmol/L Calcium 8.0 L (8.4-10.2) mg/dL Magnesium 2.3 (1.6-2.3) mg/dL Total Bilirubin 3.3 H (0.2-1.3) mg/dL AST 38 (17-59) U/L ALT 22 (4-49) U/L Alkaline Phosphatase 67 (38-126) U/L Troponin I (0.000-0.034) ng/mL C-Reactive Protein 2.3 H (<1.0) mg/dL NT-Pro-B Natriuret Pep 507 pg/mL Total Protein 6.6 (6.3-8.2) g/dL Albumin 2.9 L (3.5-5.0) g/dL TSH 0.272 L (0.465-4.680) mIU/L Urine Color Urine Appearance (Clear) Urine pH (5.0-8.0) Ur Specific Weather[place] (1.001-1.035) Urine Protein (Negative) Urine Glucose (UA) (Negative) Urine Ketones (Negative) Urine Blood (Negative) Urine Nitrite (Negative) Urine Bilirubin (Negative) Urine Urobilinogen (<2.0) mg/dL Ur Leukocyte Esterase (Negative) Influenza Type A (PCR) (Not Detectd) Influenza Type B (PCR) (Not Detectd) RSV (PCR) (Not Detectd) SARS-CoV-2 (PCR) (Not Detectd) 08/16/23 08/16/23 08/16/23 Range/Units 19:35 19:35 19:35 WBC (3.8-10.6) k/uL RBC (4.30-5.90) m/uL Hgb (13.0-17.5) gm/dL Hct (39.0-53.0) % MCV (80.0-100.0) fL MCH (25.0-35.0) pg MCHC (31.0-37.0) g/dL RDW (11.5-15.5) % Plt Count (150-450) k/uL MPV Neutrophils % % Lymphocytes % % Monocytes % % Eosinophils % % Basophils % % Neutrophils # (1.3-7.7) k/uL Lymphocytes # (1.0-4.8) k/uL Monocytes # (0-1.0) k/uL Eosinophils # (0-0.7) k/uL Basophils # (0-0.2) k/uL PT (10.0-12.5) sec INR (<1.2) APTT (22.0-30.0) sec Sodium (137-145) mmol/L Potassium (3.5-5.1) mmol/L Chloride (98-107) mmol/L Carbon Dioxide (22-30) mmol/L Anion Gap mmol/L BUN (9-20) mg/dL Creatinine (0.66-1.25) mg/dL Est GFR (CKD-EPI)AfAm (>60 ml/min/1.73 sqM) Est GFR (CKD-EPI)NonAf (>60 ml/min/1.73 sqM) Glucose (74-99) mg/dL Plasma Lactic Acid Mason 1.7 (0.7-2.0) mmol/L Calcium (8.4-10.2) mg/dL Magnesium (1.6-2.3) mg/dL Total Bilirubin (0.2-1.3) mg/dL AST (17-59) U/L ALT (4-49) U/L Alkaline Phosphatase (38-126) U/L Troponin I 0.013 (0.000-0.034) ng/mL C-Reactive Protein (<1.0) mg/dL NT-Pro-B Natriuret Pep pg/mL Total Protein (6.3-8.2) g/dL Albumin (3.5-5.0) g/dL TSH (0.465-4.680) mIU/L Urine Color Urine Appearance (Clear) Urine pH (5.0-8.0) Ur Specific [place] (1.001-1.035) Urine Protein (Negative) Urine Glucose (UA) (Negative) Urine Ketones (Negative) Urine Blood (Negative) Urine Nitrite (Negative) Urine Bilirubin (Negative) Urine Urobilinogen (<2.0) mg/dL Ur Leukocyte Esterase (Negative) Influenza Type A (PCR) Not Detected (Not Detectd) Influenza Type B (PCR) Not Detected (Not Detectd) RSV (PCR) Not Detected (Not Detectd) SARS-CoV-2 (PCR) Not Detected (Not Detectd) 08/16/23 Range/Units 21:27 WBC (3.8-10.6) k/uL RBC (4.30-5.90) m/uL Hgb (13.0-17.5) gm/dL Hct (39.0-53.0) % MCV (80.0-100.0) fL MCH (25.0-35.0) pg MCHC (31.0-37.0) g/dL RDW (11.5-15.5) % Plt Count (150-450) k/uL MPV Neutrophils % % Lymphocytes % % Monocytes % % Eosinophils % % Basophils % % Neutrophils # (1.3-7.7) k/uL Lymphocytes # (1.0-4.8) k/uL Monocytes # (0-1.0) k/uL Eosinophils # (0-0.7) k/uL Basophils # (0-0.2) k/uL PT (10.0-12.5) sec INR (<1.2) APTT (22.0-30.0) sec Sodium (137-145) mmol/L Potassium (3.5-5.1) mmol/L Chloride (98-107) mmol/L Carbon Dioxide (22-30) mmol/L Anion Gap mmol/L BUN (9-20) mg/dL Creatinine (0.66-1.25) mg/dL Est GFR (CKD-EPI)AfAm (>60 ml/min/1.73 sqM) Est GFR (CKD-EPI)NonAf (>60 ml/min/1.73 sqM) Glucose (74-99) mg/dL Plasma Lactic Acid Mason (0.7-2.0) mmol/L Calcium (8.4-10.2) mg/dL Magnesium (1.6-2.3) mg/dL Total Bilirubin (0.2-1.3) mg/dL AST (17-59) U/L ALT (4-49) U/L Alkaline Phosphatase (38-126) U/L Troponin I (0.000-0.034) ng/mL C-Reactive Protein (<1.0) mg/dL NT-Pro-B Natriuret Pep pg/mL Total Protein (6.3-8.2) g/dL Albumin (3.5-5.0) g/dL TSH (0.465-4.680) mIU/L Urine Color Yellow Urine Appearance Clear (Clear) Urine pH 6.0 (5.0-8.0) Ur Specific [place] 1.030 (1.001-1.035) Urine Protein Trace H (Negative) Urine Glucose (UA) Negative (Negative) Urine Ketones 1+ H (Negative) Urine Blood Negative (Negative) Urine Nitrite Negative (Negative) Urine Bilirubin Negative (Negative) Urine Urobilinogen 6.0 (<2.0) mg/dL Ur Leukocyte Esterase Negative (Negative) Influenza Type A (PCR) (Not Detectd) Influenza Type B (PCR) (Not Detectd) RSV (PCR) (Not Detectd) SARS-CoV-2 (PCR) (Not Detectd) Disposition Clinical Impression: Hyponatremia, Abdominal pain Disposition: ADMITTED IP TO THIS HOSP Condition: Fair Is patient prescribed a controlled substance at d/c from ED?: No
[2023-08-16 20:06] LABS: INR 1.5 (<1.2); Partial Thromboplastin Time 24.1 sec (22.0-30.0)
[2023-08-16 20:08] LABS: ALT 22 U/L (4-49); AST 38 U/L (17-59); African American GFR (CKD) >90 (>60 ml/min/1.73 sqM); Albumin 2.9 g/dL (3.5-5.0); Alkaline Phosphatase 67 U/L (38-126); Anion Gap 10 mmol/L; Blood Urea Nitrogen 25 mg/dL (9-20); C Reactive Protein 2.3 mg/dL (<1.0); Carbon Dioxide 18 mmol/L (22-30); Chloride 92 mmol/L (98-107); Glucose 80 mg/dL (74-99); Magnesium 2.3 mg/dL (1.6-2.3); Non-African American GFR(CKD) >90 (>60 ml/min/1.73 sqM); Sodium 120 mmol/L (137-145); Total Bilirubin 3.3 mg/dL (0.2-1.3); Total Protein 6.6 g/dL (6.3-8.2)
[2023-08-16 20:12] LABS: NT-Pro-B-Type Natriuretic Pept 507 pg/mL
[2023-08-16 20:26] LABS: Potassium 5.1 mmol/L (3.5-5.1)
[2023-08-16 20:41] LABS: Basophils % (A) 0 %; Eosinophils # (A) 0.1 k/uL (0-0.7); Eosinophils % (A) 1 %; HCT 38.1 % (39.0-53.0); HGB 13.2 gm/dL (13.0-17.5); Lymphocytes # (A) 0.3 k/uL (1.0-4.8); Lymphocytes % (A) 3 %; MCH 32.2 pg (25.0-35.0); MCHC 34.5 g/dL (31.0-37.0); Mean Platelet Volume 8.3; Monocytes # (A) 1.8 k/uL (0-1.0); Monocytes % (A) 16 %; Neutrophils # (A) 8.3 k/uL (1.3-7.7); Neutrophils % (A) 78 %; RBC 4.09 m/uL (4.30-5.90); RDW 15.7 % (11.5-15.5); WBC 10.7 k/uL (3.8-10.6)
[2023-08-16 20:45] LABS: MCV 93.2 fL (80.0-100.0); Platelet Count 108 k/uL (150-450)
[2023-08-16 22:43] LABS: Appearance,Urine Clear (Clear); Bilirubin,Urine Negative (Negative); Blood,Urine Negative (Negative); Color,Urine Yellow; Glucose,Urine (UA) Negative (Negative); Ketones,Urine 1+ (Negative); Leukocyte Esterase,Urine Negative (Negative); Nitrite,Urine Negative (Negative); Protein,Urine Trace (Negative)
[2023-08-16] MEDS ORDERED: NALOXONE 0.4 MG/ML 1 ML VIAL IV PRN (23:47)
[2023-08-17] MEDS: SODIUM CHLORIDE 0.9% 1,000 ML IV SCH (00:10)
--- NOTE | 2023-08-17 00:18 | XR ---
EXAMINATION TYPE: XR chest 2V DATE OF EXAM: 08/16/2023 8:44 PM CLINICAL INDICATION:Male, 63 years old with history of Weakness; [facility] COMPARISON: 08/05/2023 TECHNIQUE: XR chest 2V. Frontal and lateral views of the chest.. FINDINGS: Lines/Tubes/Devices: EKG leads overlie the chest. No indwelling lines are seen. Heart/mediastinum: Cardiomediastinal silhouette is stable, heart size is towards the upper limits of normal. Pulmonary vascularity: Not increased, Lungs/Pleura: There is no evidence of pleural effusion, focal consolidation, or pneumothorax. Musculoskeletal: No acute osseous abnormality demonstrated in the limits of the exam. Degenerative c hanges of the spine and shoulders. Other findings: None. IMPRESSION: No acute cardiopulmonary abnormality.
[2023-08-17] MEDS ORDERED: ACETAMINOPHEN TAB 325 MG TAB PO PRN (02:58)
[2023-08-17] MEDS: ACETAMINOPHEN TAB 325 MG TAB PO STA (03:14)
[2023-08-17] MEDS: ACETAMINOPHEN TAB 500 MG TAB PO STA (03:19)
[2023-08-17] MEDS: IOPAMIDOL CONTRAST (ORAL USE) VIAL PO PRN (10:13)
--- NOTE | 2023-08-17 13:10 | CT ---
EXAMINATION TYPE: CT abdomen pelvis w con DATE OF EXAM: 08/17/2023 COMPARISON: 06/18/2021 HISTORY: 63-year-old male Generalized weakness, abdominal pain TECHNIQUE: Contiguous axial scanning of the abdomen and pelvis following administration of 100 ml Iso derek 300 IV contrast. Delayed images through the kidneys and coronal/sagittal reconstructions perform ed. CT DLP: 1288.6 mGycm Automated exposure control for dose reduction was used. FINDINGS: Heart normal size without pericardial effusion. Three-vessel coronary artery calcifications . Some patchy posterior basilar opacity on the right representing atelectasis. No pleural effusion. Distal esophageal varices. Additional collaterals within the gastrohepatic ligament region. Cirrhotic and shrunken liver morphology. Indeterminate hypodense lesion anterior right hepatic dome m easuring 3.2 cm. Portal venous system is patent. No biliary ductal dilatation. Small 1.9 cm diverticu lum of the second portion of the duodenum projecting into the pancreatic head region. 9 mm gallstone. No abnormal gallbladder distention. Adrenal glands, left kidney, and pancreas within normal limits. Tiny 8 mm cortical cyst right kidney. Mild splenomegaly at 14.0 cm measured on coronal series. There is moderate abdominal pelvic ascites. Compared to 06/18/2021, there has been interval enlargement of the patient's umbilical hernia now temi uring 10.1 x 7.8 cm and protruding outside of the abdominal wall. This contains a few small bowel loo ps, mesentery, and ascites fluid. Some small bowel loops are dilated up to 3.8 cm. Unclear if this he rnia represents a transition point. Some mild wall thickening along the ascending colon may be due to the liver disease and hypoalbuminem ia. Scattered mild stool. Bladder urine distended. Moderate pelvic ascites. No pelvic lymphadenopathy seen. Bones: Hypertrophic facet arthropathy mid to lower lumbar spine with grade 1, nearly grade 2 anteroli sthesis L4-L5. Chronic appearing inferior endplate deformity T12, new from 06/18/2021 but still suspec t chronic. IMPRESSION: 1. CIRRHOSIS WITH PORTAL VENOUS HYPERTENSION (MODERATE ABDOMINOPELVIC ASCITES, DISTAL ESOPHAGEAL VARI THUY, AND SPLENOMEGALY AT 14.0 CM). 2. A 3.2 CM INDETERMINATE LESION ANTERIOR RIGHT HEPATIC DOME. RECOMMEND LIVER MRI TO FURTHER CHARACTE RIZE AND EXCLUDE HCC. 3. INTERVAL ENLARGEMENT OF THE PATIENT'S UMBILICAL HERNIA COMPARED TO 2021 NOW MEASURING 10.1 CM WIDE AND CONTAINING A FEW SMALL BOWEL LOOPS. Given other small bowel loops within the abdomen mildly dila jaron up to 3.8 cm, surveillance follow-up is recommended to exclude a transition point here and early small bowel obstruction. 4. Mild inferior endplate deformity of T12 is new from 202 but still favored to be chronic. Clinical ly correlate.
[2023-08-17] MEDS: MIDODRINE 5 MG TAB PO SCH (15:19)
[2023-08-17] MEDS: SPIRONOLACTONE 25 MG TAB PO SCH (15:19)
[2023-08-17] MEDS: FUROSEMIDE 40 MG TAB PO SCH (15:19)
--- NOTE | 2023-08-17 19:09 | P.HPIM ---
History of Present Illness H&P Date: 08/17/23 Chief Complaint: Abdominal pain 63-year-old male patient with history of hypertension, liver cirrhosis, presents to ED with complaint of fatigue and weakness which has been going on for past few days. Patient reports that he has had some generalized abdominal pain for 2 days with high fever at a maximum of 102 degrees at home; patient reports that he went to see his PCP and was instructed to present to ED for concern of possible abdominal infection; patient denies any cough or chest congestion; no urinary symptoms reported -Blood work completed in ED reveals a WBC of 10.7, hemoglobin of 13.2 and platelet count of 108, PT 15 with INR of 1.5, sodium 120, potassium 5.1, BUNs/creatinine of 25/0.74, CRP of 2.30; UA is completed and is unremarkable -- Chest x-ray is negative for any acute cardiopulmonary abnormality CT of the abdomen and pelvis reveals cirrhosis with portal venous hypertension, moderate abdominopelvic ascites and distal esophageal varices with splenomegaly at 14 cm; a 2 cm lesion in anterior right hepatic dome; MRI is recommended; interval enlargement of umbilical hernia -Patient has been placed on IV Rocephin; IR is consulted for therapeutic p aracentesis Review of Systems REVIEW OF SYSTEMS: CONSTITUTIONAL: Reports fever, malaise and fatigue. HEENT: No recent visual problems or hearing problems. Denied any sore throat. CARDIOVASCULAR: No chest pain, orthopnea, PND, no palpitations, no syncope. PULMONARY: No shortness of breath, no cough, no hemoptysis. GASTROINTESTINAL: abdominal pain. NEUROLOGICAL: No headaches, no weakness, no numbness. HEMATOLOGICAL: Denies any bleeding or petechiae. GENITOURINARY: Denies any burning micturition, frequency, or urgency. MUSCULOSKELETAL/RHEUMATOLOGICAL: Denies any joint pain, swelling, or any muscle pain. ENDOCRINE: Denies any polyuria or polydipsia. The rest of the 14-point review of systems is negative. Past Medical History Past Medical History: Hypertension, Liver Disease, Pneumonia Additional Past Medical History / Comment(s): Liver cirrhosis, splenomegaly, pancreatitis-pt states pancreatitis was side effect from Lisinopril, pt denies hx of alcoholism/drinking heavily, cellulitis with sepsis, ASCITES History of Any Multi-Drug Resistant Organisms: None Reported Past Surgical History: No Surgical Hx Reported Additional Past Surgical History / Comment(s): dental extraction, cataract bilateral - Pt states he was awake for both procedure and has never had general anesthesia Past Anesthesia/Blood Transfusion Reactions: No Reported Reaction, Unable to Obtain Additional Past Anesthesia/Blood Transfusion Reaction / Comment(s): Pt has never had anesthesia Past Psychological History: No Psychological Hx Reported Additional Psychological History / Comment(s): He uses a cane to ambulate. He can drive and states he is indpendent. Smoking Status: Never smoker Past Alcohol Use History: None Reported Additional Past Alcohol Use History / Comment(s): had not drank alcohol since 2016 Past Drug Use History: None Reported - Past Family History Mother Family Medical History: Hypertension Additional Family Medical History / Comment(s): Mother lived to be 91 yrs old. Father Family Medical History: CVA/TIA Additional Family Medical History / Comment(s): Father of a CVA at the age of 65yrs. Son(s) Family Medical History: No Reported History Daughter(s) Family Medical History: No Reported History Medications and Allergies Home Medications Medication Instructions Recorded Confirmed Type traZODone HCL [Desyrel] 100 mg PO HS 06/18/21 08/16/23 History Pantoprazole [Protonix] 40 mg PO AC-BRKFST tab 06/22/21 08/16/23 Rx Midodrine [ProAmatine] 5 mg PO Q8H 07/13/21 08/16/23 History Folic Acid 1 mg PO DAILY tab 07/18/21 08/16/23 Rx Furosemide [Lasix] 40 mg PO BID@0900,1600 tab 07/18/21 08/16/23 Rx Potassium Chloride ER [K-Dur 20] 20 meq PO DAILY tablet 07/18/21 08/16/23 Rx Albuterol Inhaler [Ventolin Hfa 2 puff INHALATION RT-TID PRN 08/06/23 08/16/23 History Inhaler] Spironolactone [Aldactone] 100 mg PO DAILY 08/16/23 08/16/23 History Allergies Allergy/AdvReac Type Severity Reaction Status Date / Time lisinopril AdvReac causes Verified 08/16/23 19:37 pancreatitis Physical Exam Vitals: Vital Signs Temp Pulse Pulse Resp BP BP Pulse Ox 08/17/23 07:23 87 16 129/76 93 L 08/17/23 04:47 18 08/17/23 03:33 97.5 F L 93 20 110/73 96 08/17/23 02:50 86 16 121/78 97 08/17/23 01:44 91 18 129/76 98 08/17/23 01:00 92 127/66 98 08/17/23 00:00 93 135/62 98 08/16/23 23:00 92 123/57 99 08/16/23 22:00 91 135/45 99 08/16/23 21:28 96 18 135/45 96 08/16/23 21:27 96 135/45 95 08/16/23 18:30 97.6 F 90 18 148/67 98 Intake and Output 08/16/23 08/17/23 08/17/23 22:59 06:59 14:59 Intake Total 560 Balance 560 Intake: Oral 560 Other: Weight 81.193 kg 81.193 kg General appearance: Jaundiced Eyes: Present: anicteric sclerae, EOMI, PERRLA, normal appearance Neck: Present: normal ROM. Absent: lymphadenopathy, rigidity, thyromegaly Thyroid: bilateral: normal size, negative: enlarged, nodule Respiratory: bilateral: CTA, negative: rales, rhonchi, wheezing Cardiovascular: regular: normal: S1, [id number] General gastrointestinal: normal bowel sounds, soft and distended; generalized tenderness Genitourinary Comment(s): deferred Integumentary: Present: normal turgor. Absent: jaundiced, rash, ulcer Neurologic: Present: CNII-XII intact. Absent: focal deficits Musculoskeletal: Present: gait normal, strength equal bilaterally Psychiatric: Present: A&O x's 3, appropriate affect, intact judgment & insight Results CBC & Chem 7: 08/16/23 19:35 08/16/23 19:35 Labs: Abnormal Lab Results - Last 24 Hours (Table) 08/16/23 08/16/23 08/16/23 Range/Units 19:35 19:35 19:35 WBC 10.7 H (3.8-10.6) k/uL RBC 4.09 L (4.30-5.90) m/uL Hct 38.1 L (39.0-53.0) % RDW 15.7 H (11.5-15.5) % Plt Count 108 L D (150-450) k/uL Neutrophils # 8.3 H (1.3-7.7) k/uL Lymphocytes # 0.3 L (1.0-4.8) k/uL Monocytes # 1.8 H (0-1.0) k/uL PT 15.0 H (10.0-12.5) sec INR 1.5 H (<1.2) Sodium 120 L (137-145) mmol/L Chloride 92 L (98-107) mmol/L Carbon Dioxide 18 L (22-30) mmol/L BUN 25 H (9-20) mg/dL Calcium 8.0 L (8.4-10.2) mg/dL Total Bilirubin 3.3 H (0.2-1.3) mg/dL C-Reactive Protein 2.3 H (<1.0) mg/dL Albumin 2.9 L (3.5-5.0) g/dL TSH 0.272 L (0.465-4.680) mIU/L Urine Protein (Negative) Urine Ketones (Negative) 08/16/23 Range/Units 21:27 WBC (3.8-10.6) k/uL RBC (4.30-5.90) m/uL Hct (39.0-53.0) % RDW (11.5-15.5) % Plt Count (150-450) k/uL Neutrophils # (1.3-7.7) k/uL Lymphocytes # (1.0-4.8) k/uL Monocytes # (0-1.0) k/uL PT (10.0-12.5) sec INR (<1.2) Sodium (137-145) mmol/L Chloride (98-107) mmol/L Carbon Dioxide (22-30) mmol/L BUN (9-20) mg/dL Calcium (8.4-10.2) mg/dL Total Bilirubin (0.2-1.3) mg/dL C-Reactive Protein (<1.0) mg/dL Albumin (3.5-5.0) g/dL TSH (0.465-4.680) mIU/L Urine Protein Trace H (Negative) Urine Ketones 1+ H (Negative) Thrombosis Risk Factor Assmnt - Choose All That Apply Any of the Below Risk Factors Present?: No Other Risk Factors: Yes Each Risk Factor Represents 2 Points: Age 61-74 years Other congenital or acquired thrombophilia - If yes, enter type in comment: No Thrombosis Risk Factor Assessment Total Risk Factor Score: 2 Thrombosis Risk Factor Assessment Level: Low Risk Assessment and Plan Assessment: 1. Abdominal pain/distention --History of liver cirrhosis; given new onset pain and worsening distention, patient is placed on IV Rocephin 2 g daily empirically -IR is consulted for therapeutic paracentesis; ascitic fluid labs are placed -- Recommend GI consult tomorrow morning 2. Hepatic cirrhosis with ascites/esophageal varices/portal hypertension -Patient remains on Lasix 40 mg twice daily along with Aldactone 100 mg daily; patient to undergo therapeutic paracentesis 3. Hepatic lesion; MRI is recommended for further evaluation to rule out HCC Will order MRI and alpha-fetoprotein 4. Gastroesophageal reflux disease; Protonix 40 mg daily 5. Insomnia/sleep disorder; trazodone 100 mg p.o. nightly DVT prophylaxis; SCDs CODE STATUS; full code
[2023-08-17] MEDS: traZODone HCL 100 MG TAB PO SCH (22:42)
[2023-08-18] MEDS: MORPHINE SULFATE 2 MG/ML SYRINGE IVP PRN (01:12)
[2023-08-18] MEDS: PANTOPRAZOLE 40 MG TABLET PO SCH (06:40)
[2023-08-18] MEDS: ALBUTEROL HFA INHALER INHALATION PRN (08:35)
[2023-08-18] MEDS ORDERED: POTASSIUM CHLORIDE ER 20 MEQ TAB.ER PO SCH (09:00)
[2023-08-18 09:17] LABS: Procalcitonin 0.11 ng/mL (0.02-0.09)
[2023-08-18 09:24] LABS: ALT 18 U/L (10-49); AST 34 U/L (14-35); Albumin/Globulin Ratio 1.03 Ratio (1.60-3.17); Alkaline Phosphatase 61 U/L (41-126); BUN/Creat Ratio 20.33 Ratio (12.00-20.00); Bilirubin, Conjugated 1.17 mg/dL (0.20-0.40); Bilirubin,Unconjugated 1.13 mg/dL (0.20-1.00); Blood Urea Nitrogen 18.3 mg/dL (9.0-27.0); Calcium 8.3 mg/dL (8.7-10.3); Carbon Dioxide 16.8 mmol/L (21.6-31.8); Chloride 91 mmol/L (96-109); Globulin 2.9 g/dL (1.6-3.3); Glucose 101 mg/dL (70-110); Potassium 4.7 mmol/L (3.5-5.5); Sodium 121 mmol/L (135-145); Total Bilirubin 2.3 mg/dL (0.3-1.2); Total Protein 5.9 g/dL (6.2-8.2)
[2023-08-18 10:26] LABS: Basophils # (A) 0.01 X 10*3/uL (0.00-0.10); Basophils % (A) 0.2 %; Eosinophils # (A) 0.05 X 10*3/uL (0.04-0.35); Eosinophils % (A) 0.8 %; HCT 37.2 % (39.6-50.0); Immature Platelet Fraction 2.5 % (1.1-6.1); Lymphocytes # (A) 0.24 X 10*3/uL (0.90-5.00); Lymphocytes % (A) 3.6 %; MCH 32.4 pg (27.0-32.0); MCHC 34.9 g/dL (32.0-37.0); MCV 92.8 FL (80.0-97.0); Mean Platelet Volume 9.7 FL (9.5-12.2); Monocytes # (A) 0.69 X 10*3/uL (0.20-1.00); Monocytes % (A) 10.5 %; NRBC Per 100 WBC 0 X 10*3/uL (0.00-0.01); Neutrophils # (A) 5.56 X 10*3/uL (1.80-7.70); Neutrophils % (A) 84.3 %; Platelet Count 80 X 10*3/uL (140-440); RBC 4.01 X 10*6/uL (4.40-5.60); RDW 15.6 % (11.5-14.5); WBC 6.59 X 10*3/uL (4.50-10.00)
[2023-08-18 11:50] LABS: Alpha Fetoprotein, Tumor Mkr 4.3 ng/mL (0.00-7.90)
[2023-08-18] MEDS: FOLIC ACID 1 MG TAB PO SCH (12:32)
[2023-08-18 13:41] LABS: Sodium 122 mmol/L (137-145)
[2023-08-18 14:24] LABS: African American GFR (CKD) >90 (>60 ml/min/1.73 sqM); Anion Gap 11 mmol/L; Blood Urea Nitrogen 20 mg/dL (9-20); Calcium 7.9 mg/dL (8.4-10.2); Carbon Dioxide 15 mmol/L (22-30); Chloride 96 mmol/L (98-107); Glucose 106 mg/dL (74-99); Non-African American GFR(CKD) >90 (>60 ml/min/1.73 sqM)
[2023-08-18 14:27] LABS: Potassium 4.9 mmol/L (3.5-5.1)
--- NOTE | 2023-08-18 14:30 | CT ---
EXAMINATION TYPE: CT brain wo con DATE OF EXAM: 08/18/2023 COMPARISON: None HISTORY: Encephalopathy CT DLP: 1095.[address] of the brain was performed. The ventricles, basal cisterns and sulci overlying the cerebral convexities demonstrate mild enlargem ent. There is no evidence for intracranial hemorrhage or sulcal effacement. There is decreased attenuation about the periventricular white matter and deep white matter of both c erebral hemispheres, compatible with chronic small vessel ischemia. Differential diagnosis does inclu de demyelination. No mass effects are seen.No midline shift. Osseous calvarium is intact. If symptoms persist consider MRI. IMPRESSION: 1. Age related atrophic and chronic small vessel ischemic change without acute intracranial process s een at this time.
--- NOTE | 2023-08-18 16:11 | US ---
EXAMINATION TYPE: US paracentesis abd w/image DATE OF EXAM: 08/18/2023 10:16 AM CLINICAL INDICATION:Male, 63 years old with history of ascites; COMPARISON: 08/06/2023 ATTENDING: Dr. Ajay Cunha PROCEDURE: Informed consent was obtained. The risks of the procedure were extensively explained incl uding risk of damage to surrounding bowel with perforation and need for additional procedures. Proced ure was performed in the ultrasound procedure suite. Ultrasound imaging of the abdomen demonstrate as citic fluid. An appropriate access site was localized to the right lower abdomen. Timeout was taken p er protocol. The skin was prepped and draped in the usual sterile fashion and then locally anesthetiz ed with 1% lidocaine. The peritoneal cavity was then accessed via a 5-Telugu one-step needle/cathete r. Approximately 4800 cc of clear straw-colored fluid was obtained. Samples were sent to the lab for analysis. Postprocedural imaging of the abdomen demonstrate a minimal amount of abdominal fluid. Patient tolerated procedure well without immediate complication. Hemostasis at the procedural site w as obtained with a sterile bandage placed. The patient was monitored in the holding area following th e procedure and was subsequently discharged in stable condition. IMPRESSION: Ultrasound guided paracentesis, with approximately 4800 cc of clear straw-colored fluid drained. Path ology results pending. No immediate complications were evident.
--- NOTE | 2023-08-18 19:23 | P.PN ---
Subjective Progress Note Date: 08/18/23 HISTORY OF PRESENT ILLNESS: This is a 63 year old male with a previous medical history significant for hypertension and hypertensive cardiovascular disease, hyperlipidemia, history of pancreatitis in the past along with prior history of sepsis due to cellulitis about 4 year ago, history of chronic alcoholic hepatitis with alcoholic liver cirrhosis with elevated coags liver function test. Patient presented to the emergency department 2 days ago for fatigue, weakness, abdominal pain, and fever of 102 degrees at home. Chest XR negative for acute cardiopulmonary process. CT of the abdomen/pelvis reveals cirrhosis with port venous hypterention, moderate ascites and distal esophageal varices with splenomegaly at 14 cm, a 2 cm lession anterior right hepatic dome. Patient was placed on IV Rocephin. IR was consulted for therapeutic paracentesis. MRI of the abdomen has been ordered. The brain CT showed age-related atrophic changes plus chronic small vessel ischemia without acute intracranial process. Blood work completed in ED reveals a WBC of 10.7, hemoglobin of 13.2 and platelet count of 108, PT 15 with INR of 1.5, sodium 120, potassium 5.1, BUNs/creatinine of 25/0.74, CRP of 2.30; UA is completed and is unremarkable. 08/17: Patient is lying in bed and is very lethargic at this time. Awaiting MRI of the abdomen. Patient did have ultrasound-guided paracentesis today with approximately 4800 cc of clear straw-colored fluid. Pathology pending. Continue 2 g of Rocephin IV once daily. Will start Lovenox 40 mg subcu daily for DVT prophylaxis. Continue current medications and pain management. Continue 1500 cc fluid restriction as well as oral nutrition supplementation. Sodium is up from 120 to 122 today. Patient remains a full code. REVIEW OF SYSTEMS: Constitutional: Positive fever, no chills, no night sweats. No weight change. Positive for weakness, positive for fatigue or lethargy. No daytime sleepiness. HEENT: No headache. No blurred vision or double vision, no loss of vision. No loss of Hearing, no ringing in the ears, no dizziness. No nasal drainage or congestion. No epistaxis. No sore throat. Lungs: No shortness of breath, no cough, no sputum production. No wheezing. Reports dyspnea with activity. Cardiovascular: No chest pain, positive for lower extremity edema. No palpitations. No paroxysmal nocturnal dyspnea. No orthopnea. No lighthea dedness or dizziness. No syncopal episodes. Abdominal: Reports abdominal pain and distention. No nausea, vomiting, diarrhea. No constipation. No bloody or tarry stools reports loss of appetite. Genitourinary: No dysuria, increased frequency, urgency. No urinary retention. Musculoskeletal: No myalgias. positive for muscle weakness, no gait dysfunction, no frequent falls. No back pain. No neck pain. Integumentary: No wounds, no lesions. No rash or pruritus. No unusual bruising. No change in hair or nails. Neurologic: No aphasia. No facial droop. No change in mentation. No head injury. No headache. No paralysis. No paresthesia. Psychiatric: No depression. No anxiety. No mood swings. Endocrine: No abnormal blood sugars. No weight change. PHYSICAL EXAMINATION: General: 63-year-old male laying down and lethargic. HEENT: Head is atraumatic, normocephalic, pupils were equal round reactive to light and recommendation, extraocular muscle movement were intact, sclera are deeply icteric, conjunctivae were pale, mucous membranes of the mouth are somewhat dry. Neck: Supple, no JVP, normal carotid upstroke bilaterally, no lymphadenopathy. Chest: Decreased breath sounds at the bases, no expiratory wheezes, no chest wall tenderness, no intercostal retractions. Heart: First heart sound is normal, second heart sounds normal there is BLANCA 2/6 located at the left sternal border Abdomen: Soft, distended, moderate ascites, generalized tenderness, positive bowel sounds. Extremities: There is +2 edema, no calf tenderness DP +2 bilaterally. Neurologic examination: Patient is awake and oriented X 2, cranial nerves II-12 appear grossly intact, muscle power were 4 out of 5 in upper extremities and 4 out of 5 in bilateral lower extremities, deep tendon reflexes normal sanya aterally. ASSESSMENT AND PLAN: 1. Acute on chronic alcohol hepatitis with alcoholic liver cirrhosis and ascites. Monitor patient's input and output and daily weight. 4200 cc removed via paracentesis. 2. Moderate amount of ascites. Paracentesis completed today. 3. Hypertension and hypertensive cardiovascular disease. Currently normotensive patient has been off his antihypertensive medications. 4. GERD. Continue patient on Protonix 40 mg orally once every day. 5. DVT prophylaxis. Bilateral knee-high TAMI hose. Lovenox 40 mg subcu daily. 6. Hyponatremia. Continue 0.9 normal saline at 50 cc an hour. 7. Admitted to inpatient. 8. Patient is a fall code. Impression and plan of care have been directed as dictated by the signing physician. Deanna Lopez, nurse practitioner acting as scribe for signing physician. Objective - Vital Signs Vital signs: Vital Signs Temp 97.5 F L 08/18/23 15:00 Pulse 83 08/18/23 15:00 Resp 16 08/18/23 15:00 BP 126/79 08/18/23 15:00 Pulse Ox 100 08/18/23 15:00 FiO2 Intake & Output 08/17/23 08/18/23 08/18/23 18:59 06:59 18:59 Intake Total 300 200 Output Total 250 Balance 300 200 -250 Weight 81.193 kg Intake: Oral 300 200 Output: Urine 250 Other: # Voids 2 - Labs CBC & Chem 7: 08/24/23 04:33 08/24/23 04:33 Labs: Abnormal Lab Results - Last 24 Hours (Table) 08/18/23 08/18/23 08/18/23 Range/Units 05:12 05:12 05:12 RBC 4.01 L (4.40-5.60) X 10*6/uL Hct 37.2 L (39.6-50.0) % MCH 32.4 H (27.0-32.0) pg RDW 15.6 H (11.5-14.5) % Plt Count 80 L (140-440) X 10*3/uL Lymphocytes # 0.24 L (0.90-5.00) X 10*3/uL Sodium 121 L (135-145) mmol/L Chloride 91 L (96-109) mmol/L Carbon Dioxide 16.8 L (21.6-31.8) mmol/L Anion Gap 13.20 H (4.00-12.00) mmol/L BUN/Creatinine Ratio 20.33 H (12.00-20.00) Ratio Glucose (74-99) mg/dL Calcium 8.3 L (8.7-10.3) mg/dL Total Bilirubin 2.3 H (0.3-1.2) mg/dL Conjugated Bilirubin 1.17 H (0.20-0.40) mg/dL Unconjugated Bilirubin 1.13 H (0.20-1.00) mg/dL Total Protein 5.9 L (6.2-8.2) g/dL Albumin 3.0 L (3.8-4.9) g/dL Albumin/Globulin Ratio 1.03 L (1.60-3.17) Ratio Procalcitonin 0.11 H (0.02-0.09) ng/mL 08/18/23 Range/Units 13:15 RBC (4.40-5.60) X 10*6/uL Hct (39.6-50.0) % MCH (27.0-32.0) pg RDW (11.5-14.5) % Plt Count (140-440) X 10*3/uL Lymphocytes # (0.90-5.00) X 10*3/uL Sodium 122 L (135-145) mmol/L Chloride 96 L (96-109) mmol/L Carbon Dioxide 15 L (21.6-31.8) mmol/L Anion Gap (4.00-12.00) mmol/L BUN/Creatinine Ratio (12.00-20.00) Ratio Glucose 106 H (74-99) mg/dL Calcium 7.9 L (8.7-10.3) mg/dL Total Bilirubin (0.3-1.2) mg/dL Conjugated Bilirubin (0.20-0.40) mg/dL Unconjugated Bilirubin (0.20-1.00) mg/dL Total Protein (6.2-8.2) g/dL Albumin (3.8-4.9) g/dL Albumin/Globulin Ratio (1.60-3.17) Ratio Procalcitonin (0.02-0.09) ng/mL Microbiology - Last 24 Hours (Table) 08/16/23 19:35 Blood Culture - Preliminary Blood 08/16/23 19:20 Blood Culture - Preliminary Blood
[2023-08-19 04:22] LABS: Appearance,BF Clear (Clear)
[2023-08-19 07:07] LABS: ALT 21 U/L (4-49); AST 31 U/L (17-59); African American GFR (CKD) >90 (>60 ml/min/1.73 sqM); Albumin 2.8 g/dL (3.5-5.0); Albumin/Globulin Ratio 0.7; Alkaline Phosphatase 70 U/L (38-126); Anion Gap 9 mmol/L; Blood Urea Nitrogen 20 mg/dL (9-20); Calcium 8.1 mg/dL (8.4-10.2); Carbon Dioxide 16 mmol/L (22-30); Chloride 98 mmol/L (98-107); Globulin 3.8 g/dL; Glucose 77 mg/dL (74-99); Non-African American GFR(CKD) >90 (>60 ml/min/1.73 sqM); Potassium 4.7 mmol/L (3.5-5.1); Sodium 123 mmol/L (137-145); Total Bilirubin 2.1 mg/dL (0.2-1.3); Total Protein 6.6 g/dL (6.3-8.2)
[2023-08-19] MEDS: ENOXAPARIN 40 MG/0.4 ML SYRINGE SQ SCH (07:58)
--- NOTE | 2023-08-19 11:27 | P.NPCON ---
History of Present Illness - Reason for Consult hyponatremia - History of Present Illness patient is a 63-year-old male with history of hypertension, liver cirrhosis who presented to the hospital with complaints of increased weakness and abdominal pain. Patient also had a fever of 10 2F. Sodium was 120 on initial admission. Repeat sodium was 120 to yesterday. Patient was maintained on oral Lasix and was also getting IV fluids. status post paracentesis on 08/18/2023 with 4.8 L of fluid removed. blood pressure is not low. Patient denies any history of nausea vomiting abdominal pain or diarrhea. urine osmolality was 522 and random urine sodium was 61. IV Lasix as well as normal saline was discontinued yesterday. Serum sodium increased to 123 today. Review of Systems as per HPI Past Medical History Past Medical History: Hypertension, Liver Disease, Pneumonia Additional Past Medical History / Comment(s): Liver cirrhosis, splenomegaly, pancreatitis-pt states pancreatitis was side effect from Lisinopril, pt denies hx of alcoholism/drinking heavily, cellulitis with sepsis, ASCITES History of Any Multi-Drug Resistant Organisms: None Reported Past Surgical History: No Surgical Hx Reported Additional Past Surgical History / Comment(s): dental extraction, cataract bilateral - Pt states he was awake for both procedure and has never had general anesthesia Past Anesthesia/Blood Transfusion Reactions: No Reported Reaction, Unable to Obtain Additional Past Anesthesia/Blood Transfusion Reaction / Comment(s): Pt has never had anesthesia Past Psychological History: No Psychological Hx Reported Additional Psychological History / Comment(s): He uses a cane to ambulate. He can drive and states he is indpendent. Smoking Status: Never smoker Past Alcohol Use History: None Reported Additional Past Alcohol Use History / Comment(s): had not drank alcohol since 2017 Past Drug Use History: None Reported - Past Family History Mother Family Medical History: Hypertension Additional Family Medical History / Comment(s): Mother lived to be 91 yrs old. Father Family Medical History: CVA/TIA Additional Family Medical History / Comment(s): Father of a CVA at the age of 65yrs. Son(s) Family Medical History: No Reported History Daughter(s) Family Medical History: No Reported History Medications and Allergies Home Medications Medication Instructions Recorded Confirmed Type traZODone HCL [Desyrel] 100 mg PO HS 06/18/21 08/16/23 History Pantoprazole [Protonix] 40 mg PO AC-BRKFST tab 06/22/21 08/16/23 Rx Midodrine [ProAmatine] 5 mg PO Q8H 07/13/21 08/16/23 History Folic Acid 1 mg PO DAILY tab 07/18/21 08/16/23 Rx Furosemide [Lasix] 40 mg PO BID@0900,1600 tab 07/18/21 08/16/23 Rx Potassium Chloride ER [K-Dur 20] 20 meq PO DAILY tablet 07/18/21 08/16/23 Rx Albuterol Inhaler [Ventolin Hfa 2 puff INHALATION RT-TID PRN 08/06/23 08/16/23 History Inhaler] Spironolactone [Aldactone] 100 mg PO DAILY 08/16/23 08/16/23 History Allergies Allergy/AdvReac Type Severity Reaction Status Date / Time lisinopril AdvReac causes Verified 08/16/23 19:37 pancreatitis Physical Exam Vitals: Vital Signs Temp Pulse Resp BP Pulse Ox 08/19/23 08:43 97 08/19/23 07:34 98.3 F 90 17 136/73 97 08/19/23 01:51 98.5 F 90 16 127/72 91 L 08/18/23 23:45 124/72 08/18/23 20:00 16 08/18/23 19:24 98.0 F 87 15 144/79 98 08/18/23 15:00 97.5 F L 83 16 126/79 100 08/18/23 13:58 97.7 F 87 17 122/68 100 Intake and Output 08/18/23 08/19/23 08/19/23 22:59 06:59 14:59 Output Total 200 Balance -200 Output: Urine 200 Other: Voiding Method External Catheter External Catheter patient is awake, comfortable, no acute distress. answers questions appropriately. Examination of the heart S1 and S2 Examination of the lungs bilateral breath sounds are heard Abdomen is soft nontender Examination of lower extremities shows trace edema with wrinkling of the skin noted. POULTRY BARN MANAGER exam grossly intact Results - Lab Results Most recent lab results Calcium 8.1 mg/dL (8.4-10.2) L 08/19/23 04:51 Magnesium 2.3 mg/dL (1.6-2.3) 08/16/23 19:35 08/18/23 05:12 08/19/23 04:51 Assessment and Plan Assessment: 1. Hyponatremia, possibly hypovolemic with recent diuresis. Lasix and normal saline were discontinued yesterday. Sodium is 123 today. Urine osmolality at 522 and random urine sodium was 61. I we will rechallenge with normal saline today. 2. Liver cirrhosis with ascites status post paracentesis and removal of 4.8 L on 08/18/2023. 3. Umbilical hernia 4. Right renal cyst, benign appearing Plan: rechallenge with IV fluids. Repeat sodium in 4 hours. Continue to hold Lasix for now. If serum sodium worsens after saline administration patient will be treated for SIADH. Thank you for the consultation. We will continue to follow the patient with you during his hospitalization.
[2023-08-19] MEDS: SODIUM CHLORIDE 0.9% 1,000 ML IV SCH (12:19)
[2023-08-19 14:09] LABS: Basophils % (A) 0 %; Eosinophils # (A) 0.1 k/uL (0-0.7); Eosinophils % (A) 1 %; HCT 43.3 % (39.0-53.0); Lymphocytes # (A) 0.2 k/uL (1.0-4.8); Lymphocytes % (A) 3 %; MCH 31.7 pg (25.0-35.0); MCHC 32.3 g/dL (31.0-37.0); MCV 98.3 fL (80.0-100.0); Macrocytosis Slight; Monocytes # (A) 0.6 k/uL (0-1.0); Monocytes % (A) 10 %; Neutrophils # (A) 4.9 k/uL (1.3-7.7); Neutrophils % (A) 81 %; RBC 4.41 m/uL (4.30-5.90); RDW 15.8 % (11.5-15.5)
[2023-08-19 14:24] LABS: Platelet Count 82 k/uL (150-450)
--- NOTE | 2023-08-19 16:18 | P.PN ---
Subjective Progress Note Date: 08/19/23 HISTORY OF PRESENT ILLNESS: This is a 63 year old male with a previous medical history significant for hypertension and hypertensive cardiovascular disease, hyperlipidemia, history of pancreatitis in the past along with prior history of sepsis due to cellulitis about 4 year ago, history of chronic alcoholic hepatitis with alcoholic liver cirrhosis with elevated coags liver function test. Patient presented to the emergency department 2 days ago for fatigue, weakness, abdominal pain, and fever of 102 degrees at home. Chest XR negative for acute cardiopulmonary process. CT of the abdomen/pelvis reveals cirrhosis with port venous hypterention, moderate ascites and distal esophageal varices with splenomegaly at 14 cm, a 2 cm lession anterior right hepatic dome. Patient was placed on IV Rocephin. IR was consulted for therapeutic paracentesis. MRI of the abdomen has been ordered. The brain CT showed age-related atrophic changes plus chronic small vessel ischemia without acute intracranial process. Blood work completed in ED reveals a WBC of 10.7, hemoglobin of 13.2 and platelet count of 108, PT 15 with INR of 1.5, sodium 120, potassium 5.1, BUNs/creatinine of 25/0.74, CRP of 2.30; UA is completed and is unremarkable. 08/17: Patient is lying in bed and is very lethargic at this time. Awaiting MRI of the abdomen. Patient did have ultrasound-guided paracentesis today with approximately 4800 cc of clear straw-colored fluid. Pathology pending. Continue 2 g of Rocephin IV once daily. Will start Lovenox 40 mg subcu daily for DVT prophylaxis. Continue current medications and pain management. Continue 1500 cc fluid restriction as well as oral nutrition supplementation. Sodium is up from 120 to 122 today. Patient remains a full code. 08/18: MRI of the abdomen complete, pending result. Urine osmolality 522, random urine sodium 61, serum sodium 123. Nephrology has seen the patient. Continue 0.9 at 75 cc an hour. Continue Rocephin 2 g daily. And we will repeat the sodium level this afternoon. Continue 1500 cc fluid restriction as well as oral nutrition supplementation. REVIEW OF SYSTEMS: Constitutional: Positive fever, no chills, no night sweats. No weight change. Positive for weakness, positive for fatigue or lethargy. No daytime sleepiness. HEENT: No headache. No blurred vision or double vision, no loss of vision. No loss of Hearing, no ringing in the ears, no dizziness. No nasal drainage or congestion. No epistaxis. No sore throat. Lungs: No shortness of breath, no cough, no sputum production. No wheezing. Reports dyspnea with activity. Cardiovascular: No chest pain, positive for lower extremity edema. No palpitations. No paroxysmal nocturnal dyspnea. No orthopnea. No lightheadedness or dizziness. No syncopal episodes. Abdominal: Reports abdominal pain and distention. No nausea, vomiting, diarrhea. No constipation. No bloody or tarry stools reports loss of appetite. Genitourinary: No dysuria, increased frequency, urgency. No urinary retention. Musculoskeletal: No myalgias. positive for muscle weakness, no gait dysfunct ion, no frequent falls. No back pain. No neck pain. Integumentary: No wounds, no lesions. No rash or pruritus. No unusual bruising. No change in hair or nails. Neurologic: No aphasia. No facial droop. No change in mentation. No head injury. No headache. No paralysis. No paresthesia. Psychiatric: No depression. No anxiety. No mood swings. Endocrine: No abnormal blood sugars. No weight change. PHYSICAL EXAMINATION: General: 63-year-old male laying down and lethargic. HEENT: Head is atraumatic, normocephalic, pupils were equal round reactive to light and recommendation, extraocular muscle movement were intact, sclera are deeply icteric, conjunctivae were pale, mucous membranes of the mouth are somewhat dry. Neck: Supple, no JVP, normal carotid upstroke bilaterally, no lymphadenopathy. Chest: Decreased breath sounds at the bases, no expiratory wheezes, no chest wall tenderness, no intercostal retractions. Heart: First heart sound is normal, second heart sounds normal there is BLANCA 2/6 located at the left sternal border Abdomen: Soft, distended, moderate ascites, generalized tenderness, positive bowel sounds. Extremities: No edema, no calf tenderness DP +2 bilaterally. Neurologic examination: Patient is awake and oriented X 2, cranial nerves II-12 appear grossly intact, muscle power were 4 out of 5 in upper extremities and 4 out of 5 in bilateral lower extremities, deep tendon reflexes normal bilaterally. ASSESSMENT AND PLAN: 1. Acute on chronic alcohol hepatitis with alcoholic liver cirrhosis and ascites. Monitor patient's input and output and daily weight. 4200 cc removed via paracentesis. Serum sodium up to 123. MRI of the abdomen pending. Serum sodium 123. Repeat sodium level this afternoon. Repeat CBC and CMP tomorrow. We will order an ammonia level. Continue 0.9 normal saline at 75 cc an hour per nephrology recommendation. 2. Moderate amount of ascites. Paracentesis completed yesterday with 4.2 L of fluid removed. 3. Hypertension and hypertensive cardiovascular disease. Currently normotensive patient has been off his antihypertensive medications. 4. GERD. Continue patient on Protonix 40 mg orally once every day. 5. DVT prophylaxis. Bilateral knee-high TAMI hose. Lovenox 40 mg subcutaneous daily. 6. Hyponatremia. Continue 0.9 normal saline at 75 cc an hour. 8. Patient is a full code. Impression and plan of care have been directed as dictated by the signing physician. Deanna Lopez, nurse practitioner acting as scribe for signing physician. Objective - Vital Signs Vital signs: Vital Signs Temp 98.3 F 08/19/23 07:34 Pulse 90 08/19/23 07:34 Resp 17 08/19/23 07:34 BP 136/73 08/19/23 07:34 Pulse Ox 97 08/19/23 08:43 FiO2 Intake & Output 08/18/23 08/19/23 08/19/23 18:59 06:59 18:59 Output Total 250 200 Balance -250 -200 Weight 81.193 kg Output: Urine 250 200 Other: Voiding Method External Catheter External Catheter - Labs CBC & Chem 7: 08/24/23 04:33 08/24/23 04:33 Labs: Abnormal Lab Results - Last 24 Hours (Table) 08/18/23 08/18/23 08/19/23 Range/Units 05:12 13:15 04:51 Sodium 122 L 123 L (137-145) mmol/L Chloride 96 L (98-107) mmol/L Carbon Dioxide 15 L 16 L (22-30) mmol/L Glucose 106 H (74-99) mg/dL Osmolality 260 L (275-295) mOsm/kg Calcium 7.9 L 8.1 L (8.4-10.2) mg/dL Total Bilirubin 2.1 H (0.2-1.3) mg/dL Albumin 2.8 L (3.5-5.0) g/dL Microbiology - Last 24 Hours (Table) 08/18/23 10:12 Gram Stain - Preliminary Ascites Fluid 08/16/23 19:35 Blood Culture - Preliminary Blood 08/16/23 19:20 Blood Culture - Preliminary Blood
--- NOTE | 2023-08-19 18:10 | MR ---
EXAMINATION TYPE: MR abdomen wo/w con DATE OF EXAM: 08/19/2023 1:21 PM CLINICAL INDICATION:Male, 63 years old with history of Hepatic lesion, Hepatic lesion. COMPARISON: CT scan abdomen from 08/17/2023. TECHNIQUE: Multiplanar multi-sequence imaging was performed without contrast. Post contrast imaging was performed. Post IV contrast subtraction images were also submitted for review. IV Contrast: 8 cc Gadavist FINDINGS: LOWER CHEST: No gross irregularity. Breast tissue posterior to the nipples bilaterally. ABDOMEN Liver: Cirrhotic morphology to liver. Respiratory motion limits evaluation. Area of concern prior's C T age is not definitively have an enhancement with washout. The lesions are not excluded. Gallbladder and Bile ducts: No evidence for ductal dilation, or biliary stricture or evidence of chol edocholithiasis. The gallbladder demonstrates layering gallstone. Pancreas: No ductal dilation. No evidence for solid mass. Spleen: Enlarged measuring up to 13.3 cm. Adrenal glands: Unremarkable. Kidneys: No evidence for obstructive uropathy. No suspicious renal masses. Simple appearing high T2 s imple renal cyst. Stomach and Bowel: There is diffuse circumferential wall thickening of the small bowel. No evidence f or bowel wall thickening or evidence for obstruction. Retroperitoneum/Peritoneum: No evidence of pneumoperitoneum or free fluid. Vasculature: No aortic aneurysm. Musculoskeletal: The osseous structures appear intact. Lymph Nodes: No gross evidence for lymphadenopathy. Abdominal wall: Unremarkable. IMPRESSION: 1. Extensive motion artifact limits evaluation. No definitive lesions identified in the area of conc sal on prior CT. Small lesions are not excluded at this time. Consider CT liver mass protocol. 2. Hepatic cirrhosis with evidence of portal hypertension with splenomegaly and ascites as well as e vidence for intra hepatic enteropathy. 3. Cholelithiasis. 4. Simple appearing right renal cyst.
[2023-08-19] MEDS: TOLVAPTAN 15 MG TABLET PO ONE (21:17)
[2023-08-20 10:05] LABS: Basophils % (A) 1 %; Eosinophils # (A) 0.1 k/uL (0-0.7); Eosinophils % (A) 2 %; HCT 45.1 % (39.0-53.0); HGB 14.6 gm/dL (13.0-17.5); Lymphocytes # (A) 0.4 k/uL (1.0-4.8); Lymphocytes % (A) 6 %; MCH 31.5 pg (25.0-35.0); MCHC 32.4 g/dL (31.0-37.0); MCV 97.2 fL (80.0-100.0); Macrocytosis Slight; Mean Platelet Volume 8.8; Monocytes # (A) 0.8 k/uL (0-1.0); Monocytes % (A) 14 %; Neutrophils # (A) 4.3 k/uL (1.3-7.7); Neutrophils % (A) 74 %; RBC 4.64 m/uL (4.30-5.90); RDW 15.8 % (11.5-15.5); WBC 5.8 k/uL (3.8-10.6)
[2023-08-20 10:07] LABS: Platelet Count 81 k/uL (150-450)
[2023-08-20 14:46] LABS: ALT 21 U/L (4-49); AST 27 U/L (17-59); African American GFR (CKD) >90 (>60 ml/min/1.73 sqM); Albumin 2.7 g/dL (3.5-5.0); Albumin/Globulin Ratio 0.8; Alkaline Phosphatase 77 U/L (38-126); Anion Gap 9 mmol/L; Blood Urea Nitrogen 16 mg/dL (9-20); Carbon Dioxide 18 mmol/L (22-30); Chloride 95 mmol/L (98-107); Globulin 3.6 g/dL; Glucose 154 mg/dL (74-99); Non-African American GFR(CKD) >90 (>60 ml/min/1.73 sqM); Potassium 4.2 mmol/L (3.5-5.1); Sodium 122 mmol/L (137-145); Total Bilirubin 1.3 mg/dL (0.2-1.3); Total Protein 6.3 g/dL (6.3-8.2)
[2023-08-20] MEDS: TOLVAPTAN 15 MG TABLET PO ONE (16:15)
--- NOTE | 2023-08-20 19:07 | P.PN ---
Subjective Patient is seen for follow-up for hyponatremia. Serum sodium dropped with normal saline challenge. Therefore patient received Samsca yesterday. Repeat sodium is pending from this morning. Patient denies any significant complaints today. Objective - Vital Signs Vital signs: Vital Signs Temp 97.8 F 08/20/23 14:00 Pulse 86 08/20/23 14:00 Resp 17 08/20/23 14:00 BP 115/72 08/20/23 14:00 Pulse Ox 95 08/20/23 15:30 FiO2 Intake & Output 08/20/23 08/20/23 08/21/23 06:59 18:59 06:59 Intake Total 1400 Output Total 300 900 Balance -300 500 Intake: Oral 1400 Output: Urine 300 900 Other: Voiding Method External Catheter Diaper - Exam patient is awake, comfortable, no acute distress. answers questions appropriately. Examination of the heart S1 and S2 Examination of the lungs bilateral breath sounds are heard Abdomen is soft nontender Examination of lower extremities shows trace edema with wrinkling of the skin noted. DUTY OFFICER exam grossly intact - Labs CBC & Chem 7: 08/20/23 08:57 08/20/23 13:59 Labs: Abnormal Lab Results - Last 24 Hours (Table) 08/20/23 08/20/23 Range/Units 08:57 13:59 RDW 15.8 H (11.5-15.5) % Plt Count 81 L (150-450) k/uL Lymphocytes # 0.4 L (1.0-4.8) k/uL Sodium 122 L (137-145) mmol/L Chloride 95 L (98-107) mmol/L Carbon Dioxide 18 L (22-30) mmol/L Glucose 154 H (74-99) mg/dL Calcium 8.0 L (8.4-10.2) mg/dL Albumin 2.7 L (3.5-5.0) g/dL Microbiology - Last 24 Hours (Table) 08/16/23 19:35 Blood Culture - Preliminary Blood 08/16/23 19:20 Blood Culture - Preliminary Blood 08/18/23 10:12 Gram Stain - Preliminary Ascites Fluid Body Fluid Culture - Preliminary Assessment and Plan Assessment: 1. Hyponatremia, secondary to SIADH with worsening of serum sodium with normal saline challenge. Urine osmolality at 522 and random urine sodium was 61. Status post Samsca. 2. Liver cirrhosis with ascites status post paracentesis and removal of 4.8 L on 08/18/2023. 3. Umbilical hernia 4. Right renal cyst, benign appearing Plan: Follow-up on sodium from today and repeat Samsca. Repeat sodium in a.m. Continue with fluid restriction.
--- NOTE | 2023-08-20 19:22 | P.PN ---
Subjective Progress Note Date: 08/20/23 HISTORY OF PRESENT ILLNESS: This is a 63 year old male with a previous medical history significant for hypertension and hypertensive cardiovascular disease, hyperlipidemia, history of pancreatitis in the past along with prior history of sepsis due to cellulitis about 4 year ago, history of chronic alcoholic hepatitis with alcoholic liver cirrhosis with elevated coags liver function test. Patient presented to the emergency department 2 days ago for fatigue, weakness, abdominal pain, and fever of 102 degrees at home. Chest XR negative for acute cardiopulmonary process. CT of the abdomen/pelvis reveals cirrhosis with port venous hypterention, moderate ascites and distal esophageal varices with splenomegaly at 14 cm, a 2 cm lession anterior right hepatic dome. Patient was placed on IV Rocephin. IR was consulted for therapeutic paracentesis. MRI of the abdomen has been ordered. The brain CT showed age-related atrophic changes plus chronic small vessel ischemia without acute intracranial process. Blood work completed in ED reveals a WBC of 10.7, hemoglobin of 13.2 and platelet count of 108, PT 15 with INR of 1.5, sodium 120, potassium 5.1, BUNs/creatinine of 25/0.74, CRP of 2.30; UA is completed and is unremarkable. 08/17: Patient is lying in bed and is very lethargic at this time. Awaiting MRI of the abdomen. Patient did have ultrasound-guided paracentesis today with approximately 4800 cc of clear straw-colored fluid. Pathology pending. Continue 2 g of Rocephin IV once daily. Will start Lovenox 40 mg subcu daily for DVT prophylaxis. Continue current medications and pain management. Continue 1500 cc fluid restriction as well as oral nutrition supplementation. Sodium is up from 1 20- 22 today. Patient remains a full code. 08/18: MRI of the abdomen complete, pending result. Urine osmolality 522, random urine sodium 61, serum sodium 123. Nephrology has seen the patient. Continue 0.9 at 75 cc an hour. Continue Rocephin 2 g daily. And we will repeat the s odium level this afternoon. Continue 1500 cc fluid restriction as well as oral nutrition supplementation. 08/19: Patient is sitting up in a chair at this time, alert, oriented, and making conversation. MRI of the abdomen showed no definitive lesions identified in the area of concern; however, small lesions are not excluded. The MRI also showed hepatic cirrhosis with evidence of portal hypertension with splenomegaly and ascites. Sodium today is 122, fluids have been discontinued. Tolvaptan 15 mg p.o. has been administered. Patient remains on a 1500 cc fluid restriction. We will repeat CMP tomorrow. Continue PT and OT. [facility] when patient is discharged. REVIEW OF SYSTEMS: Constitutional: Positive fever, no chills, no night sweats. No weight change. Positive for weakness, positive for fatigue. No daytime sleepiness. HEENT: No headache. No blurred vision or double vision, no loss of vision. No loss of Hearing, no ringing in the ears, no dizziness. No nasal drainage or congestion. No epistaxis. No sore throat. Lungs: No shortness of breath, no cough, no sputum production. No wheezing. Reports dyspnea with activity. Cardiovascular: No chest pain, positive for lower extremity edema. No palpitations. No paroxysmal nocturnal dyspnea. No orthopnea. No lightheadedness or dizziness. No syncopal episodes. Abdominal: Reports abdominal pain and distention. No nausea, vomiting, diarrhea. No constipation. No bloody or tarry stools reports loss of appetite. Genitourinary: No dysuria, increased frequency, urgency. No urinary retention. Musculoskeletal: No myalgias. positive for muscle weakness, no gait dysfunction, no frequent falls. No back pain. No neck pain. Integumentary: No wounds, no lesions. No rash or pruritus. No unusual bruising. No change in hair or nails. Neurologic: No aphasia. No facial droop. No change in mentation. No head injury. No headache. No paralysis. No paresthesia. Psychiatric: No depression. No anxiety. No mood swings. Endocrine: No abnormal blood sugars. No weight change. PHYSICAL EXAMINATION: General: 63-year-old male laying down and lethargic. HEENT: Head is atraumatic, normocephalic, pupils were equal round reactive to light and recommendation, extraocular muscle movement were intact, sclera are deeply icteric, conjunctivae were pale, mucous membranes of the mouth are somewhat dry. Neck: Supple, no JVP, normal carotid upstroke bilaterally, no lymphadenopathy. Chest: Decreased breath sounds at the bases, no expiratory wheezes, no chest wall tenderness, no intercostal retractions. Heart: First heart sound is normal, second heart sounds normal there is BLANCA 2/6 located at the left sternal border Abdomen: Soft, distended, moderate ascites, generalized tenderness, positive bowel sounds. Extremities: No edema, no calf tenderness DP +2 bilaterally. Neurologic examination: Patient is awake and oriented X 2, cranial nerves II-12 appear grossly intact, muscle power were 4 out of 5 in upper extremities and 4 out of 5 in bilateral lower extremities, deep tendon reflexes normal bilaterally. ASSESSMENT AND PLAN: 1. Acute on chronic alcohol hepatitis with alcoholic liver cirrhosis and ascites. Monitor patient's input and output and daily weight. MRI of the ab domen shows no definitive lesions. Serum sodium 122. IV fluids discontinued. Repeat CMP tomorrow. 2. Hypertension and hypertensive cardiovascular disease. Currently normotensive patient has been off his antihypertensive medications. 3. GERD. Continue patient on Protonix 40 mg orally once every day. 4. DVT prophylaxis. Bilateral knee-high TAMI hose. Lovenox 40 mg subcutaneous daily. 5. Hyponatremia. Tolvaptan 15 mg given. 6. Patient is a full code. 7. Discharge plan is rehab at [facility] once medically stable. Impression and plan of care have been directed as dictated by the signing physician. Deanna Lopez, nurse practitioner acting as scribe for signing physician. Objective - Vital Signs Vital signs: Vital Signs Temp 97.8 F 08/20/23 14:00 Pulse 86 08/20/23 14:00 Resp 17 08/20/23 14:00 BP 115/72 08/20/23 14:00 Pulse Ox 95 08/20/23 15:30 FiO2 Intake & Output 08/20/23 08/20/23 08/21/23 06:59 18:59 06:59 Intake Total 1400 Output Total 300 900 Balance -300 500 Intake: Oral 1400 Output: Urine 300 900 Other: Voiding Method External Catheter Diaper - Labs CBC & Chem 7: 08/24/23 04:33 08/24/23 04:33 Labs: Abnormal Lab Results - Last 24 Hours (Table) 08/20/23 08/20/23 Range/Units 08:57 13:59 RDW 15.8 H (11.5-15.5) % Plt Count 81 L (150-450) k/uL Lymphocytes # 0.4 L (1.0-4.8) k/uL Sodium 122 L (137-145) mmol/L Chloride 95 L (98-107) mmol/L Carbon Dioxide 18 L (22-30) mmol/L Glucose 154 H (74-99) mg/dL Calcium 8.0 L (8.4-10.2) mg/dL Albumin 2.7 L (3.5-5.0) g/dL Microbiology - Last 24 Hours (Table) 08/16/23 19:35 Blood Culture - Preliminary Blood 08/16/23 19:20 Blood Culture - Preliminary Blood 08/18/23 10:12 Gram Stain - Preliminary Ascites Fluid Body Fluid Culture - Preliminary
[2023-08-21] MEDS: MIDODRINE 5 MG TAB PO SCH (06:52)
[2023-08-21 07:32] LABS: ALT 21 U/L (4-49); AST 29 U/L (17-59); African American GFR (CKD) >90 (>60 ml/min/1.73 sqM); Albumin 2.6 g/dL (3.5-5.0); Albumin/Globulin Ratio 0.7; Alkaline Phosphatase 71 U/L (38-126); Anion Gap 2 mmol/L; Blood Urea Nitrogen 13 mg/dL (9-20); Calcium 8.2 mg/dL (8.4-10.2); Carbon Dioxide 23 mmol/L (22-30); Chloride 97 mmol/L (98-107); Globulin 3.5 g/dL; Glucose 101 mg/dL (74-99); Non-African American GFR(CKD) >90 (>60 ml/min/1.73 sqM); Potassium 4.7 mmol/L (3.5-5.1); Sodium 122 mmol/L (137-145); Total Protein 6.1 g/dL (6.3-8.2)
--- NOTE | 2023-08-21 10:57 | P.PN ---
Subjective Patient is seen for follow-up for hyponatremia. Serum sodium dropped with normal saline challenge. Therefore patient received Samsca. sodium improved to 122 and has not increased further today. Patient denies any significant complaints today. Asking to liberalize fluid intake. Objective - Vital Signs Vital signs: Vital Signs Temp 97.7 F 08/21/23 07:20 Pulse 82 08/21/23 07:20 Resp 17 08/21/23 07:20 BP 115/67 08/21/23 07:20 Pulse Ox 98 08/21/23 07:20 FiO2 Intake & Output 08/20/23 08/21/23 08/21/23 18:59 06:59 18:59 Intake Total 1400 700 386 Output Total 900 700 Balance 500 0 386 Intake: Oral 1400 700 386 Output: Urine 900 700 Other: Voiding Method Diaper Urinal - Exam patient is awake, comfortable, no acute distress. answers questions appropriately. Examination of the heart S1 and S2 Examination of the lungs bilateral breath sounds are heard Abdomen is soft nontender Examination of lower extremities shows no edema [employer] exam grossly intact - Labs CBC & Chem 7: 08/20/23 08:57 08/21/23 06:43 Labs: Abnormal Lab Results - Last 24 Hours (Table) 08/20/23 08/21/23 Range/Units 13:59 06:43 Sodium 122 L 122 L (137-145) mmol/L Chloride 95 L 97 L (98-107) mmol/L Carbon Dioxide 18 L (22-30) mmol/L Creatinine 0.65 L (0.66-1.25) mg/dL Glucose 154 H 101 H (74-99) mg/dL Calcium 8.0 L 8.2 L (8.4-10.2) mg/dL Total Bilirubin 2.0 H (0.2-1.3) mg/dL Total Protein 6.1 L (6.3-8.2) g/dL Albumin 2.7 L 2.6 L (3.5-5.0) g/dL Microbiology - Last 24 Hours (Table) 08/18/23 10:12 Gram Stain - Preliminary Ascites Fluid Body Fluid Culture - Preliminary 08/16/23 19:35 Blood Culture - Preliminary Blood 08/16/23 19:20 Blood Culture - Preliminary Blood Assessment and Plan Assessment: 1. Hyponatremia, secondary to SIADH with worsening of serum sodium with normal saline challenge. Urine osmolality at 522 and random urine sodium was 61. Status post Samsca. 2. Liver cirrhosis with ascites status post paracentesis and removal of 4.8 L on 08/18/2023. 3. Umbilical hernia 4. Right renal cyst, benign appearing Plan: Repeat Samsca. sodium chloride 1 g 1 Repeat sodium in a.m. Continue with fluid restriction.
[2023-08-21] MEDS: SODIUM CHLORIDE TAB 1 GM TAB PO STA (11:31)
[2023-08-21] MEDS: TOLVAPTAN 15 MG TABLET PO ONE (11:31)
--- NOTE | 2023-08-21 18:35 | P.PN ---
Subjective Progress Note Date: 08/21/23 HISTORY OF PRESENT ILLNESS: This is a 63 year old male with a previous medical history significant for hypertension and hypertensive cardiovascular disease, hyperlipidemia, history of pancreatitis in the past along with prior history of sepsis due to cellulitis about 4 year ago, history of chronic alcoholic hepatitis with alcoholic liver cirrhosis with elevated coags liver function test. Patient presented to the emergency department 2 days ago for fatigue, weakness, abdominal pain, and fever of 102 degrees at home. Chest XR negative for acute cardiopulmonary process. CT of the abdomen/pelvis reveals cirrhosis with port venous hypterention, moderate ascites and distal esophageal varices with splenomegaly at 14 cm, a 2 cm lession anterior right hepatic dome. Patient was placed on IV Rocephin. IR was consulted for therapeutic paracentesis. MRI of the abdomen has been ordered. The brain CT showed age-related atrophic changes plus chronic small vessel ischemia without acute intracranial process. Blood work completed in ED reveals a WBC of 10.7, hemoglobin of 13.2 and platelet count of 108, PT 15 with INR of 1.5, sodium 120, potassium 5.1, BUNs/creatinine of 25/0.74, CRP of 2.30; UA is completed and is unremarkable. 08/17: Patient is lying in bed and is very lethargic at this time. Awaiting MRI of the abdomen. Patient did have ultrasound-guided paracentesis today with approximately 4800 cc of clear straw-colored fluid. Pathology pending. Continue 2 g of Rocephin IV once daily. Will start Lovenox 40 mg subcu daily for DVT prophylaxis. Continue current medications and pain management. Continue 1500 cc fluid restriction as well as oral nutrition supplementation. Sodium is up from 120 to 122 today. Patient remains a full code. 08/18: MRI of the abdomen complete, pending result. Urine osmolality 522, random urine sodium 61, serum sodium 123. Nephrology has seen the patient. Continue 0.9 at 75 cc an hour. Continue Rocephin 2 g daily. And we will repeat the sodium level this afternoon. Continue 1500 cc fluid restriction as well as oral nutrition supplementation. 08/19: Patient is sitting up in a chair at this time, alert, oriented, and making conversation. MRI of the abdomen showed no definitive lesions identified in the area of concern; however, small lesions are not excluded. The MRI also showed hepatic cirrhosis with evidence of portal hypertension with splenomegaly and ascites. Sodium today is 122, fluids have been discontinued. Tolvaptan 15 mg p.o. has been administered. Patient remains on a 1500 cc fluid restriction. We will repeat CMP tomorrow. Continue PT and OT. Plan is for [facility] for rehabilitation when patient is discharged. 08/20: Patient is lying in bed with friend at bedside. He is alert and oriented. A second dose of tolvaptan 15 mg given today, as well as 1 g of sodium chloride. Patient remains on a 1500 cc fluid restriction. We will repeat CBC and CMP tomorrow. Continue PT and OT. REVIEW OF SYSTEMS: Constitutional: Positive fever, no chills, no night sweats. No weight change. Positive for weakness, positive for fatigue. No daytime sleepiness. HEENT: No headache. No blurred vision or double vision, no loss of vision. No loss of Hearing, no ringing in the ears, no dizziness. No nasal drainage or congestion. No epistaxis. No sore throat. Lungs: No shortness of breath, no cough, no sputum production. No wheezing. Reports dyspnea with activity. Cardiovascular: No chest pain, positive for lower extremity edema. No palpitations. No paroxysmal nocturnal dyspnea. No orthopnea. No lighthead edness or dizziness. No syncopal episodes. Abdominal: Reports abdominal pain and distention. No nausea, vomiting, diarrhea. No constipation. No bloody or tarry stools reports loss of appetite. Genitourinary: No dysuria, increased frequency, urgency. No urinary retention. Musculoskeletal: No myalgias. positive for muscle weakness, no gait dysfunction, no frequent falls. No back pain. No neck pain. Integumentary: No wounds, no lesions. No rash or pruritus. No unusual bruising. No change in hair or nails. Neurologic: No aphasia. No facial droop. No change in mentation. No head injury. No headache. No paralysis. No paresthesia. Psychiatric: No depression. No anxiety. No mood swings. Endocrine: No abnormal blood sugars. No weight change. PHYSICAL EXAMINATION: General: 63-year-old male laying down and lethargic. HEENT: Head is atraumatic, normocephalic, pupils were equal round reactive to light and recommendation, extraocular muscle movement were intact, sclera are deeply icteric, conjunctivae were pale, mucous membranes of the mouth are somewhat dry. Neck: Supple, no JVP, normal carotid upstroke bilaterally, no lymphadenopathy. Chest: Decreased breath sounds at the bases, no expiratory wheezes, no chest wall tenderness, no intercostal retractions. Heart: First heart sound is normal, second heart sounds normal there is BLANCA 2/6 located at the left sternal border Abdomen: Soft, distended, moderate ascites, generalized tenderness, positive bowel sounds. Extremities: No edema, no calf tenderness DP +2 bilaterally. Neurologic examination: Patient is awake and oriented X 2, cranial nerves II-12 appear grossly intact, muscle power were 4 out of 5 in upper extremities and 4 out of 5 in bilateral lower extremities, deep tendon reflexes normal bilaterally. ASSESSMENT AND PLAN: 1. Acute on chronic alcohol hepatitis with alcoholic liver cirrhosis and asci edson. Monitor patient's input and output and daily weight. MRI of the abdomen shows no definitive lesions. Serum sodium 122. IV fluids discontinued. Repeat CMP tomorrow. 2. Hypertension and hypertensive cardiovascular disease. Currently normotensive patient has been off his antihypertensive medications. 3. GERD. Continue patient on Protonix 40 mg orally once every day. 4. DVT prophylaxis. Bilateral knee-high TAMI hose. Lovenox 40 mg subcutaneous daily. 5. Hyponatremia. Tolvaptan 15 mg x 2 given. 6. Patient is a full code. 7. Discharge plan is rehab at [facility] once medically stable. Impression and plan of care have been directed as dictated by the signing physician. Deanna Lopez, nurse practitioner acting as scribe for signing physician. Objective - Vital Signs Vital signs: Vital Signs Temp 98.0 F 08/21/23 13:57 Pulse 91 08/21/23 13:57 Resp 16 08/21/23 13:57 BP 103/64 08/21/23 13:57 Pulse Ox 97 08/21/23 15:33 FiO2 Intake & Output 08/20/23 08/21/23 08/21/23 18:59 06:59 18:59 Intake Total 1400 700 704 Output Total 900 700 350 Balance 500 0 354 Weight 81.193 kg Intake: Oral 1400 700 704 Output: Urine 900 700 350 Other: Voiding Method Diaper Urinal # Voids 1 - Labs CBC & Chem 7: 08/24/23 04:33 08/24/23 04:33 Labs: Abnormal Lab Results - Last 24 Hours (Table) 08/21/23 08/21/23 Range/Units 06:43 14:50 Sodium 122 L 122 L (137-145) mmol/L Chloride 97 L (98-107) mmol/L Creatinine 0.65 L (0.66-1.25) mg/dL Glucose 101 H (74-99) mg/dL Calcium 8.2 L (8.4-10.2) mg/dL Total Bilirubin 2.0 H (0.2-1.3) mg/dL Total Protein 6.1 L (6.3-8.2) g/dL Albumin 2.6 L (3.5-5.0) g/dL Microbiology - Last 24 Hours (Table) 08/18/23 10:12 Anaerobic Culture - Preliminary Ascites Fluid 08/18/23 10:12 Gram Stain - Preliminary Ascites Fluid Body Fluid Culture - Preliminary
[2023-08-22] MEDS ORDERED: MD COMMUNICATION TO PHARMACY 1 EACH MISC PO PRN (09:25)
[2023-08-22 10:50] LABS: Basophils # (A) 0.03 X 10*3/uL (0.00-0.10); Basophils % (A) 0.7 %; Eosinophils # (A) 0.13 X 10*3/uL (0.04-0.35); Eosinophils % (A) 2.8 %; HCT 40.2 % (39.6-50.0); HGB 13.6 g/dL (13.0-17.0); Immature Platelet Fraction 2.4 % (1.1-6.1); Lymphocytes # (A) 0.39 X 10*3/uL (0.90-5.00); Lymphocytes % (A) 8.5 %; MCH 31.6 pg (27.0-32.0); MCHC 33.8 g/dL (32.0-37.0); MCV 93.5 FL (80.0-97.0); Mean Platelet Volume 9.4 FL (9.5-12.2); Monocytes # (A) 0.57 X 10*3/uL (0.20-1.00); Monocytes % (A) 12.5 %; NRBC Per 100 WBC 0 X 10*3/uL (0.00-0.01); Neutrophils # (A) 3.41 X 10*3/uL (1.80-7.70); Neutrophils % (A) 74.6 %; Platelet Count 66 X 10*3/uL (140-440); RDW 16.4 % (11.5-14.5); WBC 4.57 X 10*3/uL (4.50-10.00)
--- NOTE | 2023-08-22 11:14 | P.PN ---
Subjective Patient is seen for follow-up for hyponatremia. serum sodium has not improved further with Samsca. It is staying at 122. status post sodium chloride tab and Samsca yesterday. Patient denies any significant complaints today. Objective - Vital Signs Vital signs: Vital Signs Temp 97.9 F 08/22/23 07:53 Pulse 89 08/22/23 07:53 Resp 17 08/22/23 07:53 BP 136/78 08/22/23 07:53 Pulse Ox 96 08/22/23 07:53 FiO2 Intake & Output 08/21/23 08/22/23 08/22/23 18:59 06:59 18:59 Intake Total 704 Output Total 350 Balance 354 Weight 81.193 kg Intake: Oral 704 Output: Urine 350 Other: Voiding Method Urinal # Voids 1 2 - Exam patient is awake, comfortable, no acute distress. answers questions appropriately. Examination of the heart S1 and S2 Examination of the lungs bilateral breath sounds are heard Abdomen is soft nontender Examination of lower extremities shows no edema [employer] exam grossly intact - Labs CBC & Chem 7: 08/22/23 06:56 08/22/23 09:46 Labs: Abnormal Lab Results - Last 24 Hours (Table) 08/21/23 08/22/23 08/22/23 Range/Units 14:50 06:56 09:46 RBC 4.30 L (4.40-5.60) X 10*6/uL RDW 16.4 H (11.5-14.5) % Plt Count 66 L (140-440) X 10*3/uL MPV 9.4 L (9.5-12.2) FL Lymphocytes # 0.39 L (0.90-5.00) X 10*3/uL Sodium 122 L 120 L (137-145) mmol/L Microbiology - Last 24 Hours (Table) 08/18/23 10:12 Gram Stain - Preliminary Ascites Fluid Body Fluid Culture - Preliminary 08/18/23 10:12 Anaerobic Culture - Preliminary Ascites Fluid Assessment and Plan Assessment: 1. Hyponatremia, secondary to SIADH with worsening of serum sodium with normal saline challenge. Urine osmolality at 522 and random urine sodium was 61. Status post Samsca x3 with no significant improvement. I will add urea. Discussed with pharmacy and we should be able to obtain it today. I prefer to hold back on Samsca given the underlying liver cirrhosis. 2. Liver cirrhosis with ascites status post paracentesis and removal of 4.8 L on 08/18/2023. 3. Umbilical hernia 4. Right renal cyst, benign appearing Plan: Repeat Samsca. sodium chloride 2 g 1 Add urea for hyponatremia. Repeat sodium in a.m. Continue with fluid restriction.
[2023-08-22 11:53] LABS: ALT 22 U/L (10-49); AST 38 U/L (14-35); Alkaline Phosphatase 67 U/L (41-126); BUN/Creat Ratio 19.57 Ratio (12.00-20.00); Blood Urea Nitrogen 13.7 mg/dL (9.0-27.0); Calcium 8.3 mg/dL (8.7-10.3); Carbon Dioxide 15.1 mmol/L (21.6-31.8); Chloride 91 mmol/L (96-109); Glucose 88 mg/dL (70-110); Sodium 121 mmol/L (135-145); Total Bilirubin 1.8 mg/dL (0.3-1.2)
[2023-08-22] MEDS: TOLVAPTAN 15 MG TABLET PO ONE (12:37)
[2023-08-22] MEDS: SODIUM CHLORIDE TAB 1 GM TAB PO STA (12:37)
[2023-08-22] MEDS: UREA 15 GM PO SCH (17:01)
--- NOTE | 2023-08-22 19:25 | P.PN ---
Subjective Progress Note Date: 08/22/23 HISTORY OF PRESENT ILLNESS: This is a 63 year old male with a previous medical history significant for hypertension and hypertensive cardiovascular disease, hyperlipidemia, history of pancreatitis in the past along with prior history of sepsis due to cellulitis about 4 year ago, history of chronic alcoholic hepatitis with alcoholic liver cirrhosis with elevated coags liver function test. Patient presented to the emergency department 2 days ago for fatigue, weakness, abdominal pain, and fever of 102 degrees at home. Chest XR negative for acute cardiopulmonary process. CT of the abdomen/pelvis reveals cirrhosis with port venous hypterention, moderate ascites and distal esophageal varices with splenomegaly at 14 cm, a 2 cm lession anterior right hepatic dome. Patient was placed on IV Rocephin. IR was consulted for therapeutic paracentesis. MRI of the abdomen has been ordered. The brain CT showed age-related atrophic changes plus chronic small vessel ischemia without acute intracranial process. Blood work completed in ED reveals a WBC of 10.7, hemoglobin of 13.2 and platelet count of 108, PT 15 with INR of 1.5, sodium 120, potassium 5.1, BUNs/creatinine of 25/0.74, CRP of 2.30; UA is completed and is unremarkable. 08/17: Patient is lying in bed and is very lethargic at this time. Awaiting MRI of the abdomen. Patient did have ultrasound-guided paracentesis today with approximately 4800 cc of clear straw-colored fluid. Pathology pending. Continue 2 g of Rocephin IV once daily. Will start Lovenox 40 mg subcu daily for DVT prophylaxis. Continue current medications and pain management. Continue 1500 cc fluid restriction as well as oral nutrition supplementation. Sodium is up from 120 to 122 today. Patient remains a full code. 08/18: MRI of the abdomen complete, pending result. Urine osmolality 522, random urine sodium 61, serum sodium 123. Nephrology has seen the patient. Continue 0.9 at 75 cc an hour. Continue Rocephin 2 g daily. And we will repeat the sodium level this afternoon. Continue 1500 cc fluid restriction as well as oral nutrition supplementation. 08/19: Patient is sitting up in a chair at this time, alert, oriented, and making conversation. MRI of the abdomen showed no definitive lesions identified in the area of concern; however, small lesions are not excluded. The MRI also showed hepatic cirrhosis with evidence of portal hypertension with splenomegaly and ascites. Sodium today is 122, fluids have been discontinued. Tolvaptan 15 mg p.o. has been administered. Patient remains on a 1500 cc fluid restriction. We will repeat CMP tomorrow. Continue PT and OT. Plan is for [facility] for rehabilitation when patient is discharged. 08/20: Patient is lying in bed with friend at bedside. He is alert and oriented. A second dose of tolvaptan 15 mg given today, as well as 1 g of sodium chloride. Patient remains on a 1500 cc fluid restriction. We will repeat CBC and CMP tomorrow. Continue PT and OT. 08/21: Patient is lying in bed, states he feels good today. Denies chest pain or shortness of breath, denies pain. Last sodium level is 120. Patient has had 3 doses of tolvaptan 15 mg. He has also had 1 g of sodium chloride yesterday and 2 g of sodium chloride today. Maintain 1500 cc fluid restriction. We will repeat labs tomorrow. Once his sodium is stable, plan is for discharge to [facility]. REVIEW OF SYSTEMS: Constitutional: Positive fever, no chills, no night sweats. No weight change. Positive for weakness, positive for fatigue. No daytime sleepiness. HEENT: No headache. No blurred vision or double vision, no loss of vision. No loss of Hearing, no ringing in the ears, no dizziness. No nasal drainage or congestion. No epistaxis. No sore throat. Lungs: No shortness of breath, no cough, no sputum production. No wheezing. Reports dyspnea with activity. Cardiovascular: No chest pain, positive for lower extremity edema. No palpitations. No paroxysmal nocturnal dyspnea. No orthopnea. No lighthe adedness or dizziness. No syncopal episodes. Abdominal: Reports abdominal pain and distention. No nausea, vomiting, diarrhea. No constipation. No bloody or tarry stools reports loss of appetite. Genitourinary: No dysuria, increased frequency, urgency. No urinary retention. Musculoskeletal: No myalgias. positive for muscle weakness, no gait dysfunction, no frequent falls. No back pain. No neck pain. Integumentary: No wounds, no lesions. No rash or pruritus. No unusual bruising. No change in hair or nails. Neurologic: No aphasia. No facial droop. No change in mentation. No head injury. No headache. No paralysis. No paresthesia. Psychiatric: No depression. No anxiety. No mood swings. Endocrine: No abnormal blood sugars. No weight change. PHYSICAL EXAMINATION: General: 63-year-old male laying down and lethargic. HEENT: Head is atraumatic, normocephalic, pupils were equal round reactive to light and recommendation, extraocular muscle movement were intact, sclera are deeply icteric, conjunctivae were pale, mucous membranes of the mouth are somewhat dry. Neck: Supple, no JVP, normal carotid upstroke bilaterally, no lymphadenopathy. Chest: Decreased breath sounds at the bases, no expiratory wheezes, no chest wall tenderness, no intercostal retractions. Heart: First heart sound is normal, second heart sounds normal there is BLANCA 2/6 located at the left sternal border Abdomen: Soft, distended, moderate ascites, generalized tenderness, positive bowel sounds. Extremities: No edema, no calf tenderness DP +2 bilaterally. Neurologic examination: Patient is awake and oriented X 2, cranial nerves II-12 appear grossly intact, muscle power were 4 out of 5 in upper extremities and 4 out of 5 in bilateral lower extremities, deep tendon reflexes normal bilaterally. ASSESSMENT AND PLAN: 1. Acute on chronic alcohol hepatitis with alcoholic liver cirrhosis and as cites. Monitor patient's input and output and daily weight. MRI of the abdomen shows no definitive lesions. Serum sodium 120. IV fluids discontinued. Repeat CMP tomorrow. 2. Hypertension and hypertensive cardiovascular disease. Currently normotensive patient has been off his antihypertensive medications. 3. GERD. Continue patient on Protonix 40 mg orally once every day. 4. DVT prophylaxis. Bilateral knee-high TAMI hose. Lovenox 40 mg subcutaneous daily. 5. Hyponatremia. Tolvaptan 15 mg x 2 given. 6. Patient is a full code. 7. Discharge plan is rehab at [facility] once medically stable. Impression and plan of care have been directed as dictated by the signing physician. Deanna Lopez, nurse practitioner acting as scribe for signing physician. Objective - Vital Signs Vital signs: Vital Signs Temp 97.9 F 08/22/23 07:53 Pulse 89 08/22/23 07:53 Resp 17 08/22/23 07:53 BP 136/78 08/22/23 07:53 Pulse Ox 96 08/22/23 07:53 FiO2 Intake & Output 08/21/23 08/22/23 08/22/23 18:59 06:59 18:59 Intake Total 704 Output Total 350 Balance 354 Weight 81.193 kg Intake: Oral 704 Output: Urine 350 Other: Voiding Method Urinal # Voids 1 2 - Labs CBC & Chem 7: 08/24/23 04:33 08/24/23 04:33 Labs: Abnormal Lab Results - Last 24 Hours (Table) 08/21/23 08/22/23 08/22/23 Range/Units 14:50 06:56 06:56 RBC 4.30 L (4.40-5.60) X 10*6/uL RDW 16.4 H (11.5-14.5) % Plt Count 66 L (140-440) X 10*3/uL MPV 9.4 L (9.5-12.2) FL Lymphocytes # 0.39 L (0.90-5.00) X 10*3/uL Sodium 122 L 121 L (137-145) mmol/L Chloride 91 L (96-109) mmol/L Carbon Dioxide 15.1 L (21.6-31.8) mmol/L Anion Gap 14.90 H (4.00-12.00) mmol/L Calcium 8.3 L (8.7-10.3) mg/dL Total Bilirubin 1.8 H (0.3-1.2) mg/dL AST 38 H (14-35) U/L Total Protein 6.0 L (6.2-8.2) g/dL Albumin 3.0 L (3.8-4.9) g/dL Albumin/Globulin Ratio 1.00 L (1.60-3.17) Ratio 08/22/23 Range/Units 09:46 RBC (4.40-5.60) X 10*6/uL RDW (11.5-14.5) % Plt Count (140-440) X 10*3/uL MPV (9.5-12.2) FL Lymphocytes # (0.90-5.00) X 10*3/uL Sodium 120 L (137-145) mmol/L Chloride (96-109) mmol/L Carbon Dioxide (21.6-31.8) mmol/L Anion Gap (4.00-12.00) mmol/L Calcium (8.7-10.3) mg/dL Total Bilirubin (0.3-1.2) mg/dL AST (14-35) U/L Total Protein (6.2-8.2) g/dL Albumin (3.8-4.9) g/dL Albumin/Globulin Ratio (1.60-3.17) Ratio Microbiology - Last 24 Hours (Table) 08/16/23 19:35 Blood Culture - Final Blood 08/16/23 19:20 Blood Culture - Final Blood 08/18/23 10:12 Gram Stain - Preliminary Ascites Fluid Body Fluid Culture - Preliminary 08/18/23 10:12 Anaerobic Culture - Preliminary Ascites Fluid
[2023-08-23 09:41] LABS: Basophils # (A) 0.04 X 10*3/uL (0.00-0.10); Basophils % (A) 0.8 %; Eosinophils # (A) 0.15 X 10*3/uL (0.04-0.35); Eosinophils % (A) 2.9 %; HCT 38.8 % (39.6-50.0); HGB 13.6 g/dL (13.0-17.0); Immature Platelet Fraction 2.3 % (1.1-6.1); Lymphocytes # (A) 0.48 X 10*3/uL (0.90-5.00); Lymphocytes % (A) 9.2 %; MCH 32.3 pg (27.0-32.0); MCHC 35.1 g/dL (32.0-37.0); MCV 92.2 FL (80.0-97.0); Mean Platelet Volume 9.3 FL (9.5-12.2); Monocytes # (A) 0.65 X 10*3/uL (0.20-1.00); Monocytes % (A) 12.5 %; NRBC Per 100 WBC 0 X 10*3/uL (0.00-0.01); Neutrophils # (A) 3.85 X 10*3/uL (1.80-7.70); Platelet Count 75 X 10*3/uL (140-440); RBC 4.21 X 10*6/uL (4.40-5.60); RDW 16.6 % (11.5-14.5)
[2023-08-23 10:17] LABS: ALT 26 U/L (10-49); AST 38 U/L (14-35); Albumin 3.1 g/dL (3.8-4.9); Alkaline Phosphatase 72 U/L (41-126); BUN/Creat Ratio 33.14 Ratio (12.00-20.00); Blood Urea Nitrogen 23.2 mg/dL (9.0-27.0); Calcium 8.5 mg/dL (8.7-10.3); Carbon Dioxide 17.9 mmol/L (21.6-31.8); Chloride 93 mmol/L (96-109); Globulin 3.1 g/dL (1.6-3.3); Glucose 92 mg/dL (70-110); Potassium 5.2 mmol/L (3.5-5.5); Sodium 120 mmol/L (135-145); Total Bilirubin 1.8 mg/dL (0.3-1.2); Total Protein 6.2 g/dL (6.2-8.2)
[2023-08-23 11:05] LABS: Glucose,Whole Blood 133 mg/dL (70-110)
--- NOTE | 2023-08-23 11:18 | P.PN ---
Subjective Patient is seen for follow-up for hyponatremia. serum sodium has not improved further with Samsca. it is staying at 120. Patient also received urea yesterday with no further improvement. Patient denies any significant complaints today. Objective - Vital Signs Vital signs: Vital Signs Temp 97.6 F 08/23/23 07:47 Pulse 89 08/23/23 07:47 Resp 17 08/23/23 07:47 BP 103/63 08/23/23 07:47 Pulse Ox 98 08/23/23 08:38 FiO2 Intake & Output 08/22/23 08/23/23 08/23/23 18:59 06:59 18:59 Intake Total 570 Output Total 800 Balance 570 -800 Intake: Oral 570 Output: Urine 800 Other: Voiding Method Urinal # Voids 2 1 - Exam patient is awake, comfortable, no acute distress. answers questions appropriately. Examination of the heart S1 and S2 Examination of the lungs bilateral breath sounds are heard Abdomen is soft nontender Examination of lower extremities shows no edema [employer]NE[employer] exam grossly intact - Labs CBC & Chem 7: 08/23/23 06:22 08/23/23 06:19 Labs: Abnormal Lab Results - Last 24 Hours (Table) 08/22/23 08/23/23 08/23/23 Range/Units 06:56 06:19 06:22 RBC 4.21 L (4.40-5.60) X 10*6/uL Hct 38.8 L (39.6-50.0) % MCH 32.3 H (27.0-32.0) pg RDW 16.6 H (11.5-14.5) % Plt Count 75 L (140-440) X 10*3/uL MPV 9.3 L (9.5-12.2) FL Lymphocytes # 0.48 L (0.90-5.00) X 10*3/uL Sodium 121 L 120 L (135-145) mmol/L Chloride 91 L 93 L (96-109) mmol/L Carbon Dioxide 15.1 L 17.9 L (21.6-31.8) mmol/L Anion Gap 14.90 H (4.00-12.00) mmol/L BUN/Creatinine Ratio 33.14 H (12.00-20.00) Ratio POC Glucose (mg/dL) (70-110) mg/dL Calcium 8.3 L 8.5 L (8.7-10.3) mg/dL Total Bilirubin 1.8 H 1.8 H (0.3-1.2) mg/dL AST 38 H 38 H (14-35) U/L Total Protein 6.0 L (6.2-8.2) g/dL Albumin 3.0 L 3.1 L (3.8-4.9) g/dL Albumin/Globulin Ratio 1.00 L 1.00 L (1.60-3.17) Ratio 08/23/23 Range/Units 11:03 RBC (4.40-5.60) X 10*6/uL Hct (39.6-50.0) % MCH (27.0-32.0) pg RDW (11.5-14.5) % Plt Count (140-440) X 10*3/uL MPV (9.5-12.2) FL Lymphocytes # (0.90-5.00) X 10*3/uL Sodium (135-145) mmol/L Chloride (96-109) mmol/L Carbon Dioxide (21.6-31.8) mmol/L Anion Gap (4.00-12.00) mmol/L BUN/Creatinine Ratio (12.00-20.00) Ratio POC Glucose (mg/dL) 133 H (70-110) mg/dL Calcium (8.7-10.3) mg/dL Total Bilirubin (0.3-1.2) mg/dL AST (14-35) U/L Total Protein (6.2-8.2) g/dL Albumin (3.8-4.9) g/dL Albumin/Globulin Ratio (1.60-3.17) Ratio Microbiology - Last 24 Hours (Table) 08/18/23 10:12 Gram Stain - Final Ascites Fluid Body Fluid Culture - Final 08/16/23 19:35 Blood Culture - Final Blood 08/16/23 19:20 Blood Culture - Final Blood Assessment and Plan Assessment: 1. Hyponatremia, secondary to SIADH with worsening of serum sodium with normal saline challenge. Urine osmolality at 522 and random urine sodium was 61. Status post Samsca x4 with no significant improvement. started on urea yester day. I prefer to hold back on Samsca given the underlying liver cirrhosis. Patient will need 3% saline 2. Liver cirrhosis with ascites status post paracentesis and removal of 4.8 L on 08/18/2023. 3. Umbilical hernia 4. Right renal cyst, benign appearing Plan: continue with urea At 3% saline Add demeclocycline Repeat urine osmolality and random urine sodium although it may not be accurate as patient received Samsca. Continue with fluid restriction.
[2023-08-23] MEDS: UREA 15 GM PO SCH (11:42)
[2023-08-23 16:37] LABS: Glucose,Whole Blood 107 mg/dL (70-110)
--- NOTE | 2023-08-23 20:25 | P.PN ---
Subjective Progress Note Date: 08/23/23 HISTORY OF PRESENT ILLNESS: This is a 63 year old male with a previous medical history significant for hypertension and hypertensive cardiovascular disease, hyperlipidemia, history of pancreatitis in the past along with prior history of sepsis due to cellulitis about 4 year ago, history of chronic alcoholic hepatitis with alcoholic liver cirrhosis with elevated coags liver function test. Patient presented to the emergency department 2 days ago for fatigue, weakness, abdominal pain, and fever of 102 degrees at home. Chest XR negative for acute cardiopulmonary process. CT of the abdomen/pelvis reveals cirrhosis with port venous hypterention, moderate ascites and distal esophageal varices with splenomegaly at 14 cm, a 2 cm lession anterior right hepatic dome. Patient was placed on IV Rocephin. IR was consulted for therapeutic paracentesis. MRI of the abdomen has been ordered. The brain CT showed age-related atrophic changes plus chronic small vessel ischemia without acute intracranial process. Blood work completed in ED reveals a WBC of 10.7, hemoglobin of 13.2 and platelet count of 108, PT 15 with INR of 1.5, sodium 120, potassium 5.1, BUNs/creatinine of 25/0.74, CRP of 2.30; UA is completed and is unremarkable. 08/17: Patient is lying in bed and is very lethargic at this time. Awaiting MRI of the abdomen. Patient did have ultrasound-guided paracentesis today with approximately 4800 cc of clear straw-colored fluid. Pathology pending. Continue 2 g of Rocephin IV once daily. Will start Lovenox 40 mg subcu daily for DVT prophylaxis. Continue current medications and pain management. Continue 1500 cc fluid restriction as well as oral nutrition supplementation. Sodium is up from 120 to 122 today. Patient remains a full code. 08/18: MRI of the abdomen complete, pending result. Urine osmolality 522, random urine sodium 61, serum sodium 123. Nephrology has seen the patient. Continue 0.9 at 75 cc an hour. Continue Rocephin 2 g daily. And we will repeat the sodium level this afternoon. Continue 1500 cc fluid restriction as well as oral nutrition supplementation. 08/19: Patient is sitting up in a chair at this time, alert, oriented, and making conversation. MRI of the abdomen showed no definitive lesions identified in the area of concern; however, small lesions are not excluded. The MRI also showed hepatic cirrhosis with evidence of portal hypertension with splenomegaly and ascites. Sodium today is 122, fluids have been discontinued. Tolvaptan 15 mg p.o. has been administered. Patient remains on a 1500 cc fluid restriction. We will repeat CMP tomorrow. Continue PT and OT. Plan is for [facility] for rehabilitation when patient is discharged. 08/20: Patient is lying in bed with friend at bedside. He is alert and oriented. A second dose of tolvaptan 15 mg given today, as well as 1 g of sodium chloride. Patient remains on a 1500 cc fluid restriction. We will repeat CBC and CMP tomorrow. Continue PT and OT. 08/21: Patient is lying in bed, states he feels good today. Denies chest pain or shortness of breath, denies pain. Last sodium level is 120. Patient has had 3 doses of tolvaptan 15 mg. He has also had 1 g of sodium chloride yesterday and 2 g of sodium chloride today. Maintain 1500 cc fluid restriction. We will repeat labs tomorrow. Once his sodium is stable, plan is for discharged to [facility]. 08/22: Sodium remains at 120 despite multiple doses of tolvaptan and sodium chloride. Patient was started on urea yesterday but will likely need 3% saline if sodium level does not improve. Continue fluid restriction, we will repeat labs tomorrow morning. REVIEW OF SYSTEMS: Constitutional: Positive fever, no chills, no night sweats. No weight change. Positive for weakness, positive for fatigue. No daytime sleepiness. HEENT: No headache. No blurred vision or double vision, no loss of vision. No loss of Hearing, no ringing in the ears, no dizziness. No nasal drainage or congestion. No epistaxis. No sore throat. Lungs: No shortness of breath, no cough, no sputum production. No wheezing. Reports dyspnea with activity. Cardiovascular: No chest pain, positive for lower extremity edema. No palpitations. No paroxysmal nocturnal dyspnea. No orthopnea. No lightheadedness or dizziness. No syncopal episodes. Abdominal: Reports abdominal pain and distention. No nausea, vomiting, diarrhea. No constipation. No bloody or tarry stools reports loss of appetite. Genitourinary: No dysuria, increased frequency, urgency. No urinary retention. Musculoskeletal: No myalgias. positive for muscle weakness, no gait dysfunction, no frequent falls. No back pain. No neck pain. Integumentary: No wounds, no lesions. No rash or pruritus. No unusual bruising. No change in hair or nails. Neurologic: No aphasia. No facial droop. No change in mentation. No head injury. No headache. No paralysis. No paresthesia. Psychiatric: No depression. No anxiety. No mood swings. Endocrine: No abnormal blood sugars. No weight change. PHYSICAL EXAMINATION: General: 63-year-old male laying down and lethargic. HEENT: Head is atraumatic, normocephalic, pupils were equal round reactive to light and recommendation, extraocular muscle movement were intact, sclera are deeply icteric, conjunctivae were pale, mucous membranes of the mouth are somewhat dry. Neck: Supple, no JVP, normal carotid upstroke bilaterally, no lymphadenopathy. Chest: Decreased breath sounds at the bases, no expiratory wheezes, no chest wall tenderness, no intercostal retractions. Heart: First heart sound is normal, second heart sounds normal there is BLANCA 2/6 located at the left sternal border Abdomen: Soft, distended, moderate ascites, generalized tenderness, positive bowel sounds. Extremities: No edema, no calf tenderness DP +2 bilaterally. Neurologic examination: Patient is awake and oriented X 2, cranial nerves II-12 appear grossly intact, muscle power were 4 out of 5 in upper extremities and 4 out of 5 in bilateral lower extremities, deep tendon reflexes normal bilaterally. ASSESSMENT AND PLAN: 1. Acute on chronic alcohol hepatitis with alcoholic liver cirrhosis and ascites. Monitor patient's input and output and daily weight. MRI of the abdomen shows no definitive lesions. Serum sodium 120. IV fluids discontinued. Repeat CMP tomorrow. 2. Hyponatremia, secondary to SIADH with worsening of serum sodium with normal saline challenge. Tolvaptan 15 mg given x 4. Started on urea. May need 3% saline if sodium does not improve. 3. Hypertension and hypertensive cardiovascular disease. Currently norm otensive patient has been off his antihypertensive medications. 4. GERD. Continue patient on Protonix 40 mg orally once every day. 5. DVT prophylaxis. Bilateral knee-high TAMI hose. Lovenox 40 mg subcutaneous daily. 6. Patient is a full code. 7. Discharge plan is rehab at [facility] once medically stable. Impression and plan of care have been directed as dictated by the signing physic german. Deanna Marlatt, nurse practitioner acting as scribe for signing physician. Objective - Vital Signs Vital signs: Vital Signs Temp 97.6 F 08/23/23 07:47 Pulse 89 08/23/23 07:47 Resp 17 08/23/23 07:47 BP 103/63 08/23/23 07:47 Pulse Ox 98 08/23/23 08:38 FiO2 Intake & Output 08/22/23 08/23/23 08/23/23 18:59 06:59 18:59 Intake Total 570 Output Total 800 Balance 570 -800 Intake: Oral 570 Output: Urine 800 Other: Voiding Method Urinal # Voids 2 1 - Labs CBC & Chem 7: 08/24/23 04:33 08/24/23 04:33 Labs: Abnormal Lab Results - Last 24 Hours (Table) 08/23/23 08/23/23 08/23/23 Range/Units 06:19 06:22 11:03 RBC 4.21 L (4.40-5.60) X 10*6/uL Hct 38.8 L (39.6-50.0) % MCH 32.3 H (27.0-32.0) pg RDW 16.6 H (11.5-14.5) % Plt Count 75 L (140-440) X 10*3/uL MPV 9.3 L (9.5-12.2) FL Lymphocytes # 0.48 L (0.90-5.00) X 10*3/uL Sodium 120 L (135-145) mmol/L Chloride 93 L (96-109) mmol/L Carbon Dioxide 17.9 L (21.6-31.8) mmol/L BUN/Creatinine Ratio 33.14 H (12.00-20.00) Ratio POC Glucose (mg/dL) 133 H (70-110) mg/dL Calcium 8.5 L (8.7-10.3) mg/dL Total Bilirubin 1.8 H (0.3-1.2) mg/dL AST 38 H (14-35) U/L Albumin 3.1 L (3.8-4.9) g/dL Albumin/Globulin Ratio 1.00 L (1.60-3.17) Ratio Microbiology - Last 24 Hours (Table) 08/18/23 10:12 Gram Stain - Final Ascites Fluid Body Fluid Culture - Final 08/16/23 19:35 Blood Culture - Final Blood 08/16/23 19:20 Blood Culture - Final Blood
[2023-08-24 05:51] LABS: ALT 26 U/L (4-49); AST 37 U/L (17-59); African American GFR (CKD) >90 (>60 ml/min/1.73 sqM); Albumin 2.3 g/dL (3.5-5.0); Albumin/Globulin Ratio 0.7; Alkaline Phosphatase 76 U/L (38-126); Anion Gap 4 mmol/L; Blood Urea Nitrogen 37 mg/dL (9-20); Calcium 7.8 mg/dL (8.4-10.2); Carbon Dioxide 20 mmol/L (22-30); Chloride 94 mmol/L (98-107); Globulin 3.4 g/dL; Glucose 85 mg/dL (74-99); Non-African American GFR(CKD) >90 (>60 ml/min/1.73 sqM); Potassium 5.1 mmol/L (3.5-5.1); Total Bilirubin 1.9 mg/dL (0.2-1.3); Total Protein 5.7 g/dL (6.3-8.2)
[2023-08-24 05:58] LABS: Sodium 118 mmol/L (137-145)
[2023-08-24] MEDS: SODIUM CHLORIDE 3%(HYPERTONIC) 500 ML IV ONE ×2 (07:56→10:41)
[2023-08-24 10:09] LABS: Basophils # (A) 0.02 X 10*3/uL (0.00-0.10); Basophils % (A) 0.4 %; Eosinophils # (A) 0.12 X 10*3/uL (0.04-0.35); Eosinophils % (A) 2.5 %; HGB 12.5 g/dL (13.0-17.0); Immature Platelet Fraction 2.1 % (1.1-6.1); Lymphocytes # (A) 0.38 X 10*3/uL (0.90-5.00); Lymphocytes % (A) 8.1 %; MCH 33.1 pg (27.0-32.0); MCHC 35.7 g/dL (32.0-37.0); MCV 92.6 FL (80.0-97.0); Mean Platelet Volume 10.1 FL (9.5-12.2); Monocytes # (A) 0.66 X 10*3/uL (0.20-1.00); NRBC Per 100 WBC 0 X 10*3/uL (0.00-0.01); Neutrophils # (A) 3.51 X 10*3/uL (1.80-7.70); Neutrophils % (A) 74.6 %; Platelet Count 47 X 10*3/uL (140-440); RBC 3.78 X 10*6/uL (4.40-5.60); RBC Morphology Normal (Normal); RDW 16.4 % (11.5-14.5); WBC 4.71 X 10*3/uL (4.50-10.00)
[2023-08-24 10:30] LABS: Glucose,Whole Blood 205 mg/dL (70-110)
--- NOTE | 2023-08-24 13:36 | P.CNPUL ---
History of Present Illness Consult date: 08/24/23 Requesting physician: Reggie Cho Reason for consult: other Chief complaint: Hyponatremia. History of present illness: Pulmonary consult dated August 24, 2023. This is a 63-year-old male with a history of cirrhosis, who apparently presented to the emergency department, on August 15. He was brought in by EMS. Apparently was very weak, and "out of it". He was having some generalized abdominal disc omfort, and also had a fever at home. The patient was noted to have a low sodium, and, the nephrology team, has been trying to get a sodium back in the normal range. Recently, the sodium dipped down below 120, to 119, and this morning, the sodium was 118. Dr. Tran, called me on the phone, they asked me whether or not we could move the patient to the intensive care unit, for 3% saline. 3% saline was started today at 35 cc an hour. Repeat sodium level is pending. The patient is seen today in room 266. He is on room air. He is not receiving any additional fluids other than the 3% saline. The patient has a history of hypertension, liver cirrhosis, splenomegaly, pancreatitis, and cellul itis. The patient has had previous paracentesis abdominis. He is a lifelong non-smoker. Current laboratory data includes a white count 4.71, hemoglobin 12.5, hematocrit 35, and a platelet count of 47,000. Sodium is 118, potassium 5.1, chlorides 94, CO2 20, BUN 37, creatinine 0.61. Glucose is 205. Calcium 7.8. Blood cultures are currently negative. Ascitic fluid, from August 17, is currently negative or pending. Review of Systems REVIEW OF SYSTEMS: CONSTITUTIONAL: Weakness. NEUROLOGIC: [ Negative.] HEENT: [ Negative.] CARDIAC: [Negative.] PULMONARY: [Negative.] GI: [Negative.] : [Negative.] RHEUMATOLOGIC: [ Negative.] IMMUNOLOGIC: [ Negative.] ENDOCRINE: [Negative. ] DERMATOLOGIC: [Negative.] Past Medical History Past Medical History: Hypertension, Liver Disease, Pneumonia Additional Past Medical History / Comment(s): Liver cirrhosis, splenomegaly, pancreatitis-pt states pancreatitis was side effect from Lisinopril, pt denies hx of alcoholism/drinking heavily, cellulitis with sepsis, ASCITES History of Any Multi-Drug Resistant Organisms: None Reported Past Surgical History: No Surgical Hx Reported Additional Past Surgical History / Comment(s): dental extraction, cataract bilateral - Pt states he was awake for both procedure and has never had general anesthesia Past Anesthesia/Blood Transfusion Reactions: No Reported Reaction, Unable to Obtain Additional Past Anesthesia/Blood Transfusion Reaction / Comment(s): Pt has never had anesthesia Past Psychological History: No Psychological Hx Reported Additional Psychological History / Comment(s): He uses a cane to ambulate. He can drive and states he is indpendent. Smoking Status: Never smoker Past Alcohol Use History: None Reported Additional Past Alcohol Use History / Comment(s): had not drank alcohol since 2017 Past Drug Use History: None Reported - Past Family History Mother Family Medical History: Hypertension Additional Family Medical History / Comment(s): Mother lived to be 91 yrs old. Father Family Medical History: CVA/TIA Additional Family Medical History / Comment(s): Father of a CVA at the age of 65yrs. Son(s) Family Medical History: No Reported History Daughter(s) Family Medical History: No Reported History Medications and Allergies Home Medications Medication Instructions Recorded Confirmed Type traZODone HCL [Desyrel] 100 mg PO HS 06/18/21 08/16/23 History Pantoprazole [Protonix] 40 mg PO AC-[id number] tab 06/22/21 08/16/23 Rx Midodrine [ProAmatine] 5 mg PO Q8H 07/13/21 08/16/23 History Folic Acid 1 mg PO DAILY tab 07/18/21 08/16/23 Rx Furosemide [Lasix] 40 mg PO BID@0900,1600 tab 07/18/21 08/16/23 Rx Potassium Chloride ER [K-Dur 20] 20 meq PO DAILY tablet 07/18/21 08/16/23 Rx Albuterol Inhaler [Ventolin Hfa 2 puff INHALATION RT-TID PRN 08/06/23 08/16/23 History Inhaler] Spironolactone [Aldactone] 100 mg PO DAILY 08/16/23 08/16/23 History Allergies Allergy/AdvReac Type Severity Reaction Status Date / Time lisinopril AdvReac causes Verified 08/16/23 19:37 pancreatitis Physical Exam Osteopathic Statement: *. No significant issues noted on an osteopathic structural exam other than those noted in the History and Physical/Consult. Vitals: Vital Signs Temp Pulse Pulse Resp BP BP Pulse Ox 08/24/23 13:00 82 15 104/70 97 08/24/23 12:00 97.4 F L 83 16 100/65 95 08/24/23 11:00 80 14 102/68 96 08/24/23 10:06 97.8 F 84 17 102/68 98 08/24/23 06:45 98.0 F 78 17 119/66 97 08/24/23 02:00 97.6 F 77 16 127/77 97 08/23/23 18:32 98.5 F 85 16 111/68 95 08/23/23 14:00 98.4 F 84 16 101/64 97 Intake and Output 08/23/23 08/24/23 08/24/23 22:59 06:59 14:59 Intake Total 360 565 Output Total 750 0 Balance -390 565 Intake: IV 105 Sodium Chloride 3%( 105 Hypertonic) 500 ml @ 35 mls/hr IV .[id number] ONE Rx #:[id number] Oral 240 460 Other 120 Output: Urine 750 0 Other: # Voids 3 No acute distress, oriented 3. Currently on room air. No respiratory distress. HEENT examination is grossly unremarkable. Mucous membranes are moist. No oral lesions. Neck supple. Full range of motion. No adenopathy thyromegaly or neck vein distention. Cardiovascular examination reveals regular rhythm rate. S1-S2 normal. No S3 or S4. No discernible murmur noted. Heart rate 82 bpm. Lungs reveal clear breath sounds. Breath sounds are equal bilaterally. No adventitious lung sounds including wheezes rhonchi or crackles. Room air saturation 97%. Abdomen soft with bowel sounds. No masses or tenderness. Extremities are intact. No cyanosis clubbing or edema. Skin is without rash or lesion. Neurologic examination is brief but nonfocal. Results - Laboratory Findings CBC and BMP: 08/24/23 04:33 08/24/23 04:33 PT/INR, D-dimer PT 15.0 sec (10.0-12.5) H 08/16/23 19:35 INR 1.5 (<1.2) H 08/16/23 19:35 Abnormal lab findings: Abnormal Labs 08/16/23 08/16/2324 19:35 19:35 19:35 WBC 10.7 H RBC 4.09 L Hgb Hct 38.1 L MCH RDW 15.7 H Plt Count 108 L D MPV Neutrophils # 8.3 H Lymphocytes # 0.3 L Monocytes # 1.8 H PT 15.0 H INR 1.5 H Sodium 120 L Chloride 92 L Carbon Dioxide 18 L Anion Gap BUN 25 H Creatinine BUN/Creatinine Ratio Glucose POC Glucose (mg/dL) Osmolality Calcium 8.0 L Total Bilirubin 3.3 H Conjugated Bilirubin Unconjugated Bilirubin AST C-Reactive Protein 2.3 H Total Protein Albumin 2.9 L Albumin/Globulin Ratio Procalcitonin TSH 0.272 L Urine Protein Urine Ketones Ur Random Sodium 08/16/23 08/18/23 08/18/23 21:27 05:12 05:12 WBC RBC 4.01 L Hgb Hct 37.2 L MCH 32.4 H RDW 15.6 H Plt Count 80 L MPV Neutrophils # Lymphocytes # 0.24 L Monocytes # PT INR Sodium Chloride Carbon Dioxide Anion Gap BUN Creatinine BUN/Creatinine Ratio Glucose POC Glucose (mg/dL) Osmolality Calcium Total Bilirubin Conjugated Bilirubin Unconjugated Bilirubin AST C-Reactive Protein Total Protein Albumin Albumin/Globulin Ratio Procalcitonin 0.11 H TSH Urine Protein Trace H Urine Ketones 1+ H Ur Random Sodium 08/18/23 08/18/23 08/18/23 05:12 05:12 13:15 WBC RBC Hgb Hct MCH RDW Plt Count MPV Neutrophils # Lymphocytes # Monocytes # PT INR Sodium 121 L 122 L Chloride 91 L 96 L Carbon Dioxide 16.8 L 15 L Anion Gap 13.20 H BUN Creatinine BUN/Creatinine Ratio 20.33 H Glucose 106 H POC Glucose (mg/dL) Osmolality 260 L Calcium 8.3 L 7.9 L Total Bilirubin 2.3 H Conjugated Bilirubin 1.17 H Unconjugated Bilirubin 1.13 H AST C-Reactive Protein Total Protein 5.9 L Albumin 3.0 L Albumin/Globulin Ratio 1.03 L Procalcitonin TSH Urine Protein Urine Ketones Ur Random Sodium 08/19/23 08/19/23 08/19/23 04:51 13:45 17:18 WBC RBC Hgb Hct MCH RDW 15.8 H Plt Count 82 L MPV Neutrophils # Lymphocytes # 0.2 L Monocytes # PT INR Sodium 123 L 120 L Chloride Carbon Dioxide 16 L Anion Gap BUN Creatinine BUN/Creatinine Ratio Glucose POC Glucose (mg/dL) Osmolality Calcium 8.1 L Total Bilirubin 2.1 H Conjugated Bilirubin Unconjugated Bilirubin AST C-Reactive Protein Total Protein Albumin 2.8 L Albumin/Globulin Ratio Procalcitonin TSH Urine Protein Urine Ketones Ur Random Sodium 08/20/23 08/20/23 08/21/23 08:57 13:59 06:43 WBC RBC Hgb Hct MCH RDW 15.8 H Plt Count 81 L MPV Neutrophils # Lymphocytes # 0.4 L Monocytes # PT INR Sodium 122 L 122 L Chloride 95 L 97 L Carbon Dioxide 18 L Anion Gap BUN Creatinine 0.65 L BUN/Creatinine Ratio Glucose 154 H 101 H POC Glucose (mg/dL) Osmolality Calcium 8.0 L 8.2 L Total Bilirubin 2.0 H Conjugated Bilirubin Unconjugated Bilirubin AST C-Reactive Protein Total Protein 6.1 L Albumin 2.7 L 2.6 L Albumin/Globulin Ratio Procalcitonin TSH Urine Protein Urine Ketones Ur Random Sodium 08/21/23 08/22/23 08/22/23 14:50 06:56 06:56 WBC RBC 4.30 L Hgb Hct MCH RDW 16.4 H Plt Count 66 L MPV 9.4 L Neutrophils # Lymphocytes # 0.39 L Monocytes # PT INR Sodium 122 L 121 L Chloride 91 L Carbon Dioxide 15.1 L Anion Gap 14.90 H BUN Creatinine BUN/Creatinine Ratio Glucose POC Glucose (mg/dL) Osmolality Calcium 8.3 L Total Bilirubin 1.8 H Conjugated Bilirubin Unconjugated Bilirubin AST 38 H C-Reactive Protein Total Protein 6.0 L Albumin 3.0 L Albumin/Globulin Ratio 1.00 L Procalcitonin TSH Urine Protein Urine Ketones Ur Random Sodium 08/22/23 08/23/23 08/23/23 09:46 06:19 06:22 WBC RBC 4.21 L Hgb Hct 38.8 L MCH 32.3 H RDW 16.6 H Plt Count 75 L MPV 9.3 L Neutrophils # Lymphocytes # 0.48 L Monocytes # PT INR Sodium 120 L 120 L Chloride 93 L Carbon Dioxide 17.9 L Anion Gap BUN Creatinine BUN/Creatinine Ratio 33.14 H Glucose POC Glucose (mg/dL) Osmolality Calcium 8.5 L Total Bilirubin 1.8 H Conjugated Bilirubin Unconjugated Bilirubin AST 38 H C-Reactive Protein Total Protein Albumin 3.1 L Albumin/Globulin Ratio 1.00 L Procalcitonin TSH Urine Protein Urine Ketones Ur Random Sodium 08/23/23 08/23/23 08/23/23 11:03 16:42 17:00 WBC RBC Hgb Hct MCH RDW Plt Count MPV Neutrophils # Lymphocytes # Monocytes # PT INR Sodium 119 L* Chloride Carbon Dioxide Anion Gap BUN Creatinine BUN/Creatinine Ratio Glucose POC Glucose (mg/dL) 133 H Osmolality Calcium Total Bilirubin Conjugated Bilirubin Unconjugated Bilirubin AST C-Reactive Protein Total Protein Albumin Albumin/Globulin Ratio Procalcitonin TSH Urine Protein Urine Ketones Ur Random Sodium <20 L 08/24/23 08/24/23 08/24/23 04:33 04:33 10:27 WBC RBC 3.78 L Hgb 12.5 L Hct 35.0 L MCH 33.1 H RDW 16.4 H Plt Count 47 L MPV Neutrophils # Lymphocytes # 0.38 L Monocytes # PT INR Sodium 118 L* Chloride 94 L Carbon Dioxide 20 L Anion Gap BUN 37 H Creatinine 0.61 L BUN/Creatinine Ratio Glucose POC Glucose (mg/dL) 205 H Osmolality Calcium 7.8 L Total Bilirubin 1.9 H Conjugated Bilirubin Unconjugated Bilirubin AST C-Reactive Protein Total Protein 5.7 L Albumin 2.3 L Albumin/Globulin Ratio Procalcitonin TSH Urine Protein Urine Ketones Ur Random Sodium - Diagnostic Findings Chest x-ray: image reviewed Assessment and Plan Assessment: Severe hyponatremia, currently on 35 cc an hour of 3% saline. Hypovolemic hyponatremia, secondary to diuretics. History of liver cirrhosis with ascites, S/P high-volume paracentesis abdominous, August 18, 2023. Hypertension. History of pneumonia. History of splenomegaly. History of pancreatitis. Plan: Plan dated August 24, 2023. Dr. Tran requested an ICU bed, so that we can start this patient on 3% saline. It was started just a few minutes ago, at 35 cc an hour. Repeat sodium level is pending. Labs, x-rays, medications are reviewed. Clinically, the patient stable. Blood pressure is well-controlled. We will continue to follow patient, make recommendations along the way. No major issues from the critical care standpoint at this time. Close monitoring of the patient's sodium is necessary. The patient continues on Lovenox, folic acid, midodrine, morphine sulfate, Protonix, and trazodone. Time with Patient: Greater than 30
--- NOTE | 2023-08-24 13:45 | P.PN ---
Subjective Progress Note Date: 08/24/23 HISTORY OF PRESENT ILLNESS: This is a 63 year old male with a previous medical history significant for hypertension and hypertensive cardiovascular disease, hyperlipidemia, history of pancreatitis in the past along with prior history of sepsis due to cellulitis about 4 year ago, history of chronic alcoholic hepatitis with alcoholic liver cirrhosis with elevated coags liver function test. Patient presented to the emergency department 2 days ago for fatigue, weakness, abdominal pain, and fever of 102 degrees at home. Chest XR negative for acute cardiopulmonary process. CT of the abdomen/pelvis reveals cirrhosis with port venous hypterention, moderate ascites and distal esophageal varices with splenomegaly at 14 cm, a 2 cm lession anterior right hepatic dome. Patient was placed on IV Rocephin. IR was consulted for therapeutic paracentesis. MRI of the abdomen has been ordered. The brain CT showed age-related atrophic changes plus chronic small vessel ischemia without acute intracranial process. Blood work completed in ED reveals a WBC of 10.7, hemoglobin of 13.2 and platelet count of 108, PT 15 with INR of 1.5, sodium 120, potassium 5.1, BUNs/creatinine of 25/0.74, CRP of 2.30; UA is completed and is unremarkable. 08/17: Patient is lying in bed and is very lethargic at this time. Awaiting MRI of the abdomen. Patient did have ultrasound-guided paracentesis today with approximately 4800 cc of clear straw-colored fluid. Pathology pending. Continue 2 g of Rocephin IV once daily. Will start Lovenox 40 mg subcu daily for DVT prophylaxis. Continue current medications and pain management. Continue 1500 cc fluid restriction as well as oral nutrition supplementation. Sodium is up from 120 to 122 today. Patient remains a full code. 08/18: MRI of the abdomen complete, pending result. Urine osmolality 522, random urine sodium 61, serum sodium 123. Nephrology has seen the patient. Continue 0.9 at 75 cc an hour. Continue Rocephin 2 g daily. And we will repeat the sodium level this afternoon. Continue 1500 cc fluid restriction as well as oral nutrition supplementation. 08/19: Patient is sitting up in a chair at this time, alert, oriented, and making conversation. MRI of the abdomen showed no definitive lesions identified in the area of concern; however, small lesions are not excluded. The MRI also showed hepatic cirrhosis with evidence of portal hypertension with splenomegaly and ascites. Sodium today is 122, fluids have been discontinued. Tolvaptan 15 mg p.o. has been administered. Patient remains on a 1500 cc fluid restriction. We will repeat CMP tomorrow. Continue PT and OT. Plan is for [facility] for rehabilitation when patient is discharged. 08/20: Patient is lying in bed with friend at bedside. He is alert and oriented. A second dose of tolvaptan 15 mg given today, as well as 1 g of sodium chloride. Patient remains on a 1500 cc fluid restriction. We will repeat CBC and CMP tomorrow. Continue PT and OT. 08/21: Patient is lying in bed, states he feels good today. Denies chest pain or shortness of breath, denies pain. Last sodium level is 120. Patient has had 3 doses of tolvaptan 15 mg. He has also had 1 g of sodium chloride yesterday and 2 g of sodium chloride today. Maintain 1500 cc fluid restriction. We will repeat labs tomorrow. Once his sodium is stable, plan is for discharged to [facility]. 08/22: Sodium remains at 120 despite multiple doses of tolvaptan and sodium chloride. Patient was started on urea yesterday but will likely need 3% saline if sodium level does not improve. Continue fluid restriction, we will repeat labs tomorrow morning. 08/23: Patient was moved to ICU this morning for close monitoring due to initiation of 3% saline at 35 cc an hour. Latest sodium level 118. We will recheck sodium level every 4 hours. Continue 1500 cc fluid restriction. Patient doing well aside from the hyponatremia, he has no complaints at this time. REVIEW OF SYSTEMS: Constitutional: Positive fever, no chills, no night sweats. No weight change. Positive for weakness, positive for fatigue. No daytime sleepiness. HEENT: No headache. No blurred vision or double vision, no loss of vision. No loss of Hearing, no ringing in the ears, no dizziness. No nasal drainage or congestion. No epistaxis. No sore throat. Lungs: No shortness of breath, no cough, no sputum production. No wheezing. Reports dyspnea with activity. Cardiovascular: No chest pain, positive for lower extremity edema. No palpitat ions. No paroxysmal nocturnal dyspnea. No orthopnea. No lightheadedness or dizziness. No syncopal episodes. Abdominal: Reports abdominal pain and distention. No nausea, vomiting, diarrhea. No constipation. No bloody or tarry stools reports loss of appetite. Genitourinary: No dysuria, increased frequency, urgency. No urinary retention. Musculoskeletal: No myalgias. positive for muscle weakness, no gait dysfunction, no frequent falls. No back pain. No neck pain. Integumentary: No wounds, no lesions. No rash or pruritus. No unusual bruising. No change in hair or nails. Neurologic: No aphasia. No facial droop. No change in mentation. No head injury. No headache. No paralysis. No paresthesia. Psychiatric: No depression. No anxiety. No mood swings. Endocrine: No abnormal blood sugars. No weight change. PHYSICAL EXAMINATION: General: 63-year-old male laying down and lethargic. HEENT: Head is atraumatic, normocephalic, pupils were equal round reactive to light and recommendation, extraocular muscle movement were intact, sclera are deeply icteric, conjunctivae were pale, mucous membranes of the mouth are somewhat dry. Neck: Supple, no JVP, normal carotid upstroke bilaterally, no lymphadenopathy. Chest: Decreased breath sounds at the bases, no expiratory wheezes, no chest wall tenderness, no intercostal retractions. Heart: First heart sound is normal, second heart sounds normal there is BLANCA 2/6 located at the left sternal border Abdomen: Soft, distended, moderate ascites, generalized tenderness, positive bowel sounds. Extremities: No edema, no calf tenderness DP +2 bilaterally. Neurologic examination: Patient is awake and oriented X 2, cranial nerves II-12 appear grossly intact, muscle power were 4 out of 5 in upper extremities and 4 out of 5 in bilateral lower extremities, deep tendon reflexes normal bilaterally. ASSESSMENT AND PLAN: 1. Acute on chronic alcohol hepatitis with alcoholic liver cirrhosis and ascites. Monitor patient's input and output and daily weight. MRI of the abdomen shows no definitive lesions. Serum sodium 120. IV fluids discontinued. Repeat CMP tomorrow. 2. Hyponatremia, secondary to SIADH with worsening of serum sodium with normal saline challenge. Tolvaptan 15 mg given x 4. Started on urea. Patient started on 3% saline at 35 cc an hour and transferred to the ICU for close monitoring. 3. Hypertension and hypertensive cardiovascular disease. Currently normotensive patient has been off his antihypertensive medications. 4. GERD. Continue patient on Protonix 40 mg orally once every day. 5. DVT prophylaxis. Bilateral knee-high TAMI hose. Lovenox 40 mg subcutaneous daily. 6. Patient is a full code. 7. Discharge plan is rehab at [facility] once medically stable. Impression and plan of care have been directed as dictated by the signing physician. Deanna Lopez, nurse practitioner acting as scribe for signing physician. Objective - Vital Signs Vital signs: Vital Signs Temp 97.4 F L 08/24/23 12:00 Pulse 82 08/24/23 13:00 Resp 15 08/24/23 13:00 BP 104/70 08/24/23 13:00 Pulse Ox 97 08/24/23 13:00 FiO2 Intake & Output 08/23/23 08/24/23 08/24/23 18:59 06:59 18:59 Intake Total 478 565 Output Total 1250 300 0 Balance -772 -300 565 Intake: IV 105 Sodium Chloride 3%( 105 Hypertonic) 500 ml @ 35 mls/hr IV .[id number] ONE Rx #:[id number] Oral 358 460 Other 120 Output: Urine 1250 300 0 Other: # Voids 3 - Labs CBC & Chem 7: 08/24/23 04:33 08/24/23 04:33 Labs: Abnormal Lab Results - Last 24 Hours (Table) 08/23/23 08/23/23 08/24/23 Range/Units 16:42 17:00 04:33 RBC (4.40-5.60) X 10*6/uL Hgb (13.0-17.0) g/dL Hct (39.6-50.0) % MCH (27.0-32.0) pg RDW (11.5-14.5) % Plt Count (140-440) X 10*3/uL Lymphocytes # (0.90-5.00) X 10*3/uL Sodium 119 L* 118 L* (137-145) mmol/L Chloride 94 L (98-107) mmol/L Carbon Dioxide 20 L (22-30) mmol/L BUN 37 H (9-20) mg/dL Creatinine 0.61 L (0.66-1.25) mg/dL POC Glucose (mg/dL) (70-110) mg/dL Calcium 7.8 L (8.4-10.2) mg/dL Total Bilirubin 1.9 H (0.2-1.3) mg/dL Total Protein 5.7 L (6.3-8.2) g/dL Albumin 2.3 L (3.5-5.0) g/dL Ur Random Sodium <20 L (40-220) mmol/L 08/24/23 08/24/23 Range/Units 04:33 10:27 RBC 3.78 L (4.40-5.60) X 10*6/uL Hgb 12.5 L (13.0-17.0) g/dL Hct 35.0 L (39.6-50.0) % MCH 33.1 H (27.0-32.0) pg RDW 16.4 H (11.5-14.5) % Plt Count 47 L (140-440) X 10*3/uL Lymphocytes # 0.38 L (0.90-5.00) X 10*3/uL Sodium (137-145) mmol/L Chloride (98-107) mmol/L Carbon Dioxide (22-30) mmol/L BUN (9-20) mg/dL Creatinine (0.66-1.25) mg/dL POC Glucose (mg/dL) 205 H (70-110) mg/dL Calcium (8.4-10.2) mg/dL Total Bilirubin (0.2-1.3) mg/dL Total Protein (6.3-8.2) g/dL Albumin (3.5-5.0) g/dL Ur Random Sodium (40-220) mmol/L Microbiology - Last 24 Hours (Table) 08/18/23 10:12 Anaerobic Culture - Final Ascites Fluid
--- NOTE | 2023-08-24 19:17 | P.PN ---
Subjective Patient is seen for follow-up for hyponatremia. serum sodium has not improved further with Samsca. Patient is also maintained on urea. Sodium dropped to 118 today. Patient will be started on 3% salineand will be transferred to ICU. Patient denies any significant complaints today. Objective - Vital Signs Vital signs: Vital Signs Temp 97.4 F L 08/24/23 12:00 Pulse 80 08/24/23 19:00 Resp 15 08/24/23 19:00 BP 101/58 08/24/23 19:00 Pulse Ox 97 08/24/23 19:00 FiO2 Intake & Output 08/24/23 08/24/23 08/25/23 06:59 18:59 06:59 Intake Total 1180 35 Output Total 300 300 0 Balance -300 880 35 Intake: IV 280 35 Sodium Chloride 3%( 280 35 Hypertonic) 500 ml @ 35 mls/hr IV .[id number] ONE Rx #:[id number] Oral 900 Output: Urine 300 300 0 Other: # Voids 3 1 - Exam patient is awake, comfortable, no acute distress. answers questions appropriately. Examination of the heart S1 and S2 Examination of the lungs bilateral breath sounds are heard Abdomen is soft nontender Examination of lower extremities shows no edema [employer] exam grossly intact - Labs CBC & Chem 7: 08/24/23 04:33 08/24/23 18:26 Labs: Abnormal Lab Results - Last 24 Hours (Table) 08/23/23 08/24/23 08/24/23 Range/Units 17:00 04:33 04:33 RBC 3.78 L (4.40-5.60) X 10*6/uL Hgb 12.5 L (13.0-17.0) g/dL Hct 35.0 L (39.6-50.0) % MCH 33.1 H (27.0-32.0) pg RDW 16.4 H (11.5-14.5) % Plt Count 47 L (140-440) X 10*3/uL Lymphocytes # 0.38 L (0.90-5.00) X 10*3/uL Sodium 118 L* (137-145) mmol/L Chloride 94 L (98-107) mmol/L Carbon Dioxide 20 L (22-30) mmol/L BUN 37 H (9-20) mg/dL Creatinine 0.61 L (0.66-1.25) mg/dL POC Glucose (mg/dL) (70-110) mg/dL Calcium 7.8 L (8.4-10.2) mg/dL Total Bilirubin 1.9 H (0.2-1.3) mg/dL Total Protein 5.7 L (6.3-8.2) g/dL Albumin 2.3 L (3.5-5.0) g/dL Ur Random Sodium <20 L (40-220) mmol/L 08/24/23 08/24/23 08/24/23 Range/Units 10:27 14:49 18:26 RBC (4.40-5.60) X 10*6/uL Hgb (13.0-17.0) g/dL Hct (39.6-50.0) % MCH (27.0-32.0) pg RDW (11.5-14.5) % Plt Count (140-440) X 10*3/uL Lymphocytes # (0.90-5.00) X 10*3/uL Sodium 120 L 120 L (137-145) mmol/L Chloride (98-107) mmol/L Carbon Dioxide (22-30) mmol/L BUN (9-20) mg/dL Creatinine (0.66-1.25) mg/dL POC Glucose (mg/dL) 205 H (70-110) mg/dL Calcium (8.4-10.2) mg/dL Total Bilirubin (0.2-1.3) mg/dL Total Protein (6.3-8.2) g/dL Albumin (3.5-5.0) g/dL Ur Random Sodium (40-220) mmol/L Assessment and Plan Assessment: 1. Hyponatremia, secondary to SIADH with worsening of serum sodium with normal saline challenge. Urine osmolality at 522 and random urine sodium was 61. Status post Samsca x4 with no significant improvement. started on urea as well with no improvement. I prefer to hold back on Samsca given the underlying liver cirrhosis. Patient will need 3% saline. Repeat urine sodium is less than 20 due to underlying liver cirrhosis. 2. Liver cirrhosis with ascites status post paracentesis and removal of 4.8 L on 08/18/2023. 3. Umbilical hernia 4. Right renal cyst, benign appearing Plan: continue with urea Add 3% saline Add demeclocycline once 3% saline is discontinued. Continue with fluid restriction.
[2023-08-25] MEDS: SODIUM CHLORIDE 3%(HYPERTONIC) 500 ML IV ONE (00:34)
[2023-08-25 07:02] LABS: Anisocytosis Slight; HCT 41.6 % (39.0-53.0); HGB 13.3 gm/dL (13.0-17.5); MCH 31.4 pg (25.0-35.0); MCHC 31.9 g/dL (31.0-37.0); MCV 98.5 fL (80.0-100.0); Macrocytosis Slight; Mean Platelet Volume 7.9; RBC 4.22 m/uL (4.30-5.90); RDW 16.6 % (11.5-15.5); WBC 4.9 k/uL (3.8-10.6)
[2023-08-25 07:19] LABS: African American GFR (CKD) >90 (>60 ml/min/1.73 sqM); Anion Gap 5 mmol/L; Blood Urea Nitrogen 36 mg/dL (9-20); Calcium 8.2 mg/dL (8.4-10.2); Carbon Dioxide 19 mmol/L (22-30); Chloride 102 mmol/L (98-107); Glucose 93 mg/dL (74-99); Non-African American GFR(CKD) >90 (>60 ml/min/1.73 sqM); Potassium 5.2 mmol/L (3.5-5.1); Sodium 126 mmol/L (137-145)
[2023-08-25 07:33] LABS: Platelet Count 44 k/uL (150-450)
--- NOTE | 2023-08-25 10:01 | P.PN ---
Subjective Patient is seen in follow-up for hyponatremia. Sodium level 126 this morning. Patient has been receiving 3% overnight. Somewhat confused. Asking about when he can be discharged. Vital signs are stable. General: No acute distress. HEENT: Head exam is unremarkable. LUNGS: No audible rhonchi or wheezes. HEART: Rate and Rhythm are regular. ABDOMEN: Distention noted. Nontender. EXTREMITITES: No edema. Objective - Vital Signs Vital signs: Vital Signs Temp 98.0 F 08/25/23 06:00 Pulse 83 08/25/23 07:00 Resp 14 08/25/23 07:00 BP 110/68 08/25/23 07:00 Pulse Ox 95 08/25/23 07:00 FiO2 Intake & Output 08/24/23 08/25/23 08/25/23 18:59 06:59 18:59 Intake Total 1180 725 40 Output Total 300 375 0 Balance 880 350 40 Weight 87.3 kg Intake: IV 280 155 Sodium Chloride 3%( 280 155 Hypertonic) 500 ml @ 35 mls/hr IV .[id number] ONE Rx #:[id number] Intake, IV Titration 320 40 Amount Sodium Chloride 3%( 320 40 Hypertonic) 500 ml @ 40 mls/hr IV .[id number] ONE Rx #:[id number] Oral 900 250 Output: Urine 300 375 0 Other: # Voids 1 1 - Labs CBC & Chem 7: 08/25/23 06:03 08/25/23 06:03 Labs: Abnormal Lab Results - Last 24 Hours (Table) 08/24/23 08/24/23 08/24/23 Range/Units 04:33 10:27 14:49 RBC 3.78 L (4.40-5.60) X 10*6/uL Hgb 12.5 L (13.0-17.0) g/dL Hct 35.0 L (39.6-50.0) % MCH 33.1 H (27.0-32.0) pg RDW 16.4 H (11.5-14.5) % Plt Count 47 L (140-440) X 10*3/uL Lymphocytes # 0.38 L (0.90-5.00) X 10*3/uL Sodium 120 L (137-145) mmol/L Potassium (3.5-5.1) mmol/L Carbon Dioxide (22-30) mmol/L BUN (9-20) mg/dL Creatinine (0.66-1.25) mg/dL POC Glucose (mg/dL) 205 H (70-110) mg/dL Calcium (8.4-10.2) mg/dL 08/24/23 08/24/23 08/25/23 Range/Units 18:26 22:12 06:03 RBC (4.40-5.60) X 10*6/uL Hgb (13.0-17.0) g/dL Hct (39.6-50.0) % MCH (27.0-32.0) pg RDW (11.5-14.5) % Plt Count (140-440) X 10*3/uL Lymphocytes # (0.90-5.00) X 10*3/uL Sodium 120 L 121 L 124 L (137-145) mmol/L Potassium (3.5-5.1) mmol/L Carbon Dioxide (22-30) mmol/L BUN (9-20) mg/dL Creatinine (0.66-1.25) mg/dL POC Glucose (mg/dL) (70-110) mg/dL Calcium (8.4-10.2) mg/dL 08/25/23 08/25/23 Range/Units 06:03 06:03 RBC 4.22 L (4.40-5.60) X 10*6/uL Hgb (13.0-17.0) g/dL Hct (39.6-50.0) % MCH (27.0-32.0) pg RDW 16.6 H (11.5-14.5) % Plt Count 44 L (140-440) X 10*3/uL Lymphocytes # (0.90-5.00) X 10*3/uL Sodium 126 L (137-145) mmol/L Potassium 5.2 H (3.5-5.1) mmol/L Carbon Dioxide 19 L (22-30) mmol/L BUN 36 H (9-20) mg/dL Creatinine 0.56 L (0.66-1.25) mg/dL POC Glucose (mg/dL) (70-110) mg/dL Calcium 8.2 L (8.4-10.2) mg/dL Assessment and Plan Plan: Assessment: 1. Hyponatremia. Component of SIADH. Patient is also hypervolemic. Urine osmolality 522 and urine sodium 61. Repeat urine sodium less than 20 and urine osmolality 421. TSH 0.27. Status post Samsca this admission also on urea tabs. Currently on 3%. 2. Liver cirrhosis. 3. Ascites status post paracentesis August 18, 2023 with 4.8 L drained. Plan: Stop 3%. Repeat sodium level now. Hold off on urea at this time. If repeat sodium level higher, will start D5W.
--- NOTE | 2023-08-25 10:18 | US ---
EXAMINATION TYPE: US abdomen limited DATE OF EXAM: 08/25/2023 COMPARISON: NONE CLINICAL INDICATION: Male, 63 years old with history of assess ascites; ascites Technique: Grayscale imaging of the abdomen for ascites. FINDINGS: Small amount of Abdominal quadrants scanned, mild ascites noted IMPRESSION: Small ascites
--- NOTE | 2023-08-25 13:03 | P.PN ---
Subjective Progress Note Date: 08/25/23 HISTORY OF PRESENT ILLNESS: This is a 63 year old male with a previous medical history significant for hypertension and hypertensive cardiovascular disease, hyperlipidemia, history of pancreatitis in the past along with prior history of sepsis due to cellulitis about 4 year ago, history of chronic alcoholic hepatitis with alcoholic liver cirrhosis with elevated coags liver function test. Patient presented to the emergency department 2 days ago for fatigue, weakness, abdominal pain, and fever of 102 degrees at home. Chest XR negative for acute cardiopulmonary process. CT of the abdomen/pelvis reveals cirrhosis with port venous hypterention, moderate ascites and distal esophageal varices with splenomegaly at 14 cm, a 2 cm lession anterior right hepatic dome. Patient was placed on IV Rocephin. IR was consulted for therapeutic paracentesis. MRI of the abdomen has been ordered. The brain CT showed age-related atrophic changes plus chronic small vessel ischemia without acute intracranial process. Blood work completed in ED reveals a WBC of 10.7, hemoglobin of 13.2 and platelet count of 108, PT 15 with INR of 1.5, sodium 120, potassium 5.1, BUNs/creatinine of 25/0.74, CRP of 2.30; UA is completed and is unremarkable. 08/17: Patient is lying in bed and is very lethargic at this time. Awaiting MRI of the abdomen. Patient did have ultrasound-guided paracentesis today with approximately 4800 cc of clear straw-colored fluid. Pathology pending. Continue 2 g of Rocephin IV once daily. Will start Lovenox 40 mg subcu daily for DVT prophylaxis. Continue current medications and pain management. Continue 1500 cc fluid restriction as well as oral nutrition supplementation. Sodium is up from 120 to 122 today. Patient remains a full code. 08/18: MRI of the abdomen complete, pending result. Urine osmolality 522, random urine sodium 61, serum sodium 123. Nephrology has seen the patient. Continue 0.9 at 75 cc an hour. Continue Rocephin 2 g daily. And we will repeat the sodium level this afternoon. Continue 1500 cc fluid restriction as well as oral nutrition supplementation. 08/19: Patient is sitting up in a chair at this time, alert, oriented, and making conversation. MRI of the abdomen showed no definitive lesions identified in the area of concern; however, small lesions are not excluded. The MRI also showed hepatic cirrhosis with evidence of portal hypertension with splenomegaly and ascites. Sodium today is 122, fluids have been discontinued. Tolvaptan 15 mg p.o. has been administered. Patient remains on a 1500 cc fluid restriction. We will repeat CMP tomorrow. Continue PT and OT. Plan is for [facility] for rehabilitation when patient is discharged. 08/20: Patient is lying in bed with friend at bedside. He is alert and oriented. A second dose of tolvaptan 15 mg given today, as well as 1 g of sodium chloride. Patient remains on a 1500 cc fluid restriction. We will repeat CBC and CMP tomorrow. Continue PT and OT. 08/21: Patient is lying in bed, states he feels good today. Denies chest pain or shortness of breath, denies pain. Last sodium level is 120. Patient has had 3 doses of tolvaptan 15 mg. He has also had 1 g of sodium chloride yesterday and 2 g of sodium chloride today. Maintain 1500 cc fluid restriction. We will repeat labs tomorrow. Once his sodium is stable, plan is for discharged to [facility]. 08/22: Sodium remains at 120 despite multiple doses of tolvaptan and sodium chloride. Patient was started on urea yesterday but will likely need 3% saline if sodium level does not improve. Continue fluid restriction, we will repeat labs tomorrow morning. 08/23: Patient was moved to ICU this morning for close monitoring due to initiation of 3% saline at 35 cc an hour. Latest sodium level 118. We will recheck sodium level every 4 hours. Continue 1500 cc fluid restriction. Patient doing well aside from the hyponatremia, he has no complaints at this time. 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 No weight change. Positive for weakness, positive for fatigue. No daytime sleepiness. HEENT: No headache. No blurred vision or double vision, no loss of vision. No loss of Hearing, no ringing in the ears, no dizziness. No nasal drainage or congestion. No epistaxis. No sore throat. Lungs: No shortness of breath, no cough, no sputum production. No wheezing. Reports dyspnea with activity. Cardiovascular: No chest pain, positive for lower extremity edema. No palpitations. No paroxysmal nocturnal dyspnea. No orthopnea. No ligh theadedness or dizziness. No syncopal episodes. Abdominal: Reports abdominal pain and distention. No nausea, vomiting, diarrhea. No constipation. No bloody or tarry stools reports loss of appetite. Genitourinary: No dysuria, increased frequency, urgency. No urinary retention. Musculoskeletal: No myalgias. positive for muscle weakness, no gait dysfunction, no frequent falls. No back pain. No neck pain. Integumentary: No wounds, no lesions. No rash or pruritus. No unusual bruising. No change in hair or nails. Neurologic: No aphasia. No facial droop. No change in mentation. No head injury. No headache. No paralysis. No paresthesia. Psychiatric: No depression. No anxiety. No mood swings. Endocrine: No abnormal blood sugars. No weight change. PHYSICAL EXAMINATION: General: 63-year-old male sitting up in bed in no apparent distress. HEENT: Head is atraumatic, normocephalic, pupils were equal round reactive to light and recommendation, extraocular muscle movement were intact, sclera are deeply icteric, conjunctivae were pale, mucous membranes of the mouth are maurice ewhat dry. Neck: Supple, no JVP, normal carotid upstroke bilaterally, no lymphadenopathy. Chest: Decreased breath sounds at the bases, no expiratory wheezes, no chest wall tenderness, no intercostal retractions. Heart: First heart sound is normal, second heart sounds normal there is BLANCA 2/6 located at the left sternal border Abdomen: Soft, distended, moderate ascites, no tenderness. Positive bowel sounds. Extremities: No edema, no calf tenderness DP +2 bilaterally. Neurologic examination: Patient is awake and oriented X 2, cranial nerves II-12 appear grossly intact, muscle power were 4 out of 5 in upper extremities and 4 out of 5 in bilateral lower extremities, deep tendon reflexes normal b ilaterally. ASSESSMENT AND PLAN: 1. Acute on chronic alcohol hepatitis with alcoholic liver cirrhosis and ascites. Monitor patient's input and output and daily weight. MRI of the abdomen shows no definitive lesions. Serum sodium 124 before that 126, monitor the patient's sodium very closely, hold off hypertonic saline for now. Patient has been followed by nephrology, hold off Aldactone for now. 2. Hyponatremia, secondary to SIADH status post 4 doses of tolvaptan 15 mg, and hypotonic saline along with urea tablets, patient was taken off urea tablets, and hypertonic sodium and then we will monitor his serum sodium very closely. Nephrology is following. 3. Hypertension and hypertensive cardiovascular disease. Currently normotensive patient has been off his antihypertensive medications. 4. GERD. Continue patient on Protonix 40 mg orally once every day. 5. DVT prophylaxis. Bilateral knee-high TAMI hose. Lovenox 40 mg subcutaneous daily. 6. Patient is a full code. 7. Discharge plan is to rehab but the patient prefers to go back home. 8. Physical therapy evaluation. Objective - Vital Signs Vital signs: Vital Signs Temp 97.5 F L 08/25/23 08:00 Pulse 85 08/25/23 12:00 Resp 14 08/25/23 12:00 BP 104/62 08/25/23 12:00 Pulse Ox 95 08/25/23 11:00 FiO2 Intake & Output 08/24/23 08/25/23 08/25/23 18:59 06:59 18:59 Intake Total 1180 725 560 Output Total 300 375 250 Balance 880 350 310 Weight 87.3 kg Intake: IV 280 155 Sodium Chloride 3%( 280 155 Hypertonic) 500 ml @ 35 mls/hr IV .[id number] ONE Rx #:[id number] Intake, IV Titration 320 80 Amount Sodium Chloride 3%( 320 80 Hypertonic) 500 ml @ 40 mls/hr IV .[id number] ONE Rx #:[id number] Oral 900 250 480 Output: Urine 300 375 250 Other: Voiding Method Urinal # Voids 1 1 - Labs CBC & Chem 7: 08/25/23 06:03 08/25/23 06:03 Labs: Abnormal Lab Results - Last 24 Hours (Table) 08/24/23 08/24/23 08/24/23 Range/Units 14:49 18:26 22:12 RBC (4.30-5.90) m/uL RDW (11.5-15.5) % Plt Count (150-450) k/uL Sodium 120 L 120 L 121 L (137-145) mmol/L Potassium (3.5-5.1) mmol/L Carbon Dioxide (22-30) mmol/L BUN (9-20) mg/dL Creatinine (0.66-1.25) mg/dL Calcium (8.4-10.2) mg/dL 08/25/23 08/25/23 08/25/23 Range/Units 06:03 06:03 06:03 RBC 4.22 L (4.30-5.90) m/uL RDW 16.6 H (11.5-15.5) % Plt Count 44 L (150-450) k/uL Sodium 124 L 126 L (137-145) mmol/L Potassium 5.2 H (3.5-5.1) mmol/L Carbon Dioxide 19 L (22-30) mmol/L BUN 36 H (9-20) mg/dL Creatinine 0.56 L (0.66-1.25) mg/dL Calcium 8.2 L (8.4-10.2) mg/dL
[2023-08-25 13:15] LABS: ALT 33 U/L (4-49); AST 56 U/L (17-59); African American GFR (CKD) >90 (>60 ml/min/1.73 sqM); Albumin 2.7 g/dL (3.5-5.0); Alkaline Phosphatase 87 U/L (38-126); Anion Gap 5 mmol/L; Blood Urea Nitrogen 31 mg/dL (9-20); Carbon Dioxide 18 mmol/L (22-30); Chloride 101 mmol/L (98-107); Glucose 108 mg/dL (74-99); Non-African American GFR(CKD) >90 (>60 ml/min/1.73 sqM); Potassium 5.6 mmol/L (3.5-5.1); Sodium 124 mmol/L (137-145); Total Bilirubin 2.2 mg/dL (0.2-1.3); Total Protein 6.5 g/dL (6.3-8.2)
[2023-08-25] MEDS: LACTULOSE 20 GM/30 ML CUP PO SCH ×2 (13:30→20:36)
--- NOTE | 2023-08-25 14:17 | P.PN ---
Subjective Progress Note Date: 08/25/23 08/25/2023, the patient is being seen for a follow-up. In the intensive care unit. The patient is awake and alert and communicating. The patient is currently on room air oxygen with a pulse ox of 95%. The patient remains hemodynamically stable. Mental status continues to improve. Sodium level is improved and is currently at 124. Patient was taken off the hypertonic saline. Potassium is at 5.6, bicarb level is at 18 with a BUN of 31 creatinine of 0.5. Will discuss at 4.9 with hemoglobin 13.3 and a platelet count of 44. The patient is chronic liver disease and liver cirrhosis. Patient has not had any bowel movements. Will start the patient on lactulose in addition. Ammonia level needs to be also checked. His serum albumin is at 2.7 with a total protein of 6.5. LFTs are essentially within normal limits. Calcium level is at 8.0. Noted the patient's sodium level was as low as 118 and gradually improved. Patient was taken off the hypertonic saline solution. Otherwise, no other si gnificant events. No focal neurological deficits. He does have some ascites on examination along with an umbilical hernia that has been noted. Objective - Vital Signs Vital signs: Vital Signs Temp 97.5 F L 08/25/23 08:00 Pulse 83 08/25/23 10:00 Resp 15 08/25/23 10:00 BP 93/44 08/25/23 10:00 Pulse Ox 96 08/25/23 10:00 FiO2 Intake & Output 08/24/23 08/25/23 08/25/23 18:59 06:59 18:59 Intake Total 1180 725 80 Output Total 300 375 0 Balance 880 350 80 Weight 87.3 kg Intake: IV 280 155 Sodium Chloride 3%( 280 155 Hypertonic) 500 ml @ 35 mls/hr IV .[id number] ONE Rx #:[id number] Intake, IV Titration 320 80 Amount Sodium Chloride 3%( 320 80 Hypertonic) 500 ml @ 40 mls/hr IV .[id number] ONE Rx #:[id number] Oral 900 250 Output: Urine 300 375 0 Other: Voiding Method Urinal # Voids 1 1 - Exam General: 63-year-old male sitting up in bed in no apparent distress. HEENT: Head is atraumatic, normocephalic, pupils were equal round reactive to light and recommendation, extraocular muscle movement were intact, sclera are deeply icteric, conjunctivae were pale, mucous membranes of the mouth are somewhat dry. Neck: Supple, no JVP, normal carotid upstroke bilaterally, no lymphadenopathy. Chest: Decreased breath sounds at the bases, no expiratory wheezes, no chest wall tenderness, no intercostal retractions. Heart: First heart sound is normal, second heart sounds normal there is BLANCA 2/6 located at the left sternal border Abdomen: Soft, distended, moderate ascites, no tenderness. Positive bowel sounds. Patient has an umbilical hernia along with evidence of ascites with fluid wave and shifting dullness. Extremities: No edema, no calf tenderness DP +2 bilaterally. Neurologic examination: Patient is awake and oriented X 2, cranial nerves II-12 appear grossly intact, muscle power were 4 out of 5 in upper extremities and 4 out of 5 in bilateral lower extremities, deep tendon reflexes normal bilaterally. - Labs CBC & Chem 7: 08/25/23 06:03 08/25/23 12:09 Labs: Abnormal Lab Results - Last 24 Hours (Table) 08/24/23 08/24/23 08/24/23 Range/Units 14:49 18:26 22:12 RBC (4.30-5.90) m/uL RDW (11.5-15.5) % Plt Count (150-450) k/uL Sodium 120 L 120 L 121 L (137-145) mmol/L Potassium (3.5-5.1) mmol/L Carbon Dioxide (22-30) mmol/L BUN (9-20) mg/dL Creatinine (0.66-1.25) mg/dL Calcium (8.4-10.2) mg/dL 08/25/23 08/25/23 08/25/23 Range/Units 06:03 06:03 06:03 RBC 4.22 L (4.30-5.90) m/uL RDW 16.6 H (11.5-15.5) % Plt Count 44 L (150-450) k/uL Sodium 124 L 126 L (137-145) mmol/L Potassium 5.2 H (3.5-5.1) mmol/L Carbon Dioxide 19 L (22-30) mmol/L BUN 36 H (9-20) mg/dL Creatinine 0.56 L (0.66-1.25) mg/dL Calcium 8.2 L (8.4-10.2) mg/dL Assessment and Plan Plan: Severe hyponatremia, the patient's sodium level dropped to as low as 119 along with altered mental status. The patient was started on 3% hypertonic saline and the current sodium level is 126 126. As such, the hypertonic saline has been discontinued and the patient is currently on nothing IV fluids at KVO. He is on room air oxygen. Mental status is slightly improved compared to yesterday. Hypovolemic hyponatremia, secondary to diuretics. History of liver cirrhosis with ascites, S/P high-volume paracentesis abdominous, August 18, 2023. Hypertension. History of pneumonia. History of splenomegaly. History of pancreatitis. Plan: Monitor sodium level IV fluids to KVO Mental status is improving Check ammonia level Start the patient on lactulose 10 g on a daily basis May transfer to the medical floor. Nephrology on the case regarding hyponatremia.
[2023-08-25] MEDS: FUROSEMIDE 10 MG/ML 2 ML VIAL IV ONE (14:55)
[2023-08-25] MEDS: SODIUM ZIRCONIUM CYCLOSILICATE 10 GM PACKET PO ONE ×2 (15:28→20:12)
[2023-08-25 18:13] LABS: Anion Gap 6 mmol/L; Blood Urea Nitrogen 28 mg/dL (9-20); Carbon Dioxide 15 mmol/L (22-30); Chloride 103 mmol/L (98-107); Glucose 111 mg/dL (74-99); Potassium 5.5 mmol/L (3.5-5.1); Sodium 124 mmol/L (137-145)
[2023-08-25 18:14] LABS: African American GFR (CKD) >90 (>60 ml/min/1.73 sqM); Calcium 7.8 mg/dL (8.4-10.2); Non-African American GFR(CKD) >90 (>60 ml/min/1.73 sqM)
[2023-08-25] MEDS: FUROSEMIDE 10 MG/ML 4 ML VIAL IV STA (20:11)
[2023-08-25] MEDS: SODIUM BICARB 8.4% 50 ML SYR (1 MEQ/ML) IV STA (20:12)
[2023-08-26] MEDS ORDERED: ZINC OXIDE PASTE (Z-GUARD) 1 APPLIC TOPICAL PRN (02:45)
[2023-08-26 06:27] LABS: Anisocytosis Slight; Basophils % (A) 0 %; Eosinophils # (A) 0.1 k/uL (0-0.7); Eosinophils % (A) 1 %; HCT 37.2 % (39.0-53.0); HGB 12.4 gm/dL (13.0-17.5); Lymphocytes # (A) 0.3 k/uL (1.0-4.8); Lymphocytes % (A) 6 %; MCHC 33.3 g/dL (31.0-37.0); MCV 96.1 fL (80.0-100.0); Macrocytosis Slight; Mean Platelet Volume 7.6; Monocytes # (A) 0.6 k/uL (0-1.0); Monocytes % (A) 12 %; Neutrophils # (A) 4.2 k/uL (1.3-7.7); Neutrophils % (A) 78 %; Platelet Count 42 k/uL (150-450); RBC 3.87 m/uL (4.30-5.90); RDW 16.5 % (11.5-15.5); WBC 5.4 k/uL (3.8-10.6)
[2023-08-26 08:56] LABS: ALT 31 U/L (4-49); AST 39 U/L (17-59); African American GFR (CKD) >90 (>60 ml/min/1.73 sqM); Albumin 2.4 g/dL (3.5-5.0); Alkaline Phosphatase 87 U/L (38-126); Anion Gap 3 mmol/L; Blood Urea Nitrogen 35 mg/dL (9-20); Calcium 7.7 mg/dL (8.4-10.2); Carbon Dioxide 25 mmol/L (22-30); Chloride 99 mmol/L (98-107); Glucose 104 mg/dL (74-99); Non-African American GFR(CKD) >90 (>60 ml/min/1.73 sqM); Potassium 3.6 mmol/L (3.5-5.1); Sodium 127 mmol/L (137-145); Total Bilirubin 2.3 mg/dL (0.2-1.3)
[2023-08-26] MEDS ORDERED: LACTULOSE 20 GM/30 ML CUP PO SCH (09:00)
[2023-08-26] MEDS: FUROSEMIDE 10 MG/ML 4 ML VIAL IV STA (11:44)
[2023-08-26] MEDS: POTASSIUM BICARBONATE/CIT AC 20 MEQ TABLET.EFF PO SCH (11:44)
--- NOTE | 2023-08-26 11:57 | P.PN ---
Subjective Patient is seen in follow-up for hyponatremia. Sodium level 127 this morning. Received 2 doses of IV Lasix yesterday. Urine output better post IV Lasix. Mentation better. Vital signs are stable. General: No acute distress. HEENT: Head exam is unremarkable. LUNGS: No audible rhonchi or wheezes. HEART: Rate and Rhythm are regular. ABDOMEN: Distention noted. Nontender. EXTREMITITES: Trace edema. Objective - Vital Signs Vital signs: Vital Signs Temp 97.7 F 08/26/23 08:00 Pulse 88 08/26/23 10:00 Resp 16 08/26/23 10:00 BP 110/66 08/26/23 10:00 Pulse Ox 100 08/26/23 10:00 FiO2 Intake & Output 08/25/23 08/26/23 08/26/23 18:59 06:59 18:59 Intake Total 560 350 340 Output Total 920 1165 95 Balance -360 -815 245 Weight 90.9 kg Intake: Intake, IV Titration 80 Amount Sodium Chloride 3%( 80 Hypertonic) 500 ml @ 40 mls/hr IV .[id number] ONE Rx #:[id number] Oral 480 350 340 Output: Urine 920 1165 95 Uretheral (Cornell) 150 Other: Voiding Method Indwelling Catheter Indwelling Catheter Indwelling Catheter # Bowel Movements 1 - Labs CBC & Chem 7: 08/26/23 06:12 08/26/23 08:26 Labs: Abnormal Lab Results - Last 24 Hours (Table) 08/25/23 08/25/23 08/25/23 Range/Units 12:09 12:09 17:35 RBC (4.30-5.90) m/uL Hgb (13.0-17.5) gm/dL Hct (39.0-53.0) % RDW (11.5-15.5) % Plt Count (150-450) k/uL Lymphocytes # (1.0-4.8) k/uL Sodium 124 L 124 L (137-145) mmol/L Potassium 5.6 H 5.5 H (3.5-5.1) mmol/L Carbon Dioxide 18 L 15 L (22-30) mmol/L BUN 31 H 28 H (9-20) mg/dL Creatinine 0.50 L 0.52 L (0.66-1.25) mg/dL Glucose 108 H 111 H (74-99) mg/dL Calcium 8.0 L 7.8 L (8.4-10.2) mg/dL Total Bilirubin 2.2 H (0.2-1.3) mg/dL Ammonia 73 H (<30) umol/L Total Protein (6.3-8.2) g/dL Albumin 2.7 L (3.5-5.0) g/dL 08/26/23 08/26/23 Range/Units 06:12 08:26 RBC 3.87 L (4.30-5.90) m/uL Hgb 12.4 L (13.0-17.5) gm/dL Hct 37.2 L (39.0-53.0) % RDW 16.5 H (11.5-15.5) % Plt Count 42 L (150-450) k/uL Lymphocytes # 0.3 L (1.0-4.8) k/uL Sodium 127 L (137-145) mmol/L Potassium (3.5-5.1) mmol/L Carbon Dioxide (22-30) mmol/L BUN 35 H (9-20) mg/dL Creatinine 0.65 L (0.66-1.25) mg/dL Glucose 104 H (74-99) mg/dL Calcium 7.7 L (8.4-10.2) mg/dL Total Bilirubin 2.3 H (0.2-1.3) mg/dL Ammonia (<30) umol/L Total Protein 6.0 L (6.3-8.2) g/dL Albumin 2.4 L (3.5-5.0) g/dL Assessment and Plan Plan: Assessment: 1. Hyponatremia. Component of SIADH. Patient is also hypervolemic. Urine osmolality 522 and urine sodium 61. Repeat urine sodium less than 20 and urine osmolality 421. TSH 0.27. Status post Samsca this admission; also on urea tabs. Remains off 3%. 2. Liver cirrhosis. 3. Ascites status post paracentesis August 18, 2023 with 4.8 L drained. 4. Hyperkalemia due to acidosis. Status post Lokelma. Potassium on the lower side today and is now being replaced. Plan: Lasix 40 mg IV once now. Maintain urea. Maintain fluid restriction. Encouraged oral intake.
--- NOTE | 2023-08-26 12:47 | P.PN ---
Subjective Progress Note Date: 08/26/23 HISTORY OF PRESENT ILLNESS: This is a 63 year old male with a previous medical history significant for hypertension and hypertensive cardiovascular disease, hyperlipidemia, history of pancreatitis in the past along with prior history of sepsis due to cellulitis about 4 year ago, history of chronic alcoholic hepatitis with alcoholic liver cirrhosis with elevated coags liver function test. Patient presented to the emergency department 2 days ago for fatigue, weakness, abdominal pain, and fever of 102 degrees at home. Chest XR negative for acute cardiopulmonary process. CT of the abdomen/pelvis reveals cirrhosis with port venous hypterention, moderate ascites and distal esophageal varices with splenomegaly at 14 cm, a 2 cm lession anterior right hepatic dome. Patient was placed on IV Rocephin. IR was consulted for therapeutic paracentesis. MRI of the abdomen has been ordered. The brain CT showed age-related atrophic changes plus chronic small vessel ischemia without acute intracranial process. Blood work completed in ED reveals a WBC of 10.7, hemoglobin of 13.2 and platelet count of 108, PT 15 with INR of 1.5, sodium 120, potassium 5.1, BUNs/creatinine of 25/0.74, CRP of 2.30; UA is completed and is unremarkable. 08/17: Patient is lying in bed and is very lethargic at this time. Awaiting MRI of the abdomen. Patient did have ultrasound-guided paracentesis today with approximately 4800 cc of clear straw-colored fluid. Pathology pending. Continue 2 g of Rocephin IV once daily. Will start Lovenox 40 mg subcu daily for DVT prophylaxis. Continue current medications and pain management. Continue 1500 cc fluid restriction as well as oral nutrition supplementation. Sodium is up from 120 to 122 today. Patient remains a full code. 08/18: MRI of the abdomen complete, pending result. Urine osmolality 522, random urine sodium 61, serum sodium 123. Nephrology has seen the patient. Continue 0.9 at 75 cc an hour. Continue Rocephin 2 g daily. And we will repeat the sodium level this afternoon. Continue 1500 cc fluid restriction as well as oral nutrition supplementation. 08/19: Patient is sitting up in a chair at this time, alert, oriented, and making conversation. MRI of the abdomen showed no definitive lesions identified in the area of concern; however, small lesions are not excluded. The MRI also showed hepatic cirrhosis with evidence of portal hypertension with splenomegaly and ascites. Sodium today is 122, fluids have been discontinued. Tolvaptan 15 mg p.o. has been administered. Patient remains on a 1500 cc fluid restriction. We will repeat CMP tomorrow. Continue PT and OT. Plan is for [facility] for rehabilitation when patient is discharged. 08/20: Patient is lying in bed with friend at bedside. He is alert and oriented. A second dose of tolvaptan 15 mg given today, as well as 1 g of sodium chloride. Patient remains on a 1500 cc fluid restriction. We will repeat CBC and CMP tomorrow. Continue PT and OT. 08/21: Patient is lying in bed, states he feels good today. Denies chest pain or shortness of breath, denies pain. Last sodium level is 120. Patient has had 3 doses of tolvaptan 15 mg. He has also had 1 g of sodium chloride yesterday and 2 g of sodium chloride today. Maintain 1500 cc fluid restriction. We will repeat labs tomorrow. Once his sodium is stable, plan is for discharged to [facility]. 08/22: Sodium remains at 120 despite multiple doses of tolvaptan and sodium chloride. Patient was started on urea yesterday but will likely need 3% saline if sodium level does not improve. Continue fluid restriction, we will repeat labs tomorrow morning. 08/23: Patient was moved to ICU this morning for close monitoring due to initiation of 3% saline at 35 cc an hour. Latest sodium level 118. We will recheck sodium level every 4 hours. Continue 1500 cc fluid restriction. Patient doing well aside from the hyponatremia, he has no complaints at this time. 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 along with liver cirrhosis which makes it hard to manage between hypervolemia and SIADH euvolemia 08/25: Patient is sitting up in bed he is more awake and more alert today, he is less confused as yesterday, his ammonia level is down, he did receive couple doses of lactulose yesterday he did receive 1 dose of Lasix today as well, his sodium is up 127, we will continue with the same treatment plan, continue fluid restriction, we will discontinue Cornell catheter this evening, monitor the patient input and output and daily weight, physical therapy evaluation for the patient possibly going back to home versus subacute rehabilitation in the next 24 hours. REVIEW OF SYSTEMS: Constitutional: Positive fever, no chills, no night sweats. No weight change. Positive for weakness, positive for fatigue. No daytime sleepiness. HEENT: No headache. No blurred vision or double vision, no loss of vision. No loss of Hearing, no ringing in the ears, no dizziness. No nasal drainage or congestion. No epistaxis. No sore throat. Lungs: No shortness of breath, no cough, no sputum production. No wheezing. Reports dyspnea with activity. Cardiovascular: No chest pain, positive for lower extremity edema. No palpitations. No paroxysmal nocturnal dyspnea. No orthopnea. No lightheadedness or dizziness. No syncopal episodes. Abdominal: Reports abdominal pain and distention. No nausea, vomiting, diarrhea. No constipation. No bloody or tarry stools reports loss of appetite. Genitourinary: No dysuria, increased frequency, urgency. No urinary retention. Musculoskeletal: No myalgias. positive for muscle weakness, no gait dysfunction, no frequent falls. No back pain. No neck pain. Integumentary: No wounds, no lesions. No rash or pruritus. No unusual bruising. No change in hair or nails. Neurologic: No aphasia. No facial droop. No change in mentation. No head injury. No headache. No paralysis. No paresthesia. Psychiatric: No depression. No anxiety. No mood swings. Endocrine: No abnormal blood sugars. No weight change. PHYSICAL EXAMINATION: General: 63-year-old male sitting up in bed in no apparent distress. HEENT: Head is atraumatic, normocephalic, pupils were equal round reactive to light and recommendation, extraocular muscle movement were intact, sclera are deeply icteric, conjunctivae were pale, mucous membranes of the mouth are somewhat dry. Neck: Supple, no JVP, normal carotid upstroke bilaterally, no lymphadenopathy. Chest: Decreased breath sounds at the bases, no expiratory wheezes, no chest wall tenderness, no intercostal retractions. Heart: First heart sound is normal, second heart sounds normal there is BLANCA 2/6 located at the left sternal border Abdomen: Soft, distended, moderate ascites, no tenderness. Positive bowel sounds. Extremities: No edema, no calf tenderness DP +2 bilaterally. Neurologic examination: Patient is awake and oriented X 2, cranial nerves II-12 appear grossly intact, muscle power were 4 out of 5 in upper extremities and 4 out of 5 in bilateral lower extremities, deep tendon reflexes normal bilaterally. ASSESSMENT AND PLAN: 1. Acute on chronic alcohol hepatitis with alcoholic liver cirrhosis and ascites. Monitor patient's input and output and daily weight. MRI of the abdomen shows no definitive lesions. Serum sodium 127 before that 124, monitor the patient's sodium very closely, patient did response to Lasix 40 mg IV push yesterday and today, repeat sodium tomorrow morning, if his sodium is better, patient can be started back on his Lasix and spironolactone and he can be discharged either to subacute rehabilitation or his assisted living facility [facility]. 2. Hyponatremia, secondary to SIADH and there is a component of hypervolemia. Status post 4 doses of tolvaptan 15 mg, and hypotonic saline along with urea tablets, patient was taken off urea tablets, and hypertonic sodium patient did receive Lasix yesterday and and today 40 mg IV push times 1 repeat sodium tomorrow morning. Continue fluid restriction. 3. Hypertension and hypertensive cardiovascular disease. Currently normotensive patient has been off his antihypertensive medications. 4. Orthostatic hypotension. Continue patient on midodrine 5 mg orally 3 times every day, monitor the patient blood pressure very closely. 5. GERD. Continue patient on Protonix 40 mg orally once every day. 6. DVT prophylaxis. Bilateral knee-high TAMI hose. Lovenox 40 mg subcutaneous daily. 7. Patient is a full code. 8. Patient will be seen in consultation by physical therapy as well as Occupational Therapy, likely the patient will need to go for subacute rehabilitation however he prefers to go back home. Objective - Vital Signs Vital signs: Vital Signs Temp 97.7 F 08/26/23 08:00 Pulse 90 08/26/23 12:00 Resp 17 08/26/23 12:00 BP 90/55 08/26/23 12:00 Pulse Ox 99 08/26/23 12:00 FiO2 Intake & Output 08/25/23 08/26/2308/25/24 18:59 06:59 18:59 Intake Total 560 350 580 Output Total 920 1165 105 Balance -360 -815 475 Weight 90.9 kg Intake: Intake, IV Titration 80 Amount Sodium Chloride 3%( 80 Hypertonic) 500 ml @ 40 mls/hr IV .[id number] ONE Rx #:[id number] Oral 480 350 580 Output: Urine 920 1165 105 Uretheral (Cornell) 150 Other: Voiding Method Indwelling Catheter Indwelling Catheter Indwelling Catheter # Bowel Movements 1 - Labs CBC & Chem 7: 08/26/23 06:12 08/26/23 08:26 Labs: Abnormal Lab Results - Last 24 Hours (Table) 08/25/23 08/25/23 08/25/23 Range/Units 12:09 12:09 17:35 RBC (4.30-5.90) m/uL Hgb (13.0-17.5) gm/dL Hct (39.0-53.0) % RDW (11.5-15.5) % Plt Count (150-450) k/uL Lymphocytes # (1.0-4.8) k/uL Sodium 124 L 124 L (137-145) mmol/L Potassium 5.6 H 5.5 H (3.5-5.1) mmol/L Carbon Dioxide 18 L 15 L (22-30) mmol/L BUN 31 H 28 H (9-20) mg/dL Creatinine 0.50 L 0.52 L (0.66-1.25) mg/dL Glucose 108 H 111 H (74-99) mg/dL Calcium 8.0 L 7.8 L (8.4-10.2) mg/dL Total Bilirubin 2.2 H (0.2-1.3) mg/dL Ammonia 73 H (<30) umol/L Total Protein (6.3-8.2) g/dL Albumin 2.7 L (3.5-5.0) g/dL 08/26/23 08/26/23 Range/Units 06:12 08:26 RBC 3.87 L (4.30-5.90) m/uL Hgb 12.4 L (13.0-17.5) gm/dL Hct 37.2 L (39.0-53.0) % RDW 16.5 H (11.5-15.5) % Plt Count 42 L (150-450) k/uL Lymphocytes # 0.3 L (1.0-4.8) k/uL Sodium 127 L (137-145) mmol/L Potassium (3.5-5.1) mmol/L Carbon Dioxide (22-30) mmol/L BUN 35 H (9-20) mg/dL Creatinine 0.65 L (0.66-1.25) mg/dL Glucose 104 H (74-99) mg/dL Calcium 7.7 L (8.4-10.2) mg/dL Total Bilirubin 2.3 H (0.2-1.3) mg/dL Ammonia (<30) umol/L Total Protein 6.0 L (6.3-8.2) g/dL Albumin 2.4 L (3.5-5.0) g/dL
--- NOTE | 2023-08-26 15:06 | CDI ---
Documentation Clarification Form Date: 08/26/2023 From: Zaida Bledsoe Phone: [phone] Admit Date: 08/16/2023 11:47:00 PM Patient Name: Fred Kim Visit Number: [id number] Discharge Date: ATTENTION: The Clinical Documentation Specialists (CDI) and [facility] Coding Staff appreciate your assistance in clarifying documentation. Please respond to the clarification below the line at the bottom and electronically sign. The CDI & [facility] Coding staff will review the response and follow-up if needed. Please note: Queries are made part of the Legal Health Record. If you have any questions, please contact the author of this message via ITS. Dr. Reggie Cho: Your patient has the documented symptom of Altered Mental Status in the Critical Care progress note 08/24. Additional clarification regarding the etiology/cause of this symptom is requested. History/Risk Factors: 63-year-old male with history of HTN, Liver cirrhosis who presents with fatigue and weakness and generalized abdominal pain, found to have hyponatremia/SIADH Clinical Indicators: 08/24 Critical Care PN, Plan: "Severe hyponatremia, the patient's sodium level dropped to as low as 119 along with altered mental status." 08/25 IM PN: "08/25: Patient is sitting up in bed he is more awake and more alert today, he is less confused as yesterday, his ammonia level is down." 08/19, 08/24, 08/25 Ammonia: 22, 73, 27 08/15-08/25 Sodium range: 118-127 (118 on 08/23 and 127 on 08/25) 08/23-08/25 BUN: 37, 36, 31, 28, 35 08/17 CT Brain, Impression: "1. Age related atrophic and chronic small vessel ischemic change without acute intracranial process seen at this time." Treatment: Lactulose 10gram PO TID start 08/24 Sodium Chloride 3% at 35cc/hour- 500cc once 08/23, then 40cc/hour 08/24 Urea 7.5gram PO BID 08/21-08/22 Please clarify the etiology of the symptom of Altered Mental Status: [X ] Metabolic Encephalopathy due to elevated ammonia level, abnormal sodium levels, abnormal BUN levels [ ] Other condition (please specify) [ ] Unable to determine MTDD
[2023-08-26 15:23] VITALS: BMI 27.9
--- NOTE | 2023-08-26 15:28 | P.PN ---
Subjective Progress Note Date: 08/26/23 08/25/2023, the patient is being seen for a follow-up. In the intensive care unit. The patient is awake and alert and communicating. The patient is currently on room air oxygen with a pulse ox of 95%. The patient remains hemodynamically stable. Mental status continues to improve. Sodium level is improved and is currently at 124. Patient was taken off the hypertonic saline. Potassium is at 5.6, bicarb level is at 18 with a BUN of 31 creatinine of 0.5. Will discuss at 4.9 with hemoglobin 13.3 and a platelet count of 44. The patient is chronic liver disease and liver cirrhosis. Patient has not had any bowel movements. Will start the patient on lactulose in addition. Ammonia level needs to be also checked. His serum albumin is at 2.7 with a total protein of 6.5. LFTs are essentially within normal limits. Calcium level is at 8.0. Noted the patient's sodium level was as low as 118 and gradually improved. Patient was taken off the hypertonic saline solution. Otherwise, no other si gnificant events. No focal neurological deficits. He does have some ascites on examination along with an umbilical hernia that has been noted. On today's evaluation of 08/26/2023, patient is doing well and he is alert and awake. No significant events overnight. The patient has a sodium level of 127, BUN is at 35 with a creatinine of 0.6. WBC count of 5.4 with a hemoglobin 12.4. Ammonia level was 73 and the patient was started on lactulose and repeat level is down to 27. No signs of any significant encephalopathy at this point. No fever. No chills. Hemodynamically stable. Remains on Lovenox for DVT prophylaxis. Remains on Protonix. The patient remains on room air oxygen. No other active issues for now. Objective - Vital Signs Vital signs: Vital Signs Temp 97.7 F 08/26/23 08:00 Pulse 88 08/26/23 10:00 Resp 16 08/26/23 10:00 BP 110/66 08/26/23 10:00 Pulse Ox 100 08/26/23 10:00 FiO2 Intake & Output 08/25/23 08/26/23 08/26/23 18:59 06:59 18:59 Intake Total 560 350 340 Output Total 920 1165 95 Balance -360 -815 245 Weight 90.9 kg Intake: Intake, IV Titration 80 Amount Sodium Chloride 3%( 80 Hypertonic) 500 ml @ 40 mls/hr IV .[id number] ONE Rx #:[id number] Oral 480 350 340 Output: Urine 920 1165 95 Uretheral (Cornell) 150 Other: Voiding Method Indwelling Catheter Indwelling Catheter Indwelling Catheter # Bowel Movements 1 - Exam General: 63-year-old male sitting up in bed in no apparent distress. HEENT: Head is atraumatic, normocephalic, pupils were equal round reactive to light and recommendation, extraocular muscle movement were intact, sclera are deeply icteric, conjunctivae were pale, mucous membranes of the mouth are so mewhat dry. Neck: Supple, no JVP, normal carotid upstroke bilaterally, no lymphadenopathy. Chest: Decreased breath sounds at the bases, no expiratory wheezes, no chest wall tenderness, no intercostal retractions. Heart: First heart sound is normal, second heart sounds normal there is BLANCA 2/6 located at the left sternal border Abdomen: Soft, distended, moderate ascites, no tenderness. Positive bowel sounds. Patient has an umbilical hernia along with evidence of ascites with fluid wave and shifting dullness. Extremities: No edema, no calf tenderness DP +2 bilaterally. Neurologic examination: Patient is awake and oriented X 2, cranial nerves II-12 appear grossly intact, muscle power were 4 out of 5 in upper extremities and 4 out of 5 in bilateral lower extremities, deep tendon reflexes normal bilaterally. - Labs CBC & Chem 7: 08/26/23 06:12 08/26/23 08:26 Labs: Abnormal Lab Results - Last 24 Hours (Table) 08/25/23 08/25/23 08/25/23 Range/Units 12:09 12:09 17:35 RBC (4.30-5.90) m/uL Hgb (13.0-17.5) gm/dL Hct (39.0-53.0) % RDW (11.5-15.5) % Plt Count (150-450) k/uL Lymphocytes # (1.0-4.8) k/uL Sodium 124 L 124 L (137-145) mmol/L Potassium 5.6 H 5.5 H (3.5-5.1) mmol/L Carbon Dioxide 18 L 15 L (22-30) mmol/L BUN 31 H 28 H (9-20) mg/dL Creatinine 0.50 L 0.52 L (0.66-1.25) mg/dL Glucose 108 H 111 H (74-99) mg/dL Calcium 8.0 L 7.8 L (8.4-10.2) mg/dL Total Bilirubin 2.2 H (0.2-1.3) mg/dL Ammonia 73 H (<30) umol/L Total Protein (6.3-8.2) g/dL Albumin 2.7 L (3.5-5.0) g/dL 08/26/23 08/26/23 Range/Units 06:12 08:26 RBC 3.87 L (4.30-5.90) m/uL Hgb 12.4 L (13.0-17.5) gm/dL Hct 37.2 L (39.0-53.0) % RDW 16.5 H (11.5-15.5) % Plt Count 42 L (150-450) k/uL Lymphocytes # 0.3 L (1.0-4.8) k/uL Sodium 127 L (137-145) mmol/L Potassium (3.5-5.1) mmol/L Carbon Dioxide (22-30) mmol/L BUN 35 H (9-20) mg/dL Creatinine 0.65 L (0.66-1.25) mg/dL Glucose 104 H (74-99) mg/dL Calcium 7.7 L (8.4-10.2) mg/dL Total Bilirubin 2.3 H (0.2-1.3) mg/dL Ammonia (<30) umol/L Total Protein 6.0 L (6.3-8.2) g/dL Albumin 2.4 L (3.5-5.0) g/dL Assessment and Plan Plan: Severe hyponatremia, the patient's sodium level dropped to as low as 119, initially treated with hypertonic saline and subsequent fluid restriction and sodium levels up to 127. No altered mentation at this point in time. No focal neurological deficits. Hypovolemic hyponatremia, secondary to diuretics, improved and patient is currently off diuretics History of liver cirrhosis with ascites, S/P high-volume paracentesis abdominous, August 18, 2023. Ammonia level was elevated and the patient was started on lactulose with subsequent improvement in the level. Hypertension. History of pneumonia. History of splenomegaly. History of pancreatitis. Plan: Monitor sodium level IV fluids to KVO Mental status is improving Continue lactulose Monitor mental status and hemodynamics May transfer to the medical floor.
[2023-08-27 07:53] VITALS: RESP 16; TEMP 98
[2023-08-27 09:17] LABS: ALT 30 U/L (4-49); AST 42 U/L (17-59); African American GFR (CKD) >90 (>60 ml/min/1.73 sqM); Albumin 2.3 g/dL (3.5-5.0); Albumin/Globulin Ratio 0.7; Alkaline Phosphatase 85 U/L (38-126); Anion Gap 3 mmol/L; Blood Urea Nitrogen 40 mg/dL (9-20); Calcium 7.8 mg/dL (8.4-10.2); Carbon Dioxide 25 mmol/L (22-30); Chloride 97 mmol/L (98-107); Globulin 3.5 g/dL; Glucose 84 mg/dL (74-99); Magnesium 2.2 mg/dL (1.6-2.3); Non-African American GFR(CKD) >90 (>60 ml/min/1.73 sqM); Potassium 4.1 mmol/L (3.5-5.1); Sodium 125 mmol/L (137-145); Total Bilirubin 2.1 mg/dL (0.2-1.3); Total Protein 5.8 g/dL (6.3-8.2)
[2023-08-27 09:41] LABS: Anisocytosis Slight; Basophils % (A) 0 %; Eosinophils # (A) 0.2 k/uL (0-0.7); Eosinophils % (A) 4 %; HCT 38.9 % (39.0-53.0); Lymphocytes # (A) 0.4 k/uL (1.0-4.8); Lymphocytes % (A) 12 %; MCH 32.2 pg (25.0-35.0); MCHC 33.5 g/dL (31.0-37.0); MCV 96.1 fL (80.0-100.0); Macrocytosis Slight; Mean Platelet Volume 8.6; Monocytes # (A) 0.5 k/uL (0-1.0); Monocytes % (A) 14 %; Neutrophils # (A) 2.4 k/uL (1.3-7.7); Neutrophils % (A) 66 %; RBC 4.05 m/uL (4.30-5.90); RDW 16.5 % (11.5-15.5); WBC 3.6 k/uL (3.8-10.6)
[2023-08-27 09:48] LABS: Platelet Count 39 k/uL (150-450)
--- NOTE | 2023-08-27 12:20 | P.PN ---
Subjective Patient is seen in follow-up for hyponatremia. Sodium level 125 this morning. Has been receiving IV Lasix the last 2 days. Urine output better post IV Lasix. Mentation better. Vital signs are stable. General: No acute distress. HEENT: Head exam is unremarkable. LUNGS: No audible rhonchi or wheezes. HEART: Rate and Rhythm are regular. ABDOMEN: Distention noted. Nontender. EXTREMITITES: Trace edema. Objective - Vital Signs Vital signs: Vital Signs Temp 98 F 08/27/23 07:10 Pulse 78 08/27/23 07:10 Resp 16 08/27/23 07:10 BP 115/70 08/27/23 07:10 Pulse Ox 95 08/27/23 07:10 FiO2 Intake & Output 08/26/23 08/27/23 08/27/23 18:59 06:59 18:59 Intake Total 780 720 356 Output Total 540 350 Balance 240 720 6 Weight 90.9 kg Intake: Oral 780 720 356 Output: Urine 540 350 Other: Voiding Method Indwelling Catheter Indwelling Catheter Indwelling Catheter - Labs CBC & Chem 7: 08/27/23 07:41 08/27/23 07:41 Labs: Abnormal Lab Results - Last 24 Hours (Table) 08/27/23 08/27/23 Range/Units 07:41 07:41 WBC 3.6 L (3.8-10.6) k/uL RBC 4.05 L (4.30-5.90) m/uL Hct 38.9 L (39.0-53.0) % RDW 16.5 H (11.5-15.5) % Plt Count 39 L (150-450) k/uL Lymphocytes # 0.4 L (1.0-4.8) k/uL Sodium 125 L (137-145) mmol/L Chloride 97 L (98-107) mmol/L BUN 40 H (9-20) mg/dL Calcium 7.8 L (8.4-10.2) mg/dL Total Bilirubin 2.1 H (0.2-1.3) mg/dL Total Protein 5.8 L (6.3-8.2) g/dL Albumin 2.3 L (3.5-5.0) g/dL Assessment and Plan Plan: Assessment: 1. Hyponatremia. Component of SIADH. Patient is also hypervolemic. Urine osmolality 522 and urine sodium 61. Repeat urine sodium less than 20 and urine osmolality 421. TSH 0.27. Status post Samsca this admission; also on urea tabs. Remains off 3%. 2. Liver cirrhosis. 3. Ascites status post paracentesis August 18, 2023 with 4.8 L drained. 4. Hyperkalemia due to acidosis. Status post Lokelma. Became hypokalemic from diuresis and had to be replaced. Stable at 4.1 today. Plan: Add Lasix 40 mg IV once daily. Add spironolactone 25 mg twice daily. Stop urea. Maintain fluid restriction. Samsca 7.5 mg once today. Encouraged oral intake.
[2023-08-27 12:36] VITALS: PULSE 81
[2023-08-27] MEDS: TOLVAPTAN 15 MG TABLET PO ONE (12:44)
[2023-08-27] MEDS: FUROSEMIDE 40 MG TAB PO SCH (12:44)
[2023-08-27] MEDS: SPIRONOLACTONE 25 MG TAB PO SCH (12:45)
--- NOTE | 2023-08-27 15:14 | P.DS ---
Providers Date of admission: 08/16/23 23:47 Expected date of discharge: 08/27/23 Attending physician: Reggie Cho Consults: 08/17/23 04:47 Consult Physician Routine Consulting Provider: Reggie Cho Consult Reason/Comments: Medical management Do you want consulting provider notified?: Yes, Notify in am 08/18/23 10:49 Consult Physician Routine Consulting Provider: Vignesh Xavier Consult Reason/Comments: Sodium 121, mental status changes Do you want consulting provider notified?: Yes 08/24/23 10:02 Consult Physician Routine Consulting Provider: Ajay Kaye Consult Reason/Comments: ICU management Do you want consulting provider notified?: Already Contacted Primary care physician: Reggie Cho Hospital Course: HISTORY OF PRESENT ILLNESS: This is a 63 year old male with a previous medical history significant for hypertension and hypertensive cardiovascular disease, hyperlipidemia, history of pancreatitis in the past along with prior history of sepsis due to cellulitis about 4 year ago, history of chronic alcoholic hepatitis with alcoholic liver cirrhosis with elevated coags liver function test. Patient presented to the emergency department 2 days ago for fatigue, weakness, abdominal pain, and fever of 102 degrees at home. Chest XR negative for acute cardiopulmonary process. CT of the abdomen/pelvis reveals cirrhosis with port venous hypterention, moderate ascites and distal esophageal varices with splenomegaly at 14 cm, a 2 cm lession anterior right hepatic dome. Patient was placed on IV Rocephin. IR was consulted for therapeutic paracentesis. MRI of the abdomen has been ordered. The brain CT showed age-related atrophic changes plus chronic small vessel ischemia without acute intracranial process. Blood work completed in ED reveals a WBC of 10.7, hemoglobin of 13.2 and platelet count of 108, PT 15 with INR of 1.5, sodium 120, potassium 5.1, BUNs/creatinine of 25/0.74, CRP of 2.30; UA is completed and is unremarkable. 08/17: Patient is lying in bed and is very lethargic at this time. Awaiting MRI of the abdomen. Patient did have ultrasound-guided paracentesis today with approximately 4800 cc of clear straw-colored fluid. Pathology pending. Continue 2 g of Rocephin IV once daily. Will start Lovenox 40 mg subcu daily for DVT prophylaxis. Continue current medications and pain management. Continue 1500 cc fluid restriction as well as oral nutrition supplementation. Sodium is up from 120 to 122 today. Patient remains a full code. 08/18: MRI of the abdomen complete, pending result. Urine osmolality 522, random urine sodium 61, serum sodium 123. Nephrology has seen the patient. Continue 0.9 at 75 cc an hour. Continue Rocephin 2 g daily. And we will repeat the sodium level this afternoon. Continue 1500 cc fluid restriction as well as oral nutrition supplementation. 08/19: Patient is sitting up in a chair at this time, alert, oriented, and making conversation. MRI of the abdomen showed no definitive lesions identified in the area of concern; however, small lesions are not excluded. The MRI also showed hepatic cirrhosis with evidence of portal hypertension with splenomegaly and ascites. Sodium today is 122, fluids have been discontinued. Tolvaptan 15 mg p.o. has been administered. Patient remains on a 1500 cc fluid restriction. We will repeat CMP tomorrow. Continue PT and OT. Plan is for [facility] for rehabilitation when patient is discharged. 08/20: Patient is lying in bed with friend at bedside. He is alert and oriented. A second dose of tolvaptan 15 mg given today, as well as 1 g of sodium chloride. Patient remains on a 1500 cc fluid restriction. We will repeat CBC and CMP tomorrow. Continue PT and OT. 08/21: Patient is lying in bed, states he feels good today. Denies chest pain or shortness of breath, denies pain. Last sodium level is 120. Patient has had 3 doses of tolvaptan 15 mg. He has also had 1 g of sodium chloride yesterday and 2 g of sodium chloride today. Maintain 1500 cc fluid restriction. We will repeat labs tomorrow. Once his sodium is stable, plan is for discharged to [facility]. 08/22: Sodium remains at 120 despite multiple doses of tolvaptan and sodium chloride. Patient was started on urea yesterday but will likely need 3% saline if sodium level does not improve. Continue fluid restriction, we will repeat labs tomorrow morning. 08/23: Patient was moved to ICU this morning for close monitoring due to initiation of 3% saline at 35 cc an hour. Latest sodium level 118. We will recheck sodium level every 4 hours. Continue 1500 cc fluid restriction. Patient doing well aside from the hyponatremia, he has no complaints at this time. 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 along with liver cirrhosis which makes it hard to manage between hypervolemia and SIADH euvolemia 08/25: Patient is sitting up in bed he is more awake and more alert today, he is less confused as yesterday, his ammonia level is down, he did receive couple doses of lactulose yesterday he did receive 1 dose of Lasix today as well, his sodium is up 127, we will continue with the same treatment plan, continue fluid restriction, we will discontinue Cornell catheter this evening, monitor the patient input and output and daily weight, physical therapy evaluation for the patient possibly going back to home versus subacute rehabilitation in the next 24 hours. 08/26: Patient is doing better today he denies any chest pain, or shortness of breath, he has been getting IV Lasix over the last 3 days, his sodium is down to 125, his BUN is up to 40, he was started on spironolactone 25 mg orally twice every day, he did receive 1 more dose of Lasix and Samsca, I believe the patient can be discharged home and follow-up as an outpatient with us and with nephrology, I will switch the patient to oral Lasix 40 mg once every day, continue spironolactone 25 mg twice every day, and continue fluid restriction 1500 cc in 24 hours, patient was accepted to go to [facility] for couple weeks for physical therapy and rehabilitation and after that he can go back to [facility]. I will follow-up with the patient over there. Discharge diagnoses: 1. Acute on chronic alcohol hepatitis with alcoholic liver cirrhosis and ascites. 2. Hyponatremia, secondary to SIADH and there is a component of hypervolemia. 3. Hypertension and hypertensive cardiovascular disease. 4. Orthostatic hypotension. 7. Medical debility. Will continue with physical therapy and Occupational Therapy at [facility]. 8. Severe protein calorie malnutrition. Continue patient on protein supplements. Plan - Discharge Summary Discharge Rx Participant: No New Discharge Prescriptions: New Spironolactone [Aldactone] 25 mg PO BID tab Lactulose [Cephulac] 10 gm PO TID ml Furosemide [Lasix] 40 mg PO DAILY tab Continue Folic Acid 1 mg PO DAILY tab traZODone HCL [Desyrel] 100 mg PO HS Pantoprazole [Protonix] 40 mg PO AC-BRKFST tab Midodrine [ProAmatine] 5 mg PO Q8H Potassium Chloride ER [K-Dur 20] 20 meq PO DAILY tablet Albuterol Inhaler [Ventolin Hfa Inhaler] 2 puff INHALATION RT-TID PRN PRN Reason: Shortness Of Breath Discontinued Spironolactone [Aldactone] 100 mg PO DAILY Furosemide [Lasix] 40 mg PO BID@0900,1600 tab Discharge Medication List traZODone HCL [Desyrel] 100 mg PO HS 06/18/21 [History] Pantoprazole [Protonix] 40 mg PO AC-BRKFST tab 06/22/21 [Rx] Midodrine [ProAmatine] 5 mg PO Q8H 07/13/21 [History] Folic Acid 1 mg PO DAILY tab 07/18/21 [Rx] Potassium Chloride ER [K-Dur 20] 20 meq PO DAILY tablet 07/18/21 [Rx] Albuterol Inhaler [Ventolin Hfa Inhaler] 2 puff INHALATION RT-TID PRN 08/06/23 [History] Furosemide [Lasix] 40 mg PO DAILY tab 08/27/23 [Rx] Lactulose [Cephulac] 10 gm PO TID ml 08/27/23 [Rx] Spironolactone [Aldactone] 25 mg PO BID tab 08/27/23 [Rx] Follow up Appointment(s)/Referral(s): Reggie Cho MD [Primary Care Provider] - 1-2 days [facility] on [facility], [NON-STAFF] - 1 Week Discharge Disposition: TRANSFER TO SNF/ECF
[2023-08-27 16:26] VITALS: BP 108/68
--- NOTE | 2023-08-27 23:19 | P.PN ---
Subjective Progress Note Date: 08/27/23 08/25/2023, the patient is being seen for a follow-up. In the intensive care unit. The patient is awake and alert and communicating. The patient is currently on room air oxygen with a pulse ox of 95%. The patient remains hemodynamically stable. Mental status continues to improve. Sodium level is improved and is currently at 124. Patient was taken off the hypertonic saline. Potassium is at 5.6, bicarb level is at 18 with a BUN of 31 creatinine of 0.5. Will discuss at 4.9 with hemoglobin 13.3 and a platelet count of 44. The patient is chronic liver disease and liver cirrhosis. Patient has not had any bowel movements. Will start the patient on lactulose in addition. Ammonia level needs to be also checked. His serum albumin is at 2.7 with a total protein of 6.5. LFTs are essentially within normal limits. Calcium level is at 8.0. Noted the patient's sodium level was as low as 118 and gradually improved. Patient was taken off the hypertonic saline solution. Otherwise, no other si gnificant events. No focal neurological deficits. He does have some ascites on examination along with an umbilical hernia that has been noted. On today's evaluation of 08/26/2023, patient is doing well and he is alert and awake. No significant events overnight. The patient has a sodium level of 127, BUN is at 35 with a creatinine of 0.6. WBC count of 5.4 with a hemoglobin 12.4. Ammonia level was 73 and the patient was started on lactulose and repeat level is down to 27. No signs of any significant encephalopathy at this point. No fever. No chills. Hemodynamically stable. Remains on Lovenox for DVT prophylaxis. Remains on Protonix. The patient remains on room air oxygen. No other active issues for now. 08/27/2023, the patient is being seen for a follow-up. Doing well, no comp laints, sodium level is currently at 125. Nephrology on the case and the patient is currently receiving IV Lasix with adequate urinary response and adequate urine output. He is known to have liver cirrhosis. He has undergone previous ascites on 08/22/2023. White cell count is at 3.6 with a hemoglobin of 13 and a platelet count of 39. BUN is at 40 with a creatinine of 0.6. Chloride is at 97 with a serum bicarb of 25. Awake and alert and neurologically stable without any encephalopathy. The patient is going to be discharged home on a combination of Lasix and Aldactone. He is also on lactulose. Pulse ox on room air oxygen is 96%. Objective - Vital Signs Vital signs: Vital Signs Temp 98 F 08/27/23 07:10 Pulse 78 08/27/23 07:10 Resp 16 08/27/23 07:10 BP 115/70 08/27/23 07:10 Pulse Ox 95 08/27/23 07:10 FiO2 Intake & Output 08/26/23 08/27/23 08/27/23 18:59 06:59 18:59 Intake Total 780 720 356 Output Total 540 350 Balance 240 720 6 Weight 90.9 kg Intake: Oral 780 720 356 Output: Urine 540 350 Other: Voiding Method Indwelling Catheter Indwelling Catheter Indwelling Catheter - Exam General: 63-year-old male sitting up in bed in no apparent distress. HEENT: Head is atraumatic, normocephalic, pupils were equal round reactive to light and recommendation, extraocular muscle movement were intact, sclera are deeply icteric, conjunctivae were pale, mucous membranes of the mouth are somewhat dry. Neck: Supple, no JVP, normal carotid upstroke bilaterally, no lymphadenopathy. Chest: Decreased breath sounds at the bases, no expiratory wheezes, no chest wall tenderness, no intercostal retractions. Heart: First heart sound is normal, second heart sounds normal there is BLANCA 2/6 located at the left sternal border Abdomen: Soft, distended, moderate ascites, no tenderness. Positive bowel sounds. Patient has an umbilical hernia along with evidence of ascites with fluid wave and shifting dullness. Extremities: No edema, no calf tenderness DP +2 bilaterally. Neurologic examination: Patient is awake and oriented X 2, cranial nerves II-12 appear grossly intact, muscle power were 4 out of 5 in upper extremities and 4 out of 5 in bilateral lower extremities, deep tendon reflexes normal bilater ally. - Labs CBC & Chem 7: 08/27/23 07:41 08/27/23 07:41 Labs: Abnormal Lab Results - Last 24 Hours (Table) 08/27/23 08/27/23 Range/Units 07:41 07:41 WBC 3.6 L (3.8-10.6) k/uL RBC 4.05 L (4.30-5.90) m/uL Hct 38.9 L (39.0-53.0) % RDW 16.5 H (11.5-15.5) % Plt Count 39 L (150-450) k/uL Lymphocytes # 0.4 L (1.0-4.8) k/uL Sodium 125 L (137-145) mmol/L Chloride 97 L (98-107) mmol/L BUN 40 H (9-20) mg/dL Calcium 7.8 L (8.4-10.2) mg/dL Total Bilirubin 2.1 H (0.2-1.3) mg/dL Total Protein 5.8 L (6.3-8.2) g/dL Albumin 2.3 L (3.5-5.0) g/dL Assessment and Plan Plan: Severe hyponatremia, the patient's sodium level dropped to as low as 119, initially treated with hypertonic saline and subsequent fluid restriction and sodium levels up to 125, no altered mentation the patient is currently on a combination of Lasix and Aldactone History of liver cirrhosis with ascites, S/P high-volume paracentesis ab dominous, August 18, 2023. Ammonia level was elevated and the patient was started on lactulose with subsequent improvement in the level. Hypertension. History of pneumonia. History of splenomegaly. History of pancreatitis. Plan: Sodium level is stable IV fluids to KVO Mental status improved Continue lactulose Continue Lasix and Aldactone Possible discharge home today.
== END 2023-08-27 17:03 | DRG 432 ==
LOC: EC 18:23 → 4SSUR 23:47 → 2SICU 08-24 10:13 → 5NMEDONC 08-26 16:30
PROVIDERS: ADMIT Internal Medicine; ATTEND Internal Medicine
PROC: 0W9G3ZZ Drainage of Peritoneal Cavity, Percutaneous Approach (ICD-10-PCS; principal; 2023-08-18)
DX: K70.31 Alcoholic cirrhosis of liver with ascites (principal); E43 Unspecified severe protein-calorie malnutrition; G93.41 Metabolic encephalopathy; K70.11 Alcoholic hepatitis with ascites; E22.2 Syndrome of inappropriate secretion of antidiuretic hormone; I85.10 Secondary esophageal varices without bleeding; K76.6 Portal hypertension; E87.20 Acidosis, unspecified; I10 Essential (primary) hypertension; N26.1 Atrophy of kidney (terminal); K42.9 Umbilical hernia without obstruction or gangrene; E86.1 Hypovolemia; E87.5 Hyperkalemia; I95.1 Orthostatic hypotension; E78.5 Hyperlipidemia, unspecified; E87.6 Hypokalemia; E87.70 Fluid overload, unspecified; T50.2X5A Adverse effect of carbonic-anhydrase inhibitors, benzothiadiazides and other diuretics, initial encounter; G47.00 Insomnia, unspecified; K21.9 Gastro-esophageal reflux disease without esophagitis; N28.1 Cyst of kidney, acquired; Z68.23 Body mass index [BMI] 23.0-23.9, adult; Z79.899 Other long term (current) drug therapy; Z82.49 Family history of ischemic heart disease and other diseases of the circulatory system; Z87.01 Personal history of pneumonia (recurrent); X58.XXXA Exposure to other specified factors, initial encounter
CPT/HCPCS: 36415; 49083; 70450; 71046; 74177; 74183; 76705; 80048; 80053; 80076; 81003; 82105; 82140; 83605; 83735; 83880; 83930; 83935; 84145; 84295; 84300; 84443; 84484; 85025; 85027; 85610; 85730; 86140; 87040; 87070; 87075; 87205; 87636; 89050; 93005; 94640; 94760; 96360; 96361; 99285

== ENCOUNTER 2023-09-03 08:56 | Day surgery (SDC) | payer MEDICARE, OTHER ==
[2023-09-03 09:52] VITALS: RESP 18; TEMP 97.7
[2023-09-03] MEDS: ALBUMIN HUMAN 25% 50 ML in EMPTY BAG 1 BAG IVPB SCH (10:00)
--- NOTE | 2023-09-03 11:18 | US ---
Ultrasound-guided paracentesis. DATE OF EXAM: 09/03/2023 CLINICAL HISTORY: Ascites The procedure was discussed with the patient. The risks, complications, benefits, and alternatives we re discussed and any questions were answered. Informed consent was obtained. The patient was placed s upine on the ultrasound table and prepped and draped in the usual sterile fashion. All elements of maximal barrier technique were utilized. Under ultrasound guidance, access into the right lower quadrant was obtained, via the paracentesis catheter system and direct ultrasound guidanc e. Approximately 8.2 liters of straw-colored fluid was removed. The patient was stable throughout the pr ocedure and remained stable upon discharge from Department of Radiology. IMPRESSION: Successful paracentesis under ultrasound guidance.
[2023-09-03 11:44] VITALS: BP 105/55; PULSE 74
== END 2023-09-03 11:15 ==
LOC: RADPROMAIN 08:56
PROVIDERS: ATTEND Internal Medicine
DX: R18.8 Other ascites (principal)
CPT/HCPCS: 49083; P9047

== ENCOUNTER 2023-09-17 08:45 | Day surgery (SDC) | payer MEDICARE, OTHER ==
[2023-09-17 09:26] VITALS: RESP 16; TEMP 98
[2023-09-17 09:27] LABS: African American GFR (CKD) >90 (>60 ml/min/1.73 sqM); Non-African American GFR(CKD) >90 (>60 ml/min/1.73 sqM)
[2023-09-17] MEDS: ALBUMIN HUMAN 25% 50 ML in EMPTY BAG 1 BAG IVPB SCH (09:56)
[2023-09-17 10:55] VITALS: BP 110/80; PULSE 81
--- NOTE | 2023-09-17 11:00 | US ---
Ultrasound-guided paracentesis. DATE OF EXAM: 09/17/2023 CLINICAL HISTORY: Ascites The procedure was discussed with the patient. The risks, complications, benefits, and alternatives we re discussed and any questions were answered. Informed consent was obtained. The patient was placed s upine on the ultrasound table and prepped and draped in the usual sterile fashion. All elements of maximal barrier technique were utilized. Under ultrasound guidance, access into the right lower quadrant was obtained, via the paracentesis catheter system and direct ultrasound guidanc e. Approximately 8 liters of straw-colored fluid was removed. The patient was stable throughout the proc edure and remained stable upon discharge from Department of Radiology. IMPRESSION: Successful paracentesis under ultrasound guidance.
== END 2023-09-17 11:10 | disposition home or self-care (01) ==
LOC: RADPROMAIN 08:45
PROVIDERS: ATTEND Internal Medicine
DX: R18.8 Other ascites (principal)
CPT/HCPCS: 82565; 36415; 49083; P9047

== ENCOUNTER → 2023-09-29 | Outpatient (CLI) | payer MEDICARE ==
[2023-09-29 13:51] LABS: INR 1.4 (<1.2); Partial Thromboplastin Time 29.6 sec (22.0-30.0); Prothrombin Time 14.1 sec (10.0-12.5)
[2023-09-29 19:53] LABS: Basophils # (A) 0.01 X 10*3/uL (0.00-0.10); Basophils % (A) 0.4 %; Eosinophils # (A) 0.08 X 10*3/uL (0.04-0.35); Eosinophils % (A) 3.2 %; HCT 32.4 % (39.6-50.0); HGB 11.1 g/dL (13.0-17.0); Immature Platelet Fraction 2.7 % (1.1-6.1); Lymphocytes # (A) 0.26 X 10*3/uL (0.90-5.00); Lymphocytes % (A) 10.4 %; MCH 32.5 pg (27.0-32.0); MCHC 34.3 g/dL (32.0-37.0); MCV 94.7 FL (80.0-97.0); Mean Platelet Volume 10.3 FL (9.5-12.2); Monocytes # (A) 0.33 X 10*3/uL (0.20-1.00); Monocytes % (A) 13.2 %; NRBC Per 100 WBC 0 X 10*3/uL (0.00-0.01); Neutrophils # (A) 1.81 X 10*3/uL (1.80-7.70); Neutrophils % (A) 72.4 %; Platelet Count 60 X 10*3/uL (140-440); RBC 3.42 X 10*6/uL (4.40-5.60); RDW 16.1 % (11.5-14.5)
== END | disposition home or self-care (01) ==
LOC: LABWHC1 12:36
PROVIDERS: ATTEND Internal Medicine Gastroenterology
DX: K70.31 Alcoholic cirrhosis of liver with ascites (principal)
CPT/HCPCS: 36415; 82105; 82565; 85025; 85610; 85730

== ENCOUNTER → 2023-09-29 | Outpatient (CLI) | payer MEDICARE | END | disposition home or self-care (01) | LOC: LABWHC1 12:34 | PROVIDERS: ATTEND Internal Medicine | DX: K70.31 Alcoholic cirrhosis of liver with ascites (principal) ==

== ENCOUNTER 2023-10-01 08:37 | Day surgery (SDC) | payer MEDICARE, OTHER ==
[2023-10-01 09:27] VITALS: RESP 12; TEMP 98.3
[2023-10-01] MEDS: ALBUMIN HUMAN 25% 50 ML in EMPTY BAG 1 BAG IVPB SCH (10:01)
[2023-10-01 11:03] VITALS: BP 94/53; PULSE 66
--- NOTE | 2023-10-02 11:18 | US ---
EXAMINATION TYPE: US paracentesis abd w/image DATE OF EXAM: 10/01/2023 9:59 AM CLINICAL INDICATION:Male, 63 years old with history of K70.31 ALCOHOLIC CIRRHOSIS OF LIVER WITH ASCIT ES; COMPARISON: 09/17/2023 ATTENDING: Dr. Ajay Cunha PROCEDURE: Informed consent was obtained. The risks of the procedure were extensively explained incl uding risk of damage to surrounding bowel with perforation and need for additional procedures. Proced ure was performed in the ultrasound procedure suite. Ultrasound imaging of the abdomen demonstrate as citic fluid. An appropriate access site was localized to the right lower abdomen. Timeout was taken p er protocol. The skin was prepped and draped in the usual sterile fashion and then locally anesthetiz ed with 1% lidocaine. The peritoneal cavity was then accessed via a 5-Japanese one-step needle/cathete r. Approximately 9500 cc of clear straw-colored fluid was obtained. Postprocedural imaging of the a bdomen demonstrate a minimal amount of abdominal fluid. Patient tolerated procedure well without immediate complication. Hemostasis at the procedural site w as obtained with a sterile bandage placed. The patient was monitored in the holding area following th e procedure and was subsequently discharged in stable condition. IMPRESSION: Ultrasound guided paracentesis, with approximately 9500 cc of clear straw-colored fluid drained. No immediate complications were evident.
== END 2023-10-01 11:20 | disposition home or self-care (01) ==
LOC: RADPROMAIN 08:37
PROVIDERS: ATTEND Internal Medicine
DX: K70.31 Alcoholic cirrhosis of liver with ascites (principal)
CPT/HCPCS: 36415; 49083; P9047

== ENCOUNTER 2023-10-15 08:36 | Day surgery (SDC) | payer MEDICARE, OTHER ==
[2023-10-15] MEDS: ALBUMIN HUMAN 25% 50 ML in EMPTY BAG 1 BAG IVPB SCH (10:15)
[2023-10-15 10:28] VITALS: RESP 18
[2023-10-15 11:20] VITALS: BP 109/64; PULSE 84
[2023-10-15 11:22] VITALS: TEMP 98.1
--- NOTE | 2023-10-15 12:33 | US ---
EXAMINATION TYPE: US paracentesis abd w/image DATE OF EXAM: 10/15/2023 9:33 AM CLINICAL INDICATION:Male, 63 years old with history of K70.31 ALCOHOLIC CIRRHOSIS OF LIVER WITH ASCIT ES; COMPARISON: 10/01/2023 ATTENDING: Dr. Ajay Cunha PROCEDURE: Informed consent was obtained. The risks of the procedure were extensively explained incl uding risk of damage to surrounding bowel with perforation and need for additional procedures. Proced ure was performed in the ultrasound procedure suite. Ultrasound imaging of the abdomen demonstrate as citic fluid. An appropriate access site was localized to the right lower abdomen. Timeout was taken p er protocol. The skin was prepped and draped in the usual sterile fashion and then locally anesthetiz ed with 1% lidocaine. The peritoneal cavity was then accessed via a 5-Slovenian one-step needle/cathete r. Approximately 81188 cc of clear straw-colored fluid was obtained. Postprocedural imaging of the abdomen demonstrate a minimal amount of abdominal fluid. Patient tolerated procedure well without immediate complication. Hemostasis at the procedural site w as obtained with a sterile bandage placed. The patient was monitored in the holding area following th e procedure and was subsequently discharged in stable condition. IMPRESSION: Ultrasound guided paracentesis, with approximately 05491 cc of clear straw-colored fluid drained. No immediate complications were evident.
== END 2023-10-15 11:20 | disposition home or self-care (01) ==
LOC: RADPROMAIN 08:36
PROVIDERS: ATTEND Internal Medicine
DX: K70.31 Alcoholic cirrhosis of liver with ascites (principal)
CPT/HCPCS: 36415; 49083; P9047

== ENCOUNTER 2023-10-27 08:04 | Day surgery (SDC) | payer MEDICARE ==
[2023-10-27 08:36] LABS: Mean Platelet Volume 7.7
[2023-10-27 08:42] LABS: Platelet Count 94 k/uL (150-450)
[2023-10-27 08:45] VITALS: TEMP 98.1
[2023-10-27 08:47] LABS: African American GFR (CKD) >90 (>60 ml/min/1.73 sqM); Non-African American GFR(CKD) >90 (>60 ml/min/1.73 sqM)
[2023-10-27 08:56] LABS: INR 1.3 (<1.2); Prothrombin Time 13.8 sec (10.0-12.5)
[2023-10-27] MEDS: ALBUMIN HUMAN 25% 50 ML in EMPTY BAG 1 BAG IVPB SCH (09:25)
[2023-10-27 09:30] VITALS: RESP 16
[2023-10-27 10:54] VITALS: BP 116/69; PULSE 89
--- NOTE | 2023-10-28 07:58 | US ---
Ultrasound-guided paracentesis. DATE OF EXAM: 10/27/2023 CLINICAL HISTORY: Ascites The procedure was discussed with the patient. The risks, complications, benefits, and alternatives we re discussed and any questions were answered. Informed consent was obtained. The patient was placed s upine on the ultrasound table and prepped and draped in the usual sterile fashion. All elements of maximal barrier technique were utilized. Under ultrasound guidance, access into the right lower quadrant was obtained, via the paracentesis catheter system and direct ultrasound guidanc e. Approximately 12 liters of straw-colored fluid was removed. The patient was stable throughout the pro cedure and remained stable upon discharge from Department of Radiology. IMPRESSION: Successful paracentesis under ultrasound guidance.
== END 2023-10-27 10:56 | disposition home or self-care (01) ==
LOC: RADPROMAIN 08:04
PROVIDERS: ATTEND Internal Medicine
DX: K70.31 Alcoholic cirrhosis of liver with ascites (principal)
CPT/HCPCS: 82565; 85049; 85610; 36415; 49083; P9047

== ENCOUNTER 2023-11-03 07:53 | Day surgery (SDC) | payer MEDICARE ==
[2023-11-03 08:45] VITALS: TEMP 98.2
[2023-11-03] MEDS: ALBUMIN HUMAN 25% 50 ML in EMPTY BAG 1 BAG IVPB SCH (09:02)
[2023-11-03 10:57] VITALS: BP 138/78; PULSE 100; RESP 18
--- NOTE | 2023-11-03 15:52 | US ---
EXAMINATION TYPE: US paracentesis abd w/image DATE OF EXAM: 11/03/2023 9:54 AM CLINICAL INDICATION:Male, 63 years old with history of K70.31 ascites; COMPARISON: 10/27/2023 ATTENDING: Dr. Ajay Cunha PROCEDURE: Informed consent was obtained. The risks of the procedure were extensively explained incl uding risk of damage to surrounding bowel with perforation and need for additional procedures. Proced ure was performed in the ultrasound procedure suite. Ultrasound imaging of the abdomen demonstrate as citic fluid. An appropriate access site was localized to the right lower abdomen. Timeout was taken p er protocol. The skin was prepped and draped in the usual sterile fashion and then locally anesthetiz ed with 1% lidocaine. The peritoneal cavity was then accessed via a 5-Macedonian one-step needle/cathete r. Approximately 28113 cc of clear straw-colored fluid was obtained. Postprocedural imaging of the abdomen demonstrate a minimal amount of abdominal fluid. Patient tolerated procedure well without immediate complication. Hemostasis at the procedural site w as obtained with a sterile bandage placed. The patient was monitored in the holding area following th e procedure and was subsequently discharged in stable condition. IMPRESSION: Ultrasound guided paracentesis, with approximately 33828 cc of clear straw-colored fluid drained. No immediate complications were evident.
[2023-11-03 18:07] LABS: Hepatitis B Surface Antigen Nonreactive (Nonreactive); Hepatitis C IgG Antibody Nonreactive (Nonreactive)
== END 2023-11-03 10:50 | disposition home or self-care (01) ==
LOC: RADPROMAIN 07:53
PROVIDERS: ATTEND Internal Medicine
DX: K70.31 Alcoholic cirrhosis of liver with ascites (principal)
CPT/HCPCS: 86803; 86701; 87340; 36415; 49083; P9047

== ENCOUNTER → 2023-11-12 | Day surgery (SDC) | payer MEDICARE ==
[~2023-11-12] MED LIST changes: +ALBUMIN HUMAN 25% (12.5gm) 50 ML VIAL ONE; -MOXIFLOXACIN HCL 0.5% DROPS 3 ML BTL OP PRN; -TETRACAINE 0.5% OPHTH (PF) DROPS 4 ML BTL OP PRN; -TIMOLOL 0.5% OPHTH DROPS 5 ML BTL OP PRN
--- NOTE | 2023-12-03 13:17 | US ---
EXAMINATION TYPE: US paracentesis abd w/image DATE OF EXAM: 12/03/2023 CLINICAL HISTORY: 63-year-old male ascites, referred for paracentesis. The procedure was discussed with the patient. The risks, complications, benefits, and alternatives we re discussed and any questions were answered. Informed consent was obtained. The patient was placed s upine on the ultrasound table and prepped and draped in the usual sterile fashion. All elements of maximal barrier technique were utilized. Under ultrasound guidance, access into the right lower quadrant was obtained, via the 5 Tristanian one-st ep catheter system and direct ultrasound guidance. Approximately 12.4 L of slightly cloudy pascale-colored fluid was removed. The patient was stable throughout the procedure and remained stable upon discharge from Department of Radiology. IMPRESSION: Successful paracentesis under ultrasound guidance. 12.4 L of typical appearing fluid removed.
== END ==
LOC: RADPROMAIN 09:08
PROVIDERS: ATTEND Internal Medicine
DX: R18.8 Other ascites (principal)
CPT/HCPCS: 49083; 82565; 85025; 85610; 86850; 86900; 86901

== ENCOUNTER → 2023-11-19 | Day surgery (SDC) | payer MEDICARE ==
--- NOTE | 2023-12-17 15:54 | US ---
EXAMINATION TYPE: US paracentesis abd w/image DATE OF EXAM: 12/16/2023 9:36 AM CLINICAL INDICATION:Male, 63 years old with history of Ascites; COMPARISON: 11/12/2023 ATTENDING: Dr. Ajay Cunha PROCEDURE: Informed consent was obtained. The risks of the procedure were extensively explained incl uding risk of damage to surrounding bowel with perforation and need for additional procedures. Proced ure was performed in the ultrasound procedure suite. Ultrasound imaging of the abdomen demonstrate as citic fluid. An appropriate access site was localized to the right lower abdomen. Timeout was taken p er protocol. The skin was prepped and draped in the usual sterile fashion and then locally anesthetiz ed with 1% lidocaine. The peritoneal cavity was then accessed via a 5-Mauritanian one-step needle/cathete r. Approximately 7400 cc of clear straw-colored fluid was obtained. Postprocedural imaging of the ab domen demonstrate a minimal amount of abdominal fluid. Patient tolerated procedure well without immediate complication. Hemostasis at the procedural site w as obtained with a sterile bandage placed. The patient was monitored in the holding area following th e procedure and was subsequently discharged in stable condition. IMPRESSION: Ultrasound guided paracentesis, with approximately 7400 cc of clear straw-colored fluid drained. No immediate complications were evident.
== END ==
LOC: RADPROMAIN 08:21
PROVIDERS: ATTEND Internal Medicine
DX: R18.8 Other ascites (principal)
CPT/HCPCS: 49083

== ENCOUNTER → 2023-11-26 | Day surgery (SDC) | payer MEDICARE ==
--- NOTE | 2023-12-24 15:09 | US ---
Fred Kim ID: [id number] : 05/08/1959 EXAMINATION TYPE: US paracentesis abd w/image DATE OF EXAM: 11/26/2023 CLINICAL HISTORY: 64-year-old male ascites, referred for paracentesis The procedure was discussed with the patient. The risks, complications, benefits, and alternatives we re discussed and any questions were answered. Informed consent was obtained. The patient was placed s upine on the ultrasound table and prepped and draped in the usual sterile fashion. All elements of maximal barrier technique were utilized. Ultrasound was utilized to determine the precise skin entry site along the right lower quadrant/right flank. A 5 Egyptian One-Step catheter and trocar technique was utilized to access the ascites collection under direct ultrasound guidance. Approximately 14.3 liters of clear, straw-colored fluid was removed. Catheter was removed, hemostasis obtained, and a dressing placed. The patient was stable throughout the procedure and remained stable upon discharge from Department of Radiology. IMPRESSION: Successful therapeutic paracentesis under ultrasound guidance. 14.3 L of fluid removed.
== END ==
LOC: RADPROMAIN 06:40
PROVIDERS: ATTEND Internal Medicine
DX: R18.8 Other ascites (principal)
CPT/HCPCS: 49083

== ENCOUNTER 2023-12-03 08:55 | Day surgery (SDC) | payer MEDICARE ==
[2023-12-03] MEDS: ALBUMIN HUMAN 25% 50 ML in EMPTY BAG 1 BAG IVPB SCH (09:30)
[2023-12-03 09:40] LABS: HGB 10.4 gm/dL (13.0-17.5); Hypochromasia Moderate; MCH 32.2 pg (25.0-35.0); MCHC 32.5 g/dL (31.0-37.0); MCV 98.9 fL (80.0-100.0); Macrocytosis Slight; Mean Platelet Volume 7.5; RBC 3.23 m/uL (4.30-5.90); RDW 14.9 % (11.5-15.5); WBC 2.6 k/uL (3.8-10.6)
[2023-12-03 09:43] LABS: Platelet Count 73 k/uL (150-450)
[2023-12-03 09:47] LABS: INR 1.3 (<1.2)
[2023-12-03 10:05] LABS: African American GFR (CKD) >90 (>60 ml/min/1.73 sqM); Non-African American GFR(CKD) >90 (>60 ml/min/1.73 sqM)
[2023-12-03 10:18] VITALS: RESP 18; TEMP 98.4
[2023-12-03 12:24] VITALS: BP 99/54; PULSE 72
--- NOTE | 2023-12-03 14:27 | US ---
EXAMINATION TYPE: US paracentesis abd w/image DATE OF EXAM: 12/03/2023 10:28 AM CLINICAL INDICATION:Male, 63 years old with history of K70.31 ALCOHOLIC CIRRHOSIS OF LIVER WITH ASCIT ES; COMPARISON: 11/12/2023 ATTENDING: Dr. Ajay Cunha PROCEDURE: Informed consent was obtained. The risks of the procedure were extensively explained incl uding risk of damage to surrounding bowel with perforation and need for additional procedures. Proced ure was performed in the ultrasound procedure suite. Ultrasound imaging of the abdomen demonstrate as citic fluid. An appropriate access site was localized to the right lower abdomen. Timeout was taken p er protocol. The skin was prepped and draped in the usual sterile fashion and then locally anesthetiz ed with 1% lidocaine. The peritoneal cavity was then accessed via a 5-Maori one-step needle/cathete r. Approximately 14482 cc of clear straw-colored fluid was obtained. Postprocedural imaging of the a bdomen demonstrate a minimal amount of abdominal fluid. Patient tolerated procedure well without immediate complication. Hemostasis at the procedural site w as obtained with a sterile bandage placed. The patient was monitored in the holding area following th e procedure and was subsequently discharged in stable condition. IMPRESSION: Ultrasound guided paracentesis, with approximately 19652 cc of clear straw-colored fluid drained. No immediate complications were evident.
== END 2023-12-03 12:20 | disposition home or self-care (01) ==
LOC: RADPROMAIN 08:55
PROVIDERS: ATTEND Internal Medicine
DX: K70.31 Alcoholic cirrhosis of liver with ascites (principal)

== ENCOUNTER 2023-12-10 09:05 | Day surgery (SDC) | payer MEDICARE ==
[2023-12-10 10:07] LABS: Basophils % (A) 0 %; Eosinophils # (A) 0.1 k/uL (0-0.7); Eosinophils % (A) 4 %; HCT 33.1 % (39.0-53.0); Hypochromasia Slight; Lymphocytes # (A) 0.2 k/uL (1.0-4.8); Lymphocytes % (A) 8 %; MCH 32.6 pg (25.0-35.0); MCHC 33.3 g/dL (31.0-37.0); Mean Platelet Volume 7.7; Monocytes # (A) 0.3 k/uL (0-1.0); Monocytes % (A) 10 %; Neutrophils # (A) 2.3 k/uL (1.3-7.7); Neutrophils % (A) 75 %; RBC 3.38 m/uL (4.30-5.90); RDW 14.7 % (11.5-15.5); WBC 3.1 k/uL (3.8-10.6)
[2023-12-10 10:14] LABS: African American GFR (CKD) >90 (>60 ml/min/1.73 sqM); Non-African American GFR(CKD) >90 (>60 ml/min/1.73 sqM)
[2023-12-10 10:16] LABS: INR 1.3 (<1.2); Prothrombin Time 13.7 sec (10.0-12.5)
[2023-12-10] MEDS: ALBUMIN HUMAN 25% 50 ML in EMPTY BAG 1 BAG IVPB SCH (10:16)
[2023-12-10 10:48] LABS: Platelet Count 85 k/uL (150-450)
[2023-12-10 12:14] VITALS: RESP 18
[2023-12-10 12:49] VITALS: BP 111/66; PULSE 68
--- NOTE | 2023-12-11 07:49 | US ---
Ultrasound-guided paracentesis. DATE OF EXAM: 12/10/2023 CLINICAL HISTORY: Ascites The procedure was discussed with the patient. The risks, complications, benefits, and alternatives we re discussed and any questions were answered. Informed consent was obtained. The patient was placed s upine on the ultrasound table and prepped and draped in the usual sterile fashion. All elements of maximal barrier technique were utilized. Under ultrasound guidance, access into the right lower quadrant was obtained, via the paracentesis catheter system and direct ultrasound guidanc e. Approximately 12.3 liters of straw-colored fluid was removed. The patient was stable throughout the p rocedure and remained stable upon discharge from Department of Radiology. IMPRESSION: Successful paracentesis under ultrasound guidance.
== END 2023-12-10 12:35 | disposition home or self-care (01) ==
LOC: RADPROMAIN 09:05
PROVIDERS: ATTEND Internal Medicine
DX: R18.8 Other ascites (principal)
CPT/HCPCS: 36415; 49083; 82565; 85025; 85610

== ENCOUNTER 2023-12-17 08:54 | Day surgery (SDC) | payer MEDICARE ==
[2023-12-17 10:15] VITALS: RESP 16; TEMP 98.6
[2023-12-17] MEDS: ALBUMIN HUMAN 25% 50 ML in EMPTY BAG 1 BAG IVPB SCH (10:37)
[2023-12-17 12:09] VITALS: BP 105/73; PULSE 75
--- NOTE | 2023-12-17 13:11 | US ---
EXAMINATION TYPE: US paracentesis abd w/image DATE OF EXAM: 12/17/2023 CLINICAL HISTORY: 63-year-old male K70.31, referred for weekly paracentesis. The procedure was discussed with the patient. The risks, complications, benefits, and alternatives we re discussed and any questions were answered. Informed consent was obtained. The patient was placed s upine on the ultrasound table and prepped and draped in the usual sterile fashion. All elements of maximal barrier technique were utilized. Ultrasound was utilized to determine the precise skin entry site along the right lower quadrant/right flank. A 5 Occitan One-Step catheter and trocar technique was utilized to access the ascites collection under direct ultrasound guidance. Approximately 9.8 liters of clear, yellow-colored fluid was removed. Catheter was removed, hemostasis obtained, and a dressing placed. The patient was stable throughout the procedure and remained stable upon discharge from Department of Radiology. IMPRESSION: Successful therapeutic paracentesis under ultrasound guidance. 9.8 L of fluid removed.
== END 2023-12-17 12:06 | disposition home or self-care (01) ==
LOC: RADPROMAIN 08:54
PROVIDERS: ATTEND Internal Medicine
DX: K70.31 Alcoholic cirrhosis of liver with ascites (principal)
CPT/HCPCS: 49083

== ENCOUNTER 2023-12-24 08:49 | Day surgery (SDC) | payer MEDICARE ==
[2023-12-24 09:37] VITALS: RESP 16; TEMP 98.2
[2023-12-24] MEDS: ALBUMIN HUMAN 25% 50 ML in EMPTY BAG 1 BAG IVPB SCH (09:57)
[2023-12-24 11:00] VITALS: BP 100/57; PULSE 78
--- NOTE | 2023-12-24 11:47 | US ---
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 Ajay Cunha PROCEDURE: Informed consent was obtained. The risks of the procedure were extensively explained incl uding risk of damage to surrounding bowel with perforation and need for additional procedures. Proced ure was performed in the ultrasound procedure suite. Ultrasound imaging of the abdomen demonstrate as citic fluid. An appropriate access site was localized to the right lower abdomen. Timeout was taken p er protocol. The skin was prepped and draped in the usual sterile fashion and then locally anesthetiz ed with 1% lidocaine. The peritoneal cavity was then accessed via a 5-Bengali one-step needle/cathete r. Approximately 7800 cc of clear straw-colored fluid was obtained. Postprocedural imaging of the a bdomen demonstrate a minimal amount of abdominal fluid. Patient tolerated procedure well without immediate complication. Hemostasis at the procedural site w as obtained with a sterile bandage placed. The patient was monitored in the holding area following th e procedure and was subsequently discharged in stable condition. IMPRESSION: Ultrasound guided paracentesis, with approximately 7800 cc of clear straw-colored fluid drained. No immediate complications were evident. [facility], , 12/24/2023 11:45 AM
== END 2023-12-24 11:15 | disposition home or self-care (01) ==
LOC: RADPROMAIN 08:49
PROVIDERS: ATTEND Internal Medicine
DX: K70.31 Alcoholic cirrhosis of liver with ascites (principal)
CPT/HCPCS: 49083; P9047

== ENCOUNTER 2023-12-31 08:51 | Day surgery (SDC) | payer MEDICARE ==
[2023-12-31 10:08] VITALS: RESP 18; TEMP 98.4
[2023-12-31] MEDS: ALBUMIN HUMAN 25% 50 ML in EMPTY BAG 1 BAG IVPB SCH (10:30)
[2023-12-31 11:07] VITALS: BP 94/56; PULSE 74
--- NOTE | 2023-12-31 13:06 | US ---
Ultrasound-guided paracentesis. DATE OF EXAM: 12/31/2023 CLINICAL HISTORY: Ascites The procedure was discussed with the patient. The risks, complications, benefits, and alternatives we re discussed and any questions were answered. Informed consent was obtained. The patient was placed s upine on the ultrasound table and prepped and draped in the usual sterile fashion. All elements of maximal barrier technique were utilized. Under ultrasound guidance, access into the right lower quadrant was obtained, via the paracentesis catheter system and direct ultrasound guidanc e. Approximately 5.8 liters of straw-colored fluid was removed. The patient was stable throughout the pr ocedure and remained stable upon discharge from Department of Radiology. IMPRESSION: Successful paracentesis under ultrasound guidance. [facility], , 12/31/2023 1:04 PM
== END 2023-12-31 11:10 | disposition home or self-care (01) ==
LOC: RADPROMAIN 08:51
PROVIDERS: ATTEND Internal Medicine
DX: R18.8 Other ascites (principal)
CPT/HCPCS: 49083

== ENCOUNTER 2023-12-31 19:05 | Inpatient (IN) | payer MEDICARE, OTHER ==
--- NOTE | 2023-12-31 19:45 | ED ---
Recheck HPI - General Chief Complaint: Recheck/Abnormal Lab/Rx Stated Complaint: abn labs Source: patient, family, RN notes reviewed, old records reviewed Mode of arrival: wheelchair Limitations: no limitations - History of Present Illness Initial Comments: This is a 63-year-old male for abnormal outpatient lab values. Patient states he went to dinner tonight and was later informed of his significantly abnormal outpatient lab test. Patient was called by primary care and sent to the ER for management MD Complaint: abnormal lab (Low-sodium) -: unknown Returns Today for: Called Because of Abnormal Lab/Test Symptoms Since Prior Visit: no new symptoms Context: called for abnormal lab result Associated Symptoms: none Treatments Prior to Arrival: other - Related Data Home Medications Medication Instructions Recorded Confirmed Midodrine [ProAmatine] 5 mg PO TID 07/13/21 01/07/24 Albuterol Inhaler [Ventolin Hfa 2 puff INHALATION RT-TID PRN 08/06/23 01/07/24 Inhaler] Sodium Chloride Tab 1 gm PO BID 09/17/23 01/07/24 traZODone HCL 150 mg PO HS 12/31/23 01/07/24 Previous Rx's Medication Instructions Recorded Pantoprazole [Protonix] 40 mg PO AC-BRKFST tab 06/22/21 Folic Acid 1 mg PO DAILY tab 07/18/21 Potassium Chloride ER [K-Dur 20] 20 meq PO DAILY tablet 07/18/21 Furosemide [Lasix] 40 mg PO DAILY tab 08/27/23 Spironolactone [Aldactone] 50 mg PO BID #60 tab 01/05/24 Allergies Allergy/AdvReac Type Severity Reaction Status Date / Time lisinopril AdvReac causes Verified 01/07/24 10:29 pancreatitis Review of Systems ROS Statement: Those systems with pertinent positive or pertinent negative responses have been documented in the HPI. ROS Other: All systems not noted in ROS Statement are negative. Past Medical History Past Medical History: Hypertension, Liver Disease, Pneumonia Additional Past Medical History / Comment(s): Liver cirrhosis, splenomegaly, pancreatitis-pt states pancreatitis was side effect from Lisinopril, pt denies hx of alcoholism/drinking heavily, cellulitis with sepsis, ASCITES History of Any Multi-Drug Resistant Organisms: None Reported Past Surgical History: No Surgical Hx Reported Additional Past Surgical History / Comment(s): dental extraction, cataract bilateral - Pt states he was awake for both procedure and has never had general anesthesia Past Anesthesia/Blood Transfusion Reactions: No Reported Reaction, Unable to Obtain Additional Past Anesthesia/Blood Transfusion Reaction / Comment(s): Pt has never had anesthesia Past Psychological History: No Psychological Hx Reported Smoking Status: Never smoker Past Alcohol Use History: None Reported Past Drug Use History: None Reported - Past Family History Mother Family Medical History: Hypertension Additional Family Medical History / Comment(s): Mother lived to be 91 yrs old. Father Family Medical History: CVA/TIA Additional Family Medical History / Comment(s): Father of a CVA at the age of 65yrs. Son(s) Family Medical History: No Reported History Daughter(s) Family Medical History: No Reported History General Exam Limitations: no limitations General appearance: alert, in no apparent distress Head exam: Present: atraumatic, normocephalic, normal inspection Eye exam: Present: normal appearance, PERRL, EOMI. Absent: scleral icterus, conjunctival injection, periorbital swelling ENT exam: Present: normal exam, mucous membranes moist Neck exam: Present: normal inspection. Absent: tenderness, meningismus, lymphadenopathy Respiratory exam: Present: normal lung sounds bilaterally. Absent: respiratory distress, wheezes, rales, rhonchi, stridor Cardiovascular Exam: Present: regular rate, normal rhythm, normal heart sounds. Absent: systolic murmur, diastolic murmur, rubs, gallop, clicks GI/Abdominal exam: Present: soft, normal bowel sounds. Absent: distended, tenderness, guarding, rebound, rigid Extremities exam: Present: normal inspection, full ROM, normal capillary refill. Absent: tenderness, pedal edema, joint swelling, calf tenderness Back exam: Present: normal inspection Neurological exam: Present: alert, oriented X3, CN II-XII intact Psychiatric exam: Present: normal affect, normal mood Skin exam: Present: warm, dry, intact, normal color. Absent: rash Course Vital Signs 12/31/23 12/31/23 12/31/23 19:17 19:42 20:20 Temperature 98.6 F Pulse Rate 63 84 80 Pulse Rate [ Pulse Oximetery ] Respiratory 18 16 15 Rate Blood Pressure 91/55 95/58 95/62 Blood Pressure [Right Arm Supine] O2 Sat by Pulse 98 95 100 Oximetry 12/31/23 12/31/23 12/31/23 21:10 22:00 23:14 Temperature Pulse Rate 81 75 76 Pulse Rate [ Pulse Oximetery ] Respiratory 13 16 16 Rate Blood Pressure 104/39 93/60 110/71 Blood Pressure [Right Arm Supine] O2 Sat by Pulse 96 99 95 Oximetry 01/01/24 01/01/24 01/01/24 00:00 01:00 03:00 Temperature Pulse Rate 76 75 75 Pulse Rate [ Pulse Oximetery ] Respiratory 16 16 16 Rate Blood Pressure 90/60 98/55 99/63 Blood Pressure [Right Arm Supine] O2 Sat by Pulse 99 100 99 Oximetry 01/01/24 01/01/24 01/01/24 05:00 05:58 06:00 Temperature 98.2 F Pulse Rate 66 77 75 Pulse Rate [ Pulse Oximetery ] Respiratory 16 18 18 Rate Blood Pressure 89/64 97/54 97/54 Blood Pressure [Right Arm Supine] O2 Sat by Pulse 99 95 100 Oximetry 01/01/24 01/01/24 01/01/24 08:00 11:00 12:00 Temperature Pulse Rate 81 87 82 Pulse Rate [ Pulse Oximetery ] Respiratory 21 18 15 Rate Blood Pressure 106/64 107/65 107/65 Blood Pressure [Right Arm Supine] O2 Sat by Pulse 98 98 99 Oximetry 01/01/24 01/01/24 01/01/24 13:00 14:00 15:00 Temperature Pulse Rate 85 Pulse Rate [ Pulse Oximetery ] Respiratory 14 15 15 Rate Blood Pressure 105/68 116/69 104/67 Blood Pressure [Right Arm Supine] O2 Sat by Pulse 98 100 99 Oximetry 01/01/24 01/01/24 01/01/24 16:00 17:00 20:00 Temperature Pulse Rate 84 88 79 Pulse Rate [ Pulse Oximetery ] Respiratory 22 16 18 Rate Blood Pressure 105/68 103/66 93/72 Blood Pressure [Right Arm Supine] O2 Sat by Pulse 98 97 96 Oximetry 01/01/24 21:30 Temperature 98.1 F Pulse Rate 84 Pulse Rate [ 99 Pulse Oximetery ] Respiratory 16 Rate Blood Pressure 96/67 Blood Pressure 111/62 [Right Arm Supine] O2 Sat by Pulse 97 Oximetry - Reevaluation(s) Reevaluation #1: 12/31/23 20:22 Medical records reviewed Reevaluation #2: 12/31/23 20:22 Patient symptoms unchanged Reevaluation #3: 12/31/23 20:22 Patient informed of results and questions answered Reevaluation #4: Was pt. sent in by a medical professional or institution ([facility]OROTHY Whelan, [employer]AR [employer]INTER, urgent care, hospital, or [facility]...) When possible be specific @ -no Did you speak to anyone other than the patient for history (EMS, parent, family, police, friend...)? What history was obtained from this source @ -no Did you review nursing and triage notes (agree or disagree)? Why? @ -agree Are old charts reviewed (outside hosp., previous admission, EMS record, old EKG, old radiological studies, urgent care reports/EKG's, [facility] records)? Report findings @ -yes Differential Diagnosis (chest pain, altered mental status, abdominal pain women, abdominal pain men, vaginal bleeding, weakness, fever, dyspnea, syncope, headache, dizziness, GI bleed, back pain, seizure, CVA, palpatations, mental health, musculoskeletal)? @ -prior EKG interpreted by me (3pts min.). @ -yes X-rays interpreted by me (1pt min.). @ -no CT interpreted by me (1pt min.). @ -no U/S interpreted by me (1pt. min.). @ -no What testing was considered but not performed or refused? (CT, X-rays, U/S, labs)? Why? @ -none What meds were considered but not given or refused? Why? @ -none Did you discuss the management of the patient with other professionals (professionals i.e. DOROTHY Whelan, COLLAR POINTER, lab, RT, psych nurse, social media marketing analyst, bumper machine operator, teacher, safety and security officer, rn case mgr)? Give summary @ -no Was smoking cessation discussed for >3mins.? @ -no Was critical care preformed (if so, how long)? @ -no Were there social determinants of health that impacted care today? How? (Homelessness, low income, unemployed, alcoholism, drug addiction, transportation, low edu. Level, literacy, decrease access to med. care, long-term, rehab)? @ -none Was there de-escalation of care discussed even if they declined (Discuss DNR or withdrawal of care, Hospice)? DNR status @ -no What co-morbidities impacted this encounter? (DM, HTN, Smoking, COPD, CAD, Cancer, CVA, ARF, Chemo, Hep., AIDS, mental health diagnosis, sleep apnea, morbid obesity)? @ -none Was patient admitted / discharged? Hospital course, mention meds given and route, prescriptions, significant lab abnormalities, going to OR and other pertinent info. @ - 63 male to ER for evaluation of other significant and severe hyponatremia patient will admit for need for acute significant supportive care Admitted Undiagnosed new problem with uncertain prognosis? @ -no Drug Therapy requiring intensive monitoring for toxicity (Heparin, Nitro, Insulin, Cardizem)? @ -no Were any procedures done? @ -no Diagnosis/symptom? @ -Hyponatremia and debility Acute, or Chronic, or Acute on Chronic? @ -Acute Uncomplicated (without systemic symptoms) or Complicated (systemic symptoms)? @ -Complicated Side effects of treatment? @ -no Exacerbation, Progression, or Severe Exacerbation? @ -exacerbation Poses a threat to life or bodily function? How? (Chest pain, [place], [place], pneumonia, PE, COPD, DKA, ARF, appy, cholecystitis, CVA, Diverticulitis, Homicidal, Suicidal, threat to staff... and all critical care pts) @ -yes extremes of age Reevaluation #5: Differential Weakness: Hypoglycemia, shock, sepsis, hyponatremia, anemia, infection, [place], ETOH, adverse medicine reaction, overdose, stroke, this is not meant to be an all-inclusive list. - Consultations Consultation #1: Spoke with Dr. Cho who agrees to admit this patient with Medical Decision Making - Medical Decision Making 63 male to ER for evaluation of other significant and severe hyponatremia patient will admit for need for acute significant supportive care - Lab Data Result diagrams: 01/05/24 07:06 01/05/24 07:06 Lab Results 12/31/23 12/31/23 12/31/23 Range/Units 19:52 19:52 19:52 WBC 4.5 (3.8-10.6) k/uL RBC 2.95 L (4.30-5.90) m/uL Hgb 9.4 L (13.0-17.5) gm/dL Hct 28.2 L (39.0-53.0) % MCV 95.6 (80.0-100.0) fL MCH 31.8 (25.0-35.0) pg MCHC 33.3 (31.0-37.0) g/dL RDW 15.8 H (11.5-15.5) % Plt Count 61 L (150-450) k/uL MPV 7.8 Neutrophils % (Manual) 80 % Lymphocytes % (Manual) 5 % Monocytes % (Manual) 13 % Eosinophils % (Manual) 2 % Neutrophils # (Manual) 3.60 (1.3-7.7) k/uL Lymphocytes # (Manual) 0.23 L (1.0-4.8) k/uL Monocytes # (Manual) 0.59 (0-1.0) k/uL Eosinophils # (Manual) 0.09 (0-0.7) k/uL Nucleated RBCs 0 (0-0) /100 WBC Manual Slide Review Performed PT 16.6 H (10.0-12.5) sec INR 1.6 H (<1.2) APTT 35.7 H (22.0-30.0) sec Sodium 117 L* (137-145) mmol/L Potassium 5.2 H (3.5-5.1) mmol/L Chloride 93 L (98-107) mmol/L Carbon Dioxide 17 L (22-30) mmol/L Anion Gap 7 mmol/L BUN 11 (9-20) mg/dL Creatinine 0.86 (0.66-1.25) mg/dL Est GFR (CKD-EPI)AfAm >90 (>60 ml/min/1.73 sqM) Est GFR (CKD-EPI)NonAf >90 (>60 ml/min/1.73 sqM) Glucose 93 (74-99) mg/dL Lactic Ac Sepsis Rflx Plasma Lactic Acid Mason (0.7-2.0) mmol/L Calcium 7.8 L (8.4-10.2) mg/dL Phosphorus 2.8 (2.5-4.5) mg/dL Magnesium 2.0 (1.6-2.3) mg/dL Total Bilirubin 2.5 H (0.2-1.3) mg/dL AST 33 (17-59) U/L ALT 20 (4-49) U/L Alkaline Phosphatase 65 (38-126) U/L Troponin I (0.000-0.034) ng/mL Total Protein 5.0 L (6.3-8.2) g/dL Albumin 2.4 L (3.5-5.0) g/dL Serum Alcohol <10 mg/dL 12/31/23 12/31/23 12/31/23 Range/Units 19:52 19:52 20:39 WBC (3.8-10.6) k/uL RBC (4.30-5.90) m/uL Hgb (13.0-17.5) gm/dL Hct (39.0-53.0) % MCV (80.0-100.0) fL MCH (25.0-35.0) pg MCHC (31.0-37.0) g/dL RDW (11.5-15.5) % Plt Count (150-450) k/uL MPV Neutrophils % (Manual) % Lymphocytes % (Manual) % Monocytes % (Manual) % Eosinophils % (Manual) % Neutrophils # (Manual) (1.3-7.7) k/uL Lymphocytes # (Manual) (1.0-4.8) k/uL Monocytes # (Manual) (0-1.0) k/uL Eosinophils # (Manual) (0-0.7) k/uL Nucleated RBCs (0-0) /100 WBC Manual Slide Review PT (10.0-12.5) sec INR (<1.2) APTT (22.0-30.0) sec Sodium (137-145) mmol/L Potassium (3.5-5.1) mmol/L Chloride (98-107) mmol/L Carbon Dioxide (22-30) mmol/L Anion Gap mmol/L BUN (9-20) mg/dL Creatinine (0.66-1.25) mg/dL Est GFR (CKD-EPI)AfAm (>60 ml/min/1.73 sqM) Est GFR (CKD-EPI)NonAf (>60 ml/min/1.73 sqM) Glucose (74-99) mg/dL Lactic Ac Sepsis Rflx Y Plasma Lactic Acid Mason 2.5 H* (0.7-2.0) mmol/L Calcium (8.4-10.2) mg/dL Phosphorus (2.5-4.5) mg/dL Magnesium (1.6-2.3) mg/dL Total Bilirubin (0.2-1.3) mg/dL AST (17-59) U/L ALT (4-49) U/L Alkaline Phosphatase (38-126) U/L Troponin I <0.012 (0.000-0.034) ng/mL Total Protein (6.3-8.2) g/dL Albumin (3.5-5.0) g/dL Serum Alcohol mg/dL - EKG Data -: EKG Interpreted by Me (EKG is A-fib 88 QRS 70 QTc 375) Disposition Clinical Impression: Alcoholic hepatitis, Acute hyponatremia Disposition: ADMITTED IP TO THIS HOSP Condition: Serious Is patient prescribed a controlled substance at d/c from ED?: No Time of Disposition: 21:05
[2023-12-31] MEDS ORDERED: LORazepam 1 MG TAB PO PRN ×3 (19:51)
[2023-12-31] MEDS ORDERED: LORazepam 2 MG/ML INJ IV PRN ×3 (19:51)
[2023-12-31] MEDS ORDERED: LORazepam 0.5 MG TAB PO PRN (19:51)
[2023-12-31 20:20] LABS: ALT 20 U/L (4-49); AST 33 U/L (17-59); African American GFR (CKD) >90 (>60 ml/min/1.73 sqM); Albumin 2.4 g/dL (3.5-5.0); Alcohol <10 mg/dL; Alkaline Phosphatase 65 U/L (38-126); Anion Gap 7 mmol/L; Blood Urea Nitrogen 11 mg/dL (9-20); Calcium 7.8 mg/dL (8.4-10.2); Carbon Dioxide 17 mmol/L (22-30); Chloride 93 mmol/L (98-107); Glucose 93 mg/dL (74-99); Non-African American GFR(CKD) >90 (>60 ml/min/1.73 sqM); Phosphorus 2.8 mg/dL (2.5-4.5); Potassium 5.2 mmol/L (3.5-5.1); Total Bilirubin 2.5 mg/dL (0.2-1.3)
[2023-12-31 20:39] LABS: Sodium 117 mmol/L (137-145)
[2023-12-31 20:43] LABS: HCT 28.2 % (39.0-53.0); HGB 9.4 gm/dL (13.0-17.5); MCH 31.8 pg (25.0-35.0); MCHC 33.3 g/dL (31.0-37.0); MCV 95.6 fL (80.0-100.0); Mean Platelet Volume 7.8; RBC 2.95 m/uL (4.30-5.90); RDW 15.8 % (11.5-15.5); WBC 4.5 k/uL (3.8-10.6)
[2023-12-31 20:44] LABS: INR 1.6 (<1.2); Partial Thromboplastin Time 35.7 sec (22.0-30.0); Prothrombin Time 16.6 sec (10.0-12.5)
[2023-12-31] MEDS ORDERED: MORPHINE SULFATE 4 MG/ML SYRINGE IV PRN (21:10)
[2023-12-31] MEDS ORDERED: NALOXONE 0.4 MG/ML 1 ML VIAL IV PRN (21:10)
[2023-12-31] MEDS ORDERED: ONDANSETRON 4 MG/2 ML VIAL IVP PRN (21:10)
[2023-12-31] MEDS: SODIUM CHLORIDE 0.9% 1,000 ML IV SCH (21:15)
[2023-12-31 21:38] LABS: Eosinophils # (M) 0.09 k/uL (0-0.7); Lymphocytes # (M) 0.23 k/uL (1.0-4.8); Monocytes # (M) 0.59 k/uL (0-1.0); Neutrophils % (M) 80 %; Nucleated Red Blood Cells 0 /100 WBC (0-0); Platelet Count 61 k/uL (150-450); Total Cells Counted 100
[2023-12-31 22:36] LABS: African American GFR (CKD) >90 (>60 ml/min/1.73 sqM); Anion Gap 7 mmol/L; Blood Urea Nitrogen 11 mg/dL (9-20); Calcium 7.7 mg/dL (8.4-10.2); Carbon Dioxide 15 mmol/L (22-30); Chloride 95 mmol/L (98-107); Glucose 76 mg/dL (74-99); Non-African American GFR(CKD) >90 (>60 ml/min/1.73 sqM)
[2023-12-31 22:37] LABS: Sodium 117 mmol/L (137-145)
[2024-01-01 08:19] LABS: ALT 18 U/L (4-49); African American GFR (CKD) >90 (>60 ml/min/1.73 sqM); Anion Gap 2 mmol/L; Blood Urea Nitrogen 10 mg/dL (9-20); Calcium 7.3 mg/dL (8.4-10.2); Carbon Dioxide 18 mmol/L (22-30); Chloride 97 mmol/L (98-107); Glucose 59 mg/dL (74-99); Non-African American GFR(CKD) >90 (>60 ml/min/1.73 sqM)
[2024-01-01 08:33] LABS: Sodium 117 mmol/L (137-145)
[2024-01-01 08:35] LABS: Albumin 2.1 g/dL (3.5-5.0); Total Protein 4.6 g/dL (6.3-8.2)
[2024-01-01 08:36] LABS: AST 54 U/L (17-59); Alkaline Phosphatase 50 U/L (38-126); Magnesium 1.9 mg/dL (1.6-2.3); Potassium 5.4 mmol/L (3.5-5.1); Total Bilirubin 2.9 mg/dL (0.2-1.3)
[2024-01-01 09:44] LABS: ALT 22 U/L (4-49); AST 38 U/L (17-59); African American GFR (CKD) >90 (>60 ml/min/1.73 sqM); Albumin 2.7 g/dL (3.5-5.0); Alkaline Phosphatase 79 U/L (38-126); Anion Gap 9 mmol/L; Blood Urea Nitrogen 11 mg/dL (9-20); Calcium 7.8 mg/dL (8.4-10.2); Carbon Dioxide 16 mmol/L (22-30); Chloride 94 mmol/L (98-107); Glucose 85 mg/dL (74-99); Magnesium 1.9 mg/dL (1.6-2.3); Non-African American GFR(CKD) >90 (>60 ml/min/1.73 sqM); Potassium 4.6 mmol/L (3.5-5.1); Total Bilirubin 3.3 mg/dL (0.2-1.3); Total Protein 5.4 g/dL (6.3-8.2)
[2024-01-01 09:51] LABS: Basophils % (A) 1 %; Eosinophils # (A) 0.1 k/uL (0-0.7); Eosinophils % (A) 3 %; HCT 31.6 % (39.0-53.0); HGB 9.8 gm/dL (13.0-17.5); Hypochromasia Marked; Lymphocytes # (A) 0.2 k/uL (1.0-4.8); Lymphocytes % (A) 4 %; MCH 30.9 pg (25.0-35.0); MCV 99.4 fL (80.0-100.0); Macrocytosis Slight; Mean Platelet Volume 8.2; Monocytes # (A) 0.3 k/uL (0-1.0); Monocytes % (A) 6 %; Neutrophils % (A) 83 %; RBC 3.18 m/uL (4.30-5.90); RDW 15.3 % (11.5-15.5); WBC 4.8 k/uL (3.8-10.6)
[2024-01-01 10:02] LABS: Sodium 119 mmol/L (137-145)
[2024-01-01 10:11] LABS: Platelet Count 97 k/uL (150-450)
[2024-01-01] MEDS: PANTOPRAZOLE 40 MG/10 ML VIAL IV SCH (10:25)
[2024-01-01] MEDS: FUROSEMIDE 10 MG/ML 4 ML VIAL IV SCH (10:26)
--- NOTE | 2024-01-01 11:02 | P.NPCON ---
History of Present Illness - Reason for Consult hyponatremia - History of Present Illness Reason for consultation: Hyponatremia History of present illness: Patient is a 63-year-old male seen in renal consultation for hyponatremia. Patient had blood work done outpatient and was told to go to the hospital due to low sodium level. Patient has history of alcohol induced liver cirrhosis. Patient states he currently does not drink alcohol. He does get weekly paracentesis and last paracentesis was December 31, 2023 with 5.8 L drained. Patient received normal saline at 75 cc an hour overnight with no improvement in sodium level. He denies excessive fluid intake. Denies history of cancer. Denies chest pain or shortness of breath. Denies gross hematuria or dysuria. States he was taking Lasix as well as spironolactone at home. No thiazide diuretics. Vital signs are stable. General: No acute distress. HEENT: Head exam is unremarkable. LUNGS: No audible rhonchi or wheezes. HEART: Rate and Rhythm are regular. ABDOMEN: Nontender. EXTREMITITES: 1+ edema. Past Medical History Past Medical History: Hypertension, Liver Disease, Pneumonia Additional Past Medical History / Comment(s): Liver cirrhosis, splenomegaly, pancreatitis-pt states pancreatitis was side effect from Lisinopril, pt denies hx of alcoholism/drinking heavily, cellulitis with sepsis, ASCITES History of Any Multi-Drug Resistant Organisms: None Reported Past Surgical History: No Surgical Hx Reported Additional Past Surgical History / Comment(s): dental extraction, cataract bilateral - Pt states he was awake for both procedure and has never had general anesthesia Past Anesthesia/Blood Transfusion Reactions: No Reported Reaction, Unable to Obtain Additional Past Anesthesia/Blood Transfusion Reaction / Comment(s): Pt has never had anesthesia Past Psychological History: No Psychological Hx Reported Smoking Status: Never smoker Past Alcohol Use History: None Reported Past Drug Use History: None Reported - Past Family History Mother Family Medical History: Hypertension Additional Family Medical History / Comment(s): Mother lived to be 91 yrs old. Father Family Medical History: CVA/TIA Additional Family Medical History / Comment(s): Father of a CVA at the age of 65yrs. Son(s) Family Medical History: No Reported History Daughter(s) Family Medical History: No Reported History Medications and Allergies Home Medications Medication Instructions Recorded Confirmed Type Pantoprazole [Protonix] 40 mg PO AC-BRKFST tab 06/22/21 12/31/23 Rx Midodrine [ProAmatine] 5 mg PO TID 07/13/21 12/31/23 History Folic Acid 1 mg PO DAILY tab 07/18/21 12/31/23 Rx Potassium Chloride ER [K-Dur 20] 20 meq PO DAILY tablet 07/18/21 12/31/23 Rx Albuterol Inhaler [Ventolin Hfa 2 puff INHALATION RT-TID PRN 08/06/23 12/31/23 History Inhaler] Furosemide [Lasix] 40 mg PO DAILY tab 08/27/23 12/31/23 Rx Spironolactone [Aldactone] 25 mg PO BID tab 08/27/23 12/31/23 Rx Sodium Chloride Tab 1 gm PO BID 09/17/23 12/31/23 History traZODone HCL 150 mg PO HS 12/31/23 12/31/23 History Allergies Allergy/AdvReac Type Severity Reaction Status Date / Time lisinopril AdvReac causes Verified 12/31/23 20:06 pancreatitis Physical Exam Vitals: Vital Signs Temp Pulse Resp BP Pulse Ox 01/01/24 08:00 81 21 106/64 98 01/01/24 06:00 75 18 97/54 100 01/01/24 05:58 98.2 F 77 18 97/54 95 01/01/24 05:00 66 16 89/64 99 01/01/24 03:00 75 16 99/63 99 01/01/24 01:00 75 16 98/55 100 01/01/24 00:00 76 16 90/60 99 12/31/23 23:14 76 16 110/71 95 12/31/23 22:00 75 16 93/60 99 12/31/23 21:10 81 13 104/39 96 12/31/23 20:20 80 15 95/62 100 12/31/23 19:42 84 16 95/58 95 12/31/23 19:17 98.6 F 63 18 91/55 98 Intake and Output 12/31/23 01/01/24 01/01/24 22:59 06:59 14:59 Other: Weight 81.647 kg Results - Lab Results Most recent lab results Calcium 7.8 mg/dL (8.4-10.2) L 01/01/24 09:17 Phosphorus 3.0 mg/dL (2.5-4.5) 01/01/24 07:49 Magnesium 1.9 mg/dL (1.6-2.3) 01/01/24 09:17 01/01/24 09:17 01/01/24 09:17 Assessment and Plan Plan: Assessment: 1. Hyponatremia. Hypervolemic. No improvement with IV fluids. Sodium level 117 on admission and was up to 119 this morning. TSH normal. 2. Alcohol induced liver cirrhosis. 3. Ascites status post paracentesis December 31, 2023 with 5.8 L drained. 4. Metabolic acidosis secondary to IV fluids. Plan: Hep-Lock IV fluids. Resume Aldactone 25 mg twice daily. Add IV Lasix 40 mg once daily. Check bladder scan to rule out urinary retention. Follow-up urine studies. Repeat sodium level this afternoon. Thank you for the consultation. I will continue to follow the patient with you during his hospital stay.
[2024-01-01] MEDS: SPIRONOLACTONE 25 MG TAB PO SCH (11:41)
[2024-01-01] MEDS ORDERED: ALBUTEROL NEBULIZED 2.5 MG/3 ML INHALATION PRN (13:05)
[2024-01-01 16:38] LABS: African American GFR (CKD) >90 (>60 ml/min/1.73 sqM); Anion Gap 5 mmol/L; Blood Urea Nitrogen 11 mg/dL (9-20); Calcium 7.7 mg/dL (8.4-10.2); Carbon Dioxide 19 mmol/L (22-30); Chloride 96 mmol/L (98-107); Glucose 76 mg/dL (74-99); Non-African American GFR(CKD) >90 (>60 ml/min/1.73 sqM); Sodium 120 mmol/L (137-145)
[2024-01-01] MEDS: FUROSEMIDE 10 MG/ML 4 ML VIAL IV STA (16:56)
[2024-01-01] MEDS: MIDODRINE 5 MG TAB PO SCH (16:57)
[2024-01-01] MEDS: traZODone HCL 50 MG TAB PO SCH (20:37)
[2024-01-01] MEDS: SODIUM CHLORIDE TAB 1 GM TAB PO SCH (21:21)
[2024-01-02] MEDS: TOLVAPTAN 15 MG TABLET PO ONE ×3 (00:34→20:34)
[2024-01-02] MEDS ORDERED: PANTOPRAZOLE 40 MG TABLET PO SCH (07:30)
[2024-01-02] MEDS: POTASSIUM CHLORIDE ER 20 MEQ TAB.ER PO SCH (08:07)
[2024-01-02] MEDS: FOLIC ACID 1 MG TAB PO SCH (08:07)
[2024-01-02 09:34] LABS: Basophils % (A) 0 %; Eosinophils # (A) 0.1 k/uL (0-0.7); Eosinophils % (A) 3 %; HCT 32.6 % (39.0-53.0); HGB 10.7 gm/dL (13.0-17.5); Hypochromasia Slight; Lymphocytes # (A) 0.2 k/uL (1.0-4.8); Lymphocytes % (A) 6 %; MCH 31.9 pg (25.0-35.0); MCHC 32.8 g/dL (31.0-37.0); MCV 97.4 fL (80.0-100.0); Macrocytosis Slight; Mean Platelet Volume 8.3; Monocytes # (A) 0.2 k/uL (0-1.0); Monocytes % (A) 7 %; Neutrophils # (A) 2.5 k/uL (1.3-7.7); Neutrophils % (A) 82 %; RBC 3.35 m/uL (4.30-5.90); RDW 15.7 % (11.5-15.5); WBC 3.1 k/uL (3.8-10.6)
[2024-01-02 09:46] LABS: Platelet Count 73 k/uL (150-450)
[2024-01-02 10:37] LABS: ALT 22 U/L (4-49); African American GFR (CKD) >90 (>60 ml/min/1.73 sqM); Albumin 2.3 g/dL (3.5-5.0); Anion Gap 9 mmol/L; Blood Urea Nitrogen 12 mg/dL (9-20); Calcium 7.8 mg/dL (8.4-10.2); Carbon Dioxide 13 mmol/L (22-30); Chloride 99 mmol/L (98-107); Glucose 103 mg/dL (74-99); Non-African American GFR(CKD) >90 (>60 ml/min/1.73 sqM); Sodium 121 mmol/L (137-145); Total Bilirubin 2.4 mg/dL (0.2-1.3)
[2024-01-02 10:43] LABS: AST 49 U/L (17-59); Alkaline Phosphatase 83 U/L (38-126); Magnesium 1.9 mg/dL (1.6-2.3); Potassium 3.9 mmol/L (3.5-5.1)
--- NOTE | 2024-01-02 10:53 | P.PN ---
Subjective Patient is seen in follow-up for hyponatremia. Sodium level 121 this morning. Received a dose of Samsca last night. Nonoliguric. Has Cornell catheter. Vital signs are stable. General: No acute distress. HEENT: Head exam is unremarkable. LUNGS: No audible rhonchi or wheezes. HEART: Rate and Rhythm are regular. ABDOMEN: Nontender. EXTREMITITES: Trace edema. Objective - Vital Signs Vital signs: Vital Signs Temp 98.0 F 01/02/24 08:10 Pulse 89 01/02/24 08:10 Resp 16 01/02/24 08:10 BP 103/66 01/02/24 08:10 Pulse Ox 97 01/02/24 08:10 FiO2 Intake & Output 01/01/24 01/02/24 01/02/24 18:59 06:59 18:59 Intake Total 360 Output Total 1500 1000 0 Balance -1500 -1000 360 Weight 82.2 kg Intake: Oral 360 Output: Gastric Drainage 0 Urine 1500 1000 0 Uretheral (Cornell) 500 Stool 0 Urine/Stool Mix 0 Emesis 0 Oral Regurgitation 0 Other 0 Other: Voiding Method Indwelling Catheter Indwelling Catheter # Voids 0 # Bowel Movements 0 - Labs CBC & Chem 7: 01/02/24 08:36 01/02/24 08:36 Labs: Abnormal Lab Results - Last 24 Hours (Table) 01/01/24 01/01/24 01/01/24 Range/Units 10:29 15:49 19:57 WBC (3.8-10.6) k/uL RBC (4.30-5.90) m/uL Hgb (13.0-17.5) gm/dL Hct (39.0-53.0) % RDW (11.5-15.5) % Plt Count (150-450) k/uL Lymphocytes # (1.0-4.8) k/uL Sodium 120 L 118 L* (137-145) mmol/L Chloride 96 L (98-107) mmol/L Carbon Dioxide 19 L (22-30) mmol/L Glucose (74-99) mg/dL Calcium 7.7 L (8.4-10.2) mg/dL Total Bilirubin (0.2-1.3) mg/dL Total Protein (6.3-8.2) g/dL Albumin (3.5-5.0) g/dL Ur Random Sodium <20 L (40-220) mmol/L 01/02/24 01/02/24 Range/Units 08:36 08:36 WBC 3.1 L (3.8-10.6) k/uL RBC 3.35 L (4.30-5.90) m/uL Hgb 10.7 L (13.0-17.5) gm/dL Hct 32.6 L (39.0-53.0) % RDW 15.7 H (11.5-15.5) % Plt Count 73 L (150-450) k/uL Lymphocytes # 0.2 L (1.0-4.8) k/uL Sodium 121 L (137-145) mmol/L Chloride (98-107) mmol/L Carbon Dioxide 13 L (22-30) mmol/L Glucose 103 H (74-99) mg/dL Calcium 7.8 L (8.4-10.2) mg/dL Total Bilirubin 2.4 H (0.2-1.3) mg/dL Total Protein 5.0 L (6.3-8.2) g/dL Albumin 2.3 L (3.5-5.0) g/dL Ur Random Sodium (40-220) mmol/L Assessment and Plan Plan: Assessment: 1. Hyponatremia. Hypervolemic. No improvement with IV fluids. Sodium level 117 on admission and is 121 this morning. TSH normal. Urine sodium less than 20 and urine osmolality 525. 2. Alcohol induced liver cirrhosis. 3. Ascites status post paracentesis December 31, 2023 with 5.8 L drained. 4. Metabolic acidosis secondary to IV fluids and underlying compensation for respiratory alkalosis due to cirrhosis. Plan: Maintain Aldactone. Repeat Samsca 7.5 mg once now. Maintain IV Lasix. Add 1500 cc fluid restriction. Maintain Cornell catheter for now. Repeat sodium level this evening.
[2024-01-02] MEDS: SODIUM BICARBONATE TAB 650 MG TAB PO SCH (11:29)
[2024-01-02] MEDS: SODIUM BICARB 8.4% 50 ML SYR (1 MEQ/ML) IV STA (11:29)
--- NOTE | 2024-01-02 16:45 | P.HPIM ---
History of Present Illness H&P Date: 01/01/24 Chief Complaint: severe hyponatremia HISTORY OF PRESENT ILLNESS: This is a 63 year old male with a previous medical history significant for hypertension and hypertensive cardiovascular disease, hyperlipidemia, history of pancreatitis in the past along with prior history of sepsis due to cellulitis about 2 year ago, history of chronic alcoholic hepatitis with alc oholic liver cirrhosis for which he has been following with Dr. Smith as an outpatient and has been getting a weekly paracentesis at [facility] he just had 1 Friday and he had a laboratory evaluation prior to that that showed a sodium of 118 patient was contacted and he was sent to the emergency department for evaluation patient was found to have a sodium level of 117, initially was given a bolus of IV fluid resuscitation, his sodium went down in 116, therefore he was started on Lasix 40 mg IV push every 12 hours, he had a Cornell catheter placed and, his serum osmolality was very low at 245, patient was admitted to the hospital with nephrology consultation, patient was placed on La six 40 mg IV push every 12 hours, I restarted the patient back on his salt tablet 1 g orally twice every day, his sodium is up to 119 we will continue to follow the patient very closely, during his hospital stay. Patient does not appear to have any mental status changes at this time, he denies any chest pain, or any shortness of breath at this time, he has minimal swelling both lower extremities. REVIEW OF SYSTEMS: Constitutional: No documented fever, no chills, no night sweats. No weight c hange. positive for weakness, positive for fatigue or lethargy. No daytime sleepiness. HEENT: No headache. No blurred vision or double vision, no loss of vision. No loss of Hearing, no ringing in the ears, no dizziness. No nasal drainage or congestion. No epistaxis. No sore throat. Lungs: No shortness of breath, no cough, no sputum production. No wheezing. Reports dyspnea with activity. Cardiovascular: No chest pain, positive for lower extremity edema. No palpitations. No paroxysmal nocturnal dyspnea. No orthopnea. No lightheadedness or dizziness. No syncopal episodes. Abdominal: Reports abdominal pain. No nausea, vomiting. positive for diarrhea. No constipation. No bloody or tarry stools reports loss of appetite. Genitourinary: No dysuria, increased frequency, urgency. No urinary retention. Musculoskeletal: No myalgias. positive for muscle weakness, no gait dysfuncti on, no frequent falls. No back pain. No neck pain. Integumentary: No wounds, no lesions. No rash or pruritus. Positive for unusual bruising. No change in hair or nails. Positive for ecchymosis of the right knee. Neurologic: No aphasia. No facial droop. No change in mentation. No head injury. No headache. No paralysis. No paresthesia. Psychiatric: No depression. No anxiety. No mood swings. Endocrine: No abnormal blood sugars. No weight change. PAST MEDICAL HISTORY: Hypertension and hypertensive cardiovascular disease Hyperlipidemia. History of pancreatitis Chronic alcoholic hepatitis Liver cirrhosis with ascites status post weekly paracentesis. GERD. osteoarthritis. PAST SURGICAL HISTORY: No surgery. SOCIAL HISTORY: Patient is a lifelong nonsmoker, he drinks about 3-4 beers on a daily basis, was counseled about alcohol cessation many many times in the past unfortunately he continues to drink despite his alcoholic liver cirrhosis. He denies any marijuana use or abuse he denies any drug use or abuse. FAMILY HISTORY: Mother at age of 91 from old age and she had a history of hypertension, father at age 65 from CVA. Patient has 2 sons no major medical problems, and one daughter no major medical problems. PHYSICAL EXAMINATION: General: 63-year-old male laying down in bed in no apparent distress HEENT: Head is atraumatic, normocephalic, pupils were equal round reactive to light and recommendation, extraocular muscle movement were intact, sclera are deeply icteric, conjunctivae were pale, mucous membranes of the mouth are somewhat dry. Neck: Supple, no JVP, normal carotid upstroke bilaterally, no lymphadenopathy. Chest: Decreased breath sounds at the bases, few rhonchi, no expiratory wheezes, no chest wall tenderness, no intercostal retractions. Heart: First heart sound is normal, second heart sounds normal there is BLANCA 2/6 located at the left sternal border Abdomen: Soft, distended mild ascites, nonspecific tenderness, positive bowel sounds. Extremities: There is +1 edema no calf tenderness DP +2 bilaterally. Neurologic examination: Patient is awake alert and oriented X 3, cranial nerves II-12 appear grossly intact, muscle power were 5 out of 5 in upper extremities and 5 out of 5 in bilateral lower extremities, deep tendon reflexes normal bilaterally. ASSESSMENT AND PLAN: 1. 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 Continue Lasix 40 mg IV push every 12 hours, continue patient on spironolactone 12.5 mg once every day, his sodium osmolality was 245, patient was started on salt tablet 1 g orally twice every day, continue monitor the sodium level very closely, nephrology consultation appreciated. 2. Chronic liver cirrhosis with recurrence ascites. Status post weekly paracentesis. The last 1 was done in Friday. Continue to monitor the patient very closely. Continue Lasix as well as spironolactone. 3. Hypertension and hypertensive cardiovascular disease. Currently normotensive patient has been off his antihypertensive medications. 4. GERD. Continue patient on Protonix 40 mg orally once every day. 5. DVT prophylaxis. Bilateral knee-high TAMI hose. 6. Orthostatic hypotension continue patient on midodrine 5 mg orally twice every day. 7. Medical debility due to underlying liver cirrhosis physical therapy evaluation. 8. Admitted to inpatient. Estimate a length of stay 2 midnights. 9. Patient is full code. Past Medical History Past Medical History: Hypertension, Liver Disease, Pneumonia Additional Past Medical History / Comment(s): Liver cirrhosis, splenomegaly, pancreatitis-pt states pancreatitis was side effect from Lisinopril, pt denies hx of alcoholism/drinking heavily, cellulitis with sepsis, ASCITES History of Any Multi-Drug Resistant Organisms: None Reported Past Surgical History: No Surgical Hx Reported Additional Past Surgical History / Comment(s): dental extraction, cataract bilateral - Pt states he was awake for both procedure and has never had general anesthesia Past Anesthesia/Blood Transfusion Reactions: No Reported Reaction, Unable to Obtain Additional Past Anesthesia/Blood Transfusion Reaction / Comment(s): Pt has never had anesthesia Past Psychological History: No Psychological Hx Reported Smoking Status: Never smoker Past Alcohol Use History: None Reported Past Drug Use History: None Reported - Past Family History Mother Family Medical History: Hypertension Additional Family Medical History / Comment(s): Mother lived to be 91 yrs old. Father Family Medical History: CVA/TIA Additional Family Medical History / Comment(s): Father of a CVA at the age of 65yrs. Son(s) Family Medical History: No Reported History Daughter(s) Family Medical History: No Reported History Medications and Allergies Home Medications Medication Instructions Recorded Confirmed Type Pantoprazole [Protonix] 40 mg PO AC-BRKFST tab 06/22/21 12/31/23 Rx Midodrine [ProAmatine] 5 mg PO TID 07/13/21 12/31/23 History Folic Acid 1 mg PO DAILY tab 07/18/21 12/31/23 Rx Potassium Chloride ER [K-Dur 20] 20 meq PO DAILY tablet 07/18/21 12/31/23 Rx Albuterol Inhaler [Ventolin Hfa 2 puff INHALATION RT-TID PRN 08/06/23 12/31/23 History Inhaler] Furosemide [Lasix] 40 mg PO DAILY tab 08/27/23 12/31/23 Rx Spironolactone [Aldactone] 25 mg PO BID tab 08/27/23 12/31/23 Rx Sodium Chloride Tab 1 gm PO BID 09/17/23 12/31/23 History traZODone HCL 150 mg PO HS 12/31/23 12/31/23 History Allergies Allergy/AdvReac Type Severity Reaction Status Date / Time lisinopril AdvReac causes Verified 12/31/23 20:06 pancreatitis Physical Exam Vitals: Vital Signs Temp Pulse Resp BP Pulse Ox 01/01/24 11:00 87 18 107/65 98 01/01/24 08:00 81 21 106/64 98 01/01/24 06:00 75 18 97/54 100 01/01/24 05:58 98.2 F 77 18 97/54 95 01/01/24 05:00 66 16 89/64 99 01/01/24 03:00 75 16 99/63 99 01/01/24 01:00 75 16 98/55 100 01/01/24 00:00 76 16 90/60 99 12/31/23 23:14 76 16 110/71 95 12/31/23 22:00 75 16 93/60 99 12/31/23 21:10 81 13 104/39 96 12/31/23 20:20 80 15 95/62 100 12/31/23 19:42 84 16 95/58 95 12/31/23 19:17 98.6 F 63 18 91/55 98 Intake and Output 12/31/23 01/01/24 01/01/24 22:59 06:59 14:59 Other: Weight 81.647 kg Results CBC & Chem 7: 01/02/24 08:36 01/02/24 08:36 Labs: Abnormal Lab Results - Last 24 Hours (Table) 12/31/23 12/31/23 12/31/23 Range/Units 19:52 19:52 19:52 RBC 2.95 L (4.30-5.90) m/uL Hgb 9.4 L (13.0-17.5) gm/dL Hct 28.2 L (39.0-53.0) % RDW 15.8 H (11.5-15.5) % Plt Count 61 L (150-450) k/uL Lymphocytes # (1.0-4.8) k/uL Lymphocytes # (Manual) 0.23 L (1.0-4.8) k/uL PT 16.6 H (10.0-12.5) sec INR 1.6 H (<1.2) APTT 35.7 H (22.0-30.0) sec Sodium 117 L* (137-145) mmol/L Potassium 5.2 H (3.5-5.1) mmol/L Chloride 93 L (98-107) mmol/L Carbon Dioxide 17 L (22-30) mmol/L Glucose (74-99) mg/dL Osmolality (275-295) mOsm/kg Plasma Lactic Acid Mason (0.7-2.0) mmol/L Calcium 7.8 L (8.4-10.2) mg/dL Total Bilirubin 2.5 H (0.2-1.3) mg/dL Total Protein 5.0 L (6.3-8.2) g/dL Albumin 2.4 L (3.5-5.0) g/dL 12/31/23 12/31/23 01/01/24 Range/Units 19:52 22:04 07:49 RBC (4.30-5.90) m/uL Hgb (13.0-17.5) gm/dL Hct (39.0-53.0) % RDW (11.5-15.5) % Plt Count (150-450) k/uL Lymphocytes # (1.0-4.8) k/uL Lymphocytes # (Manual) (1.0-4.8) k/uL PT (10.0-12.5) sec INR (<1.2) APTT (22.0-30.0) sec Sodium 117 L* 117 L* (137-145) mmol/L Potassium 5.4 H (3.5-5.1) mmol/L Chloride 95 L 97 L (98-107) mmol/L Carbon Dioxide 15 L 18 L (22-30) mmol/L Glucose 59 L (74-99) mg/dL Osmolality 247 A* (275-295) mOsm/kg Plasma Lactic Acid Mason 2.5 H* (0.7-2.0) mmol/L Calcium 7.7 L 7.3 L (8.4-10.2) mg/dL Total Bilirubin 2.9 H (0.2-1.3) mg/dL Total Protein 4.6 L (6.3-8.2) g/dL Albumin 2.1 L (3.5-5.0) g/dL 01/01/24 01/01/24 01/01/24 Range/Units 09:17 09:17 09:17 RBC 3.18 L (4.30-5.90) m/uL Hgb 9.8 L (13.0-17.5) gm/dL Hct 31.6 L (39.0-53.0) % RDW (11.5-15.5) % Plt Count 97 L D (150-450) k/uL Lymphocytes # 0.2 L (1.0-4.8) k/uL Lymphocytes # (Manual) (1.0-4.8) k/uL PT (10.0-12.5) sec INR (<1.2) APTT (22.0-30.0) sec Sodium 119 L* 119 L* (137-145) mmol/L Potassium (3.5-5.1) mmol/L Chloride 94 L (98-107) mmol/L Carbon Dioxide 16 L (22-30) mmol/L Glucose (74-99) mg/dL Osmolality (275-295) mOsm/kg Plasma Lactic Acid Amson (0.7-2.0) mmol/L Calcium 7.8 L (8.4-10.2) mg/dL Total Bilirubin 3.3 H (0.2-1.3) mg/dL Total Protein 5.4 L (6.3-8.2) g/dL Albumin 2.7 L (3.5-5.0) g/dL
--- NOTE | 2024-01-02 16:46 | P.PN ---
Subjective Progress Note Date: 01/02/24 HISTORY OF PRESENT ILLNESS: This is a 63 year old male with a previous medical history significant for hypertension and hypertensive cardiovascular disease, hyperlipidemia, history of pancreatitis in the past along with prior history of sepsis due to cellulitis about 2 year ago, history of chronic alcoholic hepatitis with alcoholic liver cirrhosis for which he has been following with Dr. Smith as an outpatient and has been getting a weekly paracentesis at [facility] he just had 1 Friday and he had a laboratory evaluation prior to that that showed a sodium of 118 patient was contacted and he was sent to the emergency department for evaluation patient was found to have a sodium level of 117, initially was given a bolus of IV fluid resuscitation, his sodium went down in 116, therefore he was started on Lasix 40 mg IV push every 12 hours, he had a Cornell catheter placed and, his serum osmolality was very low at 245, patient was admitted to the hospital with nephrology consultation, patient was placed on Lasix 40 mg IV push every 12 hours, I restarted the patient back on his salt tablet 1 g orally twice every day, his sodium is up to 119 we will continue to follow the patient very closely, during his hospital stay. Patient does not appear to have any mental status changes at this time, he denies any chest pain, or any shortness of breath at this time, he has minimal swelling both lower extremities. 01/01: Patient is laying down in bed in no apparent distress, he denies any chest pain, shortness of breath, he has been receiving Lasix, he has been receiving spironolactone and salt tablet, he was given Samsca 7.5 mg x 1 today and 1 yesterday., repeat the sodium level tonight, patient continues to have a Cornell catheter in place, will take his Cornell catheter out tomorrow morning, continue to monitor the patient electrolyte very closely, continue monitor the patient CBC, patient is dependent on paracentesis on a weekly basis the last 1 was done in Friday we will continue to follow the patient very closely patient is eager to get out of the hospital. REVIEW OF SYSTEMS: Constitutional: No documented fever, no chills, no night sweats. No weight change. positive for weakness, positive for fatigue or lethargy. No daytime sleepiness. HEENT: No headache. No blurred vision or double vision, no loss of vision. No loss of Hearing, no ringing in the ears, no dizziness. No nasal drainage or congestion. No epistaxis. No sore throat. Lungs: No shortness of breath, no cough, no sputum production. No wheezing. Reports dyspnea with activity. Cardiovascular: No chest pain, positive for lower extremity edema. No palpitations. No paroxysmal nocturnal dyspnea. No orthopnea. No lightheadedness or dizziness. No syncopal episodes. Abdominal: Reports abdominal pain. No nausea, vomiting. positive for diarrhea. No constipation. No bloody or tarry stools reports loss of appetite. Genitourinary: No dysuria, increased frequency, urgency. No urinary retention. Musculoskeletal: No myalgias. positive for muscle weakness, no gait dysfunction, no frequent falls. No back pain. No neck pain. Integumentary: No wounds, no lesions. No rash or pruritus. Positive for unusual bruising. No change in hair or nails. Positive for ecchymosis of the right knee. Neurologic: No aphasia. No facial droop. No change in mentation. No head injury. No headache. No paralysis. No paresthesia. Psychiatric: No depression. No anxiety. No mood swings. Endocrine: No abnormal blood sugars. No weight change. PHYSICAL EXAMINATION: General: 63-year-old male laying down in bed in no apparent distress HEENT: Head is atraumatic, normocephalic, pupils were equal round reactive to light and recommendation, extraocular muscle movement were intact, sclera are deeply icteric, conjunctivae were pale, mucous membranes of the mouth are somewhat dry. Neck: Supple, no JVP, normal carotid upstroke bilaterally, no lymphadenopathy. Chest: Decreased breath sounds at the bases, few rhonchi, no expiratory wheezes, no chest wall tenderness, no intercostal retractions. Heart: First heart sound is normal, second heart sounds normal there is BLANCA 2/6 located at the left sternal border Abdomen: Soft, distended mild ascites, nonspecific tenderness, positive bowel sounds. Extremities: There is +1 edema no calf tenderness DP +2 bilaterally. Neurologic examination: Patient is awake alert and oriented X 3, cranial nerves II-12 appear grossly intact, muscle power were 5 out of 5 in upper extremities and 5 out of 5 in bilateral lower extremities, deep tendon reflexes normal bilaterally. ASSESSMENT AND PLAN: 1. 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 Continue Lasix 40 mg IV push every 24 hours, continue patient on spironolactone 25 mg twice every day, his sodium osmolality was 245, patient was started on sodium bicarbonate 650 mg orally twice every day, continue monitor the sodium level very closely, nephrology consultation appreciated. Patient did receive 1 dose of Samsca 7.5 mg p.o. x 1 2. Chronic liver cirrhosis with recurrence ascites. Status post weekly paracentesis. The last 1 was done in Friday. Continue to monitor the patient very closely. Continue Lasix as well as spironolactone. 3. Hypertension and hypertensive cardiovascular disease. Currently normotensive patient has been off his antihypertensive medications. 4. GERD. Continue patient on Protonix 40 mg orally once every day. 5. DVT prophylaxis. Bilateral knee-high TAMI hose. 6. Orthostatic hypotension continue patient on midodrine 5 mg orally 3 times every day. 7. Medical debility due to underlying liver cirrhosis physical therapy evaluation. Objective - Vital Signs Vital signs: Vital Signs Temp 97.9 F 01/02/24 16:00 Pulse 77 01/02/24 16:00 Resp 18 01/02/24 16:00 BP 98/60 01/02/24 16:00 Pulse Ox 100 01/02/24 16:00 FiO2 Intake & Output 01/01/24 01/02/24 01/02/24 18:59 06:59 18:59 Intake Total 480 Output Total 1500 1000 700 Balance -1500 -1000 -220 Weight 82.2 kg Intake: Oral 480 Output: Gastric Drainage 0 Urine 1500 1000 700 Uretheral (Cornell) 500 Stool 0 Urine/Stool Mix 0 Emesis 0 Oral Regurgitation 0 Other 0 Other: Voiding Method Indwelling Catheter Indwelling Catheter # Voids 0 # Bowel Movements 0 - Labs CBC & Chem 7: 01/02/24 08:36 01/02/24 08:36 Labs: Abnormal Lab Results - Last 24 Hours (Table) 01/01/24 01/01/24 01/02/24 Range/Units 10:29 19:57 08:36 WBC (3.8-10.6) k/uL RBC (4.30-5.90) m/uL Hgb (13.0-17.5) gm/dL Hct (39.0-53.0) % RDW (11.5-15.5) % Plt Count (150-450) k/uL Lymphocytes # (1.0-4.8) k/uL Sodium 118 L* 121 L (137-145) mmol/L Carbon Dioxide 13 L (22-30) mmol/L Glucose 103 H (74-99) mg/dL Calcium 7.8 L (8.4-10.2) mg/dL Total Bilirubin 2.4 H (0.2-1.3) mg/dL Total Protein 5.0 L (6.3-8.2) g/dL Albumin 2.3 L (3.5-5.0) g/dL Ur Random Sodium <20 L (40-220) mmol/L 01/02/24 Range/Units 08:36 WBC 3.1 L (3.8-10.6) k/uL RBC 3.35 L (4.30-5.90) m/uL Hgb 10.7 L (13.0-17.5) gm/dL Hct 32.6 L (39.0-53.0) % RDW 15.7 H (11.5-15.5) % Plt Count 73 L (150-450) k/uL Lymphocytes # 0.2 L (1.0-4.8) k/uL Sodium (137-145) mmol/L Carbon Dioxide (22-30) mmol/L Glucose (74-99) mg/dL Calcium (8.4-10.2) mg/dL Total Bilirubin (0.2-1.3) mg/dL Total Protein (6.3-8.2) g/dL Albumin (3.5-5.0) g/dL Ur Random Sodium (40-220) mmol/L
[2024-01-02 18:21] LABS: African American GFR (CKD) >90 (>60 ml/min/1.73 sqM); Anion Gap 7 mmol/L; Blood Urea Nitrogen 12 mg/dL (9-20); Calcium 7.7 mg/dL (8.4-10.2); Carbon Dioxide 16 mmol/L (22-30); Chloride 98 mmol/L (98-107); Glucose 135 mg/dL (74-99); Non-African American GFR(CKD) >90 (>60 ml/min/1.73 sqM); Potassium 3.8 mmol/L (3.5-5.1); Sodium 121 mmol/L (137-145)
[2024-01-02] MEDS: POTASSIUM CHLORIDE ER 20 MEQ TAB.ER PO STA (20:33)
[2024-01-02] MEDS: SODIUM BICARB 8.4% 50 ML SYR (1 MEQ/ML) IV ONE (20:34)
[2024-01-03] MEDS: PANTOPRAZOLE 40 MG TABLET PO SCH (06:36)
[2024-01-03 07:29] LABS: Basophils % (A) 0 %; Eosinophils # (A) 0.1 k/uL (0-0.7); Eosinophils % (A) 3 %; HCT 27.9 % (39.0-53.0); HGB 9.4 gm/dL (13.0-17.5); Lymphocytes # (A) 0.2 k/uL (1.0-4.8); Lymphocytes % (A) 10 %; MCH 32.1 pg (25.0-35.0); MCHC 33.8 g/dL (31.0-37.0); MCV 94.8 fL (80.0-100.0); Mean Platelet Volume 8.2; Monocytes # (A) 0.3 k/uL (0-1.0); Monocytes % (A) 16 %; Neutrophils # (A) 1.3 k/uL (1.3-7.7); Neutrophils % (A) 68 %; RBC 2.94 m/uL (4.30-5.90); RDW 15.8 % (11.5-15.5)
[2024-01-03 07:39] LABS: Platelet Count 51 k/uL (150-450)
[2024-01-03 07:48] LABS: ALT 24 U/L (4-49); AST 38 U/L (17-59); African American GFR (CKD) >90 (>60 ml/min/1.73 sqM); Albumin 2.2 g/dL (3.5-5.0); Alkaline Phosphatase 67 U/L (38-126); Anion Gap 3 mmol/L; Blood Urea Nitrogen 11 mg/dL (9-20); Calcium 7.5 mg/dL (8.4-10.2); Carbon Dioxide 24 mmol/L (22-30); Chloride 94 mmol/L (98-107); Glucose 95 mg/dL (74-99); Magnesium 1.8 mg/dL (1.6-2.3); Non-African American GFR(CKD) >90 (>60 ml/min/1.73 sqM); Potassium 3.7 mmol/L (3.5-5.1); Sodium 121 mmol/L (137-145); Total Bilirubin 2.3 mg/dL (0.2-1.3); Total Protein 4.7 g/dL (6.3-8.2)
[2024-01-03] MEDS: TOLVAPTAN 15 MG TABLET PO ONE (10:40)
--- NOTE | 2024-01-03 10:47 | P.PN ---
Subjective Patient is seen in follow-up for hyponatremia. Sodium level stable at 121 this morning. Received a dose of Samsca last night. Nonoliguric. Has Cornell catheter. Vital signs are stable. General: No acute distress. HEENT: Head exam is unremarkable. LUNGS: No audible rhonchi or wheezes. HEART: Rate and Rhythm are regular. ABDOMEN: Nontender. EXTREMITITES: Trace edema. Objective - Vital Signs Vital signs: Vital Signs Temp 97.6 F 01/03/24 08:16 Pulse 94 01/03/24 08:31 Resp 17 01/03/24 08:16 BP 97/62 01/03/24 08:16 Pulse Ox 98 01/03/24 08:16 FiO2 Intake & Output 01/02/24 01/03/24 01/03/24 18:59 06:59 18:59 Intake Total 1883 Output Total 700 0 Balance 1183 0 Weight 80 kg Intake: Oral 1883 Output: Gastric Drainage 0 Urine 700 Stool 0 0 Urine/Stool Mix 0 Emesis 0 Oral Regurgitation 0 Other 0 Other: Voiding Method Indwelling Catheter Indwelling Catheter Indwelling Catheter # Voids 0 # Bowel Movements 0 - Labs CBC & Chem 7: 01/03/24 06:59 01/03/24 06:59 Labs: Abnormal Lab Results - Last 24 Hours (Table) 01/02/24 01/03/24 01/03/24 Range/Units 17:49 06:59 06:59 WBC 2.0 L (3.8-10.6) k/uL RBC 2.94 L (4.30-5.90) m/uL Hgb 9.4 L (13.0-17.5) gm/dL Hct 27.9 L (39.0-53.0) % RDW 15.8 H (11.5-15.5) % Plt Count 51 L (150-450) k/uL Lymphocytes # 0.2 L (1.0-4.8) k/uL Sodium 121 L 121 L (137-145) mmol/L Chloride 94 L (98-107) mmol/L Carbon Dioxide 16 L (22-30) mmol/L Glucose 135 H (74-99) mg/dL Calcium 7.7 L 7.5 L (8.4-10.2) mg/dL Total Bilirubin 2.3 H (0.2-1.3) mg/dL Total Protein 4.7 L (6.3-8.2) g/dL Albumin 2.2 L (3.5-5.0) g/dL Assessment and Plan Plan: Assessment: 1. Hyponatremia. Hypervolemic. No improvement with IV fluids. Sodium level 117 on admission and is stable at 121 this morning. TSH normal. Urine sodium less than 20 and urine osmolality 525. 2. Alcohol induced liver cirrhosis. 3. Ascites status post paracentesis December 31, 2023 with 5.8 L drained. 4. Metabolic acidosis secondary to IV fluids and underlying compensation for respiratory alkalosis due to cirrhosis. Improved. Plan: Maintain Aldactone. Samsca 15 mg once now. Maintain IV Lasix. Maintain 1500 cc fluid restriction. Maintain Cornell catheter for now. Repeat sodium level this evening.
--- NOTE | 2024-01-03 22:48 | P.PN ---
Subjective This is a 63 year old male with a previous medical history significant for hypertension and hypertensive cardiovascular disease, hyperlipidemia, history of pancreatitis in the past along with prior history of sepsis due to cellulitis about 2 year ago, history of chronic alcoholic hepatitis with alcoholic liver cirrhosis for which he has been following with Dr. Smith as an outpatient and has been getting a weekly paracentesis at [facility] he just had 1 Friday and he had a laboratory evaluation prior to that that showed a sodium of 118 patient was contacted and he was sent to the emergency department for evaluation patient was found to have a sodium level of 117, initially was given a bolus of IV fluid resuscitation, his sodium went down in 116, therefore he was started on Lasix 40 mg IV push every 12 hours, he had a Cornell catheter placed and, his serum osmolality was very low at 245, patient was admitted to the hospital with nephrology consultation, patient was placed on Lasix 40 mg IV push every 12 hours, I restarted the patient back on his salt tablet 1 g orally twice every day, his sodium is up to 119 we will continue to follow the patient very closely, during his hospital stay. Patient does not appear to have any mental status changes at this time, he denies any chest pain, or any shortness of breath at this time, he has minimal swelling both lower extremities. 01/01: Patient is laying down in bed in no apparent distress, he denies any chest pain, shortness of breath, he has been receiving Lasix, he has been receiving spironolactone and salt tablet, he was given Samsca 7.5 mg x 1 today and 1 yes ., repeat the sodium level tonight, patient continues to have a Cornell catheter in place, will take his Cornell catheter out tomorrow morning, continue to monitor the patient electrolyte very closely, continue monitor the patient CBC, patient is dependent on paracentesis on a weekly basis the last 1 was done in Friday we will continue to follow the patient very closely patient is eager to get out of the hospital. 01/02 Patient sitting up in bed, eating his meal with good appetite. Denies any specific symptoms and eager to go home. Sodium was still low this morning 04 26-04 27, he status post Samsca, his sodium improved later on to 123 Patient agrees to stay for hyponatremia treatment Blood pressure is borderline with systolic 80s to 90s, serum cortisol checked 2 days ago was not low at 9.0. Also patient on midodrine 5 mg Objective - Vital Signs Vital signs: Vital Signs Temp 97.6 F 01/03/24 08:16 Pulse 97 01/03/24 11:22 Resp 17 01/03/24 11:22 BP 81/58 01/03/24 11:22 Pulse Ox 100 01/03/24 11:22 FiO2 Intake & Output 01/02/24 01/03/24 01/03/24 18:59 06:59 18:59 Intake Total 1883 600 Output Total 700 0 750 Balance 1183 0 -150 Weight 80 kg Intake: Oral 1883 600 Output: Gastric Drainage 0 Urine 700 750 Stool 0 0 Urine/Stool Mix 0 Emesis 0 Oral Regurgitation 0 Other 0 Other: Voiding Method Indwelling Catheter Indwelling Catheter Indwelling Catheter # Voids 0 # Bowel Movements 0 - Exam GENERAL: The patient is alert and oriented x3, not in any acute distress. Well developed, well nourished. HEENT: Pupils are round and equally reacting to light. EOMI. No scleral icterus. No conjunctival pallor. Normocephalic, atraumatic. No pharyngeal erythema. No thyromegaly. CARDIOVASCULAR: S1 and S2 present. No murmurs, rubs, or gallops. PULMONARY: Chest is clear to auscultation, no wheezing , no crackles. ABDOMEN: Soft, nontender, nondistended, normoactive bowel sounds. No palpable organomegaly. MUSCULOSKELETAL: No joint swelling or deformity. EXTREMITIES: No cyanosis, clubbing, or pedal edema. NEUROLOGICAL: Gross neurological examination did not reveal any focal deficits. SKIN: No rashes. no petechiae. - Labs CBC & Chem 7: 01/03/24 06:59 01/03/24 17:08 Labs: Abnormal Lab Results - Last 24 Hours (Table) 01/02/24 01/03/24 01/03/24 Range/Units 17:49 06:59 06:59 WBC 2.0 L (3.8-10.6) k/uL RBC 2.94 L (4.30-5.90) m/uL Hgb 9.4 L (13.0-17.5) gm/dL Hct 27.9 L (39.0-53.0) % RDW 15.8 H (11.5-15.5) % Plt Count 51 L (150-450) k/uL Lymphocytes # 0.2 L (1.0-4.8) k/uL Sodium 121 L 121 L (137-145) mmol/L Chloride 94 L (98-107) mmol/L Carbon Dioxide 16 L (22-30) mmol/L Glucose 135 H (74-99) mg/dL Calcium 7.7 L 7.5 L (8.4-10.2) mg/dL Total Bilirubin 2.3 H (0.2-1.3) mg/dL Total Protein 4.7 L (6.3-8.2) g/dL Albumin 2.2 L (3.5-5.0) g/dL Assessment and Plan Assessment: 1. 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 Patient received Samsca, patient sodium improving slowly and wool sorter following closely. Also patient on IV Lasix 40 mg and Aldactone 25 mg twice daily per wool sorter. Urine sodium less than 20 2. Chronic liver cirrhosis with recurrence ascites. Status post weekly paracentesis. The last 1 was done in Friday. Continue to monitor the patient very closely. Continue Lasix as well as spironolactone. 3. Hypertension and hypertensive cardiovascular disease. Currently patient blood pressure on the low side below average. Increase midodrine 10 mg 4. GERD. Continue patient on Protonix 40 mg orally once every day. 5. DVT prophylaxis. Bilateral knee-high TAMI hose. 6. Orthostatic hypotension continue patient on midodrine 10 mg orally 3 times every day. 7. Medical debility due to underlying liver cirrhosis physical therapy evaluation.
[2024-01-04] MEDS: MIDODRINE 5 MG TAB PO SCH (07:01)
[2024-01-04 08:57] LABS: African American GFR (CKD) >90 (>60 ml/min/1.73 sqM); Anion Gap 6 mmol/L; Blood Urea Nitrogen 11 mg/dL (9-20); Carbon Dioxide 24 mmol/L (22-30); Chloride 94 mmol/L (98-107); Glucose 75 mg/dL (74-99); Magnesium 1.8 mg/dL (1.6-2.3); Non-African American GFR(CKD) >90 (>60 ml/min/1.73 sqM); Potassium 3.9 mmol/L (3.5-5.1); Sodium 124 mmol/L (137-145)
--- NOTE | 2024-01-04 10:13 | P.PN ---
Subjective This is a 63 year old male with a previous medical history significant for hypertension and hypertensive cardiovascular disease, hyperlipidemia, history of pancreatitis in the past along with prior history of sepsis due to cellulitis about 2 year ago, history of chronic alcoholic hepatitis with alcoholic liver cirrhosis for which he has been following with Dr. Smith as an outpatient and has been getting a weekly paracentesis at [facility] he just had 1 Friday and he had a laboratory evaluation prior to that that showed a sodium of 118 patient was contacted and he was sent to the emergency department for evaluation patient was found to have a sodium level of 117, initially was given a bolus of IV fluid resuscitation, his sodium went down in 116, therefore he was started on Lasix 40 mg IV push every 12 hours, he had a Cornell catheter placed and, his serum osmolality was very low at 245, patient was admitted to the hospital with nephrology consultation, patient was placed on Lasix 40 mg IV push every 12 hours, I restarted the patient back on his salt tablet 1 g orally twice every day, his sodium is up to 119 we will continue to follow the patient very closely, during his hospital stay. Patient does not appear to have any mental status changes at this time, he denies any chest pain, or any shortness of breath at this time, he has minimal swelling both lower extremities. 01/01: Patient is laying down in bed in no apparent distress, he denies any chest pain, shortness of breath, he has been receiving Lasix, he has been receiving spironolactone and salt tablet, he was given Samsca 7.5 mg x 1 today and 1 yes ., repeat the sodium level tonight, patient continues to have a Cornell catheter in place, will take his Cornell catheter out tomorrow morning, continue to monitor the patient electrolyte very closely, continue monitor the patient CBC, patient is dependent on paracentesis on a weekly basis the last 1 was done in Friday we will continue to follow the patient very closely patient is eager to get out of the hospital. 01/02 Patient sitting up in bed, eating his meal with good appetite. Denies any specific symptoms and eager to go home. Sodium was still low this morning 04 26-04 27, he status post Samsca, his sodium improved later on to 123 Patient agrees to stay for hyponatremia treatment Blood pressure is borderline with systolic 80s to 90s, serum cortisol checked 2 days ago was not low at 9.0. Also patient on midodrine 5 mg 01/03 Sodium is improving slowly and gradually, it went up to 124 today He is Aldactone dose increased to 50 mg twice daily, he is status post Samsca x 1 today Keep monitoring sodium level Midodrine dose increased, he has borderline low blood pressure asymptomatic Is complaining from chronic low back pain, added lidocaine and Ultram x 1 Objective - Vital Signs Vital signs: Vital Signs Temp 97.8 F 01/04/24 08:42 Pulse 80 01/04/24 03:35 Resp 17 01/04/24 08:42 BP 93/57 01/04/24 08:42 Pulse Ox 98 01/04/24 08:42 FiO2 Intake & Output 01/03/24 01/04/24 01/04/24 18:59 06:59 18:59 Intake Total 1740 1560 Output Total 1150 450 Balance 590 -450 1560 Weight 82.4 kg Intake: Oral 1740 1560 Output: Urine 1150 450 Stool 0 Other: Voiding Method Indwelling Catheter Indwelling Catheter Indwelling Catheter - Exam GENERAL: The patient is alert and oriented x3, not in any acute distress. Well developed, well nourished. HEENT: Pupils are round and equally reacting to light. EOMI. No scleral icterus. No conjunctival pallor. Normocephalic, atraumatic. No pharyngeal erythema. No th yromegaly. CARDIOVASCULAR: S1 and S2 present. No murmurs, rubs, or gallops. PULMONARY: Chest is clear to auscultation, no wheezing , no crackles. ABDOMEN: Soft, nontender, nondistended, normoactive bowel sounds. No palpable organomegaly. MUSCULOSKELETAL: No joint swelling or deformity. EXTREMITIES: No cyanosis, clubbing, or pedal edema. NEUROLOGICAL: Gross neurological examination did not reveal any focal deficits. SKIN: No rashes. no petechiae. - Labs CBC & Chem 7: 01/03/24 06:59 01/04/24 07:22 Labs: Abnormal Lab Results - Last 24 Hours (Table) 01/03/24 01/04/24 Range/Units 17:08 07:22 Sodium 123 L 124 L (137-145) mmol/L Chloride 94 L (98-107) mmol/L Calcium 8.0 L (8.4-10.2) mg/dL Assessment and Plan Assessment: 1. 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 Patient received Samsca, patient sodium improving slowly and stage rigger following closely. Also patient on IV Lasix 40 mg, switched to oral dose today and Aldactone 5 0 mg twice daily per stage rigger. Urine sodium less than 20 2. Chronic liver cirrhosis with recurrence ascites. Status post weekly paracentesis. The last 1 was done in Friday. Continue to monitor the patient very closely. Continue Lasix as well as spironolactone. 3. Hypertension and hypertensive cardiovascular disease. Currently patient blood pressure on the low side below average. Increase midodrine 10 mg 4. GERD. Continue patient on Protonix 40 mg orally once every day. 5. DVT prophylaxis. Bilateral knee-high TAMI hose. 6. Orthostatic hypotension continue patient on midodrine 10 mg orally 3 times every day. 7. Medical debility due to underlying liver cirrhosis physical therapy evaluation. 8. Chronic low back pain, topical treatment
[2024-01-04] MEDS: traMADol 50 MG TAB PO STA (10:33)
[2024-01-04] MEDS: LIDOCAINE 4% CREAM 5 GM TUBE TOPICAL ONE (10:33)
[2024-01-04] MEDS: FUROSEMIDE 40 MG TAB PO SCH (10:33)
[2024-01-04] MEDS: TOLVAPTAN 15 MG TABLET PO ONE (10:34)
--- NOTE | 2024-01-04 10:51 | P.PN ---
Subjective Patient is seen in follow-up for hyponatremia. Sodium level 124 this morning. Nonoliguric. Has Cornell catheter. Oral intake fair. Vital signs are stable. General: No acute distress. HEENT: Head exam is unremarkable. LUNGS: No audible rhonchi or wheezes. HEART: Rate and Rhythm are regular. ABDOMEN: Nontender. EXTREMITITES: Trace edema. Objective - Vital Signs Vital signs: Vital Signs Temp 97.8 F 01/04/24 08:42 Pulse 80 01/04/24 03:35 Resp 17 01/04/24 08:42 BP 93/57 01/04/24 08:42 Pulse Ox 98 01/04/24 08:42 FiO2 Intake & Output 01/03/24 01/04/24 01/04/24 18:59 06:59 18:59 Intake Total 1740 1560 Output Total 1150 450 280 Balance 590 -450 1280 Weight 82.4 kg Intake: Oral 1740 1560 Output: Urine 1150 450 280 Stool 0 Other: Voiding Method Indwelling Catheter Indwelling Catheter Indwelling Catheter - Labs CBC & Chem 7: 01/03/24 06:59 01/04/24 07:22 Labs: Abnormal Lab Results - Last 24 Hours (Table) 01/03/24 01/04/24 Range/Units 17:08 07:22 Sodium 123 L 124 L (137-145) mmol/L Chloride 94 L (98-107) mmol/L Calcium 8.0 L (8.4-10.2) mg/dL Assessment and Plan Plan: Assessment: 1. Hyponatremia. Hypervolemic. No improvement with IV fluids. Sodium level 124 this morning. TSH normal. Urine sodium less than 20 and urine osmolality 525. 2. Alcohol induced liver cirrhosis. 3. Ascites status post paracentesis December 31, 2023 with 5.8 L drained. 4. Metabolic acidosis secondary to IV fluids and underlying compensation for respiratory alkalosis due to cirrhosis. Improved. Plan: Maintain Aldactone. Increase dose to 50 mg. Repeat Samsca 15 mg once today. Change Lasix from IV to oral. Maintain 1500 cc fluid restriction. Okay to DC Cornell catheter. Repeat sodium level this evening.
[2024-01-04] MEDS: SODIUM CHLORIDE TAB 1 GM TAB PO STA (18:10)
[2024-01-04] MEDS: SPIRONOLACTONE 25 MG TAB PO SCH (21:04)
[2024-01-04 22:17] VITALS: RESP 16
[2024-01-05 08:20] LABS: INR 1.3 (<1.2); Prothrombin Time 13.5 sec (10.0-12.5)
[2024-01-05 08:25] LABS: HCT 31.8 % (39.0-53.0); HGB 10.1 gm/dL (13.0-17.5); Hypochromasia Moderate; MCHC 31.6 g/dL (31.0-37.0); MCV 98.3 fL (80.0-100.0); Macrocytosis Slight; Mean Platelet Volume 8.3; RBC 3.24 m/uL (4.30-5.90); RDW 15.4 % (11.5-15.5); WBC 3.4 k/uL (3.8-10.6)
[2024-01-05 08:28] VITALS: TEMP 98
[2024-01-05 08:44] LABS: Platelet Count 68 k/uL (150-450)
[2024-01-05 08:48] LABS: African American GFR (CKD) >90 (>60 ml/min/1.73 sqM); Anion Gap 6 mmol/L; Blood Urea Nitrogen 12 mg/dL (9-20); Calcium 8.2 mg/dL (8.4-10.2); Carbon Dioxide 24 mmol/L (22-30); Chloride 93 mmol/L (98-107); Glucose 71 mg/dL (74-99); Non-African American GFR(CKD) >90 (>60 ml/min/1.73 sqM); Sodium 123 mmol/L (137-145)
[2024-01-05 08:50] LABS: Potassium 4.4 mmol/L (3.5-5.1)
[2024-01-05 12:19] VITALS: BP 107/62; PULSE 76
--- NOTE | 2024-01-05 12:29 | P.PN ---
Subjective patient is seen for follow-up for hyponatremia. He has underlying liver cirrhosis. Serum sodium at 123 today. Status post [facility]. Patient also received sodium chloride tablets which is now discontinued. Patient wants to go home. Tolerating oral intake. Objective - Vital Signs Vital signs: Vital Signs Temp 98.0 F 01/05/24 08:26 Pulse 76 01/05/24 12:17 Resp 16 01/05/24 12:17 BP 107/62 01/05/24 12:17 Pulse Ox 97 01/05/24 12:17 FiO2 Intake & Output 01/04/24 01/05/24 01/05/24 18:59 06:59 18:59 Intake Total 2160 Output Total 530 500 Balance 1630 -500 Weight 82.4 kg Intake: Oral 2160 Output: Urine 530 500 Other: Voiding Method Urinal Urinal Urinal # Voids 1 - Exam patient is currently in the shower. He is awake and alert. Minimal edema noted in the lower extremities. - Labs CBC & Chem 7: 01/05/24 07:06 01/05/24 07:06 Labs: Abnormal Lab Results - Last 24 Hours (Table) 01/04/24 01/05/24 01/05/24 Range/Units 15:54 07:06 07:06 WBC 3.4 L (3.8-10.6) k/uL RBC 3.24 L (4.30-5.90) m/uL Hgb 10.1 L (13.0-17.5) gm/dL Hct 31.8 L (39.0-53.0) % Plt Count 68 L (150-450) k/uL PT 13.5 H (10.0-12.5) sec INR 1.3 H (<1.2) Sodium 123 L (137-145) mmol/L Chloride (98-107) mmol/L Glucose (74-99) mg/dL Calcium (8.4-10.2) mg/dL 01/05/24 Range/Units 07:06 WBC (3.8-10.6) k/uL RBC (4.30-5.90) m/uL Hgb (13.0-17.5) gm/dL Hct (39.0-53.0) % Plt Count (150-450) k/uL PT (10.0-12.5) sec INR (<1.2) Sodium 123 L (137-145) mmol/L Chloride 93 L (98-107) mmol/L Glucose 71 L (74-99) mg/dL Calcium 8.2 L (8.4-10.2) mg/dL Assessment and Plan Assessment: 1. Hyponatremia. Hypervolemic. No improvement with IV fluids. Sodium level 123 this morning. Maintained on oral Lasix. TSH normal. Urine sodium less than 20 and urine osmolality 525. 2. Alcohol induced liver cirrhosis. 3. Ascites status post paracentesis December 31, 2023 with 5.8 L drained. 4. Metabolic acidosis secondary to IV fluids and underlying compensation for respiratory alkalosis due to cirrhosis. Improved. Plan: continue with oral Lasix Can DC sodium bicarb as it is adding sodium load. If patient is discharged today he will need close monitoring of labs as outpatient. Maintain salt and fluid restriction.
--- NOTE | 2024-01-10 14:21 | P.DS ---
Providers Date of admission: 12/31/23 21:11 Expected date of discharge: 01/05/24 Attending physician: Reggie Cho Consults: 12/31/23 21:10 Consult Physician Routine Consulting Provider: Vignesh Xavier Consult Reason/Comments: hypoNa Do you want consulting provider notified?: Yes Primary care physician: Reggie Cho [facility] Course: This is a 63 year old male with a previous medical history significant for hypertension and hypertensive cardiovascular disease, hyperlipidemia, history of pancreatitis in the past along with prior history of sepsis due to cellulitis about 2 year ago, history of chronic alcoholic hepatitis with alcoholic liver cirrhosis for which he has been following with Dr. Smith as an outpatient and has been getting a weekly paracentesis at [facility] he just had 1 Friday and he had a laboratory evaluation prior to that that showed a sodium of 118 patient was contacted and he was sent to the emergency department for evaluation patient was found to have a sodium level of 117, initially was given a bolus of IV fluid resuscitation, his sodium went down in 116, therefore he was started on Lasix 40 mg IV push every 12 hours, he had a Cornell catheter placed and, his serum osmolality was very low at 245, patient was admitted to the hospital with nephrology consultation, patient was placed on Lasix 40 mg IV push every 12 hours, I restarted the patient back on his salt tablet 1 g orally twice every day, his sodium is up to 119 we will continue to follow the patient very closely, during his hospital stay. Patient does not appear to have any mental status changes at this time, he denies any chest pain, or any shortness of breath at this time, he has minimal swelling both lower extremities. 01/01: Patient is laying down in bed in no apparent distress, he denies any chest pain, shortness of breath, he has been receiving Lasix, he has been receiving spironolactone and salt tablet, he was given Samsca 7.5 mg x 1 today and 1 y ., repeat the sodium level tonight, patient continues to have a Cornell catheter in place, will take his Cornell catheter out tomorrow morning, continue to monitor the patient electrolyte very closely, continue monitor the patient CBC, patient is dependent on paracentesis on a weekly basis the last 1 was done in Friday we will continue to follow the patient very closely patient is eager to get out of the hospital. 01/02 Patient sitting up in bed, eating his meal with good appetite. Denies any specific symptoms and eager to go home. Sodium was still low this morning 04 26-04 27, he status post [facility], his sodium improved later on to 123 Patient agrees to stay for hyponatremia treatment Blood pressure is borderline with systolic 80s to 90s, serum cortisol checked 2 days ago was not low at 9.0. Also patient on midodrine 5 mg 01/03 Sodium is improving slowly and gradually, it went up to 124 today He is Aldactone dose increased to 50 mg twice daily, he is status post [facility] x 1 today Keep monitoring sodium level Midodrine dose increased, he has borderline low blood pressure asymptomatic Is complaining from chronic low back pain, added lidocaine and Ultram x 1 01/04: Patient is laying down in bed in no apparent distress, he is more awake and more alert, his sodium is still a bit on the lower side, but patient wanted to be discharged home and go back to [facility] at this point in time, as he would be more free to move around, he will have his laboratory evaluation checked again in the next few days, including CMP, serum osmolality, urine osmolality hopefully in my office, and send a copy to nephrology continue the patient on current treatment plan at this point, and will follow-up with the patient as an outpatient. Discharge diagnoses: 1. 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 2. Chronic liver cirrhosis with recurrence ascites. 3. Hypertension and hypertensive cardiovascular disease. 4. GERD. 6. Orthostatic hypotension 7. Medical debility due to underlying liver cirrhosis Patient Condition at Discharge: Serious Plan - Discharge Summary Discharge Rx Participant: No New Discharge Prescriptions: New Spironolactone [Aldactone] 50 mg PO BID #60 tab Continue Folic Acid 1 mg PO DAILY tab Furosemide [Lasix] 40 mg PO DAILY tab Sodium Chloride Tab 1 gm PO BID Pantoprazole [Protonix] 40 mg PO AC-BRKFST tab Midodrine [ProAmatine] 5 mg PO TID Potassium Chloride ER [K-Dur 20] 20 meq PO DAILY tablet Albuterol Inhaler [Ventolin Hfa Inhaler] 2 puff INHALATION RT-TID PRN PRN Reason: Shortness Of Breath traZODone HCL 150 mg PO HS Discontinued Spironolactone [Aldactone] 25 mg PO BID tab Discharge Medication List Pantoprazole [Protonix] 40 mg PO AC-BRKFST tab 06/22/21 [Rx] Midodrine [ProAmatine] 5 mg PO TID 07/13/21 [History] Folic Acid 1 mg PO DAILY tab 07/18/21 [Rx] Potassium Chloride ER [K-Dur 20] 20 meq PO DAILY tablet 07/18/21 [Rx] Albuterol Inhaler [Ventolin Hfa Inhaler] 2 puff INHALATION RT-TID PRN 08/06/23 [History] Furosemide [Lasix] 40 mg PO DAILY tab 08/27/23 [Rx] Sodium Chloride Tab 1 gm PO BID 09/17/23 [History] traZODone HCL 150 mg PO HS 12/31/23 [History] Spironolactone [Aldactone] 50 mg PO BID #60 tab 01/05/24 [Rx] Follow up Appointment(s)/Referral(s): Reggie Cho MD [Primary Care Provider] - 01/09/24 10:45 am Patient Instructions/Handouts: Hyponatremia (DC) Discharge/Stand Alone Forms: AA Meetings [place], In Substance Abuse Facilities Discharge Disposition: HOME SELF-CARE
== END 2024-01-05 15:11 | disposition home or self-care (01) | DRG 644 ==
LOC: EC 19:05 → 3SCARD 21:11
PROVIDERS: ADMIT Internal Medicine; ATTEND Internal Medicine
DX: E22.2 Syndrome of inappropriate secretion of antidiuretic hormone (principal); E87.4 Mixed disorder of acid-base balance; E78.5 Hyperlipidemia, unspecified; E87.70 Fluid overload, unspecified; G89.29 Other chronic pain; I11.9 Hypertensive heart disease without heart failure; I95.1 Orthostatic hypotension; K21.9 Gastro-esophageal reflux disease without esophagitis; K70.11 Alcoholic hepatitis with ascites; K70.31 Alcoholic cirrhosis of liver with ascites; M54.9 Dorsalgia, unspecified; M19.90 Unspecified osteoarthritis, unspecified site; R53.81 Other malaise; Z79.899 Other long term (current) drug therapy; Z86.19 Personal history of other infectious and parasitic diseases; Z88.8 Allergy status to other drugs, medicaments and biological substances
CPT/HCPCS: 36415; 80048; 80053; 80320; 82533; 83605; 83735; 83930; 83935; 84100; 84295; 84300; 84443; 84484; 85025; 85027; 85610; 85730; 93005; 96361; 96374; 96375; 96376; 99285

== ENCOUNTER → 2023-12-31 | Outpatient (CLI) | payer MEDICARE ==
[2023-12-31 15:31] LABS: Basophils # (A) 0.01 X 10*3/uL (0.00-0.10); Basophils % (A) 0.2 %; Eosinophils # (A) 0.02 X 10*3/uL (0.04-0.35); Eosinophils % (A) 0.4 %; HCT 26.4 % (39.6-50.0); HGB 8.9 g/dL (13.0-17.0); Immature Platelet Fraction 1.7 % (1.1-6.1); Lymphocytes # (A) 0.22 X 10*3/uL (0.90-5.00); Lymphocytes % (A) 4.4 %; MCH 30.4 pg (27.0-32.0); MCHC 33.7 g/dL (32.0-37.0); MCV 90.1 FL (80.0-97.0); Mean Platelet Volume 10.2 FL (9.5-12.2); Monocytes # (A) 0.46 X 10*3/uL (0.20-1.00); Monocytes % (A) 9.3 %; NRBC Per 100 WBC 0 X 10*3/uL (0.00-0.01); Neutrophils # (A) 4.22 X 10*3/uL (1.80-7.70); Neutrophils % (A) 85.3 %; Platelet Count 67 X 10*3/uL (140-440); RBC 2.93 X 10*6/uL (4.40-5.60); RDW 15.7 % (11.5-14.5); WBC 4.95 X 10*3/uL (4.50-10.00)
[2023-12-31 15:41] LABS: Chol/HDL Ratio 1.51 Ratio; LDL Cholesterol,Calculated 10.2 mg/dL (0.0-131.0); Magnesium 1.9 mg/dL (1.5-2.4); Prostate Specific Antigen 0.16 ng/mL (0.000-4.500); VLDL Calculation 7.66 mg/dL (5.00-40.00)
[2023-12-31 15:47] LABS: INR 1.59 sec (0.93-1.11); Prothrombin Time 16.7 sec (9.9-11.9)
[2023-12-31 15:53] LABS: ALT 22 U/L (10-49); AST 28 U/L (14-35); Albumin 3.1 g/dL (3.8-4.9); Albumin/Globulin Ratio 1.72 Ratio (1.60-3.17); Alkaline Phosphatase 69 U/L (41-126); Blood Urea Nitrogen 9.5 mg/dL (9.0-27.0); Carbon Dioxide 16.8 mmol/L (21.6-31.8); Chloride 91 mmol/L (96-109); Globulin 1.8 g/dL (1.6-3.3); Glucose 99 mg/dL (70-110); Potassium 4.7 mmol/L (3.5-5.5); Sodium 118 mmol/L (135-145); Total Bilirubin 2.1 mg/dL (0.3-1.2); Total Protein 4.9 g/dL (6.2-8.2)
== END | disposition home or self-care (01) ==
LOC: LABWHC1 11:10
PROVIDERS: ATTEND Internal Medicine
DX: Z00.00 Encounter for general adult medical examination without abnormal findings (principal); N40.0 Benign prostatic hyperplasia without lower urinary tract symptoms; E78.2 Mixed hyperlipidemia; J44.9 Chronic obstructive pulmonary disease, unspecified; K70.31 Alcoholic cirrhosis of liver with ascites; I10 Essential (primary) hypertension
CPT/HCPCS: 36415; 80053; 80061; 82140; 83036; 83735; 83930; 84153; 84443; 84550; 85025; 85610

== ENCOUNTER 2024-01-07 09:12 | Day surgery (SDC) | payer MEDICARE ==
[2024-01-07 09:36] VITALS: RESP 12; TEMP 98.5
[2024-01-07] MEDS: ALBUMIN HUMAN 25% 50 ML in EMPTY BAG 1 BAG IVPB SCH (10:16)
[2024-01-07 10:57] VITALS: BP 91/52; PULSE 84
--- NOTE | 2024-01-08 09:15 | US ---
EXAMINATION TYPE: US paracentesis abd w/image DATE OF EXAM: 01/07/2024 10:14 AM CLINICAL INDICATION:Male, 63 years old with history of ascites; COMPARISON: prior paracentesis. ATTENDING: Dr. Ajay Cunha PROCEDURE: Informed consent was obtained. The risks of the procedure were extensively explained incl uding risk of damage to surrounding bowel with perforation and need for additional procedures. Proced ure was performed in the ultrasound procedure suite. Ultrasound imaging of the abdomen demonstrate as citic fluid. An appropriate access site was localized to the right lower abdomen. Timeout was taken p er protocol. The skin was prepped and draped in the usual sterile fashion and then locally anesthetiz ed with 1% lidocaine. The peritoneal cavity was then accessed via a 5-Setswana one-step needle/cathete r. Approximately 6800 cc of clear straw-colored fluid was obtained. Postprocedural imaging of the ab domen demonstrate a minimal amount of abdominal fluid. Patient tolerated procedure well without immediate complication. Hemostasis at the procedural site w as obtained with a sterile bandage placed. The patient was monitored in the holding area following th e procedure and was subsequently discharged in stable condition. IMPRESSION: Ultrasound guided paracentesis, with approximately 6800 cc of clear straw-colored fluid drained. No immediate complications were evident. [facility], , 01/08/2024 9:13 AM
== END 2024-01-07 11:15 | disposition home or self-care (01) ==
LOC: RADPROMAIN 09:12
PROVIDERS: ATTEND Internal Medicine
DX: R18.8 Other ascites (principal)
CPT/HCPCS: 36415; 49083

== ENCOUNTER 2024-01-14 09:21 | Day surgery (SDC) | payer MEDICARE ==
[2024-01-14 10:06] VITALS: RESP 16; TEMP 97.9
[2024-01-14] MEDS: ALBUMIN HUMAN 25% 50 ML in EMPTY BAG 1 BAG IVPB SCH (10:19)
[2024-01-14 11:15] VITALS: BP 122/71; PULSE 80
--- NOTE | 2024-01-14 13:03 | US ---
EXAMINATION TYPE: US paracentesis abd w/image DATE OF EXAM: 01/14/2024 CLINICAL HISTORY: 63-year-old male referred for routine weekly paracentesis. K70.31 ALCOHOLIC CIRRH OSIS OF LIVER WITH ASCITES The procedure was discussed with the patient. The risks, complications, benefits, and alternatives we re discussed and any questions were answered. Informed consent was obtained. The patient was placed s upine on the ultrasound table and prepped and draped in the usual sterile fashion. All elements of maximal barrier technique were utilized. Ultrasound was utilized to determine the precise skin entry site along the right lower quadrant. A 5 Sinhala One-Step catheter and trocar technique was utilized to access the ascites collection under direct ultrasound guidance. Approximately 6.7 liters of clear, straw-colored fluid was removed. Catheter was removed, hemostasis obtained, and a dressing placed. The patient was stable throughout the procedure and remained stable upon discharge from Department of Radiology. IMPRESSION: Successful therapeutic paracentesis under ultrasound guidance. 6.7 L of fluid removed. [facility], , 01/14/2024 1:00 PM
== END 2024-01-14 11:30 | disposition home or self-care (01) ==
LOC: RADPROMAIN 09:21
PROVIDERS: ATTEND Internal Medicine
DX: K70.31 Alcoholic cirrhosis of liver with ascites (principal)
CPT/HCPCS: 36415; 49083

== ENCOUNTER 2024-01-20 19:00 | Inpatient (IN) | payer MEDICARE, OTHER ==
--- NOTE | 2024-01-20 19:29 | ED ---
General Adult HPI - General Chief complaint: Recheck/Abnormal Lab/Rx Stated complaint: Weakness Time Seen by Provider: 01/20/24 19:10 Source: patient, EMS Mode of arrival: EMS Limitations: no limitations - History of Present Illness Initial comments: 63-year-old male with past medical history of end-stage liver disease who presents to the emergency department reporting weakness. States has had multiple falls over the past day. Today he fell and was having difficulty getting up off the floor. This made it so he was unable to take his medications including his midodrine, Lasix and salt tablets. 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 He gets weekly paracenteses. He is supposed to get a paracentesis tomorrow. Patient called EMS due to the fall. Denies hitting his head. Does have a skin tear to the left elbow. He denies any fevers. Denies shortness of breath. EKG completed on the patient appears that he is in new onset A-fib - Related Data Home Medications Medication Instructions Recorded Confirmed Midodrine [ProAmatine] 5 mg PO TID 07/13/21 01/20/24 Albuterol Inhaler [Ventolin Hfa 2 puff INHALATION RT-TID PRN 08/06/23 01/20/24 Inhaler] Sodium Chloride Tab 1 gm PO BID 09/17/23 01/20/24 traZODone HCL 150 mg PO HS 12/31/23 01/20/24 Previous Rx's Medication Instructions Recorded Pantoprazole [Protonix] 40 mg PO AC-BRKFST tab 06/22/21 Folic Acid 1 mg PO DAILY tab 07/18/21 Potassium Chloride ER [K-Dur 20] 20 meq PO DAILY tablet 07/18/21 Furosemide [Lasix] 40 mg PO DAILY tab 08/27/23 Spironolactone [Aldactone] 50 mg PO BID #60 tab 01/05/24 Allergies Allergy/AdvReac Type Severity Reaction Status Date / Time lisinopril AdvReac causes Verified 01/20/24 19:50 pancreatitis Review of Systems ROS Statement: Those systems with pertinent positive or pertinent negative responses have been documented in the HPI. ROS Other: All systems not noted in ROS Statement are negative. Past Medical History Past Medical History: Hypertension, Liver Disease, Pneumonia Additional Past Medical History / Comment(s): Liver cirrhosis, splenomegaly, pancreatitis-pt states pancreatitis was side effect from Lisinopril, pt denies h x of alcoholism/drinking heavily, cellulitis with sepsis, ASCITES History of Any Multi-Drug Resistant Organisms: None Reported Past Surgical History: No Surgical Hx Reported Additional Past Surgical History / Comment(s): dental extraction, cataract bilateral - Pt states he was awake for both procedure and has never had general anesthesia Past Anesthesia/Blood Transfusion Reactions: No Reported Reaction, Unable to Obtain Additional Past Anesthesia/Blood Transfusion Reaction / Comment(s): Pt has never had anesthesia Past Psychological History: No Psychological Hx Reported Smoking Status: Never smoker Past Alcohol Use History: None Reported Past Drug Use History: None Reported - Past Family History Mother Family Medical History: Hypertension Additional Family Medical History / Comment(s): Mother lived to be 91 yrs old. Father Family Medical History: CVA/TIA Additional Family Medical History / Comment(s): Father of a CVA at the age of 65yrs. Son(s) Family Medical History: No Reported History Daughter(s) Family Medical History: No Reported History General Exam Limitations: no limitations General appearance: alert Head exam: Present: atraumatic Eye exam: Present: normal appearance, PERRL, EOMI. Absent: scleral icterus, conjunctival injection, periorbital swelling ENT exam: Present: mucous membranes dry Cardiovascular Exam: Present: tachycardia, irregular rhythm GI/Abdominal exam: Present: soft, distended Extremities exam: Present: other (Multiple skin tears of the upper extremities) Course Vital Signs 01/20/24 01/20/24 01/20/24 19:04 19:20 21:16 Temperature 98.8 F 98.2 F Pulse Rate 130 H 101 H 121 H Respiratory 20 16 17 Rate Blood Pressure 118/90 118/90 82/67 O2 Sat by Pulse 100 98 100 Oximetry 01/20/24 01/20/24 01/20/24 22:00 22:32 23:00 Temperature Pulse Rate 118 H 107 H 106 H Respiratory 17 17 19 Rate Blood Pressure 102/67 84/64 79/67 O2 Sat by Pulse 100 100 100 Oximetry 01/20/24 01/20/24 01/20/24 23:07 23:23 23:30 Temperature Pulse Rate 105 H 111 H 99 Respiratory 19 16 16 Rate Blood Pressure 110/74 95/64 95/64 O2 Sat by Pulse 100 100 100 Oximetry 01/20/24 01/21/24 01/21/24 23:40 00:00 00:02 Temperature Pulse Rate 112 H 105 H 98 Respiratory 16 16 14 Rate Blood Pressure 92/79 90/68 82/71 O2 Sat by Pulse 100 100 100 Oximetry 01/21/24 01/21/24 01/21/24 00:20 00:39 00:45 Temperature Pulse Rate 107 H 106 H Respiratory 17 18 17 Rate Blood Pressure 86/37 73/61 73/61 O2 Sat by Pulse 100 100 100 Oximetry 01/21/24 01/21/24 01/21/24 01:00 01:15 01:30 Temperature Pulse Rate 110 H 108 H 96 Respiratory 18 19 19 Rate Blood Pressure 88/53 99/76 95/67 O2 Sat by Pulse 100 100 100 Oximetry 01/21/24 01/21/24 01/21/24 01:51 02:31 03:00 Temperature Pulse Rate 95 98 104 H Respiratory 16 14 17 Rate Blood Pressure 91/66 84/56 103/66 O2 Sat by Pulse 100 100 100 Oximetry 01/21/24 01/21/24 01/21/24 03:07 03:15 03:30 Temperature Pulse Rate 104 H 101 H 105 H Respiratory 14 18 17 Rate Blood Pressure 86/60 86/60 96/58 O2 Sat by Pulse 100 100 100 Oximetry 01/21/24 01/21/24 01/21/24 03:45 04:16 05:02 Temperature Pulse Rate 106 H 111 H 109 H Respiratory 18 16 16 Rate Blood Pressure 85/62 91/57 93/63 O2 Sat by Pulse 100 100 100 Oximetry 01/21/24 01/21/24 01/21/24 06:16 06:30 06:58 Temperature Pulse Rate 106 H 107 H 105 H Respiratory 16 19 144 H Rate Blood Pressure 93/63 93/63 90/54 O2 Sat by Pulse 99 99 100 Oximetry 01/21/24 07:55 Temperature Pulse Rate 104 H Respiratory 20 Rate Blood Pressure 97/65 O2 Sat by Pulse 100 Oximetry Medical Decision Making - Medical Decision Making Was pt. sent in by a medical professional or institution (, PA, CANDLE CUTTER, urgent care, hospital, or [facility]...) When possible be specific @ -No Did you speak to anyone other than the patient for history (EMS, parent, family, police, friend...)? What history was obtained from this source @ -Spoke with EMS for history Did you review nursing and triage notes (agree or disagree)? Why? @ -I reviewed and agree with nursing and triage notes Were old charts reviewed (outside hosp., previous admission, EMS record, old EKG, old radiological studies, urgent care reports/EKG's, [facility] records)? Report findings @ -Reviewed patient's previous hospitalization from December 30 Differential Diagnosis (chest pain, altered mental status, abdominal pain women, abdominal pain men, vaginal bleeding, weakness, fever, dyspnea, syncope, headache, dizziness, GI bleed, back pain, seizure, CVA, palpatations, mental health, musculoskeletal)? @ -Differential Weakness: Hypoglycemia, shock, sepsis, hyponatremia, anemia, infection, NE, ETOH, adverse medicine reaction, overdose, stroke, this is not meant to be an all-inclusive list. EKG interpreted by me (3pts min.). @ -Yes and demonstrates A-fib with a rate of 118. QRS 57. QTc of 362. No acute ST segment elevations or depressions X-rays interpreted by me (1pt min.). @ -Yes and does not demonstrate pulmonary edema CT interpreted by me (1pt min.). @ -None done U/S interpreted by me (1pt. min.). @ -None done What testing was considered but not performed or refused? (CT, X-rays, U/S, labs)? Why? @ -None What meds were considered but not given or refused? Why? @ -None Did you discuss the management of the patient with other professionals (professionals i.e. , PA, CANDLE CUTTER, lab, RT, psych nurse, social services analyst, video games mechanic, teacher, chief credit officer, case assistant)? Give summary @ -Spoke with Dr. Tran. Requested that patient get midodrine and then 40 mg of Lasix. Repeat sodium in 4 hours. If no improvement then the patient will need 3%. Also spoke with Jori from ICU Was smoking cessation discussed for >3mins.? @ -No Was critical care preformed (if so, how long)? @ -Yes, 35 minutes for management of hyponatremia Were there social determinants of health that impacted care today? How? (Homelessness, low income, unemployed, alcoholism, drug addiction, transport ation, low edu. Level, literacy, decrease access to med. care, assisted, rehab)? @ -No Was there de-escalation of care discussed even if they declined (Discuss DNR or withdrawal of care, Hospice)? DNR status @ -No What co-morbidities impacted this encounter? (DM, HTN, Smoking, COPD, CAD, Cancer, CVA, ARF, Chemo, Hep., AIDS, mental health diagnosis, sleep apnea, morbid obesity)? @ -End-stage liver failure Was patient admitted / discharged? Hospital course, mention meds given and route, prescriptions, significant lab abnormalities, going to OR and other pertinent info. @ -Upon arrival patient seen and evaluated in room 3. Thorough history and physical exam was performed. Patient's blood pressure is normal upon arrival but does steadily decrease upon his time here. I did give him his midodrine as he did miss this medication today. Laboratory studies were conducted which demonstrate a sodium of 113. Spoke with Dr. Tran. Would like the patient to be diuresed however blood pressure is soft at this time. He is given the midodrine and we are awaiting improvement in the blood pressure before Lasix will be administered. Sodium is to be repeated in 4 hours and assess for improvement. If no improvement patient will be started on 3%. I spoke with Jori from ICU as well as Dr. Cho for admission Undiagnosed new problem with uncertain prognosis? @ -No Drug Therapy requiring intensive monitoring for toxicity (Heparin, Nitro, Insulin, Cardizem)? @ -No Were any procedures done? @ -No Diagnosis/symptom? @ -Acute on chronic hyponatremia, hypotension, end-stage liver disease Acute, or Chronic, or Acute on Chronic? @ -Acute on chronic Uncomplicated (without systemic symptoms) or Complicated (systemic symptoms)? @ -Complicated Side effects of treatment? @ -No Exacerbation, Progression, or Severe Exacerbation? @ -No Poses a threat to life or bodily function? How? (Chest pain, USA, NE, pneumonia, PE, COPD, DKA, ARF, appy, cholecystitis, CVA, Diverticulitis, Homicidal, Suic idal, threat to staff... and all critical care pts) @ -Yes as patient is markedly hyponatremic - Lab Data Result diagrams: 01/26/24 04:24 01/26/24 04:24 Lab Results 01/20/24 01/20/24 01/20/24 Range/Units 20:10 20:10 20:10 WBC 15.9 H (3.8-10.6) k/uL RBC 3.10 L (4.30-5.90) m/uL Hgb 9.5 L (13.0-17.5) gm/dL Hct 29.7 L (39.0-53.0) % MCV 95.7 (80.0-100.0) fL MCH 30.6 (25.0-35.0) pg MCHC 32.0 (31.0-37.0) g/dL RDW 15.7 H (11.5-15.5) % Plt Count 155 (150-450) k/uL MPV 7.2 Neutrophils % 89 % Lymphocytes % 1 % Monocytes % 8 % Eosinophils % 0 % Basophils % 0 % Neutrophils # 14.1 H (1.3-7.7) k/uL Lymphocytes # 0.2 L (1.0-4.8) k/uL Monocytes # 1.3 H (0-1.0) k/uL Eosinophils # 0.0 (0-0.7) k/uL Basophils # 0.0 (0-0.2) k/uL Hypochromasia Slight PT 15.7 H (10.0-12.5) sec INR 1.5 H (<1.2) APTT 33.6 H (22.0-30.0) sec Sodium 113 L* (137-145) mmol/L Potassium 5.1 (3.5-5.1) mmol/L Chloride 92 L (98-107) mmol/L Carbon Dioxide 13 L (22-30) mmol/L Anion Gap 8 mmol/L BUN 18 (9-20) mg/dL Creatinine 0.99 (0.66-1.25) mg/dL Est GFR (CKD-EPI)AfAm >90 (>60 ml/min/1.73 sqM) Est GFR (CKD-EPI)NonAf 80 (>60 ml/min/1.73 sqM) Glucose 114 H (74-99) mg/dL Osmolality 244 A* (275-295) mOsm/kg Lactic Ac Sepsis Rflx Plasma Lactic Acid Mason (0.7-2.0) mmol/L Calcium 7.9 L (8.4-10.2) mg/dL Magnesium 2.1 (1.6-2.3) mg/dL Total Bilirubin 3.5 H (0.2-1.3) mg/dL AST 67 H (17-59) U/L ALT 43 (4-49) U/L Alkaline Phosphatase 113 (38-126) U/L Creatine Kinase (55-170) U/L NT-Pro-B Natriuret Pep 2010 pg/mL Total Protein 5.4 L (6.3-8.2) g/dL Albumin 2.5 L (3.5-5.0) g/dL 01/20/24 01/20/24 01/20/24 Range/Units 20:10 20:10 20:33 WBC (3.8-10.6) k/uL RBC (4.30-5.90) m/uL Hgb (13.0-17.5) gm/dL Hct (39.0-53.0) % MCV (80.0-100.0) fL MCH (25.0-35.0) pg MCHC (31.0-37.0) g/dL RDW (11.5-15.5) % Plt Count (150-450) k/uL MPV Neutrophils % % Lymphocytes % % Monocytes % % Eosinophils % % Basophils % % Neutrophils # (1.3-7.7) k/uL Lymphocytes # (1.0-4.8) k/uL Monocytes # (0-1.0) k/uL Eosinophils # (0-0.7) k/uL Basophils # (0-0.2) k/uL Hypochromasia PT (10.0-12.5) sec INR (<1.2) APTT (22.0-30.0) sec Sodium (137-145) mmol/L Potassium (3.5-5.1) mmol/L Chloride (98-107) mmol/L Carbon Dioxide (22-30) mmol/L Anion Gap mmol/L BUN (9-20) mg/dL Creatinine (0.66-1.25) mg/dL Est GFR (CKD-EPI)AfAm (>60 ml/min/1.73 sqM) Est GFR (CKD-EPI)NonAf (>60 ml/min/1.73 sqM) Glucose (74-99) mg/dL Osmolality (275-295) mOsm/kg Lactic Ac Sepsis Rflx Y Plasma Lactic Acid Mason 4.7 H* (0.7-2.0) mmol/L Calcium (8.4-10.2) mg/dL Magnesium (1.6-2.3) mg/dL Total Bilirubin (0.2-1.3) mg/dL AST (17-59) U/L ALT (4-49) U/L Alkaline Phosphatase (38-126) U/L Creatine Kinase 42 L (55-170) U/L NT-Pro-B Natriuret Pep pg/mL Total Protein (6.3-8.2) g/dL Albumin (3.5-5.0) g/dL Disposition Clinical Impression: Acute hyponatremia, Falls frequently, Skin tear, Liver cirrhosis Disposition: ADMITTED IP TO THIS [facility] Condition: Serious Is patient prescribed a controlled substance at d/c from ED?: No Time of Disposition: 22:50 Decision to Admit Reason: Admit from EC Decision Date: 01/20/24 Decision Time: 22:50
[2024-01-20 20:21] LABS: Basophils % (A) 0 %; Eosinophils % (A) 0 %; HCT 29.7 % (39.0-53.0); HGB 9.5 gm/dL (13.0-17.5); Hypochromasia Slight; Lymphocytes # (A) 0.2 k/uL (1.0-4.8); Lymphocytes % (A) 1 %; MCH 30.6 pg (25.0-35.0); MCV 95.7 fL (80.0-100.0); Mean Platelet Volume 7.2; Monocytes # (A) 1.3 k/uL (0-1.0); Monocytes % (A) 8 %; Neutrophils # (A) 14.1 k/uL (1.3-7.7); Neutrophils % (A) 89 %; Platelet Count 155 k/uL (150-450); RDW 15.7 % (11.5-15.5); WBC 15.9 k/uL (3.8-10.6)
[2024-01-20 20:28] LABS: ALT 43 U/L (4-49); AST 67 U/L (17-59); African American GFR (CKD) >90 (>60 ml/min/1.73 sqM); Albumin 2.5 g/dL (3.5-5.0); Alkaline Phosphatase 113 U/L (38-126); Anion Gap 8 mmol/L; Blood Urea Nitrogen 18 mg/dL (9-20); Calcium 7.9 mg/dL (8.4-10.2); Carbon Dioxide 13 mmol/L (22-30); Chloride 92 mmol/L (98-107); Glucose 114 mg/dL (74-99); Magnesium 2.1 mg/dL (1.6-2.3); Non-African American GFR(CKD) 80 (>60 ml/min/1.73 sqM); Potassium 5.1 mmol/L (3.5-5.1); Total Bilirubin 3.5 mg/dL (0.2-1.3); Total Protein 5.4 g/dL (6.3-8.2)
[2024-01-20 20:33] LABS: Sodium 113 mmol/L (137-145)
[2024-01-20 20:34] LABS: INR 1.5 (<1.2); Partial Thromboplastin Time 33.6 sec (22.0-30.0); Prothrombin Time 15.7 sec (10.0-12.5)
[2024-01-20 20:37] LABS: NT-Pro-B-Type Natriuretic Pept 2010 pg/mL
--- NOTE | 2024-01-20 20:37 | XR ---
EXAMINATION TYPE: XR chest 2V DATE OF EXAM: 01/20/2024 8:32 PM CLINICAL INDICATION:Male, 63 years old with history of Weakness; [facility] COMPARISON: Chest radiographs from 08/16/2023 TECHNIQUE: XR chest 2V Frontal and lateral views of the chest. FINDINGS: Lungs/Pleura: There is no evidence of pleural effusion, focal consolidation, or pneumothorax. Pulmonary vascularity: Unremarkable. Heart/mediastinum: Cardiomediastinal silhouette is unremarkable. Musculoskeletal: No acute osseous pathology. IMPRESSION: No acute cardiopulmonary disease/process. [facility] Faye Driscoll, , 01/20/2024 8:35 PM
[2024-01-20] MEDS: MIDODRINE 5 MG TAB PO STA (21:21)
[2024-01-20] MEDS ORDERED: NALOXONE 0.4 MG/ML 1 ML VIAL IV PRN (22:52)
[2024-01-20] MEDS ORDERED: Potassium Replacement Protocol 1 EACH MISC MISCELLANE PRN (22:52)
[2024-01-20] MEDS ORDERED: Magnesium Replacement Protocol 1 EACH MISC MISCELLANE PRN (22:52)
[2024-01-20 23:37] LABS: Bacteria,Urine Occasional /hpf; Hyaline Casts,Urine 343 /lpf (0-2); Hyphae Yeast, Urine Rare /hpf; Mucus,Urine Many /hpf; RBC,Urine 4 /hpf (0-5); WBC,Urine 96 /hpf (0-5)
[2024-01-20 23:47] LABS: Appearance,Urine Cloudy (Clear); Bilirubin,Urine Negative (Negative); Blood,Urine Negative (Negative); Color,Urine Yellow; Glucose,Urine (UA) Negative (Negative); Ketones,Urine Negative (Negative); Leukocyte Esterase,Urine Moderate (Negative); Nitrite,Urine Negative (Negative); PH, Urine 5.5 (5.0-8.0); Protein,Urine Trace (Negative); Specific Gravity,Urine 1.022 (1.001-1.035)
[2024-01-20] MEDS: FUROSEMIDE 10 MG/ML 4 ML VIAL IV SCH (23:48)
--- NOTE | 2024-01-21 05:27 | P.CNPUL ---
History of Present Illness Consult date: 01/21/24 Requesting physician: Annika Virk Reason for consult: other (Severe hyponatremia; ICU management) Chief complaint: Falls, weakness History of present illness: Patient is a 63-year-old male with past medical history significant for liver cirrhosis, abdominal ascites with weekly paracentesis, pancreatitis, alcoholism, among other things. Of note, patient had a recent hospitalization August 2023 where he was weak and confused and found to have severe hyponatremia. He did require 3% sodium infusion and brief ICU admission at that time. Patient sent in from [facility] last night. Reportedly, had multiple falls over the past couple days. Last night, he was found on the ground. Patient reports that he may have been on the ground for 2 to 3 hours. States that his legs just gave out. Denies losing consciousness. Denies losing hitting his head. States he landed on his right shoulder, which is a little sore. No limitation in motion or obvious trauma. skin tears noted bilateral upper extremitites. He does appear to be in a positive fluid balance. Does take Lasix, Aldactone, and salt tablets on outpatient basis. Also, undergoes weekly paracentesis by IR, and his next paracentesis is scheduled for tomorrow. His abdomen is full and distended. Nontender. He has severe bilateral lower extremity edema. On arrival to the emergency department he was noted to be hypotensive, has missed all 3 of his doses of midodrine yesterday. CBC: WBC count 15.9, hemoglobin 9.5, hematocrit 29.7, platelets 155. Coagulation profile includes a PT of 15.7, INR of 1.5, APTT 33.6. CMP on arrival: Sodium 113, potassium 5.1, chloride 92, serum bicarb 13, BUN 18, creatinine 0.99, glucose 114. LFTs unremarkable. Urinalysis showing moderate leukocytes and occasional bacteria. Patient denies any troubles or difficulty urinating, no dysuria, no fevers, flank pain, hematuria. No polyuria or excessive water intake. No notable fluid losses. Generalized weakness and falls are chief symptoms. No confusion, seizures, coma. Hypothyroidism and adrenal insufficiency previously ruled out. Nephrology has been consulted, is requesting this patient be monitored in the intensive care unit in case he needs 3% hypertonic saline. Most recent sodium is 112, however, the Lasix is still not been given due to hypotension. Review of Systems Constitutional: Reports weight gain, Denies chills, Denies fever, Denies poor appetite, Denies weight loss Ears, nose, mouth and throat: Denies nasal congestion, Denies nasal discharge, Denies sinus pain, Denies sinus pressure, Denies sore throat Cardiovascular: Reports leg edema, Denies chest pain, Denies dyspnea on exertion, Denies orthopnea, Denies palpitations, Denies paroxysmal nocturnal dyspnea, Denies syncope Respiratory: Denies congestion, Denies cough, Denies cough with sputum, Denies excessive sputum Gastrointestinal: Denies abdominal pain, Denies coffee ground emesis, Denies constipation, Denies diarrhea, Denies hematemesis, Denies hematochezia, Denies melena, Denies nausea, Denies vomiting Genitourinary: Denies dysuria, Denies flank pain, Denies hematuria, Denies urina ry frequency, Denies urinary retention Musculoskeletal: Denies limitation of motion Integumentary: Denies rash Neurological: Denies balance difficulties, Denies change in mentation, Denies lack of coordination, Denies memory loss, Denies numbness, Denies paralysis, Denies paresthesias, Denies seizures, Denies syncope, Denies visual changes Psychiatric: Denies anxiety, Denies depression Endocrine: Denies polyuria Past Medical History Past Medical History: Hypertension, Liver Disease, Pneumonia Additional Past Medical History / Comment(s): Liver cirrhosis, splenomegaly, pancreatitis-pt states pancreatitis was side effect from Lisinopril, pt denies hx of alcoholism/drinking heavily, cellulitis with sepsis, ASCITES History of Any Multi-Drug Resistant Organisms: None Reported Past Surgical History: No Surgical Hx Reported Additional Past Surgical History / Comment(s): dental extraction, cataract bilateral - Pt states he was awake for both procedure and has never had general anesthesia Past Anesthesia/Blood Transfusion Reactions: No Reported Reaction, Unable to Obtain Additional Past Anesthesia/Blood Transfusion Reaction / Comment(s): Pt has never had anesthesia Past Psychological History: No Psychological Hx Reported Smoking Status: Never smoker Past Alcohol Use History: None Reported Past Drug Use History: None Reported - Past Family History Mother Family Medical History: Hypertension Additional Family Medical History / Comment(s): Mother lived to be 91 yrs old. Father Family Medical History: CVA/TIA Additional Family Medical History / Comment(s): Father of a CVA at the age of 65yrs. Son(s) Family Medical History: No Reported History Daughter(s) Family Medical History: No Reported History Medications and Allergies Home Medications Medication Instructions Recorded Confirmed Type Pantoprazole [Protonix] 40 mg PO AC-BRKFST tab 06/22/21 01/20/24 Rx Midodrine [ProAmatine] 5 mg PO TID 07/13/21 01/20/24 History Folic Acid 1 mg PO DAILY tab 07/18/21 01/20/24 Rx Potassium Chloride ER [K-Dur 20] 20 meq PO DAILY tablet 07/18/21 01/20/24 Rx Albuterol Inhaler [Ventolin Hfa 2 puff INHALATION RT-TID PRN 08/06/23 01/20/24 History Inhaler] Furosemide [Lasix] 40 mg PO DAILY tab 08/27/23 01/20/24 Rx Sodium Chloride Tab 1 gm PO BID 09/17/23 01/20/24 History traZODone HCL 150 mg PO HS 12/31/23 01/20/24 History Spironolactone [Aldactone] 50 mg PO BID #60 tab 01/05/24 01/20/24 Rx Allergies Allergy/AdvReac Type Severity Reaction Status Date / Time lisinopril AdvReac causes Verified 01/20/24 19:50 pancreatitis Physical Exam Vitals: Vital Signs Temp Pulse Resp BP Pulse Ox 01/21/24 01:51 95 16 91/66 100 01/21/24 01:30 96 19 95/67 100 01/21/24 01:15 108 H 19 99/76 100 01/21/24 01:00 110 H 18 88/53 100 01/21/24 00:45 106 H 17 73/61 100 01/21/24 00:39 107 H 18 73/61 100 01/21/24 00:20 17 86/37 100 01/21/24 00:02 98 14 82/71 100 01/21/24 00:00 105 H 16 90/68 100 01/20/24 23:40 112 H 16 92/79 100 01/20/24 23:30 99 16 95/64 100 01/20/24 23:23 111 H 16 95/64 100 01/20/24 23:07 105 H 19 110/74 100 01/20/24 23:00 106 H 19 79/67 100 01/20/24 22:32 107 H 17 84/64 100 01/20/24 22:00 118 H 17 102/67 100 01/20/24 21:16 121 H 17 82/67 100 01/20/24 19:20 98.2 F 101 H 16 118/90 98 01/20/24 19:04 98.8 F 130 H 20 118/90 100 Intake and Output 01/20/24 01/20/24 01/21/24 14:59 22:59 06:59 Other: Weight 81.647 kg GENERAL EXAM: Alert, 63-year-old white male, being evaluated in the emergency department. Abdomen is full with ascites. Comfortable in no apparent distress. HEAD: Normocephalic and atraumatic EYES: Normal reaction of pupils, equal size. NOSE: Clear with pink turbinates. THROAT: No erythema or exudates. NECK: No masses, no JVD. CHEST: No chest wall deformity. LUNGS: Equal air entry with no crackles, wheeze, rhonchi or dullness. On room air. No conversational dyspnea or accessory muscle use.. CVS: S1 and S2 normal with no audible murmur, regular rhythm. No extra heart sounds ABDOMEN: Abdomen is rounded distended, active bowel sounds, no hepatosplenomegaly, no guarding or rigidity. Large umbilical hernia SPINE: No scoliosis or deformity SKIN: No rashes. Bilateral upper extremity skin tears. CENTRAL NERVOUS SYSTEM: No focal deficits, tone is normal in all 4 extremities. EXTREMITIES: There is bilateral 3+ lower extremity edema. No clubbing, or cyanosis. Peripheral pulses are intact. Results - Laboratory Findings CBC and BMP: 01/21/24 05:15 01/21/24 05:15 PT/INR, D-dimer PT 15.7 sec (10.0-12.5) H 01/20/24 20:10 INR 1.5 (<1.2) H 01/20/24 20:10 Abnormal lab findings: Abnormal Labs 01/20/24 01/20/24 01/20/24 20:10 20:10 20:10 WBC 15.9 H RBC 3.10 L Hgb 9.5 L Hct 29.7 L RDW 15.7 H Neutrophils # 14.1 H Lymphocytes # 0.2 L Monocytes # 1.3 H PT 15.7 H INR 1.5 H APTT 33.6 H Sodium 113 L* Chloride 92 L Carbon Dioxide 13 L Glucose 114 H Plasma Lactic Acid Mason Calcium 7.9 L Total Bilirubin 3.5 H AST 67 H Creatine Kinase Total Protein 5.4 L Albumin 2.5 L Urine Protein Ur Leukocyte Esterase Urine WBC Urine WBC Clumps Urine Bacteria Hyaline Casts Urine Mucus 01/20/24 01/20/24 01/20/24 20:10 20:10 23:00 WBC RBC Hgb Hct RDW Neutrophils # Lymphocytes # Monocytes # PT INR APTT Sodium Chloride Carbon Dioxide Glucose Plasma Lactic Acid Mason 4.7 H* Calcium Total Bilirubin AST Creatine Kinase 42 L Total Protein Albumin Urine Protein Trace H Ur Leukocyte Esterase Moderate H Urine WBC 96 H Urine WBC Clumps Occasional H Urine Bacteria Occasional H Hyaline Casts 343 H Urine Mucus Many H 01/20/24 01/21/24 23:20 00:04 WBC RBC Hgb Hct RDW Neutrophils # Lymphocytes # Monocytes # PT INR APTT Sodium 112 L* Chloride Carbon Dioxide Glucose Plasma Lactic Acid Mason 2.5 H* Calcium Total Bilirubin AST Creatine Kinase Total Protein Albumin Urine Protein Ur Leukocyte Esterase Urine WBC Urine WBC Clumps Urine Bacteria Hyaline Casts Urine Mucus - Diagnostic Findings Chest x-ray: image reviewed Assessment and Plan Assessment: Hypotension, missing multiple doses of midodrine at home Severe hyponatremia, patient appears to have a positive fluid balance, likely hypervolemic Liver cirrhosis with abdominal ascites and weekly paracentesis Coagulopathy, secondary to above Acute leukocytosis, no obvious infectious process Non-anion gap metabolic acidosis Anemia of chronic disease, no overt signs of bleeding History of pancreatitis History of alcoholism Frequent falls Plan: Patient's medications, labs, imaging were reviewed Nephrology is managing patient's hyponatremia. Osmolality and urine studies pending. Fluid balance appears positive. Lasix has been restarted Sodium is being rechecked every 4 hours 24 sodium correction rate 4 to 6 mmol/L May require hypertonic saline infusion if no improvement Midodrine has been resumed, may require vasopressors if persistently hypotensive Consult interventional radiology for paracentesis Patient is going to be admitted to the intensive care unit once bed available I have personally seen and examined the patient, performed the documentation and the assessment and plan as written. Number of minutes spent on the visit:20 This is a drug evaluation that was done along with understanding discharge. This evaluation was done more than 30 minutes. In summary, the patient is known to have liver cirrhosis with stigmata of chronic liver failure and ascites and chronic hyponatremia. The patient presents with generalized weakness, falls, acute on top of chronic hyponatremia in addition to lethargy and suspected urinary tract infection. Has had increased abdominal girth suggestive of underlying ascites. The patient is currently on hypertonic saline running at 20 cm an hour. Follow-up sodium level is at 113. The white cell count is elevated at 22.5. Suspicion for underlying urinary tract infection. Spontaneous bacterial peritonitis is felt to be less likely. He is on room air oxygen. Chest x-ray is clear. Will start the patient on IV Rocephin. Will support his blood pressure. Will continue this for now. Will continue the hypertonic saline 3% saline solution 100 cc an hour. Consult nephrology. Hold Aldactone as patient is Hypokalemia calcium level. Monitor the white cell count. Will send ascitic fluid for culture after paracentesis. The patient will be kept in the ICU. Time with Patient: Greater than 30
[2024-01-21 05:47] LABS: African American GFR (CKD) 89 (>60 ml/min/1.73 sqM); Anion Gap 6 mmol/L; Blood Urea Nitrogen 21 mg/dL (9-20); Calcium 7.8 mg/dL (8.4-10.2); Carbon Dioxide 17 mmol/L (22-30); Chloride 90 mmol/L (98-107); Glucose 76 mg/dL (74-99); Non-African American GFR(CKD) 77 (>60 ml/min/1.73 sqM)
[2024-01-21 05:48] LABS: Potassium 5.7 mmol/L (3.5-5.1); Sodium 113 mmol/L (137-145)
[2024-01-21 06:15] LABS: Anisocytosis Slight; Basophils % (A) 0 %; Eosinophils % (A) 0 %; HCT 28.1 % (39.0-53.0); HGB 9.7 gm/dL (13.0-17.5); Lymphocytes # (A) 0.2 k/uL (1.0-4.8); Lymphocytes % (A) 1 %; MCH 31.9 pg (25.0-35.0); MCHC 34.4 g/dL (31.0-37.0); MCV 92.9 fL (80.0-100.0); Mean Platelet Volume 8.3; Monocytes # (A) 0.5 k/uL (0-1.0); Monocytes % (A) 2 %; Neutrophils # (A) 21.5 k/uL (1.3-7.7); Neutrophils % (A) 96 %; Platelet Count 147 k/uL (150-450); RBC 3.03 m/uL (4.30-5.90); RDW 16.2 % (11.5-15.5); WBC 22.5 k/uL (3.8-10.6)
[2024-01-21] MEDS: MIDODRINE 5 MG TAB PO SCH ×2 (07:13→12:35)
[2024-01-21] MEDS: PANTOPRAZOLE 40 MG TABLET PO SCH (07:13)
[2024-01-21 07:55] LABS: Glucose,Whole Blood 92 mg/dL (70-110)
[2024-01-21] MEDS: SODIUM CHLORIDE 3%(HYPERTONIC) 500 ML IV ONE ×2 (08:44→17:39)
[2024-01-21] MEDS: NOREPINEPHRINE 4 MG in SODIUM CHLORIDE 0.9% 250 ML IV SCH (10:56)
[2024-01-21 12:00] LABS: Potassium 5.7 mmol/L (3.5-5.1); Total Protein 4.7 g/dL (6.3-8.2)
--- NOTE | 2024-01-21 12:20 | P.NPCON ---
History of Present Illness - Reason for Consult hyponatremia - History of Present Illness Patient is a 63-year-old male with history of liver cirrhosis and previous admission with hyponatremia.patient is admitted to the hospital with history of falls recently. He is at [facility]. Currently maintained on weekly paracentesis. Patient was hypotensive in the ER with systolic blood pressure in the 70s and 80s. He is maintained on midodrine which has been increased. Patient was also maintained on Lasix as outpatient. Serum sodium was 113 on admission. It initially improved to 115 and dropped again to 113 this morning. Urine output has decreased to 5-10 mL per hour. Serum potassium 5.7. No complaints of shortness of breath. Review of Systems as per HPI Past Medical History Past Medical History: Hypertension, Liver Disease, Pneumonia Additional Past Medical History / Comment(s): Liver cirrhosis, splenomegaly, pancreatitis-pt states pancreatitis was side effect from Lisinopril, pt denies hx of alcoholism/drinking heavily, cellulitis with sepsis, ASCITES History of Any Multi-Drug Resistant Organisms: None Reported Past Surgical History: No Surgical Hx Reported Additional Past Surgical History / Comment(s): dental extraction, cataract bilateral - Pt states he was awake for both procedure and has never had general anesthesia Past Anesthesia/Blood Transfusion Reactions: No Reported Reaction, Unable to Obtain Additional Past Anesthesia/Blood Transfusion Reaction / Comment(s): Pt has never had anesthesia Past Psychological History: No Psychological Hx Reported Smoking Status: Never smoker Past Alcohol Use History: None Reported Past Drug Use History: None Reported - Past Family History Mother Family Medical History: Hypertension Additional Family Medical History / Comment(s): Mother lived to be 91 yrs old. Father Family Medical History: CVA/TIA Additional Family Medical History / Comment(s): Father of a CVA at the age of 65yrs. Son(s) Family Medical History: No Reported History Daughter(s) Family Medical History: No Reported History Medications and Allergies Home Medications Medication Instructions Recorded Confirmed Type Pantoprazole [Protonix] 40 mg PO AC-BRKFST tab 06/22/21 01/20/24 Rx Midodrine [ProAmatine] 5 mg PO TID 07/13/21 01/20/24 History Folic Acid 1 mg PO DAILY tab 07/18/21 01/20/24 Rx Potassium Chloride ER [K-Dur 20] 20 meq PO DAILY tablet 07/18/21 01/20/24 Rx Albuterol Inhaler [Ventolin Hfa 2 puff INHALATION RT-TID PRN 08/06/23 01/20/24 History Inhaler] Furosemide [Lasix] 40 mg PO DAILY tab 08/27/23 01/20/24 Rx Sodium Chloride Tab 1 gm PO BID 09/17/23 01/20/24 History traZODone HCL 150 mg PO HS 12/31/23 01/20/24 History Spironolactone [Aldactone] 50 mg PO BID #60 tab 01/05/24 01/20/24 Rx Allergies Allergy/AdvReac Type Severity Reaction Status Date / Time lisinopril AdvReac causes Verified 01/20/24 19:50 pancreatitis Physical Exam Vitals: Vital Signs Temp Pulse Resp BP Pulse Ox 01/21/24 11:00 92 16 100/61 99 01/21/24 10:30 94 16 92/56 100 01/21/24 10:00 92 15 97/57 100 01/21/24 09:30 92 22 103/49 100 01/21/24 09:00 95 18 88/68 100 01/21/24 08:30 94 18 99 01/21/24 08:00 98.0 F 98 16 105/57 98 01/21/24 07:55 104 H 20 97/65 100 01/21/24 06:58 105 H 144 H 90/54 100 01/21/24 06:30 107 H 19 93/63 99 01/21/24 06:16 106 H 16 93/63 99 01/21/24 05:02 109 H 16 93/63 100 01/21/24 04:16 111 H 16 91/57 100 01/21/24 03:45 106 H 18 85/62 100 01/21/24 03:30 105 H 17 96/58 100 01/21/24 03:15 101 H 18 86/60 100 01/21/24 03:07 104 H 14 86/60 100 01/21/24 03:00 104 H 17 103/66 100 01/21/24 02:31 98 14 84/56 100 01/21/24 01:51 95 16 91/66 100 01/21/24 01:30 96 19 95/67 100 01/21/24 01:15 108 H 19 99/76 100 01/21/24 01:00 110 H 18 88/53 100 01/21/24 00:45 106 H 17 73/61 100 01/21/24 00:39 107 H 18 73/61 100 01/21/24 00:20 17 86/37 100 01/21/24 00:02 98 14 82/71 100 01/21/24 00:00 105 H 16 90/68 100 01/20/24 23:40 112 H 16 92/79 100 01/20/24 23:30 99 16 95/64 100 01/20/24 23:23 111 H 16 95/64 100 01/20/24 23:07 105 H 19 110/74 100 01/20/24 23:00 106 H 19 79/67 100 01/20/24 22:32 107 H 17 84/64 100 01/20/24 22:00 118 H 17 102/67 100 01/20/24 21:16 121 H 17 82/67 100 01/20/24 19:20 98.2 F 101 H 16 118/90 98 01/20/24 19:04 98.8 F 130 H 20 118/90 100 Intake and Output 01/20/24 01/21/24 01/21/24 22:59 06:59 14:59 Intake Total 60 Output Total 100 35 Balance -100 25 Intake: IV 60 Sodium Chloride 3%( 60 Hypertonic) 500 ml @ 20 mls/hr IV .Q24H ONE Rx#: [id number] Output: Urine 100 35 Other: Voiding Method Indwelling Catheter Weight 81.647 kg 80.6 kg patient is awake, comfortable. No acute distress. Examination of the heart S1 and S2 Examination of the lungs decreased breath sounds at the bases Abdomen is soft distended Examination of lower extremity shows edema 2+ bilaterally Results - Lab Results Most recent lab results Calcium 7.8 mg/dL (8.4-10.2) L 01/21/24 05:15 Magnesium 2.1 mg/dL (1.6-2.3) 01/20/24 20:10 01/21/24 05:15 01/21/24 11:20 Assessment and Plan Assessment: 1. Hyponatremia associated with liver cirrhosis. Currently significant edema. Patient was maintained on Lasix which was held as patient is significantly hypotensive. He is maintained on midodrine. I will challenge with 1 L fluid bolus as there is significant acute kidney injury and oliguria. 2. Acute kidney injury, oliguric, ATN versus hepatorenal syndrome 3. Alcoholic liver cirrhosis 4. Non-gap metabolic acidosis secondary to acute kidney injury 5. Hyperkalemia associated with acute kidney injury Plan: hold 3% saline and bolus with 1 L normal saline. If serum sodium does not improve 3% saline will be restarted. Continue with albumin and add Sandostatin for hepatorenal syndrome. Repeat sodium in 4 hours Continue with antibiotics. Continue midodrine Overall prognosis is guarded. Thank you for the consultation. We will continue to follow the patient with you during his hospitalization.
[2024-01-21] MEDS: SODIUM CHLORIDE 0.9% 1,000 ML IV ONE (12:34)
[2024-01-21] MEDS: ALBUMIN HUMAN 25% 50 ML in EMPTY BAG 1 BAG IVPB ONE (14:00)
--- NOTE | 2024-01-21 14:00 | P.HPIM ---
History of Present Illness H&P Date: 01/21/24 Chief Complaint: Severe symptomatic hyponatremia HISTORY OF PRESENT ILLNESS: This is a 63 year old male with a previous medical history significant for hypertension and hypertensive cardiovascular disease, hyperlipidemia, history of pancreatitis in the past along with prior history of sepsis due to cellulitis about 2 year ago, history of chronic alcoholic hepatitis with alcoholic liver cirrhosis for which he has been following with Dr. Smith as an outpatient and has been getting a weekly paracentesis at [facility] every Friday, patient was recently hospitalized at [facility] from two 01/05 2024 for significant hyponatremia with a sodium level as low as 118, patient was treated with fluid restriction as well as salt tablets, and he was treated with IV diuretics in the form of Lasix and spironolactone, his sodium got as good as 123, I believe the patient does have reset osmostat at this point in time, and he has a new baseline at around 04/29/2024, patient was brought into the emergency department at [facility] this time because of recurrent falls over the last few weeks with increased falls 3 times, he fell against his right shoulder, he has limited range of motion of the right shoulder, patient has minimal bruises in the right knee, he has significant bruising in the left hip, he does appear to have edema in the abdomen as well as the upper thigh, he does not appear to have a significant edema both lower extremities, initially was started on Lasix 40 mg IV push every 12 hours, and the patient was having good urine output, his sodium went up to 115, then the patient sodium went down to 114 after he was given 60 cc of 3% hypertonic solution, therefore he was taken off that after nephrology seen the patient, and he was started on normal saline 1 L over the next hour, recheck his sodium level at 330, he was also started on Sandostatin 100 mcg IV push every 8 hours for hepatorenal syndrome, patient was admitted to the hospital he was also found to have a significant leukocytosis he was started on ceftriaxone, he had paracentesis in the ICU and his fluid were sent for cell count and differential rule out spontaneous bacterial peritonitis patient does not appear to have any fever or chills at this time he does not have any fever at this point in time either. REVIEW OF SYSTEMS: Constitutional: No documented fever, no chills, no night sweats. No weight change. positive for weakness, positive for fatigue or lethargy. No daytime sleepiness. HEENT: No headache. No blurred vision or double vision, no loss of vision. No loss of Hearing, no ringing in the ears, no dizziness. No nasal drainage or congestion. No epistaxis. No sore throat. Lungs: No shortness of breath, no cough, no sputum production. No wheezing. Reports dyspnea with activity. Cardiovascular: No chest pain, positive for lower extremity edema. No palpitations. No paroxysmal nocturnal dyspnea. No orthopnea. No light headedness or dizziness. No syncopal episodes. Abdominal: Reports no abdominal pain. No nausea, vomiting. no diarrhea. No constipation. No bloody or tarry stools reports loss of appetite. Genitourinary: No dysuria, increased frequency, urgency. No urinary retention. Musculoskeletal: No myalgias. positive for muscle weakness, no gait dysfunction, no frequent falls. No back pain. No neck pain. Integumentary: No wounds, no lesions. No rash or pruritus. Positive for unusual bruising. No change in hair or nails. Positive for ecchymosis of the right knee. Neurologic: No aphasia. No facial droop. No change in mentation. No head injury. No headache. No paralysis. No paresthesia. Psychiatric: No depression. No anxiety. No mood swings. Endocrine: No abnormal blood sugars. No weight change. PAST MEDICAL HISTORY: Hypertension and hypertensive cardiovascular disease Hyperlipidemia. History of pancreatitis Chronic alcoholic hepatitis Liver cirrhosis with ascites status post weekly paracentesis. GERD. osteoarthritis. PAST SURGICAL HISTORY: No surgery. SOCIAL HISTORY: Patient is a lifelong nonsmoker, he drinks about 3-4 beers on a daily basis, was counseled about alcohol cessation many many times in the past unfortunately he continues to drink despite his alcoholic liver cirrhosis. He denies any marijuana use or abuse he denies any drug use or abuse. FAMILY HISTORY: Mother at age of 91 from old age and she had a history of hypertension, father at age 65 from CVA. Patient has 2 sons no major medical problems, and one daughter no major medical problems. PHYSICAL EXAMINATION: General: 63-year-old male laying down in bed in no apparent distress HEENT: Head is atraumatic, normocephalic, pupils were equal round reactive to light and recommendation, extraocular muscle movement were intact, sclera are deeply icteric, conjunctivae were pale, mucous membranes of the mouth are somewhat dry. Neck: Supple, no JVP, normal carotid upstroke bilaterally, no lymphadenopathy. Chest: Decreased breath sounds at the bases, few rhonchi, no expiratory wheezes, no chest wall tenderness, no intercostal retractions. Heart: First heart sound is normal, second heart sounds normal there is BLANCA 2/6 located at the left sternal border Abdomen: Soft, distended mild ascites, no tenderness, positive bowel sounds. Extremities: There is +1 edema no calf tenderness DP +2 bilaterally. Neurologic examination: Patient is awake alert and oriented X 3, cranial nerves II-12 appear grossly intact, muscle power were 5 out of 5 in upper extremities and 5 out of 5 in bilateral lower extremities, deep tendon reflexes normal bilaterally. ASSESSMENT AND PLAN: 1. 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 Patient was taken off Lasix as the patient became quite hypotensive, his midodrine was increased to 10 mg orally 3 times every day, patient will be given a challenge with normal saline 1 L over 1 hour, repeat sodium level at 330 this afternoon, if the sodium does not improve despite the salt tablets as well as fluid restriction patient will need to be started on Samsca 7.5 mg x 1 may repeat the next 24 hours. The goal is to raise his sodium level to 118 over the next 18 hours. Nephrology is following. 2. Leukocytosis likely etiology. Rule out spontaneous bacterial peritonitis. Fluid were sent for cell count and differential continue ceftriaxone 1 g piggyback every 24 hours. 3. Acute kidney injury due to acute tubular necrosis and vasomotor nephropathy . Monitor the patient CMP over the next 24 hours, patient did receive 1 L of IV fluid over the next 1 hour. 4. Hyperkalemia due to acute kidney injury due to ATN and the use of spironolactone. Patient did receive Lokelma 10 g orally times 1 repeat potassium level as well. 5. None anion gap metabolic acidosis. Monitor the patient CMP over the next 24 hours. 6. Chronic liver cirrhosis with recurrence ascites. Status post weekly paracentesis. he just had 1 today. 7. Hepatorenal syndrome. Patient was started on Sandostatin 100 mcg IV push every 8 hours. 8. GERD. Continue patient on Protonix 40 mg orally once every day. 9. DVT prophylaxis. Bilateral knee-high TAMI hose. 10. Orthostatic hypotension continue patient on midodrine 10 mg orally 3 times every day. 11. Right shoulder pain likely related to rotator cuff tear we will check his x-ray when the patient is more stable. 12. Medical debility due to underlying liver cirrhosis physical therapy evaluation. 13. Admitted to inpatient. Estimate a length of stay 2 midnights. 14. Patient is full code. Past Medical History Past Medical History: Hypertension, Liver Disease, Pneumonia Additional Past Medical History / Comment(s): Liver cirrhosis, splenomegaly, pancreatitis-pt states pancreatitis was side effect from Lisinopril, pt denies hx of alcoholism/drinking heavily, cellulitis with sepsis, ASCITES History of Any Multi-Drug Resistant Organisms: None Reported Past Surgical History: No Surgical Hx Reported Additional Past Surgical History / Comment(s): dental extraction, cataract bilateral - Pt states he was awake for both procedure and has never had general anesthesia Past Anesthesia/Blood Transfusion Reactions: No Reported Reaction, Unable to Obtain Additional Past Anesthesia/Blood Transfusion Reaction / Comment(s): Pt has never had anesthesia Past Psychological History: No Psychological Hx Reported Smoking Status: Never smoker Past Alcohol Use History: None Reported Past Drug Use History: None Reported - Past Family History Mother Family Medical History: Hypertension Additional Family Medical History / Comment(s): Mother lived to be 91 yrs old. Father Family Medical History: CVA/TIA Additional Family Medical History / Comment(s): Father of a CVA at the age of 65yrs. Son(s) Family Medical History: No Reported History Daughter(s) Family Medical History: No Reported History Medications and Allergies Home Medications Medication Instructions Recorded Confirmed Type Pantoprazole [Protonix] 40 mg PO AC-BRKFST tab 06/22/21 01/20/24 Rx Midodrine [ProAmatine] 5 mg PO TID 07/13/21 01/20/24 History Folic Acid 1 mg PO DAILY tab 07/18/21 01/20/24 Rx Potassium Chloride ER [K-Dur 20] 20 meq PO DAILY tablet 07/18/21 01/20/24 Rx Albuterol Inhaler [Ventolin Hfa 2 puff INHALATION RT-TID PRN 08/06/23 01/20/24 History Inhaler] Furosemide [Lasix] 40 mg PO DAILY tab 08/27/23 01/20/24 Rx Sodium Chloride Tab 1 gm PO BID 09/17/23 01/20/24 History traZODone HCL 150 mg PO HS 12/31/23 01/20/24 History Spironolactone [Aldactone] 50 mg PO BID #60 tab 01/05/24 01/20/24 Rx Allergies Allergy/AdvReac Type Severity Reaction Status Date / Time lisinopril AdvReac causes Verified 01/20/24 19:50 pancreatitis Physical Exam Vitals: Vital Signs Temp Pulse Resp BP Pulse Ox 01/21/24 13:00 86 15 108/54 99 01/21/24 12:30 90 17 99 01/21/24 12:00 98.3 F 86 15 114/58 98 01/21/24 11:30 89 26 H 97 01/21/24 11:00 92 16 100/61 99 01/21/24 10:30 94 16 92/56 100 01/21/24 10:00 92 15 97/57 100 01/21/24 09:30 92 22 103/49 100 01/21/24 09:00 95 18 88/68 100 01/21/24 08:30 94 18 99 01/21/24 08:00 98.0 F 98 16 105/57 98 01/21/24 07:55 104 H 20 97/65 100 01/21/24 06:58 105 H 144 H 90/54 100 01/21/24 06:30 107 H 19 93/63 99 01/21/24 06:16 106 H 16 93/63 99 01/21/24 05:02 109 H 16 93/63 100 01/21/24 04:16 111 H 16 91/57 100 01/21/24 03:45 106 H 18 85/62 100 01/21/24 03:30 105 H 17 96/58 100 01/21/24 03:15 101 H 18 86/60 100 01/21/24 03:07 104 H 14 86/60 100 01/21/24 03:00 104 H 17 103/66 100 01/21/24 02:31 98 14 84/56 100 01/21/24 01:51 95 16 91/66 100 01/21/24 01:30 96 19 95/67 100 01/21/24 01:15 108 H 19 99/76 100 10/16/24 01:00 110 H 18 88/53 100 01/21/24 00:45 106 H 17 73/61 100 01/21/24 00:39 107 H 18 73/61 100 01/21/24 00:20 17 86/37 100 01/21/24 00:02 98 14 82/71 100 01/21/24 00:00 105 H 16 90/68 100 01/20/24 23:40 112 H 16 92/79 100 01/20/24 23:30 99 16 95/64 100 01/20/24 23:23 111 H 16 95/64 100 01/20/24 23:07 105 H 19 110/74 100 01/20/24 23:00 106 H 19 79/67 100 01/20/24 22:32 107 H 17 84/64 100 01/20/24 22:00 118 H 17 102/67 100 01/20/24 21:16 121 H 17 82/67 100 01/20/24 19:20 98.2 F 101 H 16 118/90 98 01/20/24 19:04 98.8 F 130 H 20 118/90 100 Intake and Output 01/20/24 01/21/24 01/21/24 22:59 06:59 14:59 Intake Total 70 Output Total 100 3175 Balance -100 -3105 Intake: IV 70 Sodium Chloride 3%( 70 Hypertonic) 500 ml @ 20 mls/hr IV .Q24H ONE Rx#: [id number] Output: Urine 100 75 Other 3100 Other: Voiding Method Indwelling Catheter Weight 81.647 kg 80.6 kg Results CBC & Chem 7: 01/21/24 05:15 01/21/24 11:20 Labs: Abnormal Lab Results - Last 24 Hours (Table) 01/20/24 01/20/24 01/20/24 Range/Units 20:10 20:10 20:10 WBC 15.9 H (3.8-10.6) k/uL RBC 3.10 L (4.30-5.90) m/uL Hgb 9.5 L (13.0-17.5) gm/dL Hct 29.7 L (39.0-53.0) % RDW 15.7 H (11.5-15.5) % Plt Count (150-450) k/uL Neutrophils # 14.1 H (1.3-7.7) k/uL Lymphocytes # 0.2 L (1.0-4.8) k/uL Monocytes # 1.3 H (0-1.0) k/uL PT 15.7 H (10.0-12.5) sec INR 1.5 H (<1.2) APTT 33.6 H (22.0-30.0) sec Sodium 113 L* (137-145) mmol/L Potassium (3.5-5.1) mmol/L Chloride 92 L (98-107) mmol/L Carbon Dioxide 13 L (22-30) mmol/L BUN (9-20) mg/dL Glucose 114 H (74-99) mg/dL Osmolality 244 A* (275-295) mOsm/kg Plasma Lactic Acid Mason (0.7-2.0) mmol/L Calcium 7.9 L (8.4-10.2) mg/dL Total Bilirubin 3.5 H (0.2-1.3) mg/dL AST 67 H (17-59) U/L Creatine Kinase (55-170) U/L Total Protein 5.4 L (6.3-8.2) g/dL Albumin 2.5 L (3.5-5.0) g/dL Urine Protein (Negative) Ur Leukocyte Esterase (Negative) Urine WBC (0-5) /hpf Urine WBC Clumps (None) /hpf Urine Bacteria (None) /hpf Hyaline Casts (0-2) /lpf Urine Mucus (None) /hpf Ur Random Sodium (40-220) mmol/L 01/20/24 01/20/24 01/20/24 Range/Units 20:10 20:10 23:00 WBC (3.8-10.6) k/uL RBC (4.30-5.90) m/uL Hgb (13.0-17.5) gm/dL Hct (39.0-53.0) % RDW (11.5-15.5) % Plt Count (150-450) k/uL Neutrophils # (1.3-7.7) k/uL Lymphocytes # (1.0-4.8) k/uL Monocytes # (0-1.0) k/uL PT (10.0-12.5) sec INR (<1.2) APTT (22.0-30.0) sec Sodium (137-145) mmol/L Potassium (3.5-5.1) mmol/L Chloride (98-107) mmol/L Carbon Dioxide (22-30) mmol/L BUN (9-20) mg/dL Glucose (74-99) mg/dL Osmolality (275-295) mOsm/kg Plasma Lactic Acid Mason 4.7 H* (0.7-2.0) mmol/L Calcium (8.4-10.2) mg/dL Total Bilirubin (0.2-1.3) mg/dL AST (17-59) U/L Creatine Kinase 42 L (55-170) U/L Total Protein (6.3-8.2) g/dL Albumin (3.5-5.0) g/dL Urine Protein Trace H (Negative) Ur Leukocyte Esterase Moderate H (Negative) Urine WBC 96 H (0-5) /hpf Urine WBC Clumps Occasional H (None) /hpf Urine Bacteria Occasional H (None) /hpf Hyaline Casts 343 H (0-2) /lpf Urine Mucus Many H (None) /hpf Ur Random Sodium (40-220) mmol/L 01/20/24 01/20/24 01/21/24 Range/Units 23:00 23:20 00:04 WBC (3.8-10.6) k/uL RBC (4.30-5.90) m/uL Hgb (13.0-17.5) gm/dL Hct (39.0-53.0) % RDW (11.5-15.5) % Plt Count (150-450) k/uL Neutrophils # (1.3-7.7) k/uL Lymphocytes # (1.0-4.8) k/uL Monocytes # (0-1.0) k/uL PT (10.0-12.5) sec INR (<1.2) APTT (22.0-30.0) sec Sodium 112 L* (137-145) mmol/L Potassium (3.5-5.1) mmol/L Chloride (98-107) mmol/L Carbon Dioxide (22-30) mmol/L BUN (9-20) mg/dL Glucose (74-99) mg/dL Osmolality (275-295) mOsm/kg Plasma Lactic Acid Mason 2.5 H* (0.7-2.0) mmol/L Calcium (8.4-10.2) mg/dL Total Bilirubin (0.2-1.3) mg/dL AST (17-59) U/L Creatine Kinase (55-170) U/L Total Protein (6.3-8.2) g/dL Albumin (3.5-5.0) g/dL Urine Protein (Negative) Ur Leukocyte Esterase (Negative) Urine WBC (0-5) /hpf Urine WBC Clumps (None) /hpf Urine Bacteria (None) /hpf Hyaline Casts (0-2) /lpf Urine Mucus (None) /hpf Ur Random Sodium <20 L (40-220) mmol/L 01/21/24 01/21/24 01/21/24 Range/Units 04:05 05:15 05:15 WBC 22.5 H (3.8-10.6) k/uL RBC 3.03 L (4.30-5.90) m/uL Hgb 9.7 L (13.0-17.5) gm/dL Hct 28.1 L (39.0-53.0) % RDW 16.2 H (11.5-15.5) % Plt Count 147 L (150-450) k/uL Neutrophils # 21.5 H (1.3-7.7) k/uL Lymphocytes # 0.2 L (1.0-4.8) k/uL Monocytes # (0-1.0) k/uL PT (10.0-12.5) sec INR (<1.2) APTT (22.0-30.0) sec Sodium 115 L* 113 L* (137-145) mmol/L Potassium 5.7 H (3.5-5.1) mmol/L Chloride 90 L (98-107) mmol/L Carbon Dioxide 17 L (22-30) mmol/L BUN 21 H (9-20) mg/dL Glucose (74-99) mg/dL Osmolality (275-295) mOsm/kg Plasma Lactic Acid Mason (0.7-2.0) mmol/L Calcium 7.8 L (8.4-10.2) mg/dL Total Bilirubin (0.2-1.3) mg/dL AST (17-59) U/L Creatine Kinase (55-170) U/L Total Protein (6.3-8.2) g/dL Albumin (3.5-5.0) g/dL Urine Protein (Negative) Ur Leukocyte Esterase (Negative) Urine WBC (0-5) /hpf Urine WBC Clumps (None) /hpf Urine Bacteria (None) /hpf Hyaline Casts (0-2) /lpf Urine Mucus (None) /hpf Ur Random Sodium (40-220) mmol/L 01/21/24 01/21/24 01/21/24 Range/Units 08:44 11:20 11:20 WBC (3.8-10.6) k/uL RBC (4.30-5.90) m/uL Hgb (13.0-17.5) gm/dL Hct (39.0-53.0) % RDW (11.5-15.5) % Plt Count (150-450) k/uL Neutrophils # (1.3-7.7) k/uL Lymphocytes # (1.0-4.8) k/uL Monocytes # (0-1.0) k/uL PT (10.0-12.5) sec INR (<1.2) APTT (22.0-30.0) sec Sodium 113 L* 114 L* (137-145) mmol/L Potassium 5.7 H (3.5-5.1) mmol/L Chloride (98-107) mmol/L Carbon Dioxide (22-30) mmol/L BUN (9-20) mg/dL Glucose (74-99) mg/dL Osmolality (275-295) mOsm/kg Plasma Lactic Acid Mason (0.7-2.0) mmol/L Calcium (8.4-10.2) mg/dL Total Bilirubin (0.2-1.3) mg/dL AST (17-59) U/L Creatine Kinase (55-170) U/L Total Protein 4.7 L (6.3-8.2) g/dL Albumin (3.5-5.0) g/dL Urine Protein (Negative) Ur Leukocyte Esterase (Negative) Urine WBC (0-5) /hpf Urine WBC Clumps (None) /hpf Urine Bacteria (None) /hpf Hyaline Casts (0-2) /lpf Urine Mucus (None) /hpf Ur Random Sodium (40-220) mmol/L Thrombosis Risk Factor Assmnt - Choose All That Apply Any of the Below Risk Factors Present?: Yes Each Factor Represents 1 point: Swollen legs (current) Other Risk Factors: Yes Each Risk Factor Represents 2 Points: Age 61-74 years Other congenital or acquired thrombophilia - If yes, enter type in comment: No Thrombosis Risk Factor Assessment Total Risk Factor Score: 3 Thrombosis Risk Factor Assessment Level: Moderate Risk
[2024-01-21] MEDS: SODIUM ZIRCONIUM CYCLOSILICATE 10 GM PACKET PO ONE (14:47)
--- NOTE | 2024-01-21 14:50 | P.PCN ---
Date of Procedure: 01/21/24 Preoperative Diagnosis: Liver cirrhosis, ascites, hypotension Postoperative Diagnosis: Same Procedure(s) Performed: Paracentesis, femoral triple-lumen catheter insertion Anesthesia: local Surgeon: Yas Lino Estimated Blood Loss (ml): 0 Pathology: other Condition: critical Disposition: ICU Operative Findings: Paracentesis A time-out was performed. My hands were washed immediately prior to the procedure. I wore a surgical cap, mask with protective eyewear, sterile gown and sterile gloves throughout the procedure. The area was cleansed and draped in usual sterile fashion using chlorhexidine scrub. Anesthesia was achieved with 1% lidocaine. The right lower part of the abdomen was prepped and draped in a sterile fashion using chlorhexidine scrub. 1% lidocaine was used to numb the skin, soft tissue and peritoneum. The paracentesis catheter was inserted and advanced with negative pressure until 2 mL of yellowish colored fluid was aspirated. Approximately 60 mL of ascitic fluid was collected and sent for laboratory analysis. The catheter was then connected to the vaccutainer and 3 liters of additional ascitic fluid were drained. The catheter was removed and no leaking was noted. A bandaid was placed over the puncture wound. The patient tolerated the procedure well without any immediate complications. Estimated blood loss was 0 Central line insertion Indication: Hemodynamic monitoring/Intravenous access. A time-out was completed verifying correct patient, procedure, site, positioning, and implant(s) or special equipment if applicable. The patient was placed in a dependent position appropriate for triple lumen catheter placement based on the vein to be cannulated. The patient's right femoral area was prepped and draped in sterile fashion. 1% Lidocaine was used to anesthetize the surrounding skin area. A triple lumen 9F Cordis catheter was introduced into the femoral vein using Seldinger technique. The catheter was threaded smoothly over the guide wire and appropriate blood return was obtained. Each lumen of the catheter was evacuated of air and flushed with sterile saline. The catheter was then sutured in place to the skin and a sterile dressing applied. Perfusion to the extremity distal to the point of catheter insertion was checked and found to be adequate.
[2024-01-21] MEDS: OCTREOTIDE 100 MCG/ML INJ IVP SCH (16:31)
[2024-01-21] MEDS ORDERED: SODIUM CHLORIDE TAB 1 GM TAB PO SCH (21:00)
[2024-01-21] MEDS ORDERED: FUROSEMIDE 10 MG/ML 4 ML VIAL IV SCH (21:00)
[2024-01-21 22:22] LABS: Potassium 5.2 mmol/L (3.5-5.1)
[2024-01-22 02:52] LABS: Appearance,BF Hazy (Clear)
[2024-01-22] MEDS ORDERED: ZINC OXIDE PASTE (Z-GUARD) 1 APPLIC TOPICAL PRN (04:02)
[2024-01-22 06:24] LABS: Basophils % (A) 0 %; Eosinophils % (A) 0 %; HCT 28.4 % (39.0-53.0); HGB 9.1 gm/dL (13.0-17.5); Lymphocytes # (A) 0.2 k/uL (1.0-4.8); Lymphocytes % (A) 1 %; MCHC 32.2 g/dL (31.0-37.0); MCV 96.3 fL (80.0-100.0); Mean Platelet Volume 7.5; Monocytes # (A) 1.5 k/uL (0-1.0); Monocytes % (A) 9 %; Neutrophils # (A) 15.5 k/uL (1.3-7.7); Neutrophils % (A) 88 %; RBC 2.95 m/uL (4.30-5.90); RDW 15.9 % (11.5-15.5); WBC 17.6 k/uL (3.8-10.6)
[2024-01-22 06:46] LABS: ALT 50 U/L (4-49); AST 76 U/L (17-59); African American GFR (CKD) 85 (>60 ml/min/1.73 sqM); Albumin 2.3 g/dL (3.5-5.0); Alkaline Phosphatase 107 U/L (38-126); Anion Gap 6 mmol/L; Blood Urea Nitrogen 24 mg/dL (9-20); Calcium 7.6 mg/dL (8.4-10.2); Carbon Dioxide 14 mmol/L (22-30); Chloride 96 mmol/L (98-107); Glucose 84 mg/dL (74-99); Non-African American GFR(CKD) 74 (>60 ml/min/1.73 sqM); Potassium 5.1 mmol/L (3.5-5.1); Total Protein 4.8 g/dL (6.3-8.2)
[2024-01-22 06:48] LABS: Sodium 116 mmol/L (137-145)
[2024-01-22 06:53] LABS: Platelet Count 80 k/uL (150-450)
[2024-01-22] MEDS: SODIUM CHLORIDE TAB 1 GM TAB PO STA (08:00)
[2024-01-22] MEDS: FOLIC ACID 1 MG TAB PO SCH (08:04)
[2024-01-22] MEDS: ALBUTEROL NEBULIZED 2.5 MG/3 ML INHALATION PRN (08:28)
[2024-01-22] MEDS ORDERED: FUROSEMIDE 10 MG/ML 4 ML VIAL IV SCH (09:00)
[2024-01-22] MEDS: SODIUM BICARB 8.4% 50 ML SYR (1 MEQ/ML) IV STA (10:25)
[2024-01-22] MEDS: SODIUM CHLORIDE 0.9% 1,000 ML IV ONE (11:15)
[2024-01-22 11:50] LABS: African American GFR (CKD) 85 (>60 ml/min/1.73 sqM); Anion Gap 7 mmol/L; Blood Urea Nitrogen 25 mg/dL (9-20); Calcium 7.2 mg/dL (8.4-10.2); Carbon Dioxide 18 mmol/L (22-30); Chloride 93 mmol/L (98-107); Glucose 106 mg/dL (74-99); Non-African American GFR(CKD) 73 (>60 ml/min/1.73 sqM); Potassium 4.7 mmol/L (3.5-5.1)
[2024-01-22 11:56] LABS: Sodium 118 mmol/L (137-145)
--- NOTE | 2024-01-22 12:40 | P.PN ---
Subjective patient is seen for follow-up for hyponatremia. He remains on 3% saline. Serum sodium improved to 118. Blood cultures were reported positive for MRSA. Patient received lower bolus yesterday and will receive another liter of fluid bolus today. Status post IV bicarb this morning and CO2 was 14. Urine output remains at about 10 ML per hour. No significant complaints. Patient is asking to increase his allowance for water. Objective - Vital Signs Vital signs: Vital Signs Temp 98.9 F 01/22/24 04:00 Pulse 134 H 01/22/24 11:30 Resp 13 01/22/24 11:30 BP 87/47 01/22/24 11:30 Pulse Ox 98 01/22/24 11:30 FiO2 Intake & Output 01/21/24 01/22/24 01/22/24 18:59 06:59 18:59 Intake Total 6784 497 6664 Output Total 3280 135 50 Balance -5235 090 7972 Weight 80.6 kg 81 kg Intake: IV 1260 90 1180 Albumin Human 25% 50 ml 50 In Empty Bag 1 bag @ 50 mls/hr IVPB ONCE ONE Rx#: [id number] Invasive Line 2 90 90 30 Sodium Chloride 0.9% 1, 1000 000 ml @ 999 mls/hr IV . Q1H1M ONE Rx#:[id number] Sodium Chloride 0.9% 1, 1000 000 ml @ 999 mls/hr IV . Q1H1M ONE Rx#:[id number] Sodium Chloride 3%( 70 Hypertonic) 500 ml @ 20 mls/hr IV .Q24H ONE Rx#: [id number] Sodium Chloride 3%( 100 Hypertonic) 500 ml @ 20 mls/hr IV .Q24H ONE Rx#: [id number] cefTRIAXone 1 gm In 50 50 Sodium Chloride 0.9% 50 ml @ 100 mls/hr IVPB Q24HR [facility] Rx#:[id number] Intake, IV Titration 220 20 Amount Sodium Chloride 3%( 220 20 Hypertonic) 500 ml @ 20 mls/hr IV .Q24H ONE Rx#: [id number] Oral 480 500 240 Output: Urine 180 135 50 Other 3100 Other: Voiding Method Indwelling Catheter Indwelling Catheter Indwelling Catheter # Bowel Movements 0 0 - Exam patient is awake, comfortable, no acute distress. Examination of the heart S1 and S2 Examination of the lungs bilateral breath sounds are heard Abdomen is soft nontender Examination of lower extremity shows edema 1+ bilaterally - Labs CBC & Chem 7: 01/22/24 05:53 01/22/24 11:27 Labs: Abnormal Lab Results - Last 24 Hours (Table) 01/21/24 01/21/24 01/21/24 Range/Units 12:00 15:30 21:33 WBC (3.8-10.6) k/uL RBC (4.30-5.90) m/uL Hgb (13.0-17.5) gm/dL Hct (39.0-53.0) % RDW (11.5-15.5) % Plt Count (150-450) k/uL Neutrophils # (1.3-7.7) k/uL Lymphocytes # (1.0-4.8) k/uL Monocytes # (0-1.0) k/uL Sodium 114 L* 113 L* (137-145) mmol/L Potassium (3.5-5.1) mmol/L Chloride (98-107) mmol/L Carbon Dioxide (22-30) mmol/L BUN (9-20) mg/dL Glucose (74-99) mg/dL Calcium (8.4-10.2) mg/dL Total Bilirubin (0.2-1.3) mg/dL AST (17-59) U/L ALT (4-49) U/L Total Protein (6.3-8.2) g/dL Albumin (3.5-5.0) g/dL Fluid Appearance Hazy A (Clear) 01/21/24 01/22/24 01/22/24 Range/Units 21:33 01:30 05:53 WBC (3.8-10.6) k/uL RBC (4.30-5.90) m/uL Hgb (13.0-17.5) gm/dL Hct (39.0-53.0) % RDW (11.5-15.5) % Plt Count (150-450) k/uL Neutrophils # (1.3-7.7) k/uL Lymphocytes # (1.0-4.8) k/uL Monocytes # (0-1.0) k/uL Sodium 117 L* 116 L* (137-145) mmol/L Potassium 5.2 H (3.5-5.1) mmol/L Chloride 96 L (98-107) mmol/L Carbon Dioxide 14 L (22-30) mmol/L BUN 24 H (9-20) mg/dL Glucose (74-99) mg/dL Calcium 7.6 L (8.4-10.2) mg/dL Total Bilirubin 3.0 H (0.2-1.3) mg/dL AST 76 H (17-59) U/L ALT 50 H (4-49) U/L Total Protein 4.8 L (6.3-8.2) g/dL Albumin 2.3 L (3.5-5.0) g/dL Fluid Appearance (Clear) 01/22/24 01/22/24 Range/Units 05:53 11:27 WBC 17.6 H (3.8-10.6) k/uL RBC 2.95 L (4.30-5.90) m/uL Hgb 9.1 L (13.0-17.5) gm/dL Hct 28.4 L (39.0-53.0) % RDW 15.9 H (11.5-15.5) % Plt Count 80 L (150-450) k/uL Neutrophils # 15.5 H (1.3-7.7) k/uL Lymphocytes # 0.2 L (1.0-4.8) k/uL Monocytes # 1.5 H (0-1.0) k/uL Sodium 118 L* (137-145) mmol/L Potassium (3.5-5.1) mmol/L Chloride 93 L (98-107) mmol/L Carbon Dioxide 18 L (22-30) mmol/L BUN 25 H (9-20) mg/dL Glucose 106 H (74-99) mg/dL Calcium 7.2 L (8.4-10.2) mg/dL Total Bilirubin (0.2-1.3) mg/dL AST (17-59) U/L ALT (4-49) U/L Total Protein (6.3-8.2) g/dL Albumin (3.5-5.0) g/dL Fluid Appearance (Clear) Microbiology - Last 24 Hours (Table) 01/21/24 11:20 Blood Culture Gram Stain - Preliminary Blood Blood Culture - Preliminary Molecular ID 01/21/24 12:00 Gram Stain - Preliminary Ascites Fluid Assessment and Plan Assessment: 1. Hyponatremia associated with liver cirrhosis. Currently with edema. Patient was maintained on Lasix which was held as patient is significantly hypotensive. Maintained on 3% saline 2. Acute kidney injury, oliguric, ATN versus hepatorenal syndrome 3. Alcoholic liver cirrhosis 4. Non-gap metabolic acidosis secondary to acute kidney injury 5. Hyperkalemia associated with acute kidney injury 6. Non-gap metabolic acidosis 7. MRSA bacteremia Plan: repeat 1 L fluid bolus Continue with 3% saline Repeat sodium in 4 hours. Add oral sodium bicarb continue antibiotics
[2024-01-22] MEDS ORDERED: VANCOMYCIN IV PER PHARMACY 1 EACH MISC MISCELLANE PRN (14:37)
--- NOTE | 2024-01-22 14:44 | P.PN ---
Subjective Progress Note Date: 01/22/24 Patient is a 63-year-old male with past medical history significant for liver cirrhosis, abdominal ascites with weekly paracentesis, pancreatitis, alcoholism, among other things. Of note, patient had a recent hospitalization August 2023 where he was weak and confused and found to have severe hyponatremia. He did require 3% sodium infusion and brief ICU admission at that time. Patient sent in from [facility] last night. Reportedly, had multiple falls over the past couple days. Last night, he was found on the ground. Patient reports that he may have been on the ground for 2 to 3 hours. States that his legs just gave out. Denies losing consciousness. Denies losing hitting his head. States he landed on his right shoulder, which is a little sore. No limitation in motion or obvious trauma. skin tears noted bilateral upper extremitites. He does appear to be in a positive fluid balance. Does take Lasix, Aldactone, and salt tablets on outpatient basis. Also, undergoes weekly paracentesis by IR, and his next paracentesis is scheduled for tomorrow. His abdomen is full and distended. Nontender. He has severe bilateral lower extremity edema. On arrival to the emergency department he was noted to be hypotensive, has missed all 3 of his doses of midodrine yesterday. CBC: WBC count 15.9, hemoglobin 9.5, hematocrit 29.7, platelets 155. Coagulation profile includes a PT of 15.7, INR of 1.5, APTT 33.6. CMP on arrival: Sodium 113, potassium 5.1, chloride 92, serum bicarb 13, BUN 18, creatinine 0.99, glucose 114. LFTs unremarkable. Urinalysis showing moderate leukocytes and occasional bacteria. Patient denies any troubles or difficulty urinating, no dysuria, no fevers, flank pain, hematuria. No polyuria or excessive water intake. No notable fluid losses. Generalized weakness and falls are chief symptoms. No confusion, seizures, coma. Hypothyroidism and adrenal insufficiency previously ruled out. Nephrology has been consulted, is requesting this patient be monitored in the intensive care unit in case he needs 3% hypertonic saline. Most recent sodium is 112, however, the Lasix is still not been given due to hypotension. On 01/22/2024, patient is being seen for a follow-up. Awake and alert. No significant respiratory distress. The patient is currently on room air oxygen with a pulse ox of 98%. Abdominal paracentesis was done yesterday and the fluid was negative for infection. Culture still pending. Earlier this morning, the patient is on hypertonic saline 3% which is running at 20 cc an hour. Sodium level was 116 and subsequently upon 918. He has 1.07. The patient has a serum bicarb of 14. Patient will be given IV bicarb 100 mL equivalents total IV and she will be started on oral bicarb supplements. Urine output is in order of 10 cc an hour. Blood culture was positive for MRSA. Rocephin was discontinued and the patient was started on vancomycin. The patient is also on midodrine. The patient is on octreotide. Objective - Vital Signs Vital signs: Vital Signs Temp 98.9 F 01/22/24 04:00 Pulse 104 H 01/22/24 08:40 Resp 16 01/22/24 08:00 BP 112/69 01/22/24 08:00 Pulse Ox 95 01/22/24 08:00 FiO2 Intake & Output 01/21/24 01/22/24 01/22/24 18:59 06:59 18:59 Intake Total 1740 810 360 Output Total 3280 135 25 Balance -1540 675 335 Weight 80.6 kg 81 kg Intake: IV 1260 90 100 Albumin Human 25% 50 ml 50 In Empty Bag 1 bag @ 50 mls/hr IVPB ONCE ONE Rx#: [id number] Invasive Line 2 90 90 30 Sodium Chloride 0.9% 1, 1000 000 ml @ 999 mls/hr IV . Q1H1M [facility] Rx#:[id number] Sodium Chloride 3%( 70 Hypertonic) 500 ml @ 20 mls/hr IV .Q24H [facility] Rx#: [id number] Sodium Chloride 3%( 20 Hypertonic) 500 ml @ 20 mls/hr IV .Q24H [facility] Rx#: [id number] cefTRIAXone 1 gm In 50 50 Sodium Chloride 0.9% 50 ml @ 100 mls/hr IVPB Q24HR [facility] Rx#:[id number] Intake, IV Titration 220 20 Amount Sodium Chloride 3%( 220 20 Hypertonic) 500 ml @ 20 mls/hr IV .Q24H [facility] Rx#: [id number] Oral 480 500 240 Output: Urine 180 135 25 Other 3100 Other: Voiding Method Indwelling Catheter Indwelling Catheter Indwelling Catheter # Bowel Movements 0 0 - Exam GENERAL EXAM: Alert, 63-year-old white male, being evaluated in the emergency department. Abdomen is full with ascites. Comfortable in no apparent distress. HEAD: Normocephalic and atraumatic EYES: Normal reaction of pupils, equal size. NOSE: Clear with pink turbinates. THROAT: No erythema or exudates. NECK: No masses, no JVD. CHEST: No chest wall deformity. LUNGS: Equal air entry with no crackles, wheeze, rhonchi or dullness. On room air. No conversational dyspnea or accessory muscle use.. CVS: S1 and S2 normal with no audible murmur, regular rhythm. No extra heart sounds ABDOMEN: Abdomen is rounded distended, active bowel sounds, no hepatosplenomegaly, no guarding or rigidity. Large umbilical hernia SPINE: No scoliosis or deformity SKIN: No rashes. Bilateral upper extremity skin tears. CENTRAL NERVOUS SYSTEM: No focal deficits, tone is normal in all 4 extremities. EXTREMITIES: There is bilateral 3+ lower extremity edema. No clubbing, or cyanosis. Peripheral pulses are intact. - Labs CBC & Chem 7: 01/22/24 05:53 01/22/24 11:27 Labs: Abnormal Lab Results - Last 24 Hours (Table) 01/21/24 01/21/24 01/21/24 Range/Units 11:20 11:20 12:00 WBC (3.8-10.6) k/uL RBC (4.30-5.90) m/uL Hgb (13.0-17.5) gm/dL Hct (39.0-53.0) % RDW (11.5-15.5) % Plt Count (150-450) k/uL Neutrophils # (1.3-7.7) k/uL Lymphocytes # (1.0-4.8) k/uL Monocytes # (0-1.0) k/uL Sodium 114 L* (137-145) mmol/L Potassium 5.7 H (3.5-5.1) mmol/L Chloride (98-107) mmol/L Carbon Dioxide (22-30) mmol/L BUN (9-20) mg/dL Calcium (8.4-10.2) mg/dL Total Bilirubin (0.2-1.3) mg/dL AST (17-59) U/L ALT (4-49) U/L Total Protein 4.7 L (6.3-8.2) g/dL Albumin (3.5-5.0) g/dL Fluid Appearance Hazy A (Clear) 01/21/24 01/21/24 01/21/24 Range/Units 15:30 21:33 21:33 WBC (3.8-10.6) k/uL RBC (4.30-5.90) m/uL Hgb (13.0-17.5) gm/dL Hct (39.0-53.0) % RDW (11.5-15.5) % Plt Count (150-450) k/uL Neutrophils # (1.3-7.7) k/uL Lymphocytes # (1.0-4.8) k/uL Monocytes # (0-1.0) k/uL Sodium 114 L* 113 L* (137-145) mmol/L Potassium 5.2 H (3.5-5.1) mmol/L Chloride (98-107) mmol/L Carbon Dioxide (22-30) mmol/L BUN (9-20) mg/dL Calcium (8.4-10.2) mg/dL Total Bilirubin (0.2-1.3) mg/dL AST (17-59) U/L ALT (4-49) U/L Total Protein (6.3-8.2) g/dL Albumin (3.5-5.0) g/dL Fluid Appearance (Clear) 01/22/24 01/22/24 01/22/24 Range/Units 01:30 05:53 05:53 WBC 17.6 H (3.8-10.6) k/uL RBC 2.95 L (4.30-5.90) m/uL Hgb 9.1 L (13.0-17.5) gm/dL Hct 28.4 L (39.0-53.0) % RDW 15.9 H (11.5-15.5) % Plt Count 80 L (150-450) k/uL Neutrophils # 15.5 H (1.3-7.7) k/uL Lymphocytes # 0.2 L (1.0-4.8) k/uL Monocytes # 1.5 H (0-1.0) k/uL Sodium 117 L* 116 L* (137-145) mmol/L Potassium (3.5-5.1) mmol/L Chloride 96 L (98-107) mmol/L Carbon Dioxide 14 L (22-30) mmol/L BUN 24 H (9-20) mg/dL Calcium 7.6 L (8.4-10.2) mg/dL Total Bilirubin 3.0 H (0.2-1.3) mg/dL AST 76 H (17-59) U/L ALT 50 H (4-49) U/L Total Protein 4.8 L (6.3-8.2) g/dL Albumin 2.3 L (3.5-5.0) g/dL Fluid Appearance (Clear) Microbiology - Last 24 Hours (Table) 01/21/24 12:00 Gram Stain - Preliminary Ascites Fluid Assessment and Plan Assessment: Hypotension, rule out septic in nature as the patient blood cultures positive for staph, rule out underlying MRSA. Exact source of infection is not clear. As the fluid was drained and there is no evidence of SBP. Severe hyponatremia, the patient's sodium level is at 118 and the patient is is on hypertonic 3% saline solution Liver cirrhosis with abdominal ascites and weekly paracentesis, last paracentesis was done 01/21/2020 for a total of 3 to 4 L of fluid was aspirated. Coagulopathy, secondary to above Acute leukocytosis, no obvious infectious process Non-anion gap metabolic acidosis Anemia of chronic disease, no overt signs of bleeding History of pancreatitis History of alcoholism Frequent falls Plan: Patient will be given another liter of normal saline and following that the patient will be started on pressors if needed. Continue Rocephin and add vancomycin pending further cultures from the blood Continue hypertonic saline at 3% and monitor sodium closely Midodrine to be continued Nephrology on the case Will continue to follow
[2024-01-22] MEDS: VANCOMYCIN 1,500 MG in SODIUM CHLORIDE 0.9% 500 ML 500 ML IVPB SCH (15:29)
[2024-01-22 16:19] LABS: African American GFR (CKD) 80 (>60 ml/min/1.73 sqM); Anion Gap 8 mmol/L; Blood Urea Nitrogen 25 mg/dL (9-20); Calcium 7.1 mg/dL (8.4-10.2); Carbon Dioxide 14 mmol/L (22-30); Chloride 96 mmol/L (98-107); Glucose 151 mg/dL (74-99); Non-African American GFR(CKD) 70 (>60 ml/min/1.73 sqM); Potassium 4.6 mmol/L (3.5-5.1)
[2024-01-22 16:23] LABS: Sodium 118 mmol/L (137-145)
[2024-01-22] MEDS: SODIUM CHLORIDE 3%(HYPERTONIC) 500 ML IV SCH (18:34)
[2024-01-22] MEDS: METOPROLOL TARTRATE 12.5 MG TAB PO SCH (20:17)
[2024-01-22] MEDS: SODIUM BICARBONATE TAB 650 MG TAB PO SCH (20:17)
--- NOTE | 2024-01-23 00:29 | CONS ---
CONSULTATION HISTORY OF PRESENT ILLNESS: This is a 63-year-old gentleman with history of alcoholic liver disease, hypertension, dyslipidemia, and episodes of pancreatitis, who presented to hospital having had recurrent falls at home. He has severe hyponatremia and is admitted to ICU for the same and is currently being managed by Dr. Cho. I have been consulted because of atrial fibrillation. The patient had several EKGs that revealed atrial fibrillation with somewhat of a poorly controlled ventricular rate. There is no prior history of atrial fibrillation. There is no other history of coronary artery disease or congestive heart failure. The patient is hypotensive and is currently on pressors for the same. Heart rate is varying between 110 to 120 beats per minute, irregularly irregular. I instructed the ICU nurse to start metoprolol 12.5 t.i.d. and told her that his elevated heart rate could be partly contributing to the hypotension, hence controlling the heart rate might actually improve the blood pressure. The patient is not a candidate for anticoagulation because of history of chronic liver disease and history of recurrent falls. PAST MEDICAL HISTORY: Significant for chronic liver disease. MEDICATIONS: As charted. FAMILY HISTORY: Negative for premature coronary artery disease. SOCIAL HISTORY: Negative for current smoking. There is history of ETOH abuse. There is no history of drug abuse. REVIEW OF SYSTEMS: A 14 out of 14 review of systems has been performed. Pertinents are as documented. PHYSICAL EXAMINATION: GENERAL: Patient is appearing comfortable at rest. Alert, oriented, and very comfortable in bed. VITAL SIGNS: Heart rate is 115 beats per minute, irregularly irregular. Blood pressure is 96/60, respiratory rate is 18. CHEST: Diminished air entry at the bases. HEART: First and second heart sounds. Irregular rhythm. There is no murmur. ABDOMEN: Soft. EXTREMITIES: Bilateral 1+ pitting edema. LABORATORY AND IMAGING DATA: I reviewed the labs. I reviewed EKGs. ASSESSMENT: 1. Persistent atrial fibrillation with poorly controlled ventricular rate. 2. Severe hyponatremia. 3. History of chronic liver disease. 4. History of recurrent falls. 5. Hypotension. 6. Septicemia. PLAN: The patient is not a candidate for anticoagulation, hence I am not going to start him on heparin. I will start him on a small dose of metoprolol. Hopefully this will control the heart rate better and might even improve the blood pressure with a controlled ventricular rate. I will check an echocardiogram to evaluate the LV function. MMODL / IJN: [id number] /
[2024-01-23 04:02] LABS: Anisocytosis Slight; HGB 9.2 gm/dL (13.0-17.5); Hypochromasia Moderate; MCH 30.7 pg (25.0-35.0); MCHC 31.6 g/dL (31.0-37.0); MCV 97.3 fL (80.0-100.0); Macrocytosis Slight; Mean Platelet Volume 7.5; RBC 2.98 m/uL (4.30-5.90); RDW 16.1 % (11.5-15.5); WBC 22.9 k/uL (3.8-10.6)
[2024-01-23 04:34] LABS: Platelet Count 125 k/uL (150-450)
[2024-01-23 05:01] LABS: African American GFR (CKD) 79 (>60 ml/min/1.73 sqM); Anion Gap 5 mmol/L; Blood Urea Nitrogen 27 mg/dL (9-20); Calcium 7.1 mg/dL (8.4-10.2); Carbon Dioxide 15 mmol/L (22-30); Chloride 101 mmol/L (98-107); Glucose 113 mg/dL (74-99); Non-African American GFR(CKD) 68 (>60 ml/min/1.73 sqM); Potassium 4.5 mmol/L (3.5-5.1); Sodium 121 mmol/L (137-145)
[2024-01-23 05:36] LABS: Band Neutrophils % 6 %; Lymphocytes # (M) 1.15 k/uL (1.0-4.8); Monocytes # (M) 0.69 k/uL (0-1.0); Neutrophils % (M) 86 %; Nucleated Red Blood Cells 0 /100 WBC (0-0); Total Cells Counted 100
[2024-01-23 05:43] LABS: Tear Drop Cells Present
--- NOTE | 2024-01-23 10:18 | P.PN ---
Subjective Progress Note Date: 01/23/24 History of present illness: Per Dr. Smith's consult note, " patient is a 63-year-old gentleman with history of alcoholic liver disease, hypertension, dyslipidemia, and episodes of pancreatitis, who presented to the hospital having had recurrent falls at home over the past few days. He was found to have severe hyponatremia and is admitted to the ICU for medical management. Cardiology was consulted because patient developed new onset atrial fibrillation with RVR. Patient had EKGs that revealed atrial fibrillation with somewhat of a poorly controlled ventricular rate. Patient does not have any prior history of atrial fibrillation. There is no other history of coronary artery disease or congestive heart failure. The patient is hypotensive and is currently on pressors for the same. Heart rate is varying between 110 to 120 bpm, irregularly irregular. I instructed the ICU nurse to start metoprolol 12.5 3 times daily and told her that his elevated heart rate could be partly contributing to the hypotension, hence controlling the heart rate might actually improve the blood pressure. The patient is not a candidate for anticoagulation because of history of chronic liver disease and history of recurrent falls." Family history is negative for premature coronary artery disease. Social history is negative for current smoking. There is history of alcohol abuse. There is no history of drug abuse. Patient is significant for chronic liver disease. Previous cardiac workup: Patient had an echocardiogram performed in 2019 which showed ejection fraction of greater than 55%. No previous documentation of stress tests or cardiac catheterization. Progress note: 01/23/2024 Patient was seen this morning in the ICU. Reports no complaints at this time. Patient denied any fever, chills, lightheadedness, dizziness, chest pain, shortness of breath, nausea, vomiting, leg swelling, diarrhea. Patient still remaining atrial fibrillation with controlled ventricular response. His heart rate has been ranging from 90s to 100 this morning. He is currently on metoprolol tartrate 12.5 mg p.o. 3 times daily. Patient's blood pressure has been low, the latest blood pressure measurement was 88/45. CBC showed white blood count of 22.9, hemoglobin 9.2, hematocrit 29, platelet 125. CMP showed so dium 121, potassium 4.5, chloride 101, carbon dioxide 15, BUN 27, creatinine 1.13, glucose 113. Echo has been taken, waiting for results. Physical examination: GENERAL: This is a 63-year-old in no apparent distress at the time of examination. Pleasant and cooperative. HEENT: Head is atraumatic, normocephalic. Pupils are equal, round, and reactive to light. Sclerae anicteric. Conjunctivae are clear. Mucus membranes of the mouth are moist. Neck is supple. RESPIRATORY: Clear to auscultation. No wheezes, rales, or rhonchi. No use of accessory muscles. Patient maintaining oxygen saturation greater than 92%. No chest wall tenderness is noted on palpation or with deep breathing. CARDIOVASCULAR: Regular rate and rhythm. S1 and S2 noted. No systolic or diastolic murmur auscultated. No JVD noted. No S3 or S4 noted. GASTROINTESTINAL: No distention noted. Abdomen soft and round. Normal active bowel sounds auscultated x 4 quadrants. No pain or tenderness noted upon palpation. INTEGUMENTARY: No cyanosis. No jaundice. No rashes noted. No cellulitis noted. EXTREMITIES: 2+ peripheral pulses. No evidence of peripheral edema. No calf tenderness noted. NEUROLOGIC: Detailed neurological examination was not assessed. PSYCHIATRIC: Awake, alert, and oriented X 3. Appropriate affect. Intact judgement and insight. Assessment: 1. Persistent atrial fibrillation with poorly controlled ventricular rate 2. Severe hyponatremia 3. History of chronic liver disease 4. History of recurrent falls 5. Hypotension 6. Septicemia Plan: We will continue with metoprolol tartrate 12.5 mg p.o. 3 times daily. Patient is not a candidate for anticoagulation because of history of recurrent falls and chronic liver disease. We will continue to monitor the patient. Pending echocardiogram results. Objective - Vital Signs Vital signs: Vital Signs Temp 97.3 F L 01/23/24 06:30 Pulse 100 01/23/24 07:00 Resp 27 H 01/23/24 07:00 BP 99/60 01/23/24 07:00 Pulse Ox 97 01/23/24 07:00 FiO2 Intake & Output 01/22/24 01/23/24 01/23/24 18:59 06:59 18:59 Intake Total 3455.265 978.200 505 Output Total 90 85 5 Balance 3365.265 893.200 500 Weight 86.7 kg Intake: IV 1865 300 25 Invasive Line 1 20 Invasive Line 2 90 Sodium Chloride 0.9% 1, 1000 000 ml @ 999 mls/hr IV . Q1H1M [facility] Rx#:[id number] Sodium Chloride 3%( 205 Hypertonic) 500 ml @ 20 mls/hr IV .Q24H [facility] Rx#: [id number] Sodium Chloride 3%( 300 25 Hypertonic) 500 ml @ 25 mls/hr IV .Q20H [facility] Rx#: [id number] Vancomycin 1,500 mg In 500 Sodium Chloride 0.9% 500 ml 500 ml @ 167 mls/hr IVPB Q12HR [facility] Rx#: [id number] cefTRIAXone 1 gm In 50 Sodium Chloride 0.9% 50 ml @ 100 mls/hr IVPB Q24HR [facility] Rx#:[id number] Intake, IV Titration 110.265 678.200 Amount Norepinephrine 4 mg In 90.265 178.200 Sodium Chloride 0.9% 250 ml @ 0.03 MCG/KG/MIN 9. 332 mls/hr IV .Q24H [facility] Rx#:[id number] Sodium Chloride 3%( 20 Hypertonic) 500 ml @ 20 mls/hr IV .Q24H [facility] Rx#: [id number] Vancomycin 1,500 mg In 500 Sodium Chloride 0.9% 500 ml 500 ml @ 167 mls/hr IVPB Q12HR [facility] Rx#: [id number] Oral 1480 480 Output: Urine 90 85 5 Other: Voiding Method Indwelling Catheter Indwelling Catheter # Bowel Movements 0 - Labs CBC & Chem 7: 01/23/24 03:15 01/23/24 03:15 Labs: Abnormal Lab Results - Last 24 Hours (Table) 01/22/24 01/22/24 01/22/24 Range/Units 11:27 15:20 22:08 WBC (3.8-10.6) k/uL RBC (4.30-5.90) m/uL Hgb (13.0-17.5) gm/dL Hct (39.0-53.0) % RDW (11.5-15.5) % Plt Count (150-450) k/uL Neutrophils # (Manual) (1.3-7.7) k/uL Sodium 118 L* 118 L* 121 L (137-145) mmol/L Chloride 93 L 96 L (98-107) mmol/L Carbon Dioxide 18 L 14 L (22-30) mmol/L BUN 25 H 25 H (9-20) mg/dL Glucose 106 H 151 H (74-99) mg/dL Calcium 7.2 L 7.1 L (8.4-10.2) mg/dL 01/23/24 01/23/24 01/23/24 Range/Units 03:09 03:15 03:15 WBC 22.9 H (3.8-10.6) k/uL RBC 2.98 L (4.30-5.90) m/uL Hgb 9.2 L (13.0-17.5) gm/dL Hct 29.0 L (39.0-53.0) % RDW 16.1 H (11.5-15.5) % Plt Count 125 L D (150-450) k/uL Neutrophils # (Manual) 21.00 H (1.3-7.7) k/uL Sodium 120 L 121 L (137-145) mmol/L Chloride (98-107) mmol/L Carbon Dioxide 15 L (22-30) mmol/L BUN 27 H (9-20) mg/dL Glucose 113 H (74-99) mg/dL Calcium 7.1 L (8.4-10.2) mg/dL Microbiology - Last 24 Hours (Table) 01/21/24 12:00 Gram Stain - Preliminary Ascites Fluid Body Fluid Culture - Preliminary 01/21/24 11:20 Blood Culture Gram Stain - Preliminary Blood Blood Culture - Preliminary Molecular ID
[2024-01-23] MEDS: TOLVAPTAN 15 MG TABLET PO ONE (12:49)
--- NOTE | 2024-01-23 13:09 | P.PN ---
Subjective Progress Note Date: 01/23/24 Patient is a 63-year-old male with past medical history significant for liver cirrhosis, abdominal ascites with weekly paracentesis, pancreatitis, alcoholism, among other things. Of note, patient had a recent hospitalization August 2023 where he was weak and confused and found to have severe hyponatremia. He did require 3% sodium infusion and brief ICU admission at that time. Patient sent in from [facility] last night. Reportedly, had multiple falls over the past couple days. Last night, he was found on the ground. Patient reports that he may have been on the ground for 2 to 3 hours. States that his legs just gave out. Denies losing consciousness. Denies losing hitting his head. States he landed on his right shoulder, which is a little sore. No limitation in motion or obvious trauma. skin tears noted bilateral upper extremitites. He does appear to be in a positive fluid balance. Does take Lasix, Aldactone, and salt tablets on outpatient basis. Also, undergoes weekly paracentesis by IR, and his next paracentesis is scheduled for tomorrow. His abdomen is full and distended. Nontender. He has severe bilateral lower extremity edema. On arrival to the emergency department he was noted to be hypotensive, has missed all 3 of his doses of midodrine yesterday. CBC: WBC count 15.9, hemoglobin 9.5, hematocrit 29.7, platelets 155. Coagulation profile includes a PT of 15.7, INR of 1.5, APTT 33.6. CMP on arrival: Sodium 113, potassium 5.1, chloride 92, serum bicarb 13, BUN 18, creatinine 0.99, glucose 114. LFTs unremarkable. Urinalysis showing moderate leukocytes and occasional bacteria. Patient denies any troubles or difficulty urinating, no dysuria, no fevers, flank pain, hematuria. No polyuria or excessive water intake. No notable fluid losses. Generalized weakness and falls are chief symptoms. No confusion, seizures, coma. Hypothyroidism and adrenal insufficiency previously ruled out. Nephrology has been consulted, is requesting this patient be monitored in the intensive care unit in case he needs 3% hypertonic saline. Most recent sodium is 112, however, the Lasix is still not been given due to hypotension. On 01/22/2024, patient is being seen for a follow-up. Awake and alert. No significant respiratory distress. The patient is currently on room air oxygen with a pulse ox of 98%. Abdominal paracentesis was done yesterday and the fluid was negative for infection. Culture still pending. Earlier this morning, the patient is on hypertonic saline 3% which is running at 20 cc an hour. Sodium level was 116 and subsequently upon 918. He has 1.07. The patient has a serum bicarb of 14. Patient will be given IV bicarb 100 mL equivalents total IV and she will be started on oral bicarb supplements. Urine output is in order of 10 cc an hour. Blood culture was positive for MRSA. Rocephin was discontinued and the patient was started on vancomycin. The patient is also on midodrine. The patient is on octreotide. 01/23/2024, the patient is being seen for a follow-up. The patient is awake and alert and the patient remains on room air oxygen. He did have staff aureus bacteremia the patient is currently on vancomycin. He remains hypotensive and the patient is currently on low-dose norepinephrine which is running at 0.08 mcg/kg/min. The patient remains on hypertonic saline 3% running at 20 cc an hour and the patient's sodium level is at 121. He does have some ascites. Urine output is in order of 20 cc an hour. White cell count of 22.9 with a hemoglobin 9.2. No evidence of any GI bleeding. No evidence of any encephalopathy. BUN is 27 with a creatinine of 1.1 and a potassium of is at 4.5. Remains on IV Rocephin and vancomycin. Remains on midodrine. Remains on pressors. Remains on octreotide. Objective - Vital Signs Vital signs: Vital Signs Temp 97.3 F L 01/23/24 06:30 Pulse 100 01/23/24 07:00 Resp 27 H 01/23/24 07:00 BP 99/60 01/23/24 07:00 Pulse Ox 97 01/23/24 07:00 FiO2 Intake & Output 01/22/24 01/23/24 01/23/24 18:59 06:59 18:59 Intake Total 3455.265 978.200 505 Output Total 90 85 5 Balance 3365.265 893.200 500 Weight 86.7 kg Intake: IV 1865 300 25 Invasive Line 1 20 Invasive Line 2 90 Sodium Chloride 0.9% 1, 1000 000 ml @ 999 mls/hr IV . Q1H1M [facility] Rx#:[id number] Sodium Chloride 3%( 205 Hypertonic) 500 ml @ 20 mls/hr IV .Q24H [facility] Rx#: [id number] Sodium Chloride 3%( 300 25 Hypertonic) 500 ml @ 25 mls/hr IV .Q20H [facility] Rx#: [id number] Vancomycin 1,500 mg In 500 Sodium Chloride 0.9% 500 ml 500 ml @ 167 mls/hr IVPB Q12HR [facility] Rx#: [id number] cefTRIAXone 1 gm In 50 Sodium Chloride 0.9% 50 ml @ 100 mls/hr IVPB Q24HR [facility] Rx#:[id number] Intake, IV Titration 110.265 678.200 Amount Norepinephrine 4 mg In 90.265 178.200 Sodium Chloride 0.9% 250 ml @ 0.03 MCG/KG/MIN 9. 332 mls/hr IV .Q24H [facility] Rx#:[id number] Sodium Chloride 3%( 20 Hypertonic) 500 ml @ 20 mls/hr IV .Q24H [facility] Rx#: [id number] Vancomycin 1,500 mg In 500 Sodium Chloride 0.9% 500 ml 500 ml @ 167 mls/hr IVPB Q12HR [facility] Rx#: [id number] Oral 1480 480 Output: Urine 90 85 5 Other: Voiding Method Indwelling Catheter Indwelling Catheter # Bowel Movements 0 - Exam GENERAL EXAM: Alert, 63-year-old white male, being evaluated in the emergency department. Abdomen is full with ascites. Comfortable in no apparent distress. HEAD: Normocephalic and atraumatic EYES: Normal reaction of pupils, equal size. NOSE: Clear with pink turbinates. THROAT: No erythema or exudates. NECK: No masses, no JVD. CHEST: No chest wall deformity. LUNGS: Equal air entry with no crackles, wheeze, rhonchi or dullness. On room air. No conversational dyspnea or accessory muscle use.. CVS: S1 and S2 normal with no audible murmur, regular rhythm. No extra heart sounds ABDOMEN: Abdomen is rounded distended, active bowel sounds, no hepatosplenomegaly, no guarding or rigidity. Large umbilical hernia SPINE: No scoliosis or deformity SKIN: No rashes. Bilateral upper extremity skin tears. CENTRAL NERVOUS SYSTEM: No focal deficits, tone is normal in all 4 extremities. EXTREMITIES: There is bilateral 3+ lower extremity edema. No clubbing, or cyanosis. Peripheral pulses are intact. - Labs CBC & Chem 7: 01/23/24 03:15 01/23/24 10:30 Labs: Abnormal Lab Results - Last 24 Hours (Table) 01/22/24 01/22/24 01/22/24 Range/Units 11:27 15:20 22:08 WBC (3.8-10.6) k/uL RBC (4.30-5.90) m/uL Hgb (13.0-17.5) gm/dL Hct (39.0-53.0) % RDW (11.5-15.5) % Plt Count (150-450) k/uL Neutrophils # (Manual) (1.3-7.7) k/uL Sodium 118 L* 118 L* 121 L (137-145) mmol/L Chloride 93 L 96 L (98-107) mmol/L Carbon Dioxide 18 L 14 L (22-30) mmol/L BUN 25 H 25 H (9-20) mg/dL Glucose 106 H 151 H (74-99) mg/dL Calcium 7.2 L 7.1 L (8.4-10.2) mg/dL 01/23/24 01/23/24 01/23/24 Range/Units 03:09 03:15 03:15 WBC 22.9 H (3.8-10.6) k/uL RBC 2.98 L (4.30-5.90) m/uL Hgb 9.2 L (13.0-17.5) gm/dL Hct 29.0 L (39.0-53.0) % RDW 16.1 H (11.5-15.5) % Plt Count 125 L D (150-450) k/uL Neutrophils # (Manual) 21.00 H (1.3-7.7) k/uL Sodium 120 L 121 L (137-145) mmol/L Chloride (98-107) mmol/L Carbon Dioxide 15 L (22-30) mmol/L BUN 27 H (9-20) mg/dL Glucose 113 H (74-99) mg/dL Calcium 7.1 L (8.4-10.2) mg/dL Microbiology - Last 24 Hours (Table) 01/21/24 12:00 Gram Stain - Preliminary Ascites Fluid Body Fluid Culture - Preliminary 01/21/24 11:20 Blood Culture Gram Stain - Preliminary Blood Blood Culture - Preliminary Molecular ID Assessment and Plan Assessment: Hypotension, rule out septic in nature as the patient blood cultures positive for staph, rule out underlying MRSA. Exact source of infection is not clear. As the fluid was drained and there is no evidence of SBP. The patient is currently on a combination of Rocephin and vancomycin. Severe hyponatremia, the patient's sodium level is at 121 and the patient is is on hypertonic 3% saline solution Liver cirrhosis with abdominal ascites and weekly paracentesis, last paracentesis was done 01/21/2020 for a total of 3 to 4 L of fluid was aspirated. Coagulopathy, secondary to above Acute leukocytosis, no obvious infectious process Non-anion gap metabolic acidosis, currently on oral bicarb Anemia of chronic disease, no overt signs of bleeding History of pancreatitis History of alcoholism Frequent falls Plan: Patient will be weaned off pressors today Continue Rocephin and vancomycin Continue hypertonic saline at 3% and monitor sodium closely Midodrine to be continued Nephrology on the case Will continue to follow
[2024-01-23] MEDS: SODIUM CHLORIDE 0.9% 1,000 ML IV ONE (13:22)
--- NOTE | 2024-01-23 13:42 | P.PN ---
Subjective patient is seen for follow-up for hyponatremia. He remains on 3% saline. Serum sodium improved to 121 Blood cultures were reported positive for MRSA. Patient received fluid bolus yesterday and will receive another liter of fluid bolus today. Urine output remains at about 10 ML per hour. No significant complaints. Objective - Vital Signs Vital signs: Vital Signs Temp 98.3 F 01/23/24 12:15 Pulse 98 01/23/24 12:45 Resp 19 01/23/24 12:45 BP 86/52 01/23/24 12:45 Pulse Ox 87 L 01/23/24 12:45 FiO2 Intake & Output 01/22/24 01/23/24 01/23/24 18:59 06:59 18:59 Intake Total 3455.265 645.942 1098.731 Output Total 90 85 30 Balance 3365.265 652.695 9546.731 Weight 86.7 kg Intake: IV 1865 300 150 Invasive Line 1 20 Invasive Line 2 90 Sodium Chloride 0.9% 1, 1000 000 ml @ 999 mls/hr IV . Q1H1M [facility] Rx#:[id number] Sodium Chloride 3%( 205 Hypertonic) 500 ml @ 20 mls/hr IV .Q24H [facility] Rx#: [id number] Sodium Chloride 3%( 300 150 Hypertonic) 500 ml @ 25 mls/hr IV .Q20H [facility] Rx#: [id number] Vancomycin 1,500 mg In 500 Sodium Chloride 0.9% 500 ml 500 ml @ 167 mls/hr IVPB Q12HR [facility] Rx#: [id number] cefTRIAXone 1 gm In 50 Sodium Chloride 0.9% 50 ml @ 100 mls/hr IVPB Q24HR [facility] Rx#:[id number] Intake, IV Titration 110.265 678.200 699.731 Amount Norepinephrine 4 mg In 90.265 178.200 149.731 Sodium Chloride 0.9% 250 ml @ 0.03 MCG/KG/MIN 9. 332 mls/hr IV .Q24H [facility] Rx#:[id number] Sodium Chloride 3%( 20 Hypertonic) 500 ml @ 20 mls/hr IV .Q24H [facility] Rx#: [id number] Vancomycin 1,500 mg In 500 500 Sodium Chloride 0.9% 500 ml 500 ml @ 167 mls/hr IVPB Q12HR [facility] Rx#: [id number] cefTRIAXone 1 gm In 50 Sodium Chloride 0.9% 50 ml @ 100 mls/hr IVPB Q24HR [facility] Rx#:[id number] Oral 1480 1100 Output: Urine 90 85 30 Other: Voiding Method Indwelling Catheter Indwelling Catheter Indwelling Catheter # Bowel Movements 0 - Exam patient is awake, comfortable, no acute distress. Examination of the heart S1 and S2 Examination of the lungs bilateral breath sounds are heard Abdomen is soft nontender Examination of lower extremity shows edema 1+ bilaterally - Labs CBC & Chem 7: 01/23/24 03:15 01/23/24 10:30 Labs: Abnormal Lab Results - Last 24 Hours (Table) 01/22/24 01/22/24 01/23/24 Range/Units 15:20 22:08 03:09 WBC (3.8-10.6) k/uL RBC (4.30-5.90) m/uL Hgb (13.0-17.5) gm/dL Hct (39.0-53.0) % RDW (11.5-15.5) % Plt Count (150-450) k/uL Neutrophils # (Manual) (1.3-7.7) k/uL Sodium 118 L* 121 L 120 L (137-145) mmol/L Chloride 96 L (98-107) mmol/L Carbon Dioxide 14 L (22-30) mmol/L BUN 25 H (9-20) mg/dL Glucose 151 H (74-99) mg/dL Calcium 7.1 L (8.4-10.2) mg/dL 01/23/24 01/23/24 01/23/24 Range/Units 03:15 03:15 10:30 WBC 22.9 H (3.8-10.6) k/uL RBC 2.98 L (4.30-5.90) m/uL Hgb 9.2 L (13.0-17.5) gm/dL Hct 29.0 L (39.0-53.0) % RDW 16.1 H (11.5-15.5) % Plt Count 125 L D (150-450) k/uL Neutrophils # (Manual) 21.00 H (1.3-7.7) k/uL Sodium 121 L 125 L (137-145) mmol/L Chloride (98-107) mmol/L Carbon Dioxide 15 L (22-30) mmol/L BUN 27 H (9-20) mg/dL Glucose 113 H (74-99) mg/dL Calcium 7.1 L (8.4-10.2) mg/dL Microbiology - Last 24 Hours (Table) 01/22/24 15:20 Blood Culture Gram Stain - Preliminary Blood 01/21/24 11:20 Blood Culture Gram Stain - Preliminary Blood Blood Culture - Preliminary Methicillin resist S. aureus Molecular ID 01/21/24 12:00 Gram Stain - Preliminary Ascites Fluid Body Fluid Culture - Preliminary Assessment and Plan Assessment: 1. Hyponatremia associated with liver cirrhosis. Currently with edema. Patient was maintained on Lasix which was held as patient is significantly hypotensive. Maintained on 3% saline 2. Acute kidney injury, oliguric, ATN versus hepatorenal syndrome 3. Alcoholic liver cirrhosis 4. Non-gap metabolic acidosis secondary to acute kidney injury 5. Hyperkalemia associated with acute kidney injury 6. Non-gap metabolic acidosis 7. MRSA bacteremia Plan: repeat 1 L fluid bolus Continue with 3% saline, discontinue when serum sodium above 124. continue oral sodium bicarb continue antibiotics
--- NOTE | 2024-01-23 15:37 | CA ---
Transthoracic Echo Report Name: Fred Kim Age: 63 Gender: M : 1960 Exam Date: 01/23/2024 08:01 Exam Location: [place] [facility] Ht (in): 71 Wt (lb): 178 Ordering Physician: Ray Smith MD ([id number]) Attending/Referring Phys: Sarah SANCHEZ Relief Mate Fransisca Cavanaugh RDCS Procedure CPT: Indications: lv fxn, new onset afib Cardiac Hx: Technical Quality: Fair Contrast 1: Total Dose (mL): Contrast 2: Total Dose (mL): MEASUREMENTS (Male / Female) Normal Values 2D ECHO LV Diastolic Diameter PLAX 3.5 cm 4.2 - 5.9 / 3.9 - 5.3 cm LV Systolic Diameter PLAX 2.8 cm IVS Diastolic Thickness 1.8 cm 0.6 - 1.0 / 0.6 - 0.9 cm LVPW Diastolic Thickness 1.5 cm 0.6 - 1.0 / 0.6 - 0.9 cm LV Relative Wall Thickness 0.9 RV Internal Dim ED PLAX 2.8 cm LA Volume 53.1 cm??? 18 - 58 / 22 - 52 cm??? LA Volume Index 26.3 cm???/m??? 16 - 28 cm???/m??? DOPPLER AV Peak Velocity 156.4 cm/s AV Peak Gradient 9.8 mmHg AV Mean Velocity 104.6 cm/s AV Mean Gradient 5.0 mmHg AV Velocity Time Integral 24.5 cm AI Peak Velocity 360.2 cm/s AI Peak Gradient 51.9 mmHg AI Pressure Half Time 444.3 ms MV Area PHT 5.4 cm??? Mitral E Point Velocity 86.5 cm/s Mitral A Point Velocity 0.1 cm/s Mitral E to A Ratio 599.9 MV Deceleration Time 140.6 ms MV E' Velocity 7.1 cm/s Mitral E to MV E' Ratio 12.1 FINDINGS Left Ventricle Severely increased left ventricular wall thickness. Left ventricular cavity size normal. Normal left ventricular systolic function with no obvious regional wall motion abnormalities. Left ventricular ejection fraction is estimated at 50- 55 %. Grade 1 diastolic dysfunction. Right Ventricle Unable to estimate the right ventricular systolic pressure. Right ventricular systolic pressure within normal limits. Right Atrium Normal right atrial size. Left Atrium Mildly increased left atrial area. Mitral Valve Structurally normal mitral valve. Mild mitral annular calcification. Moderate mitral regurgitation. Aortic Valve No aortic stenosis. Moderate aortic regurgitation. Tricuspid Valve Structurally normal tricuspid valve. Mild tricuspid regurgitation. Pulmonic Valve Structurally normal pulmonic valve. Pericardium Large pericardial effusion. Aorta Normal size aortic root and proximal ascending aorta. CONCLUSIONS Left ventricular ejection fraction 50-55% Severely increased left ventricular wall thickness Moderate mitral regurgitation Moderate aortic regurgitation Mild tricuspid regurgitation Large pericardial effusion measuring 2.7-2.9 cm without significant respiratory variation or diastolic collapse. No evidence of tamponade physiology. Previewed by: Dr. Curtis Clement DO (Electronically Signed) Final Date: 23 January 2024 15:36
--- NOTE | 2024-01-23 15:38 | P.PN ---
Subjective Progress Note Date: 01/22/24 HISTORY OF PRESENT ILLNESS: This is a 63 year old male with a previous medical history significant for hypertension and hypertensive cardiovascular disease, hyperlipidemia, history of pancreatitis in the past along with prior history of sepsis due to cellulitis about 2 year ago, history of chronic alcoholic hepatitis with alcoholic liver cirrhosis for which he has been following with Dr. Smith as an outpatient and has been getting a weekly paracentesis at [facility] every Friday, patient was recently hospitalized at [facility] from two 01/05 2024 for significant hyponatremia with a sodium level as low as 118, patient was treated with fluid restriction as well as salt tablets, and he was treated with IV diuretics in the form of Lasix and spironolactone, his sodium got as good as 123, I believe the patient does have reset osmostat at this point in time, and he has a new baseline at around 04/29/2024, patient was brought into the emergency department at [facility] this time because of recurrent falls over the last few weeks with increased falls 3 times, he fell against his right shoulder, he has limited range of motion of the right shoulder, patient has minimal bruises in the right knee, he has significant bruising in the left hip, he does appear to have edema in the abdomen as well as the upper thigh, he does not appear to have a significant edema both lower extremities, initially was started on Lasix 40 mg IV push every 12 hours, and the patient was having good urine output, his sodium went up to 115, then the patient sodium went down to 114 after he was given 60 cc of 3% hypertonic solution, therefore he was taken off that after nephrology seen the patient, and he was started on normal saline 1 L over the next hour, recheck his sodium level at 330, he was also started on Sandostatin 100 mcg IV push every 8 hours for hepatorenal syndrome, patient was admitted to the hospital he was also found to have a significant leukocytosis he was started on ceftriaxone, he had paracentesis in the ICU and his fluid were sent for cell count and differential rule out spontaneous bacterial peritonitis patient does not appear to have any fever or chills at this time he does not have any fever at this point in time either. 01/21: Patient is laying down in bed he appears to be very weak, he is in atrial fibrillation with heart rate is around 116, patient has no chest pain, he appears to be somewhat short of breath, he has been on fluid restriction, he is asking to reduce his fluid restriction to 1500 cc in a 24 hours, will continue to follow-up with the patient very closely, will obtain cardiology consultation, patient continues to have significant pain in his shoulders, he was started on morphine 2 mg IV push every 4 hours as needed for pain control, we will continue to follow-up the patient in the intensive care unit, monitor input and output and daily weight, blood cultures are positive for methicillin-resistant Staphylococcus aureus, patient was started on IV antibiotic in the form of vancomycin pharmacy to dose his peak and trough, continue ceftriaxone 1 g every back every 24 hours, patient continues to have leukocytosis, we will monitor the patient very closely. Infectious disease consultation will be obtained. REVIEW OF SYSTEMS: Constitutional: No documented fever, no chills, no night sweats. No weight change. positive for weakness, positive for fatigue or lethargy. No daytime sleepiness. HEENT: No headache. No blurred vision or double vision, no loss of vision. No loss of Hearing, no ringing in the ears, no dizziness. No nasal drainage or congestion. No epistaxis. No sore throat. Lungs: No shortness of breath, no cough, no sputum production. No wheezing. Reports dyspnea with activity. Cardiovascular: No chest pain, positive for lower extremity edema. No palpitations. No paroxysmal nocturnal dyspnea. No orthopnea. No lightheadedness or dizziness. No syncopal episodes. Abdominal: Reports no abdominal pain. No nausea, vomiting. no diarrhea. No constipation. No bloody or tarry stools reports loss of appetite. Genitourinary: No dysuria, increased frequency, urgency. No urinary retention. Musculoskeletal: No myalgias. positive for muscle weakness, no gait dysfunction, no frequent falls. No back pain. No neck pain. Integumentary: No wounds, no lesions. No rash or pruritus. Positive for unusual bruising. No change in hair or nails. Positive for ecchymosis of the right knee. Neurologic: No aphasia. No facial droop. No change in mentation. No head injury. No headache. No paralysis. No paresthesia. Psychiatric: No depression. No anxiety. No mood swings. Endocrine: No abnormal blood sugars. No weight change. PHYSICAL EXAMINATION: General: 63-year-old male laying down in bed in no apparent distress HEENT: Head is atraumatic, normocephalic, pupils were equal round reactive to light and recommendation, extraocular muscle movement were intact, sclera are deeply icteric, conjunctivae were pale, mucous membranes of the mouth are somewhat dry. Neck: Supple, no JVP, normal carotid upstroke bilaterally, no lymphadenopathy. Chest: Decreased breath sounds at the bases, few rhonchi, no expiratory wheezes, no chest wall tenderness, no intercostal retractions. Heart: First heart sound is normal, second heart sounds normal there is BLANCA 2/6 located at the left sternal border, irregular due to atrial fibrillation. Abdomen: Soft, distended mild ascites, no tenderness, positive bowel sounds. Extremities: There is +1 edema no calf tenderness DP +2 bilaterally. Neurologic examination: Patient is awake alert and oriented X 3, cranial nerves II-12 appear grossly intact, muscle power were 5 out of 5 in upper extremities and 5 out of 5 in bilateral lower extremities, deep tendon reflexes normal bilaterally. ASSESSMENT AND PLAN: 1. 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 Patient was placed on IV Lasix initially however he became quite hypotensive, he was placed on midodrine 10 mg orally 3 times every day, he was given a fluid challenge, then he was started on sodium chloride tablets which did not help much, patient was placed on a fluid restriction 1500 cc in 24 hours, he was started on tolvaptan 7.5 mg orally x 1, his sodium is up to 118, we will continue to monitor the patient very closely. 2. MRSA bacteremia. Continue patient on IV antibiotic in the form of vancomycin with pharmacy to dose his peak and trough, continue ceftriaxone 1 g piggyback every 24 hours, infectious disease consultation Dr. Randle. 3. Atrial fibrillation patient is not a candidate for anticoagulation at this point in time, will consult cardiology for further recommendation. 4. Acute kidney injury due to acute tubular necrosis and vasomotor nephropathy . Monitor the patient CMP 5. Hyperkalemia due to acute kidney injury due to ATN and the use of spironolactone. Resolved. 6. None anion gap metabolic acidosis. Patient was started on sodium bicarbonate drip at 75 cc an hour, monitor the patient CMP over the next 24 hours. 7. Chronic liver cirrhosis with recurrence ascites. Status post weekly paracentesis. He just had 1 yesterday. Fluid did not show evidence of any WBC no evidence of spontaneous bacterial peritonitis. 8. Hepatorenal syndrome. Continue patient on Sandostatin 100 mcg IV push every 8 hours. 9. GERD. Continue patient on Protonix 40 mg orally once every day. 10. DVT prophylaxis. Bilateral knee-high TAMI hose. 11. Orthostatic hypotension continue patient on midodrine 10 mg orally 3 times every day. 12. Right shoulder pain likely related to rotator cuff tear continue current pain management for now. 13. Medical debility due to underlying liver cirrhosis physical therapy eval uation. Objective - Vital Signs Vital signs: Vital Signs Temp 98.3 F 01/23/24 12:15 Pulse 98 01/23/24 12:45 Resp 19 01/23/24 12:45 BP 86/52 01/23/24 12:45 Pulse Ox 87 L 01/23/24 12:45 FiO2 Intake & Output 01/22/24 01/23/24 01/23/24 18:59 06:59 18:59 Intake Total 3455.265 884.207 9399.167 Output Total 90 85 30 Balance 3365.265 758.227 4443.167 Weight 86.7 kg Intake: IV 1865 300 150 Invasive Line 1 20 Invasive Line 2 90 Sodium Chloride 0.9% 1, 1000 000 ml @ 999 mls/hr IV . Q1H1M [facility] Rx#:[id number] Sodium Chloride 3%( 205 Hypertonic) 500 ml @ 20 mls/hr IV .Q24H [facility] Rx#: [id number] Sodium Chloride 3%( 300 150 Hypertonic) 500 ml @ 25 mls/hr IV .Q20H [facility] Rx#: [id number] Vancomycin 1,500 mg In 500 Sodium Chloride 0.9% 500 ml 500 ml @ 167 mls/hr IVPB Q12HR [facility] Rx#: [id number] cefTRIAXone 1 gm In 50 Sodium Chloride 0.9% 50 ml @ 100 mls/hr IVPB Q24HR [facility] Rx#:[id number] Intake, IV Titration 110.265 678.200 709.167 Amount Norepinephrine 4 mg In 90.265 178.200 159.167 Sodium Chloride 0.9% 250 ml @ 0.03 MCG/KG/MIN 9. 332 mls/hr IV .Q24H [facility] Rx#:[id number] Sodium Chloride 3%( 20 Hypertonic) 500 ml @ 20 mls/hr IV .Q24H [facility] Rx#: [id number] Vancomycin 1,500 mg In 500 500 Sodium Chloride 0.9% 500 ml 500 ml @ 167 mls/hr IVPB Q12HR [facility] Rx#: [id number] cefTRIAXone 1 gm In 50 Sodium Chloride 0.9% 50 ml @ 100 mls/hr IVPB Q24HR [facility] Rx#:[id number] Oral 1480 1100 Output: Urine 90 85 30 Other: Voiding Method Indwelling Catheter Indwelling Catheter Indwelling Catheter # Bowel Movements 0 - Labs CBC & Chem 7: 01/23/24 03:15 01/23/24 10:30 Labs: Abnormal Lab Results - Last 24 Hours (Table) 01/22/24 01/22/24 01/23/24 Range/Units 15:20 22:08 03:09 WBC (3.8-10.6) k/uL RBC (4.30-5.90) m/uL Hgb (13.0-17.5) gm/dL Hct (39.0-53.0) % RDW (11.5-15.5) % Plt Count (150-450) k/uL Neutrophils # (Manual) (1.3-7.7) k/uL Sodium 118 L* 121 L 120 L (137-145) mmol/L Chloride 96 L (98-107) mmol/L Carbon Dioxide 14 L (22-30) mmol/L BUN 25 H (9-20) mg/dL Glucose 151 H (74-99) mg/dL Calcium 7.1 L (8.4-10.2) mg/dL 01/23/24 01/23/24 01/23/24 Range/Units 03:15 03:15 10:30 WBC 22.9 H (3.8-10.6) k/uL RBC 2.98 L (4.30-5.90) m/uL Hgb 9.2 L (13.0-17.5) gm/dL Hct 29.0 L (39.0-53.0) % RDW 16.1 H (11.5-15.5) % Plt Count 125 L D (150-450) k/uL Neutrophils # (Manual) 21.00 H (1.3-7.7) k/uL Sodium 121 L 125 L (137-145) mmol/L Chloride (98-107) mmol/L Carbon Dioxide 15 L (22-30) mmol/L BUN 27 H (9-20) mg/dL Glucose 113 H (74-99) mg/dL Calcium 7.1 L (8.4-10.2) mg/dL Microbiology - Last 24 Hours (Table) 01/22/24 15:20 Blood Culture Gram Stain - Preliminary Blood 01/22/24 15:20 Blood Culture Gram Stain - Preliminary Blood 01/21/24 11:20 Blood Culture Gram Stain - Preliminary Blood Blood Culture - Preliminary Methicillin resist S. aureus Molecular ID 01/21/24 12:00 Gram Stain - Preliminary Ascites Fluid Body Fluid Culture - Preliminary
[2024-01-23] MEDS: MORPHINE SULFATE 2 MG/ML SYRINGE IVP PRN (16:57)
[2024-01-24 06:47] LABS: Anisocytosis Slight; Basophils % (A) 0 %; Eosinophils % (A) 0 %; HCT 28.3 % (39.0-53.0); Hypochromasia Moderate; Lymphocytes # (A) 0.3 k/uL (1.0-4.8); Lymphocytes % (A) 2 %; MCH 31.4 pg (25.0-35.0); MCV 98.1 fL (80.0-100.0); Macrocytosis Slight; Mean Platelet Volume 7.4; Monocytes # (A) 1.3 k/uL (0-1.0); Monocytes % (A) 10 %; Neutrophils # (A) 11.6 k/uL (1.3-7.7); Neutrophils % (A) 86 %; Platelet Count 101 k/uL (150-450); RBC 2.88 m/uL (4.30-5.90); RDW 16.1 % (11.5-15.5); WBC 13.6 k/uL (3.8-10.6)
[2024-01-24 06:53] LABS: ALT 79 U/L (4-49); AST 132 U/L (17-59); African American GFR (CKD) 62 (>60 ml/min/1.73 sqM); Albumin 2.1 g/dL (3.5-5.0); Alkaline Phosphatase 122 U/L (38-126); Anion Gap 5 mmol/L; Blood Urea Nitrogen 32 mg/dL (9-20); Calcium 7.2 mg/dL (8.4-10.2); Carbon Dioxide 14 mmol/L (22-30); Chloride 103 mmol/L (98-107); Glucose 109 mg/dL (74-99); Non-African American GFR(CKD) 53 (>60 ml/min/1.73 sqM); Potassium 4.2 mmol/L (3.5-5.1); Sodium 122 mmol/L (137-145); Total Bilirubin 2.8 mg/dL (0.2-1.3); Total Protein 4.7 g/dL (6.3-8.2)
[2024-01-24] MEDS: SODIUM CHLORIDE TAB 1 GM TAB PO SCH (08:08)
[2024-01-24] MEDS: VANCOMYCIN TROUGH DUE 1 EACH MISC MISCELLANE ONE (08:12)
[2024-01-24] MEDS ORDERED: SODIUM BICARBONATE TAB 650 MG TAB PO SCH (09:00)
[2024-01-24] MEDS: SODIUM CHLORIDE 0.45% 1,000 ML with SODIUM BICARB (1 MEQ/ML) 100 ML IV SCH (11:51)
--- NOTE | 2024-01-24 11:58 | P.PN ---
Subjective patient is seen for follow-up for hyponatremia. 3% saline was discontinued yesterday when sodium was up to 125. Serum sodium has dropped to 123 and 122 now. Systolic blood pressure staying at 80-95 mmHg. Status post fluid bolus. Urine output remains at 5-10 mL an hour. Blood cultures were reported positive for MRSA. Objective - Vital Signs Vital signs: Vital Signs Temp 98.0 F 01/24/24 08:00 Pulse 97 01/24/24 11:15 Resp 24 01/24/24 11:15 BP 89/51 01/24/24 11:15 Pulse Ox 99 01/24/24 11:15 FiO2 Intake & Output 01/23/24 01/24/24 01/24/24 18:59 06:59 18:59 Intake Total 3143.663 2913.572 5772.691 Output Total 60 100 40 Balance 3083.663 2259.928 2694.691 Weight 89.7 kg Intake: IV 270 240 100 Sodium Chloride 3%( 150 Hypertonic) 500 ml @ 25 mls/hr IV .Q20H [facility] Rx#: [id number] kvo 120 240 100 Intake, IV Titration 1773.663 653.516 676.691 Amount Norepinephrine 4 mg In 223.663 153.516 176.691 Sodium Chloride 0.9% 250 ml @ 0.03 MCG/KG/MIN 9. 332 mls/hr IV .Q24H [facility] Rx#:[id number] Sodium Chloride 0.9% 1, 1000 000 ml @ 999 mls/hr IV . Q1H1M [facility] Rx#:[id number] Vancomycin 1,500 mg In 500 Sodium Chloride 0.9% 500 ml 500 ml @ 167 mls/hr IVPB HS [facility] Rx#:[id number] Vancomycin 1,500 mg In 500 500 Sodium Chloride 0.9% 500 ml 500 ml @ 167 mls/hr IVPB Q12HR [facility] Rx#: [id number] cefTRIAXone 1 gm In 50 Sodium Chloride 0.9% 50 ml @ 100 mls/hr IVPB Q24HR [facility] Rx#:[id number] Oral 1100 630 350 Output: Urine 60 100 40 Other: Voiding Method Indwelling Catheter Indwelling Catheter Indwelling Catheter - Exam patient is awake, comfortable, no acute distress. Examination of the heart S1 and S2 Examination of the lungs bilateral breath sounds are heard Abdomen is soft nontender, ascites is noted Examination of lower extremity shows edema 2+ bilaterally - Labs CBC & Chem 7: 01/24/24 06:30 01/24/24 06:30 Labs: Abnormal Lab Results - Last 24 Hours (Table) 01/23/24 01/24/24 01/24/24 Range/Units 22:49 06:30 06:30 WBC 13.6 H (3.8-10.6) k/uL RBC 2.88 L (4.30-5.90) m/uL Hgb 9.0 L (13.0-17.5) gm/dL Hct 28.3 L (39.0-53.0) % RDW 16.1 H (11.5-15.5) % Plt Count 101 L (150-450) k/uL Neutrophils # 11.6 H (1.3-7.7) k/uL Lymphocytes # 0.3 L (1.0-4.8) k/uL Monocytes # 1.3 H (0-1.0) k/uL Sodium 123 L 122 L (137-145) mmol/L Carbon Dioxide 14 L (22-30) mmol/L BUN 32 H (9-20) mg/dL Creatinine 1.38 H (0.66-1.25) mg/dL Glucose 109 H (74-99) mg/dL Calcium 7.2 L (8.4-10.2) mg/dL Total Bilirubin 2.8 H (0.2-1.3) mg/dL AST 132 H (17-59) U/L ALT 79 H (4-49) U/L Total Protein 4.7 L (6.3-8.2) g/dL Albumin 2.1 L (3.5-5.0) g/dL Vancomycin Trough ug/mL 01/24/24 Range/Units 07:53 WBC (3.8-10.6) k/uL RBC (4.30-5.90) m/uL Hgb (13.0-17.5) gm/dL Hct (39.0-53.0) % RDW (11.5-15.5) % Plt Count (150-450) k/uL Neutrophils # (1.3-7.7) k/uL Lymphocytes # (1.0-4.8) k/uL Monocytes # (0-1.0) k/uL Sodium (137-145) mmol/L Carbon Dioxide (22-30) mmol/L BUN (9-20) mg/dL Creatinine (0.66-1.25) mg/dL Glucose (74-99) mg/dL Calcium (8.4-10.2) mg/dL Total Bilirubin (0.2-1.3) mg/dL AST (17-59) U/L ALT (4-49) U/L Total Protein (6.3-8.2) g/dL Albumin (3.5-5.0) g/dL Vancomycin Trough 34.5 H* ug/mL Microbiology - Last 24 Hours (Table) 01/21/24 12:00 Gram Stain - Preliminary Ascites Fluid Body Fluid Culture - Preliminary 01/22/24 02:30 Urine Culture - Final Urine,Catheterized 01/21/24 11:20 Blood Culture Gram Stain - Final Blood Blood Culture - Final Methicillin resist S. aureus Molecular ID 01/22/24 15:20 Blood Culture Gram Stain - Preliminary Blood 01/22/24 15:20 Blood Culture Gram Stain - Preliminary Blood Assessment and Plan Assessment: 1. Hyponatremia associated with liver cirrhosis. Currently with significant edema. Status post 3% saline and received 1 dose of [place] yesterday. 2. Acute kidney injury, oliguric, ATN versus hepatorenal syndrome 3. Alcoholic liver cirrhosis 4. Non-gap metabolic acidosis secondary to acute kidney injury 5. Hyperkalemia associated with acute kidney injury, improved 6. Non-gap metabolic acidosis associated with acute kidney injury 7. MRSA bacteremia Plan: start bicarb drip continue oral sodium bicarb Continue off of 3% saline Repeat sodium this afternoon. [place] continue with fluid restriction. Continue with midodrine and Sandostatin IV albumin 1 continue antibiotics
[2024-01-24] MEDS: FUROSEMIDE 10 MG/ML 4 ML VIAL IV STA (12:19)
[2024-01-24] MEDS: ALBUMIN HUMAN 25% 50 ML in EMPTY BAG 1 BAG IVPB ONE (12:44)
--- NOTE | 2024-01-24 13:56 | P.PN ---
Subjective Progress Note Date: 01/24/24 Patient is a 63-year-old male with past medical history significant for liver cirrhosis, abdominal ascites with weekly paracentesis, pancreatitis, alcoholism, among other things. Of note, patient had a recent hospitalization August 2023 where he was weak and confused and found to have severe hyponatremia. He did require 3% sodium infusion and brief ICU admission at that time. Patient sent in from [facility] last night. Reportedly, had multiple falls over the past couple days. Last night, he was found on the ground. Patient reports that he may have been on the ground for 2 to 3 hours. States that his legs just gave out. Denies losing consciousness. Denies losing hitting his head. States he landed on his right shoulder, which is a little sore. No limitation in motion or obvious trauma. skin tears noted bilateral upper extremitites. He does appear to be in a positive fluid balance. Does take Lasix, Aldactone, and salt tablets on outpatient basis. Also, undergoes weekly paracentesis by IR, and his next paracentesis is scheduled for tomorrow. His abdomen is full and distended. Nontender. He has severe bilateral lower extremity edema. On arrival to the emergency department he was noted to be hypotensive, has missed all 3 of his doses of midodrine yesterday. CBC: WBC count 15.9, hemoglobin 9.5, hematocrit 29.7, platelets 155. Coagulation profile includes a PT of 15.7, INR of 1.5, APTT 33.6. CMP on arrival: Sodium 113, potassium 5.1, chloride 92, serum bicarb 13, BUN 18, creatinine 0.99, glucose 114. LFTs unremarkable. Urinalysis showing moderate leukocytes and occasional bacteria. Patient denies any troubles or difficulty urinating, no dysuria, no fevers, flank pain, hematuria. No polyuria or excessive water intake. No notable fluid losses. Generalized weakness and falls are chief symptoms. No confusion, seizures, coma. Hypothyroidism and adrenal insufficiency previously ruled out. Nephrology has been consulted, is requesting this patient be monitored in the intensive care unit in case he needs 3% hypertonic saline. Most recent sodium is 112, however, the Lasix is still not been given due to hypotension. On 01/22/2024, patient is being seen for a follow-up. Awake and alert. No significant respiratory distress. The patient is currently on room air oxygen with a pulse ox of 98%. Abdominal paracentesis was done yesterday and the fluid was negative for infection. Culture still pending. Earlier this morning, the patient is on hypertonic saline 3% which is running at 20 cc an hour. Sodium level was 116 and subsequently upon 918. He has 1.07. The patient has a serum bicarb of 14. Patient will be given IV bicarb 100 mL equivalents total IV and she will be started on oral bicarb supplements. Urine output is in order of 10 cc an hour. Blood culture was positive for MRSA. Rocephin was discontinued and the patient was started on vancomycin. The patient is also on midodrine. The patient is on octreotide. 01/23/2024, the patient is being seen for a follow-up. The patient is awake and alert and the patient remains on room air oxygen. He did have staff aureus bacteremia the patient is currently on vancomycin. He remains hypotensive and the patient is currently on low-dose norepinephrine which is running at 0.08 mcg/kg/min. The patient remains on hypertonic saline 3% running at 20 cc an hour and the patient's sodium level is at 121. He does have some ascites. Urine output is in order of 20 cc an hour. White cell count of 22.9 with a hemoglobin 9.2. No evidence of any GI bleeding. No evidence of any encephalopathy. BUN is 27 with a creatinine of 1.1 and a potassium of is at 4.5. Remains on IV Rocephin and vancomycin. Remains on midodrine. Remains on pressors. Remains on octreotide. On 01/24/2024, the patient remains, comfortable on room air oxygen. He remains hypotensive as the patient was septic and the blood cultures positive for gram- positive cocci in clusters suggestive of MRSA and the patient remains on vancomycin. The patient currently is on norepinephrine which is running at 0.08 mcg/kg/min. Hypertonic saline was discontinued and the patient is currently on KVO IV fluids. Echocardiogram showed a ejection fraction of 50 to 55%. Large pericardial effusion without tamponade physiology. No clear indication for any vegetation at this point in time based on the routine transthoracic e chocardiogram. The white cell count of 13.6, hemoglobin is at 9 and a platelet count is 101. Sodium is at 122, BUN is 32 with a creatinine of 1.38, AST is 132, ALT 75 and alkaline phosphatase 122. Vancomycin trough is 34.5. Blood sugar is at 127. Repeat blood cultures will be obtained for today. No significant encephalopathy. No respiratory distress. He does have abdominal ascites with a large abdominal wall hernia also noted/umbilical hernia. Objective - Vital Signs Vital signs: Vital Signs Temp 97.7 F 01/24/24 12:00 Pulse 87 01/24/24 13:00 Resp 15 01/24/24 13:00 BP 77/40 01/24/24 13:00 Pulse Ox 96 01/24/24 13:00 FiO2 Intake & Output 01/23/24 01/24/24 01/24/24 18:59 06:59 18:59 Intake Total 3143.663 1484.974 8305.691 Output Total 60 100 50 Balance 3083.663 8725.857 8596.691 Weight 89.7 kg Intake: IV 270 240 120 Sodium Chloride 3%( 150 Hypertonic) 500 ml @ 25 mls/hr IV .Q20H [facility] Rx#: [id number] kvo 120 240 120 Intake, IV Titration 1773.663 653.516 876.691 Amount Albumin Human 25% 50 ml 50 In Empty Bag 1 bag @ 50 mls/hr IVPB ONCE ONE Rx#: [id number] Norepinephrine 4 mg In 223.663 153.516 176.691 Sodium Chloride 0.9% 250 ml @ 0.03 MCG/KG/MIN 9. 332 mls/hr IV .Q24H [facility] Rx#:[id number] Sodium Chloride 0.45% 1, 150 000 ml @ 75 mls/hr IV . [id number] [facility] with Sodium Bicarb (1 Meq/ml) 100 ml Rx#:[id number] Sodium Chloride 0.9% 1, 1000 000 ml @ 999 mls/hr IV . Q1H1M [facility] Rx#:[id number] Vancomycin 1,500 mg In 500 Sodium Chloride 0.9% 500 ml 500 ml @ 167 mls/hr IVPB HS [facility] Rx#:[id number] Vancomycin 1,500 mg In 500 500 Sodium Chloride 0.9% 500 ml 500 ml @ 167 mls/hr IVPB Q12HR [facility] Rx#: [id number] cefTRIAXone 1 gm In 50 Sodium Chloride 0.9% 50 ml @ 100 mls/hr IVPB Q24HR [facility] Rx#:[id number] Oral 0146 508 9599 Output: Urine 60 100 50 Other: Voiding Method Indwelling Catheter Indwelling Catheter Indwelling Catheter - Exam GENERAL EXAM: Alert, 63-year-old white male, being evaluated in the emergency department. Abdomen is full with ascites. Comfortable in no apparent distress. HEAD: Normocephalic and atraumatic EYES: Normal reaction of pupils, equal size. NOSE: Clear with pink turbinates. THROAT: No erythema or exudates. NECK: No masses, no JVD. CHEST: No chest wall deformity. LUNGS: Equal air entry with no crackles, wheeze, rhonchi or dullness. On room air. No conversational dyspnea or accessory muscle use.. CVS: S1 and S2 normal with no audible murmur, regular rhythm. No extra heart sounds ABDOMEN: Abdomen is rounded distended, active bowel sounds, no hepatosplenomegaly, no guarding or rigidity. Large umbilical hernia SPINE: No scoliosis or deformity SKIN: No rashes. Bilateral upper extremity skin tears. CENTRAL NERVOUS SYSTEM: No focal deficits, tone is normal in all 4 extremities. EXTREMITIES: There is bilateral 3+ lower extremity edema. No clubbing, or cyanosis. Peripheral pulses are intact. - Labs CBC & Chem 7: 01/24/24 06:30 01/24/24 12:42 Labs: Abnormal Lab Results - Last 24 Hours (Table) 01/23/24 01/24/24 01/24/24 Range/Units 22:49 06:30 06:30 WBC 13.6 H (3.8-10.6) k/uL RBC 2.88 L (4.30-5.90) m/uL Hgb 9.0 L (13.0-17.5) gm/dL Hct 28.3 L (39.0-53.0) % RDW 16.1 H (11.5-15.5) % Plt Count 101 L (150-450) k/uL Neutrophils # 11.6 H (1.3-7.7) k/uL Lymphocytes # 0.3 L (1.0-4.8) k/uL Monocytes # 1.3 H (0-1.0) k/uL Sodium 123 L 122 L (137-145) mmol/L Carbon Dioxide 14 L (22-30) mmol/L BUN 32 H (9-20) mg/dL Creatinine 1.38 H (0.66-1.25) mg/dL Glucose 109 H (74-99) mg/dL Calcium 7.2 L (8.4-10.2) mg/dL Total Bilirubin 2.8 H (0.2-1.3) mg/dL AST 132 H (17-59) U/L ALT 79 H (4-49) U/L Total Protein 4.7 L (6.3-8.2) g/dL Albumin 2.1 L (3.5-5.0) g/dL Vancomycin Trough ug/mL 01/24/24 01/24/24 Range/Units 07:53 12:42 WBC (3.8-10.6) k/uL RBC (4.30-5.90) m/uL Hgb (13.0-17.5) gm/dL Hct (39.0-53.0) % RDW (11.5-15.5) % Plt Count (150-450) k/uL Neutrophils # (1.3-7.7) k/uL Lymphocytes # (1.0-4.8) k/uL Monocytes # (0-1.0) k/uL Sodium 127 L (137-145) mmol/L Carbon Dioxide (22-30) mmol/L BUN (9-20) mg/dL Creatinine (0.66-1.25) mg/dL Glucose (74-99) mg/dL Calcium (8.4-10.2) mg/dL Total Bilirubin (0.2-1.3) mg/dL AST (17-59) U/L ALT (4-49) U/L Total Protein (6.3-8.2) g/dL Albumin (3.5-5.0) g/dL Vancomycin Trough 34.5 H* ug/mL Microbiology - Last 24 Hours (Table) 01/22/24 15:20 Blood Culture Gram Stain - Preliminary Blood Blood Culture - Preliminary Methicillin resist S. aureus 01/22/24 15:20 Blood Culture Gram Stain - Preliminary Blood Blood Culture - Preliminary Methicillin resist S. aureus 01/21/24 12:00 Gram Stain - Preliminary Ascites Fluid Body Fluid Culture - Preliminary 01/22/24 02:30 Urine Culture - Final Urine,Catheterized 01/21/24 11:20 Blood Culture Gram Stain - Final Blood Blood Culture - Final Methicillin resist S. aureus Molecular ID Assessment and Plan Assessment: Septic shock secondary to Staph aureus/MRSA Hypotension, rule out septic in nature as the patient blood cultures positive for staph, rule out underlying MRSA. Exact source of infection is not clear. As the fluid was drained and there is no evidence of SBP. The patient is currently on a combination of Rocephin and vancomycin. Transthoracic echocardiogram shows no evidence of any valvular vegetations Severe hyponatremia, the patient's sodium level is stable and the patient is off hypertonic saline Liver cirrhosis with abdominal ascites and weekly paracentesis, last paracentesis was done 01/21/2020 for a total of 3 to 4 L of fluid was aspirated. Coagulopathy, secondary to above Acute leukocytosis, no obvious infectious process, improving Non-anion gap metabolic acidosis, currently on oral bicarb Anemia of chronic disease, no overt signs of bleeding History of pancreatitis History of alcoholism Frequent falls Pericardial effusion without any tamponade physiology. Ejection fraction is preserved with an EF of around 50 to 55%. Plan: Remains on room air oxygen No significant encephalopathy Patient will be weaned off pressors today May require NICOLE and this will be discussed Continue Rocephin and vancomycin Repeat blood cultures Stop the hypertonic saline and monitor the sodium levels Midodrine to be continued Nephrology on the case Will continue to follow
--- NOTE | 2024-01-24 14:41 | P.PN ---
Subjective Progress Note Date: 01/23/24 HISTORY OF PRESENT ILLNESS: This is a 63 year old male with a previous medical history significant for hypertension and hypertensive cardiovascular disease, hyperlipidemia, history of pancreatitis in the past along with prior history of sepsis due to cellulitis about 2 year ago, history of chronic alcoholic hepatitis with alcoholic liver cirrhosis for which he has been following with Dr. Smith as an outpatient and has been getting a weekly paracentesis at [facility] every Friday, patient was recently hospitalized at [facility] from two 01/05 2024 for significant hyponatremia with a sodium level as low as 118, patient was treated with fluid restriction as well as salt tablets, and he was treated with IV diuretics in the form of Lasix and spironolactone, his sodium got as good as 123, I believe the patient does have reset osmostat at this point in time, and he has a new baseline at around 04/29/2024, patient was brought into the emergency department at [facility] this time because of recurrent falls over the last few weeks with increased falls 3 times, he fell against his right shoulder, he has limited range of motion of the right shoulder, patient has minimal bruises in the right knee, he has significant bruising in the left hip, he does appear to have edema in the abdomen as well as the upper thigh, he does not appear to have a significant edema both lower extremities, initially was started on Lasix 40 mg IV push every 12 hours, and the patient was having good urine output, his sodium went up to 115, then the patient sodium went down to 114 after he was given 60 cc of 3% hypertonic solution, therefore he was taken off that after nephrology seen the patient, and he was started on normal saline 1 L over the next hour, recheck his sodium level at 330, he was also started on Sandostatin 100 mcg IV push every 8 hours for hepatorenal syndrome, patient was admitted to the hospital he was also found to have a significant leukocytosis he was started on ceftriaxone, he had paracentesis in the ICU and his fluid were sent for cell count and differential rule out spontaneous bacterial peritonitis patient does not appear to have any fever or chills at this time he does not have any fever at this point in time either. 01/21: Patient is laying down in bed he appears to be very weak, he is in atrial fibrillation with heart rate is around 116, patient has no chest pain, he appears to be somewhat short of breath, he has been on fluid restriction, he is asking to reduce his fluid restriction to 1500 cc in a 24 hours, will continue to follow-up with the patient very closely, will obtain cardiology consultation, patient continues to have significant pain in his shoulders, he was started on morphine 2 mg IV push every 4 hours as needed for pain control, we will continue to follow-up the patient in the intensive care unit, monitor input and output and daily weight, blood cultures are positive for methicillin-resistant Staphylococcus aureus, patient was started on IV antibiotic in the form of vancomycin pharmacy to dose his peak and trough, continue ceftriaxone 1 g every back every 24 hours, patient continues to have leukocytosis, we will monitor the patient very closely. Infectious disease consultation will be obtained. 01/22: Patient sitting up in bed in no apparent distress, he is more awake and more alert today, his sodium is at 125, we will discontinue hypertonic saline 3%, continue patient on sodium bicarbonate tablet 650 mg orally twice every day, monitor the patient CMP over the next 24 hours, continue fluid restriction 1500 cc, continue IV antibiotic in the form of vancomycin and Rocephin, consult infectious disease Dr. Randle, patient has been followed by pulmonary medicine as well as nephrology, will continue to follow-up with the patient very closely patient was seen in consultation by cardiology, he was started on metoprolol 12.5 mg orally 3 times every day, will continue rate control, patient is not a candidate for anticoagulation due to his increased risk of bleeding. Echocardiogram showed ejection fraction of 55%, with moderate mitral regurgitation and aortic regurgitation with a large pericardial effusion without evidence of tamponade cardiology is following. REVIEW OF SYSTEMS: Constitutional: No documented fever, no chills, no night sweats. No weight change. positive for weakness, positive for fatigue or lethargy. No daytime sleepiness. HEENT: No headache. No blurred vision or double vision, no loss of vision. No loss of Hearing, no ringing in the ears, no dizziness. No nasal drainage or congestion. No epistaxis. No sore throat. Lungs: No shortness of breath, no cough, no sputum production. No wheezing. Reports dyspnea with activity. Cardiovascular: No chest pain, positive for lower extremity edema. No palpitations. No paroxysmal nocturnal dyspnea. No orthopnea. No lightheadedness or dizziness. No syncopal episodes. Abdominal: Reports no abdominal pain. No nausea, vomiting. no diarrhea. No constipation. No bloody or tarry stools reports loss of appetite. Genitourinary: No dysuria, increased frequency, urgency. No urinary retention. Musculoskeletal: No myalgias. positive for muscle weakness, no gait dysfunction, no frequent falls. No back pain. No neck pain. Integumentary: No wounds, no lesions. No rash or pruritus. Positive for unusual bruising. No change in hair or nails. Positive for ecchymosis of the right knee. Neurologic: No aphasia. No facial droop. No change in mentation. No head injury. No headache. No paralysis. No paresthesia. Psychiatric: No depression. No anxiety. No mood swings. Endocrine: No abnormal blood sugars. No weight change. PHYSICAL EXAMINATION: General: 63-year-old male laying down in bed in no apparent distress HEENT: Head is atraumatic, normocephalic, pupils were equal round reactive to light and recommendation, extraocular muscle movement were intact, sclera are deeply icteric, conjunctivae were pale, mucous membranes of the mouth are somewhat dry. Neck: Supple, no JVP, normal carotid upstroke bilaterally, no lymphadenopathy. Chest: Decreased breath sounds at the bases, few rhonchi, no expiratory wheezes, no chest wall tenderness, no intercostal retractions. Heart: First heart sound is normal, second heart sounds normal there is BLANCA 2/6 located at the left sternal border, irregular due to atrial fibrillation. Abdomen: Soft, distended mild ascites, no tenderness, positive bowel sounds. Extremities: There is +1 edema no calf tenderness DP +2 bilaterally. Neurologic examination: Patient is awake alert and oriented X 3, cranial nerves II-12 appear grossly intact, muscle power were 5 out of 5 in upper extremities and 5 out of 5 in bilateral lower extremities, deep tendon reflexes normal bilaterally. ASSESSMENT AND PLAN: 1. 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 Patient is currently off hypertonic saline due to his sodium 125, continue sodium bicarbonate tablets 650 mg orally twice every day, patient did receive 1 dose of tolvaptan 7.5 mg orally x 1, monitor the patient CMP over the next 24 hours. Continue fluid restriction. 2. MRSA bacteremia. Continue patient on IV antibiotic in the form of vancomycin with pharmacy to dose his peak and trough, continue ceftriaxone 1 g piggyback every 24 hours, infectious disease consultation Dr. Randle. 3. Atrial fibrillation patient is not a candidate for anticoagulation at this point in time, continue patient on metoprolol 12.5 mg orally 3 times every day, cardiology consultation appreciated. 4. Acute kidney injury due to acute tubular necrosis and vasomotor nephropathy . Monitor the patient CMP 5. Hyperkalemia due to acute kidney injury due to ATN and the use of spironolactone. Resolved. 6. None anion gap metabolic acidosis. Patient was started on sodium bicarbonate 650 mg orally twice every day. 7. Chronic liver cirrhosis with recurrence ascites. Status post weekly paracentesis. He just had 1 yesterday. Fluid did not show evidence of any WBC no evidence of spontaneous bacterial peritonitis. 8. Hepatorenal syndrome. Continue patient on Sandostatin 100 mcg IV push every 8 hours. 9. GERD. Continue patient on Protonix 40 mg orally once every day. 10. DVT prophylaxis. Bilateral knee-high TAMI hose. 11. Orthostatic hypotension continue patient on midodrine 10 mg orally 3 times every day. 12. Right shoulder pain likely related to rotator cuff tear continue current pain management for now. 13. Medical debility due to underlying liver cirrhosis physical therapy evaluation. 14. Large pericardial effusion without evidence of tamponade cardiology is following. We will consult cardiothoracic surgery for possible pericardiocentesis if needed. 15. Overall prognosis very guarded. Objective - Vital Signs Vital signs: Vital Signs Temp 98.3 F 01/23/24 12:15 Pulse 98 01/23/24 12:45 Resp 19 01/23/24 12:45 BP 86/52 01/23/24 12:45 Pulse Ox 87 L 01/23/24 12:45 FiO2 Intake & Output 01/22/24 01/23/24 01/23/24 18:59 06:59 18:59 Intake Total 3455.265 160.392 8320.167 Output Total 90 85 30 Balance 3365.265 757.696 8635.167 Weight 86.7 kg Intake: IV 1865 300 150 Invasive Line 1 20 Invasive Line 2 90 Sodium Chloride 0.9% 1, 1000 000 ml @ 999 mls/hr IV . Q1H1M [facility] Rx#:[id number] Sodium Chloride 3%( 205 Hypertonic) 500 ml @ 20 mls/hr IV .Q24H [facility] Rx#: [id number] Sodium Chloride 3%( 300 150 Hypertonic) 500 ml @ 25 mls/hr IV .Q20H [facility] Rx#: [id number] Vancomycin 1,500 mg In 500 Sodium Chloride 0.9% 500 ml 500 ml @ 167 mls/hr IVPB Q12HR [facility] Rx#: [id number] cefTRIAXone 1 gm In 50 Sodium Chloride 0.9% 50 ml @ 100 mls/hr IVPB Q24HR [facility] Rx#:[id number] Intake, IV Titration 110.265 678.200 709.167 Amount Norepinephrine 4 mg In 90.265 178.200 159.167 Sodium Chloride 0.9% 250 ml @ 0.03 MCG/KG/MIN 9. 332 mls/hr IV .Q24H [facility] Rx#:[id number] Sodium Chloride 3%( 20 Hypertonic) 500 ml @ 20 mls/hr IV .Q24H [facility] Rx#: [id number] Vancomycin 1,500 mg In 500 500 Sodium Chloride 0.9% 500 ml 500 ml @ 167 mls/hr IVPB Q12HR [facility] Rx#: [id number] cefTRIAXone 1 gm In 50 Sodium Chloride 0.9% 50 ml @ 100 mls/hr IVPB Q24HR [facility] Rx#:[id number] Oral 1480 1100 Output: Urine 90 85 30 Other: Voiding Method Indwelling Catheter Indwelling Catheter Indwelling Catheter # Bowel Movements 0 - Labs CBC & Chem 7: 01/23/24 03:15 01/23/24 10:30 Labs: Abnormal Lab Results - Last 24 Hours (Table) 01/22/24 01/22/24 01/23/24 Range/Units 15:20 22:08 03:09 WBC (3.8-10.6) k/uL RBC (4.30-5.90) m/uL Hgb (13.0-17.5) gm/dL Hct (39.0-53.0) % RDW (11.5-15.5) % Plt Count (150-450) k/uL Neutrophils # (Manual) (1.3-7.7) k/uL Sodium 118 L* 121 L 120 L (137-145) mmol/L Chloride 96 L (98-107) mmol/L Carbon Dioxide 14 L (22-30) mmol/L BUN 25 H (9-20) mg/dL Glucose 151 H (74-99) mg/dL Calcium 7.1 L (8.4-10.2) mg/dL 01/23/24 01/23/24 01/23/24 Range/Units 03:15 03:15 10:30 WBC 22.9 H (3.8-10.6) k/uL RBC 2.98 L (4.30-5.90) m/uL Hgb 9.2 L (13.0-17.5) gm/dL Hct 29.0 L (39.0-53.0) % RDW 16.1 H (11.5-15.5) % Plt Count 125 L D (150-450) k/uL Neutrophils # (Manual) 21.00 H (1.3-7.7) k/uL Sodium 121 L 125 L (137-145) mmol/L Chloride (98-107) mmol/L Carbon Dioxide 15 L (22-30) mmol/L BUN 27 H (9-20) mg/dL Glucose 113 H (74-99) mg/dL Calcium 7.1 L (8.4-10.2) mg/dL Microbiology - Last 24 Hours (Table) 01/22/24 15:20 Blood Culture Gram Stain - Preliminary Blood 01/22/24 15:20 Blood Culture Gram Stain - Preliminary Blood 01/21/24 11:20 Blood Culture Gram Stain - Preliminary Blood Blood Culture - Preliminary Methicillin resist S. aureus Molecular ID 01/21/24 12:00 Gram Stain - Preliminary Ascites Fluid Body Fluid Culture - Preliminary
--- NOTE | 2024-01-24 17:13 | P.PN ---
Subjective Progress Note Date: 01/24/24 HISTORY OF PRESENT ILLNESS: This is a 63 year old male with a previous medical history significant for hypertension and hypertensive cardiovascular disease, hyperlipidemia, history of pancreatitis in the past along with prior history of sepsis due to cellulitis about 2 year ago, history of chronic alcoholic hepatitis with alcoholic liver cirrhosis for which he has been following with Dr. Smith as an outpatient and has been getting a weekly paracentesis at [facility] every Friday, patient was recently hospitalized at [facility] from two 01/05 2024 for significant hyponatremia with a sodium level as low as 118, patient was treated with fluid restriction as well as salt tablets, and he was treated with IV diuretics in the form of Lasix and spironolactone, his sodium got as good as 123, I believe the patient does have reset osmostat at this point in time, and he has a new baseline at around 04/29/2024, patient was brought into the emergency department at [facility] this time because of recurrent falls over the last few weeks with increased falls 3 times, he fell against his right shoulder, he has limited range of motion of the right shoulder, patient has minimal bruises in the right knee, he has significant bruising in the left hip, he does appear to have edema in the abdomen as well as the upper thigh, he does not appear to have a significant edema both lower extremities, initially was started on Lasix 40 mg IV push every 12 hours, and the patient was having good urine output, his sodium went up to 115, then the patient sodium went down to 114 after he was given 60 cc of 3% hypertonic solution, therefore he was taken off that after nephrology seen the patient, and he was started on normal saline 1 L over the next hour, recheck his sodium level at 330, he was also started on Sandostatin 100 mcg IV push every 8 hours for hepatorenal syndrome, patient was admitted to the hospital he was also found to have a significant leukocytosis he was started on ceftriaxone, he had paracentesis in the ICU and his fluid were sent for cell count and differential rule out spontaneous bacterial peritonitis patient does not appear to have any fever or chills at this time he does not have any fever at this point in time either. 01/21: Patient is laying down in bed he appears to be very weak, he is in atrial fibrillation with heart rate is around 116, patient has no chest pain, he appears to be somewhat short of breath, he has been on fluid restriction, he is asking to reduce his fluid restriction to 1500 cc in a 24 hours, will continue to follow-up with the patient very closely, will obtain cardiology consultation, patient continues to have significant pain in his shoulders, he was started on morphine 2 mg IV push every 4 hours as needed for pain control, we will continue to follow-up the patient in the intensive care unit, monitor input and output and daily weight, blood cultures are positive for methicillin-resistant Staphylococcus aureus, patient was started on IV antibiotic in the form of vancomycin pharmacy to dose his peak and trough, continue ceftriaxone 1 g every back every 24 hours, patient continues to have leukocytosis, we will monitor the patient very closely. Infectious disease consultation will be obtained. 01/22: Patient sitting up in bed in no apparent distress, he is more awake and more alert today, his sodium is at 125, we will discontinue hypertonic saline 3%, continue patient on sodium bicarbonate tablet 650 mg orally twice every day, monitor the patient CMP over the next 24 hours, continue fluid restriction 1500 cc, continue IV antibiotic in the form of vancomycin and Rocephin, consult infectious disease Dr. Randle, patient has been followed by pulmonary medicine as well as nephrology, will continue to follow-up with the patient very closely patient was seen in consultation by cardiology, he was started on metoprolol 12.5 mg orally 3 times every day, will continue rate control, patient is not a candidate for anticoagulation due to his increased risk of bleeding. Echocardiogram showed ejection fraction of 55%, with moderate mitral regurgitation and aortic regurgitation with a large pericardial effusion without evidence of tamponade cardiology is following. 01/23: Patient sitting up in the bed that he appears to be somewhat short of breath, he continues to be in the fluid restriction, his last sodium is 127, he was started on sodium bicarbonate drip by nephrology, he did receive 1 dose of Lasix and his urine output is very low, patient appears to be edematous at this time, he does appear to have a significant pericardial effusion, will consult cardiothoracic surgery for possible pericardiocentesis, patient also will be started on Lasix 80 mg IV push every 12 hours, continue Levophed drip at this time, monitor the patient very closely, patient appears to be critical at this p oint in time, I spoke with the patient about his current prognosis and he continues to be full code for now. REVIEW OF SYSTEMS: Constitutional: No documented fever, no chills, no night sweats. No weight change. positive for weakness, positive for fatigue or lethargy. No daytime sleepiness. HEENT: No headache. No blurred vision or double vision, no loss of vision. No loss of Hearing, no ringing in the ears, no dizziness. No nasal drainage or congestion. No epistaxis. No sore throat. Lungs: positive for shortness of breath, occasional cough, no sputum production. positive for wheezing. Reports dyspnea with activity. Cardiovascular: No chest pain, positive for lower extremity edema. No palpitations. No paroxysmal nocturnal dyspnea. No orthopnea. No lightheadedness or dizziness. No syncopal episodes. Abdominal: Reports no abdominal pain. No nausea, vomiting. no diarrhea. No constipation. No bloody or tarry stools reports loss of appetite. Genitourinary: No dysuria, increased frequency, urgency. No urinary retention. Musculoskeletal: No myalgias. positive for muscle weakness, no gait dysfunction, positive for frequent falls. No back pain. No neck pain. Integumentary: No wounds, no lesions. No rash or pruritus. Positive for unusual bruising. No change in hair or nails. Positive for ecchymosis of the right knee. Neurologic: No aphasia. No facial droop. No change in mentation. No head injury. No headache. No paralysis. No paresthesia. Psychiatric: positive for depression. positive for anxiety. No mood swings. Endocrine: No abnormal blood sugars. No weight change. PHYSICAL EXAMINATION: General: 63-year-old male is sitting up in bed in moderate respiratory distress with audible wheezes HEENT: Head is atraumatic, normocephalic, pupils were equal round reactive to light and recommendation, extraocular muscle movement were intact, sclera are deeply icteric, conjunctivae were pale, mucous membranes of the mouth are somewhat dry. Neck: Supple, positive for JVP, normal carotid upstroke bilaterally, no lymphadenopathy. Chest: Decreased breath sounds at the bases, few rhonchi, positive for expiratory wheezes, no chest wall tenderness, positive for intercostal retractions. Heart: First heart sound is normal, second heart sound is normal there is BLANCA 2/6 located at the left sternal border, irregular due to atrial fibrillation. Abdomen: Soft, distended moderate ascites, no tenderness, positive bowel sounds. Extremities: There is +2 edema no calf tenderness DP +2 bilaterally. Neurologic examination: Patient is awake alert and oriented X 3, cranial nerves II-12 appear grossly intact, muscle power were 4 out of 5 in upper extremities and 3 out of 5 in bilateral lower extremities, deep tendon reflexes normal bilaterally. ASSESSMENT AND PLAN: 1. 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 patient is back on sodium chloride tablet 1 g orally twice every day fluid restriction 1500 cc, patient also will be started on Lasix 80 mg IV push every 12 hours he was started on sodium bicarbonate drip at 50 cc an hour. 2. MRSA bacteremia. Continue patient on IV antibiotic in the form of vancomycin with pharmacy to dose his peak and trough, continue ceftriaxone 1 g piggyback every 24 hours, infectious disease consultation Dr. Randle. 3. Atrial fibrillation patient is not a candidate for anticoagulation at this point in time, continue patient on metoprolol 12.5 mg orally 3 times every day, cardiology consultation appreciated. 4. Acute kidney injury due to acute tubular necrosis and vasomotor nephropathy . Monitor the patient CMP 5. Hyperkalemia due to acute kidney injury due to ATN and the use of spironolactone. Resolved. 6. None anion gap metabolic acidosis. Patient was started on sodium bicarbonate drip. 7. Chronic liver cirrhosis with recurrence ascites. Status post weekly paracentesis. He just had last Friday. Fluid did not show evidence of any WBC no evidence of spontaneous bacterial peritonitis. 8. Hepatorenal syndrome. Continue patient on Sandostatin 100 mcg IV push every 8 hours. 9. GERD. Continue patient on Protonix 40 mg orally once every day. 10. DVT prophylaxis. Bilateral knee-high TAMI hose. 11. Orthostatic hypotension continue patient on midodrine 10 mg orally 3 times every day. 12. Right shoulder pain likely related to rotator cuff tear continue current pain management for now. 13. Medical debility due to underlying liver cirrhosis physical therapy evaluation. 14. Large pericardial effusion without evidence of tamponade cardiology is following. We will consult cardiothoracic surgery for possible pericardiocentesis if needed. 15. Overall prognosis very guarded. 16. Patient is full code. Objective - Vital Signs Vital signs: Vital Signs Temp 97.7 F 01/24/24 12:00 Pulse 76 01/24/24 14:15 Resp 19 01/24/24 14:15 BP 75/46 01/24/24 14:00 Pulse Ox 92 L 01/24/24 14:15 FiO2 Intake & Output 01/23/24 01/24/24 01/24/24 18:59 06:59 18:59 Intake Total 3143.663 6007.623 4360.661 Output Total 60 100 55 Balance 3083.663 5769.149 3896.661 Weight 89.7 kg Intake: IV 270 240 130 Sodium Chloride 3%( 150 Hypertonic) 500 ml @ 25 mls/hr IV .Q20H [facility]GETT Rx#: [id number] kvo 120 240 130 Intake, IV Titration 1773.663 293.762 0937.661 Amount Albumin Human 25% 50 ml 50 In Empty Bag 1 bag @ 50 mls/hr IVPB ONCE ONE Rx#: [id number] Norepinephrine 4 mg In 223.663 153.516 241.661 Sodium Chloride 0.9% 250 ml @ 0.03 MCG/KG/MIN 9. 332 mls/hr IV .Q24H [facility]GETT Rx#:[id number] Sodium Chloride 0.45% 1, 225 000 ml @ 75 mls/hr IV . [id number] [facility] with Sodium Bicarb (1 Meq/ml) 100 ml Rx#:[id number] Sodium Chloride 0.9% 1, 1000 000 ml @ 999 mls/hr IV . Q1H1M ONE Rx#:[id number] Vancomycin 1,500 mg In 500 Sodium Chloride 0.9% 500 ml 500 ml @ 167 mls/hr IVPB HS [facility] Rx#:[id number] Vancomycin 1,500 mg In 500 500 Sodium Chloride 0.9% 500 ml 500 ml @ 167 mls/hr IVPB Q12HR [facility] Rx#: [id number] cefTRIAXone 1 gm In 50 Sodium Chloride 0.9% 50 ml @ 100 mls/hr IVPB Q24HR [facility] Rx#:[id number] Oral 3154 [id number] 2221 Output: Urine 60 100 55 Other: Voiding Method Indwelling Catheter Indwelling Catheter Indwelling Catheter - Labs CBC & Chem 7: 01/24/24 06:30 01/24/24 12:42 Labs: Abnormal Lab Results - Last 24 Hours (Table) 01/23/24 01/24/24 01/24/24 Range/Units 22:49 06:30 06:30 WBC 13.6 H (3.8-10.6) k/uL RBC 2.88 L (4.30-5.90) m/uL Hgb 9.0 L (13.0-17.5) gm/dL Hct 28.3 L (39.0-53.0) % RDW 16.1 H (11.5-15.5) % Plt Count 101 L (150-450) k/uL Neutrophils # 11.6 H (1.3-7.7) k/uL Lymphocytes # 0.3 L (1.0-4.8) k/uL Monocytes # 1.3 H (0-1.0) k/uL Sodium 123 L 122 L (137-145) mmol/L Carbon Dioxide 14 L (22-30) mmol/L BUN 32 H (9-20) mg/dL Creatinine 1.38 H (0.66-1.25) mg/dL Glucose 109 H (74-99) mg/dL Calcium 7.2 L (8.4-10.2) mg/dL Total Bilirubin 2.8 H (0.2-1.3) mg/dL AST 132 H (17-59) U/L ALT 79 H (4-49) U/L Total Protein 4.7 L (6.3-8.2) g/dL Albumin 2.1 L (3.5-5.0) g/dL Vancomycin Trough ug/mL 01/24/24 01/24/24 Range/Units 07:53 12:42 WBC (3.8-10.6) k/uL RBC (4.30-5.90) m/uL Hgb (13.0-17.5) gm/dL Hct (39.0-53.0) % RDW (11.5-15.5) % Plt Count (150-450) k/uL Neutrophils # (1.3-7.7) k/uL Lymphocytes # (1.0-4.8) k/uL Monocytes # (0-1.0) k/uL Sodium 127 L (137-145) mmol/L Carbon Dioxide (22-30) mmol/L BUN (9-20) mg/dL Creatinine (0.66-1.25) mg/dL Glucose (74-99) mg/dL Calcium (8.4-10.2) mg/dL Total Bilirubin (0.2-1.3) mg/dL AST (17-59) U/L ALT (4-49) U/L Total Protein (6.3-8.2) g/dL Albumin (3.5-5.0) g/dL Vancomycin Trough 34.5 H* ug/mL Microbiology - Last 24 Hours (Table) 01/22/24 15:20 Blood Culture Gram Stain - Preliminary Blood Blood Culture - Preliminary Methicillin resist S. aureus 01/22/24 15:20 Blood Culture Gram Stain - Preliminary Blood Blood Culture - Preliminary Methicillin resist S. aureus 01/21/24 12:00 Gram Stain - Preliminary Ascites Fluid Body Fluid Culture - Preliminary 01/22/24 02:30 Urine Culture - Final Urine,Catheterized 01/21/24 11:20 Blood Culture Gram Stain - Final Blood Blood Culture - Final Methicillin resist S. aureus Molecular ID
--- NOTE | 2024-01-24 17:55 | XR ---
EXAMINATION TYPE: XR chest 1V DATE OF EXAM: 01/24/2024 5:48 PM CLINICAL INDICATION: Male, 63 years old with history of SOB/Pericardial effusion; H COMPARISON: 01/20/2024 TECHNIQUE: XR chest 1V Frontal view of the chest. FINDINGS: Lungs/Pleura: Airspace opacities in the right middle lobe. There is no evidence of pleural effusion, left focal consolidation, or pneumothorax. Pulmonary vascularity: Unremarkable. Heart/mediastinum: Cardiomediastinal silhouette is enlarged. Musculoskeletal: No acute osseous pathology. IMPRESSION: Right middle lobe airspace opacities correlate for pneumonia. [facility], , 01/24/2024 5:53 PM
[2024-01-24] MEDS: FUROSEMIDE 10 MG/ML 10 ML VIAL IV SCH (20:31)
[2024-01-24] MEDS: VANCOMYCIN 1,500 MG in SODIUM CHLORIDE 0.9% 500 ML 500 ML IVPB SCH (20:31)
[2024-01-24] MEDS: NOREPINEPHRINE 32 MG in SODIUM CHLORIDE 0.9% 250 ML IV SCH (20:51)
--- NOTE | 2024-01-24 23:15 | P.CONS ---
History of Present Illness - Reason for Consult Consult date: 01/24/24 MRSA bacteremia Requesting physician: Reggie Cho - Chief Complaint Weakness and fall x few days - History of Present Illness Patient is a 63-year-old male with a past medical history significant for hypertension, cirrhosis of the liver pancreatitis pneumonia patient was admitted to the hospital about 4 days ago after the patient was noted to have significant hyponatremia on a blood draw that was done by the PCP as reported by the patient daughter however per the ER documentation the patient has been brought to the hospital by EMS after patient did have a fall patient denies hitting her head he did have a skin tear to the left elbow and some skin tears lower extremity patient denies high-grade fever or any chills no headache or URI symptoms no chest pain shortness with occasional cough and abdominal pain no no diarrhea no urinary symptoms patient presentation to the hospital was afebrile and no fever have been recorded subsequently patient was mildly tachycardic at times and hypotensive but not hypoxic and no need for supplemental oxygen patient did have a white count of 15.8 on admission which was up to 22.9 yesterday however is down to 13.6 today BUN and creatinine has been mildly elevated sodium is up to 127 did have elevated lactic acid on admission subsequent normalized liver isms mildly elevated urine with moderate leukocyte esterase 96 WBC he did have a paracentesis with only 4 WBC patient blood cultures came back positive with MRSA patient was started on vancomycin infectious disease was consulted for further management of antibiotic therapy Review of Systems Positive point and negatives has been mentioned in the HPI, complete review of systems was performed and all other systems are negative Past Medical History Past Medical History: Hypertension, Liver Disease, Pneumonia Additional Past Medical History / Comment(s): Liver cirrhosis, splenomegaly, pancreatitis-pt states pancreatitis was side effect from Lisinopril, pt denies h x of alcoholism/drinking heavily, cellulitis with sepsis, ASCITES History of Any Multi-Drug Resistant Organisms: MRSA Year Discovered:: 01/21/24 MDRO Source:: blood Past Surgical History: No Surgical Hx Reported Additional Past Surgical History / Comment(s): dental extraction, cataract bilateral - Pt states he was awake for both procedure and has never had general anesthesia Past Anesthesia/Blood Transfusion Reactions: No Reported Reaction, Unable to Obtain Additional Past Anesthesia/Blood Transfusion Reaction / Comm: Pt has never had anesthesia Past Psychological History: No Psychological Hx Reported Smoking Status: Never smoker Past Alcohol Use History: None Reported Past Drug Use History: None Reported - Past Family History Mother Family Medical History: Hypertension Additional Family Medical History / Comment(s): Mother lived to be 91 yrs old. Father Family Medical History: CVA/TIA Additional Family Medical History / Comment(s): Father of a CVA at the age of 65yrs. Son(s) Family Medical History: No Reported History Daughter(s) Family Medical History: No Reported History Medications and Allergies Home Medications Medication Instructions Recorded Confirmed Type Pantoprazole [Protonix] 40 mg PO AC-BRKFST tab 06/22/21 01/20/24 Rx Midodrine [ProAmatine] 5 mg PO TID 07/13/21 01/20/24 History Folic Acid 1 mg PO DAILY tab 07/18/21 01/20/24 Rx Potassium Chloride ER [K-Dur 20] 20 meq PO DAILY tablet 07/18/21 01/20/24 Rx Albuterol Inhaler [Ventolin Hfa 2 puff INHALATION RT-TID PRN 08/06/23 01/20/24 History Inhaler] Furosemide [Lasix] 40 mg PO DAILY tab 08/27/23 01/20/24 Rx Sodium Chloride Tab 1 gm PO BID 09/17/23 01/20/24 History traZODone HCL 150 mg PO HS 12/31/23 01/20/24 History Spironolactone [Aldactone] 50 mg PO BID #60 tab 01/05/24 01/20/24 Rx Allergies Allergy/AdvReac Type Severity Reaction Status Date / Time lisinopril AdvReac causes Verified 01/20/24 19:50 pancreatitis Physical Exam Vitals: Vital Signs Temp Pulse Resp BP Pulse Ox 01/24/24 12:15 92 21 90/51 99 01/24/24 12:00 97.7 F 96 15 91/44 98 01/24/24 11:45 89 16 91/44 99 01/24/24 11:30 88 11 L 89/51 99 01/24/24 11:15 97 24 89/51 99 01/24/24 11:00 23 95/52 98 01/24/24 10:45 93 12 95/52 98 01/24/24 10:30 92 17 79/59 99 01/24/24 10:15 93 16 79/59 98 01/24/24 10:00 96 21 98/57 98 01/24/24 09:45 85 25 H 98/57 99 01/24/24 09:30 91 27 H 96/66 98 01/24/24 09:15 98 26 H 96/66 99 01/24/24 09:00 17 88/57 99 01/24/24 08:45 102 H 26 H 88/57 100 01/24/24 08:30 98 16 97/50 98 01/24/24 08:15 80 19 97/50 98 01/24/24 08:00 98.0 F 94 13 97/44 91 L 01/24/24 07:45 103 H 18 97/44 90 L 01/24/24 07:30 96 29 H 94/44 99 01/24/24 07:15 96 26 H 94/44 98 01/24/24 07:00 89 25 H 94/44 98 01/24/24 06:30 91 22 94/48 68 L 01/24/24 06:00 92 22 94/48 97 01/24/24 05:30 79 15 90/63 97 01/24/24 05:00 87 22 90/63 94 L 01/24/24 04:30 111 H 24 89/65 95 01/24/24 04:00 98.4 F 88 19 112/55 95 01/24/24 03:30 95 26 H 87/52 96 01/24/24 03:15 95 01/24/24 03:00 81 13 87/52 01/24/24 02:45 94 L 01/24/24 02:30 80 14 90/57 95 01/24/24 02:00 90 15 90/57 95 01/24/24 01:30 90 12 82/47 94 L 01/24/24 01:00 92 14 93/56 95 01/24/24 00:45 86 14 93/56 95 01/24/24 00:30 95 14 93/56 94 L 01/24/24 00:00 98.2 F 84 21 85/51 96 01/23/24 23:30 86 29 H 88/48 95 01/23/24 23:15 94 29 H 83/54 96 01/23/24 23:00 96 29 H 97/42 95 01/23/24 22:45 85 30 H 97/42 95 01/23/24 22:30 87 25 H 92/59 96 01/23/24 22:15 86 29 H 92/59 96 01/23/24 22:00 92 23 96/49 94 L 01/23/24 21:00 103 H 25 H 98/59 95 01/23/24 20:45 108 H 15 89/60 89 L 01/23/24 20:30 89 24 92/55 93 L 01/23/24 20:00 98.5 F 85 15 90/48 96 01/23/24 19:30 82 22 105/56 93 L 01/23/24 19:00 91 23 83/57 96 01/23/24 18:45 85 16 83/57 96 01/23/24 18:30 99 17 90/49 96 01/23/24 18:15 82 26 H 90/49 90 L 01/23/24 18:00 92 15 93/48 96 01/23/24 17:45 98 22 85/56 93 L 01/23/24 17:30 88 24 89/51 97 01/23/24 17:15 107 H 18 81/66 96 01/23/24 17:00 81 24 82/39 90 L 01/23/24 16:45 86 18 85/44 92 L 01/23/24 16:30 91 20 76/56 01/23/24 16:15 112 H 18 102/58 96 01/23/24 16:00 98.2 F 103 H 24 97/51 93 L 01/23/24 15:45 107 H 23 88/50 93 L 01/23/24 15:30 96 20 85/48 97 01/23/24 15:15 91 18 84/47 98 01/23/24 15:00 98 24 88/63 94 L 01/23/24 14:45 96 19 82/56 91 L 01/23/24 14:30 100 20 82/51 94 L 01/23/24 14:15 94 16 75/57 96 01/23/24 14:00 104 H 14 82/52 96 24 13:45 93 16 78/63 93 L 01/23/24 13:30 105 H 22 97/53 77 L 01/23/24 13:15 101 H 20 95/56 95 01/23/24 13:00 105 H 20 80/44 96 01/23/24 12:45 98 19 86/52 87 L Intake and Output 01/23/24 01/24/24 01/24/24 22:59 06:59 14:59 Intake Total 1354.496 046.702 2536.691 Output Total 45 75 45 Balance 1309.496 598.740 3081.691 Intake: IV 160 160 110 kvo 160 160 110 Intake, IV Titration 564.496 153.516 751.691 Amount Norepinephrine 4 mg In 64.496 153.516 176.691 Sodium Chloride 0.9% 250 ml @ 0.03 MCG/KG/MIN 9. 332 mls/hr IV .Q24H [facility] Rx#:[id number] Sodium Chloride 0.45% 1, 75 000 ml @ 75 mls/hr IV . [id number] [facility] with Sodium Bicarb (1 Meq/ml) 100 ml Rx#:[id number] Vancomycin 1,500 mg In 500 Sodium Chloride 0.9% 500 ml 500 ml @ 167 mls/hr IVPB HS [facility] Rx#:[id number] Vancomycin 1,500 mg In 500 Sodium Chloride 0.9% 500 ml 500 ml @ 167 mls/hr IVPB Q12HR [facility] Rx#: [id number] Oral 630 590 Output: Urine 45 75 45 Other: Voiding Method Indwelling Catheter Indwelling Catheter Indwelling Catheter Weight 89.7 kg GENERAL DESCRIPTION: Elderly male lying in bed, no distress. No tachypnea or accessory muscle of respiration use. HEENT: Shows Pallor , no scleral icterus. Oral mucous membrane is dry. No pharyngeal erythema or thrush NECK: Trachea central, no thyromegaly. LUNGS: Unlabored breathing. Clear to auscultation anteriorly. HEART: S1, S2, regular rate and rhythm. No loud murmur ABDOMEN: Soft, no tenderness , guarding or rigidity, no organomegaly EXTREMITIES: No edema of feet. SKIN: Multiple skin bruises but no significant redness or drainage NEUROLOGICAL: The patient is awake, alert, oriented x3, mood and affect normal. Results CBC & Chem 7: 01/24/24 06:30 01/24/24 12:42 Labs: Abnormal Lab Results - Last 24 Hours (Table) 01/23/24 01/24/24 01/24/24 Range/Units 22:49 06:30 06:30 WBC 13.6 H (3.8-10.6) k/uL RBC 2.88 L (4.30-5.90) m/uL Hgb 9.0 L (13.0-17.5) gm/dL Hct 28.3 L (39.0-53.0) % RDW 16.1 H (11.5-15.5) % Plt Count 101 L (150-450) k/uL Neutrophils # 11.6 H (1.3-7.7) k/uL Lymphocytes # 0.3 L (1.0-4.8) k/uL Monocytes # 1.3 H (0-1.0) k/uL Sodium 123 L 122 L (137-145) mmol/L Carbon Dioxide 14 L (22-30) mmol/L BUN 32 H (9-20) mg/dL Creatinine 1.38 H (0.66-1.25) mg/dL Glucose 109 H (74-99) mg/dL Calcium 7.2 L (8.4-10.2) mg/dL Total Bilirubin 2.8 H (0.2-1.3) mg/dL AST 132 H (17-59) U/L ALT 79 H (4-49) U/L Total Protein 4.7 L (6.3-8.2) g/dL Albumin 2.1 L (3.5-5.0) g/dL Vancomycin Trough ug/mL 01/24/24 Range/Units 07:53 WBC (3.8-10.6) k/uL RBC (4.30-5.90) m/uL Hgb (13.0-17.5) gm/dL Hct (39.0-53.0) % RDW (11.5-15.5) % Plt Count (150-450) k/uL Neutrophils # (1.3-7.7) k/uL Lymphocytes # (1.0-4.8) k/uL Monocytes # (0-1.0) k/uL Sodium (137-145) mmol/L Carbon Dioxide (22-30) mmol/L BUN (9-20) mg/dL Creatinine (0.66-1.25) mg/dL Glucose (74-99) mg/dL Calcium (8.4-10.2) mg/dL Total Bilirubin (0.2-1.3) mg/dL AST (17-59) U/L ALT (4-49) U/L Total Protein (6.3-8.2) g/dL Albumin (3.5-5.0) g/dL Vancomycin Trough 34.5 H* ug/mL Microbiology - Last 24 Hours (Table) 01/21/24 12:00 Gram Stain - Preliminary Ascites Fluid Body Fluid Culture - Preliminary 01/22/24 02:30 Urine Culture - Final Urine,Catheterized 01/21/24 11:20 Blood Culture Gram Stain - Final Blood Blood Culture - Final Methicillin resist S. aureus Molecular ID 01/22/24 15:20 Blood Culture Gram Stain - Preliminary Blood 01/22/24 15:20 Blood Culture Gram Stain - Preliminary Blood Assessment and Plan (1) MRSA bacteremia Current Visit: Yes Status: Acute Code(s): R78.81 - BACTEREMIA; B95.62 - METHICILLIN RESIS STAPH INFCT CAUSING DISEASES [facility] SNOMED Code(s): 19196868053680396 (2) Leukocytosis Current Visit: Yes Status: Acute Code(s): D72.829 - ELEVATED WHITE BLOOD CELL COUNT, UNSPECIFIED SNOMED Code(s): 665139025 (3) Skin tear Current Visit: Yes Status: Acute Code(s): IKH3794 - SNOMED Code(s): 869495305 Plan: 1patient with MRSA bacteremia in this patient presented to the hospital with fall did have some skin maceration noticed to have significant hyponatremia however patient did not have any fever during this admission did have elevated white count of chest x-ray was negative urine is positive however urine cultures came back negative source of this bacteremia is likely skin and soft tissue however if any persistent bacteremia will need to rule out endovascular source he already has the echocardiogram did not show any vegetation and large effusion but no tamponade phenomena 2-blood culture will be repeated to document clearance of his bacteremia and if any persistent bacteremia may need a NICOLE 3-for now continue patient on vancomycin pharmacy to dose or watching his kidney function closely Family at the bedside questions answered We will follow on clinical condition and cultures to further adjust medication if needed Thank you for this consultation we will follow the patient along with you Dictation was produced using [employer] dictation software. please excuse any grammatical, word or spelling errors. Time with Patient: Greater than 30
--- NOTE | 2024-01-25 01:58 | P.PN ---
Subjective Progress Note Date: 01/24/24 SUBJECTIVE: BP 90/50, heart rate 101, telemetry shows atrial fibrillation with RVR. Patient reports mild shortness of breath. Denies any chest pain chest pressure. PHYSICAL EXAMINATION Vital signs reviewed. Head: Normocephalic. Eyes: Sclerae nonicteric. Neck: Brisk carotid upstroke, no jugular venous distention. Lungs: Poor inspiratory effort with no crackles audible Heart: Irregularly irregular pulse with systolic and diastolic murmur audible Abdomen: Soft nontender, bowel sounds present, Extremities: No edema, Neuro: Alert, oriented, no focal neurological deficits. Detailed neuro exam was not performed. 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 Moderate MR, moderate aortic regurgitation PLAN On IV heparin drip for anticoagulation Continue metoprolol uptitrate as tolerated. Continue IV Lasix twice daily, monitor urine output Patient may need NICOLE to evaluate for endocarditis on Friday. At this time patient's respiratory status is not optimized. Wyatt Armendariz MD, FACC, RPVI Thank you for allowing [facility] to participate in this patient's care. Please contact us in case of any followup questions. Objective - Vital Signs Vital signs: Vital Signs Temp 98.1 F 01/25/24 00:00 Pulse 110 H 01/25/24 00:00 Resp 15 01/25/24 00:00 BP 91/49 01/25/24 00:00 Pulse Ox 97 01/25/24 00:00 FiO2 Intake & Output 01/24/24 01/24/24 01/25/24 06:59 18:59 06:59 Intake Total 4415.106 5593.178 960.210 Output Total 100 77 55 Balance 4047.537 9534.178 905.210 Weight 89.7 kg Intake: IV 240 180 770 Sodium Chloride 0.45% 1, 250 000 ml @ 50 mls/hr IV . Q22H [facility] with Sodium Bicarb (1 Meq/ml) 100 ml Rx#:[id number] Vancomycin 1,500 mg In 500 Sodium Chloride 0.9% 500 ml 500 ml @ 167 mls/hr IVPB Q12HR [facility] Rx#: [id number] kvo 240 180 20 Intake, IV Titration 627.494 3444.178 190.210 Amount Albumin Human 25% 50 ml 50 In Empty Bag 1 bag @ 50 mls/hr IVPB ONCE ONE Rx#: [id number] Norepinephrine 32 mg In 16.629 Sodium Chloride 0.9% 250 ml @ 0.03 MCG/KG/MIN 1. 295 mls/hr IV .Q24H [facility] Rx#:[id number] Norepinephrine 4 mg In 153.516 256.178 173.581 Sodium Chloride 0.9% 250 ml @ 0.03 MCG/KG/MIN 9. 332 mls/hr IV .Q24H [facility] Rx#:[id number] Sodium Chloride 0.45% 1, 525 000 ml @ 50 mls/hr IV . Q22H [facility] with Sodium Bicarb (1 Meq/ml) 100 ml Rx#:[id number] Vancomycin 1,500 mg In 500 Sodium Chloride 0.9% 500 ml 500 ml @ 167 mls/hr IVPB HS [facility] Rx#:[id number] Vancomycin 1,500 mg In 500 Sodium Chloride 0.9% 500 ml 500 ml @ 167 mls/hr IVPB Q12HR [facility] Rx#: [id number] Oral 630 1190 Output: Urine 100 77 55 Other: Voiding Method Indwelling Catheter Indwelling Catheter Indwelling Catheter - Labs CBC & Chem 7: 01/24/24 06:30 01/24/24 12:42 Labs: Abnormal Lab Results - Last 24 Hours (Table) 01/24/24 01/24/24 01/24/24 Range/Units 06:30 06:30 07:53 WBC 13.6 H (3.8-10.6) k/uL RBC 2.88 L (4.30-5.90) m/uL Hgb 9.0 L (13.0-17.5) gm/dL Hct 28.3 L (39.0-53.0) % RDW 16.1 H (11.5-15.5) % Plt Count 101 L (150-450) k/uL Neutrophils # 11.6 H (1.3-7.7) k/uL Lymphocytes # 0.3 L (1.0-4.8) k/uL Monocytes # 1.3 H (0-1.0) k/uL Sodium 122 L (137-145) mmol/L Carbon Dioxide 14 L (22-30) mmol/L BUN 32 H (9-20) mg/dL Creatinine 1.38 H (0.66-1.25) mg/dL Glucose 109 H (74-99) mg/dL Calcium 7.2 L (8.4-10.2) mg/dL Total Bilirubin 2.8 H (0.2-1.3) mg/dL AST 132 H (17-59) U/L ALT 79 H (4-49) U/L Total Protein 4.7 L (6.3-8.2) g/dL Albumin 2.1 L (3.5-5.0) g/dL Vancomycin Trough 34.5 H* ug/mL 01/24/24 Range/Units 12:42 WBC (3.8-10.6) k/uL RBC (4.30-5.90) m/uL Hgb (13.0-17.5) gm/dL Hct (39.0-53.0) % RDW (11.5-15.5) % Plt Count (150-450) k/uL Neutrophils # (1.3-7.7) k/uL Lymphocytes # (1.0-4.8) k/uL Monocytes # (0-1.0) k/uL Sodium 127 L (137-145) mmol/L Carbon Dioxide (22-30) mmol/L BUN (9-20) mg/dL Creatinine (0.66-1.25) mg/dL Glucose (74-99) mg/dL Calcium (8.4-10.2) mg/dL Total Bilirubin (0.2-1.3) mg/dL AST (17-59) U/L ALT (4-49) U/L Total Protein (6.3-8.2) g/dL Albumin (3.5-5.0) g/dL Vancomycin Trough ug/mL Microbiology - Last 24 Hours (Table) 01/22/24 15:20 Blood Culture Gram Stain - Preliminary Blood Blood Culture - Preliminary Methicillin resist S. aureus 01/22/24 15:20 Blood Culture Gram Stain - Preliminary Blood Blood Culture - Preliminary Methicillin resist S. aureus 01/21/24 12:00 Gram Stain - Preliminary Ascites Fluid Body Fluid Culture - Preliminary 01/22/24 02:30 Urine Culture - Final Urine,Catheterized 01/21/24 11:20 Blood Culture Gram Stain - Final Blood Blood Culture - Final Methicillin resist S. aureus Molecular ID
[2024-01-25 06:36] LABS: ALT 68 U/L (4-49); AST 109 U/L (17-59); African American GFR (CKD) 51 (>60 ml/min/1.73 sqM); Albumin 2.3 g/dL (3.5-5.0); Alkaline Phosphatase 136 U/L (38-126); Anion Gap 9 mmol/L; Blood Urea Nitrogen 36 mg/dL (9-20); Calcium 7.7 mg/dL (8.4-10.2); Carbon Dioxide 12 mmol/L (22-30); Chloride 104 mmol/L (98-107); Glucose 100 mg/dL (74-99); Non-African American GFR(CKD) 44 (>60 ml/min/1.73 sqM); Potassium 4.2 mmol/L (3.5-5.1); Sodium 125 mmol/L (137-145); Total Bilirubin 3.3 mg/dL (0.2-1.3); Total Protein 4.9 g/dL (6.3-8.2)
[2024-01-25 08:03] LABS: Anisocytosis Slight; Basophils % (A) 0 %; Eosinophils % (A) 0 %; HCT 26.4 % (39.0-53.0); HGB 8.5 gm/dL (13.0-17.5); Hypochromasia Moderate; Lymphocytes # (A) 0.3 k/uL (1.0-4.8); Lymphocytes % (A) 2 %; MCH 31.5 pg (25.0-35.0); MCHC 32.1 g/dL (31.0-37.0); MCV 98.2 fL (80.0-100.0); Macrocytosis Slight; Mean Platelet Volume 8.1; Monocytes # (A) 1.6 k/uL (0-1.0); Monocytes % (A) 12 %; Neutrophils # (A) 11.6 k/uL (1.3-7.7); Neutrophils % (A) 85 %; RBC 2.68 m/uL (4.30-5.90); RDW 16.6 % (11.5-15.5); WBC 13.7 k/uL (3.8-10.6)
[2024-01-25 08:11] LABS: INR 2.1 (<1.2); Partial Thromboplastin Time 36.3 sec (22.0-30.0); Prothrombin Time 21.5 sec (10.0-12.5)
--- NOTE | 2024-01-25 08:23 | P.GSCN ---
History of Present Illness Consult date: 01/25/24 Reason for Consult: Large pericardial effusion without tamponade physiology Requesting physician: Reggie Cho History of present illness: This is a 63-year-old gentleman who follows outpatient with Dr. Cho for primary care as well as Dr. Smith for liver failure. He has a previous medical history of chronic alcoholic hepatitis with liver cirrhosis and weekly paracentesis, hypertension, pancreatitis, sepsis, previous alcohol abuse with cessation 7 years ago, umbilical hernia, and lifelong non-smoker. He had been admitted to the hospital at the end of December for significant hyponatremia. He presented to [facility] emergency room on January 20, 2024 with complaints of severe weakness and multiple falls without hitting his head and without loss of consciousness. During this admission he was found to have severe hyponatremia with SIADH, acute kidney injury, MRSA bacteremia, atrial fibrillation, non anion gap metabolic acidosis. 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 He had a transthoracic echocardiogram completed January 23, 2024 demonstrating normal left ventricular systolic function with EF 50 to 55%, moderate mitral and aortic regurgitation, mild tricuspid regurgitation, and large pericardial effusion without tamponade physiology. Due to the pericardial effusion consultation was placed to cardiothoracic surgery by Dr. Cho for treatment recommendations. Review of Systems Review of systems was completed and was negative except as noted - Constitutional Reports weakness - Cardiovascular Reports leg edema, Reports shortness of breath Past Medical History Past Medical History: Atrial Fibrillation, Hypertension, Liver Disease, Pneumonia Additional Past Medical History / Comment(s): Liver cirrhosis, splenomegaly, pancreatitis-pt states pancreatitis was side effect from Lisinopril, cellulitis with sepsis, ASCITES, umbilical hernia History of Any Multi-Drug Resistant Organisms: MRSA Year Discovered:: 01/21/24 MDRO Source:: blood Past Surgical History: No Surgical Hx Reported Additional Past Surgical History / Comment(s): dental extraction, cataract bilateral - Pt states he was awake for both procedure and has never had general anesthesia Past Anesthesia/Blood Transfusion Reactions: No Reported Reaction Additional Past Anesthesia/Blood Transfusion Reaction / Comm: Pt has never had anesthesia Past Psychological History: No Psychological Hx Reported Smoking Status: Never smoker Past Alcohol Use History: None Reported Additional Past Alcohol Use History / Comment(s): States he used to drink beer daily but quit 7 years ago Past Drug Use History: None Reported - Past Family History Mother Family Medical History: Hypertension Additional Family Medical History / Comment(s): Mother lived to be 91 yrs old. Father Family Medical History: CVA/TIA Additional Family Medical History / Comment(s): Father of a CVA at the age of 65yrs. Son(s) Family Medical History: No Reported History Daughter(s) Family Medical History: No Reported History Medications and Allergies Home Medications Medication Instructions Recorded Confirmed Type Pantoprazole [Protonix] 40 mg PO AC-BRKFST tab 06/22/21 01/20/24 Rx Midodrine [ProAmatine] 5 mg PO TID 07/13/21 01/20/24 History Folic Acid 1 mg PO DAILY tab 07/18/21 01/20/24 Rx Potassium Chloride ER [K-Dur 20] 20 meq PO DAILY tablet 07/18/21 01/20/24 Rx Albuterol Inhaler [Ventolin Hfa 2 puff INHALATION RT-TID PRN 08/06/23 01/20/24 History Inhaler] Furosemide [Lasix] 40 mg PO DAILY tab 08/27/23 01/20/24 Rx Sodium Chloride Tab 1 gm PO BID 09/17/23 01/20/24 History traZODone HCL 150 mg PO HS 12/31/23 01/20/24 History Spironolactone [Aldactone] 50 mg PO BID #60 tab 01/05/24 01/20/24 Rx Allergies Allergy/AdvReac Type Severity Reaction Status Date / Time lisinopril AdvReac causes Verified 01/20/24 19:50 pancreatitis Surgical - Exam Vital Signs Temp Pulse Resp BP Pulse Ox 98.8 F 130 H 20 118/90 100 01/20/24 19:04 01/20/24 19:04 01/20/24 19:04 01/20/24 19:04 01/20/24 19:04 CONSTITUTIONAL: Awake and alert, no pain, appears older than stated age EYES: Pupils equal, round, reactive to light, normal ocular movement ENT: Moist mucous membranes without oral lesions present NECK: No masses, no bruits, trachea midline RESPIRATORY: Lungs sounds diminished bilaterally with faint expiratory wheezes present. Respirations even, nonlabored. Currently on room air with oxygen saturation 95%. Strong cough CARDIOVASCULAR: S1, S2 present. Irregular rate and rhythm, atrial fibrillation on telemetry. Palpable peripheral pulses bilaterally. Bilateral lower extremity edema present. No calf pain or tenderness noted GASTROINTESTINAL: Abdomen soft, nontender, nondistended. Umbilical hernia pre sent. Active bowel sounds present 4 quadrants. GENITOURINARY: Cornell present draining clear yellow urine INTEGUMENTARY: Skin is warm and dry NEUROLOGIC: Cranial nerves II through XII intact, normal coordination, no obvious motor or sensory deficits, speech is normal MUSKULOSKELETAL: Able to move all extremities, strength equal bilaterally, normal posture PSYCHIATRIC: Alert and oriented to person place and time Results - Labs 01/24/24 06:30 01/25/24 05:50 Abnormal Lab Results - Last 24 Hours (Table) 01/24/24 01/24/24 01/25/24 Range/Units 07:53 12:42 05:50 Sodium 127 L 125 L (137-145) mmol/L Carbon Dioxide 12 L (22-30) mmol/L BUN 36 H (9-20) mg/dL Creatinine 1.61 H (0.66-1.25) mg/dL Glucose 100 H (74-99) mg/dL Calcium 7.7 L (8.4-10.2) mg/dL Total Bilirubin 3.3 H (0.2-1.3) mg/dL AST 109 H (17-59) U/L ALT 68 H (4-49) U/L Alkaline Phosphatase 136 H (38-126) U/L Total Protein 4.9 L (6.3-8.2) g/dL Albumin 2.3 L (3.5-5.0) g/dL Vancomycin Trough 34.5 H* ug/mL Microbiology - Last 24 Hours (Table) 01/24/24 08:59 Blood Culture Gram Stain - Preliminary Blood 01/22/24 15:20 Blood Culture Gram Stain - Preliminary Blood Blood Culture - Preliminary Methicillin resist S. aureus 01/22/24 15:20 Blood Culture Gram Stain - Preliminary Blood Blood Culture - Preliminary Methicillin resist S. aureus 01/21/24 12:00 Gram Stain - Preliminary Ascites Fluid Body Fluid Culture - Preliminary 01/22/24 02:30 Urine Culture - Final Urine,Catheterized 01/21/24 11:20 Blood Culture Gram Stain - Final Blood Blood Culture - Final Methicillin resist S. aureus Molecular ID Diabetes panel 01/24/24 01/25/24 Range/Units 12:42 05:50 Sodium 127 L 125 L (137-145) mmol/L Potassium 4.2 (3.5-5.1) mmol/L Chloride 104 (98-107) mmol/L Carbon Dioxide 12 L (22-30) mmol/L BUN 36 H (9-20) mg/dL Creatinine 1.61 H (0.66-1.25) mg/dL Glucose 100 H (74-99) mg/dL Calcium 7.7 L (8.4-10.2) mg/dL AST 109 H (17-59) U/L ALT 68 H (4-49) U/L Alkaline Phosphatase 136 H (38-126) U/L Total Protein 4.9 L (6.3-8.2) g/dL Albumin 2.3 L (3.5-5.0) g/dL Calcium panel 01/25/24 Range/Units 05:50 Calcium 7.7 L (8.4-10.2) mg/dL Albumin 2.3 L (3.5-5.0) g/dL Pituitary panel 01/24/24 01/25/24 Range/Units 12:42 05:50 Sodium 127 L 125 L (137-145) mmol/L Potassium 4.2 (3.5-5.1) mmol/L Chloride 104 (98-107) mmol/L Carbon Dioxide 12 L (22-30) mmol/L BUN 36 H (9-20) mg/dL Creatinine 1.61 H (0.66-1.25) mg/dL Glucose 100 H (74-99) mg/dL Calcium 7.7 L (8.4-10.2) mg/dL Adrenal panel 01/24/24 01/25/24 Range/Units 12:42 05:50 Sodium 127 L 125 L (137-145) mmol/L Potassium 4.2 (3.5-5.1) mmol/L Chloride 104 (98-107) mmol/L Carbon Dioxide 12 L (22-30) mmol/L BUN 36 H (9-20) mg/dL Creatinine 1.61 H (0.66-1.25) mg/dL Glucose 100 H (74-99) mg/dL Calcium 7.7 L (8.4-10.2) mg/dL Total Bilirubin 3.3 H (0.2-1.3) mg/dL AST 109 H (17-59) U/L ALT 68 H (4-49) U/L Alkaline Phosphatase 136 H (38-126) U/L Total Protein 4.9 L (6.3-8.2) g/dL Albumin 2.3 L (3.5-5.0) g/dL - Imaging Chest x-ray: report reviewed, image reviewed Additional studies: Echocardiogram films reviewed with Dr. Danielson Assessment and Plan Assessment: Large pericardial effusion without tamponade physiology found on transthoracic echocardiogram MRSA bacteremia, blood cultures from January 21 and January 23 positive, currently on vancomycin Atrial fibrillation, currently on low-dose beta-nicki Hypotension requiring vasopressor use, currently on levo, midodrine Hyponatremia, SIADH Acute kidney injury Nonanion gap metabolic acidosis, currently on sodium bicarb drip Hepatorenal syndrome, currently on IV Lasix and Sandostatin History of multiple recent falls without loss of consciousness Medical debility History of chronic alcoholic hepatitis with liver cirrhosis and weekly paracentesis History of hypertension History of pancreatitis History of sepsis Previous alcohol abuse with cessation 7 years ago Umbilical hernia, according to patient recommendation for surveillance, no surgery Lifelong non-smoker Plan: The patient was seen and examined laying in bed in the intensive care unit in no acute distress. Chart/diagnostics reviewed. The case was discussed with Dr. Danielson. Final plan to be determined regarding pericardial effusion. Continue IV antibiotics per infectious disease. Wean pressors as able. Per documentation patient may undergo transesophageal echocardiogram by cardiology once more clinically stable to rule out endocarditis. Medical management of other comorbidities per engine oiler, cardiology, nephrology, GI, infectious disease. More recommendations to follow. Thank you Dr. Cho for this consult, we will follow along with you. I have personally seen and examined the patient, performed the documentation and the assessment and plan as written. Number of minutes spent on the visit: 30. MARLIN Gupta
[2024-01-25 09:14] LABS: Platelet Count 85 k/uL (150-450)
[2024-01-25] MEDS: SODIUM CHLORIDE 0.45% 1,000 ML with SODIUM BICARB (1 MEQ/ML) 150 ML IV SCH (10:11)
[2024-01-25] MEDS: ONDANSETRON 4 MG/2 ML VIAL IVP STA (10:49)
--- NOTE | 2024-01-25 11:02 | P.PN ---
Subjective patient is seen for follow-up for hyponatremia. 3% saline was discontinued on 01/23/2024. Systolic blood pressure staying at 80-95 mmHg. Status post fluid bolus. Urine output remains at 5-10 mL an hour. Blood cultures remain positive for MRSA. vancomycin level XXXIV.5 yesterday patient is also maintained on bicarb drip and metabolic acidosis has worsened. serum sodium today is 125. Objective - Vital Signs Vital signs: Vital Signs Temp 98.0 F 01/25/24 10:30 Pulse 116 H 01/25/24 10:30 Resp 17 01/25/24 10:30 BP 96/62 01/25/24 10:30 Pulse Ox 98 01/25/24 10:30 FiO2 Intake & Output 01/24/24 01/25/24 01/25/24 18:59 06:59 18:59 Intake Total 2701.178 1359.188 468.25 Output Total 77 100 10 Balance 2624.178 1259.188 458.25 Weight 89.1 kg Intake: IV 180 1130 120 Sodium Chloride 0.45% 1, 550 100 000 ml @ 50 mls/hr IV . Q22H BRIDGETT with Sodium Bicarb (1 Meq/ml) 100 ml Rx#:[id number] Vancomycin 1,500 mg In 500 Sodium Chloride 0.9% 500 ml 500 ml @ 167 mls/hr IVPB Q12HR BRIDGETT Rx#: [id number] kvo 180 80 20 Intake, IV Titration 1331.178 229.188 29.25 Amount Albumin Human 25% 50 ml 50 In Empty Bag 1 bag @ 50 mls/hr IVPB ONCE ONE Rx#: [id number] Norepinephrine 32 mg In 55.607 29.25 Sodium Chloride 0.9% 250 ml @ 0.03 MCG/KG/MIN 1. 295 mls/hr IV .Q24H BRIDGETT Rx#:[id number] Norepinephrine 4 mg In 256.178 173.581 Sodium Chloride 0.9% 250 ml @ 0.03 MCG/KG/MIN 9. 332 mls/hr IV .Q24H BRIDGETT Rx#:[id number] Sodium Chloride 0.45% 1, 525 000 ml @ 50 mls/hr IV . Q22H BRIDGETT with Sodium Bicarb (1 Meq/ml) 100 ml Rx#:[id number] Vancomycin 1,500 mg In 500 Sodium Chloride 0.9% 500 ml 500 ml @ 167 mls/hr IVPB HS BRIDGETT Rx#:[id number] Oral 1190 Blood Product 319 Ffp 24 Cpd Unit 319 [id number] Ffp 24 Cpd Unit 0 [id number] Output: Urine 77 100 10 Other: Voiding Method Indwelling Catheter Indwelling Catheter Indwelling Catheter - Exam patient is awake, comfortable, no acute distress. Examination of the heart S1 and S2 Examination of the lungs bilateral breath sounds are heard Abdomen is soft nontender, ascites is noted Examination of lower extremity shows edema 2+ bilaterally - Labs CBC & Chem 7: 01/25/24 07:53 01/25/24 05:50 Labs: Abnormal Lab Results - Last 24 Hours (Table) 01/24/24 01/25/24 01/25/24 Range/Units 12:42 05:50 07:53 WBC 13.7 H (3.8-10.6) k/uL RBC 2.68 L (4.30-5.90) m/uL Hgb 8.5 L (13.0-17.5) gm/dL Hct 26.4 L (39.0-53.0) % RDW 16.6 H (11.5-15.5) % Plt Count 85 L (150-450) k/uL Neutrophils # 11.6 H (1.3-7.7) k/uL Lymphocytes # 0.3 L (1.0-4.8) k/uL Monocytes # 1.6 H (0-1.0) k/uL PT (10.0-12.5) sec INR (<1.2) APTT (22.0-30.0) sec Sodium 127 L 125 L (137-145) mmol/L Carbon Dioxide 12 L (22-30) mmol/L BUN 36 H (9-20) mg/dL Creatinine 1.61 H (0.66-1.25) mg/dL Glucose 100 H (74-99) mg/dL Calcium 7.7 L (8.4-10.2) mg/dL Total Bilirubin 3.3 H (0.2-1.3) mg/dL AST 109 H (17-59) U/L ALT 68 H (4-49) U/L Alkaline Phosphatase 136 H (38-126) U/L Total Protein 4.9 L (6.3-8.2) g/dL Albumin 2.3 L (3.5-5.0) g/dL 01/25/24 Range/Units 07:53 WBC (3.8-10.6) k/uL RBC (4.30-5.90) m/uL Hgb (13.0-17.5) gm/dL Hct (39.0-53.0) % RDW (11.5-15.5) % Plt Count (150-450) k/uL Neutrophils # (1.3-7.7) k/uL Lymphocytes # (1.0-4.8) k/uL Monocytes # (0-1.0) k/uL PT 21.5 H (10.0-12.5) sec INR 2.1 H (<1.2) APTT 36.3 H (22.0-30.0) sec Sodium (137-145) mmol/L Carbon Dioxide (22-30) mmol/L BUN (9-20) mg/dL Creatinine (0.66-1.25) mg/dL Glucose (74-99) mg/dL Calcium (8.4-10.2) mg/dL Total Bilirubin (0.2-1.3) mg/dL AST (17-59) U/L ALT (4-49) U/L Alkaline Phosphatase (38-126) U/L Total Protein (6.3-8.2) g/dL Albumin (3.5-5.0) g/dL Microbiology - Last 24 Hours (Table) 01/21/24 12:00 Gram Stain - Preliminary Ascites Fluid Body Fluid Culture - Preliminary 01/22/24 15:20 Blood Culture Gram Stain - Final Blood Blood Culture - Final Methicillin resist S. aureus 01/22/24 15:20 Blood Culture Gram Stain - Final Blood Blood Culture - Final Methicillin resist S. aureus 01/24/24 08:59 Blood Culture Gram Stain - Preliminary Blood 01/22/24 02:30 Urine Culture - Final Urine,Catheterized 01/21/24 11:20 Blood Culture Gram Stain - Final Blood Blood Culture - Final Methicillin resist S. aureus Molecular ID Assessment and Plan Assessment: 1. Hyponatremia associated with liver cirrhosis. Currently with significant edema. Status post 3% saline and received 1 dose of Samsca on 01/23/2024. Status post multiple fluid boluses for sepsis and hypotension. 2. Acute kidney injury, oliguric, ATN versus hepatorenal syndrome 3. Alcoholic liver cirrhosis 4. Non-gap metabolic acidosis secondary to acute kidney injury and hypoperfusion 5. Hyperkalemia associated with acute kidney injury, improved 6. Non-gap metabolic acidosis associated with acute kidney injury 7. MRSA bacteremia 8. Large pericardial effusion Plan: continue bicarb drip. Change composition to D5 W with 3 A as patient needs more aggressive treatment of his metabolic acidosis. Increase oral sodium bicarb. Avoid Lasix. Agree with surgical evaluation of large pericardial effusion. Patient will likely need to start dialysis if renal function continues to worsen or if metabolic acidosis is not improved. Continue Sandostatin recommend discontinuation of vancomycin and switching to daptomycin due to acute kidney injury. Level was 34.5 yesterday.
--- NOTE | 2024-01-25 11:59 | P.PN ---
Subjective Progress Note Date: 01/25/24 Patient is a 63-year-old male with past medical history significant for liver cirrhosis, abdominal ascites with weekly paracentesis, pancreatitis, alcoholism, among other things. Of note, patient had a recent hospitalization August 2023 where he was weak and confused and found to have severe hyponatremia. He did require 3% sodium infusion and brief ICU admission at that time. Patient sent in from [facility] last night. Reportedly, had multiple falls over the past couple days. Last night, he was found on the ground. Patient reports that he may have been on the ground for 2 to 3 hours. States that his legs just gave out. Denies losing consciousness. Denies losing hitting his head. States he landed on his right shoulder, which is a little sore. No limitation in motion or obvious trauma. skin tears noted bilateral upper extremitites. He does appear to be in a positive fluid balance. Does take Lasix, Aldactone, and salt tablets on outpatient basis. Also, undergoes weekly paracentesis by IR, and his next paracentesis is scheduled for tomorrow. His abdomen is full and distended. Nontender. He has severe bilateral lower extremity edema. On arrival to the emergency department he was noted to be hypotensive, has missed all 3 of his doses of midodrine yesterday. CBC: WBC count 15.9, hemoglobin 9.5, hematocrit 29.7, platelets 155. Coagulation profile includes a PT of 15.7, INR of 1.5, APTT 33.6. CMP on arrival: Sodium 113, potassium 5.1, chloride 92, serum bicarb 13, BUN 18, creatinine 0.99, glucose 114. LFTs unremarkable. Urinalysis showing moderate leukocytes and occasional bacteria. Patient denies any troubles or difficulty urinating, no dysuria, no fevers, flank pain, hematuria. No polyuria or excessive water intake. No notable fluid losses. Generalized weakness and falls are chief symptoms. No confusion, seizures, coma. Hypothyroidism and adrenal insufficiency previously ruled out. Nephrology has been consulted, is requesting this patient be monitored in the intensive care unit in case he needs 3% hypertonic saline. Most recent sodium is 112, however, the Lasix is still not been given due to hypotension. On 01/22/2024, patient is being seen for a follow-up. Awake and alert. No significant respiratory distress. The patient is currently on room air oxygen with a pulse ox of 98%. Abdominal paracentesis was done yesterday and the fluid was negative for infection. Culture still pending. Earlier this morning, the patient is on hypertonic saline 3% which is running at 20 cc an hour. Sodium level was 116 and subsequently upon 918. He has 1.07. The patient has a serum bicarb of 14. Patient will be given IV bicarb 100 mL equivalents total IV and she will be started on oral bicarb supplements. Urine output is in order of 10 cc an hour. Blood culture was positive for MRSA. Rocephin was discontinued and the patient was started on vancomycin. The patient is also on midodrine. The patient is on octreotide. 01/23/2024, the patient is being seen for a follow-up. The patient is awake and alert and the patient remains on room air oxygen. He did have staff aureus bacteremia the patient is currently on vancomycin. He remains hypotensive and the patient is currently on low-dose norepinephrine which is running at 0.08 mcg/kg/min. The patient remains on hypertonic saline 3% running at 20 cc an hour and the patient's sodium level is at 121. He does have some ascites. Urine output is in order of 20 cc an hour. White cell count of 22.9 with a hemoglobin 9.2. No evidence of any GI bleeding. No evidence of any encephalopathy. BUN is 27 with a creatinine of 1.1 and a potassium of is at 4.5. Remains on IV Rocephin and vancomycin. Remains on midodrine. Remains on pressors. Remains on octreotide. On 01/24/2024, the patient remains, comfortable on room air oxygen. He remains hypotensive as the patient was septic and the blood cultures positive for gram- positive cocci in clusters suggestive of MRSA and the patient remains on vancomycin. The patient currently is on norepinephrine which is running at 0.08 mcg/kg/min. Hypertonic saline was discontinued and the patient is currently on KVO IV fluids. Echocardiogram showed a ejection fraction of 50 to 55%. Large pericardial effusion without tamponade physiology. No clear indication for any vegetation at this point in time based on the routine transthoracic e chocardiogram. The white cell count of 13.6, hemoglobin is at 9 and a platelet count is 101. Sodium is at 122, BUN is 32 with a creatinine of 1.38, AST is 132, ALT 75 and alkaline phosphatase 122. Vancomycin trough is 34.5. Blood sugar is at 127. Repeat blood cultures will be obtained for today. No significant encephalopathy. No respiratory distress. He does have abdominal ascites with a large abdominal wall hernia also noted/umbilical hernia. On 01/25/2024, the patient is being seen for a follow-up. The patient is slightly confused on today's evaluation and urine output is low. He remains hypotensive on pressors and the patient is currently on norepinephrine running at the lower dose to support his blood pressure. Repeat blood cultures still positive for MRSA/gram-positive cocci and the patient remains on vancomycin. As noted, he has a large pericardial effusion without any tamponade. Cardiology and cardiothoracic surgery on the case. The patient will likely need a ady cardiocentesis today. Meanwhile, no major edema lower extremities. Urine output is low. Is developed progressive worsening renal function the creatinine is up to 1.6. BUN 36. Sodium levels at 125. Bicarb level is down to 12. He remains on a bicarb infusion with half-normal saline and a total of 100 mEq of sodium bicarb. The white cell count of 13.7. Hemoglobin 8.5 and a platelet count of 85. proBNP level is 38,000. Vancomycin trough from yesterday was 24.5. He remains on room air oxygen. Objective - Vital Signs Vital signs: Vital Signs Temp 97.9 F 01/25/24 11:02 Pulse 129 H 01/25/24 11:02 Resp 20 01/25/24 11:02 BP 93/69 01/25/24 11:02 Pulse Ox 97 01/25/24 11:02 FiO2 Intake & Output 01/24/24 01/25/24 01/25/24 18:59 06:59 18:59 Intake Total 2701.178 5431.287 6509.25 Output Total 77 100 15 Balance 2624.178 4308.605 3548.25 Weight 89.1 kg Intake: IV 180 1130 120 Sodium Chloride 0.45% 1, 550 100 000 ml @ 50 mls/hr IV . Q22H BRIDGETT with Sodium Bicarb (1 Meq/ml) 100 ml Rx#:[id number] Vancomycin 1,500 mg In 500 Sodium Chloride 0.9% 500 ml 500 ml @ 167 mls/hr IVPB Q12HR BRIDGETT Rx#: [id number] kvo 180 80 20 Intake, IV Titration 1331.178 229.188 229.25 Amount Albumin Human 25% 50 ml 50 In Empty Bag 1 bag @ 50 mls/hr IVPB ONCE ONE Rx#: [id number] Norepinephrine 32 mg In 55.607 29.25 Sodium Chloride 0.9% 250 ml @ 0.03 MCG/KG/MIN 1. 295 mls/hr IV .Q24H BRIDGETT Rx#:[id number] Norepinephrine 4 mg In 256.178 173.581 Sodium Chloride 0.9% 250 ml @ 0.03 MCG/KG/MIN 9. 332 mls/hr IV .Q24H BRIDGETT Rx#:[id number] Sodium Chloride 0.45% 1, 200 000 ml @ 100 mls/hr IV . [id number] BRIDGETT with Sodium Bicarb (1 Meq/ml) 150 ml Rx#:[id number] Sodium Chloride 0.45% 1, 525 000 ml @ 50 mls/hr IV . Q22H BRIDGETT with Sodium Bicarb (1 Meq/ml) 100 ml Rx#:[id number] Vancomycin 1,500 mg In 500 Sodium Chloride 0.9% 500 ml 500 ml @ 167 mls/hr IVPB HS BRIDGETT Rx#:[id number] Oral 1190 0 Blood Product 948 Ffp 24 Cpd Unit 319 [id number] Ffp 24 Cpd Unit 0 [id number] Output: Urine 77 100 15 Other: Voiding Method Indwelling Catheter Indwelling Catheter Indwelling Catheter - Exam GENERAL EXAM: Alert, 63-year-old white male, being evaluated in the emergency department. Abdomen is full with ascites. Comfortable in no apparent distress. HEAD: Normocephalic and atraumatic EYES: Normal reaction of pupils, equal size. NOSE: Clear with pink turbinates. THROAT: No erythema or exudates. NECK: No masses, no JVD. CHEST: No chest wall deformity. LUNGS: Equal air entry with no crackles, wheeze, rhonchi or dullness. On room air. No conversational dyspnea or accessory muscle use.. CVS: S1 and S2 normal with no audible murmur, regular rhythm. No extra heart sounds ABDOMEN: Abdomen is rounded distended, active bowel sounds, no hepatosplenomegaly, no guarding or rigidity. Large umbilical hernia SPINE: No scoliosis or deformity SKIN: No rashes. Bilateral upper extremity skin tears. CENTRAL NERVOUS SYSTEM: No focal deficits, tone is normal in all 4 extremities. EXTREMITIES: There is bilateral 3+ lower extremity edema. No clubbing, or cyanosis. Peripheral pulses are intact. - Labs CBC & Chem 7: 01/25/24 07:53 01/25/24 05:50 Labs: Abnormal Lab Results - Last 24 Hours (Table) 01/24/24 01/25/24 01/25/24 Range/Units 12:42 05:50 07:53 WBC 13.7 H (3.8-10.6) k/uL RBC 2.68 L (4.30-5.90) m/uL Hgb 8.5 L (13.0-17.5) gm/dL Hct 26.4 L (39.0-53.0) % RDW 16.6 H (11.5-15.5) % Plt Count 85 L (150-450) k/uL Neutrophils # 11.6 H (1.3-7.7) k/uL Lymphocytes # 0.3 L (1.0-4.8) k/uL Monocytes # 1.6 H (0-1.0) k/uL PT (10.0-12.5) sec INR (<1.2) APTT (22.0-30.0) sec Sodium 127 L 125 L (137-145) mmol/L Carbon Dioxide 12 L (22-30) mmol/L BUN 36 H (9-20) mg/dL Creatinine 1.61 H (0.66-1.25) mg/dL Glucose 100 H (74-99) mg/dL Calcium 7.7 L (8.4-10.2) mg/dL Total Bilirubin 3.3 H (0.2-1.3) mg/dL AST 109 H (17-59) U/L ALT 68 H (4-49) U/L Alkaline Phosphatase 136 H (38-126) U/L Total Protein 4.9 L (6.3-8.2) g/dL Albumin 2.3 L (3.5-5.0) g/dL 01/25/24 Range/Units 07:53 WBC (3.8-10.6) k/uL RBC (4.30-5.90) m/uL Hgb (13.0-17.5) gm/dL Hct (39.0-53.0) % RDW (11.5-15.5) % Plt Count (150-450) k/uL Neutrophils # (1.3-7.7) k/uL Lymphocytes # (1.0-4.8) k/uL Monocytes # (0-1.0) k/uL PT 21.5 H (10.0-12.5) sec INR 2.1 H (<1.2) APTT 36.3 H (22.0-30.0) sec Sodium (137-145) mmol/L Carbon Dioxide (22-30) mmol/L BUN (9-20) mg/dL Creatinine (0.66-1.25) mg/dL Glucose (74-99) mg/dL Calcium (8.4-10.2) mg/dL Total Bilirubin (0.2-1.3) mg/dL AST (17-59) U/L ALT (4-49) U/L Alkaline Phosphatase (38-126) U/L Total Protein (6.3-8.2) g/dL Albumin (3.5-5.0) g/dL Microbiology - Last 24 Hours (Table) 01/21/24 12:00 Gram Stain - Preliminary Ascites Fluid Body Fluid Culture - Preliminary 01/22/24 15:20 Blood Culture Gram Stain - Final Blood Blood Culture - Final Methicillin resist S. aureus 01/22/24 15:20 Blood Culture Gram Stain - Final Blood Blood Culture - Final Methicillin resist S. aureus 01/24/24 08:59 Blood Culture Gram Stain - Preliminary Blood 01/22/24 02:30 Urine Culture - Final Urine,Catheterized 01/21/24 11:20 Blood Culture Gram Stain - Final Blood Blood Culture - Final Methicillin resist S. aureus Molecular ID Assessment and Plan Assessment: Septic shock secondary to Staph aureus/MRSA. The patient continues to have persistent bacteremia. Rule out endovascular infection. Rule out endocarditis. Transthoracic echocardiogram shows no evidence of any vegetation. Hypotension, rule out septic in nature as the patient blood cultures positive for staph, rule out underlying MRSA. Exact source of infection is not clear. As the fluid was drained and there is no evidence of SBP. The patient is currently on a combination of Rocephin and vancomycin. Transthoracic echocardiogram shows no evidence of any valvular vegetations. The patient remains on low-dose pressors. Severe hyponatremia, the patient's sodium level is stable and the patient is off hypertonic saline, sodium level is stable for now. Liver cirrhosis with abdominal ascites and weekly paracentesis, last paracentesis was done 01/21/2020 for a total of 3 to 4 L of fluid was aspirated. Coagulopathy, secondary to above Acute leukocytosis, no obvious infectious process, improving Non-anion gap metabolic acidosis, currently on bicarb infusion Anemia of chronic disease, no overt signs of bleeding History of pancreatitis History of alcoholism Frequent falls Pericardial effusion without any tamponade physiology. Ejection fraction is preserved with an EF of around 50 to 55%. Plan: Remains on room air oxygen Limited confusion on today's evaluation. Will check an ammonia level. Patient will be weaned off pressors if possible May require NICOLE and this will be discussed Continue Rocephin and vancomycin Repeat blood cultures are still positive for gram-positive cocci in clusters Utilize a total of 150 mEq of sodium bicarb at a rate of 100 cc an hour Pericardiocentesis today, and the patient will be receiving a total of units of fresh frozen plasma Midodrine to be continued Nephrology on the case Cardiology and cardiothoracic surgery is on the case. Will continue to follow, critical care evaluation was done more than 30 minutes. Case was discussed with various consultants. Time with Patient: Greater than 30
--- NOTE | 2024-01-25 12:27 | P.OP ---
Date of Procedure: 01/25/24 Preoperative Diagnosis: Large pericardial effusion, ascites, liver failure Postoperative Diagnosis: same Procedure(s) Performed: Echo guided pericardial drain insertion Implants: central line triple lumen Anesthesia: local Surgeon: Randee Danielson Estimated Blood Loss (ml): 0 IV fluids (ml): 0 Pathology: none sent Condition: stable Disposition: ICU Indications for Procedure: LARGE PERICARDIAL EFFUSION, HYPOTENSION ON PRESSORS,. LIVER FAILURE Operative Findings: 480 CC SEROSANGUINOUS PERICARDIAL FLUID Description of Procedure: Local anesthesia 4cc lidocaine 1%. Site marked by echo. 4th ICS mid-axillary line, seldinger technique, wire than triple lumen inserted after dilating tract.A total of 470 cc of serosanguinous fluid aspirated. Catheter affixed with silk 2/0 to skin. Proximal port connected to pleurovac. Patient tolerated procedure well. echo post procedure showed trivial effusion.
[2024-01-25] MEDS: SODIUM BICARBONATE TAB 650 MG TAB PO SCH (12:41)
[2024-01-25] MEDS: DEXTROSE 5% IN WATER 1,000 ML with SODIUM BICARB (1 MEQ/ML) 150 ML IV SCH (13:15)
--- NOTE | 2024-01-25 13:46 | P.PN ---
Subjective Progress Note Date: 01/25/24 HISTORY OF PRESENT ILLNESS: This is a 63 year old male with a previous medical history significant for hypertension and hypertensive cardiovascular disease, hyperlipidemia, history of pancreatitis in the past along with prior history of sepsis due to cellulitis about 2 year ago, history of chronic alcoholic hepatitis with alcoholic liver cirrhosis for which he has been following with Dr. Smith as an outpatient and has been getting a weekly paracentesis at [facility] every Friday, patient was recently hospitalized at [facility] from two 01/05 2024 for significant hyponatremia with a sodium level as low as 118, patient was treated with fluid restriction as well as salt tablets, and he was treated with IV diuretics in the form of Lasix and spironolactone, his sodium got as good as 123, I believe the patient does have reset osmostat at this point in time, and he has a new baseline at around 04/29/2024, patient was brought into the emergency department at [facility] this time because of recurrent falls over the last few weeks with increased falls 3 times, he fell against his right shoulder, he has limited range of motion of the right shoulder, patient has minimal bruises in the right knee, he has significant bruising in the left hip, he does appear to have edema in the abdomen as well as the upper thigh, he does not appear to have a significant edema both lower extremities, initially was started on Lasix 40 mg IV push every 12 hours, and the patient was having good urine output, his sodium went up to 115, then the patient sodium went down to 114 after he was given 60 cc of 3% hypertonic solution, therefore he was taken off that after nephrology seen the patient, and he was started on normal saline 1 L over the next hour, recheck his sodium level at 330, he was also started on Sandostatin 100 mcg IV push every 8 hours for hepatorenal syndrome, patient was admitted to the hospital he was also found to have a significant leukocytosis he was started on ceftriaxone, he had paracentesis in the ICU and his fluid were sent for cell count and differential rule out spontaneous bacterial peritonitis patient does not appear to have any fever or chills at this time he does not have any fever at this point in time either. 01/21: Patient is laying down in bed he appears to be very weak, he is in atrial fibrillation with heart rate is around 116, patient has no chest pain, he appears to be somewhat short of breath, he has been on fluid restriction, he is asking to reduce his fluid restriction to 1500 cc in a 24 hours, will continue to follow-up with the patient very closely, will obtain cardiology consultation, patient continues to have significant pain in his shoulders, he was started on morphine 2 mg IV push every 4 hours as needed for pain control, we will continue to follow-up the patient in the intensive care unit, monitor input and output and daily weight, blood cultures are positive for methicillin-resistant Staphylococcus aureus, patient was started on IV antibiotic in the form of vancomycin pharmacy to dose his peak and trough, continue ceftriaxone 1 g every back every 24 hours, patient continues to have leukocytosis, we will monitor the patient very closely. Infectious disease consultation will be obtained. 01/22: Patient sitting up in bed in no apparent distress, he is more awake and more alert today, his sodium is at 125, we will discontinue hypertonic saline 3%, continue patient on sodium bicarbonate tablet 650 mg orally twice every day, monitor the patient CMP over the next 24 hours, continue fluid restriction 1500 cc, continue IV antibiotic in the form of vancomycin and Rocephin, consult infectious disease Dr. Randle, patient has been followed by pulmonary medicine as well as nephrology, will continue to follow-up with the patient very closely patient was seen in consultation by cardiology, he was started on metoprolol 12.5 mg orally 3 times every day, will continue rate control, patient is not a candidate for anticoagulation due to his increased risk of bleeding. Echocardiogram showed ejection fraction of 55%, with moderate mitral regurgitation and aortic regurgitation with a large pericardial effusion without evidence of tamponade cardiology is following. 01/23: Patient sitting up in the bed that he appears to be somewhat short of breath, he continues to be in the fluid restriction, his last sodium is 127, he was started on sodium bicarbonate drip by nephrology, he did receive 1 dose of Lasix and his urine output is very low, patient appears to be edematous at this time, he does appear to have a significant pericardial effusion, will consult cardiothoracic surgery for possible pericardiocentesis, patient also will be started on Lasix 80 mg IV push every 12 hours, continue Levophed drip at this time, monitor the patient very closely, patient appears to be critical at this p oint in time, I spoke with the patient about his current prognosis and he continues to be full code for now. 01/24: Patient is laying down in bed in mild respiratory distress, his daughter was at the bedside, patient was seen in consultation by thoracic surgery he went for pericardiocentesis by Dr. Danielson with 450 cc of serosanguineous fluid and echo showed evidence of trivial fluid around the heart at this time, patient blood pressure did not recover from this at this point in time he continues to be hypotensive, he continued to be on Levophed, I had a long conversation with patient as well as nephrology today, the patient appears to be quite acidotic at this time, he was started on sodium bicarbonate drip at 100 cc an hour, he is not making any urine at this time about 10 cc an hour, if the patient is not improving over the next 24 hours he will need to be started on hemodialysis robert use the patient acidotic as well as not making any urine at this time he became oliguric at this point in time due to hepatorenal syndrome. Patient is aware of the prognosis continues to be very guarded at this time, we will follow-up with the patient very closely, patient continues to be bacteremic at this time with MRSA, infectious disease is following, patient may need to have a transesophagea l echocardiogram for evaluation of possible endocarditis. REVIEW OF SYSTEMS: Constitutional: No documented fever, no chills, no night sweats. No weight change. positive for weakness, positive for fatigue or lethargy. No daytime sleepiness. HEENT: No headache. No blurred vision or double vision, no loss of vision. No loss of Hearing, no ringing in the ears, no dizziness. No nasal drainage or congestion. No epistaxis. No sore throat. Lungs: positive for shortness of breath, occasional cough, no sputum production. positive for wheezing. Reports dyspnea with activity. Cardiovascular: No chest pain, positive for lower extremity edema. No palpitations. No paroxysmal nocturnal dyspnea. No orthopnea. No lightheadedness or dizziness. No syncopal episodes. Abdominal: Reports no abdominal pain. No nausea, vomiting. no diarrhea. No constipation. No bloody or tarry stools reports loss of appetite. Genitourinary: No dysuria, increased frequency, urgency. No urinary retention. Musculoskeletal: No myalgias. positive for muscle weakness, no gait dysfunction, positive for frequent falls. No back pain. No neck pain. Integumentary: No wounds, no lesions. No rash or pruritus. Positive for unusual bruising. No change in hair or nails. Positive for ecchymosis of the right knee. Neurologic: No aphasia. No facial droop. No change in mentation. No head injury. No headache. No paralysis. No paresthesia. Psychiatric: positive for depression. positive for anxiety. No mood swings. Endocrine: No abnormal blood sugars. No weight change. PHYSICAL EXAMINATION: General: 63-year-old male is sitting up in bed in mild respiratory distress HEENT: Head is atraumatic, normocephalic, pupils were equal round reactive to light and recommendation, extraocular muscle movement were intact, sclera are deeply icteric, conjunctivae were pale, mucous membranes of the mouth are somewhat dry. Neck: Supple, positive for JVP, normal carotid upstroke bilaterally, no lymp hadenopathy. Chest: Decreased breath sounds at the bases, few rhonchi, positive for expiratory wheezes, no chest wall tenderness, positive for mild intercostal retractions. Heart: First heart sound is normal, second heart sound is normal there is BLANCA 2/6 located at the left sternal border, irregular due to atrial fibrillation there is a pleural VAC in place. Abdomen: Soft, distended moderate ascites, no tenderness, positive bowel sounds. Extremities: There is +2 edema no calf tenderness DP +2 bilaterally. Neurologic examination: Patient is awake alert and oriented X 3, cranial nerves II-12 appear grossly intact, muscle power were 4 out of 5 in upper extremities and 3 out of 5 in bilateral lower extremities, deep tendon reflexes normal bilaterally. ASSESSMENT AND PLAN: 1. 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 patient is back on sodium chloride tablet 1 g orally twice every day fluid restriction 1500 cc, sodium has been stable at 125. 2. MRSA bacteremia. Continue patient on IV antibiotic in the form of vancomycin with pharmacy to dose his peak and trough, continue ceftriaxone 1 g piggyback every 24 hours, infectious disease consultation Dr. Randle. Diaz ppreciated. 3. Atrial fibrillation patient is not a candidate for anticoagulation at this point in time, continue patient on metoprolol 12.5 mg orally 3 times every day, cardiology consultation appreciated. 4. Acute kidney injury due to acute tubular necrosis and vasomotor nephropathy patient has become oliguric with significant acidosis currently on sodium bicarbonate drip at 100 cc an hour, if the patient is not improving he will need to go for dialysis in the next 24 hours. 5. Hyperkalemia due to acute kidney injury due to ATN and the use of spironolactone. Resolved. 6. None anion gap metabolic acidosis. Patient was started on sodium bicarbonate drip. Patient likely will go into dialysis if there is no improvement over the next 24 hours. Because he becomes oliguric due to hepatorenal syndrome. 7. Chronic liver cirrhosis with recurrence ascites. Status post weekly parace ntesis. He just had last Friday. Fluid did not show evidence of any WBC no evidence of spontaneous bacterial peritonitis. 8. Hepatorenal syndrome. Continue patient on Sandostatin 100 mcg IV push every 8 hours. Patient will likely go on dialysis in the next 24 hours if there is no improvement of his acidosis and and his fluid status. 9. GERD. Continue patient on Protonix 40 mg orally once every day. 10. DVT prophylaxis. Bilateral knee-high TAMI hose. 11. Orthostatic hypotension continue patient on midodrine 10 mg orally 3 times every day. 12. Right shoulder pain likely related to rotator cuff tear continue current pain management for now. 13. Medical debility due to underlying liver cirrhosis physical therapy evaluation. 14. Large pericardial effusion without evidence of tamponade. Status post pericardiocentesis that was done by cardiothoracic surgery. 15. Overall prognosis very guarded. 16. Patient is full code. Objective - Vital Signs Vital signs: Vital Signs Temp 98.0 F 01/25/24 12:00 Pulse 112 H 01/25/24 13:15 Resp 14 01/25/24 13:15 BP 86/47 01/25/24 13:15 Pulse Ox 92 L 01/25/24 13:15 FiO2 Intake & Output 01/24/24 01/25/24 01/25/24 18:59 06:59 18:59 Intake Total 2701.178 3118.332 7872.25 Output Total 77 100 520 Balance 2624.178 7348.348 9838.25 Weight 89.1 kg Intake: IV 180 1130 120 Sodium Chloride 0.45% 1, 550 100 000 ml @ 50 mls/hr IV . Q22H BRIDGETT with Sodium Bicarb (1 Meq/ml) 100 ml Rx#:[id number] Vancomycin 1,500 mg In 500 Sodium Chloride 0.9% 500 ml 500 ml @ 167 mls/hr IVPB Q12HR BRIDGETT Rx#: [id number] kvo 180 80 20 Intake, IV Titration 1331.178 229.188 429.25 Amount Albumin Human 25% 50 ml 50 In Empty Bag 1 bag @ 50 mls/hr IVPB ONCE ONE Rx#: [id number] Dextrose 5% in Water 1, 200 000 ml @ 100 mls/hr IV . [id number] BRIDGETT with Sodium Bicarb (1 Meq/ml) 150 ml Rx#:[id number] Norepinephrine 32 mg In 55.607 29.25 Sodium Chloride 0.9% 250 ml @ 0.03 MCG/KG/MIN 1. 295 mls/hr IV .Q24H BRIDGETT Rx#:[id number] Norepinephrine 4 mg In 256.178 173.581 Sodium Chloride 0.9% 250 ml @ 0.03 MCG/KG/MIN 9. 332 mls/hr IV .Q24H BRIDGETT Rx#:[id number] Sodium Chloride 0.45% 1, 200 000 ml @ 100 mls/hr IV . [id number] BRIDGETT with Sodium Bicarb (1 Meq/ml) 150 ml Rx#:[id number] Sodium Chloride 0.45% 1, 525 000 ml @ 50 mls/hr IV . Q22H BRIDGETT with Sodium Bicarb (1 Meq/ml) 100 ml Rx#:[id number] Vancomycin 1,500 mg In 500 Sodium Chloride 0.9% 500 ml 500 ml @ 167 mls/hr IVPB HS BRIDGETT Rx#:[id number] Oral 1190 50 Blood Product 948 Ffp 24 Cpd Unit 319 [id number] Ffp 24 Cpd Unit 0 [id number] Output: Chest Tube Drainage 500 Chest Tube Left Lateral 500 Chest Urine 77 100 20 Other: Voiding Method Indwelling Catheter Indwelling Catheter Indwelling Catheter - Labs CBC & Chem 7: 01/25/24 07:53 01/25/24 05:50 Labs: Abnormal Lab Results - Last 24 Hours (Table) 01/25/24 01/25/24 01/25/24 Range/Units 05:50 07:53 07:53 WBC 13.7 H (3.8-10.6) k/uL RBC 2.68 L (4.30-5.90) m/uL Hgb 8.5 L (13.0-17.5) gm/dL Hct 26.4 L (39.0-53.0) % RDW 16.6 H (11.5-15.5) % Plt Count 85 L (150-450) k/uL Neutrophils # 11.6 H (1.3-7.7) k/uL Lymphocytes # 0.3 L (1.0-4.8) k/uL Monocytes # 1.6 H (0-1.0) k/uL PT 21.5 H (10.0-12.5) sec INR 2.1 H (<1.2) APTT 36.3 H (22.0-30.0) sec Sodium 125 L (137-145) mmol/L Carbon Dioxide 12 L (22-30) mmol/L BUN 36 H (9-20) mg/dL Creatinine 1.61 H (0.66-1.25) mg/dL Glucose 100 H (74-99) mg/dL Calcium 7.7 L (8.4-10.2) mg/dL Total Bilirubin 3.3 H (0.2-1.3) mg/dL AST 109 H (17-59) U/L ALT 68 H (4-49) U/L Alkaline Phosphatase 136 H (38-126) U/L Total Protein 4.9 L (6.3-8.2) g/dL Albumin 2.3 L (3.5-5.0) g/dL Microbiology - Last 24 Hours (Table) 01/21/24 12:00 Gram Stain - Preliminary Ascites Fluid Body Fluid Culture - Preliminary 01/22/24 15:20 Blood Culture Gram Stain - Final Blood Blood Culture - Final Methicillin resist S. aureus 01/22/24 15:20 Blood Culture Gram Stain - Final Blood Blood Culture - Final Methicillin resist S. aureus 01/24/24 08:59 Blood Culture Gram Stain - Preliminary Blood
[2024-01-25 15:08] LABS: Potassium 4.4 mmol/L (3.5-5.1)
--- NOTE | 2024-01-25 21:11 | P.PN ---
Subjective Progress Note Date: 01/25/24 Principal diagnosis: Reason for follow-up is MRSA bacteremia Patient is a 63-year-old male with a past medical history significant for hypertension, cirrhosis of the liver pancreatitis pneumonia patient was admitted to the hospital for frequent falls and low sodium also have MRSA bacteremia probably this consultation echocardiogram did shows large pericardial effusion and the patient is status post pericardial window completed on 01/25/2024. On today's evaluation that is 01/25/2024, the patient continues to be afebrile, the patient is on room air and breathing comfortably, the Pt denies having any chest pain or cough, the patient denies having any abdominal pain no vomiting or any diarrhea. Patient white count is 13.7 creatinine is 1.61 Vanco trough was 34.5 blood culture repeated positive Objective - Vital Signs Vital signs: Vital Signs Temp 98.0 F 01/25/24 12:00 Pulse 112 H 01/25/24 13:15 Resp 14 01/25/24 13:15 BP 86/47 01/25/24 13:15 Pulse Ox 92 L 01/25/24 13:15 FiO2 Intake & Output 01/24/24 01/25/24 01/25/24 18:59 06:59 18:59 Intake Total 2701.178 1102.744 4251.25 Output Total 77 100 520 Balance 2624.178 2564.743 5607.25 Weight 89.1 kg Intake: IV 180 1130 120 Sodium Chloride 0.45% 1, 550 100 000 ml @ 50 mls/hr IV . Q22H BRIDGETT with Sodium Bicarb (1 Meq/ml) 100 ml Rx#:[id number] Vancomycin 1,500 mg In 500 Sodium Chloride 0.9% 500 ml 500 ml @ 167 mls/hr IVPB Q12HR BR[facility]GETT Rx#: [id number] kvo 180 80 20 Intake, IV Titration 1331.178 229.188 429.25 Amount Albumin Human 25% 50 ml 50 In Empty Bag 1 bag @ 50 mls/hr IVPB ONCE ONE Rx#: [id number] Dextrose 5% in Water 1, 200 000 ml @ 100 mls/hr IV . [id number] BRIDGETT with Sodium Bicarb (1 Meq/ml) 150 ml Rx#:[id number] Norepinephrine 32 mg In 55.607 29.25 Sodium Chloride 0.9% 250 ml @ 0.03 MCG/KG/MIN 1. 295 mls/hr IV .Q24H [facility]GETT Rx#:[id number] Norepinephrine 4 mg In 256.178 173.581 Sodium Chloride 0.9% 250 ml @ 0.03 MCG/KG/MIN 9. 332 mls/hr IV .Q24H [facility]GETT Rx#:[id number] Sodium Chloride 0.45% 1, 200 000 ml @ 100 mls/hr IV . [id number] BRIDGETT with Sodium Bicarb (1 Meq/ml) 150 ml Rx#:[id number] Sodium Chloride 0.45% 1, 525 000 ml @ 50 mls/hr IV . Q22H [facility]GETT with Sodium Bicarb (1 Meq/ml) 100 ml Rx#:[id number] Vancomycin 1,500 mg In 500 Sodium Chloride 0.9% 500 ml 500 ml @ 167 mls/hr IVPB HS BRIDGETT Rx#:[id number] Oral 1190 50 Blood Product 948 Ffp 24 Cpd Unit 319 [id number] Ffp 24 Cpd Unit 0 [id number] Output: Chest Tube Drainage 500 Chest Tube Left Lateral 500 Chest Urine 77 100 20 Other: Voiding Method Indwelling Catheter Indwelling Catheter Indwelling Catheter - Exam GENERAL DESCRIPTION: An elderly male lying in bed in no distress RESPIRATORY SYSTEM: Unlabored breathing , decreased breath sounds at bases HEART: S1 S2 regular rate and rhythm , ABDOMEN: Soft , no tenderness EXTREMITIES: No edema feet - Labs CBC & Chem 7: 01/25/24 07:53 01/25/24 14:17 Labs: Abnormal Lab Results - Last 24 Hours (Table) 01/25/24 01/25/24 01/25/24 Range/Units 05:50 07:53 07:53 WBC 13.7 H (3.8-10.6) k/uL RBC 2.68 L (4.30-5.90) m/uL Hgb 8.5 L (13.0-17.5) gm/dL Hct 26.4 L (39.0-53.0) % RDW 16.6 H (11.5-15.5) % Plt Count 85 L (150-450) k/uL Neutrophils # 11.6 H (1.3-7.7) k/uL Lymphocytes # 0.3 L (1.0-4.8) k/uL Monocytes # 1.6 H (0-1.0) k/uL PT 21.5 H (10.0-12.5) sec INR 2.1 H (<1.2) APTT 36.3 H (22.0-30.0) sec Sodium 125 L (137-145) mmol/L Carbon Dioxide 12 L (22-30) mmol/L BUN 36 H (9-20) mg/dL Creatinine 1.61 H (0.66-1.25) mg/dL Glucose 100 H (74-99) mg/dL Calcium 7.7 L (8.4-10.2) mg/dL Total Bilirubin 3.3 H (0.2-1.3) mg/dL AST 109 H (17-59) U/L ALT 68 H (4-49) U/L Alkaline Phosphatase 136 H (38-126) U/L Total Protein 4.9 L (6.3-8.2) g/dL Albumin 2.3 L (3.5-5.0) g/dL Microbiology - Last 24 Hours (Table) 01/21/24 12:00 Gram Stain - Preliminary Ascites Fluid Body Fluid Culture - Preliminary 01/22/24 15:20 Blood Culture Gram Stain - Final Blood Blood Culture - Final Methicillin resist S. aureus 01/22/24 15:20 Blood Culture Gram Stain - Final Blood Blood Culture - Final Methicillin resist S. aureus 01/24/24 08:59 Blood Culture Gram Stain - Preliminary Blood Assessment and Plan (1) MRSA bacteremia Current Visit: Yes Status: Acute Code(s): R78.81 - BACTEREMIA; B95.62 - METHICILLIN RESIS STAPH INFCT CAUSING DISEASES CLASSD [id number] SNOMED Code(s): 77656107276548843 (2) Leukocytosis Current Visit: Yes Status: Acute Code(s): D72.829 - ELEVATED WHITE BLOOD CELL COUNT, UNSPECIFIED SNOMED Code(s): 840776809 (3) Skin tear Current Visit: Yes Status: Acute Code(s): YKQ6015 - SNOMED Code(s): 956058225 Plan: 1patient with MRSA bacteremia in this patient presented to the hospital with fall did have some skin maceration noticed to have significant hyponatremia however patient did not have any fever during this admission did have elevated white count of chest x-ray was negative urine is positive however urine cultures came back negative source of this bacteremia is likely skin and soft tissue however if any persistent bacteremia will need to rule out endovascular source he already has the echocardiogram did not show any vegetation and large effusion but no tamponade phenomena 2-blood culture repeat after coming back positive patient is status post pericardial window unfortunately no cultures were done 3-with elevated Vanco trough and high risk of nephrotoxicity we will discontinue vancomycin and start the patient on daptomycin Dictation was produced using [employer] dictation software. please excuse any grammatical, word or spelling errors. Time with Patient: Less than 30
--- NOTE | 2024-01-25 23:23 | P.PN ---
Subjective Progress Note Date: 01/25/24 SUBJECTIVE: Because of increasing pressor support requirement along with continuation of having low blood pressure CT surgery was consulted by primary rounding team. CT surgery performed a pericardiocentesis with removal of 470 cc serosanguineous fluid. Blood pressure following still appearing to be low with systolic around 80s to 90s mmHg. Requiring pressors. PHYSICAL EXAMINATION Vital signs reviewed. Head: Normocephalic. Eyes: Sclerae nonicteric. Neck: Brisk carotid upstroke, no jugular venous distention. Lungs: Poor inspiratory effort with no crackles audible Heart: Irregularly irregular pulse with systolic and diastolic murmur audible Abdomen: Soft nontender, bowel sounds present, Extremities: No edema, Neuro: Alert, oriented, no focal neurological deficits. Detailed neuro exam was not performed. 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 Moderate MR, moderate aortic regurgitation PLAN Discontinue IV heparin drip. Consider repeating limited echo tomorrow. If no recollection of fluid, consider starting anticoagulation for atrial fibrillation. Continue metoprolol uptitrate as tolerated. Patient may need NICOLE to evaluate for endocarditis on Friday. At this time patient's respiratory status is not optimized. Objective - Vital Signs Vital signs: Vital Signs Temp 98.2 F 01/25/24 20:00 Pulse 95 01/25/24 22:15 Resp 13 01/25/24 22:15 BP 80/60 01/25/24 22:15 Pulse Ox 100 01/25/24 22:15 FiO2 Intake & Output 01/25/24 01/25/24 01/26/24 06:59 18:59 06:59 Intake Total 7086.604 0270.398 1120 Output Total 100 625 0 Balance 3470.178 4946.398 1120 Weight 89.1 kg Intake: IV 1130 120 220 Sodium Chloride 0.45% 1, 200 000 ml @ 100 mls/hr IV . [id number] [facility]T with Sodium Bicarb (1 Meq/ml) 150 ml Rx#:[id number] Sodium Chloride 0.45% 1, 550 100 000 ml @ 50 mls/hr IV . Q22H [facility] with Sodium Bicarb (1 Meq/ml) 100 ml Rx#:[id number] Vancomycin 1,500 mg In 500 Sodium Chloride 0.9% 500 ml 500 ml @ 167 mls/hr IVPB Q12HR [facility]T Rx#: [id number] kvo 80 20 20 Intake, IV Titration 229.188 981.398 300 Amount Dextrose 5% in Water 1, 700 300 000 ml @ 100 mls/hr IV . [id number] [facility]GETT with Sodium Bicarb (1 Meq/ml) 150 ml Rx#:[id number] Norepinephrine 32 mg In 55.607 81.398 Sodium Chloride 0.9% 250 ml @ 0.03 MCG/KG/MIN 1. 295 mls/hr IV .Q24H [facility] Rx#:[id number] Norepinephrine 4 mg In 173.581 Sodium Chloride 0.9% 250 ml @ 0.03 MCG/KG/MIN 9. 332 mls/hr IV .Q24H [facility] Rx#:[id number] Sodium Chloride 0.45% 1, 200 000 ml @ 100 mls/hr IV . [id number] [facility]T with Sodium Bicarb (1 Meq/ml) 150 ml Rx#:[id number] Oral 90 600 Blood Product 948 Ffp 24 Cpd Unit 319 [id number] Ffp 24 Cpd Unit 0 [id number] Output: Chest Tube Drainage 600 Chest Tube Left Lateral 600 Chest Urine 100 25 0 Other: Voiding Method Indwelling Catheter Indwelling Catheter - Labs CBC & Chem 7: 01/25/24 07:53 01/25/24 14:17 Labs: Abnormal Lab Results - Last 24 Hours (Table) 01/25/24 01/25/24 01/25/24 Range/Units 05:50 07:53 07:53 WBC 13.7 H (3.8-10.6) k/uL RBC 2.68 L (4.30-5.90) m/uL Hgb 8.5 L (13.0-17.5) gm/dL Hct 26.4 L (39.0-53.0) % RDW 16.6 H (11.5-15.5) % Plt Count 85 L (150-450) k/uL Neutrophils # 11.6 H (1.3-7.7) k/uL Lymphocytes # 0.3 L (1.0-4.8) k/uL Monocytes # 1.6 H (0-1.0) k/uL PT 21.5 H (10.0-12.5) sec INR 2.1 H (<1.2) APTT 36.3 H (22.0-30.0) sec Sodium 125 L (137-145) mmol/L Carbon Dioxide 12 L (22-30) mmol/L BUN 36 H (9-20) mg/dL Creatinine 1.61 H (0.66-1.25) mg/dL Glucose 100 H (74-99) mg/dL Calcium 7.7 L (8.4-10.2) mg/dL Total Bilirubin 3.3 H (0.2-1.3) mg/dL AST 109 H (17-59) U/L ALT 68 H (4-49) U/L Alkaline Phosphatase 136 H (38-126) U/L Total Protein 4.9 L (6.3-8.2) g/dL Albumin 2.3 L (3.5-5.0) g/dL 01/25/24 Range/Units 14:17 WBC (3.8-10.6) k/uL RBC (4.30-5.90) m/uL Hgb (13.0-17.5) gm/dL Hct (39.0-53.0) % RDW (11.5-15.5) % Plt Count (150-450) k/uL Neutrophils # (1.3-7.7) k/uL Lymphocytes # (1.0-4.8) k/uL Monocytes # (0-1.0) k/uL PT (10.0-12.5) sec INR (<1.2) APTT (22.0-30.0) sec Sodium 127 L (137-145) mmol/L Carbon Dioxide 13 L (22-30) mmol/L BUN (9-20) mg/dL Creatinine (0.66-1.25) mg/dL Glucose (74-99) mg/dL Calcium (8.4-10.2) mg/dL Total Bilirubin (0.2-1.3) mg/dL AST (17-59) U/L ALT (4-49) U/L Alkaline Phosphatase (38-126) U/L Total Protein (6.3-8.2) g/dL Albumin (3.5-5.0) g/dL Microbiology - Last 24 Hours (Table) 01/21/24 12:00 Gram Stain - Preliminary Ascites Fluid Body Fluid Culture - Preliminary 01/22/24 15:20 Blood Culture Gram Stain - Final Blood Blood Culture - Final Methicillin resist S. aureus 01/22/24 15:20 Blood Culture Gram Stain - Final Blood Blood Culture - Final Methicillin resist S. aureus 01/24/24 08:59 Blood Culture Gram Stain - Preliminary Blood
[2024-01-26 05:02] LABS: Anisocytosis Slight; HCT 25.6 % (39.0-53.0); Hypochromasia Marked; MCHC 31.4 g/dL (31.0-37.0); MCV 98.8 fL (80.0-100.0); Macrocytosis Slight; Mean Platelet Volume 8.3; RDW 17.1 % (11.5-15.5); WBC 9.2 k/uL (3.8-10.6)
[2024-01-26 05:19] LABS: African American GFR (CKD) 47 (>60 ml/min/1.73 sqM); Anion Gap 8 mmol/L; Blood Urea Nitrogen 41 mg/dL (9-20); Calcium 7.6 mg/dL (8.4-10.2); Carbon Dioxide 16 mmol/L (22-30); Chloride 101 mmol/L (98-107); Glucose 117 mg/dL (74-99); Non-African American GFR(CKD) 40 (>60 ml/min/1.73 sqM); Sodium 125 mmol/L (137-145)
[2024-01-26 05:21] LABS: Platelet Count 63 k/uL (150-450)
--- NOTE | 2024-01-26 08:16 | P.PN ---
Subjective Progress Note Date: 01/26/24 Principal diagnosis: Large pericardial effusion without tamponade physiology, MRSA bacteremia, atrial fibrillation, hypotension requiring vasopressor use, hyponatremia, SIADH, acute kidney injury, nonanion gap metabolic acidosis, hepatorenal syndrome, , multiple recent falls. History of chronic alcoholic hepatitis with liver cirrhosis and weekly paracentesis, hypertension, pancreatitis, sepsis, previous alcohol abuse with cessation 7 years ago, umbilical hernia, lifelong non-smoker POD #1 echo guided pericardial drain insertion with removal of 480 mL serosanguineous pericardial fluid The patient was seen and examined this morning lying in bed in no acute distress in the intensive care unit. He remains in atrial fibrillation but better controlled with heart rate in the 90s, blood pressure still low with systolic pressure in the 80s, remains on IV levo which has been increased since yesterday. Pericardial drain in place and connected to atrium, total 140 mL serosanguineous fluid present in the atrium. Labs reviewed, WBC back to normal at 9.2, hemoglobin 8.0, platelet count down to 63,000, sodium 125, creatinine up to 1.74. Antibiotics switched to daptomycin per infectious disease. Patient remains on sodium bicarb drip as well as sodium bicarb oral, and oral Lopressor and midodrine. Patient denies any pain or shortness of breath. Looks comfortable. Repeat echo to be completed today. Objective - Vital Signs Vital signs: Vital Signs Temp 98.2 F 01/26/24 04:00 Pulse 97 01/26/24 07:00 Resp 11 L 01/26/24 07:00 BP 90/38 01/26/24 07:00 Pulse Ox 93 L 01/26/24 07:00 FiO2 Intake & Output 01/25/24 01/26/24 01/26/24 18:59 06:59 18:59 Intake Total 2139.398 1566.143 209.373 Output Total 625 45 0 Balance 7373.926 0234.143 209.373 Weight 94.7 kg Intake: IV 120 1210 110 Dextrose 5% in Water 1, 1100 100 000 ml @ 100 mls/hr IV . [id number] [facility] with Sodium Bicarb (1 Meq/ml) 150 ml Rx#:[id number] Sodium Chloride 0.45% 1, 100 000 ml @ 50 mls/hr IV . Q22H [facility] with Sodium Bicarb (1 Meq/ml) 100 ml Rx#:[id number] kvo 20 110 10 Intake, IV Titration 981.398 156.143 39.373 Amount Dextrose 5% in Water 1, 700 100 000 ml @ 100 mls/hr IV . [id number] [facility] with Sodium Bicarb (1 Meq/ml) 150 ml Rx#:[id number] Norepinephrine 32 mg In 81.398 56.143 39.373 Sodium Chloride 0.9% 250 ml @ 0.03 MCG/KG/MIN 1. 295 mls/hr IV .Q24H [facility] Rx#:[id number] Sodium Chloride 0.45% 1, 200 000 ml @ 100 mls/hr IV . [id number] [facility] with Sodium Bicarb (1 Meq/ml) 150 ml Rx#:[id number] Oral 90 200 60 Blood Product 948 Ffp 24 Cpd Unit 319 [id number] Ffp 24 Cpd Unit 0 [id number] Output: Chest Tube Drainage 600 40 Chest Tube Left Lateral 600 40 Chest Urine 25 5 0 Other: Voiding Method Indwelling Catheter Indwelling Catheter - Exam CONSTITUTIONAL: Appears comfortable, cooperative, no acute distress RESPIRATORY: Lungs sounds diminished bilaterally with faint expiratory wheezes present. Respirations even, nonlabored. Currently on room air with oxygen saturation 95% CARDIOVASCULAR: S1, S2 present. Irregular rate and rhythm, atrial fibrillation on telemetry. Palpable peripheral pulses bilaterally. Bilateral lower extremity follows scrotal edema present. No calf pain or tenderness noted GASTROINTESTINAL: Abdomen soft, nontender, nondistended. Umbilical hernia present. Active bowel sounds present 4 quadrants. Tolerating diet. No documented bowel movement since admission GENITOURINARY: Cornell present draining minimal clear, yellow urine. Output 30 mL in the last 24 hours INTEGUMENTARY: Skin is warm and dry NEUROLOGIC: Cranial nerves II through XII intact MUSKULOSKELETAL: Able to move all extremities, strength equal bilaterally PSYCHIATRIC: Alert and oriented to person place and time INVASIVE LINES AND TUBES: Left-sided pericardial drain present and connected to continuous wall suction, 140 mL serosanguineous output since insertion yesterday - Allied health notes Allied health notes reviewed: nursing - Labs CBC & Chem 7: 01/26/24 04:24 01/26/24 04:24 Labs: Abnormal Lab Results - Last 24 Hours (Table) 01/25/24 01/25/24 01/25/24 Range/Units 07:53 07:53 14:17 WBC 13.7 H (3.8-10.6) k/uL RBC 2.68 L (4.30-5.90) m/uL Hgb 8.5 L (13.0-17.5) gm/dL Hct 26.4 L (39.0-53.0) % RDW 16.6 H (11.5-15.5) % Plt Count 85 L (150-450) k/uL Neutrophils # 11.6 H (1.3-7.7) k/uL Lymphocytes # 0.3 L (1.0-4.8) k/uL Monocytes # 1.6 H (0-1.0) k/uL PT 21.5 H (10.0-12.5) sec INR 2.1 H (<1.2) APTT 36.3 H (22.0-30.0) sec Sodium 127 L (137-145) mmol/L Carbon Dioxide 13 L (22-30) mmol/L BUN (9-20) mg/dL Creatinine (0.66-1.25) mg/dL Glucose (74-99) mg/dL Calcium (8.4-10.2) mg/dL 01/26/24 01/26/24 Range/Units 04:24 04:24 WBC (3.8-10.6) k/uL RBC 2.60 L (4.30-5.90) m/uL Hgb 8.0 L (13.0-17.5) gm/dL Hct 25.6 L (39.0-53.0) % RDW 17.1 H (11.5-15.5) % Plt Count 63 L (150-450) k/uL Neutrophils # (1.3-7.7) k/uL Lymphocytes # (1.0-4.8) k/uL Monocytes # (0-1.0) k/uL PT (10.0-12.5) sec INR (<1.2) APTT (22.0-30.0) sec Sodium 125 L (137-145) mmol/L Carbon Dioxide 16 L (22-30) mmol/L BUN 41 H (9-20) mg/dL Creatinine 1.74 H (0.66-1.25) mg/dL Glucose 117 H (74-99) mg/dL Calcium 7.6 L (8.4-10.2) mg/dL Microbiology - Last 24 Hours (Table) 01/24/24 08:59 Blood Culture Gram Stain - Preliminary Blood Blood Culture - Preliminary Presumptive MRSA 01/21/24 12:00 Gram Stain - Preliminary Ascites Fluid Body Fluid Culture - Preliminary 01/22/24 15:20 Blood Culture Gram Stain - Final Blood Blood Culture - Final Methicillin resist S. aureus 01/22/24 15:20 Blood Culture Gram Stain - Final Blood Blood Culture - Final Methicillin resist S. aureus Assessment and Plan Assessment: Large pericardial effusion without tamponade physiology found on transthoracic echocardiogram, status post placement of pericardial drain MRSA bacteremia, blood cultures from January 21 and January 23 positive, currently on daptomycin Atrial fibrillation, currently on low-dose beta-nicki Hypotension requiring vasopressor use, currently on levo, midodrine Hyponatremia, SIADH Acute kidney injury Nonanion gap metabolic acidosis, currently on sodium bicarb drip and oral sodium bicarb Hepatorenal syndrome, currently on Sandostatin, IV Lasix stopped History of multiple recent falls without loss of consciousness Medical debility History of chronic alcoholic hepatitis with liver cirrhosis and weekly paracentesis History of hypertension History of pancreatitis History of sepsis Previous alcohol abuse with cessation 7 years ago Umbilical hernia, according to patient recommendation for surveillance, no surgery Lifelong non-smoker Plan: Will continue pericardial drain to continuous wall suction for another 24 hours, monitor output Will repeat echocardiogram today Wean pressors as tolerated Antibiotics per infectious disease A-fib management per cardiology 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
--- NOTE | 2024-01-26 09:49 | P.PN ---
Subjective Progress Note Date: 01/26/24 The patient is a 63-year-old male with multiple comorbid conditions who is currently admitted with severe hyponatremia and liver failure. Cardiology has been consulted for new onset of atrial fibrillation. Patient was also found to have a large pericardial effusion, where on January 24 pericardiocentesis was performed removing 480 milliliters of serosanguineous fluid followed by pericardial drain. Patient was interviewed and examined resting comfortably in bed this morning. Heart rates are better controlled. Patient denies any chest pain or difficulty breathing. He repeatedly asks for water. GENERAL: Ill-appearing, pale, in no acute distress. NECK: Supple without JVD or thyromegaly. LUNGS: Breath sounds clear to auscultation bilaterally. Respiration equal and unlabored. No wheezes, rales or rhonchi. HEART: Irregular rate and rhythm. Soft systolic murmur. No rubs or gallops. S1 and S2 heard. EXTREMITIES: Normal range of motion, no edema. No clubbing or cyanosis. Peripheral pulses intact and strong. TELEMETRY: Atrial fibrillation with heart rates in the 90s LABS: WBC 9.2, hemoglobin 8.0, hematocrit 25.6, platelet 63, sodium 125, potassium 4.0, BUN 41, creatinine 1.74 IMPRESSION: Pericardial effusion, status post pericardiocentesis and drain placement MRSA bacteremia New onset of atrial fibrillation, rate controlled Hypotension, currently on vasopressors Hyponatremia, SIADH Acute kidney injury Valvular heart disease, moderate mitral and aortic regurgitation History of liver cirrhosis, weekly paracentesis PLAN: Per CV surgery, continue pericardial drain for additional 24 hours Resume anticoagulation once drain is removed Continue to wean vasopressors Further recommendations to be based upon clinical course I am dictating on behalf of Dr Trevor Diaz's history/physical and assessment/plan. Objective - Vital Signs Vital signs: Vital Signs Temp 98.2 F 01/26/24 04:00 Pulse 97 01/26/24 07:00 Resp 11 L 01/26/24 07:00 BP 90/38 01/26/24 07:00 Pulse Ox 93 L 01/26/24 07:00 FiO2 Intake & Output 01/25/24 01/26/24 01/26/24 18:59 06:59 18:59 Intake Total 2139.398 1566.143 209.373 Output Total 625 45 0 Balance 8096.587 1516.143 209.373 Weight 94.7 kg Intake: IV 120 1210 110 Dextrose 5% in Water 1, 1100 100 000 ml @ 100 mls/hr IV . [id number] [facility] with Sodium Bicarb (1 Meq/ml) 150 ml Rx#:[id number] Sodium Chloride 0.45% 1, 100 000 ml @ 50 mls/hr IV . Q22H [facility] with Sodium Bicarb (1 Meq/ml) 100 ml Rx#:[id number] kvo 20 110 10 Intake, IV Titration 981.398 156.143 39.373 Amount Dextrose 5% in Water 1, 700 100 000 ml @ 100 mls/hr IV . [id number] [facility] with Sodium Bicarb (1 Meq/ml) 150 ml Rx#:[id number] Norepinephrine 32 mg In 81.398 56.143 39.373 Sodium Chloride 0.9% 250 ml @ 0.03 MCG/KG/MIN 1. 295 mls/hr IV .Q24H [facility] Rx#:[id number] Sodium Chloride 0.45% 1, 200 000 ml @ 100 mls/hr IV . [id number] [facility] with Sodium Bicarb (1 Meq/ml) 150 ml Rx#:[id number] Oral 90 200 60 Blood Product 948 Ffp 24 Cpd Unit 319 [id number] Ffp 24 Cpd Unit 0 [id number] Output: Chest Tube Drainage 600 40 Chest Tube Left Lateral 600 40 Chest Urine 25 5 0 Other: Voiding Method Indwelling Catheter Indwelling Catheter - Labs CBC & Chem 7: 01/26/24 04:24 01/26/24 04:24 Labs: Abnormal Lab Results - Last 24 Hours (Table) 01/25/24 01/25/24 01/26/24 Range/Units 07:53 14:17 04:24 RBC (4.30-5.90) m/uL Hgb (13.0-17.5) gm/dL Hct (39.0-53.0) % RDW (11.5-15.5) % Plt Count 85 L (150-450) k/uL Neutrophils # 11.6 H (1.3-7.7) k/uL Lymphocytes # 0.3 L (1.0-4.8) k/uL Monocytes # 1.6 H (0-1.0) k/uL Sodium 127 L 125 L (137-145) mmol/L Carbon Dioxide 13 L 16 L (22-30) mmol/L BUN 41 H (9-20) mg/dL Creatinine 1.74 H (0.66-1.25) mg/dL Glucose 117 H (74-99) mg/dL Calcium 7.6 L (8.4-10.2) mg/dL 01/26/24 Range/Units 04:24 RBC 2.60 L (4.30-5.90) m/uL Hgb 8.0 L (13.0-17.5) gm/dL Hct 25.6 L (39.0-53.0) % RDW 17.1 H (11.5-15.5) % Plt Count 63 L (150-450) k/uL Neutrophils # (1.3-7.7) k/uL Lymphocytes # (1.0-4.8) k/uL Monocytes # (0-1.0) k/uL Sodium (137-145) mmol/L Carbon Dioxide (22-30) mmol/L BUN (9-20) mg/dL Creatinine (0.66-1.25) mg/dL Glucose (74-99) mg/dL Calcium (8.4-10.2) mg/dL Microbiology - Last 24 Hours (Table) 01/24/24 08:59 Blood Culture Gram Stain - Preliminary Blood Blood Culture - Preliminary Presumptive MRSA 01/21/24 12:00 Gram Stain - Preliminary Ascites Fluid Body Fluid Culture - Preliminary 01/22/24 15:20 Blood Culture Gram Stain - Final Blood Blood Culture - Final Methicillin resist S. aureus 01/22/24 15:20 Blood Culture Gram Stain - Final Blood Blood Culture - Final Methicillin resist S. aureus
[2024-01-26] MEDS: SODIUM CHLORIDE 0.9% 1,000 ML IV ONE (09:59)
--- NOTE | 2024-01-26 10:12 | P.PN ---
Subjective Patient is seen in follow-up for acute kidney injury. Creatinine fairly stable but patient remains oliguric. On Levophed. Currently on bicarb drip. Acidosis improving. On room air. Vital signs are stable. On vasopressor support. General: No acute distress. HEENT: Head exam is unremarkable. LUNGS: No audible rhonchi or wheezes. HEART: Rate and Rhythm are regular. ABDOMEN: Mild distention. Soft. Hernia noted. EXTREMITITES: No edema. Objective - Vital Signs Vital signs: Vital Signs Temp 98.2 F 01/26/24 04:00 Pulse 97 01/26/24 07:00 Resp 11 L 01/26/24 07:00 BP 90/38 01/26/24 07:00 Pulse Ox 93 L 01/26/24 07:00 FiO2 Intake & Output 01/25/24 01/26/24 01/26/24 18:59 06:59 18:59 Intake Total 2139.398 1566.143 209.373 Output Total 625 45 0 Balance 4486.399 5548.143 209.373 Weight 94.7 kg Intake: IV 120 1210 110 Dextrose 5% in Water 1, 1100 100 000 ml @ 100 mls/hr IV . [id number] [facility]T with Sodium Bicarb (1 Meq/ml) 150 ml Rx#:[id number] Sodium Chloride 0.45% 1, 100 000 ml @ 50 mls/hr IV . Q22H [facility] with Sodium Bicarb (1 Meq/ml) 100 ml Rx#:[id number] kvo 20 110 10 Intake, IV Titration 981.398 156.143 39.373 Amount Dextrose 5% in Water 1, 700 100 000 ml @ 100 mls/hr IV . [id number] [facility] with Sodium Bicarb (1 Meq/ml) 150 ml Rx#:[id number] Norepinephrine 32 mg In 81.398 56.143 39.373 Sodium Chloride 0.9% 250 ml @ 0.03 MCG/KG/MIN 1. 295 mls/hr IV .Q24H [facility] Rx#:[id number] Sodium Chloride 0.45% 1, 200 000 ml @ 100 mls/hr IV . [id number] [facility] with Sodium Bicarb (1 Meq/ml) 150 ml Rx#:[id number] Oral 90 200 60 Blood Product 948 Ffp 24 Cpd Unit 319 [id number] Ffp 24 Cpd Unit 0 [id number] Output: Chest Tube Drainage 600 40 Chest Tube Left Lateral 600 40 Chest Urine 25 5 0 Other: Voiding Method Indwelling Catheter Indwelling Catheter - Labs CBC & Chem 7: 01/26/24 04:24 01/26/24 04:24 Labs: Abnormal Lab Results - Last 24 Hours (Table) 01/25/24 01/26/24 01/26/24 Range/Units 14:17 04:24 04:24 RBC 2.60 L (4.30-5.90) m/uL Hgb 8.0 L (13.0-17.5) gm/dL Hct 25.6 L (39.0-53.0) % RDW 17.1 H (11.5-15.5) % Plt Count 63 L (150-450) k/uL Sodium 127 L 125 L (137-145) mmol/L Carbon Dioxide 13 L 16 L (22-30) mmol/L BUN 41 H (9-20) mg/dL Creatinine 1.74 H (0.66-1.25) mg/dL Glucose 117 H (74-99) mg/dL Calcium 7.6 L (8.4-10.2) mg/dL Microbiology - Last 24 Hours (Table) 01/21/24 12:00 Gram Stain - Final Ascites Fluid Body Fluid Culture - Final 01/24/24 08:59 Blood Culture Gram Stain - Preliminary Blood Blood Culture - Preliminary Presumptive MRSA 01/22/24 15:20 Blood Culture Gram Stain - Final Blood Blood Culture - Final Methicillin resist S. aureus 01/22/24 15:20 Blood Culture Gram Stain - Final Blood Blood Culture - Final Methicillin resist S. aureus Assessment and Plan Plan: Assessment: 1. Acute kidney injury secondary to ATN secondary to septic shock. Creatinine 1.74 today. Oliguric. 2. Septic shock secondary to MRSA bacteremia. 3. Hyponatremia secondary to acute kidney injury. 4. Metabolic acidosis secondary to acute kidney injury maintained on bicarb drip. Improving. 5. History of liver cirrhosis requiring weekly paracentesis. Last paracentesis January 21, 2024 with 3.2 L drained. 6. Moderate mitral and aortic regurgitation. 7. Pericardial effusion status post placement of pericardial drain. Plan: Maintain bicarb drip. Patient also scheduled to receive another liter bolus due to hypotension. Wean Levophed as able. Continue to assess daily for need for renal replacement therapy. No urgency at this time. Also hemodynamically unstable at this time. Case discussed with patient at bedside and also his daughter over the phone. Agreeable for renal replacement therapy if needed. Avoid nephrotoxins.
--- NOTE | 2024-01-26 10:51 | P.PN ---
Subjective Progress Note Date: 01/26/24 Principal diagnosis: Septic shock with MRSA bacteremia Patient is a 63-year-old male with past medical history significant for liver cirrhosis, abdominal ascites with weekly paracentesis, pancreatitis, alcoholism, among other things. Of note, patient had a recent hospitalization August 2023 where he was weak and confused and found to have severe hyponatremia. He did require 3% sodium infusion and brief ICU admission at that time. Patient sent in from [facility] last night. Reportedly, had multiple falls over the past couple days. Last night, he was found on the ground. Patient reports that he may have been on the ground for 2 to 3 hours. States that his legs just gave out. Denies losing consciousness. Denies losing hitting his head. States he landed on his right shoulder, which is a little sore. No limitation in motion or obvious trauma. skin tears noted bilateral upper extremitites. He does appear to be in a positive fluid balance. Does take Lasix, Aldactone, and salt tablets on outpatient basis. Also, undergoes weekly paracentesis by IR, and his next paracentesis is scheduled for tomorrow. His abdomen is full and distended. Nontender. He has severe bilateral lower extremity edema. On arrival to the emergency department he was noted to be hypotensive, has missed all 3 of his doses of midodrine yesterday. CBC: WBC count 15.9, hemoglobin 9.5, hematocrit 29.7, platelets 155. Coagulation profile includes a PT of 15.7, INR of 1.5, APTT 33.6. CMP on arrival: Sodium 113, potassium 5.1, chloride 92, serum bicarb 13, BUN 18, creatinine 0.99, glucose 114. LFTs unremarkable. Urinalysis showing moderate leukocytes and occasional bacteria. Patient denies any troubles or difficulty urinating, no dysuria, no fevers, flank pain, hematuria. No polyuria or excessive water intake. No notable fluid losses. Generalized weakness and falls are chief symptoms. No confusion, seizures, coma. Hypothyroidism and adrenal insufficiency previously ruled out. Nephrology has been consulted, is requesting this patient be monitored in the intensive care unit in case he needs 3% hypertonic saline. Most recent sodium is 112, however, the Lasix is still not been given due to hypotension. On 01/22/2024, patient is being seen for a follow-up. Awake and alert. No significant respiratory distress. The patient is currently on room air oxygen with a pulse ox of 98%. Abdominal paracentesis was done yesterday and the fluid was negative for infection. Culture still pending. Earlier this morning, the patient is on hypertonic saline 3% which is running at 20 cc an hour. Sodium level was 116 and subsequently upon 918. He has 1.07. The patient has a serum bicarb of 14. Patient will be given IV bicarb 100 mL equivalents total IV and she will be started on oral bicarb supplements. Urine output is in order of 10 cc an hour. Blood culture was positive for MRSA. Rocephin was discontinued and the patient was started on vancomycin. The patient is also on midodrine. The patient is on octreotide. 01/23/2024, the patient is being seen for a follow-up. The patient is awake and alert and the patient remains on room air oxygen. He did have staff aureus bacteremia the patient is currently on vancomycin. He remains hypotensive and the patient is currently on low-dose norepinephrine which is running at 0.08 mcg/kg/min. The patient remains on hypertonic saline 3% running at 20 cc an hour and the patient's sodium level is at 121. He does have some ascites. Urine output is in order of 20 cc an hour. White cell count of 22.9 with a hemoglobin 9.2. No evidence of any GI bleeding. No evidence of any encephalopathy. BUN is 27 with a creatinine of 1.1 and a potassium of is at 4.5. Remains on IV Rocephin and vancomycin. Remains on midodrine. Remains on pressors. Remains on octreotide. On 01/24/2024, the patient remains, comfortable on room air oxygen. He remains hypotensive as the patient was septic and the blood cultures positive for gram- positive cocci in clusters suggestive of MRSA and the patient remains on vancomy osmin. The patient currently is on norepinephrine which is running at 0.08 mcg/kg/min. Hypertonic saline was discontinued and the patient is currently on KVO IV fluids. Echocardiogram showed a ejection fraction of 50 to 55%. Large pericardial effusion without tamponade physiology. No clear indication for any vegetation at this point in time based on the routine transthoracic echocardiogram. The white cell count of 13.6, hemoglobin is at 9 and a platelet count is 101. Sodium is at 122, BUN is 32 with a creatinine of 1.38, AST is 132, ALT 75 and alkaline phosphatase 122. Vancomycin trough is 34.5. Blood sugar is at 127. Repeat blood cultures will be obtained for today. No significant encephalopathy. No respiratory distress. He does have abdominal ascites with a large abdominal wall hernia also noted/umbilical hernia. On 01/25/2024, the patient is being seen for a follow-up. The patient is slightly confused on today's evaluation and urine output is low. He remains hypotensive on pressors and the patient is currently on norepinephrine running at the lower dose to support his blood pressure. Repeat blood cultures still positive for MRSA/gram-positive cocci and the patient remains on vancomycin. As noted, he has a large pericardial effusion without any tamponade. Cardiology and cardiothoracic surgery on the case. The patient will likely need a pericardiocentesis today. Meanwhile, no major edema lower extremities. Urine output is low. Is developed progressive worsening renal function the creatinine is up to 1.6. BUN 36. Sodium levels at 125. Bicarb level is down to 12. He remains on a bicarb infusion with half-normal saline and a total of 100 mEq of sodium bicarb. The white cell count of 13.7. Hemoglobin 8.5 and a platelet count of 85. proBNP level is 38,000. Vancomycin trough from yesterday was 24.5. He remains on room air oxygen. Patient seen today on 01/26/2024, remains in the ICU, still requiring significant amount of pressors he is on norepinephrine at 0.18 mcg/kg/min still receiving bicarb drip at 100 cc/h still on Sandostatin. Patient has received 2 units of fresh frozen plasma INR is 2.1 today. Patient underwent pericardiocentesis yesterday, 470 mL out, cultures on the fluid are pending. Cytology is pending. Patient is receiving treatment for MRSA sepsis and septic shock with bacteremia, cultures on the pericardial fluid are pending t echocardiogram showed no evidence of vegetations on the valves. Patient continues to have ascites intermittently and he has a large umbilical hernia. Urine output remains marginal WBC count is 9.2 hemoglobin is 8 sodium is 125 potassium 4.0 chloride 101 bicarb is 16 BUN is 41 creatinine 1.74. Patient remains oliguric and spite of fluids, bicarb, and norepinephrine. Objective - Vital Signs Vital signs: Vital Signs Temp 98.5 F 01/26/24 08:00 Pulse 98 01/26/24 10:15 Resp 20 01/26/24 10:15 BP 77/44 01/26/24 10:15 Pulse Ox 93 L 01/26/24 10:15 FiO2 Intake & Output 01/25/24 01/26/24 01/26/24 18:59 06:59 18:59 Intake Total 2139.398 8044.921 3004.373 Output Total 625 45 0 Balance 8968.463 8741.143 1889.373 Weight 94.7 kg Intake: IV 120 1210 1540 DAPTOmycin 550 mg In 100 Sodium Chloride 0.9% 50 ml @ 100 mls/hr IVPB Q24HR BRIDGETT Rx#:[id number] Dextrose 5% in Water 1, 1100 400 000 ml @ 100 mls/hr IV . [id number] BRIDGETT with Sodium Bicarb (1 Meq/ml) 150 ml Rx#:[id number] Normal Saline as KVO @ 20 110 40 10mL/hr Sodium Chloride 0.45% 1, 100 000 ml @ 50 mls/hr IV . Q22H BRIDGETT with Sodium Bicarb (1 Meq/ml) 100 ml Rx#:[id number] Sodium Chloride 0.9% 1, 1000 000 ml @ 1000 mls/hr IV ONCE ONE Rx#:[id number] Intake, IV Titration 981.398 156.143 39.373 Amount Dextrose 5% in Water 1, 700 100 000 ml @ 100 mls/hr IV . [id number] BRIDGETT with Sodium Bicarb (1 Meq/ml) 150 ml Rx#:[id number] Norepinephrine 32 mg In 81.398 56.143 39.373 Sodium Chloride 0.9% 250 ml @ 0.03 MCG/KG/MIN 1. 295 mls/hr IV .Q24H BRIDGETT Rx#:[id number] Sodium Chloride 0.45% 1, 200 000 ml @ 100 mls/hr IV . [id number] BRIDEGTT with Sodium Bicarb (1 Meq/ml) 150 ml Rx#:[id number] Oral 90 200 310 Blood Product 948 Ffp 24 Cpd Unit 319 [id number] Ffp 24 Cpd Unit 0 [id number] Output: Chest Tube Drainage 600 40 0 Chest Tube Left Lateral 600 40 0 Chest Urine 25 5 0 Other: Voiding Method Indwelling Catheter Indwelling Catheter - Exam GENERAL EXAM: Alert, 63-year-old white male, on room air with O2 sat is 93% HEAD: Normocephalic and atraumatic EYES: Normal reaction of pupils, equal size. NOSE: Clear with pink turbinates. THROAT: No erythema or exudates. NECK: No masses, no JVD. CHEST: No chest wall deformity. LUNGS: Minich breath sounds at the bases no crackles rhonchi or wheezes CVS: Distant S1 and S2 normal 2/6 systolic murmur throughout the precordium pericardiocentesis catheter is noted draining into a Pleur-evac at 450 cc since yesterday out. ABDOMEN: Positive ascites, nontender, large umbilical hernia noted. SKIN: No rashes. Bilateral upper extremity skin tears. CENTRAL NERVOUS SYSTEM: Alert oriented x 3 no gross focal neurologic deficit EXTREMITIES: There is bilateral 3+ lower extremity edema. No clubbing, or cyanosis. Peripheral pulses are intact. - Labs CBC & Chem 7: 01/26/24 04:24 01/26/24 04:24 Labs: Abnormal Lab Results - Last 24 Hours (Table) 01/25/24 01/26/24 01/26/24 Range/Units 14:17 04:24 04:24 RBC 2.60 L (4.30-5.90) m/uL Hgb 8.0 L (13.0-17.5) gm/dL Hct 25.6 L (39.0-53.0) % RDW 17.1 H (11.5-15.5) % Plt Count 63 L (150-450) k/uL Sodium 127 L 125 L (137-145) mmol/L Carbon Dioxide 13 L 16 L (22-30) mmol/L BUN 41 H (9-20) mg/dL Creatinine 1.74 H (0.66-1.25) mg/dL Glucose 117 H (74-99) mg/dL Calcium 7.6 L (8.4-10.2) mg/dL Microbiology - Last 24 Hours (Table) 01/21/24 12:00 Gram Stain - Final Ascites Fluid Body Fluid Culture - Final 01/24/24 08:59 Blood Culture Gram Stain - Preliminary Blood Blood Culture - Preliminary Presumptive MRSA 01/22/24 15:20 Blood Culture Gram Stain - Final Blood Blood Culture - Final Methicillin resist S. aureus 01/22/24 15:20 Blood Culture Gram Stain - Final Blood Blood Culture - Final Methicillin resist S. aureus Assessment and Plan Assessment: Impression: Septic shock secondary to MRSA bacteremia and pericardial effusion without tamponade findings. Transthoracic echocardiogram showed no evidence of vegetations cultures from the pericardial fluid are pending Hypotension, secondary to septic shock, still requiring antibiotics and requiring pressors/norepinephrine Severe hyponatremia, the patient's sodium level is stable and the patient is off hypertonic saline, sodium level is stable for now. Acute kidney injury/acute tubular necrosis secondary to sepsis septic shock and hypotension Liver cirrhosis with abdominal ascites and weekly paracentesis, last paracentesis was done 01/21/2020 for a total of 3 to 4 L of fluid was aspirated. Patient is known to have history of alcoholism. Coagulopathy, secondary to above Acute leukocytosis, no obvious infectious process, improving Non-anion gap metabolic acidosis, currently on bicarb infusion Anemia of chronic disease History of pancreatitis Frequent falls Pericardial effusion without any tamponade physiology. Normal LV function Commendation: Continue to monitor in the ICU Continue hemodynamic support/pressors May require NICOLE Continue antibiotics/vancomycin with Rocephin Continue bicarb drip for his metabolic acidosis Still investigate for the primary source is his MRSA bacteremia Check cultures on the pericardiocentesis fluid Consider another paracentesis for his ascites Continue midodrine Nephrology is following for his acute kidney injury Patient is also being's followed by cardiothoracic surgery and he is status post pericardiocentesis Patient remains critically ill Will continue to monitor in the ICU and critical care time is over 30-minute Time with Patient: Greater than 30
--- NOTE | 2024-01-26 12:57 | CA ---
Transthoracic Echo Report Name: Fred Kim Age: 63 Gender: M : 1960 Exam Date: 01/26/2024 09:41 Exam Location: [facility] Ht (in): 72 Wt (lb): 196 Ordering Physician: Danika Zapata Attending/Referring Phys: [id number], Jodi Casting Associate Roberta Byers, [id number] Procedure CPT: Indications: eval LV function, pericardial effusion Cardiac Hx: Pericardial window Technical Quality: Fair Contrast 1: Total Dose (mL): Contrast 2: Total Dose (mL): MEASUREMENTS (Male / Female) Normal Values M-MODE Aortic Root Diameter MM 3.4 cm LA Systolic Diameter MM 4.2 cm LA Ao Ratio MM 1.2 AV Cusp Separation MM 2.4 cm FINDINGS Left Ventricle Left ventricular ejection fraction is estimated at 55-60%. Normal left ventricular systolic function with no obvious regional wall motion abnormalities. Right Ventricle Right Atrium Left Atrium Mitral Valve Aortic Valve Tricuspid Valve Pulmonic Valve Pericardium Small pericardial effusion. Pericardial effusion located posteriorly. Grade 3: severe ascites. Aorta CONCLUSIONS Limited study LV systolic function is well-preserved, small to trace pericardial effusion Previewed by: Dr. Maude Palacios MD (Electronically Signed) Final Date: 26 January 2024 12:56
--- NOTE | 2024-01-26 15:12 | XR ---
EXAMINATION TYPE: XR chest 1V portable DATE OF EXAM: 01/26/2024 Comparison: 01/24/2024 Clinical History: 63-year-old male SOB, increase o2 demand Findings: Heart mildly enlarged. Interstitial and perihilar opacities are increasing as are patchy bibasilar op acities. No sizable pleural effusion on the frontal view. Impression: Mild cardiomegaly with increasing interstitial densities and patchy bibasilar opacities, possible seq uela of CHF with mild interstitial pulmonary edema. Correlate to exclude pneumonitis. [facility], , 01/26/2024 3:10 PM
--- NOTE | 2024-01-26 19:26 | P.PN ---
Subjective Progress Note Date: 01/26/24 HISTORY OF PRESENT ILLNESS: This is a 63 year old male with a previous medical history significant for hypertension and hypertensive cardiovascular disease, hyperlipidemia, history of pancreatitis in the past along with prior history of sepsis due to cellulitis about 2 year ago, history of chronic alcoholic hepatitis with alcoholic liver cirrhosis for which he has been following with Dr. Smith as an outpatient and has been getting a weekly paracentesis at [facility] every Friday, patient was recently hospitalized at [facility] from two 01/05 2024 for significant hyponatremia with a sodium level as low as 118, patient was treated with fluid restriction as well as salt tablets, and he was treated with IV diuretics in the form of Lasix and spironolactone, his sodium got as good as 123, I believe the patient does have reset osmostat at this point in time, and he has a new baseline at around 04/29/2024, patient was brought into the emergency department at [facility] this time because of recurrent falls over the last few weeks with increased falls 3 times, he fell against his right shoulder, he has limited range of motion of the right shoulder, patient has minimal bruises in the right knee, he has significant bruising in the left hip, he does appear to have edema in the abdomen as well as the upper thigh, he does not appear to have a significant edema both lower extremities, initially was started on Lasix 40 mg IV push every 12 hours, and the patient was having good urine output, his sodium went up to 115, then the patient sodium went down to 114 after he was given 60 cc of 3% hypertonic solution, therefore he was taken off that after nephrology seen the patient, and he was started on normal saline 1 L over the next hour, recheck his sodium level at 330, he was also started on Sandostatin 100 mcg IV push every 8 hours for hepatorenal syndrome, patient was admitted to the hospital he was also found to have a significant leukocytosis he was started on ceftriaxone, he had paracentesis in the ICU and his fluid were sent for cell count and differential rule out spontaneous bacterial peritonitis patient does not appear to have any fever or chills at this time he does not have any fever at this point in time either. 01/21: Patient is laying down in bed he appears to be very weak, he is in atrial fibrillation with heart rate is around 116, patient has no chest pain, he appears to be somewhat short of breath, he has been on fluid restriction, he is asking to reduce his fluid restriction to 1500 cc in a 24 hours, will continue to follow-up with the patient very closely, will obtain cardiology consultation, patient continues to have significant pain in his shoulders, he was started on morphine 2 mg IV push every 4 hours as needed for pain control, we will continue to follow-up the patient in the intensive care unit, monitor input and output and daily weight, blood cultures are positive for methicillin-resistant Staphylococcus aureus, patient was started on IV antibiotic in the form of vancomycin pharmacy to dose his peak and trough, continue ceftriaxone 1 g every back every 24 hours, patient continues to have leukocytosis, we will monitor the patient very closely. Infectious disease consultation will be obtained. 01/22: Patient sitting up in bed in no apparent distress, he is more awake and more alert today, his sodium is at 125, we will discontinue hypertonic saline 3%, continue patient on sodium bicarbonate tablet 650 mg orally twice every day, monitor the patient CMP over the next 24 hours, continue fluid restriction 1500 cc, continue IV antibiotic in the form of vancomycin and Rocephin, consult infectious disease Dr. Randle, patient has been followed by pulmonary medicine as well as nephrology, will continue to follow-up with the patient very closely patient was seen in consultation by cardiology, he was started on metoprolol 12.5 mg orally 3 times every day, will continue rate control, patient is not a candidate for anticoagulation due to his increased risk of bleeding. Echocardiogram showed ejection fraction of 55%, with moderate mitral regurgitation and aortic regurgitation with a large pericardial effusion without evidence of tamponade cardiology is following. 01/23: Patient sitting up in the bed that he appears to be somewhat short of breath, he continues to be in the fluid restriction, his last sodium is 127, he was started on sodium bicarbonate drip by nephrology, he did receive 1 dose of Lasix and his urine output is very low, patient appears to be edematous at this time, he does appear to have a significant pericardial effusion, will consult cardiothoracic surgery for possible pericardiocentesis, patient also will be started on Lasix 80 mg IV push every 12 hours, continue Levophed drip at this time, monitor the patient very closely, patient appears to be critical at this p oint in time, I spoke with the patient about his current prognosis and he continues to be full code for now. 01/24: Patient is laying down in bed in mild respiratory distress, his daughter was at the bedside, patient was seen in consultation by thoracic surgery he went for pericardiocentesis by Dr. Danielson with 450 cc of serosanguineous fluid and echo showed evidence of trivial fluid around the heart at this time, patient blood pressure did not recover from this at this point in time he continues to be hypotensive, he continued to be on Levophed, I had a long conversation with patient as well as nephrology today, the patient appears to be quite acidotic at this time, he was started on sodium bicarbonate drip at 100 cc an hour, he is not making any urine at this time about 10 cc an hour, if the patient is not improving over the next 24 hours he will need to be started on hemodialysis robert use the patient acidotic as well as not making any urine at this time he became oliguric at this point in time due to hepatorenal syndrome. Patient is aware of the prognosis continues to be very guarded at this time, we will follow-up with the patient very closely, patient continues to be bacteremic at this time with MRSA, infectious disease is following, patient may need to have a transesophagea l echocardiogram for evaluation of possible endocarditis. 01/25: Patient is laying down in bed appears to be in more distress today, he continues to be somewhat confused, his blood pressures on the lower side, doubled the amount of Levophed that he is taking, he has been in the ICU still, he still have the VAC in place from the pericardiocentesis, no more fluid coming out about 500 serosanguineous fluid still in there, patient's sodium is stable at 125, his creatinine is up to 1.7, I had a long conversation with the patient about the possibility of doing hemodialysis even for short period of time due to oliguric acute tubular necrosis and he stated that he will consider that, patient does appear to be quite sick at this point in time, and I believe we will continue to monitor the patient very closely provide him with the acute care, but the long-term prognosis continues to be guarded. His urine output continues to be marginal about 5 cc an hour. REVIEW OF SYSTEMS: Constitutional: No documented fever, no chills, no night sweats. No weight change. positive for weakness, positive for fatigue or lethargy. No daytime sleepiness. HEENT: No headache. No blurred vision or double vision, no loss of vision. No loss of Hearing, no ringing in the ears, no dizziness. No nasal drainage or congestion. No epistaxis. No sore throat. Lungs: positive for shortness of breath, occasional cough, no sputum production. positive for wheezing. Reports dyspnea with activity. Cardiovascular: No chest pain, positive for lower extremity edema. No palpitations. No paroxysmal nocturnal dyspnea. No orthopnea. No lightheadedness or dizziness. No syncopal episodes. Abdominal: Reports no abdominal pain. No nausea, vomiting. no diarrhea. No constipation. No bloody or tarry stools reports loss of appetite. Genitourinary: No dysuria, increased frequency, urgency. No urinary retention. Musculoskeletal: No myalgias. positive for muscle weakness, no gait dysfunction, positive for frequent falls. No back pain. No neck pain. Integumentary: No wounds, no lesions. No rash or pruritus. Positive for unusual bruising. No change in hair or nails. Positive for ecchymosis of the r ight knee. Neurologic: No aphasia. No facial droop. No change in mentation. No head injury. No headache. No paralysis. No paresthesia. Psychiatric: positive for depression. positive for anxiety. No mood swings. Endocrine: No abnormal blood sugars. No weight change. PHYSICAL EXAMINATION: General: 63-year-old male is sitting up in bed in mild respiratory distress HEENT: Head is atraumatic, normocephalic, pupils were equal round reactive to light and recommendation, extraocular muscle movement were intact, sclera are deeply icteric, conjunctivae were pale, mucous membranes of the mouth are somewhat dry. Neck: Supple, positive for JVP, normal carotid upstroke bilaterally, no lymphadenopathy. Chest: Decreased breath sounds at the bases, few rhonchi, positive for expiratory wheezes, no chest wall tenderness, positive for mild intercostal retractions. Heart: First heart sound is normal, second heart sound is normal there is BLANCA 2/6 located at the left sternal border, irregular due to atrial fibrillation there is a pleural VAC in place. Abdomen: Soft, distended moderate ascites, no tenderness, positive bowel sounds. Extremities: There is +2 edema no calf tenderness DP +2 bilaterally. Neurologic examination: Patient is awake alert and oriented X 3, cranial nerves II-12 appear grossly intact, muscle power were 4 out of 5 in upper extremities and 3 out of 5 in bilateral lower extremities, deep tendon reflexes normal bilaterally. ASSESSMENT AND PLAN: 1. 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 patient is back on sodium chloride tablet 1 g orally twice every day fluid restriction 1500 cc, sodium has been stable at 125. 2. MRSA bacteremia. Continue patient on IV antibiotic in the form of vancomycin with pharmacy to dose his peak and trough, continue ceftriaxone 1 g piggyback every 24 hours, infectious disease consultation Dr. Randle. Appreciated. 3. Atrial fibrillation patient is not a candidate for anticoagulation at this point in time, continue patient on metoprolol 12.5 mg orally 3 times every day, cardiology consultation appreciated. 4. Acute kidney injury due to acute tubular necrosis and vasomotor nephropathy patient has become oliguric with significant acidosis currently on sodium bicarbonate drip at 100 cc an hour, he was also started on sodium bicarbonate tablet 1300 mg orally twice every day nephrology is following the patient for possible hemodialysis if there is no improvement in urine output. 5. Hyperkalemia due to acute kidney injury due to ATN and the use of spironolactone. Resolved. 6. None anion gap metabolic acidosis. Patient was started on sodium bicarbonate drip. Patient likely will go into dialysis if there is no improvement over the next 24 hours. Because he becomes oliguric due to hepatorenal syndrome. 7. Chronic liver cirrhosis with recurrence ascites. Status post weekly pa racentesis. He just had last Friday. Fluid did not show evidence of any WBC no evidence of spontaneous bacterial peritonitis. 8. Hepatorenal syndrome. Discontinue Sandostatin. Patient will likely go on dialysis in the next 24 hours if there is no improvement of his acidosis and and his fluid status. 9. GERD. Continue patient on Protonix 40 mg orally once every day. 10. DVT prophylaxis. Bilateral knee-high TAMI hose. 11. Orthostatic hypotension continue patient on midodrine 10 mg orally 3 times every day. Currently on Levophed. 12. Right shoulder pain likely related to rotator cuff tear continue current pain management for now. 13. Medical debility due to underlying liver cirrhosis physical therapy evaluation. 14. Large pericardial effusion without evidence of tamponade. Status post pericardiocentesis that was done by cardiothoracic surgery. 15. Overall prognosis very guarded. 16. Patient is full code. Objective - Vital Signs Vital signs: Vital Signs Temp 97.6 F 01/26/24 16:00 Pulse 97 01/26/24 19:00 Resp 18 01/26/24 19:00 BP 92/45 01/26/24 19:00 Pulse Ox 97 01/26/24 19:00 FiO2 Intake & Output 01/26/24 01/26/24 01/27/24 06:59 18:59 06:59 Intake Total 6790.134 0100.373 Output Total 45 20 Balance 1197.455 0176.373 Weight 94.7 kg Intake: IV 1210 2530 DAPTOmycin 550 mg In 100 Sodium Chloride 0.9% 50 ml @ 100 mls/hr IVPB Q24HR BRIDGETT Rx#:[id number] Dextrose 5% in Water 1, 1100 1300 000 ml @ 100 mls/hr IV . [id number] BRIDGETT with Sodium Bicarb (1 Meq/ml) 150 ml Rx#:[id number] Normal Saline as KVO @ 110 130 10mL/hr Sodium Chloride 0.9% 1, 1000 000 ml @ 1000 mls/hr IV ONCE ONE Rx#:[id number] Intake, IV Titration 156.143 39.373 Amount Dextrose 5% in Water 1, 100 000 ml @ 100 mls/hr IV . [id number] BRIDGETT with Sodium Bicarb (1 Meq/ml) 150 ml Rx#:[id number] Norepinephrine 32 mg In 56.143 39.373 Sodium Chloride 0.9% 250 ml @ 0.03 MCG/KG/MIN 1. 295 mls/hr IV .Q24H BRIDGETT Rx#:[id number] Oral 200 560 Output: Chest Tube Drainage 40 20 Chest Tube Left Lateral 40 20 Chest Urine 5 0 Other: Voiding Method Indwelling Catheter Indwelling Catheter # Bowel Movements 1 - Labs CBC & Chem 7: 01/26/24 04:24 01/26/24 04:24 Labs: Abnormal Lab Results - Last 24 Hours (Table) 01/26/24 01/26/24 Range/Units 04:24 04:24 RBC 2.60 L (4.30-5.90) m/uL Hgb 8.0 L (13.0-17.5) gm/dL Hct 25.6 L (39.0-53.0) % RDW 17.1 H (11.5-15.5) % Plt Count 63 L (150-450) k/uL Sodium 125 L (137-145) mmol/L Carbon Dioxide 16 L (22-30) mmol/L BUN 41 H (9-20) mg/dL Creatinine 1.74 H (0.66-1.25) mg/dL Glucose 117 H (74-99) mg/dL Calcium 7.6 L (8.4-10.2) mg/dL Microbiology - Last 24 Hours (Table) 01/21/24 12:00 Anaerobic Culture - Final Ascites Fluid 01/21/24 12:00 Gram Stain - Final Ascites Fluid Body Fluid Culture - Final 01/24/24 08:59 Blood Culture Gram Stain - Preliminary Blood Blood Culture - Preliminary Presumptive MRSA
[2024-01-26] MEDS ORDERED: VANCOMYCIN TROUGH DUE 1 EACH MISC MISCELLANE ONE (20:00)
[2024-01-27 06:28] LABS: African American GFR (CKD) 41 (>60 ml/min/1.73 sqM); Anion Gap 7 mmol/L; Blood Urea Nitrogen 43 mg/dL (9-20); Calcium 7.4 mg/dL (8.4-10.2); Carbon Dioxide 23 mmol/L (22-30); Chloride 97 mmol/L (98-107); Glucose 117 mg/dL (74-99); Non-African American GFR(CKD) 36 (>60 ml/min/1.73 sqM); Potassium 3.9 mmol/L (3.5-5.1); Sodium 127 mmol/L (137-145)
[2024-01-27 06:29] LABS: Anisocytosis Slight; Basophils % (A) 0 %; Eosinophils # (A) 0.1 k/uL (0-0.7); Eosinophils % (A) 1 %; HGB 8.4 gm/dL (13.0-17.5); Hypochromasia Slight; Lymphocytes # (A) 0.4 k/uL (1.0-4.8); Lymphocytes % (A) 4 %; MCHC 32.4 g/dL (31.0-37.0); MCV 95.7 fL (80.0-100.0); Macrocytosis Slight; Mean Platelet Volume 8.7; Monocytes # (A) 0.8 k/uL (0-1.0); Monocytes % (A) 9 %; Neutrophils # (A) 7.6 k/uL (1.3-7.7); Neutrophils % (A) 82 %; RBC 2.71 m/uL (4.30-5.90); RDW 17.6 % (11.5-15.5); WBC 9.3 k/uL (3.8-10.6)
[2024-01-27 06:53] LABS: Platelet Count 55 k/uL (150-450)
--- NOTE | 2024-01-27 07:23 | P.PN ---
Subjective Progress Note Date: 01/27/24 Principal diagnosis: Large pericardial effusion without tamponade physiology, MRSA bacteremia, atrial fibrillation, hypotension requiring vasopressor use, hyponatremia, SIADH, acute kidney injury, nonanion gap metabolic acidosis, hepatorenal syndrome, , multiple recent falls. History of chronic alcoholic hepatitis with liver cirrhosis and weekly paracentesis, hypertension, pancreatitis, sepsis, previous alcohol abuse with cessation 7 years ago, umbilical hernia, lifelong non-smoker POD #2 echo guided pericardial drain insertion with removal of 480 mL serosanguineous pericardial fluid The patient was seen and examined this morning lying in bed in no acute distress in the intensive care unit. He remains in atrial fibrillation but better controlled with heart rate in the 90s, blood pressure improved with SBP low 100s, remains on IV levo which has been decreased since yesterday. Pericardial drain in place and connected to atrium, total 30 mL serosanguineous fluid in the last 24 hours. Repeat limited echo demonstrates normal LV function and trace to small posterior effusion remaining. Attempted to draw pericardial fluid yesterday to send for culture, unable. Labs reviewed, WBC 9.3, hemoglobin 8.4, platelet count down to 55,000, sodium 127, creatinine up to 1.93. Antibiotics switched to daptomycin per infectious disease. Patient remains on sodium bicarb drip as well as sodium bicarb oral, and oral Lopressor and midodrine. Patient denies any pain or shortness of breath although does look like he's doing some abdominal breathing. Keeps asking when he can go home. Internal medicine and nephrology discussed possibility of hemodialysis with patient, daughter. Patient has had no urine output in the last 24 hours. Objective - Vital Signs Vital signs: Vital Signs Temp 98.0 F 01/27/24 04:00 Pulse 96 01/27/24 07:00 Resp 16 01/27/24 07:00 BP 103/48 01/27/24 07:00 Pulse Ox 94 L 01/27/24 07:00 FiO2 Intake & Output 01/26/24 01/27/24 01/27/24 18:59 06:59 18:59 Intake Total 3129.373 1098.444 Output Total 20 12 Balance 3109.373 1086.444 Weight 93.2 kg Intake: IV 2530 920 DAPTOmycin 550 mg In 100 Sodium Chloride 0.9% 50 ml @ 100 mls/hr IVPB Q24HR BRIDGETT Rx#:[id number] Dextrose 5% in Water 1, 1300 800 000 ml @ 100 mls/hr IV . [id number] BRIDGETT with Sodium Bicarb (1 Meq/ml) 150 ml Rx#:[id number] Normal Saline as KVO @ 130 120 10mL/hr Sodium Chloride 0.9% 1, 1000 000 ml @ 1000 mls/hr IV ONCE ONE Rx#:[id number] Intake, IV Titration 39.373 178.444 Amount Norepinephrine 32 mg In 39.373 178.444 Sodium Chloride 0.9% 250 ml @ 0.03 MCG/KG/MIN 1. 295 mls/hr IV .Q24H BRIDGETT Rx#:[id number] Oral 560 Output: Chest Tube Drainage 20 12 Chest Tube Left Lateral 20 12 Chest Urine 0 0 Other: Voiding Method Indwelling Catheter Indwelling Catheter # Bowel Movements 1 1 - Exam CONSTITUTIONAL: Appears comfortable, cooperative, no acute distress RESPIRATORY: Lungs sounds with expiratory wheezes present bilaterally. Respirations even, nonlabored although does appear to be abdominal breathing. Currently on room air with oxygen saturation 93%, per nursing patient is occasionally requiring minimal oxygen CARDIOVASCULAR: S1, S2 present. Irregular rate and rhythm, atrial fibrillation on telemetry. Palpable peripheral pulses bilaterally. Bilateral lower extremity follows scrotal edema present. No calf pain or tenderness noted GASTROINTESTINAL: Abdomen soft, nontender, nondistended. Umbilical hernia present. Active bowel sounds present 4 quadrants. Tolerating diet. Positive bowel movement this morning GENITOURINARY: Cornell present, no output in the last 24 hours INTEGUMENTARY: Skin is warm and dry NEUROLOGIC: Cranial nerves II through XII intact MUSKULOSKELETAL: Able to move all extremities, strength equal bilaterally PSYCHIATRIC: Alert and oriented to person, place, confused INVASIVE LINES AND TUBES: Left-sided pericardial drain present and connected to continuous wall suction, 30 mL serosanguineous output in the last 24 hours - Allied health notes Allied health notes reviewed: nursing - Labs CBC & Chem 7: 01/27/24 05:47 01/27/24 05:47 Labs: Abnormal Lab Results - Last 24 Hours (Table) 01/27/24 01/27/24 Range/Units 05:47 05:47 RBC 2.71 L (4.30-5.90) m/uL Hgb 8.4 L (13.0-17.5) gm/dL Hct 26.0 L (39.0-53.0) % RDW 17.6 H (11.5-15.5) % Plt Count 55 L (150-450) k/uL Lymphocytes # 0.4 L (1.0-4.8) k/uL Sodium 127 L (137-145) mmol/L Chloride 97 L (98-107) mmol/L BUN 43 H (9-20) mg/dL Creatinine 1.93 H (0.66-1.25) mg/dL Glucose 117 H (74-99) mg/dL Calcium 7.4 L (8.4-10.2) mg/dL Microbiology - Last 24 Hours (Table) 01/26/24 04:24 Blood Culture Gram Stain - Preliminary Blood Blood Culture - Preliminary Molecular ID 01/21/24 12:00 Anaerobic Culture - Final Ascites Fluid 01/21/24 12:00 Gram Stain - Final Ascites Fluid Body Fluid Culture - Final 01/24/24 08:59 Blood Culture Gram Stain - Preliminary Blood Blood Culture - Preliminary Presumptive MRSA - Imaging and Cardiology Chest x-ray: image reviewed Assessment and Plan Assessment: Large pericardial effusion without tamponade physiology found on transthoracic echocardiogram, status post placement of pericardial drain MRSA bacteremia, blood cultures from January 21 and January 23 positive, currently on daptomycin Atrial fibrillation, currently on low-dose beta-nicki Hypotension requiring vasopressor use, currently on levo, midodrine Hyponatremia, SIADH Acute kidney injury Nonanion gap metabolic acidosis, currently on sodium bicarb drip and oral sodium bicarb Hepatorenal syndrome, currently on Sandostatin, IV Lasix stopped History of multiple recent falls without loss of consciousness Medical debility History of chronic alcoholic hepatitis with liver cirrhosis and weekly paracentesis History of hypertension History of pancreatitis History of sepsis Previous alcohol abuse with cessation 7 years ago Umbilical hernia, according to patient recommendation for surveillance, no surgery Lifelong non-smoker Plan: Pericardial drain discontinued without incident Wean pressors as tolerated Antibiotics per infectious disease A-fib management per cardiology Rest of medical management per spinning operator, cardiology, nephrology, GI, infectious disease Will see again on an as needed basis. Please contact us with any questions
--- NOTE | 2024-01-27 08:51 | XR ---
EXAMINATION TYPE: XR chest 1V portable DATE OF EXAM: 01/27/2024 Comparison: 01/26/2024 Clinical History: 63-year-old male post pericardiocentesis Findings: Cardiac/pericardiac silhouette remains mildly enlarged. Diffuse interstitial patchy opacities persist . Pericardial catheter seems to be present at the mid lower chest and left base. Impression: 1. Pericardial catheter. Similar borderline to mildly enlarged cardiac/pericardiac silhouette. 2. Unchanged bilateral interstitial and patchy opacities. [facility], , 01/27/2024 8:48 AM
--- NOTE | 2024-01-27 09:24 | P.PN ---
Subjective Progress Note Date: 01/27/24 The patient is a 63-year-old male with multiple comorbid conditions who is currently admitted with severe hyponatremia and liver failure. Cardiology has been consulted for new onset of atrial fibrillation. Patient was also found to have a large pericardial effusion, where on January 24 pericardiocentesis was performed removing 480 milliliters of serosanguineous fluid followed by pericardial drain. Drain has been discontinued this morning. According to CV surgery note they were unable to send fluid for culture. Patient was interviewed and examined resting comfortably in bed this morning. Patient denies any chest pain or difficulty breathing. He repeatedly asks for water. GENERAL: Ill-appearing, pale, in no acute distress. NECK: Supple without JVD or thyromegaly. LUNGS: Breath sounds clear to auscultation bilaterally. Respiration equal and unlabored. No wheezes, rales or rhonchi. HEART: Irregular rate and rhythm. Soft systolic murmur. No rubs or gallops. S1 and S2 heard. EXTREMITIES: Normal range of motion, no edema. No clubbing or cyanosis. Peripheral pulses intact and strong. TELEMETRY: Atrial fibrillation with heart rates in the 90s LABS: WBC 9.3, hemoglobin 8.4, hematocrit 26.0, platelet 55, sodium 127, potassium 3.9, BUN 43, creatinine 1.93 IMPRESSION: Pericardial effusion, status post pericardiocentesis and drain placement MRSA bacteremia New onset of atrial fibrillation, rate controlled Hypotension, currently on vasopressors Hyponatremia, SIADH Acute kidney injury Valvular heart disease, moderate mitral and aortic regurgitation History of liver cirrhosis, weekly paracentesis PLAN: Resume anticoagulation as recommended by CV surgery as pericardial drain has been removed Continue to wean vasopressors Medical management for possible endocarditis as he is not stable enough for NICOLE Further recommendations to be based upon clinical course I am dictating on behalf of Dr Trevor Diaz's history/physical and assessment/plan. Objective - Vital Signs Vital signs: Vital Signs Temp 98.0 F 01/27/24 04:00 Pulse 96 01/27/24 07:00 Resp 16 01/27/24 07:00 BP 103/48 01/27/24 07:00 Pulse Ox 94 L 01/27/24 07:00 FiO2 Intake & Output 01/26/24 01/27/24 01/27/24 18:59 06:59 18:59 Intake Total 3129.373 1098.444 Output Total 20 12 Balance 3109.373 1086.444 Weight 93.2 kg Intake: IV 2530 920 DAPTOmycin 550 mg In 100 Sodium Chloride 0.9% 50 ml @ 100 mls/hr IVPB Q24HR BR[facility]T Rx#:[id number] Dextrose 5% in Water 1, 1300 800 000 ml @ 100 mls/hr IV . [id number] BR[facility]GETT with Sodium Bicarb (1 Meq/ml) 150 ml Rx#:[id number] Normal Saline as KVO @ 130 120 10mL/hr Sodium Chloride 0.9% 1, 1000 000 ml @ 1000 mls/hr IV ONCE ONE Rx#:[id number] Intake, IV Titration 39.373 178.444 Amount Norepinephrine 32 mg In 39.373 178.444 Sodium Chloride 0.9% 250 ml @ 0.03 MCG/KG/MIN 1. 295 mls/hr IV .Q24H BRIDGETT Rx#:[id number] Oral 560 Output: Chest Tube Drainage 20 12 Chest Tube Left Lateral 20 12 Chest Urine 0 0 Other: Voiding Method Indwelling Catheter Indwelling Catheter # Bowel Movements 1 1 - Labs CBC & Chem 7: 01/27/24 05:47 01/27/24 05:47 Labs: Abnormal Lab Results - Last 24 Hours (Table) 01/27/24 01/27/24 Range/Units 05:47 05:47 RBC 2.71 L (4.30-5.90) m/uL Hgb 8.4 L (13.0-17.5) gm/dL Hct 26.0 L (39.0-53.0) % RDW 17.6 H (11.5-15.5) % Plt Count 55 L (150-450) k/uL Lymphocytes # 0.4 L (1.0-4.8) k/uL Sodium 127 L (137-145) mmol/L Chloride 97 L (98-107) mmol/L BUN 43 H (9-20) mg/dL Creatinine 1.93 H (0.66-1.25) mg/dL Glucose 117 H (74-99) mg/dL Calcium 7.4 L (8.4-10.2) mg/dL Microbiology - Last 24 Hours (Table) 01/26/24 04:24 Blood Culture Gram Stain - Preliminary Blood Blood Culture - Preliminary Molecular ID 01/21/24 12:00 Anaerobic Culture - Final Ascites Fluid 01/21/24 12:00 Gram Stain - Final Ascites Fluid Body Fluid Culture - Final 01/24/24 08:59 Blood Culture Gram Stain - Preliminary Blood Blood Culture - Preliminary Presumptive MRSA
[2024-01-27] MEDS: SODIUM CHLORIDE 0.9% 1,000 ML IV SCH (09:30)
--- NOTE | 2024-01-27 10:17 | P.PN ---
Subjective Patient is seen in follow-up for acute kidney injury. Remains oliguric. Improved. On Levophed. Currently on bicarb drip. Acidosis improved. Co nfused. Vital signs are stable. On vasopressor support. General: No acute distress. HEENT: Head exam is unremarkable. LUNGS: No audible rhonchi or wheezes. HEART: Rate and Rhythm are regular. ABDOMEN: Mild distention. Soft. Hernia noted. EXTREMITITES: No edema. Objective - Vital Signs Vital signs: Vital Signs Temp 98.0 F 01/27/24 04:00 Pulse 96 01/27/24 07:00 Resp 16 01/27/24 07:00 BP 103/48 01/27/24 07:00 Pulse Ox 94 L 01/27/24 07:00 FiO2 Intake & Output 01/26/24 01/27/24 01/27/24 18:59 06:59 18:59 Intake Total 3129.373 1098.444 Output Total 20 12 Balance 3109.373 1086.444 Weight 93.2 kg Intake: IV 2530 920 DAPTOmycin 550 mg In 100 Sodium Chloride 0.9% 50 ml @ 100 mls/hr IVPB Q24HR [facility] Rx#:[id number] Dextrose 5% in Water 1, 1300 800 000 ml @ 100 mls/hr IV . [id number] [facility] with Sodium Bicarb (1 Meq/ml) 150 ml Rx#:[id number] Normal Saline as KVO @ 130 120 10mL/hr Sodium Chloride 0.9% 1, 1000 000 ml @ 1000 mls/hr IV ONCE ONE Rx#:[id number] Intake, IV Titration 39.373 178.444 Amount Norepinephrine 32 mg In 39.373 178.444 Sodium Chloride 0.9% 250 ml @ 0.03 MCG/KG/MIN 1. 295 mls/hr IV .Q24H [facility] Rx#:[id number] Oral 560 Output: Chest Tube Drainage 20 12 Chest Tube Left Lateral 20 12 Chest Urine 0 0 Other: Voiding Method Indwelling Catheter Indwelling Catheter # Bowel Movements 1 1 - Labs CBC & Chem 7: 01/27/24 05:47 01/27/24 05:47 Labs: Abnormal Lab Results - Last 24 Hours (Table) 01/27/24 01/27/24 Range/Units 05:47 05:47 RBC 2.71 L (4.30-5.90) m/uL Hgb 8.4 L (13.0-17.5) gm/dL Hct 26.0 L (39.0-53.0) % RDW 17.6 H (11.5-15.5) % Plt Count 55 L (150-450) k/uL Lymphocytes # 0.4 L (1.0-4.8) k/uL Sodium 127 L (137-145) mmol/L Chloride 97 L (98-107) mmol/L BUN 43 H (9-20) mg/dL Creatinine 1.93 H (0.66-1.25) mg/dL Glucose 117 H (74-99) mg/dL Calcium 7.4 L (8.4-10.2) mg/dL Microbiology - Last 24 Hours (Table) 01/26/24 04:24 Blood Culture Gram Stain - Preliminary Blood Blood Culture - Preliminary Molecular ID 01/21/24 12:00 Anaerobic Culture - Final Ascites Fluid 01/21/24 12:00 Gram Stain - Final Ascites Fluid Body Fluid Culture - Final 01/24/24 08:59 Blood Culture Gram Stain - Preliminary Blood Blood Culture - Preliminary Presumptive MRSA Assessment and Plan Plan: Assessment: 1. Acute kidney injury secondary to ATN secondary to septic shock. Creatinine 1.93 today. Oliguric. 2. Septic shock secondary to MRSA bacteremia. 3. Hyponatremia secondary to acute kidney injury. Improving. 4. Metabolic acidosis secondary to acute kidney injury maintained on bicarb drip. Better. 5. History of liver cirrhosis requiring weekly paracentesis. Last paracentesis January 21, 2024 with 3.2 L drained. 6. Moderate mitral and aortic regurgitation. 7. Pericardial effusion status post pericardial drain. Plan: Stop bicarb drip. Start normal saline. Wean Levophed as able. Patient remains oliguric and also now confused. Initiate renal replacement therapy. Check phosphorus level. Consult vascular surgery for temporary dialysis catheter placement. Plan for first treatment of hemodialysis today and second treatment tomorrow. Will use low blood and dialysate flows. Case was discussed with patient's daughter over the phone yesterday who was agreeable to proceed with dialysis if needed.
[2024-01-27 10:59] VITALS: BMI 28.6
--- NOTE | 2024-01-27 12:39 | P.GSCN ---
History of Present Illness History of present illness: 63-year-old gentleman consulted for placement of urgent dialysis catheter left femoral approach. Patient has history of acute kidney injury, history of septic shock history of liver cirrhosis seen in the intensive care unit Chest bilateral rhonchi abdomen soft nontender patient has a umbilical hernia Vascular femorals are 1+ bilateral patient has a right triple-lumen catheter we will place dialysis catheter left femoral approach skin complication discussed Past Medical History Past Medical History: Hypertension, Liver Disease, Pneumonia Additional Past Medical History / Comment(s): Liver cirrhosis, splenomegaly, pa ncreatitis-pt states pancreatitis was side effect from Lisinopril, pt denies hx of alcoholism/drinking heavily, cellulitis with sepsis, ASCITES History of Any Multi-Drug Resistant Organisms: MRSA Year Discovered:: 01/21/24 MDRO Source:: blood Past Surgical History: No Surgical Hx Reported Additional Past Surgical History / Comment(s): dental extraction, cataract bilateral - Pt states he was awake for both procedure and has never had general anesthesia Past Anesthesia/Blood Transfusion Reactions: No Reported Reaction, Unable to Obtain Additional Past Anesthesia/Blood Transfusion Reaction / Comm: Pt has never had anesthesia Past Psychological History: No Psychological Hx Reported Smoking Status: Never smoker Past Alcohol Use History: None Reported Past Drug Use History: None Reported - Past Family History Mother Family Medical History: Hypertension Additional Family Medical History / Comment(s): Mother lived to be 91 yrs old. Father Family Medical History: CVA/TIA Additional Family Medical History / Comment(s): Father of a CVA at the age of 65yrs. Son(s) Family Medical History: No Reported History Daughter(s) Family Medical History: No Reported History Medications and Allergies Home Medications Medication Instructions Recorded Confirmed Type Pantoprazole [Protonix] 40 mg PO AC-BRKFST tab 06/22/21 01/20/24 Rx Midodrine [ProAmatine] 5 mg PO TID 07/13/21 01/20/24 History Folic Acid 1 mg PO DAILY tab 07/18/21 01/20/24 Rx Potassium Chloride ER [K-Dur 20] 20 meq PO DAILY tablet 07/18/21 01/20/24 Rx Albuterol Inhaler [Ventolin Hfa 2 puff INHALATION RT-TID PRN 08/06/23 01/20/24 History Inhaler] Furosemide [Lasix] 40 mg PO DAILY tab 08/27/23 01/20/24 Rx Sodium Chloride Tab 1 gm PO BID 09/17/23 01/20/24 History traZODone HCL 150 mg PO HS 12/31/23 01/20/24 History Spironolactone [Aldactone] 50 mg PO BID #60 tab 01/05/24 01/20/24 Rx Allergies Allergy/AdvReac Type Severity Reaction Status Date / Time lisinopril AdvReac causes Verified 01/20/24 19:50 pancreatitis Surgical - Exam Vital Signs Temp Pulse Resp BP Pulse Ox 98.8 F 130 H 20 118/90 100 01/20/24 19:04 01/20/24 19:04 01/20/24 19:04 01/20/24 19:04 01/20/24 19:04 Results - Labs 01/27/24 05:47 01/27/24 05:47 Abnormal Lab Results - Last 24 Hours (Table) 01/27/24 01/27/24 Range/Units 05:47 05:47 RBC 2.71 L (4.30-5.90) m/uL Hgb 8.4 L (13.0-17.5) gm/dL Hct 26.0 L (39.0-53.0) % RDW 17.6 H (11.5-15.5) % Plt Count 55 L (150-450) k/uL Lymphocytes # 0.4 L (1.0-4.8) k/uL Sodium 127 L (137-145) mmol/L Chloride 97 L (98-107) mmol/L BUN 43 H (9-20) mg/dL Creatinine 1.93 H (0.66-1.25) mg/dL Glucose 117 H (74-99) mg/dL Calcium 7.4 L (8.4-10.2) mg/dL Microbiology - Last 24 Hours (Table) 01/24/24 08:59 Blood Culture Gram Stain - Final Blood Blood Culture - Final Methicillin resist S. aureus 01/26/24 04:24 Blood Culture Gram Stain - Preliminary Blood Blood Culture - Preliminary Molecular ID 01/21/24 12:00 Anaerobic Culture - Final Ascites Fluid 01/21/24 12:00 Gram Stain - Final Ascites Fluid Body Fluid Culture - Final Diabetes panel 01/27/24 Range/Units 05:47 Sodium 127 L (137-145) mmol/L Potassium 3.9 (3.5-5.1) mmol/L Chloride 97 L (98-107) mmol/L Carbon Dioxide 23 (22-30) mmol/L BUN 43 H (9-20) mg/dL Creatinine 1.93 H (0.66-1.25) mg/dL Glucose 117 H (74-99) mg/dL Calcium 7.4 L (8.4-10.2) mg/dL Calcium panel 01/27/24 Range/Units 05:47 Calcium 7.4 L (8.4-10.2) mg/dL Pituitary panel 01/27/24 Range/Units 05:47 Sodium 127 L (137-145) mmol/L Potassium 3.9 (3.5-5.1) mmol/L Chloride 97 L (98-107) mmol/L Carbon Dioxide 23 (22-30) mmol/L BUN 43 H (9-20) mg/dL Creatinine 1.93 H (0.66-1.25) mg/dL Glucose 117 H (74-99) mg/dL Calcium 7.4 L (8.4-10.2) mg/dL Adrenal panel 01/27/24 Range/Units 05:47 Sodium 127 L (137-145) mmol/L Potassium 3.9 (3.5-5.1) mmol/L Chloride 97 L (98-107) mmol/L Carbon Dioxide 23 (22-30) mmol/L BUN 43 H (9-20) mg/dL Creatinine 1.93 H (0.66-1.25) mg/dL Glucose 117 H (74-99) mg/dL Calcium 7.4 L (8.4-10.2) mg/dL
--- NOTE | 2024-01-27 12:41 | P.PCN ---
Description of Procedure: Preop diagnosis acute renal failure Postop the same Procedure ultrasound-guided 30 cm dialysis catheter placed left femoral vein approach Left groin was prepped and draped in Prestel manner 1% lidocaine were infiltrated ultrasound-guided micropuncture introduced left femoral vein micropuncture guide was passed. Then 5 4 Danish sheath was placed on the top of the guidewire then we passed a regular guidewire without any resistance. Then dilator was advanced up the guidewire and replaced triple-lumen dialysis catheter flushed with heparin saline hep-locked secured with 3-0 nylon patient tarted the procedure well
--- NOTE | 2024-01-27 13:24 | P.PN ---
Subjective Progress Note Date: 01/27/24 Principal diagnosis: Septic shock with MRSA bacteremia Patient is a 63-year-old male with past medical history significant for liver cirrhosis, abdominal ascites with weekly paracentesis, pancreatitis, alcoholism, among other things. Of note, patient had a recent hospitalization August 2023 where he was weak and confused and found to have severe hyponatremia. He did require 3% sodium infusion and brief ICU admission at that time. Patient sent in from [facility] last night. Reportedly, had multiple falls over the past couple days. Last night, he was found on the ground. Patient reports that he may have been on the ground for 2 to 3 hours. States that his legs just gave out. Denies losing consciousness. Denies losing hitting his head. States he landed on his right shoulder, which is a little sore. No limitation in motion or obvious trauma. skin tears noted bilateral upper extremitites. He does appear to be in a positive fluid balance. Does take Lasix, Aldactone, and salt tablets on outpatient basis. Also, undergoes weekly paracentesis by IR, and his next paracentesis is scheduled for tomorrow. His abdomen is full and distended. Nontender. He has severe bilateral lower extremity edema. On arrival to the emergency department he was noted to be hypotensive, has missed all 3 of his doses of midodrine yesterday. CBC: WBC count 15.9, hemoglobin 9.5, hematocrit 29.7, platelets 155. Coagulation profile includes a PT of 15.7, INR of 1.5, APTT 33.6. CMP on arrival: Sodium 113, potassium 5.1, chloride 92, serum bicarb 13, BUN 18, creatinine 0.99, glucose 114. LFTs unremarkable. Urinalysis showing moderate leukocytes and occasional bacteria. Patient denies any troubles or difficulty urinating, no dysuria, no fevers, flank pain, hematuria. No polyuria or excessive water intake. No notable fluid losses. Generalized weakness and falls are chief symptoms. No confusion, seizures, coma. Hypothyroidism and adrenal insufficiency previously ruled out. Nephrology has been consulted, is requesting this patient be monitored in the intensive care unit in case he needs 3% hypertonic saline. Most recent sodium is 112, however, the Lasix is still not been given due to hypotension. On 01/22/2024, patient is being seen for a follow-up. Awake and alert. No significant respiratory distress. The patient is currently on room air oxygen with a pulse ox of 98%. Abdominal paracentesis was done yesterday and the fluid was negative for infection. Culture still pending. Earlier this morning, the patient is on hypertonic saline 3% which is running at 20 cc an hour. Sodium level was 116 and subsequently upon 918. He has 1.07. The patient has a serum bicarb of 14. Patient will be given IV bicarb 100 mL equivalents total IV and she will be started on oral bicarb supplements. Urine output is in order of 10 cc an hour. Blood culture was positive for MRSA. Rocephin was discontinued and the patient was started on vancomycin. The patient is also on midodrine. The patient is on octreotide. 01/23/2024, the patient is being seen for a follow-up. The patient is awake and alert and the patient remains on room air oxygen. He did have staff aureus bacteremia the patient is currently on vancomycin. He remains hypotensive and the patient is currently on low-dose norepinephrine which is running at 0.08 mcg/kg/min. The patient remains on hypertonic saline 3% running at 20 cc an hour and the patient's sodium level is at 121. He does have some ascites. Urine output is in order of 20 cc an hour. White cell count of 22.9 with a hemoglobin 9.2. No evidence of any GI bleeding. No evidence of any encephalopathy. BUN is 27 with a creatinine of 1.1 and a potassium of is at 4.5. Remains on IV Rocephin and vancomycin. Remains on midodrine. Remains on pressors. Remains on octreotide. On 01/24/2024, the patient remains, comfortable on room air oxygen. He remains hypotensive as the patient was septic and the blood cultures positive for gram- positive cocci in clusters suggestive of MRSA and the patient remains on vancomy osmin. The patient currently is on norepinephrine which is running at 0.08 mcg/kg/min. Hypertonic saline was discontinued and the patient is currently on KVO IV fluids. Echocardiogram showed a ejection fraction of 50 to 55%. Large pericardial effusion without tamponade physiology. No clear indication for any vegetation at this point in time based on the routine transthoracic echocardiogram. The white cell count of 13.6, hemoglobin is at 9 and a platelet count is 101. Sodium is at 122, BUN is 32 with a creatinine of 1.38, AST is 132, ALT 75 and alkaline phosphatase 122. Vancomycin trough is 34.5. Blood sugar is at 127. Repeat blood cultures will be obtained for today. No significant encephalopathy. No respiratory distress. He does have abdominal ascites with a large abdominal wall hernia also noted/umbilical hernia. On 01/25/2024, the patient is being seen for a follow-up. The patient is slightly confused on today's evaluation and urine output is low. He remains hypotensive on pressors and the patient is currently on norepinephrine running at the lower dose to support his blood pressure. Repeat blood cultures still positive for MRSA/gram-positive cocci and the patient remains on vancomycin. As noted, he has a large pericardial effusion without any tamponade. Cardiology and cardiothoracic surgery on the case. The patient will likely need a pericardiocentesis today. Meanwhile, no major edema lower extremities. Urine output is low. Is developed progressive worsening renal function the creatinine is up to 1.6. BUN 36. Sodium levels at 125. Bicarb level is down to 12. He remains on a bicarb infusion with half-normal saline and a total of 100 mEq of sodium bicarb. The white cell count of 13.7. Hemoglobin 8.5 and a platelet count of 85. proBNP level is 38,000. Vancomycin trough from yesterday was 24.5. He remains on room air oxygen. Patient seen today on 01/26/2024, remains in the ICU, still requiring significant amount of pressors he is on norepinephrine at 0.18 mcg/kg/min still receiving bicarb drip at 100 cc/h still on Sandostatin. Patient has received 2 units of fresh frozen plasma INR is 2.1 today. Patient underwent pericardiocentesis yesterday, 470 mL out, cultures on the fluid are pending. Cytology is pending. Patient is receiving treatment for MRSA sepsis and septic shock with bacteremia, cultures on the pericardial fluid are pending t echocardiogram showed no evidence of vegetations on the valves. Patient continues to have ascites intermittently and he has a large umbilical hernia. Urine output remains marginal WBC count is 9.2 hemoglobin is 8 sodium is 125 potassium 4.0 chloride 101 bicarb is 16 BUN is 41 creatinine 1.74. Patient remains oliguric and spite of fluids, bicarb, and norepinephrine. Patient was seen today on 01/27/2024, patient remains in the ICU, still requiring second amount of pressors. He is on norepinephrine at 0.14 mcg/kg/min, remains on bicarb drip at 100 cc/h seen by nephrology today, and planning hemodialysis/renal replacement therapy. Patient will have a hemodialysis catheter placed today. Blood cultures continue to show positive MRSA, even on the blood cultures done yesterday after few days of being on treatment. Hence patient will eventually need a transesophageal echocardiogram, this is most likely a picture of endocarditis with MRSA infection unless proven otherwise. Patient is being followed by cardiology but for some reason it is felt that the patient is not stable enough for transesophageal echocardiogram we are in the process of tapering his norepinephrine as tolerated. In the meantime the patient remains on daptomycin for his presumptive endocarditis/MRSA bacteremia persistent. Labs today showed WBC count of 9.3 hemoglobin 8.4 sodium is 127 potassium 3.9 BUN is 43 creatinine 1.93 BNP level remains high at 38,800 x-ray today showed evidence of cardiomegaly, small pleural effusions, and some component of interstitial edema with pulmonary vasculature prominence Objective - Vital Signs Vital signs: Vital Signs Temp 97.1 F L 01/27/24 08:00 Pulse 96 01/27/24 10:15 Resp 16 01/27/24 10:15 BP 103/42 01/27/24 10:15 Pulse Ox 96 01/27/24 10:15 FiO2 Intake & Output 01/26/24 01/27/24 01/27/24 18:59 06:59 18:59 Intake Total 3129.373 1098.444 315 Output Total 20 12 2 Balance 3109.373 1086.444 313 Weight 93.2 kg 93.2 kg Intake: IV 2530 920 240 DAPTOmycin 550 mg In 100 20 Sodium Chloride 0.9% 50 ml @ 100 mls/hr IVPB Q24HR [facility] Rx#:[id number] Dextrose 5% in Water 1, 1300 800 200 000 ml @ 100 mls/hr IV . [id number] [facility] with Sodium Bicarb (1 Meq/ml) 150 ml Rx#:[id number] Normal Saline as KVO @ 130 120 20 10mL/hr Sodium Chloride 0.9% 1, 1000 000 ml @ 1000 mls/hr IV ONCE ONE Rx#:[id number] Intake, IV Titration 39.373 178.444 75 Amount Norepinephrine 32 mg In 39.373 178.444 Sodium Chloride 0.9% 250 ml @ 0.03 MCG/KG/MIN 1. 295 mls/hr IV .Q24H [facility] Rx#:[id number] Sodium Chloride 0.9% 1, 75 000 ml @ 75 mls/hr IV . [id number] [facility] Rx#:[id number] Oral 560 Output: Chest Tube Drainage 20 12 Chest Tube Left Lateral 20 12 Chest Urine 0 0 2 Other: Voiding Method Indwelling Catheter Indwelling Catheter Indwelling Catheter # Bowel Movements 1 1 - Exam GENERAL EXAM: Alert, 63-year-old white male, on room air with O2 sat is 93% HEAD: Normocephalic and atraumatic EYES: Normal reaction of pupils, equal size. NOSE: Clear with pink turbinates. THROAT: No erythema or exudates. NECK: No masses, no JVD. CHEST: No chest wall deformity. LUNGS: Fine crackles at the bases no rhonchi no wheezes CVS: Distant S1 and S2 normal 2/6 systolic murmur throughout the precordium ABDOMEN: Positive ascites, nontender, large umbilical hernia noted. SKIN: No rashes. Bilateral upper extremity skin tears. CENTRAL NERVOUS SYSTEM: Alert oriented x 3 no gross focal neurologic deficit EXTREMITIES: There is bilateral 3+ lower extremity edema. No clubbing, or cyanosis. Peripheral pulses are intact. - Labs CBC & Chem 7: 01/27/24 05:47 01/27/24 05:47 Labs: Abnormal Lab Results - Last 24 Hours (Table) 01/27/24 01/27/24 Range/Units 05:47 05:47 RBC 2.71 L (4.30-5.90) m/uL Hgb 8.4 L (13.0-17.5) gm/dL Hct 26.0 L (39.0-53.0) % RDW 17.6 H (11.5-15.5) % Plt Count 55 L (150-450) k/uL Lymphocytes # 0.4 L (1.0-4.8) k/uL Sodium 127 L (137-145) mmol/L Chloride 97 L (98-107) mmol/L BUN 43 H (9-20) mg/dL Creatinine 1.93 H (0.66-1.25) mg/dL Glucose 117 H (74-99) mg/dL Calcium 7.4 L (8.4-10.2) mg/dL Microbiology - Last 24 Hours (Table) 01/24/24 08:59 Blood Culture Gram Stain - Final Blood Blood Culture - Final Methicillin resist S. aureus 01/26/24 04:24 Blood Culture Gram Stain - Preliminary Blood Blood Culture - Preliminary Molecular ID 01/21/24 12:00 Anaerobic Culture - Final Ascites Fluid 01/21/24 12:00 Gram Stain - Final Ascites Fluid Body Fluid Culture - Final Assessment and Plan Assessment: Impression: Septic shock secondary to MRSA bacteremia and pericardial effusion without tamponade findings. Transthoracic echocardiogram showed no evidence of vegetations, however the patient would likely need a transesophageal echo to confirm or rule out endocarditis. Based on the persistence of bacteremia, this is an endocarditis picture on (otherwise. Hypotension, secondary to septic shock, still requiring antibiotics and requiring pressors/norepinephrine Severe hyponatremia, improving. Acute kidney injury/acute tubular necrosis secondary to sepsis septic shock and hypotension Liver cirrhosis with abdominal ascites and weekly paracentesis, last paracentesis was done 01/21/2020 for a total of 3 to 4 L of fluid was aspirated. Patient is known to have history of alcoholism. Coagulopathy, secondary to above Acute leukocytosis, secondary to bacteremia Non-anion gap metabolic acidosis, currently on bicarb infusion improved, could consider stopping bicarb infusion Anemia of chronic disease History of pancreatitis Frequent falls Pericardial effusion without any tamponade physiology. Normal LV function Commendation: Continue to monitor in the ICU Continue hemodynamic support/pressors May require NICOLE, decision to be made by cardiology felt to be not stable requiring pressors at present but sooner later the patient will likely need to have NICOLE. Continue antibiotics /daptomycin Continue oral bicarb, Patient will be placed on hemodialysis sometime later today Still investigate for the primary source is his MRSA bacteremia this is likely endocarditis unless were otherwise Consider another paracentesis for his ascites [facility] is following for his acute kidney injury, planning to start renal replacement therapy Patient remains critically ill Will continue to monitor in the ICU and critical care time is over 30-minute Time with Patient: Greater than 30
--- NOTE | 2024-01-27 13:46 | P.PN ---
Subjective Progress Note Date: 01/26/24 Principal diagnosis: Reason for follow-up is MRSA bacteremia Patient is a 63-year-old male with a past medical history significant for hypertension, cirrhosis of the liver pancreatitis pneumonia patient was admitted to the hospital for frequent falls and low sodium also have MRSA bacteremia probably this consultation echocardiogram did shows large pericardial effusion and the patient is status post pericardial window completed on 01/25/2024. On today's evaluation that is 01/26/2024, Patient is afebrile patient is currently on 2 L nasal cannula oxygen and denies having any shortness of breath, the patient denies any chest pain or significant cough, the patient denies any nausea vomiting did not have any abdominal pain and no diarrhea. Patient white count is normalized to 9.2, creat is 1.74 blood culture positive for MRSA Objective - Vital Signs Vital signs: Vital Signs Temp 98.5 F 01/26/24 08:00 Pulse 101 H 01/26/24 11:30 Resp 13 01/26/24 11:30 BP 99/57 01/26/24 11:30 Pulse Ox 92 L 01/26/24 11:30 FiO2 Intake & Output 01/25/24 01/26/24 01/26/24 18:59 06:59 18:59 Intake Total 2139.398 1734.761 3029.373 Output Total 625 45 0 Balance 1589.033 7823.143 1749.373 Weight 94.7 kg Intake: IV 120 1210 1650 DAPTOmycin 550 mg In 100 Sodium Chloride 0.9% 50 ml @ 100 mls/hr IVPB Q24HR [facility] Rx#:[id number] Dextrose 5% in Water 1, 1100 500 000 ml @ 100 mls/hr IV . [id number] [facility] with Sodium Bicarb (1 Meq/ml) 150 ml Rx#:[id number] Normal Saline as KVO @ 20 110 50 10mL/hr Sodium Chloride 0.45% 1, 100 000 ml @ 50 mls/hr IV . Q22H [facility] with Sodium Bicarb (1 Meq/ml) 100 ml Rx#:[id number] Sodium Chloride 0.9% 1, 1000 000 ml @ 1000 mls/hr IV ONCE ONE Rx#:[id number] Intake, IV Titration 981.398 156.143 39.373 Amount Dextrose 5% in Water 1, 700 100 000 ml @ 100 mls/hr IV . [id number] [facility] with Sodium Bicarb (1 Meq/ml) 150 ml Rx#:[id number] Norepinephrine 32 mg In 81.398 56.143 39.373 Sodium Chloride 0.9% 250 ml @ 0.03 MCG/KG/MIN 1. 295 mls/hr IV .Q24H [facility] Rx#:[id number] Sodium Chloride 0.45% 1, 200 000 ml @ 100 mls/hr IV . [id number] [facility] with Sodium Bicarb (1 Meq/ml) 150 ml Rx#:[id number] Oral 90 200 60 Blood Product 948 Ffp 24 Cpd Unit 319 [id number] Ffp 24 Cpd Unit 0 [id number] Output: Chest Tube Drainage 600 40 0 Chest Tube Left Lateral 600 40 0 Chest Urine 25 5 0 Other: Voiding Method Indwelling Catheter Indwelling Catheter Indwelling Catheter - Exam GENERAL DESCRIPTION: An elderly male lying in bed in no distress RESPIRATORY SYSTEM: Unlabored breathing , decreased breath sounds at bases HEART: S1 S2 regular rate and rhythm , ABDOMEN: Soft , no tenderness EXTREMITIES: No edema feet - Labs CBC & Chem 7: 01/27/24 05:47 01/27/24 05:47 Labs: Abnormal Lab Results - Last 24 Hours (Table) 01/25/24 01/26/24 01/26/24 Range/Units 14:17 04:24 04:24 RBC 2.60 L (4.30-5.90) m/uL Hgb 8.0 L (13.0-17.5) gm/dL Hct 25.6 L (39.0-53.0) % RDW 17.1 H (11.5-15.5) % Plt Count 63 L (150-450) k/uL Sodium 127 L 125 L (137-145) mmol/L Carbon Dioxide 13 L 16 L (22-30) mmol/L BUN 41 H (9-20) mg/dL Creatinine 1.74 H (0.66-1.25) mg/dL Glucose 117 H (74-99) mg/dL Calcium 7.6 L (8.4-10.2) mg/dL Microbiology - Last 24 Hours (Table) 01/21/24 12:00 Gram Stain - Final Ascites Fluid Body Fluid Culture - Final 01/24/24 08:59 Blood Culture Gram Stain - Preliminary Blood Blood Culture - Preliminary Presumptive MRSA Assessment and Plan (1) MRSA bacteremia Current Visit: Yes Status: Acute Code(s): R78.81 - BACTEREMIA; B95.62 - METHICILLIN RESIS STAPH INFCT CAUSING DISEASES CLASSD [id number] SNOMED Code(s): 54123692939534217 (2) Leukocytosis Current Visit: Yes Status: Acute Code(s): D72.829 - ELEVATED WHITE BLOOD CELL COUNT, UNSPECIFIED SNOMED Code(s): 221095029 (3) Skin tear Current Visit: Yes Status: Acute Code(s): SYG3948 - SNOMED Code(s): 193966662 Plan: 1patient with MRSA bacteremia in this patient presented to the hospital with fall did have some skin maceration noticed to have significant hyponatremia however patient did not have any fever during this admission did have elevated white count of chest x-ray was negative urine is positive however urine cultures came back negative source of this bacteremia is likely skin and soft tissue ho wever if any persistent bacteremia will need to rule out endovascular source he already has the echocardiogram did not show any vegetation and large effusion but no tamponade phenomena 2-patient did have persistent bacteremia highly suspicious for endovascular source would benefit from NICOLE 3-patient to continue with daptomycin and monitor clinical course closely Dictation was produced using [employer] dictation software. please excuse any grammatical, word or spelling errors. Time with Patient: Less than 30
--- NOTE | 2024-01-27 13:49 | P.PN ---
Subjective Progress Note Date: 01/27/24 Principal diagnosis: Reason for follow-up is MRSA bacteremia Patient is a 63-year-old male with a past medical history significant for hypertension, cirrhosis of the liver pancreatitis pneumonia patient was admitted to the hospital for frequent falls and low sodium also have MRSA bacteremia probably this consultation echocardiogram did shows large pericardial effusion and the patient is status post pericardial window completed on 01/25/2024. On today's evaluation that is 01/27/2024, patient has been afebrile, patient is breathing comfortably and is currently on 3 L current oxygen patient denies having any significant cough no chest pain, patient denies nausea vomiting or diarrhea and no abdominal pain. Patient white count normal at 9.3, creat is 1.93 blood culture from yesterday positive as well Objective - Vital Signs Vital signs: Vital Signs Temp 97.1 F L 01/27/24 08:00 Pulse 103 H 01/27/24 13:30 Resp 19 01/27/24 13:30 BP 100/60 01/27/24 13:30 Pulse Ox 100 01/27/24 13:30 FiO2 Intake & Output 01/26/24 01/27/24 01/27/24 18:59 06:59 18:59 Intake Total 3129.373 1098.444 565 Output Total 20 12 2 Balance 3109.373 1086.444 563 Weight 93.2 kg 93.2 kg Intake: IV 2530 920 270 DAPTOmycin 550 mg In 100 20 Sodium Chloride 0.9% 50 ml @ 100 mls/hr IVPB Q24HR [facility] Rx#:[id number] Dextrose 5% in Water 1, 1300 800 200 000 ml @ 100 mls/hr IV . [id number] [facility] with Sodium Bicarb (1 Meq/ml) 150 ml Rx#:[id number] Normal Saline as KVO @ 130 120 50 10mL/hr Sodium Chloride 0.9% 1, 1000 000 ml @ 1000 mls/hr IV ONCE ONE Rx#:[id number] Intake, IV Titration 39.373 178.444 270 Amount Norepinephrine 32 mg In 39.373 178.444 Sodium Chloride 0.9% 250 ml @ 0.03 MCG/KG/MIN 1. 295 mls/hr IV .Q24H [facility] Rx#:[id number] Sodium Chloride 0.9% 1, 270 000 ml @ 75 mls/hr IV . [id number] [facility] Rx#:[id number] Oral 560 25 Output: Chest Tube Drainage 20 12 Chest Tube Left Lateral 20 12 Chest Urine 0 0 2 Other: Voiding Method Indwelling Catheter Indwelling Catheter Indwelling Catheter # Bowel Movements 1 1 - Exam GENERAL DESCRIPTION: An elderly male lying in bed in no distress RESPIRATORY SYSTEM: Unlabored breathing , decreased breath sounds at bases HEART: S1 S2 regular rate and rhythm , ABDOMEN: Soft , no tenderness EXTREMITIES: No edema feet - Labs CBC & Chem 7: 01/27/24 05:47 01/27/24 05:47 Labs: Abnormal Lab Results - Last 24 Hours (Table) 01/27/24 01/27/24 Range/Units 05:47 05:47 RBC 2.71 L (4.30-5.90) m/uL Hgb 8.4 L (13.0-17.5) gm/dL Hct 26.0 L (39.0-53.0) % RDW 17.6 H (11.5-15.5) % Plt Count 55 L (150-450) k/uL Lymphocytes # 0.4 L (1.0-4.8) k/uL Sodium 127 L (137-145) mmol/L Chloride 97 L (98-107) mmol/L BUN 43 H (9-20) mg/dL Creatinine 1.93 H (0.66-1.25) mg/dL Glucose 117 H (74-99) mg/dL Calcium 7.4 L (8.4-10.2) mg/dL Microbiology - Last 24 Hours (Table) 01/24/24 08:59 Blood Culture Gram Stain - Final Blood Blood Culture - Final Methicillin resist S. aureus 01/26/24 04:24 Blood Culture Gram Stain - Preliminary Blood Blood Culture - Preliminary Molecular ID 01/21/24 12:00 Anaerobic Culture - Final Ascites Fluid Assessment and Plan (1) MRSA bacteremia Current Visit: Yes Status: Acute Code(s): R78.81 - BACTEREMIA; B95.62 - METHICILLIN RESIS STAPH INFCT CAUSING DISEASES CLASSD [facility] SNOMED Code(s): 94912960137319233 (2) Leukocytosis Current Visit: Yes Status: Acute Code(s): D72.829 - ELEVATED WHITE BLOOD CELL COUNT, UNSPECIFIED SNOMED Code(s): 531978404 (3) Skin tear Current Visit: Yes Status: Acute Code(s): TWE5374 - SNOMED Code(s): 193110377 Plan: 1patient with MRSA bacteremia in this patient presented to the hospital with fall did have some skin maceration noticed to have significant hyponatremia however patient did not have any fever during this admission did have elevated white count of chest x-ray was negative urine is positive however urine cultures came back negative source of this bacteremia is likely skin and soft tissue however if any persistent bacteremia will need to rule out endovascular source he already has the echocardiogram did not show any vegetation and large effusion but no tamponade phenomena 2-patient did have persistent bacteremia highly suspicious for endovascular source, currently waiting for NICOLE cardiology waiting for condition to stabilize before attempting the procedure 3-patient to continue with daptomycin, discussed with the pharmacist up to increase the dose of daptomycin to 10 mg/kg keeping in mind persistent bacteremia and we will add oral rifampin Dictation was produced using [employer] dictation software. please excuse any grammatical, word or spelling errors.
[2024-01-27] MEDS: rifAMPin 300 MG CAP PO SCH (15:18)
[2024-01-27 17:23] LABS: Hepatitis B Surface AB- Quant 24.9 mIU/mL
[2024-01-27 19:26] LABS: Hepatitis B Surface Antigen Nonreactive (Nonreactive)
[2024-01-28 09:28] LABS: Anisocytosis Slight; Basophils % (A) 0 %; Eosinophils % (A) 0 %; HCT 24.5 % (39.0-53.0); HGB 8.1 gm/dL (13.0-17.5); Hypochromasia Slight; Lymphocytes # (A) 0.3 k/uL (1.0-4.8); Lymphocytes % (A) 3 %; MCH 31.3 pg (25.0-35.0); MCHC 32.8 g/dL (31.0-37.0); MCV 95.4 fL (80.0-100.0); Macrocytosis Slight; Mean Platelet Volume 8.8; Monocytes # (A) 0.8 k/uL (0-1.0); Monocytes % (A) 8 %; Neutrophils % (A) 87 %; Poikilocytosis Slight; RBC 2.57 m/uL (4.30-5.90); RDW 19.4 % (11.5-15.5); WBC 10.4 k/uL (3.8-10.6)
[2024-01-28 09:29] LABS: Platelet Count 49 k/uL (150-450)
[2024-01-28 09:45] LABS: African American GFR (CKD) 48 (>60 ml/min/1.73 sqM); Anion Gap 8 mmol/L; Blood Urea Nitrogen 36 mg/dL (9-20); Carbon Dioxide 25 mmol/L (22-30); Chloride 97 mmol/L (98-107); Glucose 94 mg/dL (74-99); Non-African American GFR(CKD) 41 (>60 ml/min/1.73 sqM); Phosphorus 3.6 mg/dL (2.5-4.5); Potassium 3.6 mmol/L (3.5-5.1); Sodium 130 mmol/L (137-145)
--- NOTE | 2024-01-28 09:50 | P.PN ---
Subjective Progress Note Date: 01/28/24 The patient is a 63-year-old male with multiple comorbid conditions who is currently admitted with severe hyponatremia and liver failure. Cardiology has been consulted for new onset of atrial fibrillation. Patient was also found to have a large pericardial effusion, where on January 24 pericardiocentesis was performed removing 480 milliliters of serosanguineous fluid followed by pericardial drain. Drain has been discontinued. Patient was interviewed and examined resting comfortably in bed this morning. He is much more alert this morning and is answering questions appropriately. Patient denies any chest pain or difficulty breathing. He repeatedly asks for water as well as to go home. GENERAL: Ill-appearing, pale, in no acute distress. NECK: Supple without JVD or thyromegaly. LUNGS: Breath sounds diminished to auscultation bilaterally. Respiration equal and unlabored. No wheezes, rales or rhonchi. HEART: Irregular rate and rhythm. Soft systolic murmur. No rubs or gallops. S1 and S2 heard. EXTREMITIES: Normal range of motion. No clubbing or cyanosis. Peripheral pulses intact and strong. TELEMETRY: Atrial fibrillation with heart rates in the 90s IMPRESSION: Pericardial effusion, status post pericardiocentesis and drain placement MRSA bacteremia New onset of atrial fibrillation, rate controlled Hypotension, currently on vasopressors Hyponatremia, SIADH Acute kidney injury Valvular heart disease, moderate mitral and aortic regurgitation History of liver cirrhosis, weekly paracentesis PLAN: Resume anticoagulation as recommended by CV surgery and ICU team, as patient is likely a poor candidate with history of liver disease Continue to wean vasopressors Medical management for possible endocarditis. No plans on NICOLE Further recommendations to be based upon clinical course I am dictating on behalf of Dr Trevor Diaz's history/physical and assessment/plan. Objective - Vital Signs Vital signs: Vital Signs Temp 97.9 F 01/28/24 04:00 Pulse 98 01/28/24 09:00 Resp 22 01/28/24 09:00 BP 88/66 01/28/24 09:00 Pulse Ox 97 01/28/24 09:00 FiO2 Intake & Output 01/27/24 01/28/24 01/28/24 18:59 06:59 18:59 Intake Total 1097.519 4836.820 187.271 Output Total 402 0 10 Balance 122.743 4711.820 177.271 Weight 93.2 kg 96.8 kg Intake: IV 300 65 150 DAPTOmycin 550 mg In 20 Sodium Chloride 0.9% 50 ml @ 100 mls/hr IVPB Q24HR [facility] Rx#:[id number] Dextrose 5% in Water 1, 200 000 ml @ 100 mls/hr IV . [id number] [facility] with Sodium Bicarb (1 Meq/ml) 150 ml Rx#:[id number] Normal Saline as KVO @ 80 65 10mL/hr Sodium Chloride 0.9% 1, 150 000 ml @ 75 mls/hr IV . [id number] [facility] Rx#:[id number] Intake, IV Titration 674.443 933.820 37.271 Amount DAPTOmycin 950 mg In 100 Sodium Chloride 0.9% 50 ml @ 100 mls/hr IVPB Q24H [facility] Rx#:[id number] Norepinephrine 32 mg In 59.443 63.820 37.271 Sodium Chloride 0.9% 250 ml @ 0.03 MCG/KG/MIN 1. 295 mls/hr IV .Q24H [facility] Rx#:[id number] Sodium Chloride 0.9% 1, 615 770 000 ml @ 75 mls/hr IV . [id number] [facility] Rx#:[id number] Oral 25 100 Hemodialysis 400 Output: Urine 2 0 10 Hemodialysis 400 Hemodialysis Net Amount 0 Other: Voiding Method Indwelling Catheter Indwelling Catheter # Bowel Movements 0 - Labs CBC & Chem 7: 01/28/24 09:15 01/28/24 09:15 Labs: Abnormal Lab Results - Last 24 Hours (Table) 01/25/24 01/28/24 01/28/24 Range/Units 14:17 09:15 09:15 RBC 2.57 L (4.30-5.90) m/uL Hgb 8.1 L (13.0-17.5) gm/dL Hct 24.5 L (39.0-53.0) % RDW 19.4 H (11.5-15.5) % Plt Count 49 L (150-450) k/uL Neutrophils # 9.0 H (1.3-7.7) k/uL Lymphocytes # 0.3 L (1.0-4.8) k/uL Sodium 130 L (137-145) mmol/L Chloride 97 L (98-107) mmol/L BUN 36 H (9-20) mg/dL Creatinine 1.71 H (0.66-1.25) mg/dL Calcium 7.0 L (8.4-10.2) mg/dL Hep Bs Antibody A (Negative) Microbiology - Last 24 Hours (Table) 01/26/24 04:24 Blood Culture Gram Stain - Preliminary Blood Blood Culture - Preliminary Presumptive MRSA Molecular ID 01/24/24 08:59 Blood Culture Gram Stain - Final Blood Blood Culture - Final Methicillin resist S. aureus
--- NOTE | 2024-01-28 09:53 | P.PN ---
Subjective Patient is seen in follow-up for acute kidney injury. Remains oliguric. On Levophed. Receiving IV fluids. Not a reliable historian. Vital signs are stable. On vasopressor support. General: No acute distress. HEENT: Head exam is unremarkable. LUNGS: No audible rhonchi or wheezes. HEART: Rate and Rhythm are regular. ABDOMEN: Mild distention. Soft. Hernia noted. EXTREMITITES: Trace edema. Objective - Vital Signs Vital signs: Vital Signs Temp 97.9 F 01/28/24 04:00 Pulse 98 01/28/24 09:00 Resp 22 01/28/24 09:00 BP 88/66 01/28/24 09:00 Pulse Ox 97 01/28/24 09:00 FiO2 Intake & Output 01/27/24 01/28/24 01/28/24 18:59 06:59 18:59 Intake Total 4443.078 6387.820 187.271 Output Total 402 0 10 Balance 789.404 3381.820 177.271 Weight 93.2 kg 96.8 kg Intake: IV 300 65 150 DAPTOmycin 550 mg In 20 Sodium Chloride 0.9% 50 ml @ 100 mls/hr IVPB Q24HR [facility] Rx#:[id number] Dextrose 5% in Water 1, 200 000 ml @ 100 mls/hr IV . [id number] [facility] with Sodium Bicarb (1 Meq/ml) 150 ml Rx#:[id number] Normal Saline as KVO @ 80 65 10mL/hr Sodium Chloride 0.9% 1, 150 000 ml @ 75 mls/hr IV . [id number] [facility] Rx#:[id number] Intake, IV Titration 674.443 933.820 37.271 Amount DAPTOmycin 950 mg In 100 Sodium Chloride 0.9% 50 ml @ 100 mls/hr IVPB Q24H [facility] Rx#:[id number] Norepinephrine 32 mg In 59.443 63.820 37.271 Sodium Chloride 0.9% 250 ml @ 0.03 MCG/KG/MIN 1. 295 mls/hr IV .Q24H [facility] Rx#:[id number] Sodium Chloride 0.9% 1, 615 770 000 ml @ 75 mls/hr IV . [id number] [facility] Rx#:[id number] Oral 25 100 Hemodialysis 400 Output: Urine 2 0 10 Hemodialysis 400 Hemodialysis Net Amount 0 Other: Voiding Method Indwelling Catheter Indwelling Catheter # Bowel Movements 0 - Labs CBC & Chem 7: 01/28/24 09:15 01/28/24 09:15 Labs: Abnormal Lab Results - Last 24 Hours (Table) 01/25/24 01/28/24 01/28/24 Range/Units 14:17 09:15 09:15 RBC 2.57 L (4.30-5.90) m/uL Hgb 8.1 L (13.0-17.5) gm/dL Hct 24.5 L (39.0-53.0) % RDW 19.4 H (11.5-15.5) % Plt Count 49 L (150-450) k/uL Neutrophils # 9.0 H (1.3-7.7) k/uL Lymphocytes # 0.3 L (1.0-4.8) k/uL Sodium 130 L (137-145) mmol/L Chloride 97 L (98-107) mmol/L BUN 36 H (9-20) mg/dL Creatinine 1.71 H (0.66-1.25) mg/dL Calcium 7.0 L (8.4-10.2) mg/dL Hep Bs Antibody A (Negative) Microbiology - Last 24 Hours (Table) 01/26/24 04:24 Blood Culture Gram Stain - Preliminary Blood Blood Culture - Preliminary Presumptive MRSA Molecular ID 01/24/24 08:59 Blood Culture Gram Stain - Final Blood Blood Culture - Final Methicillin resist S. aureus Assessment and Plan Plan: Assessment: 1. Acute kidney injury secondary to ATN secondary to septic shock. Creatinine 1.93 dated January 27 2024. Baseline creatinine near 1. Oliguric. Started on hemodialysis January 27, 2024. 2. Septic shock secondary to MRSA bacteremia. Questionable endocarditis. No plans for NICOLE at this time. 3. Hyponatremia secondary to acute kidney injury. Improving. 4. Metabolic acidosis secondary to acute kidney injury status post bicarb drip. Better. On oral bicarb. 5. History of liver cirrhosis requiring weekly paracentesis. Last paracentesis January 21, 2024 with 3.2 L drained. 6. Moderate mitral and aortic regurgitation. 7. Pericardial effusion status post pericardial drain. Plan: Currently seen while undergoing hemodialysis. Maintain normal saline. Wean Levophed. Phosphorus level 3.6 dated January 28, 2024. Potassium replaced.
[2024-01-28] MEDS: POTASSIUM CHLORIDE ER 20 MEQ TAB.ER PO STA (11:37)
--- NOTE | 2024-01-28 13:26 | P.PN ---
Subjective Progress Note Date: 01/28/24 Principal diagnosis: Septic shock with MRSA bacteremia Patient is a 63-year-old male with past medical history significant for liver cirrhosis, abdominal ascites with weekly paracentesis, pancreatitis, alcoholism, among other things. Of note, patient had a recent hospitalization August 2023 where he was weak and confused and found to have severe hyponatremia. He did require 3% sodium infusion and brief ICU admission at that time. Patient sent in from [facility] last night. Reportedly, had multiple falls over the past couple days. Last night, he was found on the ground. Patient reports that he may have been on the ground for 2 to 3 hours. States that his legs just gave out. Denies losing consciousness. Denies losing hitting his head. States he landed on his right shoulder, which is a little sore. No limitation in motion or obvious trauma. skin tears noted bilateral upper extremitites. He does appear to be in a positive fluid balance. Does take Lasix, Aldactone, and salt tablets on outpatient basis. Also, undergoes weekly paracentesis by IR, and his next paracentesis is scheduled for tomorrow. His abdomen is full and distended. Nontender. He has severe bilateral lower extremity edema. On arrival to the emergency department he was noted to be hypotensive, has missed all 3 of his doses of midodrine yesterday. CBC: WBC count 15.9, hemoglobin 9.5, hematocrit 29.7, platelets 155. Coagulation profile includes a PT of 15.7, INR of 1.5, APTT 33.6. CMP on arrival: Sodium 113, potassium 5.1, chloride 92, serum bicarb 13, BUN 18, creatinine 0.99, glucose 114. LFTs unremarkable. Urinalysis showing moderate leukocytes and occasional bacteria. Patient denies any troubles or difficulty urinating, no dysuria, no fevers, flank pain, hematuria. No polyuria or excessive water intake. No notable fluid losses. Generalized weakness and falls are chief symptoms. No confusion, seizures, coma. Hypothyroidism and adrenal insufficiency previously ruled out. Nephrology has been consulted, is requesting this patient be monitored in the intensive care unit in case he needs 3% hypertonic saline. Most recent sodium is 112, however, the Lasix is still not been given due to hypotension. On 01/22/2024, patient is being seen for a follow-up. Awake and alert. No significant respiratory distress. The patient is currently on room air oxygen with a pulse ox of 98%. Abdominal paracentesis was done yesterday and the fluid was negative for infection. Culture still pending. Earlier this morning, the patient is on hypertonic saline 3% which is running at 20 cc an hour. Sodium level was 116 and subsequently upon 918. He has 1.07. The patient has a serum bicarb of 14. Patient will be given IV bicarb 100 mL equivalents total IV and she will be started on oral bicarb supplements. Urine output is in order of 10 cc an hour. Blood culture was positive for MRSA. Rocephin was discontinued and the patient was started on vancomycin. The patient is also on midodrine. The patient is on octreotide. 01/23/2024, the patient is being seen for a follow-up. The patient is awake and alert and the patient remains on room air oxygen. He did have staff aureus bacteremia the patient is currently on vancomycin. He remains hypotensive and the patient is currently on low-dose norepinephrine which is running at 0.08 mcg/kg/min. The patient remains on hypertonic saline 3% running at 20 cc an hour and the patient's sodium level is at 121. He does have some ascites. Urine output is in order of 20 cc an hour. White cell count of 22.9 with a hemoglobin 9.2. No evidence of any GI bleeding. No evidence of any encephalopathy. BUN is 27 with a creatinine of 1.1 and a potassium of is at 4.5. Remains on IV Rocephin and vancomycin. Remains on midodrine. Remains on pressors. Remains on octreotide. On 01/24/2024, the patient remains, comfortable on room air oxygen. He remains hypotensive as the patient was septic and the blood cultures positive for gram- positive cocci in clusters suggestive of MRSA and the patient remains on vancomy osmin. The patient currently is on norepinephrine which is running at 0.08 mcg/kg/min. Hypertonic saline was discontinued and the patient is currently on KVO IV fluids. Echocardiogram showed a ejection fraction of 50 to 55%. Large pericardial effusion without tamponade physiology. No clear indication for any vegetation at this point in time based on the routine transthoracic echocardiogram. The white cell count of 13.6, hemoglobin is at 9 and a platelet count is 101. Sodium is at 122, BUN is 32 with a creatinine of 1.38, AST is 132, ALT 75 and alkaline phosphatase 122. Vancomycin trough is 34.5. Blood sugar is at 127. Repeat blood cultures will be obtained for today. No significant encephalopathy. No respiratory distress. He does have abdominal ascites with a large abdominal wall hernia also noted/umbilical hernia. On 01/25/2024, the patient is being seen for a follow-up. The patient is slightly confused on today's evaluation and urine output is low. He remains hypotensive on pressors and the patient is currently on norepinephrine running at the lower dose to support his blood pressure. Repeat blood cultures still positive for MRSA/gram-positive cocci and the patient remains on vancomycin. As noted, he has a large pericardial effusion without any tamponade. Cardiology and cardiothoracic surgery on the case. The patient will likely need a pericardiocentesis today. Meanwhile, no major edema lower extremities. Urine output is low. Is developed progressive worsening renal function the creatinine is up to 1.6. BUN 36. Sodium levels at 125. Bicarb level is down to 12. He remains on a bicarb infusion with half-normal saline and a total of 100 mEq of sodium bicarb. The white cell count of 13.7. Hemoglobin 8.5 and a platelet count of 85. proBNP level is 38,000. Vancomycin trough from yesterday was 24.5. He remains on room air oxygen. Patient seen today on 01/26/2024, remains in the ICU, still requiring significant amount of pressors he is on norepinephrine at 0.18 mcg/kg/min still receiving bicarb drip at 100 cc/h still on Sandostatin. Patient has received 2 units of fresh frozen plasma INR is 2.1 today. Patient underwent pericardiocentesis yesterday, 470 mL out, cultures on the fluid are pending. Cytology is pending. Patient is receiving treatment for MRSA sepsis and septic shock with bacteremia, cultures on the pericardial fluid are pending t echocardiogram showed no evidence of vegetations on the valves. Patient continues to have ascites intermittently and he has a large umbilical hernia. Urine output remains marginal WBC count is 9.2 hemoglobin is 8 sodium is 125 potassium 4.0 chloride 101 bicarb is 16 BUN is 41 creatinine 1.74. Patient remains oliguric and spite of fluids, bicarb, and norepinephrine. Patient was seen today on 01/27/2024, patient remains in the ICU, still requiring second amount of pressors. He is on norepinephrine at 0.14 mcg/kg/min, remains on bicarb drip at 100 cc/h seen by nephrology today, and planning hemodialysis/renal replacement therapy. Patient will have a hemodialysis catheter placed today. Blood cultures continue to show positive MRSA, even on the blood cultures done yesterday after few days of being on treatment. Hence patient will eventually need a transesophageal echocardiogram, this is most likely a picture of endocarditis with MRSA infection unless proven otherwise. Patient is being followed by cardiology but for some reason it is felt that the patient is not stable enough for transesophageal echocardiogram we are in the process of tapering his norepinephrine as tolerated. In the meantime the patient remains on daptomycin for his presumptive endocarditis/MRSA bacteremia persistent. Labs today showed WBC count of 9.3 hemoglobin 8.4 sodium is 127 potassium 3.9 BUN is 43 creatinine 1.93 BNP level remains high at 38,800 x-ray today showed evidence of cardiomegaly, small pleural effusions, and some component of interstitial edema with pulmonary vasculature prominence Patient seen today on 01/28/2024, remains in the ICU, on room air, patient is still requiring norepinephrine at 0.18 mcg/kg/min IV fluids at 75 cc/h. Patient is undergoing hemodialysis again today, remains on daptomycin for his MRSA bacteremia which is most likely related to endocarditis unless proven otherwise. Cardiology felt is not stable enough for transesophageal echocardiogram. Patient underwent left radial arterial line placement today by me, and will try to arrange for interventional radiology to perform paracentesis on this patient. In the meantime patient is comfortable, not in distress, and undergoing hemodialysis. WBC count is 10.4 hemoglobin is 8.1 electrolytes are normal BUN is 36 creatinine 1.7 Objective - Vital Signs Vital signs: Vital Signs Temp 36.4 F L 01/28/24 13:00 Pulse 110 H 01/28/24 13:00 Resp 12 01/28/24 13:00 BP 122/49 01/28/24 13:00 Pulse Ox 97 01/28/24 12:15 FiO2 Intake & Output 01/27/24 01/28/24 01/28/24 18:59 06:59 18:59 Intake Total 0130.485 2635.820 833.850 Output Total 402 0 410 Balance 818.056 9082.820 423.850 Weight 93.2 kg 96.8 kg Intake: IV 300 65 375 DAPTOmycin 550 mg In 20 Sodium Chloride 0.9% 50 ml @ 100 mls/hr IVPB Q24HR [facility] Rx#:[id number] Dextrose 5% in Water 1, 200 000 ml @ 100 mls/hr IV . [id number] [facility] with Sodium Bicarb (1 Meq/ml) 150 ml Rx#:[id number] Normal Saline as KVO @ 80 65 10mL/hr Sodium Chloride 0.9% 1, 375 000 ml @ 75 mls/hr IV . [id number] [facility] Rx#:[id number] Intake, IV Titration 674.443 933.820 58.850 Amount DAPTOmycin 950 mg In 100 Sodium Chloride 0.9% 50 ml @ 100 mls/hr IVPB Q24H [facility] Rx#:[id number] Norepinephrine 32 mg In 59.443 63.820 58.850 Sodium Chloride 0.9% 250 ml @ 0.03 MCG/KG/MIN 1. 295 mls/hr IV .Q24H [facility] Rx#:[id number] Sodium Chloride 0.9% 1, 615 770 000 ml @ 75 mls/hr IV . [id number] [facility] Rx#:[id number] Oral 25 100 Hemodialysis 400 400 Output: Urine 2 0 10 Hemodialysis 400 400 Hemodialysis Net Amount 0 0 Other: Voiding Method Indwelling Catheter Indwelling Catheter Indwelling Catheter # Bowel Movements 0 ABP, PAP, CO, CI - Last Documented Arterial Blood Pressure 109/39 - Exam GENERAL EXAM: Alert, 63-year-old white male, on room air, not in any distress HEAD: Normocephalic and atraumatic EYES: Normal reaction of pupils, equal size. NOSE: Clear with pink turbinates. THROAT: No erythema or exudates. NECK: No masses, no JVD. CHEST: No chest wall deformity. LUNGS: Fine crackles at the bases no rhonchi no wheezes CVS: Distant S1 and S2 normal 2/6 systolic murmur throughout the precordium ABDOMEN: Positive ascites, nontender, large umbilical hernia noted. SKIN: No rashes. Bilateral upper extremity skin tears. CENTRAL NERVOUS SYSTEM: Alert oriented x 3 no gross focal neurologic deficit EXTREMITIES: There is bilateral 3+ lower extremity edema. No clubbing, or cyanosis. Peripheral pulses are intact. - Labs CBC & Chem 7: 01/28/24 09:15 01/28/24 09:15 Labs: Abnormal Lab Results - Last 24 Hours (Table) 01/25/24 01/28/24 01/28/24 Range/Units 14:17 09:15 09:15 RBC 2.57 L (4.30-5.90) m/uL Hgb 8.1 L (13.0-17.5) gm/dL Hct 24.5 L (39.0-53.0) % RDW 19.4 H (11.5-15.5) % Plt Count 49 L (150-450) k/uL Neutrophils # 9.0 H (1.3-7.7) k/uL Lymphocytes # 0.3 L (1.0-4.8) k/uL Sodium 130 L (137-145) mmol/L Chloride 97 L (98-107) mmol/L BUN 36 H (9-20) mg/dL Creatinine 1.71 H (0.66-1.25) mg/dL Calcium 7.0 L (8.4-10.2) mg/dL Hep Bs Antibody A (Negative) Microbiology - Last 24 Hours (Table) 01/26/24 04:24 Blood Culture Gram Stain - Preliminary Blood Blood Culture - Preliminary Presumptive MRSA Molecular ID 01/24/24 08:59 Blood Culture Gram Stain - Final Blood Blood Culture - Final Methicillin resist S. aureus Assessment and Plan Assessment: Impression: Septic shock secondary to MRSA bacteremia and pericardial effusion without tamponade findings. Transthoracic echocardiogram showed no evidence of vegetations, however the patient would likely need a transesophageal echo to confirm or rule out endocarditis. Based on the persistence of bacteremia, this is an endocarditis picture on (otherwise. Hypotension, secondary to septic shock, still requiring antibiotics and requiring pressors/norepinephrine Severe hyponatremia, improving. Acute kidney injury/acute tubular necrosis secondary to sepsis septic shock and hypotension Liver cirrhosis with abdominal ascites and weekly paracentesis, last paracentesis was done 01/21/2020 for a total of 3 to 4 L of fluid was aspirated. Patient is known to have history of alcoholism. Coagulopathy, secondary to above Acute leukocytosis, secondary to bacteremia Non-anion gap metabolic acidosis, currently on bicarb infusion improved, could consider stopping bicarb infusion Anemia of chronic disease History of pancreatitis Frequent falls Pericardial effusion without any tamponade physiology. Normal LV function Commendation: Continue hemodynamic support/pressors May require NICOLE, cardiology to decide once he is felt to be stable for NICOLE Continue antibiotics /daptomycin Continue oral bicarb, Continue hemodialysis as recommended by nephrology Consider another paracentesis for his ascites by interventional radiology was consulted again Continue midodrine Will continue to follow while in the ICU Time with Patient: Less than 30
--- NOTE | 2024-01-28 13:32 | US ---
EXAMINATION TYPE: US abdomen limited DATE OF EXAM: 01/28/2024 COMPARISON: None CLINICAL INDICATION: Male, 63 years old with history of ascites; Ascites check. Distention. FINDINGS AND IMPRESSION: Moderate to large abdominal ascites within the 4 quadrants of the abdomen. [facility] Faye Driscoll, , 01/28/2024 1:30 PM
--- NOTE | 2024-01-28 14:20 | P.PN ---
Subjective Progress Note Date: 01/27/24 HISTORY OF PRESENT ILLNESS: This is a 63 year old male with a previous medical history significant for hypertension and hypertensive cardiovascular disease, hyperlipidemia, history of pancreatitis in the past along with prior history of sepsis due to cellulitis about 2 year ago, history of chronic alcoholic hepatitis with alcoholic liver cirrhosis for which he has been following with Dr. Smith as an outpatient and has been getting a weekly paracentesis at [facility] every Friday, patient was recently hospitalized at [facility] from two 01/05 2024 for significant hyponatremia with a sodium level as low as 118, patient was treated with fluid restriction as well as salt tablets, and he was treated with IV diuretics in the form of Lasix and spironolactone, his sodium got as good as 123, I believe the patient does have reset osmostat at this point in time, and he has a new baseline at around 04/29/2024, patient was brought into the emergency department at [facility] this time because of recurrent falls over the last few weeks with increased falls 3 times, he fell against his right shoulder, he has limited range of motion of the right shoulder, patient has minimal bruises in the right knee, he has significant bruising in the left hip, he does appear to have edema in the abdomen as well as the upper thigh, he does not appear to have a significant edema both lower extremities, initially was started on Lasix 40 mg IV push every 12 hours, and the patient was having good urine output, his sodium went up to 115, then the patient sodium went down to 114 after he was given 60 cc of 3% hypertonic solution, therefore he was taken off that after nephrology seen the patient, and he was started on normal saline 1 L over the next hour, recheck his sodium level at 330, he was also started on Sandostatin 100 mcg IV push every 8 hours for hepatorenal syndrome, patient was admitted to the hospital he was also found to have a significant leukocytosis he was started on ceftriaxone, he had paracentesis in the ICU and his fluid were sent for cell count and differential rule out spontaneous bacterial peritonitis patient does not appear to have any fever or chills at this time he does not have any fever at this point in time either. 01/21: Patient is laying down in bed he appears to be very weak, he is in atrial fibrillation with heart rate is around 116, patient has no chest pain, he appears to be somewhat short of breath, he has been on fluid restriction, he is asking to reduce his fluid restriction to 1500 cc in a 24 hours, will continue to follow-up with the patient very closely, will obtain cardiology consultation, patient continues to have significant pain in his shoulders, he was started on morphine 2 mg IV push every 4 hours as needed for pain control, we will continue to follow-up the patient in the intensive care unit, monitor input and output and daily weight, blood cultures are positive for methicillin-resistant Staphylococcus aureus, patient was started on IV antibiotic in the form of vancomycin pharmacy to dose his peak and trough, continue ceftriaxone 1 g every back every 24 hours, patient continues to have leukocytosis, we will monitor the patient very closely. Infectious disease consultation will be obtained. 01/22: Patient sitting up in bed in no apparent distress, he is more awake and more alert today, his sodium is at 125, we will discontinue hypertonic saline 3%, continue patient on sodium bicarbonate tablet 650 mg orally twice every day, monitor the patient CMP over the next 24 hours, continue fluid restriction 1500 cc, continue IV antibiotic in the form of vancomycin and Rocephin, consult infectious disease Dr. Randle, patient has been followed by pulmonary medicine as well as nephrology, will continue to follow-up with the patient very closely patient was seen in consultation by cardiology, he was started on metoprolol 12.5 mg orally 3 times every day, will continue rate control, patient is not a candidate for anticoagulation due to his increased risk of bleeding. Echocardiogram showed ejection fraction of 55%, with moderate mitral regurgitation and aortic regurgitation with a large pericardial effusion without evidence of tamponade cardiology is following. 01/23: Patient sitting up in the bed that he appears to be somewhat short of breath, he continues to be in the fluid restriction, his last sodium is 127, he was started on sodium bicarbonate drip by nephrology, he did receive 1 dose of Lasix and his urine output is very low, patient appears to be edematous at this time, he does appear to have a significant pericardial effusion, will consult cardiothoracic surgery for possible pericardiocentesis, patient also will be started on Lasix 80 mg IV push every 12 hours, continue Levophed drip at this time, monitor the patient very closely, patient appears to be critical at this p oint in time, I spoke with the patient about his current prognosis and he continues to be full code for now. 01/24: Patient is laying down in bed in mild respiratory distress, his daughter was at the bedside, patient was seen in consultation by thoracic surgery he went for pericardiocentesis by Dr. Danielson with 450 cc of serosanguineous fluid and echo showed evidence of trivial fluid around the heart at this time, patient blood pressure did not recover from this at this point in time he continues to be hypotensive, he continued to be on Levophed, I had a long conversation with patient as well as nephrology today, the patient appears to be quite acidotic at this time, he was started on sodium bicarbonate drip at 100 cc an hour, he is not making any urine at this time about 10 cc an hour, if the patient is not improving over the next 24 hours he will need to be started on hemodialysis robert use the patient acidotic as well as not making any urine at this time he became oliguric at this point in time due to hepatorenal syndrome. Patient is aware of the prognosis continues to be very guarded at this time, we will follow-up with the patient very closely, patient continues to be bacteremic at this time with MRSA, infectious disease is following, patient may need to have a transesophagea l echocardiogram for evaluation of possible endocarditis. 01/25: Patient is laying down in bed appears to be in more distress today, he continues to be somewhat confused, his blood pressures on the lower side, doubled the amount of Levophed that he is taking, he has been in the ICU still, he still have the VAC in place from the pericardiocentesis, no more fluid coming out about 500 serosanguineous fluid still in there, patient's sodium is stable at 125, his creatinine is up to 1.7, I had a long conversation with the patient about the possibility of doing hemodialysis even for short period of time due to oliguric acute tubular necrosis and he stated that he will consider that, patient does appear to be quite sick at this point in time, and I believe we will continue to monitor the patient very closely provide him with the acute care, but the long-term prognosis continues to be guarded. His urine output continues to be marginal about 5 cc an hour. 01/26: Patient is laying down in bed appears to be quite fatigued and tired, he appears to be somewhat short of breath, he is using his accessory muscles, he will be given a breathing treatment in the form of albuterol at this point, he continues to be in the ICU, he has started hemodialysis today, only ultrafiltration, tomorrow he will have the actual hemodialysis tomorrow morning we will try to get some of the water out of his system, he seems to be more confused at this time, he appears to be generally weak, he does not appear to have improved over the last 24 hours he continues to have persistent bacteremia, he was switched to daptomycin at this point in time, infectious disease following, patient will need to have a transesophageal echocardiogram to rule out any endocarditis at this point in time. REVIEW OF SYSTEMS: Constitutional: No documented fever, no chills, no night sweats. No weight change. positive for weakness, positive for fatigue or lethargy. No daytime sleepiness. HEENT: No headache. No blurred vision or double vision, no loss of vision. No loss of Hearing, no ringing in the ears, no dizziness. No nasal drainage or congestion. No epistaxis. No sore throat. Lungs: positive for shortness of breath, occasional cough, no sputum production. positive for wheezing. Reports dyspnea with activity. Cardiovascular: No chest pain, positive for lower extremity edema. No palpitations. No paroxysmal nocturnal dyspnea. No orthopnea. No lightheadedness or dizziness. No syncopal episodes. Abdominal: Reports no abdominal pain. No nausea, vomiting. no diarrhea. No constipation. No bloody or tarry stools reports loss of appetite. Genitourinary: No dysuria, increased frequency, urgency. No urinary retention. Musculoskeletal: No myalgias. positive for muscle weakness, no gait dysfunction, positive for frequent falls. No back pain. No neck pain. Integumentary: No wounds, no lesions. No rash or pruritus. Positive for unusual bruising. No change in hair or nails. Positive for ecchymosis of the right knee. Neurologic: No aphasia. No facial droop. No change in mentation. No head injury. No headache. No paralysis. No paresthesia. Psychiatric: positive for depression. positive for anxiety. No mood swings. Endocrine: No abnormal blood sugars. No weight change. PHYSICAL EXAMINATION: General: 63-year-old male is sitting up in bed in mild respiratory distress HEENT: Head is atraumatic, normocephalic, pupils were equal round reactive to light and recommendation, extraocular muscle movement were intact, sclera are deeply icteric, conjunctivae were pale, mucous membranes of the mouth are somewhat dry. Neck: Supple, positive for JVP, normal carotid upstroke bilaterally, no lymphadenopathy. Chest: Decreased breath sounds at the bases, few rhonchi, positive for expiratory wheezes, no chest wall tenderness, positive for mild intercostal retractions. Heart: First heart sound is normal, second heart sound is normal there is BLANCA 2/6 located at the left sternal border, irregular due to atrial fibrillation there is a pleural VAC in place. Abdomen: Soft, distended moderate ascites, no tenderness, positive bowel sounds. Extremities: There is +2 edema no calf tenderness DP +2 bilaterally. Neurologic examination: Patient is awake alert and oriented X 3, cranial nerves II-12 appear grossly intact, muscle power were 4 out of 5 in upper extremities and 3 out of 5 in bilateral lower extremities, deep tendon reflexes normal bilaterally. ASSESSMENT AND PLAN: 1. 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 patient is back on sodium chloride tablet 1 g orally twice every day fluid restriction 1500 cc, sodium has been stable at 125. 2. Persistent MRSA bacteremia. Patient has been switched to daptomycin we will continue with that, patient is been followed by infectious ease, patient will need to have a transesophageal echocardiogram for evaluation and rule out endocarditis. Also was started on rifampin 600 mg orally twice every day. 3. Atrial fibrillation patient is not a candidate for anticoagulation at this point in time, continue patient on metoprolol 12.5 mg orally 3 times every day, cardiology consultation appreciated. 4. Acute kidney injury due to acute tubular necrosis and vasomotor nephropathy patient has become oliguric with significant acidosis currently on hemodialysis through a José catheter placed in the left femoral vein, continue with that, continue with the sodium bicarb 1300 mg orally twice every day nephrology is following. 5. Hyperkalemia due to acute kidney injury due to ATN and the use of spironolactone. Resolved. 6. None anion gap metabolic acidosis. Continue patient on sodium bicarbonate 1300 mg orally twice every day, currently on dialysis. 7. Chronic liver cirrhosis with recurrence ascites. Status post weekly paracentesis. He just had last Wednesday. Fluid did not show evidence of any WBC no evidence of spontaneous bacterial peritonitis. 8. Hepatorenal syndrome. Patient is off Sandostatin, continue with hemodialysis for now. 9. GERD. Continue patient on Protonix 40 mg orally once every day. 10. DVT prophylaxis. Bilateral knee-high TAMI hose. 11. Orthostatic hypotension continue patient on midodrine 10 mg orally 3 times every day. Currently on Levophed. 12. Right shoulder pain likely related to rotator cuff tear continue current pain management for now. 13. Medical debility due to underlying liver cirrhosis physical therapy evaluation. 14. Large pericardial effusion without evidence of tamponade. Status post pericardiocentesis that was done by cardiothoracic surgery. 15. Overall prognosis very guarded. 16. Patient is full code. Objective - Vital Signs Vital signs: Vital Signs Temp 97.1 F L 01/27/24 18:00 Pulse 86 01/27/24 18:00 Resp 24 01/27/24 18:00 BP 84/52 01/27/24 18:00 Pulse Ox 100 01/27/24 18:00 FiO2 Intake & Output 01/27/24 01/27/24 01/28/24 06:59 18:59 06:59 Intake Total 9075.599 3519.443 75 Output Total 12 402 0 Balance 1086.444 997.443 75 Weight 93.2 kg 93.2 kg Intake: IV 920 300 5 DAPTOmycin 550 mg In 20 Sodium Chloride 0.9% 50 ml @ 100 mls/hr IVPB Q24HR [facility] Rx#:[id number] Dextrose 5% in Water 1, 800 200 000 ml @ 100 mls/hr IV . [id number] [facility] with Sodium Bicarb (1 Meq/ml) 150 ml Rx#:[id number] Normal Saline as KVO @ 120 80 5 10mL/hr Intake, IV Titration 178.444 674.443 70 Amount Norepinephrine 32 mg In 178.444 59.443 Sodium Chloride 0.9% 250 ml @ 0.03 MCG/KG/MIN 1. 295 mls/hr IV .Q24H [facility] Rx#:[id number] Sodium Chloride 0.9% 1, 615 70 000 ml @ 75 mls/hr IV . [id number] [facility] Rx#:[id number] Oral 25 Hemodialysis 400 Output: Chest Tube Drainage 12 Chest Tube Left Lateral 12 Chest Urine 0 2 0 Hemodialysis 400 Hemodialysis Net Amount 0 Other: Voiding Method Indwelling Catheter Indwelling Catheter # Bowel Movements 1 0 - Labs CBC & Chem 7: 01/28/24 09:15 01/28/24 09:15 Labs: Abnormal Lab Results - Last 24 Hours (Table) 01/25/24 01/27/24 01/27/24 Range/Units 14:17 05:47 05:47 RBC 2.71 L (4.30-5.90) m/uL Hgb 8.4 L (13.0-17.5) gm/dL Hct 26.0 L (39.0-53.0) % RDW 17.6 H (11.5-15.5) % Plt Count 55 L (150-450) k/uL Lymphocytes # 0.4 L (1.0-4.8) k/uL Sodium 127 L (137-145) mmol/L Chloride 97 L (98-107) mmol/L BUN 43 H (9-20) mg/dL Creatinine 1.93 H (0.66-1.25) mg/dL Glucose 117 H (74-99) mg/dL Calcium 7.4 L (8.4-10.2) mg/dL Hep Bs Antibody A (Negative) Microbiology - Last 24 Hours (Table) 01/24/24 08:59 Blood Culture Gram Stain - Final Blood Blood Culture - Final Methicillin resist S. aureus 01/26/24 04:24 Blood Culture Gram Stain - Preliminary Blood Blood Culture - Preliminary Molecular ID
--- NOTE | 2024-01-28 14:22 | P.PN ---
Subjective Progress Note Date: 01/28/24 HISTORY OF PRESENT ILLNESS: This is a 63 year old male with a previous medical history significant for hypertension and hypertensive cardiovascular disease, hyperlipidemia, history of pancreatitis in the past along with prior history of sepsis due to cellulitis about 2 year ago, history of chronic alcoholic hepatitis with alcoholic liver cirrhosis for which he has been following with Dr. Smith as an outpatient and has been getting a weekly paracentesis at [facility] every Friday, patient was recently hospitalized at [facility] from two 01/05 2024 for significant hyponatremia with a sodium level as low as 118, patient was treated with fluid restriction as well as salt tablets, and he was treated with IV diuretics in the form of Lasix and spironolactone, his sodium got as good as 123, I believe the patient does have reset osmostat at this point in time, and he has a new baseline at around 04/29/2024, patient was brought into the emergency department at [facility] this time because of recurrent falls over the last few weeks with increased falls 3 times, he fell against his right shoulder, he has limited range of motion of the right shoulder, patient has minimal bruises in the right knee, he has significant bruising in the left hip, he does appear to have edema in the abdomen as well as the upper thigh, he does not appear to have a significant edema both lower extremities, initially was started on Lasix 40 mg IV push every 12 hours, and the patient was having good urine output, his sodium went up to 115, then the patient sodium went down to 114 after he was given 60 cc of 3% hypertonic solution, therefore he was taken off that after nephrology seen the patient, and he was started on normal saline 1 L over the next hour, recheck his sodium level at 330, he was also started on Sandostatin 100 mcg IV push every 8 hours for hepatorenal syndrome, patient was admitted to the hospital he was also found to have a significant leukocytosis he was started on ceftriaxone, he had paracentesis in the ICU and his fluid were sent for cell count and differential rule out spontaneous bacterial peritonitis patient does not appear to have any fever or chills at this time he does not have any fever at this point in time either. 01/21: Patient is laying down in bed he appears to be very weak, he is in atrial fibrillation with heart rate is around 116, patient has no chest pain, he appears to be somewhat short of breath, he has been on fluid restriction, he is asking to reduce his fluid restriction to 1500 cc in a 24 hours, will continue to follow-up with the patient very closely, will obtain cardiology consultation, patient continues to have significant pain in his shoulders, he was started on morphine 2 mg IV push every 4 hours as needed for pain control, we will continue to follow-up the patient in the intensive care unit, monitor input and output and daily weight, blood cultures are positive for methicillin-resistant Staphylococcus aureus, patient was started on IV antibiotic in the form of vancomycin pharmacy to dose his peak and trough, continue ceftriaxone 1 g every back every 24 hours, patient continues to have leukocytosis, we will monitor the patient very closely. Infectious disease consultation will be obtained. 01/22: Patient sitting up in bed in no apparent distress, he is more awake and more alert today, his sodium is at 125, we will discontinue hypertonic saline 3%, continue patient on sodium bicarbonate tablet 650 mg orally twice every day, monitor the patient CMP over the next 24 hours, continue fluid restriction 1500 cc, continue IV antibiotic in the form of vancomycin and Rocephin, consult infectious disease Dr. Randle, patient has been followed by pulmonary medicine as well as nephrology, will continue to follow-up with the patient very closely patient was seen in consultation by cardiology, he was started on metoprolol 12.5 mg orally 3 times every day, will continue rate control, patient is not a candidate for anticoagulation due to his increased risk of bleeding. Echocardiogram showed ejection fraction of 55%, with moderate mitral regurgitation and aortic regurgitation with a large pericardial effusion without evidence of tamponade cardiology is following. 01/23: Patient sitting up in the bed that he appears to be somewhat short of breath, he continues to be in the fluid restriction, his last sodium is 127, he was started on sodium bicarbonate drip by nephrology, he did receive 1 dose of Lasix and his urine output is very low, patient appears to be edematous at this time, he does appear to have a significant pericardial effusion, will consult cardiothoracic surgery for possible pericardiocentesis, patient also will be started on Lasix 80 mg IV push every 12 hours, continue Levophed drip at this time, monitor the patient very closely, patient appears to be critical at this p oint in time, I spoke with the patient about his current prognosis and he continues to be full code for now. 01/24: Patient is laying down in bed in mild respiratory distress, his daughter was at the bedside, patient was seen in consultation by thoracic surgery he went for pericardiocentesis by Dr. Danielson with 450 cc of serosanguineous fluid and echo showed evidence of trivial fluid around the heart at this time, patient blood pressure did not recover from this at this point in time he continues to be hypotensive, he continued to be on Levophed, I had a long conversation with patient as well as nephrology today, the patient appears to be quite acidotic at this time, he was started on sodium bicarbonate drip at 100 cc an hour, he is not making any urine at this time about 10 cc an hour, if the patient is not improving over the next 24 hours he will need to be started on hemodialysis robert use the patient acidotic as well as not making any urine at this time he became oliguric at this point in time due to hepatorenal syndrome. Patient is aware of the prognosis continues to be very guarded at this time, we will follow-up with the patient very closely, patient continues to be bacteremic at this time with MRSA, infectious disease is following, patient may need to have a transesophagea l echocardiogram for evaluation of possible endocarditis. 01/25: Patient is laying down in bed appears to be in more distress today, he continues to be somewhat confused, his blood pressures on the lower side, doubled the amount of Levophed that he is taking, he has been in the ICU still, he still have the VAC in place from the pericardiocentesis, no more fluid coming out about 500 serosanguineous fluid still in there, patient's sodium is stable at 125, his creatinine is up to 1.7, I had a long conversation with the patient about the possibility of doing hemodialysis even for short period of time due to oliguric acute tubular necrosis and he stated that he will consider that, patient does appear to be quite sick at this point in time, and I believe we will continue to monitor the patient very closely provide him with the acute care, but the long-term prognosis continues to be guarded. His urine output continues to be marginal about 5 cc an hour. 01/26: Patient is laying down in bed appears to be quite fatigued and tired, he appears to be somewhat short of breath, he is using his accessory muscles, he will be given a breathing treatment in the form of albuterol at this point, he continues to be in the ICU, he has started hemodialysis today, only ultrafiltration, tomorrow he will have the actual hemodialysis tomorrow morning we will try to get some of the water out of his system, he seems to be more confused at this time, he appears to be generally weak, he does not appear to have improved over the last 24 hours he continues to have persistent bacteremia, he was switched to daptomycin at this point in time, infectious disease following, patient will need to have a transesophageal echocardiogram to rule out any endocarditis at this point in time. 01/27: Patient appears to be more confused today, he is asking for more water, he cannot get more fluid by mouth due to fluid restriction at 1500 cc, he is getting hemodialysis right now, he denies any chest pain at this time, he is less short of breath, he continues to have significant ascites in his abdomen, he is likely will be going for paracentesis by interventional radiology later on today, after he finishes his hemodialysis, he has been on daptomycin 950 mg IV piggyback every 24 hours, he has been on rifampin 600 mg orally twice every day per infectious disease, awaiting cardiology input regarding transesophageal echocardiogram for evaluation of possible endocarditis at this time as the patient continues to have a persistent MRSA bacteremia, patient also has been in the ICU for quite some times, he had suffered from significant medical debility, we will continue with current treatment plan, we will follow-up with the patient very closely. REVIEW OF SYSTEMS: Constitutional: No documented fever, no chills, no night sweats. No weight change. positive for weakness, positive for fatigue or lethargy. No daytime sleepiness. HEENT: No headache. No blurred vision or double vision, no loss of vision. No loss of Hearing, no ringing in the ears, no dizziness. No nasal drainage or congestion. No epistaxis. No sore throat. Lungs: positive for shortness of breath, occasional cough, no sputum production. positive for wheezing. Reports dyspnea with activity. Cardiovascular: No chest pain, positive for lower extremity edema. No palpitations. No paroxysmal nocturnal dyspnea. No orthopnea. No lightheadedness or dizziness. No syncopal episodes. Abdominal: Reports no abdominal pain. No nausea, vomiting. no diarrhea. No constipation. No bloody or tarry stools reports loss of appetite. Genitourinary: No dysuria, increased frequency, urgency. No urinary retention. Musculoskeletal: No myalgias. positive for muscle weakness, no gait dysfunction, positive for frequent falls. No back pain. No neck pain. Integumentary: No wounds, no lesions. No rash or pruritus. Positive for unus ual bruising. No change in hair or nails. Positive for ecchymosis of the right knee. Neurologic: No aphasia. No facial droop. No change in mentation. No head injury. No headache. No paralysis. No paresthesia. Psychiatric: positive for depression. positive for anxiety. No mood swings. Endocrine: No abnormal blood sugars. No weight change. PHYSICAL EXAMINATION: General: 63-year-old male is sitting up in bed in mild respiratory distress HEENT: Head is atraumatic, normocephalic, pupils were equal round reactive to light and recommendation, extraocular muscle movement were intact, sclera are deeply icteric, conjunctivae were pale, mucous membranes of the mouth are somewhat dry. Neck: Supple, positive for JVP, normal carotid upstroke bilaterally, no lymphadenopathy. Chest: Decreased breath sounds at the bases, few rhonchi, positive for expiratory wheezes, no chest wall tenderness, positive for mild intercostal retractions. Heart: First heart sound is normal, second heart sound is normal there is BLANCA 2/6 located at the left sternal border, irregular due to atrial fibrillation there is a pleural VAC in place. Abdomen: Soft, distended moderate ascites, no tenderness, positive bowel sounds. Extremities: There is +2 edema no calf tenderness DP +2 bilaterally. Neurologic examination: Patient is awake alert and oriented X 3, cranial nerves II-12 appear grossly intact, muscle power were 4 out of 5 in upper extremities and 3 out of 5 in bilateral lower extremities, deep tendon reflexes normal bilaterally. ASSESSMENT AND PLAN: 1. 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 fluid restriction 1500 cc, sodium has been stable at 127. 2. Persistent MRSA bacteremia. Patient has been switched to daptomycin we will continue with that, patient is been followed by infectious ease, patient will need to have a transesophageal echocardiogram for evaluation and rule out endocarditis. Also was started on rifampin 600 mg orally twice every day. 3. Atrial fibrillation patient is not a candidate for anticoagulation at this point in time, continue patient on metoprolol 12.5 mg orally 3 times every day, cardiology consultation appreciated. 4. Acute kidney injury due to acute tubular necrosis and vasomotor nephropathy patient has become oliguric with significant acidosis currently on hemodialysis through a José catheter placed in the left femoral vein, continue with that, continue with the sodium bicarb 1300 mg orally twice every day nephrology is following. 5. Hyperkalemia due to acute kidney injury due to ATN and the use of sp ironolactone. Resolved. 6. None anion gap metabolic acidosis. Continue patient on sodium bicarbonate 1300 mg orally twice every day, currently on dialysis. 7. Chronic liver cirrhosis with recurrence ascites. Status post weekly paracentesis. He just had last Friday. Fluid did not show evidence of any WBC no evidence of spontaneous bacterial peritonitis. 8. Hepatorenal syndrome. Patient is off Sandostatin, continue with hemodialysis for now. 9. GERD. Continue patient on Protonix 40 mg orally once every day. 10. DVT prophylaxis. Bilateral knee-high TAMI hose. 11. Orthostatic hypotension continue patient on midodrine 10 mg orally 3 times every day. Currently on Levophed. 12. Right shoulder pain likely related to rotator cuff tear continue current pain management for now. 13. Medical debility due to underlying liver cirrhosis physical therapy evaluation. 14. Large pericardial effusion without evidence of tamponade. Status post pericardiocentesis that was done by cardiothoracic surgery. 15. Overall prognosis very guarded. 16. Patient is full code. Objective - Vital Signs Vital signs: Vital Signs Temp 36.4 F L 01/28/24 13:00 Pulse 110 H 01/28/24 13:00 Resp 12 01/28/24 13:00 BP 122/49 01/28/24 13:00 Pulse Ox 97 01/28/24 12:15 FiO2 Intake & Output 01/27/24 01/28/24 01/28/24 18:59 06:59 18:59 Intake Total 0380.619 9139.820 833.850 Output Total 402 0 410 Balance 236.296 5280.820 423.850 Weight 93.2 kg 96.8 kg Intake: IV 300 65 375 DAPTOmycin 550 mg In 20 Sodium Chloride 0.9% 50 ml @ 100 mls/hr IVPB Q24HR [facility] Rx#:[id number] Dextrose 5% in Water 1, 200 000 ml @ 100 mls/hr IV . [id number] [facility] with Sodium Bicarb (1 Meq/ml) 150 ml Rx#:[id number] Normal Saline as KVO @ 80 65 10mL/hr Sodium Chloride 0.9% 1, 375 000 ml @ 75 mls/hr IV . [id number] [facility] Rx#:[id number] Intake, IV Titration 674.443 933.820 58.850 Amount DAPTOmycin 950 mg In 100 Sodium Chloride 0.9% 50 ml @ 100 mls/hr IVPB Q24H [facility] Rx#:[id number] Norepinephrine 32 mg In 59.443 63.820 58.850 Sodium Chloride 0.9% 250 ml @ 0.03 MCG/KG/MIN 1. 295 mls/hr IV .Q24H [facility] Rx#:[id number] Sodium Chloride 0.9% 1, 615 770 000 ml @ 75 mls/hr IV . [id number] [facility] Rx#:[id number] Oral 25 100 Hemodialysis 400 400 Output: Urine 2 0 10 Hemodialysis 400 400 Hemodialysis Net Amount 0 0 Other: Voiding Method Indwelling Catheter Indwelling Catheter Indwelling Catheter # Bowel Movements 0 ABP, PAP, CO, CI - Last Documented Arterial Blood Pressure 109/39 - Labs CBC & Chem 7: 01/28/24 09:15 01/28/24 09:15 Labs: Abnormal Lab Results - Last 24 Hours (Table) 01/25/24 01/28/24 01/28/24 Range/Units 14:17 09:15 09:15 RBC 2.57 L (4.30-5.90) m/uL Hgb 8.1 L (13.0-17.5) gm/dL Hct 24.5 L (39.0-53.0) % RDW 19.4 H (11.5-15.5) % Plt Count 49 L (150-450) k/uL Neutrophils # 9.0 H (1.3-7.7) k/uL Lymphocytes # 0.3 L (1.0-4.8) k/uL Sodium 130 L (137-145) mmol/L Chloride 97 L (98-107) mmol/L BUN 36 H (9-20) mg/dL Creatinine 1.71 H (0.66-1.25) mg/dL Calcium 7.0 L (8.4-10.2) mg/dL Hep Bs Antibody A (Negative) Microbiology - Last 24 Hours (Table) 01/26/24 04:24 Blood Culture Gram Stain - Preliminary Blood Blood Culture - Preliminary Presumptive MRSA Molecular ID 01/24/24 08:59 Blood Culture Gram Stain - Final Blood Blood Culture - Final Methicillin resist S. aureus
--- NOTE | 2024-01-28 19:08 | PCN ---
PROCEDURE NOTE PROCEDURE PERFORMED: Placement of a left radial arterial line. PREOPERATIVE DIAGNOSES: 1. Hypotension requiring pressors. 2. Methicillin-resistant Staphylococcus aureus bacteremia. POSTOPERATIVE DIAGNOSIS: 1. Hypotension requiring pressors. 2. Methicillin-resistant Staphylococcus aureus bacteremia. ANESTHESIA USED: None deployed. DESCRIPTION OF PROCEDURE: The left wrist was prepared in a sterile fashion. Drapes were applied. The left radial artery palpated, easily cannulated. A guidewire was placed. A Cook's catheter inserted over the guidewire, and the guidewire was removed. Good blood flow. Good waveform. No complications. Line was secured using 3.0 silk sutures. MMODL / IJN: [id number] /
[2024-01-29 05:05] LABS: Glucose,Whole Blood 113 mg/dL (70-110)
[2024-01-29 05:41] LABS: Anisocytosis Moderate; Basophils % (A) 0 %; Eosinophils # (A) 0.1 k/uL (0-0.7); Eosinophils % (A) 1 %; HCT 28.1 % (39.0-53.0); HGB 9.2 gm/dL (13.0-17.5); Hypochromasia Slight; Lymphocytes # (A) 0.3 k/uL (1.0-4.8); Lymphocytes % (A) 2 %; MCH 31.5 pg (25.0-35.0); MCHC 32.8 g/dL (31.0-37.0); Macrocytosis Slight; Monocytes # (A) 0.8 k/uL (0-1.0); Monocytes % (A) 7 %; Neutrophils # (A) 9.4 k/uL (1.3-7.7); Neutrophils % (A) 87 %; Poikilocytosis Slight; RBC 2.93 m/uL (4.30-5.90); RDW 20.2 % (11.5-15.5); WBC 10.8 k/uL (3.8-10.6)
[2024-01-29 05:49] LABS: Platelet Count 60 k/uL (150-450)
[2024-01-29 05:51] LABS: INR 2.4 (<1.2); Prothrombin Time 24.2 sec (10.0-12.5)
[2024-01-29 06:19] LABS: African American GFR (CKD) 46 (>60 ml/min/1.73 sqM); Anion Gap 6 mmol/L; Blood Urea Nitrogen 27 mg/dL (9-20); Carbon Dioxide 21 mmol/L (22-30); Chloride 100 mmol/L (98-107); Glucose 106 mg/dL (74-99); Non-African American GFR(CKD) 40 (>60 ml/min/1.73 sqM); Potassium 3.6 mmol/L (3.5-5.1); Sodium 127 mmol/L (137-145)
[2024-01-29] MEDS: POTASSIUM BICARBONATE/CIT AC 20 MEQ TABLET.EFF NG-TUBE SCH (08:20)
--- NOTE | 2024-01-29 08:47 | P.PN ---
Subjective Progress Note Date: 01/28/24 Principal diagnosis: Reason for follow-up is MRSA bacteremia Patient is a 63-year-old male with a past medical history significant for hypertension, cirrhosis of the liver pancreatitis pneumonia patient was admitted to the hospital for frequent falls and low sodium also have MRSA bacteremia probably this consultation echocardiogram did shows large pericardial effusion and the patient is status post pericardial window completed on 01/25/2024. On today's evaluation that is 01/28/2024, Patient is afebrile this morning patient denies having any chest pain shortness of breath or cough, the patient is currently on 2 L current oxygen, patient denies any abdominal pain no diarrhea no nausea no vomiting, patient still requiring pressor support as reported by the nursing staff. Patient white count is 10.4, creatinine is 1.71 Objective - Vital Signs Vital signs: Vital Signs Temp 97.9 F 01/28/24 04:00 Pulse 110 H 01/28/24 11:30 Resp 15 01/28/24 11:30 BP 94/45 01/28/24 10:00 Pulse Ox 97 01/28/24 11:30 FiO2 Intake & Output 01/27/24 01/28/24 01/28/24 18:59 06:59 18:59 Intake Total 5288.945 2579.820 433.850 Output Total 402 0 10 Balance 041.503 5174.820 423.850 Weight 93.2 kg 96.8 kg Intake: IV 300 65 375 DAPTOmycin 550 mg In 20 Sodium Chloride 0.9% 50 ml @ 100 mls/hr IVPB Q24HR [facility] Rx#:[id number] Dextrose 5% in Water 1, 200 000 ml @ 100 mls/hr IV . [id number] [facility] with Sodium Bicarb (1 Meq/ml) 150 ml Rx#:[id number] Normal Saline as KVO @ 80 65 10mL/hr Sodium Chloride 0.9% 1, 375 000 ml @ 75 mls/hr IV . [id number] [facility] Rx#:[id number] Intake, IV Titration 674.443 933.820 58.850 Amount DAPTOmycin 950 mg In 100 Sodium Chloride 0.9% 50 ml @ 100 mls/hr IVPB Q24H [facility] Rx#:[id number] Norepinephrine 32 mg In 59.443 63.820 58.850 Sodium Chloride 0.9% 250 ml @ 0.03 MCG/KG/MIN 1. 295 mls/hr IV .Q24H [facility] Rx#:[id number] Sodium Chloride 0.9% 1, 615 770 000 ml @ 75 mls/hr IV . [id number] [facility] Rx#:[id number] Oral 25 100 Hemodialysis 400 Output: Urine 2 0 10 Hemodialysis 400 Hemodialysis Net Amount 0 Other: Voiding Method Indwelling Catheter Indwelling Catheter Indwelling Catheter # Bowel Movements 0 ABP, PAP, CO, CI - Last Documented Arterial Blood Pressure 104/37 - Exam GENERAL DESCRIPTION: An elderly male lying in bed in no distress RESPIRATORY SYSTEM: Unlabored breathing , decreased breath sounds at bases HEART: S1 S2 regular rate and rhythm , ABDOMEN: Soft , no tenderness EXTREMITIES: No edema feet - Labs CBC & Chem 7: 01/29/24 05:00 01/29/24 05:00 Labs: Abnormal Lab Results - Last 24 Hours (Table) 01/25/24 01/28/24 01/28/24 Range/Units 14:17 09:15 09:15 RBC 2.57 L (4.30-5.90) m/uL Hgb 8.1 L (13.0-17.5) gm/dL Hct 24.5 L (39.0-53.0) % RDW 19.4 H (11.5-15.5) % Plt Count 49 L (150-450) k/uL Neutrophils # 9.0 H (1.3-7.7) k/uL Lymphocytes # 0.3 L (1.0-4.8) k/uL Sodium 130 L (137-145) mmol/L Chloride 97 L (98-107) mmol/L BUN 36 H (9-20) mg/dL Creatinine 1.71 H (0.66-1.25) mg/dL Calcium 7.0 L (8.4-10.2) mg/dL Hep Bs Antibody A (Negative) Microbiology - Last 24 Hours (Table) 01/26/24 04:24 Blood Culture Gram Stain - Preliminary Blood Blood Culture - Preliminary Presumptive MRSA Molecular ID 01/24/24 08:59 Blood Culture Gram Stain - Final Blood Blood Culture - Final Methicillin resist S. aureus Assessment and Plan (1) MRSA bacteremia Current Visit: Yes Status: Acute Code(s): R78.81 - BACTEREMIA; B95.62 - METHICILLIN RESIS STAPH INFCT CAUSING DISEASES CLASSD [id number] SNOMED Code(s): 12291935517670053 (2) Leukocytosis Current Visit: Yes Status: Acute Code(s): D72.829 - ELEVATED WHITE BLOOD CELL COUNT, UNSPECIFIED SNOMED Code(s): 903980240 (3) Skin tear Current Visit: Yes Status: Acute Code(s): WDU0541 - SNOMED Code(s): 890069148 Plan: 1patient with MRSA bacteremia in this patient presented to the hospital with fall did have some skin maceration noticed to have significant hyponatremia however patient did not have any fever during this admission did have elevated white count of chest x-ray was negative urine is positive however urine cultures came back negative source of this bacteremia is likely skin and soft tissue however if any persistent bacteremia will need to rule out endovascular source he already has the echocardiogram did not show any vegetation and large effusion but no tamponade phenomena 2-patient did have persistent bacteremia highly suspicious for endovascular source, currently waiting for [facility] cardiology waiting for condition to stabilize before attempting the procedure 3-patient to continue with daptomycin, dose has been increased up to 10 mg/kg and rifampin has been added as of yesterday blood cultures repeated this morning and will monitor clinical course closely Dictation was produced using [employer] dictation software. please excuse any grammatical, word or spelling errors. Time with Patient: Less than 30
--- NOTE | 2024-01-29 09:13 | P.PN ---
Subjective Progress Note Date: 01/29/24 The patient is a 63-year-old male with multiple comorbid conditions who is currently admitted with severe hyponatremia and liver failure. Cardiology has been consulted for new onset of atrial fibrillation. Patient was also found to have a large pericardial effusion, where on January 24 pericardiocentesis was performed removing 480 milliliters of serosanguineous fluid followed by pericardial drain. Drain has been discontinued. Patient had a paracentesis and dialysis yesterday. Heart rates have since elevated in the 120s. Patient was interviewed and examined resting in bed. Patient is tachypneic. He is much more alert this morning and is answering questions appropriately. Patient denies any chest pain or difficulty breathing. GENERAL: Ill-appearing, pale, in no acute distress. NECK: Supple without JVD or thyromegaly. LUNGS: Breath sounds diminished to auscultation bilaterally. Respiration equal and unlabored. No wheezes, rales or rhonchi. HEART: Irregular rate and rhythm. Soft systolic murmur. No rubs or gallops. S1 and S2 heard. EXTREMITIES: Normal range of motion. Mild to moderate edema. No clubbing or cyanosis. Peripheral pulses intact and strong. TELEMETRY: Atrial fibrillation with heart rates in the 120s IMPRESSION: Pericardial effusion, status post pericardiocentesis and drain placement MRSA bacteremia New onset of atrial fibrillation, rate controlled Hypotension, currently on vasopressors Hyponatremia, SIADH Acute kidney injury Valvular heart disease, moderate mitral and aortic regurgitation History of liver cirrhosis, weekly paracentesis PLAN: Continue to wean vasopressors Medical management for possible endocarditis NICOLE is contraindicated and inappropriate due to patient's poor clinical status Recommend hospice/DNR status I am dictating on behalf of Dr Trevor Diaz's history/physical and assessment/plan. Objective - Vital Signs Vital signs: Vital Signs Temp 97.9 F 01/29/24 04:00 Pulse 112 H 01/29/24 07:00 Resp 18 01/29/24 07:00 BP 94/45 01/29/24 02:15 Pulse Ox 94 L 01/29/24 07:00 FiO2 Intake & Output 01/28/24 01/29/24 01/29/24 18:59 06:59 18:59 Intake Total 5677.933 6854.473 75 Output Total 410 0 0 Balance 314.976 2396.473 75 Weight 95.7 kg Intake: IV 825 950 75 DAPTOmycin 950 mg In 50 Sodium Chloride 0.9% 50 ml @ 100 mls/hr IVPB Q24H [facility] Rx#:[id number] Sodium Chloride 0.9% 1, 825 900 75 000 ml @ 75 mls/hr IV . [id number] [facility] Rx#:[id number] Intake, IV Titration 112.577 189.473 Amount Norepinephrine 32 mg In 112.577 189.473 Sodium Chloride 0.9% 250 ml @ 0.03 MCG/KG/MIN 1. 295 mls/hr IV .Q24H [facility] Rx#:[id number] Hemodialysis 400 Output: Urine 10 0 0 Hemodialysis 400 Hemodialysis Net Amount 0 Other: Voiding Method Indwelling Catheter Indwelling Catheter # Voids 0 0 0 ABP, PAP, CO, CI - Last Documented Arterial Blood Pressure 101/45 - Labs CBC & Chem 7: 01/29/24 05:00 01/29/24 05:00 Labs: Abnormal Lab Results - Last 24 Hours (Table) 01/28/24 01/28/24 01/29/24 Range/Units 09:15 09:15 05:00 WBC 10.8 H (3.8-10.6) k/uL RBC 2.57 L 2.93 L (4.30-5.90) m/uL Hgb 8.1 L 9.2 L (13.0-17.5) gm/dL Hct 24.5 L 28.1 L (39.0-53.0) % RDW 19.4 H 20.2 H (11.5-15.5) % Plt Count 49 L 60 L (150-450) k/uL Neutrophils # 9.0 H 9.4 H (1.3-7.7) k/uL Lymphocytes # 0.3 L 0.3 L (1.0-4.8) k/uL PT (10.0-12.5) sec INR (<1.2) Sodium 130 L (137-145) mmol/L Chloride 97 L (98-107) mmol/L Carbon Dioxide (22-30) mmol/L BUN 36 H (9-20) mg/dL Creatinine 1.71 H (0.66-1.25) mg/dL Glucose (74-99) mg/dL POC Glucose (mg/dL) (70-110) mg/dL Calcium 7.0 L (8.4-10.2) mg/dL 01/29/24 01/29/24 01/29/24 Range/Units 05:00 05:00 05:04 WBC (3.8-10.6) k/uL RBC (4.30-5.90) m/uL Hgb (13.0-17.5) gm/dL Hct (39.0-53.0) % RDW (11.5-15.5) % Plt Count (150-450) k/uL Neutrophils # (1.3-7.7) k/uL Lymphocytes # (1.0-4.8) k/uL PT 24.2 H (10.0-12.5) sec INR 2.4 H (<1.2) Sodium 127 L (137-145) mmol/L Chloride (98-107) mmol/L Carbon Dioxide 21 L (22-30) mmol/L BUN 27 H (9-20) mg/dL Creatinine 1.76 H (0.66-1.25) mg/dL Glucose 106 H (74-99) mg/dL POC Glucose (mg/dL) 113 H (70-110) mg/dL Calcium 7.0 L (8.4-10.2) mg/dL Microbiology - Last 24 Hours (Table) 01/26/24 04:24 Blood Culture Gram Stain - Final Blood Blood Culture - Final Methicillin resist S. aureus Molecular ID
[2024-01-29] MEDS: FUROSEMIDE 10 MG/ML 10 ML VIAL IV STA (09:52)
--- NOTE | 2024-01-29 10:43 | P.PN ---
Subjective Patient is seen in follow-up for acute kidney injury. Remains oliguric. On Levophed. IV fluids discontinued today. Vital signs are stable. On vasopressor support. General: No acute distress. HEENT: Head exam is unremarkable. LUNGS: No audible rhonchi or wheezes. HEART: Rate and Rhythm are regular. ABDOMEN: Mild distention. Soft. Hernia noted. EXTREMITITES: 1+ edema. Objective - Vital Signs Vital signs: Vital Signs Temp 98.1 F 01/29/24 08:00 Pulse 121 H 01/29/24 10:30 Resp 12 01/29/24 10:30 BP 92/62 01/29/24 10:30 Pulse Ox 84 L 01/29/24 10:30 FiO2 Intake & Output 01/28/24 01/29/24 01/29/24 18:59 06:59 18:59 Intake Total 5890.235 3747.473 418.495 Output Total 410 0 0 Balance 425.001 2738.473 418.495 Weight 95.7 kg Intake: IV 825 950 225 DAPTOmycin 950 mg In 50 Sodium Chloride 0.9% 50 ml @ 100 mls/hr IVPB Q24H [facility] Rx#:[id number] Sodium Chloride 0.9% 1, 825 900 225 000 ml @ 10 mls/hr IV . Q24H [facility] Rx#:[id number] Intake, IV Titration 112.577 189.473 43.495 Amount Norepinephrine 32 mg In 112.577 189.473 43.495 Sodium Chloride 0.9% 250 ml @ 0.03 MCG/KG/MIN 1. 295 mls/hr IV .Q24H [facility] Rx#:[id number] Oral 150 Hemodialysis 400 Output: Urine 10 0 0 Hemodialysis 400 Hemodialysis Net Amount 0 Other: Voiding Method Indwelling Catheter Indwelling Catheter # Voids 0 0 0 ABP, PAP, CO, CI - Last Documented Arterial Blood Pressure 96/52 - Labs CBC & Chem 7: 01/29/24 05:00 01/29/24 05:00 Labs: Abnormal Lab Results - Last 24 Hours (Table) 01/29/24 01/29/24 01/29/24 Range/Units 05:00 05:00 05:00 WBC 10.8 H (3.8-10.6) k/uL RBC 2.93 L (4.30-5.90) m/uL Hgb 9.2 L (13.0-17.5) gm/dL Hct 28.1 L (39.0-53.0) % RDW 20.2 H (11.5-15.5) % Plt Count 60 L (150-450) k/uL Neutrophils # 9.4 H (1.3-7.7) k/uL Lymphocytes # 0.3 L (1.0-4.8) k/uL PT 24.2 H (10.0-12.5) sec INR 2.4 H (<1.2) Sodium 127 L (137-145) mmol/L Carbon Dioxide 21 L (22-30) mmol/L BUN 27 H (9-20) mg/dL Creatinine 1.76 H (0.66-1.25) mg/dL Glucose 106 H (74-99) mg/dL POC Glucose (mg/dL) (70-110) mg/dL Calcium 7.0 L (8.4-10.2) mg/dL 01/29/24 Range/Units 05:04 WBC (3.8-10.6) k/uL RBC (4.30-5.90) m/uL Hgb (13.0-17.5) gm/dL Hct (39.0-53.0) % RDW (11.5-15.5) % Plt Count (150-450) k/uL Neutrophils # (1.3-7.7) k/uL Lymphocytes # (1.0-4.8) k/uL PT (10.0-12.5) sec INR (<1.2) Sodium (137-145) mmol/L Carbon Dioxide (22-30) mmol/L BUN (9-20) mg/dL Creatinine (0.66-1.25) mg/dL Glucose (74-99) mg/dL POC Glucose (mg/dL) 113 H (70-110) mg/dL Calcium (8.4-10.2) mg/dL Microbiology - Last 24 Hours (Table) 01/26/24 04:24 Blood Culture Gram Stain - Final Blood Blood Culture - Final Methicillin resist S. aureus Molecular ID Assessment and Plan Plan: Assessment: 1. Acute kidney injury secondary to ATN secondary to septic shock. Creatinine 1.93 dated January 27 2024. Baseline creatinine near 1. Oliguric. Started on hemodialysis January 27, 2024. 2. Septic shock secondary to MRSA bacteremia. Questionable endocarditis. No plans for NICOLE at this time. 3. Hyponatremia secondary to acute kidney injury. Hypervolemic. 4. Metabolic acidosis secondary to acute kidney injury status post bicarb drip. On oral bicarb. 5. History of liver cirrhosis requiring weekly paracentesis. Last paracentesis January 21, 2024 with 3.2 L drained. 6. Moderate mitral and aortic regurgitation. 7. Pericardial effusion status post pericardial drain. Plan: Plan to hold hemodialysis today. IV fluids discontinued. Scheduled to receive a dose of IV Lasix today. Wean Levophed. Phosphorus level 3.6 dated January 28, 2024. Potassium replaced. Comfort measures being considered. Prognosis guarded.
--- NOTE | 2024-01-29 11:55 | P.PN ---
Subjective Progress Note Date: 01/29/24 Principal diagnosis: Septic shock with MRSA bacteremia Patient is a 63-year-old male with past medical history significant for liver cirrhosis, abdominal ascites with weekly paracentesis, pancreatitis, alcoholism, among other things. Of note, patient had a recent hospitalization August 2023 where he was weak and confused and found to have severe hyponatremia. He did require 3% sodium infusion and brief ICU admission at that time. Patient sent in from [facility] last night. Reportedly, had multiple falls over the past couple days. Last night, he was found on the ground. Patient reports that he may have been on the ground for 2 to 3 hours. States that his legs just gave out. Denies losing consciousness. Denies losing hitting his head. States he landed on his right shoulder, which is a little sore. No limitation in motion or obvious trauma. skin tears noted bilateral upper extremitites. He does appear to be in a positive fluid balance. Does take Lasix, Aldactone, and salt tablets on outpatient basis. Also, undergoes weekly paracentesis by IR, and his next paracentesis is scheduled for tomorrow. His abdomen is full and distended. Nontender. He has severe bilateral lower extremity edema. On arrival to the emergency department he was noted to be hypotensive, has missed all 3 of his doses of midodrine yesterday. CBC: WBC count 15.9, hemoglobin 9.5, hematocrit 29.7, platelets 155. Coagulation profile includes a PT of 15.7, INR of 1.5, APTT 33.6. CMP on arrival: Sodium 113, potassium 5.1, chloride 92, serum bicarb 13, BUN 18, creatinine 0.99, glucose 114. LFTs unremarkable. Urinalysis showing moderate leukocytes and occasional bacteria. Patient denies any troubles or difficulty urinating, no dysuria, no fevers, flank pain, hematuria. No polyuria or excessive water intake. No notable fluid losses. Generalized weakness and falls are chief symptoms. No confusion, seizures, coma. Hypothyroidism and adrenal insufficiency previously ruled out. Nephrology has been consulted, is requesting this patient be monitored in the intensive care unit in case he needs 3% hypertonic saline. Most recent sodium is 112, however, the Lasix is still not been given due to hypotension. On 01/22/2024, patient is being seen for a follow-up. Awake and alert. No significant respiratory distress. The patient is currently on room air oxygen with a pulse ox of 98%. Abdominal paracentesis was done yesterday and the fluid was negative for infection. Culture still pending. Earlier this morning, the patient is on hypertonic saline 3% which is running at 20 cc an hour. Sodium level was 116 and subsequently upon 918. He has 1.07. The patient has a serum bicarb of 14. Patient will be given IV bicarb 100 mL equivalents total IV and she will be started on oral bicarb supplements. Urine output is in order of 10 cc an hour. Blood culture was positive for MRSA. Rocephin was discontinued and the patient was started on vancomycin. The patient is also on midodrine. The patient is on octreotide. 01/23/2024, the patient is being seen for a follow-up. The patient is awake and alert and the patient remains on room air oxygen. He did have staff aureus bacteremia the patient is currently on vancomycin. He remains hypotensive and the patient is currently on low-dose norepinephrine which is running at 0.08 mcg/kg/min. The patient remains on hypertonic saline 3% running at 20 cc an hour and the patient's sodium level is at 121. He does have some ascites. Urine output is in order of 20 cc an hour. White cell count of 22.9 with a hemoglobin 9.2. No evidence of any GI bleeding. No evidence of any encephalopathy. BUN is 27 with a creatinine of 1.1 and a potassium of is at 4.5. Remains on IV Rocephin and vancomycin. Remains on midodrine. Remains on pressors. Remains on octreotide. On 01/24/2024, the patient remains, comfortable on room air oxygen. He remains hypotensive as the patient was septic and the blood cultures positive for gram- positive cocci in clusters suggestive of MRSA and the patient remains on vancomy osmin. The patient currently is on norepinephrine which is running at 0.08 mcg/kg/min. Hypertonic saline was discontinued and the patient is currently on KVO IV fluids. Echocardiogram showed a ejection fraction of 50 to 55%. Large pericardial effusion without tamponade physiology. No clear indication for any vegetation at this point in time based on the routine transthoracic echocardiogram. The white cell count of 13.6, hemoglobin is at 9 and a platelet count is 101. Sodium is at 122, BUN is 32 with a creatinine of 1.38, AST is 132, ALT 75 and alkaline phosphatase 122. Vancomycin trough is 34.5. Blood sugar is at 127. Repeat blood cultures will be obtained for today. No significant encephalopathy. No respiratory distress. He does have abdominal ascites with a large abdominal wall hernia also noted/umbilical hernia. On 01/25/2024, the patient is being seen for a follow-up. The patient is slightly confused on today's evaluation and urine output is low. He remains hypotensive on pressors and the patient is currently on norepinephrine running at the lower dose to support his blood pressure. Repeat blood cultures still positive for MRSA/gram-positive cocci and the patient remains on vancomycin. As noted, he has a large pericardial effusion without any tamponade. Cardiology and cardiothoracic surgery on the case. The patient will likely need a pericardiocentesis today. Meanwhile, no major edema lower extremities. Urine output is low. Is developed progressive worsening renal function the creatinine is up to 1.6. BUN 36. Sodium levels at 125. Bicarb level is down to 12. He remains on a bicarb infusion with half-normal saline and a total of 100 mEq of sodium bicarb. The white cell count of 13.7. Hemoglobin 8.5 and a platelet count of 85. proBNP level is 38,000. Vancomycin trough from yesterday was 24.5. He remains on room air oxygen. Patient seen today on 01/26/2024, remains in the ICU, still requiring significant amount of pressors he is on norepinephrine at 0.18 mcg/kg/min still receiving bicarb drip at 100 cc/h still on Sandostatin. Patient has received 2 units of fresh frozen plasma INR is 2.1 today. Patient underwent pericardiocentesis yesterday, 470 mL out, cultures on the fluid are pending. Cytology is pending. Patient is receiving treatment for MRSA sepsis and septic shock with bacteremia, cultures on the pericardial fluid are pending t echocardiogram showed no evidence of vegetations on the valves. Patient continues to have ascites intermittently and he has a large umbilical hernia. Urine output remains marginal WBC count is 9.2 hemoglobin is 8 sodium is 125 potassium 4.0 chloride 101 bicarb is 16 BUN is 41 creatinine 1.74. Patient remains oliguric and spite of fluids, bicarb, and norepinephrine. Patient was seen today on 01/27/2024, patient remains in the ICU, still requiring second amount of pressors. He is on norepinephrine at 0.14 mcg/kg/min, remains on bicarb drip at 100 cc/h seen by nephrology today, and planning hemodialysis/renal replacement therapy. Patient will have a hemodialysis catheter placed today. Blood cultures continue to show positive MRSA, even on the blood cultures done yesterday after few days of being on treatment. Hence patient will eventually need a transesophageal echocardiogram, this is most likely a picture of endocarditis with MRSA infection unless proven otherwise. Patient is being followed by cardiology but for some reason it is felt that the patient is not stable enough for transesophageal echocardiogram we are in the process of tapering his norepinephrine as tolerated. In the meantime the patient remains on daptomycin for his presumptive endocarditis/MRSA bacteremia persistent. Labs today showed WBC count of 9.3 hemoglobin 8.4 sodium is 127 potassium 3.9 BUN is 43 creatinine 1.93 BNP level remains high at 38,800 x-ray today showed evidence of cardiomegaly, small pleural effusions, and some component of interstitial edema with pulmonary vasculature prominence Patient seen today on 01/28/2024, remains in the ICU, on room air, patient is still requiring norepinephrine at 0.18 mcg/kg/min IV fluids at 75 cc/h. Patient is undergoing hemodialysis again today, remains on daptomycin for his MRSA bacteremia which is most likely related to endocarditis unless proven otherwise. Cardiology felt is not stable enough for transesophageal echocardiogram. Patient underwent left radial arterial line placement today by me, and will try to arrange for interventional radiology to perform paracentesis on this patient. In the meantime patient is comfortable, not in distress, and undergoing hemodialysis. WBC count is 10.4 hemoglobin is 8.1 electrolytes are normal BUN is 36 creatinine 1.7 Evaluated today on 01/29/2024, remains in the ICU remains on pre ssors/norepinephrine at 0.3 mcg/kg/min blood pressure remains marginal patient has hardly any urine output he has elevated INR of 2.4 continues to have ascites continues to have low sodium of 127 continues to have low platelets, he is receiving the daptomycin as per infectious disease, no plans for NICOLE, and the overall picture remains extremely poor. Today I found out from the nurses that his family is coming in sometime today with papers documenting DNR CODE STATUS, at the same time they would like to go to comfort care measures. Considering the overall picture of his clinical status, I have no issue with comfort care, prognostic picture is extremely poor. Patient is becoming more and more edematous, hence I am cutting down his IV fluid to KVO, and I am recommending a 1 dose of Lasix 80 mg IV push. Nephrology is planning to hold on hemodialysis and again if patient goes for comfort care measures, no need to pursue this and would likely wean and discontinue Levophed Objective - Vital Signs Vital signs: Vital Signs Temp 98.1 F 01/29/24 08:00 Pulse 118 H 01/29/24 11:00 Resp 13 01/29/24 11:00 BP 92/62 01/29/24 11:00 Pulse Ox 96 01/29/24 11:00 FiO2 Intake & Output 01/28/24 01/29/24 01/29/24 18:59 06:59 18:59 Intake Total 9452.066 9549.473 448.495 Output Total 410 0 0 Balance 357.413 3925.473 448.495 Weight 95.7 kg Intake: IV 825 950 255 DAPTOmycin 950 mg In 50 Sodium Chloride 0.9% 50 ml @ 100 mls/hr IVPB Q24H [facility] Rx#:[id number] Sodium Chloride 0.9% 1, 825 900 255 000 ml @ 10 mls/hr IV . Q24H [facility] Rx#:[id number] Intake, IV Titration 112.577 189.473 43.495 Amount Norepinephrine 32 mg In 112.577 189.473 43.495 Sodium Chloride 0.9% 250 ml @ 0.03 MCG/KG/MIN 1. 295 mls/hr IV .Q24H [facility] Rx#:[id number] Oral 150 Hemodialysis 400 Output: Urine 10 0 0 Hemodialysis 400 Hemodialysis Net Amount 0 Other: Voiding Method Indwelling Catheter Indwelling Catheter Indwelling Catheter # Voids 0 0 0 ABP, PAP, CO, CI - Last Documented Arterial Blood Pressure 97/41 - Exam GENERAL EXAM: Alert, 63-year-old white male, on room air, not in any distress HEAD: Normocephalic and atraumatic EYES: Normal reaction of pupils, equal size. NOSE: Clear with pink turbinates. THROAT: No erythema or exudates. NECK: No masses, no JVD. CHEST: No chest wall deformity. LUNGS: Fine crackles at the bases no rhonchi no wheezes CVS: Distant S1 and S2 normal 2/6 systolic murmur throughout the precordium ABDOMEN: Positive ascites, nontender, large umbilical hernia noted. SKIN: No rashes. Bilateral upper extremity skin tears. CENTRAL NERVOUS SYSTEM: Alert oriented x 3 no gross focal neurologic deficit EXTREMITIES: There is bilateral 3+ lower extremity edema. No clubbing, or cyanosis. Peripheral pulses are intact. - Labs CBC & Chem 7: 01/29/24 05:00 01/29/24 05:00 Labs: Abnormal Lab Results - Last 24 Hours (Table) 01/29/24 01/29/24 01/29/24 Range/Units 05:00 05:00 05:00 WBC 10.8 H (3.8-10.6) k/uL RBC 2.93 L (4.30-5.90) m/uL Hgb 9.2 L (13.0-17.5) gm/dL Hct 28.1 L (39.0-53.0) % RDW 20.2 H (11.5-15.5) % Plt Count 60 L (150-450) k/uL Neutrophils # 9.4 H (1.3-7.7) k/uL Lymphocytes # 0.3 L (1.0-4.8) k/uL PT 24.2 H (10.0-12.5) sec INR 2.4 H (<1.2) Sodium 127 L (137-145) mmol/L Carbon Dioxide 21 L (22-30) mmol/L BUN 27 H (9-20) mg/dL Creatinine 1.76 H (0.66-1.25) mg/dL Glucose 106 H (74-99) mg/dL POC Glucose (mg/dL) (70-110) mg/dL Calcium 7.0 L (8.4-10.2) mg/dL 01/29/24 Range/Units 05:04 WBC (3.8-10.6) k/uL RBC (4.30-5.90) m/uL Hgb (13.0-17.5) gm/dL Hct (39.0-53.0) % RDW (11.5-15.5) % Plt Count (150-450) k/uL Neutrophils # (1.3-7.7) k/uL Lymphocytes # (1.0-4.8) k/uL PT (10.0-12.5) sec INR (<1.2) Sodium (137-145) mmol/L Carbon Dioxide (22-30) mmol/L BUN (9-20) mg/dL Creatinine (0.66-1.25) mg/dL Glucose (74-99) mg/dL POC Glucose (mg/dL) 113 H (70-110) mg/dL Calcium (8.4-10.2) mg/dL Microbiology - Last 24 Hours (Table) 01/26/24 04:24 Blood Culture Gram Stain - Final Blood Blood Culture - Final Methicillin resist S. aureus Molecular ID Assessment and Plan Assessment: Impression: Septic shock secondary to MRSA bacteremia and pericardial effusion without tamponade findings. Transthoracic echocardiogram showed no evidence of vegetations, however the patient would likely need a transesophageal echo to confirm or rule out endocarditis. Based on the persistence of bacteremia, this is an endocarditis picture unless proven otherwise Hypotension, secondary to septic shock, still requiring antibiotics and requir ing pressors/norepinephrine Severe hyponatremia, improving. Acute kidney injury/acute tubular necrosis secondary to sepsis septic shock and hypotension, and the patient is developing now oliguria Liver cirrhosis with abdominal ascites and weekly paracentesis, last paracentesis was done 01/21/2020 for a total of 3 to 4 L of fluid was aspirated. Patient is known to have history of alcoholism. Coagulopathy, secondary to above Acute leukocytosis, secondary to bacteremia Anemia of chronic disease History of pancreatitis Frequent falls Pericardial effusion without any tamponade physiology. Normal LV function Commendation: Continue hemodynamic support/pressors for now, titrate accordingly, however if family decides to go with comfort care measures, I will discontinue norepinephrine and go to comfort care Continue antibiotics /daptomycin Continue oral bicarb, Hemodialysis presently on hold Consider another paracentesis for his ascites, unless we go to comfort care today Continue midodrine Will continue to follow while in the ICU Time with Patient: Less than 30
[2024-01-29 12:30] VITALS: TEMP 97.8
[2024-01-29] MEDS ORDERED: ONDANSETRON 4 MG/2 ML VIAL IVP PRN (15:06)
[2024-01-29] MEDS ORDERED: ATROPINE OPHTH SOLN 1% 5ML BTL SUBLINGUAL PRN (15:06)
[2024-01-29] MEDS: MORPHINE SULFATE 2 MG/ML SYRINGE IV PRN (15:13)
[2024-01-29] MEDS: MORPHINE SULFATE (100 MG/2 ML) 100 MG in SODIUM CHLORIDE 0.9% 100 ML IV SCH (15:36)
[2024-01-29 16:06] VITALS: BP 91/68
[2024-01-29 17:36] VITALS: PULSE 120; RESP 14
[2024-01-29] MEDS: SCOPOLAMINE 1 MG/72 HR PATCH TRANSDERM SCH (21:33)
--- NOTE | 2024-01-30 15:02 | P.PN ---
Subjective Progress Note Date: 01/29/24 Principal diagnosis: Reason for follow-up is MRSA bacteremia Patient is a 63-year-old male with a past medical history significant for hypertension, cirrhosis of the liver pancreatitis pneumonia patient was admitted to the hospital for frequent falls and low sodium also have MRSA bacteremia probably this consultation echocardiogram did shows large pericardial effusion and the patient is status post pericardial window completed on 01/25/2024. On today's evaluation that is 01/29/2024,the patient denies any fever or any chills, patient is breathing comfortably on 2 L nasal cannula oxygen the patient denies chest pain shortness of breath and no significant cough, patient denies abdominal pain, no nausea vomiting or diarrhea. No new symptoms. Patient white count is 10.8, creatinine 1.76 Blood culture from yesterday currently pending Objective - Vital Signs Vital signs: Vital Signs Temp 97.9 F 01/29/24 04:00 Pulse 112 H 01/29/24 07:00 Resp 18 01/29/24 07:00 BP 94/45 01/29/24 02:15 Pulse Ox 94 L 01/29/24 07:00 FiO2 Intake & Output 01/28/24 01/29/24 01/29/24 18:59 06:59 18:59 Intake Total 8186.898 2232.473 75 Output Total 410 0 0 Balance 034.688 1281.473 75 Weight 95.7 kg Intake: IV 825 950 75 DAPTOmycin 950 mg In 50 Sodium Chloride 0.9% 50 ml @ 100 mls/hr IVPB Q24H [facility] Rx#:[id number] Sodium Chloride 0.9% 1, 825 900 75 000 ml @ 75 mls/hr IV . [id number] [facility] Rx#:[id number] Intake, IV Titration 112.577 189.473 Amount Norepinephrine 32 mg In 112.577 189.473 Sodium Chloride 0.9% 250 ml @ 0.03 MCG/KG/MIN 1. 295 mls/hr IV .Q24H [facility] Rx#:[id number] Hemodialysis 400 Output: Urine 10 0 0 Hemodialysis 400 Hemodialysis Net Amount 0 Other: Voiding Method Indwelling Catheter Indwelling Catheter # Voids 0 0 0 ABP, PAP, CO, CI - Last Documented Arterial Blood Pressure 101/45 - Exam GENERAL DESCRIPTION: An elderly male lying in bed in no distress RESPIRATORY SYSTEM: Unlabored breathing , decreased breath sounds at bases HEART: S1 S2 regular rate and rhythm , ABDOMEN: Soft , no tenderness EXTREMITIES: No edema feet - Labs CBC & Chem 7: 01/29/24 05:00 01/29/24 05:00 Labs: Abnormal Lab Results - Last 24 Hours (Table) 01/28/24 01/28/24 01/29/24 Range/Units 09:15 09:15 05:00 WBC 10.8 H (3.8-10.6) k/uL RBC 2.57 L 2.93 L (4.30-5.90) m/uL Hgb 8.1 L 9.2 L (13.0-17.5) gm/dL Hct 24.5 L 28.1 L (39.0-53.0) % RDW 19.4 H 20.2 H (11.5-15.5) % Plt Count 49 L 60 L (150-450) k/uL Neutrophils # 9.0 H 9.4 H (1.3-7.7) k/uL Lymphocytes # 0.3 L 0.3 L (1.0-4.8) k/uL PT (10.0-12.5) sec INR (<1.2) Sodium 130 L (137-145) mmol/L Chloride 97 L (98-107) mmol/L Carbon Dioxide (22-30) mmol/L BUN 36 H (9-20) mg/dL Creatinine 1.71 H (0.66-1.25) mg/dL Glucose (74-99) mg/dL POC Glucose (mg/dL) (70-110) mg/dL Calcium 7.0 L (8.4-10.2) mg/dL 01/29/24 01/29/24 01/29/24 Range/Units 05:00 05:00 05:04 WBC (3.8-10.6) k/uL RBC (4.30-5.90) m/uL Hgb (13.0-17.5) gm/dL Hct (39.0-53.0) % RDW (11.5-15.5) % Plt Count (150-450) k/uL Neutrophils # (1.3-7.7) k/uL Lymphocytes # (1.0-4.8) k/uL PT 24.2 H (10.0-12.5) sec INR 2.4 H (<1.2) Sodium 127 L (137-145) mmol/L Chloride (98-107) mmol/L Carbon Dioxide 21 L (22-30) mmol/L BUN 27 H (9-20) mg/dL Creatinine 1.76 H (0.66-1.25) mg/dL Glucose 106 H (74-99) mg/dL POC Glucose (mg/dL) 113 H (70-110) mg/dL Calcium 7.0 L (8.4-10.2) mg/dL Microbiology - Last 24 Hours (Table) 01/26/24 04:24 Blood Culture Gram Stain - Final Blood Blood Culture - Final Methicillin resist S. aureus Molecular ID Assessment and Plan (1) MRSA bacteremia Status: Acute Code(s): R78.81 - BACTEREMIA; B95.62 - METHICILLIN RESIS STAPH INFCT CAUSING DISEASES CLASSD [id number] SNOMED Code(s): 32505499602344436 (2) Leukocytosis Status: Acute Code(s): D72.829 - ELEVATED WHITE BLOOD CELL COUNT, UNSPECIFIED SNOMED Code(s): 610623558 (3) Skin tear Status: Acute Code(s): MLS4049 - SNOMED Code(s): 753582402 Plan: 1patient with MRSA bacteremia in this patient presented to the hospital with fall did have some skin maceration noticed to have significant hyponatremia however patient did not have any fever during this admission did have elevated white count of chest x-ray was negative urine is positive however urine cultures came back negative source of this bacteremia is likely skin and soft tissue however if any persistent bacteremia will need to rule out endovascular source he already has the echocardiogram did not show any vegetation and large effusion but no tamponade phenomena 2-patient did have persistent bacteremia highly suspicious for endovascular source, currently waiting for [facility] cardiology waiting for condition to stabilize before attempting the procedure 3-patient to continue with daptomycin and rifampin , however as per discussion with the nursing staff plan is for possible hospice which may be appropriate in that case antibiotics can be safely discontinued Dictation was produced using [employer] dictation software. please excuse any grammatical, word or spelling errors. Time with Patient: Less than 30
--- NOTE | 2024-01-30 15:27 | P.PN ---
Subjective Progress Note Date: 01/29/24 HISTORY OF PRESENT ILLNESS: This is a 63 year old male with a previous medical history significant for hypertension and hypertensive cardiovascular disease, hyperlipidemia, history of pancreatitis in the past along with prior history of sepsis due to cellulitis about 2 year ago, history of chronic alcoholic hepatitis with alcoholic liver cirrhosis for which he has been following with Dr. Smith as an outpatient and has been getting a weekly paracentesis at [facility] every Friday, patient was recently hospitalized at [facility] from two 01/05 2024 for significant hyponatremia with a sodium level as low as 118, patient was treated with fluid restriction as well as salt tablets, and he was treated with IV diuretics in the form of Lasix and spironolactone, his sodium got as good as 123, I believe the patient does have reset osmostat at this point in time, and he has a new baseline at around 04/29/2024, patient was brought into the emergency department at [facility] this time because of recurrent falls over the last few weeks with increased falls 3 times, he fell against his right shoulder, he has limited range of motion of the right shoulder, patient has minimal bruises in the right knee, he has significant bruising in the left hip, he does appear to have edema in the abdomen as well as the upper thigh, he does not appear to have a significant edema both lower extremities, initially was started on Lasix 40 mg IV push every 12 hours, and the patient was having good urine output, his sodium went up to 115, then the patient sodium went down to 114 after he was given 60 cc of 3% hypertonic solution, therefore he was taken off that after nephrology seen the patient, and he was started on normal saline 1 L over the next hour, recheck his sodium level at 330, he was also started on Sandostatin 100 mcg IV push every 8 hours for hepatorenal syndrome, patient was admitted to the hospital he was also found to have a significant leukocytosis he was started on ceftriaxone, he had paracentesis in the ICU and his fluid were sent for cell count and differential rule out spontaneous bacterial peritonitis patient does not appear to have any fever or chills at this time he does not have any fever at this point in time either. 01/21: Patient is laying down in bed he appears to be very weak, he is in atrial fibrillation with heart rate is around 116, patient has no chest pain, he appears to be somewhat short of breath, he has been on fluid restriction, he is asking to reduce his fluid restriction to 1500 cc in a 24 hours, will continue to follow-up with the patient very closely, will obtain cardiology consultation, patient continues to have significant pain in his shoulders, he was started on morphine 2 mg IV push every 4 hours as needed for pain control, we will continue to follow-up the patient in the intensive care unit, monitor input and output and daily weight, blood cultures are positive for methicillin-resistant Staphylococcus aureus, patient was started on IV antibiotic in the form of vancomycin pharmacy to dose his peak and trough, continue ceftriaxone 1 g every back every 24 hours, patient continues to have leukocytosis, we will monitor the patient very closely. Infectious disease consultation will be obtained. 01/22: Patient sitting up in bed in no apparent distress, he is more awake and more alert today, his sodium is at 125, we will discontinue hypertonic saline 3%, continue patient on sodium bicarbonate tablet 650 mg orally twice every day, monitor the patient CMP over the next 24 hours, continue fluid restriction 1500 cc, continue IV antibiotic in the form of vancomycin and Rocephin, consult infectious disease Dr. Randle, patient has been followed by pulmonary medicine as well as nephrology, will continue to follow-up with the patient very closely patient was seen in consultation by cardiology, he was started on metoprolol 12.5 mg orally 3 times every day, will continue rate control, patient is not a candidate for anticoagulation due to his increased risk of bleeding. Echocardiogram showed ejection fraction of 55%, with moderate mitral regurgitation and aortic regurgitation with a large pericardial effusion without evidence of tamponade cardiology is following. 01/23: Patient sitting up in the bed that he appears to be somewhat short of breath, he continues to be in the fluid restriction, his last sodium is 127, he was started on sodium bicarbonate drip by nephrology, he did receive 1 dose of Lasix and his urine output is very low, patient appears to be edematous at this time, he does appear to have a significant pericardial effusion, will consult cardiothoracic surgery for possible pericardiocentesis, patient also will be started on Lasix 80 mg IV push every 12 hours, continue Levophed drip at this time, monitor the patient very closely, patient appears to be critical at this p oint in time, I spoke with the patient about his current prognosis and he continues to be full code for now. 01/24: Patient is laying down in bed in mild respiratory distress, his daughter was at the bedside, patient was seen in consultation by thoracic surgery he went for pericardiocentesis by Dr. Danielson with 450 cc of serosanguineous fluid and echo showed evidence of trivial fluid around the heart at this time, patient blood pressure did not recover from this at this point in time he continues to be hypotensive, he continued to be on Levophed, I had a long conversation with patient as well as nephrology today, the patient appears to be quite acidotic at this time, he was started on sodium bicarbonate drip at 100 cc an hour, he is not making any urine at this time about 10 cc an hour, if the patient is not improving over the next 24 hours he will need to be started on hemodialysis robert use the patient acidotic as well as not making any urine at this time he became oliguric at this point in time due to hepatorenal syndrome. Patient is aware of the prognosis continues to be very guarded at this time, we will follow-up with the patient very closely, patient continues to be bacteremic at this time with MRSA, infectious disease is following, patient may need to have a transesophagea l echocardiogram for evaluation of possible endocarditis. 01/25: Patient is laying down in bed appears to be in more distress today, he continues to be somewhat confused, his blood pressures on the lower side, doubled the amount of Levophed that he is taking, he has been in the ICU still, he still have the VAC in place from the pericardiocentesis, no more fluid coming out about 500 serosanguineous fluid still in there, patient's sodium is stable at 125, his creatinine is up to 1.7, I had a long conversation with the patient about the possibility of doing hemodialysis even for short period of time due to oliguric acute tubular necrosis and he stated that he will consider that, patient does appear to be quite sick at this point in time, and I believe we will continue to monitor the patient very closely provide him with the acute care, but the long-term prognosis continues to be guarded. His urine output continues to be marginal about 5 cc an hour. 01/26: Patient is laying down in bed appears to be quite fatigued and tired, he appears to be somewhat short of breath, he is using his accessory muscles, he will be given a breathing treatment in the form of albuterol at this point, he continues to be in the ICU, he has started hemodialysis today, only ultrafiltration, tomorrow he will have the actual hemodialysis tomorrow morning we will try to get some of the water out of his system, he seems to be more confused at this time, he appears to be generally weak, he does not appear to have improved over the last 24 hours he continues to have persistent bacteremia, he was switched to daptomycin at this point in time, infectious disease following, patient will need to have a transesophageal echocardiogram to rule out any endocarditis at this point in time. 01/27: Patient appears to be more confused today, he is asking for more water, he cannot get more fluid by mouth due to fluid restriction at 1500 cc, he is getting hemodialysis right now, he denies any chest pain at this time, he is less short of breath, he continues to have significant ascites in his abdomen, he is likely will be going for paracentesis by interventional radiology later on today, after he finishes his hemodialysis, he has been on daptomycin 950 mg IV piggyback every 24 hours, he has been on rifampin 600 mg orally twice every day per infectious disease, awaiting cardiology input regarding transesophageal echocardiogram for evaluation of possible endocarditis at this time as the patient continues to have a persistent MRSA bacteremia, patient also has been in the ICU for quite some times, he had suffered from significant medical debility, we will continue with current treatment plan, we will follow-up with the patient very closely. 01/28: Patient is laying down in bed appears to be in significant distress at this time, his son was at bedside, his daughter came earlier today, and she wanted her brother to come and see her father prior to initiating comfort package at this time, the patient is not doing well at this point he is currently confused, not able to make any decision I spoke with the patient about the current situation and that he is dying at this point in time and there is no hope of coming back patient was not able to go for hemodialysis because of hypotension he is on Levophed to keep his blood pressure under control, he has been not doing well over the last few days, his family is ready for comfort care, therefore we will start this as soon as possible. REVIEW OF SYSTEMS: Constitutional: No documented fever, no chills, no night sweats. No weight change. positive for weakness, positive for fatigue or lethargy. No daytime sleepiness. HEENT: No headache. No blurred vision or double vision, no loss of vision. No loss of Hearing, no ringing in the ears, no dizziness. No nasal drainage or congestion. No epistaxis. No sore throat. Lungs: positive for shortness of breath, occasional cough, no sputum production. positive for wheezing. Reports dyspnea with activity. Cardiovascular: No chest pain, positive for lower extremity edema. No palpitations. No paroxysmal nocturnal dyspnea. No orthopnea. No lightheadedness or dizziness. No syncopal episodes. Abdominal: Reports no abdominal pain. No nausea, vomiting. no diarrhea. No constipation. No bloody or tarry stools reports loss of appetite. Genitourinary: No dysuria, increased frequency, urgency. No urinary retention. Musculoskeletal: No myalgias. positive for muscle weakness, no gait dy sfunction, positive for frequent falls. No back pain. No neck pain. Integumentary: No wounds, no lesions. No rash or pruritus. Positive for unusual bruising. No change in hair or nails. Positive for ecchymosis of the right knee. Neurologic: No aphasia. No facial droop. No change in mentation. No head injury. No headache. No paralysis. No paresthesia. Psychiatric: positive for depression. positive for anxiety. No mood swings. Endocrine: No abnormal blood sugars. No weight change. PHYSICAL EXAMINATION: General: 63-year-old male is sitting up in bed in mild respiratory distress HEENT: Head is atraumatic, normocephalic, pupils were equal round reactive to light and recommendation, extraocular muscle movement were intact, sclera are deeply icteric, conjunctivae were pale, mucous membranes of the mouth are somewhat dry. Neck: Supple, positive for JVP, normal carotid upstroke bilaterally, no lymphadenopathy. Chest: Decreased breath sounds at the bases, few rhonchi, positive for expiratory wheezes, no chest wall tenderness, positive for mild intercostal retractions. Heart: First heart sound is normal, second heart sound is normal there is BLANCA 2/6 located at the left sternal border, irregular due to atrial fibrillation there is a pleural VAC in place. Abdomen: Soft, distended moderate ascites, no tenderness, positive bowel sounds. Extremities: There is +2 edema no calf tenderness DP +2 bilaterally. Neurologic examination: Patient is awake alert and oriented X 3, cranial nerves II-12 appear grossly intact, muscle power were 4 out of 5 in upper extremities and 3 out of 5 in bilateral lower extremities, deep tendon reflexes normal bilaterally. ASSESSMENT AND PLAN: 1. 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 fluid restriction 1500 cc, sodium has been stable at 127. 2. Persistent MRSA bacteremia. Patient has been switched to daptomycin we will continue with that, patient is been followed by infectious ease, patient will n eed to have a transesophageal echocardiogram for evaluation and rule out endocarditis. Also was started on rifampin 600 mg orally twice every day. 3. Atrial fibrillation patient is not a candidate for anticoagulation at this point in time, continue patient on metoprolol 12.5 mg orally 3 times every day, cardiology consultation appreciated. 4. Acute kidney injury due to acute tubular necrosis and vasomotor nephropathy patient has become oliguric with significant acidosis currently on hemodialysis through a José catheter placed in the left femoral vein, continue with that, continue with the sodium bicarb 1300 mg orally twice every day nephrology is following. 5. Hyperkalemia due to acute kidney injury due to ATN and the use of spironolactone. Resolved. 6. None anion gap metabolic acidosis. Continue patient on sodium bicarbonate 1300 mg orally twice every day, currently on dialysis. 7. Chronic liver cirrhosis with recurrence ascites. Status post weekly paracentesis. He just had last Friday. Fluid did not show evidence of any WBC no evidence of spontaneous bacterial peritonitis. 8. Hepatorenal syndrome. Patient is off Sandostatin, continue with hemodialysis for now. 9. GERD. Continue patient on Protonix 40 mg orally once every day. 10. DVT prophylaxis. Bilateral knee-high TAMI hose. 11. Orthostatic hypotension continue patient on midodrine 10 mg orally 3 times every day. Currently on Levophed. 12. Right shoulder pain likely related to rotator cuff tear continue current pain management for now. 13. Medical debility due to underlying liver cirrhosis physical therapy evaluation. 14. Large pericardial effusion without evidence of tamponade. Status post pericardiocentesis that was done by cardiothoracic surgery. 15. Overall prognosis very guarded. 16. comfort cares to be initiated since his son and daughter were at the beds [facility]. Objective - Vital Signs Vital signs: Vital Signs Temp 97.8 F 01/29/24 12:00 Pulse 120 H 01/29/24 12:15 Resp 18 01/29/24 12:15 BP 86/60 01/29/24 12:15 Pulse Ox 96 01/29/24 12:15 FiO2 Intake & Output 01/28/24 01/29/24 01/29/24 18:59 06:59 18:59 Intake Total 9432.961 2608.473 499.917 Output Total 410 0 0 Balance 329.488 7372.473 499.917 Weight 95.7 kg Intake: IV 825 950 270 DAPTOmycin 950 mg In 50 Sodium Chloride 0.9% 50 ml @ 100 mls/hr IVPB Q24H [facility] Rx#:[id number] Sodium Chloride 0.9% 1, 825 900 270 000 ml @ 10 mls/hr IV . Q24H [facility] Rx#:[id number] Intake, IV Titration 112.577 189.473 79.917 Amount Norepinephrine 32 mg In 112.577 189.473 79.917 Sodium Chloride 0.9% 250 ml @ 0.03 MCG/KG/MIN 1. 295 mls/hr IV .Q24H [facility] Rx#:[id number] Oral 150 Hemodialysis 400 Output: Urine 10 0 0 Hemodialysis 400 Hemodialysis Net Amount 0 Other: Voiding Method Indwelling Catheter Indwelling Catheter Indwelling Catheter # Voids 0 0 0 ABP, PAP, CO, CI - Last Documented Arterial Blood Pressure 83/36 - Labs CBC & Chem 7: 01/29/24 05:00 01/29/24 05:00 Labs: Abnormal Lab Results - Last 24 Hours (Table) 01/29/24 01/29/24 01/29/24 Range/Units 05:00 05:00 05:00 WBC 10.8 H (3.8-10.6) k/uL RBC 2.93 L (4.30-5.90) m/uL Hgb 9.2 L (13.0-17.5) gm/dL Hct 28.1 L (39.0-53.0) % RDW 20.2 H (11.5-15.5) % Plt Count 60 L (150-450) k/uL Neutrophils # 9.4 H (1.3-7.7) k/uL Lymphocytes # 0.3 L (1.0-4.8) k/uL PT 24.2 H (10.0-12.5) sec INR 2.4 H (<1.2) Sodium 127 L (137-145) mmol/L Carbon Dioxide 21 L (22-30) mmol/L BUN 27 H (9-20) mg/dL Creatinine 1.76 H (0.66-1.25) mg/dL Glucose 106 H (74-99) mg/dL POC Glucose (mg/dL) (70-110) mg/dL Calcium 7.0 L (8.4-10.2) mg/dL 01/29/24 Range/Units 05:04 WBC (3.8-10.6) k/uL RBC (4.30-5.90) m/uL Hgb (13.0-17.5) gm/dL Hct (39.0-53.0) % RDW (11.5-15.5) % Plt Count (150-450) k/uL Neutrophils # (1.3-7.7) k/uL Lymphocytes # (1.0-4.8) k/uL PT (10.0-12.5) sec INR (<1.2) Sodium (137-145) mmol/L Carbon Dioxide (22-30) mmol/L BUN (9-20) mg/dL Creatinine (0.66-1.25) mg/dL Glucose (74-99) mg/dL POC Glucose (mg/dL) 113 H (70-110) mg/dL Calcium (8.4-10.2) mg/dL Microbiology - Last 24 Hours (Table) 01/26/24 04:24 Blood Culture Gram Stain - Final Blood Blood Culture - Final Methicillin resist S. aureus Molecular ID
--- NOTE | 2024-01-30 15:30 | P.DS ---
Providers Date of admission: 01/20/24 22:52 Expected date of discharge: 01/30/24 Attending physician: Reggie Cho Consults: 01/20/24 22:52 Consult Physician Stat Consulting Provider: Yas Lino Consult Reason/Comments: acute hyponatremia Do you want consulting provider notified?: Already Contacted Consult Physician Urgent Consulting Provider: Gabbi Tran Consult Reason/Comments: acute hyponatremia Do you want consulting provider notified?: Already Contacted 01/22/24 14:24 Consult Physician Routine Consulting Provider: Ray Smith Consult Reason/Comments: New onset Afib rvr Do you want consulting provider notified?: Yes 01/23/24 15:40 Consult Physician Routine Consulting Provider: Geovanna Randle Consult Reason/Comments: MRSA Bacteremia Do you want consulting provider notified?: Yes 01/24/24 19:00 Consult Physician Routine Consulting Provider: Bryson Cherry Consult Reason/Comments: Pericardial effusion Do you want consulting provider notified?: Yes 01/27/24 09:23 Consult Physician Routine Consulting Provider: Sabino Hairston Consult Reason/Comments: Dialysis line placement Do you want consulting provider notified?: Yes Primary care physician: Reggie Cho Hospital Course: summary HISTORY OF PRESENT ILLNESS: This is a 63 year old male with a previous medical history significant for hypertension and hypertensive cardiovascular disease, hyperlipidemia, history of pancreatitis in the past along with prior history of sepsis due to cellulitis about 2 year ago, history of chronic alcoholic hepatitis with alcoholic liver cirrhosis for which he has been following with Dr. Smith as an outpatient and has been getting a weekly paracentesis at [facility] every Friday, patient was recently hospitalized at [facility] from 6 two 01/05 2024 for significant hyponatremia with a sodium level as low as 118, patient was treated with fluid restriction as well as salt tablets, and he was treated with IV diuretics in the form of Lasix and spironolactone, his sodium got as good as 123, I believe the patient does have reset osmostat at this point in time, and he has a new baseline at around 04/29/2024, patient was brought into the emergency department at [facility] this time because of recurrent falls over the last few weeks with increased falls 3 times, he fell against his right shoulder, he has limited range of motion of the right shoulder, patient has minimal bruises in the right knee, he has significant bruising in the left hip, he does appear to have edema in the abdomen as well as the upper thigh, he does not appear to have a significant edema both lower extremities, initially was started on Lasix 40 mg IV push every 12 hours, and the patient was having good urine output, his sodium went up to 115, then the patient sodium went down to 114 after he was given 60 cc of 3% hypertonic solution, therefore he was taken off that after nephrology seen the patient, and he was started on normal saline 1 L over the next hour, recheck his sodium level at 330, he was also started on Sandostatin 100 mcg IV push every 8 hours for hepatorenal syndrome, patient was admitted to the hospital he was also found to have a significant leukocytosis he was started on ceftriaxone, he had paracentesis in the ICU and his fluid were sent for cell count and differential rule out spontaneous bacterial peritonitis patient does not appear to have any fever or chills at this time he does not have any fever at this point in time either. 01/21: Patient is laying down in bed he appears to be very weak, he is in atrial fibrillation with heart rate is around 116, patient has no chest pain, he appears to be somewhat short of breath, he has been on fluid restriction, he is asking to reduce his fluid restriction to 1500 cc in a 24 hours, will continue to follow-up with the patient very closely, will obtain cardiology consultation, patient continues to have significant pain in his shoulders, he was started on morphine 2 mg IV push every 4 hours as needed for pain control, we will continue to follow-up the patient in the intensive care unit, monitor input and output and daily weight, blood cultures are positive for methicillin-resistant Staphylococcus aureus, patient was started on IV antibiotic in the form of vancomycin pharmacy to dose his peak and trough, continue ceftriaxone 1 g every back every 24 hours, patient continues to have leukocytosis, we will monitor the patient very closely. Infectious disease consultation will be obtained. 01/22: Patient sitting up in bed in no apparent distress, he is more awake and more alert today, his sodium is at 125, we will discontinue hypertonic saline 3%, continue patient on sodium bicarbonate tablet 650 mg orally twice every day, monitor the patient CMP over the next 24 hours, continue fluid restriction 1500 cc, continue IV antibiotic in the form of vancomycin and Rocephin, consult infectious disease Dr. Randle, patient has been followed by pulmonary medicine as well as nephrology, will continue to follow-up with the patient very closely patient was seen in consultation by cardiology, he was started on metoprolol 12.5 mg orally 3 times every day, will continue rate control, patient is not a candidate for anticoagulation due to his increased risk of bleeding. Echocardiogram showed ejection fraction of 55%, with moderate mitral r egurgitation and aortic regurgitation with a large pericardial effusion without evidence of tamponade cardiology is following. 01/23: Patient sitting up in the bed that he appears to be somewhat short of breath, he continues to be in the fluid restriction, his last sodium is 127, he was started on sodium bicarbonate drip by nephrology, he did receive 1 dose of Lasix and his urine output is very low, patient appears to be edematous at this time, he does appear to have a significant pericardial effusion, will consult cardiothoracic surgery for possible pericardiocentesis, patient also will be s tarted on Lasix 80 mg IV push every 12 hours, continue Levophed drip at this time, monitor the patient very closely, patient appears to be critical at this point in time, I spoke with the patient about his current prognosis and he continues to be full code for now. 01/24: Patient is laying down in bed in mild respiratory distress, his daughter was at the bedside, patient was seen in consultation by thoracic surgery he went for pericardiocentesis by Dr. Danielson with 450 cc of serosanguineous fluid and echo showed evidence of trivial fluid around the heart at this time, patient blood pressure did not recover from this at this point in time he continues to be hypotensive, he continued to be on Levophed, I had a long conversation with patient as well as nephrology today, the patient appears to be quite acidotic at this time, he was started on sodium bicarbonate drip at 100 cc an hour, he is not making any urine at this time about 10 cc an hour, if the patient is not improving over the next 24 hours he will need to be started on hemodialysis because the patient acidotic as well as not making any urine at this time he became oliguric at this point in time due to hepatorenal syndrome. Patient is aware of the prognosis continues to be very guarded at this time, we will follow-up with the patient very closely, patient continues to be bacteremic at this time with MRSA, infectious disease is following, patient may need to have a transesophageal echocardiogram for evaluation of possible endocarditis. 01/25: Patient is laying down in bed appears to be in more distress today, he continues to be somewhat confused, his blood pressures on the lower side, doubled the amount of Levophed that he is taking, he has been in the ICU still, he still have the VAC in place from the pericardiocentesis, no more fluid coming out about 500 serosanguineous fluid still in there, patient's sodium is stable at 125, his creatinine is up to 1.7, I had a long conversation with the patient about the possibility of doing hemodialysis even for short period of time due to oliguric acute tubular necrosis and he stated that he will consider that, patient does appear to be quite sick at this point in time, and I believe we will continue to monitor the patient very closely provide him with the acute care, but the long-term prognosis continues to be guarded. His urine output continues to be marginal about 5 cc an hour. 01/26: Patient is laying down in bed appears to be quite fatigued and tired, he appears to be somewhat short of breath, he is using his accessory muscles, he will be given a breathing treatment in the form of albuterol at this point, he continues to be in the ICU, he has started hemodialysis today, only ultrafiltration, tomorrow he will have the actual hemodialysis tomorrow morning we will try to get some of the water out of his system, he seems to be more confused at this time, he appears to be generally weak, he does not appear to have improved over the last 24 hours he continues to have persistent bacteremia, he was switched to daptomycin at this point in time, infectious disease following, patient will need to have a transesophageal echocardiogram to rule out any endocarditis at this point in time. 01/27: Patient appears to be more confused today, he is asking for more water, he cannot get more fluid by mouth due to fluid restriction at 1500 cc, he is getting hemodialysis right now, he denies any chest pain at this time, he is less short of breath, he continues to have significant ascites in his abdomen, he is likely will be going for paracentesis by interventional radiology later on today, after he finishes his hemodialysis, he has been on daptomycin 950 mg IV piggyback every 24 hours, he has been on rifampin 600 mg orally twice every day per infectious disease, awaiting cardiology input regarding transesophageal echocardiogram for evaluation of possible endocarditis at this time as the patient continues to have a persistent MRSA bacteremia, patient also has been in the ICU for quite some times, he had suffered from significant medical debility, we will continue with current treatment plan, we will follow-up with the patient very closely. 01/28: Patient is laying down in bed appears to be in significant distress at this time, his son was at bedside, his daughter came earlier today, and she wanted her brother to come and see her father prior to initiating comfort package at this time, the patient is not doing well at this point he is currently confused, not able to make any decision I spoke with the patient about the current situation and that he is dying at this point in time and there is no hope of coming back patient was not able to go for hemodialysis because of hypotension he is on Levophed to keep his blood pressure under control, he has been not doing well over the last few days, his family is ready for comfort care, therefore we will start this as soon as possible. 01/29: Comfort care started yesterday afternoon and the patient at 1:30 in the morning the cause of is alcoholic liver cirrhosis with hepatorenal syndrome leading to acute renal failure on hemodialysis along with atrial fibrillation and stigmata of chronic liver disease and metabolic and hepatic encephalopathy. Discharge diagnoses/ 1. 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 2. Persistent MRSA bacteremia with possible endocarditis associated with septic shock 3. Atrial fibrillation 4. Acute kidney injury due to acute tubular necrosis and vasomotor nephropathy patient has become oliguric with significant acidosis was on hemodialysis 5. Hyperkalemia due to acute kidney injury due to ATN and the use of spironolactone. 6. None anion gap metabolic acidosis. 7. Chronic liver cirrhosis with recurrence ascites. 8. Hepatorenal syndrome. 9. GERD. 10. Orthostatic hypotension 11. Right shoulder pain likely related to rotator cuff tear 12. Large pericardial effusion without evidence of tamponade. Status post pericardiocentesis Patient Condition at Discharge: Serious Plan - Discharge Summary Discharge Rx Participant: No New Discharge Prescriptions: No Action Folic Acid 1 mg PO DAILY tab Furosemide [Lasix] 40 mg PO DAILY tab Sodium Chloride Tab 1 gm PO BID Spironolactone [Aldactone] 50 mg PO BID #60 tab Pantoprazole [Protonix] 40 mg PO AC-BRKFST tab Midodrine [ProAmatine] 5 mg PO TID Potassium Chloride ER [K-Dur 20] 20 meq PO DAILY tablet Albuterol Inhaler [Ventolin Hfa Inhaler] 2 puff INHALATION RT-TID PRN PRN Reason: Shortness Of Breath traZODone HCL 150 mg PO HS Discharge Medication List Pantoprazole [Protonix] 40 mg PO AC-BRKFST tab 06/22/21 [Rx] Midodrine [ProAmatine] 5 mg PO TID 07/13/21 [History] Folic Acid 1 mg PO DAILY tab 07/18/21 [Rx] Potassium Chloride ER [K-Dur 20] 20 meq PO DAILY tablet 07/18/21 [Rx] Albuterol Inhaler [Ventolin Hfa Inhaler] 2 puff INHALATION RT-TID PRN 08/06/23 [History] Furosemide [Lasix] 40 mg PO DAILY tab 08/27/23 [Rx] Sodium Chloride Tab 1 gm PO BID 09/17/23 [History] traZODone HCL 150 mg PO HS 12/31/23 [History] Spironolactone [Aldactone] 50 mg PO BID #60 tab 01/05/24 [Rx] Follow up Appointment(s)/Referral(s): Reggie Cho MD [Primary Care Provider] - [facility], [NON-STAFF] - A Visiting Nurse, [NON-STAFF] - Discharge/Stand Alone Forms: AA Meetings [place], Who Do I Call?, Help In The Home, Outpatient Counseling, Inp Substance Abuse Facilities Discharge Disposition: - Preliminary Cause of Preliminary Cause of : Alcoholic liver ciirrhosis with MRSA Septic ray
--- NOTE | 2024-02-12 15:14 | CDI ---
Documentation Clarification Form Date: 02/12/2024 12:57:57 PM From: Oly Lake RN, CCDS Phone: [phone] Admit Date: 01/20/2024 10:52:00 PM Patient Name: Fred Kim Visit Number: [id number] Discharge Date: 01/30/2024 03:30:00 AM ATTENTION: The Clinical Documentation Specialists (CDI) and [facility] Coding Staff appreciate your assistance in clarifying documentation. Please respond to the clarification below the line at the bottom and electronically sign. The CDI & [facility] Coding staff will review the response and follow-up if needed. Please note: Queries are made part of the Legal Health Record. If you have any questions, please contact the author of this message via ITS. Doctor Reggie Cho The patient had septic shock secondary to Staph aureus/MRSA. Based on this information and the findings below, further clarification is requested. History/Risk Factors: HTN, CAD, HLD, pancreatitis, sepsis, chronic hyponatremia with SIADH and chronic alcoholic hepatitis with alcoholic liver cirrhosis. Presents with weakness and falls. Clinical Indicators: 01/19 Labs WBC 15.9, Lactic acid 4.7-2.5 01/20 Labs WBC 22.5, Lactic acid 2.0 01/20 Blood cultures: MRSA 01/21 Blood cultures: MRSA 01/23 Blood cultures: MRSA 01/19 Vital signs: Temp 98.8, HR 130, BP 119/60-82/67 01/20 H&P: "Leukocytosis likely etiology, rule out spontaneous bacterial peritonitis." 01/21 Nephrology: "MRSA bacteremia." 01/22 CC: "He remains hypotensive and the patient is currently on low-dose Norepinephrine which is running at 0.08 mcg/kg/min." 01/23 CC: "Septic shock secondary to Staph aureus/MRSA." 01/24 Nephrology: "Status post multiple fluid boluses for sepsis and hypotension." Discharge summary: "Persistent MRSA bacteremia with possible endocarditis associated with septic shock." Treatment: IV Levophed titrated 01/20-01/28 01/28 ID: "patient did have persistent bacteremia highly suspicious for endovascular source Antibiotics: IV Rocephin 1gm Q24H 01/20-01/24; IV Vancomycin 1500mg Q12H 01/21- 01/22; IV Vancomycin 1500mg on 01/23; IV Daptomycin 950mg Q24H 01/26-01/28: IV Daptomycin 550 mg Q24H 01/25-01/27; IV Bolus: 1L 0.9 NS x1 on 01/20, 01/21 and 01/22 Please clarify the Sepsis diagnosis: [x ] Sepsis, present on admission [ ] Sepsis, developed during stay, not present on admission [ ] Severe Sepsis with organ failure, present on admission [ ] Septic Shock, present on admission [ ] No additional diagnosis/not clinically significant [ ] Other, please specify [ ] Unable to determine MTDD
== END 2024-01-30 03:30 | disposition expired | DRG 871 ==
LOC: EC 19:00 → 2SICU 22:52 → 4SSUR 01-29 18:23
PROVIDERS: ADMIT Internal Medicine; ATTEND Internal Medicine
PROC: 0W9G3ZZ Drainage of Peritoneal Cavity, Percutaneous Approach (ICD-10-PCS; 2024-01-21)
PROC: 3E033XZ Introduction of Vasopressor into Peripheral Vein, Percutaneous Approach (ICD-10-PCS; 2024-01-22)
PROC: 0W9D30Z Drainage of Pericardial Cavity with Drainage Device, Percutaneous Approach (ICD-10-PCS; 2024-01-25)
PROC: 30233K1 Transfusion of Nonautologous Frozen Plasma into Peripheral Vein, Percutaneous Approach (ICD-10-PCS; 2024-01-25)
PROC: 5A1D70Z Performance of Urinary Filtration, Intermittent, Less than 6 Hours Per Day (ICD-10-PCS; principal; 2024-01-27)
PROC: 02HV33Z Insertion of Infusion Device into Superior Vena Cava, Percutaneous Approach (ICD-10-PCS; 2024-01-27)
PROC: 03HY32Z Insertion of Monitoring Device into Upper Artery, Percutaneous Approach (ICD-10-PCS; 2024-01-28)
PROC: 4A133B1 Monitoring of Arterial Pressure, Peripheral, Percutaneous Approach (ICD-10-PCS; 2024-01-28)
PROC: 4A133J1 Monitoring of Arterial Pulse, Peripheral, Percutaneous Approach (ICD-10-PCS; 2024-01-28)
DX: A41.02 Sepsis due to Methicillin resistant Staphylococcus aureus (principal); K76.7 Hepatorenal syndrome; N17.0 Acute kidney failure with tubular necrosis; R65.21 Severe sepsis with septic shock; E22.2 Syndrome of inappropriate secretion of antidiuretic hormone; I48.19 Other persistent atrial fibrillation; I31.39 Other pericardial effusion (noninflammatory); E87.20 Acidosis, unspecified; D68.9 Coagulation defect, unspecified; Z51.5 Encounter for palliative care; Z66 Do not resuscitate; R29.6 Repeated falls; E78.5 Hyperlipidemia, unspecified; I11.9 Hypertensive heart disease without heart failure; K21.9 Gastro-esophageal reflux disease without esophagitis; E87.5 Hyperkalemia; K70.31 Alcoholic cirrhosis of liver with ascites; K70.11 Alcoholic hepatitis with ascites; S51.012A Laceration without foreign body of left elbow, initial encounter; I95.1 Orthostatic hypotension; K42.9 Umbilical hernia without obstruction or gangrene; K43.9 Ventral hernia without obstruction or gangrene; M75.101 Unspecified rotator cuff tear or rupture of right shoulder, not specified as traumatic; D69.6 Thrombocytopenia, unspecified; D63.8 Anemia in other chronic diseases classified elsewhere; E87.70 Fluid overload, unspecified; I34.0 Nonrheumatic mitral (valve) insufficiency; Z79.899 Other long term (current) drug therapy
CPT/HCPCS: 36415; 71045; 71046; 76705; 80048; 80051; 80053; 80202; 81001; 82140; 82550; 83605; 83615; 83735; 83880; 83930; 83935; 84100; 84132; 84155; 84295; 84300; 85025; 85027; 85610; 85730; 86706; 86850; 86900; 86901; 87040; 87070; 87075; 87077; 87086; 87186; 87205; 87340; 89050; 90935; 93005; 93306; 93308; 94640; 96374; 99285